=== PATIENT | female | born 1960 | race Caucasian/White ===

== ENCOUNTER → 2016-11-30 | Outpatient (CLI) | payer BC ==
[2016-11-30 08:38] LABS: Basophils # (A) 0.1 k/uL (0-0.2); Basophils % (A) 1 %; CH 31.1; CHCM 32.5; Eosinophils # (A) 0.1 k/uL (0-0.7); Eosinophils % (A) 2 %; HDW 2.29; HGB 14.8 gm/dL (11.4-16.0); Luc # (Auto) 0.14; Luc % (Auto) 2; Lymphocytes % (A) 32 %; MCH 32.3 pg (25.0-35.0); MCHC 33.6 g/dL (31.0-37.0); MCV 95.9 fL (80.0-100.0); Mean Platelet Volume 6.6; Monocytes # (A) 0.3 k/uL (0-1.0); Monocytes % (A) 4 %; Neutrophils # (A) 3.7 k/uL (1.3-7.7); Neutrophils % (A) 59 %; RBC 4.59 m/uL (3.80-5.40); WBC 6.3 k/uL (3.8-10.6); WBC (Perox) 6.25
[2016-11-30 08:58] LABS: ALT 30 U/L (9-52); AST 25 U/L (14-36); Alkaline Phosphatase 39 U/L (38-126); Anion Gap 9 mmol/L; Blood Urea Nitrogen 32 mg/dL (7-17); Calcium 9.9 mg/dL (8.4-10.2); Carbon Dioxide 29 mmol/L (22-30); Chloride 106 mmol/L (98-107); Cholesterol 165 mg/dL (<200); Glucose 108 mg/dL (74-99); HDL Cholesterol 98 mg/dL (40-60); Non-African American GFR(MDRD) >60 (>60 ml/min/1.73 sqM); Potassium 4.8 mmol/L (3.5-5.1); Sodium 144 mmol/L (137-145); Total Bilirubin 0.5 mg/dL (0.2-1.3); Total Protein 7.5 g/dL (6.3-8.2); Triglycerides 41 mg/dL (<150)
--- NOTE | 2016-11-30 12:51 | US ---
EXAMINATION TYPE: US thyroid st tissue head/neck DATE OF EXAM: 11/30/2016 8:07 AM COMPARISON: CTA chest October 03, 2015. CLINICAL HISTORY: E04.1 THYROID NODULE. GLAND SIZE: Right Lobe: 4.5 x 1.8 x 2.4 cm Overall Parenchyma: homogenous Left Lobe: 5.0 x 1.5 x 2.3 cm Overall Parenchyma: homogeneous Isthmus Thickness: 0.4 cm NODULES RIGHT: # of nodules measured on right: 2 1. 0.7 x 0.6 x 0.8cm hyperechoic solid nodule at the mid pole with well-defined margins. This nodul e is wider than tall and shows no intranodular vascularity. Prior size: no prior on PACS 2. 0.3 X 0.3 x 0.2 cm hypoechoic cystic nodule at the lower pole with well-defined margins. This no dule is wider than tall and shows no intranodular vascularity. LEFT: # of nodules measured on left: 2 1. 1.0 X 0.6 x 0.9 cm isoechoic solid nodule at the upper pole with well-defined margins. This nod ule is wider than tall and shows no intranodular vascularity. 2. 0.4 X 0.3 x 0.4 cm hypoechoic cystic nodule at the lower pole with well-defined margins. This no dule is taller than wide and shows no intranodular vascularity. 3.ISTHMUS: # of nodules measured in the isthmus: 0 Bilateral neck scanned, no evidence of lymphadenopathy. Thyroid gland is normal in size and homogeneous in appearance with scattered small nodules identified bilaterally. IMPRESSION: Thyroid gland is normal in size without worrisome greater than 1 cm solid or cystic nodule identified bilaterally.
[2016-12-01 22:20] LABS: Hemoglobin A1C 5.4 % (4.2-6.1)
== END | disposition home or self-care (01) ==
LOC: RADUSWWP 07:36
PROVIDERS: ATTEND Nurse Practitioner Adult Health
DX: E04.1 Nontoxic single thyroid nodule (principal); Z00.00 Encounter for general adult medical examination without abnormal findings; R73.9 Hyperglycemia, unspecified
CPT/HCPCS: 76536; 80053; 80061; 83036; 84439; 84443; 85025

== ENCOUNTER → 2018-02-15 | Outpatient (CLI) | payer BC ==
--- NOTE | 2018-02-16 10:46 | MM ---
Reason for exam: screening (asymptomatic). Last mammogram was performed 3 years and 9 months ago. History: Patient is postmenopausal. Physical Findings: A clinical breast exam by your physician is recommended on an annual basis and results should be correlated with mammographic findings. MG 3D Screening Mammo W/Cad Bilateral CC and MLO view(s) were taken. Prior study comparison: May 15, 2014, bilateral MG screening mammo w CAD. March 26, 2008, bilateral digital screening mammogram. The breast tissue is extremely dense which could obscure a lesion on mammography. There is no discrete abnormality. No significant changes when compared with prior studies. ASSESSMENT: Negative, BI-RAD 1 RECOMMENDATION: Routine screening mammogram of both breasts in 1 year.
== END | disposition home or self-care (01) ==
LOC: RADMAMWWP 11:56
PROVIDERS: ATTEND Obstetrics & Gynecology
DX: Z12.31 Encounter for screening mammogram for malignant neoplasm of breast (principal)
CPT/HCPCS: 77063; 77067

== ENCOUNTER 2019-03-12 16:46 | Emergency (ER) | payer BC ==
[2019-03-12 16:54] VITALS: RESP 20; TEMP 97.5
[2019-03-12] MEDS ORDERED: methylPREDNISolone SOD SUCCI 125 MG/2 ML VIAL IV STA (17:12)
[2019-03-12] MEDS ORDERED: FAMOTIDINE 20 MG/2 ML VIAL IV STA (17:12)
[2019-03-12] MEDS ORDERED: diphenhydrAMINE 50 MG/ML 1 ML VIAL IVP STA (17:12)
[2019-03-12] MEDS ORDERED: SODIUM CHLORIDE 0.9% 1,000 ML IV STA (17:12)
[2019-03-12] MEDS ORDERED: ALBUTEROL NEBULIZED 2.5 MG/3 ML INHALATION STA (17:13)
[2019-03-12 17:21] LABS: Basophils % (A) 0 %; Eosinophils # (A) 0.2 k/uL (0-0.7); Eosinophils % (A) 2 %; HCT 40.8 % (34.0-46.0); HGB 13.4 gm/dL (11.4-16.0); Lymphocytes # (A) 2.7 k/uL (1.0-4.8); Lymphocytes % (A) 31 %; MCH 30.6 pg (25.0-35.0); MCHC 32.9 g/dL (31.0-37.0); MCV 93.2 fL (80.0-100.0); Mean Platelet Volume 6.9; Monocytes # (A) 0.4 k/uL (0-1.0); Monocytes % (A) 5 %; Neutrophils # (A) 5.1 k/uL (1.3-7.7); Neutrophils % (A) 60 %; Platelet Count 256 k/uL (150-450); RBC 4.37 m/uL (3.80-5.40); RDW 13.6 % (11.5-15.5); WBC 8.5 k/uL (3.8-10.6)
[2019-03-12 17:29] LABS: African American GFR (CKD) >90 (>60 ml/min/1.73 sqM); Anion Gap 3 mmol/L; Blood Urea Nitrogen 22 mg/dL (7-17); Calcium 9.8 mg/dL (8.4-10.2); Carbon Dioxide 29 mmol/L (22-30); Chloride 103 mmol/L (98-107); Glucose 107 mg/dL (74-99); Non-African American GFR(CKD) >90 (>60 ml/min/1.73 sqM); Potassium 4.1 mmol/L (3.5-5.1); Sodium 135 mmol/L (137-145)
--- NOTE | 2019-03-12 18:00 | ED ---
Allergic Reaction HPI - General Chief complaint: Allergic Reaction Stated complaint: poss allergic rxn Time Seen by Provider: 03/12/19 17:01 Source: patient, RN notes reviewed, old records reviewed Mode of arrival: wheelchair Limitations: no limitations - History of Present Illness Initial Comments: 4-year-old female presents emergency department today for evaluation of concern for ALLERGIC reaction. She states that she feels tightness in her throat and chest. 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 She states she's had a firm mass with some erythema. Patient states that she had no significant reaction at that time but seems easily. Patient is a smoker complains of wheezing. - Related Data Home Medications Medication Instructions Recorded Confirmed Ascorbic Acid [Vitamin C] 1 tab PO BID 02/13/14 03/12/19 Calcium Carbonate/Vitamin D3 1 tab PO DAILY 02/13/14 03/12/19 [Caltrate 600 + D Tablet] Fish Oil/Dha/Epa [Fish Oil 1,200 1 tab PO DAILY 02/13/14 03/12/19 mg Fish Oil] Glucosamine Sulfate 500 mg PO DAILY 02/13/14 03/12/19 Multivitamin/Iron/Folic Acid 1 tab PO DAILY 02/13/14 03/12/19 [Centrum Complete Multivit Tab] Naproxen Sodium [Aleve] 220 mg PO BID 02/13/14 03/12/19 Vitamin E (Dl,Tocopheryl Acet) 400 unit PO BID 02/13/14 03/12/19 [Vitamin E] Cetirizine HCl 10 mg PO DAILY 10/03/15 03/12/19 Cholecalciferol [Vitamin D3] 2,000 unit PO DAILY 10/03/15 03/12/19 Cyanocobalamin (Vitamin B-12) 2,000 mcg PO DAILY 10/03/15 03/12/19 [Vitamin B-12] Vit A/Vit C/Vit E/Zinc/Copper 1 cap PO DAILY 10/03/15 03/12/19 [ICAPS SOFTGEL] Previous Rx's Medication Instructions Recorded methylPREDNISolone Dose Pack 4 mg PO DIRECTED #21 package 03/12/19 [Medrol Dose Pack] Allergies Allergy/AdvReac Type Severity Reaction Status Date / Time codeine Allergy Anaphylaxis Verified 03/12/19 17:36 levofloxacin [From Levaquin] Allergy Unknown Verified 03/12/19 17:36 red dye Allergy Swelling Verified 03/12/19 17:36 chocolate Allergy Swelling Uncoded 03/12/19 16:54 nuts Allergy Unknown Uncoded 03/12/19 16:54 STEROIDS AdvReac Unknown Uncoded 03/12/19 16:54 Review of Systems ROS Statement: Those systems with pertinent positive or pertinent negative responses have been documented in the HPI. ROS Other: All systems not noted in ROS Statement are negative. 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 Limitations: no limitations General appearance: alert, in no apparent distress Head exam: Present: atraumatic, normocephalic, normal inspection Eye exam: Present: normal appearance, PERRL, EOMI. Absent: scleral icterus, conjunctival injection, periorbital swelling ENT exam: Present: normal exam, mucous membranes moist Neck exam: Present: normal inspection. Absent: tenderness, meningismus, lymphadenopathy Respiratory exam: Present: wheezes, other (firm mobile 4cm mass in L breast at 10 oclock position. No surrounding erythema. ). Absent: normal lung sounds bilaterally, respiratory distress, rales, rhonchi, stridor Cardiovascular Exam: Present: regular rate, normal rhythm, normal heart sounds. Absent: systolic murmur, diastolic murmur, rubs, gallop, clicks GI/Abdominal exam: Present: soft, normal bowel sounds. Absent: distended, tenderness, guarding, rebound, rigid Neurological exam: Present: alert, oriented X3, CN II-XII intact Psychiatric exam: Present: normal affect, normal mood Skin exam: Present: warm, dry, intact, normal color. Absent: rash Course Vital Signs 03/12/19 03/12/19 03/12/19 16:49 16:58 17:00 Temperature 97.5 F L Pulse Rate 85 Respiratory 20 Rate Blood Pressure 156/95 152/88 O2 Sat by Pulse 92 L 93 L 96 Oximetry 03/12/19 03/12/19 03/12/19 17:27 17:30 17:47 Temperature Pulse Rate 80 77 84 Respiratory Rate Blood Pressure 144/96 O2 Sat by Pulse 98 Oximetry 03/12/19 03/12/19 03/12/19 18:00 18:30 19:00 Temperature Pulse Rate 77 81 82 Respiratory Rate Blood Pressure 144/96 137/77 137/77 O2 Sat by Pulse 97 96 92 L Oximetry 03/12/19 19:30 Temperature Pulse Rate 80 Respiratory Rate Blood Pressure 134/70 O2 Sat by Pulse Oximetry Medical Decision Making - Medical Decision Making 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 Patient had wheezing and given solumedrol, albuterol treatment with improvement. Discussed more concern for asthma exacerbtoin rahter than allergic reaction with no acute source for throat tightness or wheezing. She also has a mobile left breast mass, last mammogram was last year. Discussedshe needs to get another and follow up with OB and nkechi ast surgeon. All questions answered. Will DC with course of steroids. Patient instructed to use inhaler she has. - Lab Data Result diagrams: 03/12/19 17:08 03/12/19 17:08 Lab Results 03/12/19 03/12/19 Range/Units 17:08 17:08 WBC 8.5 (3.8-10.6) k/uL RBC 4.37 (3.80-5.40) m/uL Hgb 13.4 (11.4-16.0) gm/dL Hct 40.8 (34.0-46.0) % MCV 93.2 (80.0-100.0) fL MCH 30.6 (25.0-35.0) pg MCHC 32.9 (31.0-37.0) g/dL RDW 13.6 (11.5-15.5) % Plt Count 256 (150-450) k/uL Neutrophils % 60 % Lymphocytes % 31 % Monocytes % 5 % Eosinophils % 2 % Basophils % 0 % Neutrophils # 5.1 (1.3-7.7) k/uL Lymphocytes # 2.7 (1.0-4.8) k/uL Monocytes # 0.4 (0-1.0) k/uL Eosinophils # 0.2 (0-0.7) k/uL Basophils # 0.0 (0-0.2) k/uL Sodium 135 L (137-145) mmol/L Potassium 4.1 (3.5-5.1) mmol/L Chloride 103 (98-107) mmol/L Carbon Dioxide 29 (22-30) mmol/L Anion Gap 3 mmol/L BUN 22 H (7-17) mg/dL Creatinine 0.37 L (0.52-1.04) mg/dL Est GFR (CKD-EPI)AfAm >90 (>60 ml/min/1.73 sqM) Est GFR (CKD-EPI)NonAf >90 (>60 ml/min/1.73 sqM) Glucose 107 H (74-99) mg/dL Calcium 9.8 (8.4-10.2) mg/dL Disposition Clinical Impression: Left breast mass, Chronic cough Disposition: HOME SELF-CARE Condition: Good Instructions (If sedation given, give patient instructions): Chronic Cough (ED), Breast Mass (ED) Additional Instructions: Patient has a follow-up with [facility]PER[facility]IEF primary care doctor. Recommend also following with breast surgeon specialty. Patient should return to the emergency department if any alarming signs or symptoms occur. Prescriptions: methylPREDNISolone Dose Pack [Medrol Dose Pack] 4 mg PO DIRECTED #21 package Is patient prescribed a controlled substance at d/c from ED?: No Referrals: Manny Delacruz MD [Primary Care Provider] - 1-2 days Robyn Hogan MD [STAFF PHYSICIAN] - 1-2 days Time of Disposition: 19:28
--- NOTE | 2019-03-12 19:12 | XR ---
EXAMINATION TYPE: XR chest 2V DATE OF EXAM: 03/12/2019 COMPARISON: Chest x-ray and CT chest October 03, 2015 HISTORY: Shortness of breath and cough with chest pain. TECHNIQUE: Frontal and lateral views of the chest are obtained. FINDINGS: Overlying EKG leads are redemonstrated. There is no focal air space opacity, pleural effusi on, or pneumothorax seen. The cardiac silhouette size is within normal limits. The osseous structu res are intact. IMPRESSION: No acute cardiopulmonary process. No significant change from prior studies.
[2019-03-12 19:49] VITALS: BP 134/70; PULSE 80
== END 2019-03-12 20:05 | disposition home or self-care (01) ==
LOC: EC 16:46
DX: N63.21 Unspecified lump in the left breast, upper outer quadrant (principal); R05 Cough; R07.89 Other chest pain; R06.2 Wheezing; F17.200 Nicotine dependence, unspecified, uncomplicated; Z98.890 Other specified postprocedural states; Z79.1 Long term (current) use of non-steroidal anti-inflammatories (NSAID); Z79.899 Other long term (current) drug therapy; Z88.5 Allergy status to narcotic agent; Z88.1 Allergy status to other antibiotic agents; Z91.048 Other nonmedicinal substance allergy status; Z91.018 Allergy to other foods; Z88.8 Allergy status to other drugs, medicaments and biological substances
CPT/HCPCS: 99285; 96374; 96375 ×2; 96361; 36415; 94640; 80048; 85025; 71046; J1200; J2930

== ENCOUNTER → 2019-04-30 | Outpatient (CLI) | payer BC ==
--- NOTE | 2019-05-01 10:52 | MM ---
Reason for exam: screening (asymptomatic). Last mammogram was performed 1 year and 2 months ago. History: Patient is postmenopausal. Physical Findings: A clinical breast exam by your physician is recommended on an annual basis and results should be correlated with mammographic findings. MG 3D Screening Mammo W/Cad Bilateral CC and MLO view(s) were taken. Prior study comparison: February 15, 2018, bilateral MG 3d screening mammo w/cad. May 15, 2014, bilateral MG screening mammo w CAD. The breast tissue is heterogeneously dense. This may lower the sensitivity of mammography. There are benign appearing round calcifications bilaterally. There is no discrete abnormality. ASSESSMENT: Benign, BI-RAD 2 RECOMMENDATION: Routine screening mammogram of both breasts in 1 year.
== END | disposition home or self-care (01) ==
LOC: RADMAMWWP 06:57
PROVIDERS: ATTEND Obstetrics & Gynecology
DX: Z12.31 Encounter for screening mammogram for malignant neoplasm of breast (principal)
CPT/HCPCS: 77063; 77067

== ENCOUNTER 2020-04-22 16:12 | Emergency (ER) | payer BC ==
[2020-04-22] MEDS ORDERED: FAMOTIDINE 20 MG/2 ML VIAL IV STA (16:19)
[2020-04-22] MEDS ORDERED: diphenhydrAMINE 50 MG/ML 1 ML VIAL IVP STA (16:19)
[2020-04-22] MEDS ORDERED: methylPREDNISolone SOD SUCCI 125 MG/2 ML VIAL IV STA (16:19)
[2020-04-22 16:22] VITALS: TEMP 98.7
--- NOTE | 2020-04-22 16:22 | ED ---
General Adult HPI - General Chief complaint: Allergic Reaction Stated complaint: bee sting Time Seen by Provider: 04/22/20 16:14 Source: patient Limitations: no limitations - History of Present Illness Initial comments: patient is a pleasant 59-year-old female presenting to the emergency department following a bee sting. Incident occurred just around 15 minutes ago. Patient w as stung in her left tricep region. Patient has mild discomfort there. Patient does feel like her throat is a little bit tight. No dyspnea. No swelling of her tongue or lips. Patient does have history of previous ALLERGIC reaction with bee stings that included difficulty breathing and throat swelling. Patient states she no longer has her EpiPen. No leg pain or leg swelling. No fever. - Related Data Home Medications Medication Instructions Recorded Confirmed Ascorbic Acid [Vitamin C] 1 tab PO BID 02/13/14 03/12/19 Calcium Carbonate/Vitamin D3 1 tab PO DAILY 02/13/14 03/12/19 [Caltrate 600 + D Tablet] Fish Oil/Dha/Epa [Fish Oil 1,200 1 tab PO DAILY 02/13/14 03/12/19 mg Fish Oil] Glucosamine Sulfate 500 mg PO DAILY 02/13/14 03/12/19 Multivitamin/Iron/Folic Acid 1 tab PO DAILY 02/13/14 03/12/19 [Centrum Complete Multivit Tab] Naproxen Sodium [Aleve] 220 mg PO BID 02/13/14 03/12/19 Vitamin E (Dl,Tocopheryl Acet) 400 unit PO BID 02/13/14 03/12/19 [Vitamin E] Cetirizine HCl 10 mg PO DAILY 10/03/15 03/12/19 Cholecalciferol [Vitamin D3] 2,000 unit PO DAILY 10/03/15 03/12/19 Cyanocobalamin (Vitamin B-12) 2,000 mcg PO DAILY 10/03/15 03/12/19 [Vitamin B-12] Vit A/Vit C/Vit E/Zinc/Copper 1 cap PO DAILY 10/03/15 03/12/19 [ICAPS SOFTGEL] Previous Rx's Medication Instructions Recorded methylPREDNISolone Dose Pack 4 mg PO DIRECTED #21 package 03/12/19 [Medrol Dose Pack] predniSONE [Deltasone] 20 mg PO BID #10 tab 04/22/20 Allergies Allergy/AdvReac Type Severity Reaction Status Date / Time bee venom protein (honey bee) Allergy Unknown Verified 04/22/20 16:22 codeine Allergy Anaphylaxis Verified 04/22/20 16:22 levofloxacin [From Levaquin] Allergy Unknown Verified 04/22/20 16:22 red dye Allergy Swelling Verified 04/22/20 16:22 chocolate Allergy Swelling Uncoded 04/22/20 16:22 nuts Allergy Unknown Uncoded 04/22/20 16:22 STEROIDS AdvReac Unknown Uncoded 04/22/20 16:22 Review of Systems ROS Statement: Those systems with pertinent positive or pertinent negative responses have been documented in the HPI. ROS Other: All systems not noted in ROS Statement are negative. Constitutional: Denies: fever Eyes: Denies: eye pain ENT: Reports: as per HPI. 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 History of Any Multi-Drug Resistant Organisms: None Reported Past Surgical History: Cardiac Ablation, Tubal Ligation Additional Past Surgical History / Comment(s): colonoscopy Past Psychological History: No Psychological Hx Reported Past Alcohol Use History: Daily Past Drug Use History: None Reported General Exam Limitations: no limitations General appearance: alert, in no apparent distress Head exam: Present: normocephalic Eye exam: Present: normal appearance, PERRL ENT exam: Present: normal oropharynx, other (No angioedema of the lips or tongue or pharynx.) Neck exam: Present: normal inspection Respiratory exam: Present: normal lung sounds bilaterally. Absent: respiratory distress, wheezes Cardiovascular Exam: Present: regular rate, normal rhythm GI/Abdominal exam: Present: soft. Absent: tenderness Extremities exam: Present: normal inspection Neurological exam: Present: alert Psychiatric exam: Present: normal affect, normal mood Skin exam: Present: other (Puncture left upper tricep consistent with recent reported bee sting) Course Vital Signs 04/22/20 04/22/20 04/22/20 16:19 16:28 17:27 Temperature 98.7 F Pulse Rate 84 77 79 Respiratory 16 16 17 Rate Blood Pressure 184/110 144/94 152/95 O2 Sat by Pulse 94 L 95 94 L Oximetry - Reevaluation(s) Reevaluation #1: 04/22/20 16:53 Patient reevaluated and feels slightly improved. Medical Decision Making - Medical Decision Making Patient again reevaluated and feeling even better. Patient is requesting discharge. Disposition Clinical Impression: Allergic reaction, Hymenoptera reaction Disposition: HOME SELF-CARE Condition: Stable Instructions (If sedation given, give patient instructions): Insect Bite or Sting (ED), Allergies (ED) Additional Instructions: Continue [id number] Claritin or loratadine for the next 5 days. Prescription for prednisone has been sent your pharmacy, [facility]. Return for difficulty breathing, swelling of the throat or tongue or lips or face, worsening symptoms or any other concerns. Please follow-up with your regular doctor in the next couple days for recheck. Prescriptions: predniSONE [Deltasone] 20 mg PO BID #10 tab Is patient prescribed a controlled substance at d/c from ED?: No Referrals: Manny Delacruz MD [Primary Care Provider] - 1-2 days Time of Disposition: 17:31
[2020-04-22 17:29] VITALS: BP 152/95; PULSE 79; RESP 17
== END 2020-04-22 19:03 | disposition home or self-care (01) ==
LOC: EC 16:12
DX: T63.441A Toxic effect of venom of bees, accidental (unintentional), initial encounter (principal); Z79.1 Long term (current) use of non-steroidal anti-inflammatories (NSAID); Z79.899 Other long term (current) drug therapy; Z91.030 Bee allergy status; Z88.5 Allergy status to narcotic agent; Z91.018 Allergy to other foods; Z88.1 Allergy status to other antibiotic agents; Z91.02 Food additives allergy status; Z88.8 Allergy status to other drugs, medicaments and biological substances
CPT/HCPCS: 99283; 96374; 96375 ×2; J1200; J2930

== ENCOUNTER → 2020-09-24 | Outpatient (CLI) | payer BC ==
--- NOTE | 2020-09-24 10:50 | XR ---
EXAMINATION TYPE: XR cervical spine limited DATE OF EXAM: 09/24/2020 CLINICAL HISTORY: pain TECHNIQUE: 3 views of the cervical spine are submitted. COMPARISON: None. FINDINGS: There is satisfactory in alignment without evidence of acute fracture or dislocation. The pre-vertebral soft tissue appears within normal limits. Moderate to severe degenerative disc space n arrowing as well as endplate sclerosis and spondylosis at C4-5 and C5-6. 3 mm anterolisthesis of C3 o n C4. Degenerative change of the cervical apophyseal joints. The C1-C2 articulation is unremarkable o n the open mouth view. IMPRESSION: No acute fracture or dislocation is seen in the cervical spine.
== END | disposition home or self-care (01) ==
LOC: RADXRMAIN 10:13
PROVIDERS: ATTEND Family Medicine
DX: M54.2 Cervicalgia (principal)
CPT/HCPCS: 72040

== ENCOUNTER → 2020-10-23 | Outpatient (CLI) | payer BC ==
--- NOTE | 2020-10-23 16:31 | XR ---
EXAMINATION TYPE: XR chest 2V DATE OF EXAM: 10/23/2020 COMPARISON: Chest x-ray 03/12/2019, chest CT 10/13/2015 HISTORY: Chest pain TECHNIQUE: Frontal and lateral views of the chest are obtained. FINDINGS: There is no focal air space opacity, pleural effusion, or pneumothorax seen. The cardiac silhouette size is within normal limits. There is hyperinflation consistent with underlying COPD. Pro minence of pulmonary artery may be indicative of pulmonary artery hypertension. The osseous structur es are intact. IMPRESSION: No acute cardiopulmonary process. There is emphysema, pulmonary artery hypertension shou ld be considered.
== END ==
LOC: RADXRMAIN 11:25
PROVIDERS: ATTEND Family Medicine
DX: J43.9 Emphysema, unspecified (principal)
CPT/HCPCS: 71046

== ENCOUNTER → 2020-10-27 | Outpatient (CLI) | payer BC ==
[~2020-10-27] MED LIST: REGADENOSON 0.4 MG/5 ML SYRINGE IV PRN
--- NOTE | 2020-10-27 13:05 | NM ---
EXAMINATION TYPE: NM stress lexiscan cardiolite DATE OF EXAM: 10/27/2020 COMPARISON: 10/07/2011 HISTORY: Angina TECHNIQUE: After the intravenous administration of 9.3 mCi Tc 99m Sestamibi - Cardiolite resting SPE CT images acquired 45 minutes post injection. The patient received 0.4mg Lexiscan, 23.9 mCi Tc 99m Sestamibi - Stress images obtained [address] injection FINDINGS: Review of stress and rest SPECT images demonstrates no distinct perfusion abnormality. Gated analysi s shows normal wall motion with an estimated left ventricular ejection fraction of 71 %. IMPRESSION: No scintigraphic evidence for reversible ischemia.
--- NOTE | 2020-10-27 15:12 | EST ---
EXERCISE STRESS AGE: 60 SEX: Female HT: 3 ft. 2 in. WT: 120 lbs. PROTOCOL: Lexiscan Cardiolite STAGE: N/A DURATION OF EXERCISE: N/A HEART RATE REST: 91 BLOOD PRESSURE REST: 147/96 MAXIMUM HEART RATE ACHIEVED: 118 MAXIMUM BLOOD PRESSURE: 171/87 85% MPHR: 134 100% MPHR: 158 METS: N/A INDICATIONS: Chest pain CLINICAL INFORMATION: Baseline rhythm is a sinus mechanism, rate of 91, normal intervals. Normal electrocardiogram. Baseline blood pressure 147/96 mmHg. Patient received injection of Lexiscan. Electrocardiograph monitoring revealed no evidence of diagnostic ischemic ST deviation. Rare PVCs were noted. Cardiolite was injected per protocol. CONCLUSION: 1. Nondiagnostic electrocardiograph stress testing. 2. Nuclear images will be reported separately. MMODL / IJN: [id number] /
== END | disposition home or self-care (01) ==
LOC: RADNMMAIN 07:50
PROVIDERS: ATTEND Family Medicine
DX: R94.31 Abnormal electrocardiogram [ECG] [EKG] (principal)
CPT/HCPCS: 93017; 78452; A9500; J2785

== ENCOUNTER → 2020-10-31 | Outpatient (CLI) | payer BC ==
--- NOTE | 2020-10-31 11:27 | MR ---
EXAMINATION TYPE: MR cervical spine wo con DATE OF EXAM: 10/31/2020 COMPARISON: Plain film 09/24/2020 HISTORY: Cervical radiculopathy TECHNIQUE: Multiplanar, multisequence images of the cervical spine were acquired. C2-C3: No evidence for degenerative disc disease. No disc bulge/herniation or protrusion. No Canal stenosis. Foramina are patent bilaterally. C3-C4: Posterior extension endplate disc complex results in some mild central canal stenosis, uncover tebral joint hypertrophy and facet arthropathy contribute to cause foraminal encroachment. On the rig ht. C4-C5: Posterior extension endplate disc complex results in moderate central canal stenosis, is likel y contacting the anterior cervical cord. Foraminal encroachment is present bilaterally. C5-C6: Posterior extension endplate disc complex is present causing anterior mass effect on the theca l sac, there is mild central canal stenosis. Bilateral foraminal encroachment present due to uncovert ebral joint hypertrophy and facet arthropathy. C6-C7: Posterior broad-based disc bulge causes slight anterior mass effect on the thecal sac. Some fo raminal encroachment is present on the left greater than right. C7-T1: No evidence for degenerative disc disease. No disc bulge/herniation or protrusion. No Canal stenosis. Foramina are patent bilaterally. Cervical segments are intact. There is normal alignment. Cervical spinal cord is of normal signal w ithin the limitations of the exam, there is some artifact present at C4-5 and C5-6. Craniovertebral junction relationships are within normal limits. There is multilevel spondylosis. Loss of disc heigh t and signal is present at the intervertebral levels. Endplate discogenic marrow signal changes are p resent. There is minimal anterolisthesis grade 1 C3-4, retrolisthesis grade 1 C5-6. IMPRESSION: Degenerative disc disease, neural foraminal encroachment.
== END | disposition home or self-care (01) ==
LOC: RADMRIMAIN 08:59
PROVIDERS: ATTEND Family Medicine
DX: M50.10 Cervical disc disorder with radiculopathy, unspecified cervical region (principal)
CPT/HCPCS: 72141

== ENCOUNTER → 2020-11-24 | Outpatient (CLI) | payer BC | END | disposition home or self-care (01) | LOC: LABWHC1 16:49 | PROVIDERS: ATTEND Family Medicine | DX: U07.1 COVID-19 (principal) | CPT/HCPCS: U0003; C9803; U0005 ==

== ENCOUNTER → 2021-05-20 | Outpatient (CLI) | payer BC ==
--- NOTE | 2021-05-25 10:18 | MM ---
Reason for exam: screening (asymptomatic). Last mammogram was performed 2 years and 1 month ago. History: Patient is postmenopausal. Physical Findings: A clinical breast exam by your physician is recommended on an annual basis and results should be correlated with mammographic findings. MG 3D Screening Mammo W/Cad Bilateral CC and MLO view(s) were taken. Prior study comparison: April 30, 2019, bilateral MG 3d screening mammo w/cad. February 15, 2018, bilateral MG 3d screening mammo w/cad. May 15, 2014, bilateral MG screening mammo w CAD. The breast tissue is heterogeneously dense. This may lower the sensitivity of mammography. No significant changes when compared with prior studies. ASSESSMENT: Negative, BI-RAD 1 RECOMMENDATION: Routine screening mammogram of both breasts in 1 year.
== END | disposition home or self-care (01) ==
LOC: RADMAMWWP 14:34
PROVIDERS: ATTEND Family Medicine
DX: Z12.31 Encounter for screening mammogram for malignant neoplasm of breast (principal)
CPT/HCPCS: 77063; 77067

== ENCOUNTER 2021-05-27 10:22 | Emergency (ER) | payer BC ==
[2021-05-27 10:27] VITALS: RESP 18; TEMP 97.9
--- NOTE | 2021-05-27 11:05 | ED ---
General Adult HPI - General Chief complaint: Chest Pain Stated complaint: Chest pain Source: patient, RN notes reviewed Mode of arrival: ambulatory Limitations: no limitations - History of Present Illness Initial comments: 60-year-old female presents to the emergency room for chief complaint of chest pain. 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 Admits to nausea, denies vomiting. Patient is a smoker of 40 years. Patient denies hypercholesterolemia or hyperlipidemia. No history of hypertension Patient has no other complaints at this time including shortness of breath, chest pain, abdominal pain, nausea or vomiting, headache, or visual changes. - Related Data Home Medications Medication Instructions Recorded Confirmed Ascorbic Acid [Vitamin C] 500 mg PO DAILY 02/13/14 05/27/21 Calcium Carbonate/Vitamin D3 1 tab PO DAILY 02/13/14 05/27/21 [Caltrate 600 + D Tablet] Fish Oil/Dha/Epa [Fish Oil 1,200 2 tab PO DAILY 02/13/14 05/27/21 mg Fish Oil] Multivitamin/Iron/Folic Acid 1 tab PO DAILY 02/13/14 05/27/21 [Centrum Complete Multivit Tab] Naproxen Sodium [Aleve] 660 mg PO DAILY 02/13/14 05/27/21 Vitamin E (Dl,Tocopheryl Acet) 800 unit PO DAILY 02/13/14 05/27/21 [Vitamin E] Cholecalciferol [Vitamin D3] 6,000 unit PO DAILY 10/03/15 05/27/21 Glucosamine HCl/Chondroitin Hernandez 3 cap PO DAILY 05/27/21 05/27/21 [Glucosamine-Chondroitin Cap] Loratadine 10 mg PO DAILY 05/27/21 05/27/21 Vit C/E/Zn/Coppr/Lutein/Zeaxan 2 cap PO DAILY 05/27/21 05/27/21 [Preservision Areds 2 Softgel] Allergies Allergy/AdvReac Type Severity Reaction Status Date / Time bee venom protein (honey bee) Allergy Unknown Verified 05/27/21 11:28 codeine Allergy Anaphylaxis Verified 05/27/21 11:28 levofloxacin [From Levaquin] Allergy Unknown Verified 05/27/21 11:28 red dye Allergy Swelling Verified 05/27/21 11:28 chocolate Allergy Swelling Uncoded 04/22/20 16:22 nuts Allergy Unknown Uncoded 04/22/20 16:22 STEROIDS AdvReac Unknown Uncoded 04/22/20 16:22 Review of Systems ROS Statement: Those systems with pertinent positive or pertinent negative responses have been documented in the HPI. ROS Other: All systems not noted in ROS Statement are negative. Past Medical History Past Medical History: No Reported History Additional Past Medical History / Comment(s): racing heart History of Any Multi-Drug Resistant Organisms: None Reported Past Surgical History: Cardiac Ablation, Tubal Ligation Additional Past Surgical History / Comment(s): colonoscopy Past Psychological History: No Psychological Hx Reported Smoking Status: Current every day smoker Past Alcohol Use History: Daily Past Drug Use History: None Reported General Exam Limitations: no limitations General appearance: alert, in no apparent distress Head exam: Present: atraumatic Eye exam: Present: normal appearance, PERRL, EOMI. Absent: scleral icterus, conjunctival injection ENT exam: Present: normal exam, mucous membranes moist Neck exam: Present: normal inspection, full ROM. Absent: tenderness Respiratory exam: Present: normal lung sounds bilaterally. Absent: respiratory distress, wheezes Cardiovascular Exam: Present: regular rate, normal rhythm, normal heart sounds GI/Abdominal exam: Present: soft, normal bowel sounds. Absent: distended, tenderness Neurological exam: Present: alert Course Vital Signs 05/27/21 10:23 Temperature 97.9 F Pulse Rate 88 Respiratory 18 Rate Blood Pressure 148/92 O2 Sat by Pulse 95 Oximetry EKG Findings - EKG Comments: EKG Findings:: Normal sinus rhythm, ventricular rate 78, NV interval 166, QTc 460 Medical Decision Making - Medical Decision Making Vitals are stable. Patient is well-appearing. CBC CMP unremarkable. Troponin is negative. Chest x-ray shows no acute process. I did recommend admission the patient for cardiology consultation. However she refuses, states that she needs to watch her dog and that her doors open at her house. She has no one to help her and is refusing to stay in the hospital, capable of making medical decisions. She did agree however to a repeat 3 hour troponin which was neg ative. I discussed with Dr. Delacruz and he is aware, wants her to call office tomorrow so she can follow-up. She will return here for any worsening symptoms. - Lab Data Result diagrams: 05/27/21 10:58 05/27/21 10:58 Lab Results 05/27/21 05/27/21 05/27/21 Range/Units 10:58 10:58 10:58 WBC 7.6 (3.8-10.6) k/uL RBC 4.94 (3.80-5.40) m/uL Hgb 16.1 H (11.4-16.0) gm/dL Hct 48.5 H (34.0-46.0) % MCV 98.2 (80.0-100.0) fL MCH 32.5 (25.0-35.0) pg MCHC 33.1 (31.0-37.0) g/dL RDW 12.7 (11.5-15.5) % Plt Count 236 (150-450) k/uL MPV 7.1 Neutrophils % 59 % Lymphocytes % 33 % Monocytes % 5 % Eosinophils % 1 % Basophils % 0 % Neutrophils # 4.5 (1.3-7.7) k/uL Lymphocytes # 2.5 (1.0-4.8) k/uL Monocytes # 0.4 (0-1.0) k/uL Eosinophils # 0.1 (0-0.7) k/uL Basophils # 0.0 (0-0.2) k/uL PT 9.5 (9.0-12.0) sec INR 0.9 (<1.2) APTT 19.9 L (22.0-30.0) sec D-Dimer 0.20 (<0.60) mg/L FEU Sodium 139 (137-145) mmol/L Potassium 4.2 (3.5-5.1) mmol/L Chloride 102 (98-107) mmol/L Carbon Dioxide 29 (22-30) mmol/L Anion Gap 8 mmol/L BUN 22 H (7-17) mg/dL Creatinine 0.40 L (0.52-1.04) mg/dL Est GFR (CKD-EPI)AfAm >90 (>60 ml/min/1.73 sqM) Est GFR (CKD-EPI)NonAf >90 (>60 ml/min/1.73 sqM) Glucose 103 H (74-99) mg/dL Calcium 10.0 (8.4-10.2) mg/dL Magnesium 1.8 (1.6-2.3) mg/dL Total Bilirubin 0.4 (0.2-1.3) mg/dL AST 28 (14-36) U/L ALT 22 (4-34) U/L Alkaline Phosphatase 48 (38-126) U/L Troponin I (0.000-0.034) ng/mL Total Protein 7.1 (6.3-8.2) g/dL Albumin 4.2 (3.5-5.0) g/dL Lipase 226 (23-300) U/L Coronavirus (PCR) (Not Detectd) 05/27/21 05/27/21 05/27/21 Range/Units 10:58 11:48 13:10 WBC (3.8-10.6) k/uL RBC (3.80-5.40) m/uL Hgb (11.4-16.0) gm/dL Hct (34.0-46.0) % MCV (80.0-100.0) fL MCH (25.0-35.0) pg MCHC (31.0-37.0) g/dL RDW (11.5-15.5) % Plt Count (150-450) k/uL MPV Neutrophils % % Lymphocytes % % Monocytes % % Eosinophils % % Basophils % % Neutrophils # (1.3-7.7) k/uL Lymphocytes # (1.0-4.8) k/uL Monocytes # (0-1.0) k/uL Eosinophils # (0-0.7) k/uL Basophils # (0-0.2) k/uL PT (9.0-12.0) sec INR (<1.2) APTT (22.0-30.0) sec D-Dimer (<0.60) mg/L FEU Sodium (137-145) mmol/L Potassium (3.5-5.1) mmol/L Chloride (98-107) mmol/L Carbon Dioxide (22-30) mmol/L Anion Gap mmol/L BUN (7-17) mg/dL Creatinine (0.52-1.04) mg/dL Est GFR (CKD-EPI)AfAm (>60 ml/min/1.73 sqM) Est GFR (CKD-EPI)NonAf (>60 ml/min/1.73 sqM) Glucose (74-99) mg/dL Calcium (8.4-10.2) mg/dL Magnesium (1.6-2.3) mg/dL Total Bilirubin (0.2-1.3) mg/dL AST (14-36) U/L ALT (4-34) U/L Alkaline Phosphatase (38-126) U/L Troponin I <0.012 <0.012 (0.000-0.034) ng/mL Total Protein (6.3-8.2) g/dL Albumin (3.5-5.0) g/dL Lipase (23-300) U/L Coronavirus (PCR) Not Detected (Not Detectd) Disposition Clinical Impression: Chest pain Disposition: HOME SELF-CARE Condition: Good Instructions (If sedation given, give patient instructions): Chest Pain (ED) Additional Instructions: Please follow up with Dr. Delacruz by calling tomorrow to the office. Return to the emergency room for any worsening symptoms. Is patient prescribed a controlled substance at d/c from ED?: No Referrals: Manny Delacruz MD [Primary Care Provider] - 1-2 days Time of Disposition: 14:06
[2021-05-27 11:16] LABS: Basophils % (A) 0 %; Eosinophils # (A) 0.1 k/uL (0-0.7); Eosinophils % (A) 1 %; HCT 48.5 % (34.0-46.0); HGB 16.1 gm/dL (11.4-16.0); Lymphocytes # (A) 2.5 k/uL (1.0-4.8); Lymphocytes % (A) 33 %; MCH 32.5 pg (25.0-35.0); MCHC 33.1 g/dL (31.0-37.0); MCV 98.2 fL (80.0-100.0); Mean Platelet Volume 7.1; Monocytes # (A) 0.4 k/uL (0-1.0); Monocytes % (A) 5 %; Neutrophils # (A) 4.5 k/uL (1.3-7.7); Neutrophils % (A) 59 %; Platelet Count 236 k/uL (150-450); RBC 4.94 m/uL (3.80-5.40); RDW 12.7 % (11.5-15.5); WBC 7.6 k/uL (3.8-10.6)
[2021-05-27 11:31] LABS: ALT 22 U/L (4-34); AST 28 U/L (14-36); African American GFR (CKD) >90 (>60 ml/min/1.73 sqM); Albumin 4.2 g/dL (3.5-5.0); Alkaline Phosphatase 48 U/L (38-126); Anion Gap 8 mmol/L; Blood Urea Nitrogen 22 mg/dL (7-17); Carbon Dioxide 29 mmol/L (22-30); Chloride 102 mmol/L (98-107); Glucose 103 mg/dL (74-99); Lipase 226 U/L (23-300); Magnesium 1.8 mg/dL (1.6-2.3); Non-African American GFR(CKD) >90 (>60 ml/min/1.73 sqM); Potassium 4.2 mmol/L (3.5-5.1); Sodium 139 mmol/L (137-145); Total Bilirubin 0.4 mg/dL (0.2-1.3); Total Protein 7.1 g/dL (6.3-8.2)
[2021-05-27 11:37] LABS: INR 0.9 (<1.2); Prothrombin Time 9.5 sec (9.0-12.0)
--- NOTE | 2021-05-27 11:39 | XR ---
EXAMINATION TYPE: XR chest 2V DATE OF EXAM: 05/27/2021 COMPARISON: 10/23/2020 . TECHNIQUE: PA and lateral views submitted. HISTORY: Chest pain FINDINGS: The lungs are clear and there is no pneumothorax, pleural effusion, or focal pneumonia. Hyperinflati on suggestive of COPD. Biapical pleural thickening. Prominence of the pulmonary arteries. Hypertrophi c and degenerative change of the spine. IMPRESSION: 1. No acute process. Correlate for COPD and pulmonary arterial hypertension.
[2021-05-27 11:44] LABS: Partial Thromboplastin Time 19.9 sec (22.0-30.0)
[2021-05-27 14:19] VITALS: BP 161/92; PULSE 75
== END 2021-05-27 14:17 | disposition home or self-care (01) ==
LOC: EC 10:22
DX: R07.9 Chest pain, unspecified (principal); F17.200 Nicotine dependence, unspecified, uncomplicated; Z91.018 Allergy to other foods; Z88.5 Allergy status to narcotic agent; Z88.8 Allergy status to other drugs, medicaments and biological substances; Z88.1 Allergy status to other antibiotic agents; Z91.041 Radiographic dye allergy status; Z20.822 Contact with and (suspected) exposure to COVID-19
CPT/HCPCS: 36415; 71046; 80053; 83690; 83735; 84484; 85025; 85379; 85610; 85730; 87635; 93005; 99285

== ENCOUNTER → 2021-06-24 | Outpatient (CLI) | payer BC ==
[~2021-06-24] MED LIST changes: +REGADENOSON 0.4 MG/5 ML SYRINGE IV ONE; -REGADENOSON 0.4 MG/5 ML SYRINGE IV PRN
--- NOTE | 2021-06-24 12:26 | NM ---
EXAMINATION TYPE: NM stress lexiscan cardiolite DATE OF EXAM: 06/24/2021 COMPARISON: Prior exam 10/27/2020 HISTORY: Chest pain TECHNIQUE: After the intravenous administration of 9.4 mCi Tc 99m Sestamibi - Cardiolite resting SPE CT images acquired 45 minutes post injection. The patient received 0.4mg Lexiscan, 25 mCi Tc 99m Sestamibi - Stress images obtained 50 minutes post injection FINDINGS: Review of stress and rest SPECT images demonstrates no distinct perfusion abnormality. Gated analysi s shows normal wall motion with an estimated left ventricular ejection fraction of 63 %. IMPRESSION: No scintigraphic evidence for a pharmacologically induced left ventricular myocardial ischemia.
--- NOTE | 2021-06-24 16:59 | EST ---
EXERCISE STRESS AGE: 60 SEX: F HT: 5'6" WT: 122 lbs. PROTOCOL: Lexiscan STAGE: NA DURATION OF EXERCISE: 5 minutes HEART RATE REST: 73 BLOOD PRESSURE REST: 165/100 MAXIMUM HEART RATE ACHIEVED: 102 MAXIMUM BLOOD PRESSURE: 183/101 85% MPHR: 134 100% MPHR: 158 METS: NA INDICATIONS: Chest pain. STRESS DATA: Heart rate 73, pressure 165/100 mmHg. Baseline EKG showed sinus mechanism. Lexiscan in the amount of 0.4 mg was given over 15 seconds per protocol. Max heart rate was 102 and maximum pressure was 183/101 mmHg. Clinically the patient did not have any symptoms and the EKG did not show any significant ST or T-wave abnormalities concerning for ischemia. CONCLUSION: 1. Nondiagnostic electrocardiogram stress testing in response to Lexiscan. 2. Please follow up on the Cardiolite portion in a separate report from Radiology Department. MMODL / IJN: [id number] /
== END | disposition home or self-care (01) ==
LOC: RADNMMAIN 08:18
PROVIDERS: ATTEND Family Medicine
DX: R07.9 Chest pain, unspecified (principal)
CPT/HCPCS: 93017; 78452; A9500; J2785

== ENCOUNTER 2021-10-05 10:16 | Observation (INO) | payer BC ==
[2021-10-05] MEDS ORDERED: NITROGLYCERIN SL TABS 0.4 MG TAB SUBLINGUAL STA ×3 (14:19)
[2021-10-05] MEDS ORDERED: ASPIRIN 81 MG PO STA (14:19)
--- NOTE | 2021-10-05 14:23 | ED ---
General Adult HPI - General Chief complaint: Chest Pain Stated complaint: chest pain Time Seen by Provider: 10/05/21 14:06 Source: patient, RN notes reviewed Mode of arrival: ambulatory Limitations: no limitations - History of Present Illness Initial comments: Patient is a pleasant 61-year-old female presenting to the emergency department chest discomfort. Onset of symptoms was around 8:30 this morning. Discomfort has been somewhat waxing and waning. Patient did have some neck discomfort earlier. Discomfort is difficult to describe. Patient now is having some epigastric discomfort. No nausea vomiting. No sweating. Patient was a little bit short of breath earlier. - Related Data Home Medications Medication Instructions Recorded Confirmed Ascorbic Acid [Vitamin C] 500 mg PO DAILY 02/13/14 10/05/21 Calcium Carbonate/Vitamin D3 1 tab PO DAILY 02/13/14 10/05/21 [Caltrate 600 + D Tablet] Multivitamin/Iron/Folic Acid 1 tab PO DAILY 02/13/14 10/05/21 [Centrum Complete Multivit Tab] Naproxen Sodium [Aleve] 440 mg PO DAILY 02/13/14 10/05/21 Vitamin E (Dl,Tocopheryl Acet) 800 unit PO DAILY 02/13/14 10/05/21 [Vitamin E] Glucosamine HCl/Chondroitin Hernandez 3 cap PO DAILY 05/27/21 10/05/21 [Glucosamine-Chondroitin Cap] Loratadine 10 mg PO DAILY 05/27/21 10/05/21 Vit C/E/Zn/Coppr/Lutein/Zeaxan 2 cap PO DAILY 05/27/21 10/05/21 [Preservision Areds 2 Softgel] Cholecalciferol (Vitamin D3) 125 mcg PO DAILY 10/05/21 10/05/21 [Vitamin D3 (125 MCG = 5,000 IU)] Allergies Allergy/AdvReac Type Severity Reaction Status Date / Time bee venom protein (honey bee) Allergy Unknown Verified 10/05/21 16:06 codeine Allergy Anaphylaxis Verified 10/05/21 16:06 levofloxacin [From Levaquin] Allergy Unknown Verified 10/05/21 16:06 red dye Allergy Swelling Verified 10/05/21 16:06 of the throat chocolate Allergy Swelling Uncoded 10/05/21 16:06 of the throat nuts Allergy Unknown Uncoded 10/05/21 10:35 STEROIDS AdvReac Unknown Uncoded 10/05/21 10:35 Review of Systems ROS Statement: Those systems with pertinent positive or pertinent negative responses have been documented in the HPI. ROS Other: All systems not noted in ROS Statement are negative. Constitutional: Denies: fever Eyes: Denies: eye pain ENT: Denies: ear pain Respiratory: Denies: cough Cardiovascular: Reports: as per HPI, chest pain Endocrine: Denies: fatigue Gastrointestinal: Reports: as per HPI Genitourinary: Denies: dysuria Musculoskeletal: Reports: as per HPI Skin: Denies: rash Neurological: Denies: weakness Past Medical History Past Medical History: No Reported History Additional Past Medical History / Comment(s): racing heart History of Any Multi-Drug Resistant Organisms: None Reported Past Surgical History: Cardiac Ablation, Tubal Ligation Additional Past Surgical History / Comment(s): colonoscopy Past Psychological History: No Psychological Hx Reported Smoking Status: Current every day smoker Past Alcohol Use History: Daily Past Drug Use History: None Reported General Exam Limitations: no limitations General appearance: alert, in no apparent distress Eye exam: Present: normal appearance Neck exam: Present: normal inspection Respiratory exam: Present: normal lung sounds bilaterally. Absent: chest wall tenderness Cardiovascular Exam: Present: regular rate, normal rhythm, normal heart sounds Expanded Peripheral pulses: 2+: Radial (R), Radial (L), Posterior Tibialis (R), Posterior Tibialis (L) GI/Abdominal exam: Present: soft. Absent: tenderness Extremities exam: Present: normal inspection. Absent: pedal edema, calf tenderness Back exam: Present: normal inspection. Absent: tenderness Neurological exam: Present: alert Psychiatric exam: Present: normal affect, normal mood Skin exam: Present: normal color Course Vital Signs 10/05/21 10/05/21 10:31 14:35 Temperature 97.2 F L Pulse Rate 80 70 Respiratory 18 16 Rate Blood Pressure 166/89 172/100 O2 Sat by Pulse 92 L 93 L Oximetry EKG Findings - EKG Comments: EKG Findings:: Sinus rhythm with rate of 75. NM 163. QRS 105. QT 397. QTC 426. Right axis. Prominent T waves. Poor R-wave progression. Incomplete right bundle-branch block. No acute ST change. Medical Decision Making - Medical Decision Making Patient reevaluated and resting comfortably in bed. Patient updated on results and plan. Dr. Delacruz has been paged for admission of his patient. - Lab Data Result diagrams: 10/05/21 14:46 10/05/21 14:46 Lab Results 10/05/21 10/05/21 10/05/21 Range/Units 14:46 14:46 14:46 WBC 7.9 (3.8-10.6) k/uL RBC 4.79 (3.80-5.40) m/uL Hgb 15.6 (11.4-16.0) gm/dL Hct 47.3 H (34.0-46.0) % MCV 98.7 (80.0-100.0) fL MCH 32.5 (25.0-35.0) pg MCHC 33.0 (31.0-37.0) g/dL RDW 13.3 (11.5-15.5) % Plt Count 234 (150-450) k/uL MPV 6.7 Neutrophils % 58 % Lymphocytes % 34 % Monocytes % 5 % Eosinophils % 1 % Basophils % 0 % Neutrophils # 4.6 (1.3-7.7) k/uL Lymphocytes # 2.7 (1.0-4.8) k/uL Monocytes # 0.4 (0-1.0) k/uL Eosinophils # 0.1 (0-0.7) k/uL Basophils # 0.0 (0-0.2) k/uL PT 9.9 (9.0-12.0) sec INR 0.9 (<1.2) APTT 21.1 L (22.0-30.0) sec D-Dimer <0.17 (<0.60) mg/L FEU Sodium 138 (137-145) mmol/L Potassium 4.2 (3.5-5.1) mmol/L Chloride 104 (98-107) mmol/L Carbon Dioxide 29 (22-30) mmol/L Anion Gap 5 mmol/L BUN 25 H (7-17) mg/dL Creatinine 0.31 L (0.52-1.04) mg/dL Est GFR (CKD-EPI)AfAm >90 (>60 ml/min/1.73 sqM) Est GFR (CKD-EPI)NonAf >90 (>60 ml/min/1.73 sqM) Glucose 91 (74-99) mg/dL Calcium 9.5 (8.4-10.2) mg/dL Magnesium 1.8 (1.6-2.3) mg/dL Total Bilirubin 0.7 (0.2-1.3) mg/dL AST 24 (14-36) U/L ALT 23 (4-34) U/L Alkaline Phosphatase 43 (38-126) U/L Troponin I (0.000-0.034) ng/mL Total Protein 6.7 (6.3-8.2) g/dL Albumin 4.0 (3.5-5.0) g/dL Amylase 65 (30-110) U/L Lipase 217 (23-300) U/L 10/05/21 Range/Units 14:46 WBC (3.8-10.6) k/uL RBC (3.80-5.40) m/uL Hgb (11.4-16.0) gm/dL Hct (34.0-46.0) % MCV (80.0-100.0) fL MCH (25.0-35.0) pg MCHC (31.0-37.0) g/dL RDW (11.5-15.5) % Plt Count (150-450) k/uL MPV Neutrophils % % Lymphocytes % % Monocytes % % Eosinophils % % Basophils % % Neutrophils # (1.3-7.7) k/uL Lymphocytes # (1.0-4.8) k/uL Monocytes # (0-1.0) k/uL Eosinophils # (0-0.7) k/uL Basophils # (0-0.2) k/uL PT (9.0-12.0) sec INR (<1.2) APTT (22.0-30.0) sec D-Dimer (<0.60) mg/L FEU Sodium (137-145) mmol/L Potassium (3.5-5.1) mmol/L Chloride (98-107) mmol/L Carbon Dioxide (22-30) mmol/L Anion Gap mmol/L BUN (7-17) mg/dL Creatinine (0.52-1.04) mg/dL Est GFR (CKD-EPI)AfAm (>60 ml/min/1.73 sqM) Est GFR (CKD-EPI)NonAf (>60 ml/min/1.73 sqM) Glucose (74-99) mg/dL Calcium (8.4-10.2) mg/dL Magnesium (1.6-2.3) mg/dL Total Bilirubin (0.2-1.3) mg/dL AST (14-36) U/L ALT (4-34) U/L Alkaline Phosphatase (38-126) U/L Troponin I <0.012 (0.000-0.034) ng/mL Total Protein (6.3-8.2) g/dL Albumin (3.5-5.0) g/dL Amylase (30-110) U/L Lipase (23-300) U/L - Radiology Data Radiology results: report reviewed (Unable to view films. Abdominal x-ray reported as nonspecific abdomen. Chest x-ray reported as COPD, interstitial prominence, nodular density right upper lobe. Possible nodule.) Disposition Clinical Impression: Chest pain Disposition: ADMITTED IP TO THIS HOSP Is patient prescribed a controlled substance at d/c from ED?: No Referrals: Manny Delacruz MD [Primary Care Provider] - 1-2 days Decision Time: 16:15
[2021-10-05 15:09] LABS: Basophils % (A) 0 %; Eosinophils # (A) 0.1 k/uL (0-0.7); Eosinophils % (A) 1 %; HCT 47.3 % (34.0-46.0); HGB 15.6 gm/dL (11.4-16.0); Lymphocytes # (A) 2.7 k/uL (1.0-4.8); Lymphocytes % (A) 34 %; MCH 32.5 pg (25.0-35.0); MCV 98.7 fL (80.0-100.0); Mean Platelet Volume 6.7; Monocytes # (A) 0.4 k/uL (0-1.0); Monocytes % (A) 5 %; Neutrophils # (A) 4.6 k/uL (1.3-7.7); Neutrophils % (A) 58 %; Platelet Count 234 k/uL (150-450); RBC 4.79 m/uL (3.80-5.40); RDW 13.3 % (11.5-15.5); WBC 7.9 k/uL (3.8-10.6)
[2021-10-05 15:30] LABS: ALT 23 U/L (4-34); AST 24 U/L (14-36); African American GFR (CKD) >90 (>60 ml/min/1.73 sqM); Alkaline Phosphatase 43 U/L (38-126); Amylase 65 U/L (30-110); Anion Gap 5 mmol/L; Blood Urea Nitrogen 25 mg/dL (7-17); Calcium 9.5 mg/dL (8.4-10.2); Carbon Dioxide 29 mmol/L (22-30); Chloride 104 mmol/L (98-107); Glucose 91 mg/dL (74-99); Lipase 217 U/L (23-300); Magnesium 1.8 mg/dL (1.6-2.3); Non-African American GFR(CKD) >90 (>60 ml/min/1.73 sqM); Potassium 4.2 mmol/L (3.5-5.1); Sodium 138 mmol/L (137-145); Total Bilirubin 0.7 mg/dL (0.2-1.3); Total Protein 6.7 g/dL (6.3-8.2)
[2021-10-05 15:31] LABS: INR 0.9 (<1.2); Partial Thromboplastin Time 21.1 sec (22.0-30.0); Prothrombin Time 9.9 sec (9.0-12.0)
--- NOTE | 2021-10-05 15:51 | XR ---
EXAMINATION TYPE: XR abdomen 1V DATE OF EXAM: 10/05/2021 COMPARISON: NONE HISTORY: Pain TECHNIQUE: One view abdominal series FINDINGS: The osseous structures are intact. The bowel gas pattern is nonspecific. Lung bases are clear. Arth ropathy of the hips. Bone island overlying the left femur. Underlying COPD involving the lung bases s uspected. IMPRESSION: 1. Nonspecific abdomen.
--- NOTE | 2021-10-05 15:52 | XR ---
EXAMINATION TYPE: XR chest 2V DATE OF EXAM: 10/05/2021 COMPARISON: 05/27/2021 HISTORY: 61-year-old female with chest pain TECHNIQUE: PA and lateral views FINDINGS: Heart upper limits of normal in size. Aorta and pulmonary vasculature within normal limits. Hyperinfl ation. Possible subtle right upper lobe nodularity versus summation artifact. The latter is favored. Rounded opacity posterior base on the lateral view is unchanged. Findings most suggestive of a small Bochdalek hernia. IMPRESSION: 1. COPD. 2. Interstitial prominence may be chronic. Correlate to exclude superimposed bronchitis. 3. Nodular density right upper lobe could be summation artifact. Recommend short interval follow-up r adiograph in 4-6 weeks to reassess and exclude a suspicious pulmonary nodule.
[2021-10-05] MEDS ORDERED: NITROGLYCERIN SL TABS 0.4 MG TAB SUBLINGUAL PRN (16:16)
[2021-10-05] MEDS: NITROGLYCERIN OINT 1 INCH/GM PACKET TOPICAL SCH ×2 (20:09→23:54)
[2021-10-05] MEDS: FAMOTIDINE 20 MG TAB PO SCH (20:11)
[2021-10-06] MEDS: FAMOTIDINE 20 MG TAB PO SCH ×2 (01:06→08:44)
[2021-10-06] MEDS: NITROGLYCERIN OINT 1 INCH/GM PACKET TOPICAL SCH ×2 (05:25→06:09)
[2021-10-06 06:14] VITALS: PULSE 77; RESP 18
--- NOTE | 2021-10-06 08:18 | P.HPIM ---
History of Present Illness H&P Date: 10/06/21 Chief Complaint: Chest pressure This is a physical on a 61-year-old white female with history of tobacco abuse who stated yesterday morning that she had significant amounts of chest pressure some radiation to the jaw area and this is been occurring for the last 2-3 days but worsened yesterday morning. Underlying history of back DDD. No diaphoresis stated. Review of Systems Constitutional: Denies chills, Denies fever Eyes: denies blurred vision, denies pain Ears, nose, mouth and throat: Denies headache, Denies sore throat Cardiovascular: Reports chest pain, Denies leg edema, Denies syncope Respiratory: Denies cough, Denies sleep apnea Gastrointestinal: Reports as per HPI Genitourinary: Denies dysuria, Denies hematuria Musculoskeletal: Denies myalgias Integumentary: Denies pruritus, Denies rash Past Medical History Past Medical History: No Reported History Additional Past Medical History / Comment(s): racing heart History of Any Multi-Drug Resistant Organisms: None Reported Past Surgical History: Cardiac Ablation, Tubal Ligation Additional Past Surgical History / Comment(s): colonoscopy Past Psychological History: No Psychological Hx Reported Smoking Status: Current every day smoker Past Alcohol Use History: Daily Past Drug Use History: None Reported Medications and Allergies Home Medications Medication Instructions Recorded Confirmed Type Ascorbic Acid [Vitamin C] 500 mg PO DAILY 02/13/14 10/05/21 History Calcium Carbonate/Vitamin D3 1 tab PO DAILY 02/13/14 10/05/21 History [Caltrate 600 + D Tablet] Multivitamin/Iron/Folic Acid 1 tab PO DAILY 02/13/14 10/05/21 History [Centrum Complete Multivit Tab] Naproxen Sodium [Aleve] 440 mg PO DAILY 02/13/14 10/05/21 History Vitamin E (Dl,Tocopheryl Acet) 800 unit PO DAILY 02/13/14 10/05/21 History [Vitamin E] Glucosamine HCl/Chondroitin Hernandez 3 cap PO DAILY 05/27/21 10/05/21 History [Glucosamine-Chondroitin Cap] Loratadine 10 mg PO DAILY 05/27/21 10/05/21 History Vit C/E/Zn/Coppr/Lutein/Zeaxan 2 cap PO DAILY 05/27/21 10/05/21 History [Preservision Areds 2 Softgel] Cholecalciferol (Vitamin D3) 125 mcg PO DAILY 10/05/21 10/05/21 History [Vitamin D3 (125 MCG = 5,000 IU)] Allergies Allergy/AdvReac Type Severity Reaction Status Date / Time bee venom protein (honey bee) Allergy Unknown Verified 10/05/21 16:06 codeine Allergy Anaphylaxis Verified 10/05/21 16:06 levofloxacin [From Levaquin] Allergy Unknown Verified 10/05/21 16:06 red dye Allergy Swelling Verified 10/05/21 16:06 of the throat chocolate Allergy Swelling Uncoded 10/05/21 16:06 of the throat nuts Allergy Unknown Uncoded 10/05/21 10:35 STEROIDS AdvReac Unknown Uncoded 10/05/21 10:35 Physical Exam Vitals: Vital Signs Temp Pulse Resp BP Pulse Ox 10/06/21 06:12 77 18 137/65 94 L 10/06/21 04:18 71 16 132/77 96 10/05/21 23:54 72 18 149/96 96 10/05/21 22:00 88 26 H 137/79 97 10/05/21 21:00 98.3 F 86 24 144/90 97 10/05/21 20:00 94 20 149/96 97 10/05/21 18:32 97.7 F 72 12 149/96 95 10/05/21 14:35 70 16 172/100 93 L 10/05/21 10:31 97.2 F L 80 18 166/89 92 L - Constitutional General appearance: thin - EENT Eyes: no abnormal pupil - Neck Neck: no lymphadenopathy - Respiratory Respiratory: bilateral: CTA - Cardiovascular Rhythm: regular Heart sounds: normal: S1, S2 Abnormal Heart Sounds: no S3 Gallop - Gastrointestinal General gastrointestinal: soft, no tenderness - Musculoskeletal Musculoskeletal: gait normal - Psychiatric Psychiatric: A&O x's 3 Results CBC & Chem 7: 10/05/21 14:46 10/05/21 14:46 Labs: Abnormal Lab Results - Last 24 Hours (Table) 10/05/21 10/05/21 10/05/21 Range/Units 14:46 14:46 14:46 Hct 47.3 H (34.0-46.0) % APTT 21.1 L (22.0-30.0) sec BUN 25 H (7-17) mg/dL Creatinine 0.31 L (0.52-1.04) mg/dL Assessment and Plan (1) Tobacco abuse Current Visit: Yes Status: Acute Code(s): Z72.0 - TOBACCO USE SNOMED Code(s): 519785324 (2) Chest pain Current Visit: Yes Status: Acute Code(s): R07.9 - CHEST PAIN, UNSPECIFIED SNOMED Code(s): 38387710 Plan: Rule out myocardial infarction. Consul cardiology. Reconcile medications. She orders otherwise. The patient seems he will be stable at the time of the history and physical. See orders otherwise. Anticipate discharge if and when cleared by cardiology.
[2021-10-06 08:48] VITALS: BP 149/96; TEMP 97.6
[2021-10-06] MEDS ORDERED: ASPIRIN 325 MG TAB PO SCH (09:00)
[2021-10-06] MEDS ORDERED: ASCORBIC ACID 500 MG TAB PO SCH (09:00)
[2021-10-06] MEDS ORDERED: LORATADINE 10 MG TAB PO SCH (09:00)
[2021-10-06] MEDS ORDERED: CALCIUM CARB-VIT D 500 MG-5 MCG TAB PO SCH (09:00)
[2021-10-06] MEDS ORDERED: VITAMIN E (DL,TOCOPHERYL ACET) 400 UNIT (180 MG) CAP PO SCH (09:00)
[2021-10-06] MEDS ORDERED: MULTIVITAMINS, THERA 1 EACH TAB PO SCH (09:00)
--- NOTE | 2021-10-06 10:02 | P.CRDCN ---
History of Present Illness Consult date: 10/06/21 History of present illness: HISTORY OF PRESENT ILLNESS: This is a 61-year-old female with a past medical history significant for nicotine dependence and SVT with ablation in 2012. Patient used to follow with Dr. Moreira but has not been seen in the office since 2013. We have been asked to see the patient in consultation for chest pain. Patient examined at the bedside. Patient states she was having some chest discomfort Tuesday night and her arm felt very heavy. She states the symptoms went away but then returned Tuesday at work so she came to the hospital for further evaluation. The patient states she is under a great deal of stress right now and thinks "my nerves got the best of me". She currently denies chest pain or pressure. She did have a Lexiscan stress test and June 2021 which was negative for ischemia. EKG reveals sinus mechanism with PACs. No signs of acute ischemia Chest xray COPD. Interstitial prominence may be chronic. Correlate to exclude superimposed bronchitis. Nodular density right upper lobe could be summation artifact. Laboratory data: WBC 7.9. Hemoglobin 15.6. Platelet count 234. D-dimer 0.17. Sodium 138. Potassium 4.2. BUN 25. Creatinine 0.31. Magnesium 1.8. Troponin negative 3. Current home cardiac medications include none REVIEW OF SYSTEMS: At the time of my exam: CONSTITUTIONAL: Denies fever or chills. HEENT: Denies blurred vision, vision changes, or eye pain. Denies hemoptysis CARDIOVASCULAR: Denies chest pain. Denies orthopnea. Denies PND. Denies palpitations RESPIRATORY: Denies shortness of breath. GASTROINTESTINAL: Denies abdominal pain. Denies nausea or vomiting. HEMATOLOGIC: Denies bleeding disorders. GENITOURINARY: Denies any blood in urine. SKIN: Denies pruitis. Denies rash. PHYSICAL EXAM: VITAL SIGNS: Reviewed. GENERAL: Well-developed in no acute distress. HEENT: Head is normocephalic. Pupils are equal, round. Sclerae anicteric. Mucous membranes of the mouth are moist. Neck supple. No JVD or thyromegaly LUNGS: Respirations even and unlabored. Lungs essentially clear to auscultation bilaterally. HEART: Regular rate and rhythm. S1 and S2 heard. ABDOMEN: Soft. Nondistended. Nontender. EXTREMITIES: Normal range of motion. No clubbing or cyanosis. Peripheral pulses intact. No lower extremity edema NEUROLOGIC: Awake and alert. Oriented x 3. ASSESSMENT: Chest pain, atypical, with recent negative stress test in June 2021 History of SVT with previous ablation, 2012 Nicotine dependence PLAN: An acute coronary event has been ruled out Smoking cessation recommended For further cardiac workup at this time Patient may be discharged home from a cardiac standpoint and follow up on an outpatient basis. Nurse practitioner note has been reviewed by physician. Signing provider agrees with the documented findings, assessment, and plan of care. Past Medical History Past Medical History: Chest Pain / Angina, Thyroid Disorder Additional Past Medical History / Comment(s): Racing heart, bronchitis, sinus problems, thyroid nodules-benign, occasional lower back pain, anemia with History of Any Multi-Drug Resistant Organisms: None Reported Past Surgical History: Cardiac Ablation, Orthopedic Surgery, Tubal Ligation Additional Past Surgical History / Comment(s): Cardiac ablation/pt cannot recall reason/type of arrhythmia, L foot fracture/pinned, colonoscopies. Past Anesthesia/Blood Transfusion Reactions: No Reported Reaction Smoking Status: Current every day smoker - Past Family History Father Additional Family Medical History / Comment(s): Father is from an enlarged heart/iglesias's lung. Mother Family Medical History: No Reported History Medications and Allergies Home Medications Medication Instructions Recorded Confirmed Type Ascorbic Acid [Vitamin C] 500 mg PO DAILY 02/13/14 10/05/21 History Calcium Carbonate/Vitamin D3 1 tab PO DAILY 02/13/14 10/05/21 History [Caltrate 600 + D Tablet] Multivitamin/Iron/Folic Acid 1 tab PO DAILY 02/13/14 10/05/21 History [Centrum Complete Multivit Tab] Naproxen Sodium [Aleve] 440 mg PO DAILY 02/13/14 10/05/21 History Vitamin E (Dl,Tocopheryl Acet) 800 unit PO DAILY 02/13/14 10/05/21 History [Vitamin E] Glucosamine HCl/Chondroitin Hernandez 3 cap PO DAILY 05/27/21 10/05/21 History [Glucosamine-Chondroitin Cap] Loratadine 10 mg PO DAILY 05/27/21 10/05/21 History Vit C/E/Zn/Coppr/Lutein/Zeaxan 2 cap PO DAILY 05/27/21 10/05/21 History [Preservision Areds 2 Softgel] Cholecalciferol (Vitamin D3) 125 mcg PO DAILY 10/05/21 10/05/21 History [Vitamin D3 (125 MCG = 5,000 IU)] Allergies Allergy/AdvReac Type Severity Reaction Status Date / Time bee venom protein (honey bee) Allergy Unknown Verified 10/05/21 16:06 codeine Allergy Anaphylaxis Verified 10/05/21 16:06 levofloxacin [From Levaquin] Allergy Unknown Verified 10/05/21 16:06 red dye Allergy Swelling Verified 10/05/21 16:06 of the throat chocolate Allergy Swelling Uncoded 10/05/21 16:06 of the throat nuts Allergy Unknown Uncoded 10/05/21 10:35 STEROIDS AdvReac Unknown Uncoded 10/05/21 10:35 Physical Exam Vitals: Vital Signs Temp Pulse Pulse Resp BP BP Pulse Ox 10/06/21 07:00 97.6 F 77 18 149/96 96 10/06/21 06:12 77 18 137/65 94 L 10/06/21 04:18 71 16 132/77 96 10/05/21 23:54 72 18 149/96 96 10/05/21 22:00 88 26 H 137/79 97 10/05/21 21:00 98.3 F 86 24 144/90 97 10/05/21 20:00 94 20 149/96 97 10/05/21 18:32 97.7 F 72 12 149/96 95 10/05/21 14:35 70 16 172/100 93 L 10/05/21 10:31 97.2 F L 80 18 166/89 92 L Intake and Output 10/05/21 10/06/21 10/06/21 22:59 06:59 14:59 Other: # Voids 1 Weight 54.431 kg Results 10/05/21 14:46 10/05/21 14:46 Cardiac Enzymes 10/05/21 10/05/21 10/05/21 Range/Units 14:46 14:46 17:31 AST 24 (14-36) U/L Troponin I <0.012 <0.012 (0.000-0.034) ng/mL 10/05/21 Range/Units 21:14 AST (14-36) U/L Troponin I 0.012 (0.000-0.034) ng/mL Coagulation 10/05/21 Range/Units 14:46 PT 9.9 (9.0-12.0) sec APTT 21.1 L (22.0-30.0) sec CBC 10/05/21 Range/Units 14:46 WBC 7.9 (3.8-10.6) k/uL RBC 4.79 (3.80-5.40) m/uL Hgb 15.6 (11.4-16.0) gm/dL Hct 47.3 H (34.0-46.0) % Plt Count 234 (150-450) k/uL Comprehensive Metabolic Panel 10/05/21 Range/Units 14:46 Sodium 138 (137-145) mmol/L Potassium 4.2 (3.5-5.1) mmol/L Chloride 104 (98-107) mmol/L Carbon Dioxide 29 (22-30) mmol/L BUN 25 H (7-17) mg/dL Creatinine 0.31 L (0.52-1.04) mg/dL Glucose 91 (74-99) mg/dL Calcium 9.5 (8.4-10.2) mg/dL AST 24 (14-36) U/L ALT 23 (4-34) U/L Alkaline Phosphatase 43 (38-126) U/L Total Protein 6.7 (6.3-8.2) g/dL Albumin 4.0 (3.5-5.0) g/dL Current Medications Generic Name Dose Route Start Last Admin Trade Name Freq PRN Reason Stop Dose Admin Ascorbic Acid 500 mg 10/06/21 09:00 10/06/21 08:43 Ascorbic Acid 500 Mg Tab PO 500 mg DAILY EVELYN Administration Aspirin 325 mg 10/06/21 09:00 10/06/21 08:42 Aspirin 325 Mg Tab PO 325 mg DAILY [facility] Administration Calcium Carbonate 1 each 10/06/21 09:00 10/06/21 08:43 Calcium Carb-Vit D 500 Mg-5 Mcg Tab PO 1 each DAILY EVELYN Administration Famotidine 20 mg 10/05/21 21:00 10/06/21 08:44 Famotidine 20 Mg Tab PO Not Given BID EVELYN Loratadine 10 mg 10/06/21 09:00 10/06/21 08:44 Loratadine 10 Mg Tab PO 10 mg DAILY EVELYN Administration Multivitamins 1 each 10/06/21 09:00 10/06/21 08:43 Multivitamins, Thera 1 Each Tab PO 1 each DAILY EVELYN Administration Nitroglycerin 0.4 mg 10/05/21 16:16 Nitroglycerin Sl Tabs 0.4 Mg Tab SUBLINGUAL Q5M PRN Chest Pain Nitroglycerin 1 inch 10/05/21 18:00 10/06/21 06:09 Nitroglycerin Oint 1 Inch/Gm Packet TOPICAL Not Given Q6HR EVELYN Sodium Chloride 10 ml 10/05/21 21:00 10/06/21 08:44 Sodium Chloride 0.9% Flush 10 Ml Syringe IV 10 ml BID EVELYN Administration Vitamin E 800 unit 10/06/21 09:00 10/06/21 09:44 Vitamin E (Dl,Tocopheryl Acet) 400 Unit (180 Mg) Cap PO Not Given DAILY EVELYN Intake and Output 10/05/21 10/06/21 10/06/21 22:59 06:59 14:59 Other: # Voids 1 Weight 54.431 kg Patient Weight 10/07/21 06:59 Weight 54.431 kg 10/05/21 14:46 10/05/21 14:46
[2021-10-06 11:20] LABS: Chol/HDL Ratio 1.96 Ratio; VLDL Calculation 10.28 mg/dL (5.00-40.00)
--- NOTE | 2021-10-06 12:27 | P.DS ---
Providers Date of admission: 10/05/21 16:16 Attending physician: Manny Delacruz Primary care physician: Manny Delacruz - Discharge Diagnosis(es) (1) Tobacco abuse Current Visit: Yes Status: Acute (2) Chest pain Current Visit: Yes Status: Acute Hospital Course: This is discharge summary 61-year-old white female with known history of tobacco abuse who came in with significant chest pressure. Stress testing was done several months ago which is nominal. Acute coronary syndrome was diagnosed an acute event was ruled out. Cardiology has now cleared the patient and she is not having any significant new chest pressure. Enzymatic elevation was not noted and she is discharged in stable condition. Plan - Discharge Summary Discharge Rx Participant: No New Discharge Prescriptions: Continue Vitamin E (Dl,Tocopheryl Acet) [Vitamin E (400 Iu = 180 mg)] 800 unit PO DAILY Naproxen Sodium [Aleve] 440 mg PO DAILY Multivitamin/Iron/Folic Acid [Centrum Complete Multivit Tab] 1 tab PO DAILY Calcium Carbonate/Vitamin D3 [Caltrate 600 Plus D3 Tablet] 1 tab PO DAILY Ascorbic Acid [Vitamin C] 500 mg PO DAILY Glucosamine HCl/Chondroitin Hernandez [Glucosamine-Chondroitin Cap] 3 cap PO DAILY Vit C/E/Zn/Coppr/Lutein/Zeaxan [Preservision Areds 2 Softgel] 2 cap PO DAILY Loratadine 10 mg PO DAILY Cholecalciferol (Vitamin D3) [Vitamin D3 (125 MCG = 5,000 IU)] 125 mcg PO DAILY Discharge Medication List Ascorbic Acid [Vitamin C] 500 mg PO DAILY 02/13/14 [History] Calcium Carbonate/Vitamin D3 [Caltrate 600 Plus D3 Tablet] 1 tab PO DAILY 02/13/14 [History] Multivitamin/Iron/Folic Acid [Centrum Complete Multivit Tab] 1 tab PO DAILY 02/13/14 [History] Naproxen Sodium [Aleve] 440 mg PO DAILY 02/13/14 [History] Vitamin E (Dl,Tocopheryl Acet) [Vitamin E (400 Iu = 180 mg)] 800 unit PO DAILY 02/13/14 [History] Glucosamine HCl/Chondroitin Hernandez [Glucosamine-Chondroitin Cap] 3 cap PO DAILY 05/27/21 [History] Loratadine 10 mg PO DAILY 05/27/21 [History] Vit C/E/Zn/Coppr/Lutein/Zeaxan [Preservision Areds 2 Softgel] 2 cap PO DAILY 05/27/21 [History] Cholecalciferol (Vitamin D3) [Vitamin D3 (125 MCG = 5,000 IU)] 125 mcg PO DAILY 10/05/21 [History] Follow up Appointment(s)/Referral(s): Chloe Liu MD [STAFF PHYSICIAN] - 2 Weeks Manny Delacruz MD [Primary Care Provider] - 1-2 days Patient Instructions/Handouts: How to Stop Smoking (DC)
== END 2021-10-06 13:15 | disposition home or self-care (01) ==
LOC: EC 10:16 → 1SOBS 16:16 → 6NMEDSUR 10-06 01:19
PROVIDERS: ADMIT Family Medicine; ATTEND Family Medicine
DX: R07.89 Other chest pain (principal); F17.200 Nicotine dependence, unspecified, uncomplicated; Z20.822 Contact with and (suspected) exposure to COVID-19; E04.2 Nontoxic multinodular goiter; I47.1 Supraventricular tachycardia; I45.19 Other right bundle-branch block; M54.50 Low back pain, unspecified; R06.02 Shortness of breath; Z88.1 Allergy status to other antibiotic agents; Z88.6 Allergy status to analgesic agent; Z88.5 Allergy status to narcotic agent; Z91.018 Allergy to other foods; Z91.010 Allergy to peanuts; Z91.030 Bee allergy status; Z71.6 Tobacco abuse counseling; Z91.02 Food additives allergy status; Z98.51 Tubal ligation status; Z82.49 Family history of ischemic heart disease and other diseases of the circulatory system
CPT/HCPCS: 99285; 36415; 93005; 85379; 80061; 80053; 82150; 83690; 83735; 84484; 85025; 85610; 85730; 87635; 71046; 74018; G0378 ×2

== ENCOUNTER → 2022-02-15 | Outpatient (CLI) | payer BC ==
--- NOTE | 2022-02-15 09:01 | CT ---
"EXAMINATION TYPE: CT chest w con DATE OF EXAM: 02/15/2022 COMPARISON: CT dated 10/03/2015 HISTORY: COPD, enlarged lymph nodes CT DLP: 129.5 mGycm Automated exposure control for dose reduction was used. TECHNIQUE: CT scan of the chest is performed with IV Contrast, patient injected with 70 mL of Isovue 300. FINDINGS: LUNGS: COPD changes, mainly centrilobular emphysematous changes and seen mainly in the upper lung lob es. An irregular lesion with spiculated margin measuring 14 mm in the right upper lobe (image #[id number], se debby 4). On retrospect review of 2016 CT scan, it was hardly appreciated and measured about 4 mm. 5 m m subtle groundglass opacity seen in the left lung apex, stable. Elongated 7 mm nodule is seen at the posterior aspect of the right lung base, not well appreciated previously, attention on follow-up. Ch ronic atelectasis/scarring seen in the middle lobe with traction bronchiectasis. Smaller atelectasis/ scarring seen at the anterior aspect of the right upper lobe as well as in the lingula. Patent trache a and main bronchi. No pleural effusion. MEDIASTINUM: Cardiomegaly. Dilated pulmonary trunk measuring 3.3 cm suggestive of pulmonary hypertens ion. Scattered arterial atherosclerotic calcifications. No pericardial effusion. Scattered subcentime ter bilateral hilar, mediastinal and axillary lymph nodes. No pathologically enlarged lymph nodes in the chest. OTHER: Left upper pole renal cyst without suspicious feature. Suspected right extrarenal pelvis. No gross aggressive bone lesion. IMPRESSION: Suspicious spiculated lesion in the right upper lung lobe as detailed above, for further PET scan ass essment as lung cancer cannot be excluded. Scattered subcentimeter bilateral axillary, hilar and mediastinal lymph nodes. No pathologically enla rged lymph nodes in the chest. Other findings as described above. A [place] level critical message alert has been initiated for Waylon Wells DO via the [employer] 36 0 | Critical Results System on 02/15/2022 8:59 AM. This message alert has been sent to Waylon Wells DO via the preferences provided by the clinician for the receipt of Radiology Critical Findings. [facility] ID [id number]."
== END | disposition home or self-care (01) ==
LOC: RADCTMAIN 07:37
PROVIDERS: ATTEND Internal Medicine Critical Care Medicine
DX: R59.0 Localized enlarged lymph nodes (principal)
CPT/HCPCS: 71260; Q9967

== ENCOUNTER → 2022-03-05 | Outpatient (CLI) | payer BC ==
--- NOTE | 2022-03-05 15:24 | PE ---
EXAMINATION TYPE: PET CT fusion skull to thigh DATE OF EXAM: 03/05/2022 COMPARISON: Prior chest CT February 15, [address] HISTORY: Abnormal CT. TECHNIQUE: Following the intravenous administration of 12.0 mCi of F-18 FDG, whole body images are p erformed from the skull base to the midthigh. Images are reviewed on the computer in the coronal, ax ial, and sagittal planes. Reconstructed rotating images are created on independent workstation and r eviewed on the computer. A localization and attenuation correction CT is performed in conjunction w ith the PET scan. Blood glucose level was 100 SCAN: Initial Scan FINDINGS: SKULL BASE AND NECK: No areas of abnormal hypermetabolic uptake. CHEST, MEDIASTINUM, AND HILAR REGION: Background moderate underlying emphysematous change is redemons trated. Persistent 2 small adjacent nodules or bilobed nodule measuring in total 1.2 x 0.7 cm axial i mage 69 grossly stable from prior study but appears ametabolic. This is new from 2016 CT though radha ivey concerning. No areas of abnormal hypermetabolic uptake in the lower axis. ABDOMEN AND PELVIS: Normal excretion. No adrenal masses. No areas of abnormal hypermetabolic uptake. OSSEOUS STRUCTURES: No areas of abnormal hypermetabolic uptake. OTHER CT: There are prominent pulmonary arteries consistent with underlying pulmonary artery hyperten adolfo redemonstrated. Mild cardiomegaly again seen. Gallbladder has distended margins. Patient has little intra-abdominal fat. Calcification in the uteru s could reflect small calcified fibroid. IMPRESSION: No abnormal hypermetabolic uptake to correspond to the new small right upper lobe nodule to definitively suggest neoplasm but is still concerning in high risk patient. At minimum short-term CT and/or PET/CT in 3-6 months time is advised to reassess. Consider cardiothoracic surgical referral or evaluation.
== END | disposition home or self-care (01) ==
LOC: RADXRMAIN 07:33
PROVIDERS: ATTEND Internal Medicine
DX: R91.1 Solitary pulmonary nodule (principal)
CPT/HCPCS: 78815; A9552

== ENCOUNTER → 2022-06-19 | Outpatient (CLI) | payer BC ==
--- NOTE | 2022-06-20 10:52 | CT ---
EXAMINATION TYPE: CT abdomen pelvis wo con DATE OF EXAM: 06/19/2022 COMPARISON: PET/CT 03/05/2022 INDICATION: RLQ pain x1wk DLP: 324 mGycm, Automated exposure control for dose reduction was used. CONTRAST: 0 mL of Isovue 300. Study performed without Oral Contrast TECHNIQUE: Axial images were obtained from above the diaphragm to the pubic rami in the axial plane a t 5 mm thick sections. Reconstructed images are reviewed on the computer in the coronal plane. FINDINGS: Limited CT sections are obtained the lung bases. The lung bases are clear. CT ABDOMEN: There may be some diffuse periaortic and retrocaval adenopathy present. Intravenous Contr ast CT abdomen pelvis may help delineate the suspected adenopathy better. This may be a change from t he comparison localization CT of 03/05/2022. Differential diagnosis could include retroperitoneal fibr osis. Liver: Enlarged measuring 21.9 cm in craniocaudal dimension. Spleen: Normal Pancreas: Normal Adrenal glands: The adrenal glands are normal. Gallbladder: Normal Kidneys: No masses are evident. No hydronephrosis is present. Cyst is suspected at the superior med ial pole left kidney. Delayed images were obtained through the kidneys, which remain unremarkable. Aorta: Vascular calcification is within the aorta. Inferior vena cava: Normal. CT PELVIS: Loops of bowel within the abdomen and pelvis are normal. The study is performed without oral cont rast limiting bowel evaluation. Appendix: Normal as visualized. Urinary bladder: Normal. Genitourinary structures: Osseous structures: No suspicious lytic or sclerotic lesions. IMPRESSIONS: 1. There is increased density making evaluation of the aorta and inferior vena cava difficulty. Lymp hadenopathy should be considered. Retroperitoneal fibrosis could be within the differential. Intraven ous contrast CT may be useful for better delineation.
== END | disposition home or self-care (01) ==
LOC: RADCTMAIN 07:50
PROVIDERS: ATTEND Family Medicine
DX: N13.5 Crossing vessel and stricture of ureter without hydronephrosis (principal); R59.0 Localized enlarged lymph nodes
CPT/HCPCS: 74176

== ENCOUNTER → 2022-07-02 | Outpatient (CLI) | payer BC ==
--- NOTE | 2022-07-02 14:54 | CT ---
EXAMINATION TYPE: CT chest w con DATE OF EXAM: 07/02/2022 COMPARISON: 02/15/2022 HISTORY: Follow up for lung nodule. CT DLP: 301 mGycm, Automated exposure control for dose reduction was used. CONTRAST: Performed injected with 100ml mL of Isovue 300. TECHNIQUE: Axial images were obtained at 5 mm thick sections. Reconstructed images are reviewed on [employer] computer in the coronal plane. FINDINGS: Portion of the thyroid visualized is normal. There is a 0.4 cm nodule within the right middle lobe anterior portion right lung base. This was pres ent previously. Some nodularity is within the right upper lung field measuring 0.5 and 0.7 cm in size. Series 4 image 18. This appears to be present previously. There is a 0.6 cm low-density area within the periphery of the left upper lung field present previous ly and stable. No enlarged mediastinal or hilar adenopathy is evident. The ascending aorta diameter at the level o f the main pulmonary artery is 3.0 cm. The main pulmonary artery diameter at the bifurcation is 3.[address] sections are obtained through the upper abdomen. Abdomen is essentially unremarkable. IMPRESSIONS: 1. Scattered densities within the bilateral lung harrison discussed above. Findings appear stable from the comparison follow-up exam in 6 months is recommended. This should be confirmed as stable over the course of 2 years.
== END | disposition home or self-care (01) ==
LOC: RADCTMAIN 12:52
PROVIDERS: ATTEND Internal Medicine
DX: J98.4 Other disorders of lung (principal)
CPT/HCPCS: 71260; Q9967

== ENCOUNTER → 2022-07-21 | Outpatient (CLI) | payer BC ==
--- NOTE | 2022-07-21 12:31 | MM ---
Reason for Exam: Screening (asymptomatic). Last mammogram was performed 1 year(s) and 2 month(s) ago. Patient History: Menarche at age 9. First Full-Term at age 17. Postmenopausal. Risk Values: Suly 5 year model risk: 1.2%. NCI Lifetime model risk: 5.3%. Prior Study Comparison: 02/15/2018 Bilateral Screening Mammogram, [facility]. 04/30/2019 Bilateral Screening Mammogram, [facility]. 05/20/2021 Bilateral Screening Mammogram, [facility]. Tissue Density: The breast tissue is heterogeneously dense. This may lower the sensitivity of mammography. Findings: Analyzed By CAD. There is no suspicious group of microcalcifications or new suspicious mass in either breast. Overall Assessment: Benign, BI-RAD 2 Management: Screening Mammogram of both breasts in 1 year. A clinical breast exam by your physician is recommended on an annual basis and results should be correlated with mammographic findings. Electronically signed and approved by: Anil Fish M.D. Radiologis
--- NOTE | 2022-07-26 13:12 | BD ---
EXAMINATION TYPE: Axial Bone Density DATE OF EXAM: 07/21/2022 COMPARISON: 10.11.2008 CLINICAL HISTORY: 61 years year old Female. ICD-10 CODE: Z78.0 Post menopausal w/o HRT Height: 65 Weight: 140 FRAX RISK QUESTIONS: Glucocorticoids (More than 3mos): YES (Ex: prednisone, prednisolone, methylprednisolone, dexamethasone, and hydrocortisone). 3. Menopause before 45: AT 43 Current Tobacco Use: YES, STOPPED JAN 05 2022 RISK FACTORS HISTORY OF: Active: YES Postmenopausal woman: YES AT AGE 43 Lost more than 2 inches in height since high school: YES Hyperparathyroidism: NO Adrenal Insufficiency: NO MEDICATIONS: Prednisone or other steroids: YES, FOR COPD FOR ABOUT DECEMBER 2021 Additional Medications: ONLY OTC MEDS AND SUPPLEMENTS, VIT D, CALCIUM Additional History: INHALER FOR COPD, EXAM MEASUREMENTS: Bone mineral densitometry was performed using the [employer] System. Bone mineral density as measured about the Lumbar spine is: ----- L1-L4(G/cm2): 1.189 T Score Values are as follows: ----- L1: -1.8 ----- L2: -0.6 ----- L3: 0.8 ----- L4: 1.4 ----- L1-L4: 0.1 Bone mineral density has: Decreased -0.3% since study of: 10.11.2008 Bone mineral density about the R hip (g/cm2): 0.838 Bone mineral density about the L hip (g/cm2): 0.853 T Score values are as follows: -----R Neck: -1.2 -----L Neck: -1.2 -----R Total: -1.3 -----L Total: -1.2 Bone mineral density has: Decreased -14.00% since study of: 10.11.2008 FRAX%s: The graph provided illustrates a 6.1% chance for a major osteoporotic fx and a 1.7% chance fo r the hips probability for fx in 10 years time. IMPRESSION: Osteopenia (T Score between -2.5 and -1). There is slightly increased risk of fracture and the patient may be considered for treatment. Re-Screen 2-5 years. NOTE: T-SCORE=SD OF THE YOUNG ADULT MEAN.
== END | disposition home or self-care (01) ==
LOC: RADMAMWWP 07:38
PROVIDERS: ATTEND Obstetrics & Gynecology
DX: Z12.31 Encounter for screening mammogram for malignant neoplasm of breast (principal); M85.89 Other specified disorders of bone density and structure, multiple sites; Z78.0 Asymptomatic menopausal state; Z79.52 Long term (current) use of systemic steroids
CPT/HCPCS: 77063; 77067; 77080

== ENCOUNTER → 2023-02-03 | Outpatient (CLI) | payer BC ==
--- NOTE | 2023-02-03 11:21 | CT ---
EXAMINATION TYPE: CT chest w con CT DLP: 195.20 mGycm, Automated exposure control for dose reduction was used. DATE OF EXAM: 02/03/2023 10:55 AM COMPARISON: CT chest 07/02/2022, 02/15/2022, 10/03/2015, PET/CT 03/05/2022. CLINICAL INDICATION:Female, 62 years old with history of R91.1 SOLITARY PUL NODULE; PHH, Solitary pul monary nodule TECHNIQUE: Multiple axial images were obtained through the chest following the administration of 100 cc of Isovue 300. . Coronal and sagittal reformats reviewed. FINDINGS: LUNGS/ PLEURA: No pleural effusion, pneumothorax, or focal consolidation. Mild centrilobular emphysem atous changes. Stable right upper lobe lobulated nodule measuring 1.6 x 0.7 cm most recent exam. How ever this has increased in size when compared to prior examination in 2016. No new pulmonary nodules. Stable 5 mm groundglass density within the left lung apex (series 4, image 11). Chronic scarring wit hin the right middle lobe. AIRWAY: Patent and unremarkable.. HEART: Size within normal limits. No pericardial effusion. MEDIASTINUM: No gross evidence of adenopathy. VASCULATURE: No aortic aneurysm. Dilatation the main pulmonary artery again which can be seen in the setting of pulmonary arterial hypertension. MUSCULOSKELETAL: No acute osseous abnormalities. No aggressive osseous lesions. SOFT TISSUES/LYMPH NODES: Unremarkable. LOWER NECK: No significant findings. UPPER ABDOMEN: Bilateral extrarenal pelvises with left renal cyst measuring up to 1 cm. IMPRESSION: 1. Stable nodular density within the right upper lobe from most recent CT exam. This has grown in siz e from prior CT exam on 10/03/2015. This was not FDG avid on prior PET/CT. This nodule still remains s uspicious. Continued follow-up is recommended. 2. Additional stable 5 mm groundglass nodule within the left upper lobe. Attention on follow-up exams .
== END | disposition home or self-care (01) ==
LOC: RADCTMAIN 09:04
PROVIDERS: ATTEND Internal Medicine
DX: J98.4 Other disorders of lung (principal); R91.1 Solitary pulmonary nodule
CPT/HCPCS: 71260; Q9967

== ENCOUNTER → 2023-02-03 | Outpatient (CLI) | payer BC ==
--- NOTE | 2023-02-03 11:11 | CT ---
EXAMINATION TYPE: CT pelvis w con CT DLP: 637.50 mGycm, Automated exposure control for dose reduction was used. DATE OF EXAM: 02/03/2023 10:56 AM COMPARISON: CT abdomen pelvis 06/19/2022, PET CT 03/05/2022 CLINICAL INDICATION:Female, 62 years old with history of R59.0 LOCALIZED ENLARGED LYMPH NODES; Locali zed enlarged lymph nodes, pelvic mass TECHNIQUE: Standard CT of the pelvis following the administration of 100 cc of Isovue [address] material and oral contrast. Coronal and sagittal reformats were performed. FINDINGS: LIVER: Visualized portion of the liver is unremarkable. Likely Reidel lobe. GALLBLADDER AND BILE DUCTS: Visualized portions unremarkable. PANCREAS: Visualized portions unremarkable. SPLEEN: Portions unremarkable. ADRENAL GLANDS: Unremarkable. KIDNEYS AND URETERS: No evidence of hydronephrosis or renal calculus. The visualized portions of the kidneys enhance symmetrically. Bilateral extrarenal pelvises identified. BLADDER: Unremarkable REPRODUCTIVE: Unremarkable. BOWEL: No focal wall thickening or surrounding inflammatory changes. Enteric contrast reaches the asc ending colon. The appendix is within normal limits. No evidence of bowel obstruction. PERITONEUM: No evidence of pneumoperitoneum or free fluid. VASCULATURE: No visualized aortic aneurysm. Mild atelectatic calcification of the visualized abdomina l aorta and its branches. MUSCULOSKELETAL: No acute osseous abnormalities. Mild disc degeneration changes are present throughou t the thoracolumbar spine. Grade 1 anterolisthesis of L5 on S1 without evidence of pars defects. No a ggressive osseous lesion. LYMPH NODES: A few nonenlarged retroperitoneal lymph nodes identified in the periaortic/retrocaval re gion measuring up to 8 mm short axis. SOFT TISSUE/ABDOMINAL WALL: Unremarkable IMPRESSION: Few nonenlarged benign-appearing retroperitoneal lymph nodes identified.
== END | disposition home or self-care (01) ==
LOC: RADCTMAIN 09:08
PROVIDERS: ATTEND Family Medicine
DX: R19.09 Other intra-abdominal and pelvic swelling, mass and lump (principal); R59.0 Localized enlarged lymph nodes
CPT/HCPCS: 72193; Q9967

== ENCOUNTER 2023-05-21 03:23 | Emergency (ER) | payer BC ==
[2023-05-21 03:45] VITALS: RESP 18
[2023-05-21] MEDS ORDERED: KETOROLAC 15 MG/ML 1 ML VIAL IVP STA (05:00)
[2023-05-21 05:44] LABS: Basophils % (A) 0 %; Eosinophils # (A) 0.1 k/uL (0-0.7); Eosinophils % (A) 2 %; HCT 41.8 % (34.0-46.0); Lymphocytes # (A) 2.7 k/uL (1.0-4.8); Lymphocytes % (A) 34 %; MCH 31.1 pg (25.0-35.0); MCHC 33.4 g/dL (31.0-37.0); MCV 92.9 fL (80.0-100.0); Mean Platelet Volume 6.8; Monocytes # (A) 0.4 k/uL (0-1.0); Monocytes % (A) 5 %; Neutrophils # (A) 4.4 k/uL (1.3-7.7); Neutrophils % (A) 56 %; Platelet Count 217 k/uL (150-450); RDW 12.7 % (11.5-15.5); WBC 7.8 k/uL (3.8-10.6)
[2023-05-21 05:59] LABS: Appearance,Urine Cloudy (Clear); Bilirubin,Urine Negative (Negative); Blood,Urine Trace (Negative); Color,Urine Yellow; Glucose,Urine (UA) Negative (Negative); Ketones,Urine Negative (Negative); Leukocyte Esterase,Urine Moderate (Negative); Mucus,Urine Occasional /hpf; Nitrite,Urine Negative (Negative); Protein,Urine 1+ (Negative); RBC,Urine 1 /hpf (0-5); Squamous Epithelial Cell,Urine 1 /hpf (0-4); Urobilinogen,Urine <2.0 mg/dL (<2.0); WBC,Urine 8 /hpf (0-5)
[2023-05-21 06:03] LABS: ALT 21 U/L (4-34); AST 22 U/L (14-36); African American GFR (CKD) >90 (>60 ml/min/1.73 sqM); Albumin 4.6 g/dL (3.5-5.0); Alkaline Phosphatase 46 U/L (38-126); Amylase 46 U/L (30-110); Anion Gap 8 mmol/L; Blood Urea Nitrogen 17 mg/dL (7-17); Calcium 9.9 mg/dL (8.4-10.2); Carbon Dioxide 29 mmol/L (22-30); Chloride 100 mmol/L (98-107); Glucose 114 mg/dL (74-99); Lipase 99 U/L (23-300); Non-African American GFR(CKD) >90 (>60 ml/min/1.73 sqM); Potassium 4.4 mmol/L (3.5-5.1); Sodium 137 mmol/L (137-145); Total Bilirubin 0.8 mg/dL (0.2-1.3); Total Protein 8.3 g/dL (6.3-8.2)
[2023-05-21 06:23] VITALS: BP 134/82; PULSE 65; TEMP 98.4
--- NOTE | 2023-05-21 07:22 | CT ---
EXAMINATION TYPE: CT abdomen pelvis w con DATE OF EXAM: 05/21/2023 COMPARISON: 09/19/2021 HISTORY: Right lower quadrant pain TECHNIQUE: Helical acquisition of images was performed from the lung bases through the pelvis. CONTRAST: Nonionic IV contrast. FINDINGS: The visualized lung bases are clear. The gallbladder is normal and there is no distention, wall thickening, gallstones or pericholecystic fluid. There is no biliary ductal dilatation. There is no focal mass or organomegaly involving the liver, pancreas, spleen or adrenal glands. There is no hydronephrosis or solid renal mass. The caliber the abdominal aorta is normal is no retroperitoneal adenopathy or hemorrhage. The bowel loops are normal in caliber and there is no bowel obstruction. There is no free intraperito chemo air or fluid. There is no inflammatory change in the bowel wall or mesentery. There is no pelvic mass, free fluid, abscess or adenopathy. The osseous structures are intact. IMPRESSION: No significant abnormality seen.
--- NOTE | 2023-05-21 07:36 | ED ---
Abdominal Pain HPI - General Chief Complaint: Abdominal Pain Stated Complaint: Groin Pain Time Seen by Provider: 05/21/23 04:16 Source: patient Mode of arrival: ambulatory Limitations: no limitations - History of Present Illness Initial Comments: This patient is 62-year-old woman who presents to have evaluation of right lower abdominal pain. She states she is concerned about a hernia. She had been doing some work around the house, but did not notice 1 particular episode that brought the pain on. Patient notes that she has had a little bit of nausea for the past few days, no vomiting. No fever or chills. No change in relation or bowel movements. MD Complaint: abdominal pain Onset/Timin -: days(s) Location: RLQ Radiation: none Migration to: no migration Severity: moderate Quality: dull Consistency: constant Improves With: nothing Worsens With: movement Associated Symptoms: nausea - Related Data Home Medications Medication Instructions Recorded Confirmed Albuterol Inhaler [Ventolin Hfa 2 puff INHALATION RT-Q4H PRN 01/07/22 01/07/22 Inhaler] Previous Rx's Medication Instructions Recorded Azithromycin [Zithromax] 500 mg PO DAILY 3 Days #3 tab 01/08/22 Budesonide/Formoterol Fumarate 1 puff INHALATION BID #10.2 gm 01/08/22 [Symbicort 80-4.5 Mcg Inhaler] Pantoprazole [Protonix] 40 mg PO AC-BRKFST 14 Days #14 tab 01/08/22 predniSONE 0 mg PO DIRECTED 12 Days #30 tab 01/08/22 Allergies Allergy/AdvReac Type Severity Reaction Status Date / Time bee venom protein (honey bee) Allergy Unknown Verified 01/07/22 07:24 codeine Allergy Anaphylaxis Verified 01/07/22 07:24 levofloxacin [From Levaquin] Allergy Unknown Verified 01/07/22 07:24 red dye Allergy Swelling Verified 01/07/22 07:24 of the throat chocolate Allergy Swelling Uncoded 10/05/21 16:06 of the throat nuts Allergy Unknown Uncoded 10/05/21 10:35 STEROIDS AdvReac Unknown Uncoded 10/05/21 10:35 Review of Systems ROS Statement: Those systems with pertinent positive or pertinent negative responses have been documented in the HPI. ROS Other: All systems not noted in ROS Statement are negative. Constitutional: Denies: fever, chills Respiratory: Denies: cough, dyspnea Cardiovascular: Denies: chest pain, palpitations, edema Gastrointestinal: Reports: abdominal pain, nausea. Denies: vomiting, diarrhea, constipation, melena, hematochezia Genitourinary: Denies: dysuria, hematuria Musculoskeletal: Denies: back pain Skin: Denies: rash Neurological: Denies: headache, weakness Past Medical History Past Medical History: Chest Pain / Angina, Thyroid Disorder Additional Past Medical History / Comment(s): Racing heart, bronchitis, sinus problems, thyroid nodules-benign, occasional lower back pain, anemia with History of Any Multi-Drug Resistant Organisms: None Reported Past Surgical History: Cardiac Ablation, Orthopedic Surgery, Tubal Ligation Additional Past Surgical History / Comment(s): Cardiac ablation/pt cannot recall reason/type of arrhythmia, L foot fracture/pinned, colonoscopies. Past Anesthesia/Blood Transfusion Reactions: No Reported Reaction Past Psychological History: No Psychological Hx Reported Smoking Status: Current every day smoker - Past Family History Father Additional Family Medical History / Comment(s): Father is from an enlarged heart/iglesias's lung. Mother Family Medical History: No Reported History General Exam Limitations: no limitations General appearance: alert, in no apparent distress Head exam: Present: atraumatic, normocephalic Eye exam: Present: normal appearance. Absent: scleral icterus, conjunctival injection Neck exam: Present: normal inspection Respiratory exam: Present: normal lung sounds bilaterally. Absent: respiratory distress, wheezes, rales, rhonchi, stridor Cardiovascular Exam: Present: regular rate, normal rhythm, normal heart sounds. Absent: systolic murmur, diastolic murmur, rubs, gallop GI/Abdominal exam: Present: soft, tenderness (Mild right lower quadrant tenderness without rebound). Absent: distended, guarding, rebound, rigid, mass, pulsatile mass, hernia Extremities exam: Present: normal inspection, normal capillary refill. Absent: pedal edema, calf tenderness Back exam: Present: normal inspection. Absent: CVA tenderness (R), CVA tenderness (L) Neurological exam: Present: alert Skin exam: Present: warm, dry, intact, normal color. Absent: rash Course Vital Signs 05/21/23 05/21/23 03:37 06:16 Temperature 98.8 F 98.4 F Pulse Rate 78 65 Respiratory 18 18 Rate Blood Pressure 143/78 134/82 O2 Sat by Pulse 97 97 Oximetry Medical Decision Making - Medical Decision Making The patient had computed tomography scan of abdomen and pelvis which by my interpretation did not reveal evidence of acute appendicitis or hernia Was pt. sent in by a medical professional or institution ([facility], CAT TENDER, urgent care, hospital, or detention...) When possible be specific @ -[No] Did you speak to anyone other than the patient for history (EMS, parent, family, police, friend...)? What history was obtained from this source @ -[No] Did you review nursing and triage notes (agree or disagree)? Why? @ -[I reviewed and agree with nursing and triage notes] Were old charts reviewed (outside hosp., previous admission, EMS record, old EKG, old radiological studies, urgent care reports/EKG's, detention records)? Report findings @ -[No old charts were reviewed] Differential Diagnosis (chest pain, altered mental status, abdominal pain women, abdominal pain men, vaginal bleeding, weakness, fever, dyspnea, syncope, headache, dizziness, GI bleed, back pain, seizure, CVA, palpatations, mental health, musculoskeletal)? @ -[Differential Abdominal Pain Women: Appendicitis, Cholecystitis, diverticulosis, ischemic bowel, pancreatitis, hepatitis, UTI, gastroenteritis, AAA, incarcerated hernia, bowel obstruction, constipation, inflammatory bowel, hepatitis, peptic ulcer disease, splenic infarction, perforated viscus, vulvitis, ovarian torsion, PID, kidney stone, placenta abruption, this is not meant to be an all-inclusive list EKG interpreted by me (3pts min.). @ -[As above] X-rays interpreted by me (1pt min.). @ -[None done] CT interpreted by me (1pt min.). @ -[I interpreted as above U/S interpreted by me (1pt. min.). @ -[None done] What testing was considered but not performed or refused? (CT, X-rays, U/S, labs)? Why? @ -[None] What meds were considered but not given or refused? Why? @ -[None] Did you discuss the management of the patient with other professionals (professionals i.e. , [facility], CAT TENDER, lab, RT, psych nurse, dialysis social worker, surfboard maker, teacher, school services officer, case packer)? Give summary @ -[No] Was smoking cessation discussed for >3mins.? @ -[No] Was critical care preformed (if so, how long)? @ -[No] Were there social determinants of health that impacted care today? How? (Homelessness, low income, unemployed, alcoholism, drug addiction, transportation, low edu. Level, literacy, decrease access to med. care, [place] [facility], rehab)? @ -[No] Was there de-escalation of care discussed even if they declined (Discuss DNR or withdrawal of care, Hospice)? DNR status @ -[No] What co-morbidities impacted this encounter? (DM, HTN, Smoking, COPD, CAD, Cancer, CVA, ARF, Chemo, Hep., AIDS, mental health diagnosis, sleep apnea, morbid obesity)? @ -[None] Was patient admitted / discharged? Hospital course, mention meds given and route, prescriptions, significant lab abnormalities, going to OR and other pertinent info. @ -[Patient is 62-year-old woman with right lower quadrant pain, found to have some tenderness on the exam, with subsequent computed tomography scan negative for surgical problem. We discussed appropriate further care and follow-up as well as return parameters Undiagnosed new problem with uncertain prognosis? @ -[No] Drug Therapy requiring intensive monitoring for toxicity (Heparin, Nitro, Insulin, Cardizem)? @ -[No] Were any procedures done? @ -[No] Diagnosis/symptom? @ -[Abdominal pain Acute, or Chronic, or Acute on Chronic? @ -[Acute Uncomplicated (without systemic symptoms) or Complicated (systemic symptoms)? @ -[Uncomplicated Side effects of treatment? @ -[No] Exacerbation, Progression, or Severe Exacerbation? @ -[No] Poses a threat to life or bodily function? How? (Chest pain, [place], [place], pneumonia, PE, COPD, DKA, ARF, appy, cholecystitis, CVA, Diverticulitis, Homicidal, Suicidal, threat to staff... and all critical care pts) @ -[No] - Lab Data Result diagrams: 05/21/23 05:20 05/21/23 05:20 Lab Results 05/21/23 05/21/23 05/21/23 Range/Units 05:15 05:20 05:20 WBC 7.8 (3.8-10.6) k/uL RBC 4.50 (3.80-5.40) m/uL Hgb 14.0 (11.4-16.0) gm/dL Hct 41.8 (34.0-46.0) % MCV 92.9 (80.0-100.0) fL MCH 31.1 (25.0-35.0) pg MCHC 33.4 (31.0-37.0) g/dL RDW 12.7 (11.5-15.5) % Plt Count 217 (150-450) k/uL MPV 6.8 Neutrophils % 56 % Lymphocytes % 34 % Monocytes % 5 % Eosinophils % 2 % Basophils % 0 % Neutrophils # 4.4 (1.3-7.7) k/uL Lymphocytes # 2.7 (1.0-4.8) k/uL Monocytes # 0.4 (0-1.0) k/uL Eosinophils # 0.1 (0-0.7) k/uL Basophils # 0.0 (0-0.2) k/uL Sodium 137 (137-145) mmol/L Potassium 4.4 (3.5-5.1) mmol/L Chloride 100 (98-107) mmol/L Carbon Dioxide 29 (22-30) mmol/L Anion Gap 8 mmol/L BUN 17 (7-17) mg/dL Creatinine 0.49 L (0.52-1.04) mg/dL Est GFR (CKD-EPI)AfAm >90 (>60 ml/min/1.73 sqM) Est GFR (CKD-EPI)NonAf >90 (>60 ml/min/1.73 sqM) Glucose 114 H (74-99) mg/dL Calcium 9.9 (8.4-10.2) mg/dL Total Bilirubin 0.8 (0.2-1.3) mg/dL AST 22 (14-36) U/L ALT 21 (4-34) U/L Alkaline Phosphatase 46 (38-126) U/L Total Protein 8.3 H (6.3-8.2) g/dL Albumin 4.6 (3.5-5.0) g/dL Amylase 46 (30-110) U/L Lipase 99 (23-300) U/L Urine Color Yellow Urine Appearance Cloudy H (Clear) Urine pH 6.0 (5.0-8.0) Ur Specific Emma 1.020 (1.001-1.035) Urine Protein 1+ H (Negative) Urine Glucose (UA) Negative (Negative) Urine Ketones Negative (Negative) Urine Blood Trace H (Negative) Urine Nitrite Negative (Negative) Urine Bilirubin Negative (Negative) Urine Urobilinogen <2.0 (<2.0) mg/dL Ur Leukocyte Esterase Moderate H (Negative) Urine RBC 1 (0-5) /hpf Urine WBC 8 H (0-5) /hpf Ur Squamous Epith Cells 1 (0-4) /hpf Urine Mucus Occasional H (None) /hpf Disposition Clinical Impression: Abdominal pain Disposition: HOME SELF-CARE Condition: Good Instructions (If sedation given, give patient instructions): Abdominal Pain (ED) Is patient prescribed a controlled substance at d/c from ED?: No Referrals: Manny Delacruz MD [Primary Care Provider] - 1-2 days
== END 2023-05-21 08:10 | disposition home or self-care (01) ==
LOC: EC 03:23
DX: R10.31 Right lower quadrant pain (principal); F17.200 Nicotine dependence, unspecified, uncomplicated; Z91.030 Bee allergy status; Z91.041 Radiographic dye allergy status; Z88.5 Allergy status to narcotic agent; Z88.1 Allergy status to other antibiotic agents; Z91.018 Allergy to other foods; Z88.8 Allergy status to other drugs, medicaments and biological substances
CPT/HCPCS: 96374; 99284; 36415; 80053; 82150; 83690; 85025; 81001; 74177; J1885

== ENCOUNTER → 2023-11-23 | Outpatient (CLI) | payer BC ==
[2023-11-23 19:09] LABS: ALT 13 U/L (8-44); AST 17 U/L (13-35); Albumin 4.4 g/dL (3.8-4.9); Albumin/Globulin Ratio 1.05 Ratio (1.60-3.17); Alkaline Phosphatase 46 U/L (41-126); BUN/Creat Ratio 19.94 Ratio (12.00-20.00); Blood Urea Nitrogen 33.9 mg/dL (9.0-27.0); Calcium 10.5 mg/dL (8.7-10.3); Carbon Dioxide 24.6 mmol/L (21.6-31.8); Chloride 101 mmol/L (96-109); Globulin 4.2 g/dL (1.6-3.3); Glucose 138 mg/dL (70-110); Potassium 4.6 mmol/L (3.5-5.5); Sodium 140 mmol/L (135-145); Total Bilirubin 0.3 mg/dL (0.3-1.2); Total Protein 8.6 g/dL (6.2-8.2)
[2023-11-23 20:06] LABS: HCT 37.8 % (37.2-46.3); HGB 12.3 g/dL (12.0-15.0); MCH 30.4 pg (27.0-32.0); MCHC 32.5 g/dL (32.0-37.0); MCV 93.3 FL (80.0-97.0); Mean Platelet Volume 8.8 FL (9.5-12.2); NRBC Per 100 WBC 0 X 10*3/uL (0.00-0.01); Platelet Count 305 X 10*3/uL (140-440); RBC 4.05 X 10*6/uL (4.10-5.20); RDW 12.5 % (11.5-14.5); WBC 9.63 X 10*3/uL (4.50-10.00)
== END | disposition home or self-care (01) ==
LOC: LABWHC1 14:45
PROVIDERS: ATTEND Internal Medicine Interventional Cardiology
DX: I34.0 Nonrheumatic mitral (valve) insufficiency (principal); I47.10 Supraventricular tachycardia, unspecified
CPT/HCPCS: 36415; 80053; 85027

== ENCOUNTER → 2023-12-23 | Outpatient (CLI) | payer BC ==
--- NOTE | 2023-12-23 16:54 | US ---
EXAMINATION TYPE: US kidneys/renal and bladder DATE OF EXAM: 12/23/2023 COMPARISON: NONE CLINICAL INDICATION: Female, 63 years old with history of R94.4 ABNORMAL RESULTS OF KIDNEY FUNCTION S TUDIES; abn function test EXAM MEASUREMENTS: Right Kidney: 12.1 x 4.5 x 5.4 cm Left Kidney: 12.5 x 4.3 x 6.1 cm Right Kidney: mild hydro versus fullness within renal pelvis Left Kidney: No hydronephrosis or masses seen Bladder: wnl There is no evidence for hydronephrosis at this point in time. No nephrolithiasis is seen. No ofelia s are identified. The urinary bladder is anechoic. Bilateral ureteral jets are seen. There is mild diffuse increased echogenicity and thinning of the renal cortices suggesting medical re nal disease. IMPRESSION: 1. Findings suggest medical renal disease. 2. No solid renal mass, renal calcification or hydronephrosis.
== END | disposition home or self-care (01) ==
LOC: RADUSWWP 14:31
PROVIDERS: ATTEND Family Medicine
DX: R94.4 Abnormal results of kidney function studies (principal)
CPT/HCPCS: 76770

== ENCOUNTER → 2023-12-30 | Outpatient (CLI) | payer BC ==
[2023-12-30 09:11] LABS: INR 0.9 (<1.2); Prothrombin Time 9.7 sec (10.0-12.5)
[2023-12-30 09:21] LABS: Partial Thromboplastin Time 21.1 sec (22.0-30.0)
[2023-12-30 14:33] LABS: HCT 31.7 % (37.2-46.3); HGB 10.3 g/dL (12.0-15.0); MCH 30.1 pg (27.0-32.0); MCHC 32.5 g/dL (32.0-37.0); MCV 92.7 FL (80.0-97.0); NRBC Per 100 WBC 0 X 10*3/uL (0.00-0.01); Platelet Count 248 X 10*3/uL (140-440); RBC 3.42 X 10*6/uL (4.10-5.20); RDW 12.3 % (11.5-14.5); WBC 8.39 X 10*3/uL (4.50-10.00)
[2023-12-30 16:54] LABS: ALT 12 U/L (8-44); AST 16 U/L (13-35); Albumin 4.5 g/dL (3.8-4.9); Alkaline Phosphatase 36 U/L (41-126); BUN/Creat Ratio 13.03 Ratio (12.00-20.00); Blood Urea Nitrogen 50.8 mg/dL (9.0-27.0); Calcium 10.3 mg/dL (8.7-10.3); Carbon Dioxide 20.1 mmol/L (21.6-31.8); Chloride 102 mmol/L (96-109); Globulin 4.1 g/dL (1.6-3.3); Glucose 127 mg/dL (70-110); Potassium 4.7 mmol/L (3.5-5.5); Sodium 138 mmol/L (135-145); Total Bilirubin 0.3 mg/dL (0.3-1.2); Total Protein 8.6 g/dL (6.2-8.2)
== END | disposition home or self-care (01) ==
LOC: LABWHC1 07:52
PROVIDERS: ATTEND Orthopaedic Surgery
DX: Z01.818 Encounter for other preprocedural examination (principal); M16.11 Unilateral primary osteoarthritis, right hip; Z22.322 Carrier or suspected carrier of Methicillin resistant Staphylococcus aureus
CPT/HCPCS: 36415; 80053; 85027; 85610; 85730; 86850; 86900; 86901; 87070; 93005

== ENCOUNTER → 2024-04-27 | Outpatient (CLI) | payer BC ==
--- NOTE | 2024-04-27 08:50 | CT ---
EXAMINATION TYPE: CT chest wo con DATE OF EXAM: 04/27/2024 COMPARISON: 02/03/2023 HISTORY: lung nodule CT DLP: 163.10 mGycm. Automated Exposure Control for Dose Reduction was Utilized. TECHNIQUE: CT scan of the thorax is performed without IV contrast. FINDINGS: LUNGS: There is a spiculated nodule measuring 1.8 x 1.1 cm in the right upper lobe incrementally incr eased in size with spiculated margins. A malignancy in the differential diagnosis recommend PET scan. Underlying emphysematous changes. There is a subpleural 6 mm nodule in the right upper lobe which joce ears postinflammatory reference image 53. 5 mm groundglass nodule in the left upper lobe too small to characterize. No consolidative pneumonia. No interstitial edema.. MEDIASTINUM: Lack of IV contrast is noted to limit evaluation for mediastinal and especially hilar ad enopathy. Pulmonary artery appears to be prominent correlate for pulmonary arterial hypertension. Reinier cification near the aortic root and valve. Heart size borderline. Thoracic aorta measures a maximal d imension of 3.4 cm. OTHER: Small hiatal hernia. Arthropathy of the shoulders. Generalized demineralization. Curvature of the spine with multilevel hypertrophic and degenerative changes. IMPRESSION: 1. Incremental increase in size of the right upper lobe pulmonary nodule now measuring 1.8 x 1.1 vers us 1.6 x 0.7 cm. Findings suspicious for malignancy recommend PET scan. 2. COPD. Limited assessment for adenopathy due to lack of contrast. Follow-up recommendations for incidental pulmonary nodules are per [employer] or [employer].
== END | disposition home or self-care (01) ==
LOC: RADCTMAIN 08:05
PROVIDERS: ATTEND Internal Medicine
DX: R91.1 Solitary pulmonary nodule
CPT/HCPCS: 71250

== ENCOUNTER → 2024-05-10 | Outpatient (CLI) | payer BC ==
--- NOTE | 2024-05-13 01:44 | PE ---
EXAMINATION TYPE: PET CT fusion skull to thigh DATE OF EXAM: 05/10/2024 CLINICAL INDICATION:Female, 63 years old with history of R91.1 SOLITARY PULMONARY NODULE; TECHNIQUE: Following the intravenous administration of 13.21 mCi of F-18 FDG, whole body images are performed from the skull base to the midthigh. Images are reviewed on the computer in the coronal, axial, and sagittal planes. Reconstructed rotating images are created on independent workstation and reviewed on the computer. A non-contrast CT is performed in conjunction with the PET scan. Glucose level 145 mg/dL CT DLP: 208.67 mGycm, Automated exposure control for dose reduction was used. COMPARISON: CT 04/27/2024, 05/21/2023, 02/03/2023, 07/02/2022, 06/19/2022, 02/15/2022, PET/CT 03/05/2022, M RI: None FINDINGS: Mediastinal SUV mean is 2.3. Hepatic parenchyma SUV mean is 2.6. SKULL BASE AND NECK: No suspicious radiotracer activity. CHEST, MEDIASTINUM, AND HILAR REGION: Right upper lobe spiculated 1.7 x 1.5 cm pulmonary nodule with a maximum SUV of 8.1. Stable 5 mm groundglass nodule within the lateral left upper lobe without FDG activity. No other suspicious radiotracer activity. ABDOMEN AND PELVIS: No suspicious radiotracer activity. MUSCULOSKELETAL STRUCTURES: No suspicious radiotracer activity. Mild uptake surrounding the right shoulder and right hip which probably reflect an inflammatory etiol ogy. OTHER CT: : There are prominent pulmonary arteries consistent with underlying pulmonary artery hypert ension redemonstrated. Mild cardiomegaly again seen. Pelvic phleboliths. Mild atherosclerotic calcifi cation of the aorta and its branches. Emphysematous changes. IMPRESSION: FDG avid right upper lobe 1.7 cm spiculated pulmonary nodule most consistent with primary lung cancer . No other suspicious radiotracer uptake to suggest metastasis. [facility], , 05/13/2024 1:42 AM
== END | disposition home or self-care (01) ==
LOC: RADPETMAIN 14:33
PROVIDERS: ATTEND Internal Medicine
DX: R91.1 Solitary pulmonary nodule (principal)
CPT/HCPCS: 78815; A9552

== ENCOUNTER 2024-05-16 12:00 | Day surgery (SDC) | payer BC ==
[2024-05-11 15:28] VITALS: BMI 21.1
[~2024-05-16 12:00] MED LIST changes: -REGADENOSON 0.4 MG/5 ML SYRINGE IV ONE; +SODIUM CHLORIDE 0.9% 500 ML 500 ML IV SCH
[2024-05-16] MEDS: IV FLUID CONTINUATION 500 ML IV ONE (12:21)
[2024-05-16 12:46] VITALS: BP 173/94; PULSE 106; RESP 18; TEMP 97.1
[2024-05-16 14:43] LABS: Basophils % (A) 1 %; Eosinophils # (A) 0.1 k/uL (0-0.7); Eosinophils % (A) 2 %; HCT 23.5 % (34.0-46.0); HGB 7.5 gm/dL (11.4-16.0); Lymphocytes # (A) 1.7 k/uL (1.0-4.8); Lymphocytes % (A) 32 %; MCH 29.6 pg (25.0-35.0); MCV 92.4 fL (80.0-100.0); Mean Platelet Volume 6.8; Monocytes # (A) 0.3 k/uL (0-1.0); Monocytes % (A) 6 %; Neutrophils # (A) 3.1 k/uL (1.3-7.7); Neutrophils % (A) 56 %; Platelet Count 233 k/uL (150-450); RBC 2.54 m/uL (3.80-5.40); RDW 13.2 % (11.5-15.5); WBC 5.5 k/uL (3.8-10.6)
[2024-05-16 14:53] LABS: African American GFR (CKD) 9 (>60 ml/min/1.73 sqM); Anion Gap 10 mmol/L; Blood Urea Nitrogen 61 mg/dL (7-17); Calcium 10.4 mg/dL (8.4-10.2); Carbon Dioxide 20 mmol/L (22-30); Chloride 108 mmol/L (98-107); Glucose 93 mg/dL (74-99); Non-African American GFR(CKD) 7 (>60 ml/min/1.73 sqM); Potassium 5.3 mmol/L (3.5-5.1); Sodium 138 mmol/L (137-145)
[2024-05-16] MEDS: LIDOCAINE 1% INJ 10MG/ML (20 ML MDV) SQ ONE (14:56)
[2024-05-16] MEDS: fentaNYL (PF) 50 MCG/ML 2 ML AMP IVP ONE (14:57)
[2024-05-16] MEDS: MIDAZOLAM 2 MG/2 ML VIAL IVP ONE (14:57)
--- NOTE | 2024-05-16 15:22 | P.OP ---
Date of Procedure: 05/16/24 Description of Procedure: DATE OF PROCEDURE: 05/16/2024 PREOPERATIVE DIAGNOSIS: Need for dialysis PROCEDURE: 1. Ultrasound-guided right internal jugular vein access. 2. Placement of a 19 cm tunneled dialysis catheter with fluoroscopic assistance. 3. Moderate conscious sedation times 18 minutes PROCEDURE: The patient was brought to the Sales And Marketing Intern placed in supine position. The bilateral necks were prepped and draped in usual sterile fashion. A preprocedure timeout was performed, all parties were in agreement. Using ultrasound the right internal jugular was identified. The site overlying the vein was anesthetized with 1% lidocaine plain and an access needle was used to gain access to the internal jugular vein with return of dark venous, nonpulsatile blood. Seldinger technique was used and a micro-access sheath was placed. Attention was then turned towards the tunnel. The chest wall was anesthetized with 1% lidocaine plain. A small rigo and the skin was made and the previously flushed catheter was tunneled through the anticipated location. Using Seldinger technique and fluoroscopic assistance, the 35 Glidewire was placed and the tract was serially dilated. The final tear-away sheath was left in place. The inner cannula and wire were removed. The catheter was placed in the tear-away sheath was removed in standard fashion. The catheter showed good positioning was final resting place in the cavoatrial junction. The catheter aspirated and flushed freely. The incision at the neck was reapproximated with interrupted sutures of 4-0 Vicryl. The catheter was sutured in place with 3-0 nylon. Dressings were placed. The patient was allowed to awaken from anesthesia and transferred to recovery in stable condition having tolerated the procedure well. A post procedure chest x-ray is pending Plan - Discharge Summary Discharge Rx Participant: No New Discharge Prescriptions: No Action Albuterol Inhaler [Ventolin Hfa Inhaler] 2 puff INHALATION RT-Q4H PRN PRN Reason: Shortness Of Breath EPINEPHrine (Auto Inject) [Epipen] 0.3 mg IM ONCE PRN PRN Reason: Anaphylaxis Acetaminophen [Tylenol Extra Strength] 1,000 mg PO DAILY Budesonide/Formoterol Fumarate [Breyna 80-4.5 Mcg Inhaler] 2 puff INHALATION BID PRN PRN Reason: COPD Allergy Pill Otc 1 tab PO DAILY Discharge Medication List Albuterol Inhaler [Ventolin Hfa Inhaler] 2 puff INHALATION RT-Q4H PRN 01/07/22 [History] Budesonide/Formoterol Fumarate [Breyna 80-4.5 Mcg Inhaler] 2 puff INHALATION BID PRN 01/05/24 [History] EPINEPHrine (Auto Inject) [Epipen] 0.3 mg IM ONCE PRN 01/05/24 [History] Acetaminophen [Tylenol Extra Strength] 1,000 mg PO DAILY 05/11/24 [History] Allergy Pill Otc 1 tab PO DAILY 05/11/24 [History] Follow up Appointment(s)/Referral(s): Sadaf Escoto DO [STAFF PHYSICIAN] - 2 Weeks Activity/Diet/Wound Care/Special Instructions: Do not get catheter wet, may resume activities otherwise. May resume renal diet as previous. May resume home medications. Discharge Disposition: HOME SELF-CARE
--- NOTE | 2024-05-16 15:31 | IR ---
EXAMINATION TYPE: IR cvc insert >=5 years DATE OF EXAM: 05/16/2024 COMPARISON: NONE HISTORY: Fluoroscopy time. Fluoroscopy was provided to the referring clinician. [facility], , 05/16/2024 3:29 PM
--- NOTE | 2024-05-16 15:55 | XR ---
EXAMINATION TYPE: XR chest 1V portable DATE OF EXAM: 05/16/2024 3:45 PM CLINICAL INDICATION: Female, 63 years old with history of catheter placement; [facility] COMPARISON: Chest radiographs from 01/07/2022, PET/CT 05/10/2024 TECHNIQUE: XR chest 1V portable Frontal view of the chest. FINDINGS: Lungs/Pleura: Right upper lobe mass is again visualized from 05/10/2024 patent There is no evidence of pleural effusion, focal consolidation, or pneumothorax. Pulmonary vascularity: Unremarkable. Heart/mediastinum: Cardiomediastinal silhouette is unremarkable. Musculoskeletal: No acute osseous pathology. Other findings: None Lines/Tubes: Right internal jugular central venous catheter with distal tip in the superior vena cava. IMPRESSION: 1. No acute cardiopulmonary disease/process. 2. Right upper lobe mass. 3. Right Central venous catheter with out evidence of pneumothorax. [facility], , 05/16/2024 3:53 PM
== END 2024-05-16 16:37 | disposition home or self-care (01) ==
LOC: CATHCVL 12:00
PROVIDERS: ATTEND Surgery
DX: N18.6 End stage renal disease
CPT/HCPCS: 36558; 71045; 76937; 77001; 80048; 85025

== ENCOUNTER 2024-06-01 16:58 | Emergency (ER) | payer BC, MEDICARE ==
[2024-06-01 17:54] VITALS: RESP 16; TEMP 98
--- NOTE | 2024-06-01 17:57 | ED ---
Recheck HPI - General Chief Complaint: Recheck/Abnormal Lab/Rx Stated Complaint: Abn Labs Time Seen by Provider: 06/01/24 17:54 Source: patient, RN notes reviewed Mode of arrival: ambulatory Limitations: no limitations - History of Present Illness Initial Comments: 63-year-old female presenting to the ER for evaluation of abnormal laboratory studies. Patient has a past medical history of multiple myeloma and chronic kidney disease. She is currently on dialysis. She states she has received approximately 5 treatments. She attends Tuesday. Her last treatment was today. She is following up with Dr. Sales and Dr. Nielsen. Patient states she was told by nephrology that her hemoglobin has dropped to 6.3 from 7.8 in 1 week. Patient denies any history of blood transfusions. She denies any hematochezia, melena or hematic emesis. She reports mild lightheadedness but states this is chronic especially with positional changes. She denies any current chest pain, shortness of breath, dizziness, lightheadedness, cough, congestion, fevers, chills, nausea, vomiting, abdominal pain, constipation/diarrhea, urinary complaints or peripheral edema. - Related Data Home Medications Medication Instructions Recorded Confirmed Albuterol Inhaler [Ventolin Hfa 2 puff INHALATION RT-Q4H PRN 01/07/22 05/16/24 Inhaler] Budesonide/Formoterol Fumarate 2 puff INHALATION BID PRN 01/05/24 05/11/24 [Breyna 80-4.5 Mcg Inhaler] EPINEPHrine (Auto Inject) [Epipen] 0.3 mg IM ONCE PRN 01/05/24 05/16/24 Acetaminophen [Tylenol Extra 1,000 mg PO DAILY 05/11/24 05/11/24 Strength] Allergy Pill Otc 1 tab PO DAILY 05/11/24 05/11/24 Allergies Allergy/AdvReac Type Severity Reaction Status Date / Time bee venom protein (honey bee) Allergy Anaphylaxis Verified 05/16/24 12:31 codeine Allergy Anaphylaxis Verified 05/16/24 12:31 levofloxacin [From Levaquin] Allergy Unknown Verified 05/16/24 12:31 red dye Allergy Anaphylaxis Verified 05/16/24 12:31 strawberry Allergy Anaphylaxis Verified 05/16/24 12:31 chocolate Allergy Anaphylaxis Uncoded 05/16/24 12:31 nuts Allergy Anaphylaxis Uncoded 05/16/24 12:31 STEROIDS AdvReac Severe rage Uncoded 05/16/24 12:31 behavior-"almost killed my dog" Review of Systems ROS Statement: Those systems with pertinent positive or pertinent negative responses have been documented in the HPI. ROS Other: All systems not noted in ROS Statement are negative. Past Medical History Past Medical History: Chest Pain / Angina, COPD, Hypertension, Osteoarthritis (OA), Renal Disease, Thyroid Disorder Additional Past Medical History / Comment(s): Hx racing heart, "have a bad left valve", bronchitis, sinus problems, thyroid nodules-benign, occasional lower back pain, hx anemia with , "too much protein in bone marrow", stage 5 kidney disease, "Need right hip replacement but can't have it due to kidneys." "Have a bad right knee too." History of Any Multi-Drug Resistant Organisms: None Reported Past Surgical History: Cardiac Ablation, Orthopedic Surgery, Tubal Ligation Additional Past Surgical History / Comment(s): Cardiac ablation, L foot fracture/pinned, colonoscopies, right kidney biopsy. Past Anesthesia/Blood Transfusion Reactions: No Reported Reaction Additional Past Anesthesia/Blood Transfusion Reaction / Comment(s): Clausterphobic. Past Psychological History: No Psychological Hx Reported Smoking Status: Former smoker Past Alcohol Use History: None Reported Past Drug Use History: None Reported - Past Family History Father Additional Family Medical History / Comment(s): Father is from an enlarged heart/iglesias's lung. Mother Family Medical History: No Reported History General Exam Limitations: no limitations General appearance: alert, in no apparent distress Respiratory exam: Present: wheezes (Right lung) Cardiovascular Exam: Present: regular rate, normal rhythm, normal heart sounds. Absent: systolic murmur, diastolic murmur, rubs, gallop, clicks Extremities exam: Present: normal inspection, full ROM, normal capillary refill, other (no peripheral edema). Absent: tenderness, pedal edema, joint swelling, calf tenderness Neurological exam: Present: alert, oriented X3, CN II-XII intact Skin exam: Present: warm, dry, intact, normal color. Absent: rash Course Vital Signs 06/01/24 06/01/24 06/01/24 17:13 17:44 18:13 Temperature 98.6 F 98.0 F Pulse Rate 101 H 83 Respiratory 18 16 16 Rate Blood Pressure 124/63 124/83 O2 Sat by Pulse 97 94 L Oximetry 06/01/24 06/01/24 18:41 19:12 Temperature Pulse Rate 99 84 Respiratory 16 16 Rate Blood Pressure 145/85 142/74 O2 Sat by Pulse 95 95 Oximetry Medical Decision Making - Medical Decision Making Was pt. sent in by a medical professional or institution (, PA, ORCHESTRA CONDUCTOR, urgent care, hospital, or half-way...) When possible be specific @ -Patient sent by Dr. Sales for evaluation of low hemoglobin. Did you speak to anyone other than the patient for history (EMS, parent, family, police, friend...)? What history was obtained from this source @ -No Did you review nursing and triage notes (agree or disagree)? Why? @ -I reviewed and agree with nursing and triage notes Were old charts reviewed (outside hosp., previous admission, EMS record, old EKG, old radiological studies, urgent care reports/EKG's, half-way records)? Report findings @ -No old charts were reviewed Differential Diagnosis (chest pain, altered mental status, abdominal pain women, abdominal pain men, vaginal bleeding, weakness, fever, dyspnea, syncope, headache, dizziness, GI bleed, back pain, seizure, CVA, palpatations, mental health, musculoskeletal)? @ -Electrolyte abnormality, anemia, chronic kidney disease, cardiac arrhythmia This list is not meant to be all-inclusive EKG interpreted by me (3pts min.). @ -As above X-rays interpreted by me (1pt min.). @ -None done CT interpreted by me (1pt min.). @ -None done U/S interpreted by me (1pt. min.). @ -None done What testing was considered but not performed or refused? (CT, X-rays, U/S, labs)? Why? @ -None What meds were considered but not given or refused? Why? @ -None Did you discuss the management of the patient with other professionals (prof jeffrey i.e. , PA, ORCHESTRA CONDUCTOR, lab, RT, psych nurse, director of social work, boring machine operator double end, teacher, seismology technical officer, watch caser)? Give summary @ -No Was smoking cessation discussed for >3mins.? @ -No Was critical care preformed (if so, how long)? @ -No Were there social determinants of health that impacted care today? How? (Homelessness, low income, unemployed, alcoholism, drug addiction, transportation, low edu. Level, literacy, decrease access to med. care, usp, rehab)? @ -No Was there de-escalation of care discussed even if they declined (Discuss DNR or withdrawal of care, Hospice)? DNR status @ -No What co-morbidities impacted this encounter? (DM, HTN, Smoking, COPD, CAD, Cancer, CVA, ARF, Chemo, Hep., AIDS, mental health diagnosis, sleep apnea, morbid obesity)? @ -CKD on dialysis Was patient admitted / discharged? Hospital course, mention meds given and route, prescriptions, significant lab abnormalities, going to OR and other pertinent info. @ -Discharge. 63-year-old female presenting to the ER for evaluation of abnormal laboratory studies. Patient was sent by Dr. Sales as she has had a drop in hemoglobin in 1 week from 7.8-6.3. History and physical exam completed. Vitals within normal limits. Patient in no signs of acute distress and nontoxic-appearing. Patient denying any acute complaints. Laboratory studies will be repeated. Laboratory studies today showing a stable hemoglobin of 10.4, sodium 135, potassium 3.2, chronic kidney disease with a GFR 32, BUN 6, c reatinine 1.67. Upon reevaluation, patient resting comfortably exam room no signs of acute distress. Results discussed with patient, all questions answered. Patient is stable for discharge at this time. Advise close follow-up with Dr. Sales, Dr. Nielsen and PCP. I also advised her to continue attending dialysis as scheduled. Strict return parameters discussed. Patient discharged in stable condition. Patient verbally expressed understanding and agreed with care plan. Case discussed with ED attending by Dr. Quan. Undiagnosed new problem with uncertain prognosis? @ -No Drug Therapy requiring intensive monitoring for toxicity (Heparin, Nitro, Insulin, Cardizem)? @ -No Were any procedures done? @ -No Diagnosis/symptom? @ -Anemia chronic disease/recheck laboratory studies Acute, or Chronic, or Acute on Chronic? @ -Acute Uncomplicated (without systemic symptoms) or Complicated (systemic symptoms)? @ -Complicated Side effects of treatment? @ -No Exacerbation, Progression, or Severe Exacerbation? @ -No Poses a threat to life or bodily function? How? (Chest pain, [place], [place], pneumonia, PE, COPD, DKA, ARF, appy, cholecystitis, CVA, Diverticulitis, Homicidal, Suicidal, threat to staff... and all critical care pts) @ -Yes, renal failure can lead to electrolyte abnormalities causing lethal cardiac arrhythmias. - Lab Data Result diagrams: 06/01/24 18:18 06/01/24 18:18 Lab Results 06/01/24 06/01/24 06/01/24 Range/Units 18:18 18:18 18:18 WBC 4.2 (3.8-10.6) k/uL RBC 3.43 L (3.80-5.40) m/uL Hgb 10.4 L (11.4-16.0) gm/dL Hct 30.9 L (34.0-46.0) % MCV 90.0 (80.0-100.0) fL MCH 30.2 (25.0-35.0) pg MCHC 33.6 (31.0-37.0) g/dL RDW 13.3 (11.5-15.5) % Plt Count 196 (150-450) k/uL MPV 7.4 Neutrophils % 66 % Lymphocytes % 25 % Monocytes % 6 % Eosinophils % 2 % Basophils % 0 % Neutrophils # 2.8 (1.3-7.7) k/uL Lymphocytes # 1.0 (1.0-4.8) k/uL Monocytes # 0.2 (0-1.0) k/uL Eosinophils # 0.1 (0-0.7) k/uL Basophils # 0.0 (0-0.2) k/uL Sodium 135 L (137-145) mmol/L Potassium 3.2 L (3.5-5.1) mmol/L Chloride 98 (98-107) mmol/L Carbon Dioxide 29 (22-30) mmol/L Anion Gap 8 mmol/L BUN 6 L (7-17) mg/dL Creatinine 1.67 H (0.52-1.04) mg/dL Est GFR (CKD-EPI)AfAm 37 (>60 ml/min/1.73 sqM) Est GFR (CKD-EPI)NonAf 32 (>60 ml/min/1.73 sqM) Glucose 120 H (74-99) mg/dL Calcium 9.3 (8.4-10.2) mg/dL Total Bilirubin 0.5 (0.2-1.3) mg/dL AST 26 (14-36) U/L ALT 10 (4-34) U/L Alkaline Phosphatase 36 L (38-126) U/L Total Protein 8.1 (6.3-8.2) g/dL Albumin 4.4 (3.5-5.0) g/dL Blood Type AB Negative Blood Type Recheck AB Neg Bld Type Recheck Status No Antibody Screen NEGATIVE Spec Expiration Date 06/04/20242317 - EKG Data -: EKG Interpreted by Me EKG Comments: EKG taken at 18: 21 showing atrial fibrillation with occasional PVC. No acute ST segment or T wave abnormalities. Ventricular rate 96, QRS duration 92, QT/QTc 406/460. Disposition Clinical Impression: Anemia, chronic disease, Encounter for laboratory test Disposition: HOME SELF-CARE Condition: Stable Instructions (If sedation given, give patient instructions): Hemodialysis (DC) Additional Instructions: Please follow-up with dialysis schedule. I also recommend close follow-up with PCP, Dr. Sales and Dr. Nielsen. Return to the ER for any new or worsening concerns. Is patient prescribed a controlled substance at d/c from ED?: No Referrals: Manny Delacruz MD [Primary Care Provider] - 1-2 days Alisia Sales MD [STAFF PHYSICIAN] - 1-2 days Angel Luis Nielsen [STAFF PHYSICIAN] - 1-2 days Time of Disposition: 18:58
[2024-06-01 18:38] LABS: ALT 10 U/L (4-34); AST 26 U/L (14-36); African American GFR (CKD) 37 (>60 ml/min/1.73 sqM); Albumin 4.4 g/dL (3.5-5.0); Alkaline Phosphatase 36 U/L (38-126); Anion Gap 8 mmol/L; Blood Urea Nitrogen 6 mg/dL (7-17); Calcium 9.3 mg/dL (8.4-10.2); Carbon Dioxide 29 mmol/L (22-30); Chloride 98 mmol/L (98-107); Glucose 120 mg/dL (74-99); Non-African American GFR(CKD) 32 (>60 ml/min/1.73 sqM); Potassium 3.2 mmol/L (3.5-5.1); Sodium 135 mmol/L (137-145); Total Bilirubin 0.5 mg/dL (0.2-1.3); Total Protein 8.1 g/dL (6.3-8.2)
[2024-06-01 18:49] LABS: Basophils % (A) 0 %; Eosinophils # (A) 0.1 k/uL (0-0.7); Eosinophils % (A) 2 %; HCT 30.9 % (34.0-46.0); HGB 10.4 gm/dL (11.4-16.0); Lymphocytes % (A) 25 %; MCH 30.2 pg (25.0-35.0); MCHC 33.6 g/dL (31.0-37.0); Mean Platelet Volume 7.4; Monocytes # (A) 0.2 k/uL (0-1.0); Monocytes % (A) 6 %; Neutrophils # (A) 2.8 k/uL (1.3-7.7); Neutrophils % (A) 66 %; Platelet Count 196 k/uL (150-450); RBC 3.43 m/uL (3.80-5.40); RDW 13.3 % (11.5-15.5); WBC 4.2 k/uL (3.8-10.6)
[2024-06-01 19:13] VITALS: BP 142/74; PULSE 84
== END 2024-06-01 19:31 | disposition home or self-care (01) ==
LOC: EC 16:58
CPT/HCPCS: 36415; 80053; 85025; 86850; 86900; 86901; 93005; 99283

== ENCOUNTER 2024-07-13 12:43 | Emergency (ER) | payer BC ==
--- NOTE | 2024-07-13 13:03 | ED ---
General Adult HPI - General Chief complaint: Recheck/Abnormal Lab/Rx Stated complaint: Port issue Time Seen by Provider: 07/13/24 12:50 Source: patient, RN notes reviewed Mode of arrival: ambulatory Limitations: no limitations - History of Present Illness Initial comments: This is a 63-year-old female who presents to the emergency department for problems with her dialysis port. Patient went to get dialysis today and states that her port was not working. This was put in by Dr. Escoto 1-2 months ago. States that she is not sure what is wrong with it, but that they did not even attempt to use it and requested that she come here for imaging. States that she feels like something may have shifted inside. - Related Data Home Medications Medication Instructions Recorded Confirmed Albuterol Inhaler [Ventolin Hfa 2 puff INHALATION RT-Q4H PRN 01/07/22 05/16/24 Inhaler] Budesonide/Formoterol Fumarate 2 puff INHALATION BID PRN 01/05/24 05/11/24 [Breyna 80-4.5 Mcg Inhaler] EPINEPHrine (Auto Inject) [Epipen] 0.3 mg IM ONCE PRN 01/05/24 05/16/24 Acetaminophen [Tylenol Extra 1,000 mg PO DAILY 05/11/24 05/11/24 Strength] Allergy Pill Otc 1 tab PO DAILY 05/11/24 05/11/24 Allergies Allergy/AdvReac Type Severity Reaction Status Date / Time bee venom protein (honey bee) Allergy Anaphylaxis Verified 07/13/24 13:30 codeine Allergy Anaphylaxis Verified 07/13/24 13:30 levofloxacin [From Levaquin] Allergy Unknown Verified 07/13/24 13:30 red dye Allergy Anaphylaxis Verified 07/13/24 13:30 strawberry Allergy Anaphylaxis Verified 07/13/24 13:30 chocolate Allergy Anaphylaxis Uncoded 07/13/24 13:30 nuts Allergy Anaphylaxis Uncoded 07/13/24 13:30 STEROIDS AdvReac Severe rage Uncoded 07/13/24 13:30 behavior-"almost killed my dog" Review of Systems ROS Statement: Those systems with pertinent positive or pertinent negative responses have been documented in the HPI. ROS Other: All systems not noted in ROS Statement are negative. Past Medical History Past Medical History: Chest Pain / Angina, COPD, Hypertension, Osteoarthritis (OA), Renal Disease, Thyroid Disorder Additional Past Medical History / Comment(s): Hx racing heart, "have a bad left valve", bronchitis, sinus problems, thyroid nodules-benign, occasional lower back pain, hx anemia with , "too much protein in bone marrow", stage 5 kidney disease, "Need right hip replacement but can't have it due to kidneys." "Have a bad right knee too." History of Any Multi-Drug Resistant Organisms: None Reported Past Surgical History: Cardiac Ablation, Orthopedic Surgery, Tubal Ligation Additional Past Surgical History / Comment(s): Cardiac ablation, L foot fracture/pinned, colonoscopies, right kidney biopsy. Past Anesthesia/Blood Transfusion Reactions: No Reported Reaction Additional Past Anesthesia/Blood Transfusion Reaction / Comment(s): Clausterphobic. Past Psychological History: No Psychological Hx Reported Smoking Status: Former smoker Past Alcohol Use History: None Reported Past Drug Use History: None Reported - Past Family History Father Additional Family Medical History / Comment(s): Father is from an enlarged heart/iglesias's lung. Mother Family Medical History: No Reported History General Exam Limitations: no limitations General appearance: alert, in no apparent distress Head exam: Present: atraumatic, normocephalic, normal inspection Respiratory exam: Present: normal lung sounds bilaterally. Absent: respiratory distress, wheezes, rales, rhonchi, stridor Cardiovascular Exam: Present: regular rate, normal rhythm, normal heart sounds. Absent: systolic murmur, diastolic murmur, rubs, gallop, clicks Neurological exam: Present: alert, oriented X3, CN II-XII intact Psychiatric exam: Present: normal affect, normal mood Skin exam: Present: warm, dry, intact, normal color. Absent: rash Course Vital Signs 07/13/24 07/13/24 13:30 15:46 Temperature 97.4 F L Pulse Rate 82 80 Respiratory 18 20 Rate Blood Pressure 138/71 134/80 O2 Sat by Pulse 97 95 Oximetry Medical Decision Making - Medical Decision Making This is a 63-year-old female who presents to the emergency department for concerns of problems with her dialysis port. Was pt. sent in by a medical professional or institution? @ -No Did you speak to anyone other than the patient for history? @ -No Did you review nursing and triage notes? @ -Yes, and I agree, it is accurate with regards to the patient's symptoms. Were old charts reviewed? @ -No Differential Diagnosis? @ -Dislodged catheter, clogged catheter, mechanical failure, this is not meant to be an all-inclusive list. EKG interpreted by me (3pts min.)? @ -Not obtained X-rays interpreted by me (1pt min.)? @ -Chest x-ray obtained, my interpretation identifies no localized consolidations or infiltrates. CT interpreted by me (1pt min.)? @ -Not obtained U/S interpreted by me (1pt. min.)? @ -Not obtained What testing was considered but not performed? (CT, X-rays, U/S, labs)? Why? @ -None What meds were considered but not given? Why? @ -None Did you discuss the management of the patient with other professionals? @ -No Did you reconcile home meds? @ -No Was smoking cessation discussed for >3mins.? @ -No Was critical care preformed (if so, how long)? @ -No Were there social determinants of health that impacted care today? How? (Homelessness, low income, unemployed, alcoholism, drug addiction, transportation, low edu. Level, literacy, decrease access to med. care, usp, rehab)? @ -No Was there de-escalation of care discussed even if they declined? (Discuss DNR or withdrawal of care, Hospice)? @ -No What co-morbidities impacted this encounter? (DM, HTN, Smoking, COPD, CAD, Cancer, CVA, Hep., AIDS, mental health diagnosis, sleep apnea, morbid obesity)? @ -Renal failure on dialysis Was patient admitted / discharged? @ -Discharged. X-ray of the chest and soft tissue neck obtained revealing the dialysis catheter in satisfactory position. Dialysis nurse was contacted and they came to the emergency department. They accessed the port and tested it and advised that it was working fine and from their perspective there is nothing wrong with it. Patient discharged home in stable condition and advised to contact the dialysis group to see if her session can be rescheduled. Case discussed with ED attending Dr. Quan. Return precautions reviewed in depth, the patient is instructed to return to the emergency department with any new, worsening, or concerning symptoms. Patient verbalized understanding. Undiagnosed new problem with uncertain prognosis? @ -None Drug Therapy requiring intensive monitoring for toxicity (Heparin, Nitro, Insulin, Cardizem)? @ -None Were any procedures done? @ -None Diagnosis/symptom? @ -Problems with dialysis catheter Acute, or Chronic, or Acute on Chronic? @ -Acute Uncomplicated (without systemic symptoms) or Complicated (systemic symptoms)? @ -Uncomplicated Side effects of treatment? @ -None Exacerbation, Progression, or Severe Exacerbation] @ -Not applicable Poses a threat to life or bodily function? @ -No - Radiology Data Radiology results: report reviewed, image reviewed Disposition Clinical Impression: S/P dialysis catheter insertion, Complication, dialysis catheter clot or failure Disposition: HOME SELF-CARE Additional Instructions: Return to the emergency department with any new, worsening, or concerning symptoms. Contact the dialysis center tomorrow morning or this evening to see if they would like you to reschedule your dialysis. Follow up with your primary care provider in 1-2 days. Is patient prescribed a controlled substance at d/c from ED?: No Referrals: Manny Delacruz MD [Primary Care Provider] - 1-2 days Time of Disposition: 15:37
[2024-07-13 13:33] VITALS: TEMP 97.4
--- NOTE | 2024-07-13 14:51 | XR ---
EXAMINATION TYPE: XR chest 2V DATE OF EXAM: 07/13/2024 2:32 PM COMPARISON: Chest radiographs from CLINICAL INDICATION: Female, 63 years old with history of Eval dialysis catheter placement; TECHNIQUE: XR chest 2V Frontal and lateral views of the chest. FINDINGS: Lungs/Pleura: There is no evidence of pleural effusion, focal consolidation, or pneumothorax. Pulmonary vascularity: Unremarkable. Heart/mediastinum: Cardiomediastinal silhouette is unremarkable. Musculoskeletal: No acute osseous pathology. Other findings: None Right central venous catheter with tip in the superior vena cava. IMPRESSION: No acute cardiopulmonary disease/process. [facility], , 07/13/2024 2:48 PM
--- NOTE | 2024-07-13 14:54 | XR ---
EXAMINATION TYPE: XR soft tissue neck DATE OF EXAM: 07/13/2024 2:32 PM COMPARISON: None CLINICAL INDICATION: Female, 63 years old with history of Eval dialysis catheter placement; [facility] TECHNIQUE: The soft tissues of the neck were imaged in frontal and lateral views. FINDINGS: The prevertebral soft tissues are unremarkable. There is no evidence of mass effect or trac heal deviation. No acute osseous abnormality demonstrated. No evidence of subglottic narrowing. Moderate multilevel degeneration changes of the neck with disc space narrowing osteophyte formation a nd facet uncovertebral joint arthropathy. IMPRESSION: Dialysis catheter appears in satisfactory position. No significant abnormality identified within the soft tissues of the neck. [facility], , 07/13/2024 2:52 PM
[2024-07-13 15:47] VITALS: BP 134/80; PULSE 80; RESP 20
== END 2024-07-13 15:47 | disposition home or self-care (01) ==
LOC: EC 12:43
DX: N28.9 Disorder of kidney and ureter, unspecified (principal); Z87.891 Personal history of nicotine dependence; Z91.030 Bee allergy status; Z88.5 Allergy status to narcotic agent; Z91.048 Other nonmedicinal substance allergy status; Z91.018 Allergy to other foods; Z99.2 Dependence on renal dialysis
CPT/HCPCS: 70360; 71046; 99283

== ENCOUNTER 2024-07-22 20:21 | Emergency (ER) | payer BC ==
[2024-07-22] MEDS: HYDROmorphone 1 MG/ML 1 ML SYRINGE IM STA (20:43)
--- NOTE | 2024-07-22 21:00 | ED ---
Fall HPI - General Chief Complaint: Fall Stated Complaint: Hip pain Time Seen by Provider: 07/22/24 20:25 Source: patient, EMS, RN notes reviewed, old records reviewed Mode of arrival: EMS Limitations: no limitations - History of Present Illness Initial Comments: This is a 63-year-old female with fall fall during transport. 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 Fall Witnessed: yes, by family Place Fall Occurred: home Loss of Consciousness: none Prolonged Down Time?: no Symptoms Prior to Fall: none Location - Extremities: Left: Thigh Severity: moderate Severity scale (1-10): 5 Quality: sharp Context: tripped/slipped Associated Symptoms: denies - Related Data Home Medications Medication Instructions Recorded Confirmed Albuterol Inhaler [Ventolin Hfa 2 puff INHALATION RT-Q4H PRN 01/07/22 05/16/24 Inhaler] Budesonide/Formoterol Fumarate 2 puff INHALATION BID PRN 01/05/24 05/11/24 [Breyna 80-4.5 Mcg Inhaler] EPINEPHrine (Auto Inject) [Epipen] 0.3 mg IM ONCE PRN 01/05/24 05/16/24 Acetaminophen [Tylenol Extra 1,000 mg PO DAILY 05/11/24 05/11/24 Strength] Allergy Pill Otc 1 tab PO DAILY 05/11/24 05/11/24 Allergies Allergy/AdvReac Type Severity Reaction Status Date / Time bee venom protein (honey bee) Allergy Anaphylaxis Verified 07/13/24 13:30 codeine Allergy Anaphylaxis Verified 07/13/24 13:30 levofloxacin [From Levaquin] Allergy Unknown Verified 07/13/24 13:30 red dye Allergy Anaphylaxis Verified 07/13/24 13:30 strawberry Allergy Anaphylaxis Verified 07/13/24 13:30 chocolate Allergy Anaphylaxis Uncoded 07/13/24 13:30 nuts Allergy Anaphylaxis Uncoded 07/13/24 13:30 STEROIDS AdvReac Severe rage Uncoded 07/13/24 13:30 behavior-"almost killed my dog" Review of Systems ROS Statement: Those systems with pertinent positive or pertinent negative responses have been documented in the HPI. ROS Other: All systems not noted in ROS Statement are negative. Past Medical History Past Medical History: Chest Pain / Angina, COPD, Hypertension, Osteoarthritis (OA), Renal Disease, Thyroid Disorder Additional Past Medical History / Comment(s): Hx racing heart, "have a bad left valve", bronchitis, sinus problems, thyroid nodules-benign, occasional lower back pain, hx anemia with , "too much protein in bone marrow", stage 5 kidney disease, "Need right hip replacement but can't have it due to kidneys." "Have a bad right knee too." History of Any Multi-Drug Resistant Organisms: None Reported Past Surgical History: Cardiac Ablation, Orthopedic Surgery, Tubal Ligation Additional Past Surgical History / Comment(s): Cardiac ablation, L foot fracture/pinned, colonoscopies, right kidney biopsy. Past Anesthesia/Blood Transfusion Reactions: No Reported Reaction Additional Past Anesthesia/Blood Transfusion Reaction / Comment(s): Clausterphobic. Past Psychological History: No Psychological Hx Reported Smoking Status: Former smoker Past Alcohol Use History: None Reported Past Drug Use History: Marijuana - Past Family History Father Additional Family Medical History / Comment(s): Father is from an enlarged heart/iglesias's lung. Mother Family Medical History: No Reported History General Exam Limitations: no limitations General appearance: alert, in no apparent distress Head exam: Present: atraumatic, normocephalic, normal inspection Eye exam: Present: normal appearance, PERRL, EOMI. Absent: scleral icterus, conjunctival injection, periorbital swelling ENT exam: Present: normal exam, mucous membranes moist Neck exam: Present: normal inspection. Absent: tenderness, meningismus, lymphadenopathy Respiratory exam: Present: normal lung sounds bilaterally. Absent: respiratory distress, wheezes, rales, rhonchi, stridor Cardiovascular Exam: Present: regular rate, normal rhythm, normal heart sounds. Absent: systolic murmur, diastolic murmur, rubs, gallop, clicks GI/Abdominal exam: Present: soft, normal bowel sounds. Absent: distended, tenderness, guarding, rebound, rigid Extremities exam: Present: normal inspection, full ROM, normal capillary refill. Absent: tenderness, pedal edema, joint swelling, calf tenderness Back exam: Present: normal inspection Neurological exam: Present: alert, oriented X3, CN II-XII intact Psychiatric exam: Present: normal affect, normal mood Skin exam: Present: warm, dry, intact, normal color. Absent: rash Course Vital Signs 07/22/24 07/22/24 20:23 22:07 Temperature 97.8 F 98.6 F Pulse Rate 90 62 Respiratory 18 16 Rate Blood Pressure 176/93 173/97 O2 Sat by Pulse 95 96 Oximetry - Reevaluation(s) Reevaluation #1: Medical records reviewed Reevaluation #2: Patient symptoms improved Reevaluation #3: Patient informed of results and questions answered Reevaluation #4: Was pt. sent in by a medical professional or institution (, [facility], SALVAGE CUTTER, urgent care, hospital, or long term...) When possible be specific @ -no Did you speak to anyone other than the patient for history (EMS, parent, family, police, friend...)? What history was obtained from this source @ -no Did you review nursing and triage notes (agree or disagree)? Why? @ -agree Are old charts reviewed (outside hosp., previous admission, EMS record, old EKG, old radiological studies, urgent care reports/EKG's, long term records)? Report findings @ -yes Differential Diagnosis (chest pain, altered mental status, abdominal pain women, abdominal pain men, vaginal bleeding, weakness, fever, dyspnea, syncope, headache, dizziness, GI bleed, back pain, seizure, CVA, palpatations, mental health, musculoskeletal)? @ -prior EKG interpreted by me (3pts min.). @ -no X-rays interpreted by me (1pt min.). @ -yes negative for acute disease CT interpreted by me (1pt min.). @ -no U/S interpreted by me (1pt. min.). @ -no What testing was considered but not performed or refused? (CT, X-rays, U/S, labs)? Why? @ -none What meds were considered but not given or refused? Why? @ -none Did you discuss the management of the patient with other professionals (professionals i.e. [facility] Pringle, SALVAGE CUTTER, lab, RT, psych nurse, adoption social worker, asbestos siding installer, teacher, dental officer, bilingual case manager)? Give summary @ -no Was smoking cessation discussed for >3mins.? @ -no Was critical care preformed (if so, how long)? @ -no Were there social determinants of health that impacted care today? How? (Homelessness, low income, unemployed, alcoholism, drug addiction, transportation, low edu. Level, literacy, decrease access to med. care, correction, rehab)? @ -none Was there de-escalation of care discussed even if they declined (Discuss DNR or withdrawal of care, Hospice)? DNR status @ -no What co-morbidities impacted this encounter? (DM, HTN, Smoking, COPD, CAD, Can cer, CVA, ARF, Chemo, Hep., AIDS, mental health diagnosis, sleep apnea, morbid obesity)? @ -none Was patient admitted / discharged? Hospital course, mention meds given and route, prescriptions, significant lab abnormalities, going to OR and other pertinent info. @ - 63 female fall with hip pain. No acute traumatic injury noted on x-ray patient can be discharged home Discharge Undiagnosed new problem with uncertain prognosis? @ -no Drug Therapy requiring intensive monitoring for toxicity (Heparin, Nitro, Insulin, Cardizem)? @ -no Were any procedures done? @ -no Diagnosis/symptom? @ -Fall with hip contusion Acute, or Chronic, or Acute on Chronic? @ -Acute Uncomplicated (without systemic symptoms) or Complicated (systemic symptoms)? @ -Complicated Side effects of treatment? @ -no Exacerbation, Progression, or Severe Exacerbation? @ -exacerbation Poses a threat to life or bodily function? How? (Chest pain, USA, RI, pneumonia, PE, COPD, DKA, ARF, appy, cholecystitis, CVA, Diverticulitis, Homicidal, Suicidal, threat to staff... and all critical care pts) @ -yes with fall Reevaluation #5: Differential Weakness: Hypoglycemia, shock, sepsis, hyponatremia, anemia, infection, RI, ETOH, adverse medicine reaction, overdose, stroke, this is not meant to be an all-inclusive list. Medical Decision Making - Medical Decision Making 63 female fall with hip pain. No acute traumatic injury noted on x-ray patient can be discharged home - Radiology Data Radiology results: report reviewed (X-ray chest left hip negative for acute disease), image reviewed Disposition Clinical Impression: Fall, Right hip pain Disposition: HOME SELF-CARE Condition: Fair Instructions (If sedation given, give patient instructions): Hip Contusion (ED) Is patient prescribed a controlled substance at d/c from ED?: No Referrals: Manny Delacruz MD [Primary Care Provider] - 1-2 days Time of Disposition: 22:00
--- NOTE | 2024-07-22 21:09 | XR ---
EXAMINATION TYPE: XR chest 1V DATE OF EXAM: 07/22/2024 9:01 PM COMPARISON: Previous chest 07/13/2024. CLINICAL INDICATION: Female, 63 years old with history of pain; H TECHNIQUE: XR chest 1V Frontal view of the chest. FINDINGS: Right-sided central venous dialysis catheter visualized terminating near the distal SVC. Mild cardiomegaly. Stable spiculated nodule in the right upper lobe. No acute focal consolidation. No pleural effusion or pneumothorax. Lungs hyperinflated. No acute osse ous abnormality. IMPRESSION: No acute abnormality in the chest. [facility], , 07/22/2024 9:06 PM
--- NOTE | 2024-07-22 21:18 | XR ---
EXAMINATION TYPE: XR Hip RT and AP Pelvis DATE OF EXAM: 07/22/2024 9:01 PM COMPARISON: None available. CLINICAL INDICATION: Female, 63 years old with history of pain; [facility] TECHNIQUE: XR Hip RT and AP Pelvis; hip was examined in the frontal and lateral projections and a AP pelvis. FINDINGS: No acute fracture or dislocation. Moderate degenerative arthritis of the right hip with jaron dence of subchondral sclerosis and likely cystic changes. Well-corticated ossific fragment inferior t o the pubic symphysis ramus which could reflect sequelae of previous trauma. Irregular linear lucency through the left pubic ramus is indeterminate for acute fracture versus artifact. This finding is se en on single view only. IMPRESSION: 1. No acute fracture or dislocation of the right hip. 2. Irregular linear lucency through the left pubic ramus which is indeterminate for acute fracture o r artifact. [facility], , 07/22/2024 9:15 PM
[2024-07-22] MEDS: traMADol 50 MG TAB PO STA (21:59)
[2024-07-22] MEDS: traMADol 50 MG STARTER PACK 3 TAB BTL PO STA (22:01)
[2024-07-22 22:08] VITALS: BP 173/97; PULSE 62; RESP 16; TEMP 98.6
== END 2024-07-22 22:08 | disposition home or self-care (01) ==
LOC: EC 20:21
DX: S70.02XA Contusion of left hip, initial encounter (principal); Z87.891 Personal history of nicotine dependence; Z91.030 Bee allergy status; Z88.5 Allergy status to narcotic agent; Z88.1 Allergy status to other antibiotic agents; Z91.041 Radiographic dye allergy status; Z88.8 Allergy status to other drugs, medicaments and biological substances; Z91.018 Allergy to other foods; W05.0XXA Fall from non-moving wheelchair, initial encounter
CPT/HCPCS: 73502; 71045; 99284; 96372; J1171

== ENCOUNTER → 2024-08-09 | Outpatient (CLI) | payer BC ==
--- NOTE | 2024-08-09 12:49 | NM ---
EXAMINATION TYPE: NM bone scan whole body DATE OF EXAM: 08/09/2024 11:25 AM CLINICAL INDICATION:Female, 63 years old with history of N18.9 CHRONIC KIDNEY DISEASE; COMPARISON: 07/22/2024 TECHNIQUE: Intravenous administration 23.5 mCi Tc 99m MDP followed by multiple scintigraphic images o f the appendicular and axial skeleton. Images acquired 3 hours post injection. FINDINGS: Focal uptake within 2 areas in the left ribs thought to be within rib 9 and 10. No significant uptake within the hips to suggest fracture. No abnormal uptake is identified within the appendicular or axial skeleton to suggest metastatic dise ase. There is increased uptake within the bilateral shoulder, sternoclavicular, and sacroiliac joints con sistent with degenerative changes. No other photopenic areas or areas of increased activity are ident ified. Physiologic radiotracer activity is demonstrated in the kidneys and bladder. IMPRESSION: 1. Multiple left-sided rib areas of uptake, findings suggest rib injury correlate for history of rib injury. 2. No evidence for hip fracture. [facility], , 08/09/2024 12:47 PM
== END | disposition home or self-care (01) ==
LOC: RADNMMAIN 07:40
PROVIDERS: ATTEND Internal Medicine Nephrology
DX: N18.9 Chronic kidney disease, unspecified (principal)
CPT/HCPCS: 78306; A9503

== ENCOUNTER 2024-08-21 05:05 | Inpatient (IN) | payer BC ==
[2024-08-21 05:31] LABS: Anisocytosis Slight; Basophils % (A) 0 %; Eosinophils % (A) 0 %; HCT 24.8 % (34.0-46.0); HGB 7.8 gm/dL (11.4-16.0); Hypochromasia Moderate; Lymphocytes # (A) 0.2 k/uL (1.0-4.8); Lymphocytes % (A) 3 %; MCH 28.7 pg (25.0-35.0); MCHC 31.2 g/dL (31.0-37.0); MCV 91.8 fL (80.0-100.0); Mean Platelet Volume 7.7; Monocytes # (A) 0.4 k/uL (0-1.0); Monocytes % (A) 8 %; Neutrophils # (A) 4.8 k/uL (1.3-7.7); Neutrophils % (A) 87 %; Platelet Count 273 k/uL (150-450); RBC 2.71 m/uL (3.80-5.40); RDW 19.4 % (11.5-15.5); WBC 5.5 k/uL (3.8-10.6)
--- NOTE | 2024-08-21 05:31 | ED ---
General Adult HPI - General Chief complaint: Extremity Problem,Nontraumatic Stated complaint: R Leg Pain Time Seen by Provider: 08/21/24 05:14 Source: patient, EMS, RN notes reviewed, old records reviewed Mode of arrival: EMS Limitations: no limitations - History of Present Illness Initial comments: 63-year-old female history of end-stage renal disease, lung CA presenting with right lower extremity pain. Patient denies trauma. Denies fever. Denies swelling. She states she has had similar pain over the past several months but this did worsen this evening. - Related Data Home Medications Medication Instructions Recorded Confirmed Albuterol Inhaler [Ventolin Hfa 2 puff INHALATION RT-Q4H PRN 01/07/22 05/16/24 Inhaler] Budesonide/Formoterol Fumarate 2 puff INHALATION BID PRN 01/05/24 05/11/24 [Breyna 80-4.5 Mcg Inhaler] EPINEPHrine (Auto Inject) [Epipen] 0.3 mg IM ONCE PRN 01/05/24 05/16/24 Acetaminophen [Tylenol Extra 1,000 mg PO DAILY 05/11/24 05/11/24 Strength] Allergy Pill Otc 1 tab PO DAILY 05/11/24 05/11/24 Allergies Allergy/AdvReac Type Severity Reaction Status Date / Time bee venom protein (honey bee) Allergy Anaphylaxis Verified 08/21/24 05:16 codeine Allergy Anaphylaxis Verified 08/21/24 05:16 levofloxacin [From Levaquin] Allergy Unknown Verified 08/21/24 05:16 red dye Allergy Anaphylaxis Verified 08/21/24 05:16 strawberry Allergy Anaphylaxis Verified 08/21/24 05:16 chocolate Allergy Anaphylaxis Uncoded 08/21/24 05:16 nuts Allergy Anaphylaxis Uncoded 08/21/24 05:16 STEROIDS AdvReac Severe rage Uncoded 08/21/24 05:16 behavior-"almost killed my dog" Review of Systems ROS Statement: Those systems with pertinent positive or pertinent negative responses have been documented in the HPI. ROS Other: All systems not noted in ROS Statement are negative. Past Medical History Past Medical History: Chest Pain / Angina, COPD, Hypertension, Osteoarthritis (OA), Renal Disease, Thyroid Disorder Additional Past Medical History / Comment(s): Hx racing heart, "have a bad left valve", bronchitis, sinus problems, thyroid nodules-benign, occasional lower back pain, hx anemia with , "too much protein in bone marrow", stage 5 kidney disease, "Need right hip replacement but can't have it due to kidneys." "Have a bad right knee too." History of Any Multi-Drug Resistant Organisms: None Reported Past Surgical History: Cardiac Ablation, Orthopedic Surgery, Tubal Ligation Additional Past Surgical History / Comment(s): Cardiac ablation, L foot fracture/pinned, colonoscopies, right kidney biopsy. Past Anesthesia/Blood Transfusion Reactions: No Reported Reaction Additional Past Anesthesia/Blood Transfusion Reaction / Comment(s): Ana sterphobic. Past Psychological History: No Psychological Hx Reported Smoking Status: Former smoker Past Alcohol Use History: None Reported Past Drug Use History: Marijuana - Past Family History Father Additional Family Medical History / Comment(s): Father is from an enlarged heart/iglesias's lung. Mother Family Medical History: No Reported History General Exam Limitations: no limitations General appearance: alert, cachectic Head exam: Present: atraumatic, normocephalic Eye exam: Present: normal appearance, PERRL ENT exam: Present: mucous membranes dry Respiratory exam: Present: wheezes, decreased breath sounds Cardiovascular Exam: Present: regular rate, normal rhythm GI/Abdominal exam: Present: soft. Absent: distended Extremities exam: Present: normal inspection, tenderness (Anterior thigh), other (2+ pedal pulse, lymphadenopathy in the right groin) Neurological exam: Present: alert, oriented X3 Psychiatric exam: Present: anxious Skin exam: Present: warm, dry, intact, normal color Course Vital Signs 08/21/24 08/21/24 05:06 06:38 Temperature 98.1 F Pulse Rate 105 H 98 Respiratory 24 Rate Blood Pressure 121/60 O2 Sat by Pulse 96 Oximetry Medical Decision Making - Medical Decision Making Was pt. sent in by a medical professional or institution (, PA, DIE CUTTER, urgent care, hospital, or prison...) When possible be specific @ -No Did you speak to anyone other than the patient for history (EMS, parent, family, police, friend...)? What history was obtained from this source @ -No Did you review nursing and triage notes (agree or disagree)? Why? @ -I reviewed and agree with nursing and triage notes Were old charts reviewed (outside hosp., previous admission, EMS record, old EKG, old radiological studies, urgent care reports/EKG's, prison records)? Report findings @ -No old charts were reviewed Differential Diagnosis: Arterial occlusion, cancer related pain, cellulitis, compartment syndrome, lymphadenopathy EKG interpreted by me (3pts min.). @ -As above X-rays interpreted by me (1pt min.). @ -None done CT interpreted by me (1pt min.). @ -None done U/S interpreted by me (1pt. min.). @ -None done What testing was considered but not performed or refused? (CT, X-rays, U/S, labs)? Why? @ -None What meds were considered but not given or refused? Why? @ -None Did you discuss the management of the patient with other professionals (professionals i.e. , PA, DIE CUTTER, lab, RT, psych nurse, health care social worker, embedded software development engineer, teacher, trust officer, case packer and sealer)? Give summary @Jayme Was smoking cessation discussed for >3mins.? @ -No Was critical care preformed (if so, how long)? @ -No Were there social determinants of health that impacted care today? How? (Homelessness, low income, unemployed, alcoholism, drug addiction, tra nsportation, low edu. Level, literacy, decrease access to med. care, assisted, rehab)? @ -No Was there de-escalation of care discussed even if they declined (Discuss DNR or withdrawal of care, Hospice)? DNR status @ -No What co-morbidities impacted this encounter? (DM, HTN, Smoking, COPD, CAD, Cancer, CVA, ARF, Chemo, Hep., AIDS, mental health diagnosis, sleep apnea, morbid obesity)? @ -[COPD, lung CA, chronic pain Was patient admitted / discharged? Hospital course, mention meds given and route, prescriptions, significant lab abnormalities, going to OR and other pertinent info. @ -63-year-old female with right upper thigh pain. There is no external signs of infection. The thigh compartments are soft. There is adenopathy in the right groin. Distal pulses are intact. There is no fall or traumatic injury. Patient's pain is treated in the emergency department. She did receive laborato ry testing which is stable from baseline. Normal lactic acid. Patient's pain is severe and persistent. She will be admitted for pain control. Consults both to oncology and nephrology. Patient admitted to her primary care Dr. Delacruz who is aware. Undiagnosed new problem with uncertain prognosis? @ -[No Drug Therapy requiring intensive monitoring for toxicity (Heparin, Nitro, Insulin, Cardizem)? @ -No Were any procedures done? @ -No Diagnosis/symptom? @ -Intractable pain, lung CA Acute, or Chronic, or Acute on Chronic? @ -Acute on chronic Uncomplicated (without systemic symptoms) or Complicated (systemic symptoms)? @ -Default Side effects of treatment? @ -No Exacerbation, Progression, or Severe Exacerbation? @ -No Poses a threat to life or bodily function? How? (Chest pain, USA, OR, pneumonia, PE, COPD, DKA, ARF, appy, cholecystitis, CVA, Diverticulitis, Homicidal, Suicidal, threat to staff... and all critical care pts) @ -moderate Risk at this time - Lab Data Result diagrams: 08/21/24 05:19 08/21/24 05:19 Lab Results 08/21/24 08/21/24 08/21/24 Range/Units 05:19 05:19 05:19 WBC 5.5 (3.8-10.6) k/uL RBC 2.71 L (3.80-5.40) m/uL Hgb 7.8 L (11.4-16.0) gm/dL Hct 24.8 L (34.0-46.0) % MCV 91.8 (80.0-100.0) fL MCH 28.7 (25.0-35.0) pg MCHC 31.2 (31.0-37.0) g/dL RDW 19.4 H (11.5-15.5) % Plt Count 273 (150-450) k/uL MPV 7.7 Neutrophils % 87 % Lymphocytes % 3 % Monocytes % 8 % Eosinophils % 0 % Basophils % 0 % Neutrophils # 4.8 (1.3-7.7) k/uL Lymphocytes # 0.2 L (1.0-4.8) k/uL Monocytes # 0.4 (0-1.0) k/uL Eosinophils # 0.0 (0-0.7) k/uL Basophils # 0.0 (0-0.2) k/uL Hypochromasia Moderate Anisocytosis Slight Sodium 132 L (137-145) mmol/L Potassium 4.8 (3.5-5.1) mmol/L Chloride 95 L (98-107) mmol/L Carbon Dioxide 20 L (22-30) mmol/L Anion Gap 17 mmol/L BUN 87 H (7-17) mg/dL Creatinine 8.27 H* (0.52-1.04) mg/dL Est GFR (CKD-EPI)AfAm 5 (>60 ml/min/1.73 sqM) Est GFR (CKD-EPI)NonAf 5 (>60 ml/min/1.73 sqM) Glucose 113 H (74-99) mg/dL Plasma Lactic Acid Jerrod 1.6 (0.7-2.0) mmol/L Calcium 9.0 (8.4-10.2) mg/dL Total Bilirubin 0.2 (0.2-1.3) mg/dL AST 27 (14-36) U/L ALT 19 (4-34) U/L Alkaline Phosphatase 60 (38-126) U/L Total Protein 7.4 (6.3-8.2) g/dL Albumin 3.7 (3.5-5.0) g/dL Disposition Clinical Impression: Right hip pain, Intractable pain Disposition: ADMITTED IP TO THIS [facility] Condition: Stable Is patient prescribed a controlled substance at d/c from ED?: No Referrals: Manny Delacruz MD [Primary Care Provider] - 1-2 days Time of Disposition: 06:50
[2024-08-21 05:44] LABS: ALT 19 U/L (4-34); AST 27 U/L (14-36); African American GFR (CKD) 5 (>60 ml/min/1.73 sqM); Albumin 3.7 g/dL (3.5-5.0); Alkaline Phosphatase 60 U/L (38-126); Anion Gap 17 mmol/L; Blood Urea Nitrogen 87 mg/dL (7-17); Carbon Dioxide 20 mmol/L (22-30); Chloride 95 mmol/L (98-107); Glucose 113 mg/dL (74-99); Non-African American GFR(CKD) 5 (>60 ml/min/1.73 sqM); Potassium 4.8 mmol/L (3.5-5.1); Sodium 132 mmol/L (137-145); Total Bilirubin 0.2 mg/dL (0.2-1.3); Total Protein 7.4 g/dL (6.3-8.2)
[2024-08-21] MEDS: HYDROmorphone 1 MG/ML 1 ML SYRINGE IVP STA (05:48)
[2024-08-21] MEDS: IPRATROPIUM-ALBUTEROL 3 ML NEB INHALATION STA (06:40)
[2024-08-21] MEDS: ALBUTEROL NEBULIZED 2.5 MG/3 ML INHALATION STA (06:40)
[2024-08-21] MEDS ORDERED: NALOXONE 0.4 MG/ML 1 ML VIAL IV PRN (06:45)
[2024-08-21] MEDS: SODIUM CHLORIDE 0.9% 500 ML 500 ML IV ONE (06:54)
[2024-08-21] MEDS: SODIUM CHLORIDE 0.9% 1,000 ML IV SCH (06:54)
[2024-08-21] MEDS: HYDROmorphone 0.5 MG/0.5 ML SYRINGE IVP STA (06:55)
--- NOTE | 2024-08-21 07:34 | XR ---
EXAMINATION TYPE: XR femur RT DATE OF EXAM: 08/21/2024 7:08 AM COMPARISON: None. CLINICAL INDICATION: Female, 63 years old with history of pain, pain TECHNIQUE: 2 view(s) obtained. FINDINGS: Femoral head articulates with the acetabulum. There is loss of right hip joint space. No acute fractu res or dislocations evident. Knee joint space appears preserved. No joint effusion is evident. IMPRESSION: 1. Moderate degenerative changes right hip. [facility], , 08/21/2024 7:32 AM
--- NOTE | 2024-08-21 07:42 | XR ---
EXAMINATION TYPE: XR Hip RT and AP Pelvis DATE OF EXAM: 08/21/2024 7:07 AM COMPARISON: None. CLINICAL INDICATION: Female, 63 years old with history of pain, pain TECHNIQUE: 2 view(s) obtained right hip supplemented with AP pelvis. FINDINGS: Femoral heads articulate with the acetabulum. There is narrowing of the joint space of the right hip. Symphysis pubis and sacroiliac joints are normal. No displaced fractures are identified IMPRESSION: 1. Moderate degenerative changes right hip joint space [facility], , 08/21/2024 7:40 AM
[2024-08-21] MEDS ORDERED: SYMBICORT 80-4.5 MCG INHALER INHALATION PRN (08:18)
--- NOTE | 2024-08-21 08:56 | P.HPIM ---
History of Present Illness H&P Date: 08/21/24 This is a 63-year-old female who presented to the emergency department with complaints of right lower extremity pain. Patient has a history of end-stage renal disease, as well as lung cancer and a recent diagnosis of multiple myeloma. Patient denies any trauma to leg. She reports she has had similar pain in the past in her right lower extremity but workup has been normal. XR's showing arthritis on admission. Patient maintained on hemodialysis as an outpatient, is due for dialysis today. Further medical history as noted below. Review of Systems Constitutional: Denies chills, Denies fever Cardiovascular: Denies chest pain, Denies dyspnea on exertion Respiratory: Denies cough, Denies dyspnea Gastrointestinal: Denies nausea, Denies vomiting Musculoskeletal: Denies arm numbness/tingling, Denies leg numbness/tingling Musculoskeletal: right: hip pain, knee pain Neurological: Denies headaches, Denies weakness Past Medical History Past Medical History: Chest Pain / Angina, COPD, Hypertension, Osteoarthritis (OA), Renal Disease, Thyroid Disorder Additional Past Medical History / Comment(s): Hx racing heart, "have a bad left valve", bronchitis, sinus problems, thyroid nodules-benign, occasional lower back pain, hx anemia with , "too much protein in bone marrow", stage 5 kidney disease, "Need right hip replacement but can't have it due to kidneys." "Have a bad right knee too." History of Any Multi-Drug Resistant Organisms: None Reported Past Surgical History: Cardiac Ablation, Orthopedic Surgery, Tubal Ligation Additional Past Surgical History / Comment(s): Cardiac ablation, L foot fracture/pinned, colonoscopies, right kidney biopsy. Past Anesthesia/Blood Transfusion Reactions: No Reported Reaction Additional Past Anesthesia/Blood Transfusion Reaction / Comment(s): Clausterphobic. Past Psychological History: No Psychological Hx Reported Smoking Status: Former smoker Past Alcohol Use History: None Reported Past Drug Use History: Marijuana - Past Family History Father Additional Family Medical History / Comment(s): Father is from an enlarged heart/iglesias's lung. Mother Family Medical History: No Reported History Medications and Allergies Home Medications Medication Instructions Recorded Confirmed Type Albuterol Inhaler [Ventolin Hfa 2 puff INHALATION RT-Q4H PRN 01/07/22 05/16/24 History Inhaler] Budesonide/Formoterol Fumarate 2 puff INHALATION BID PRN 01/05/24 05/11/24 History [Breyna 80-4.5 Mcg Inhaler] EPINEPHrine (Auto Inject) [Epipen] 0.3 mg IM ONCE PRN 01/05/24 05/16/24 History Acetaminophen [Tylenol Extra 1,000 mg PO DAILY 05/11/24 05/11/24 History Strength] Allergy Pill Otc 1 tab PO DAILY 05/11/24 05/11/24 History Allergies Allergy/AdvReac Type Severity Reaction Status Date / Time bee venom protein (honey bee) Allergy Anaphylaxis Verified 08/21/24 05:16 codeine Allergy Anaphylaxis Verified 08/21/24 05:16 levofloxacin [From Levaquin] Allergy Unknown Verified 08/21/24 05:16 red dye Allergy Anaphylaxis Verified 08/21/24 05:16 strawberry Allergy Anaphylaxis Verified 08/21/24 05:16 chocolate Allergy Anaphylaxis Uncoded 08/21/24 05:16 nuts Allergy Anaphylaxis Uncoded 08/21/24 05:16 STEROIDS AdvReac Severe rage Uncoded 08/21/24 05:16 behavior-"almost killed my dog" Physical Exam Vitals: Vital Signs Temp Pulse Resp BP Pulse Ox 08/21/24 06:56 100 08/21/24 06:38 98 08/21/24 06:00 102 H 22 90/79 95 08/21/24 05:06 98.1 F 105 H 24 121/60 96 Intake and Output 08/20/24 08/21/24 08/21/24 22:59 06:59 14:59 Other: Weight 53.977 kg - Constitutional General appearance: cooperative, no acute distress - EENT Eyes: PERRLA - Neck Neck: no lymphadenopathy, normal ROM, no rigidity - Respiratory Respiratory: bilateral: diminished - Cardiovascular Rhythm: regular Heart sounds: normal: S1, S2 - Gastrointestinal General gastrointestinal: soft, no tenderness - Musculoskeletal Pain with ROM of right lower extremity - Psychiatric Psychiatric: A&O x's 3 Results CBC & Chem 7: 08/21/24 05:19 08/21/24 05:19 Labs: Abnormal Lab Results - Last 24 Hours (Table) 08/21/24 08/21/24 Range/Units 05:19 05:19 RBC 2.71 L (3.80-5.40) m/uL Hgb 7.8 L (11.4-16.0) gm/dL Hct 24.8 L (34.0-46.0) % RDW 19.4 H (11.5-15.5) % Lymphocytes # 0.2 L (1.0-4.8) k/uL Sodium 132 L (137-145) mmol/L Chloride 95 L (98-107) mmol/L Carbon Dioxide 20 L (22-30) mmol/L BUN 87 H (7-17) mg/dL Creatinine 8.27 H* (0.52-1.04) mg/dL Glucose 113 H (74-99) mg/dL Assessment and Plan (1) Lung cancer Current Visit: Yes Status: Acute Code(s): C34.90 - MALIGNANT NEOPLASM OF UNSP PART OF UNSP BRONCHUS OR LUNG SNOMED Code(s): 494915108 (2) Multiple myeloma Current Visit: Yes Status: Acute Code(s): C90.00 - MULTIPLE MYELOMA NOT HAVING ACHIEVED REMISSION SNOMED Code(s): 712525360 (3) Intractable pain Current Visit: Yes Status: Acute Code(s): R52 - PAIN, UNSPECIFIED SNOMED Code(s): 94855375 (4) COPD (chronic obstructive pulmonary disease) Current Visit: Yes Status: Acute Code(s): J44.9 - CHRONIC OBSTRUCTIVE PULMONARY DISEASE, UNSPECIFIED SNOMED Code(s): 02078831 (5) End stage renal disease Current Visit: Yes Status: Acute Code(s): N18.6 - END STAGE RENAL DISEASE SNOMED Code(s): 67255942 Plan: Consults to oncology and nephrology. Continue pain management. Patient seen and evaluated by nurse practitioner, physician in agreement with plan.
[2024-08-21] MEDS: HYDROmorphone 1 MG/ML 1 ML SYRINGE IVP PRN (12:25)
--- NOTE | 2024-08-21 13:06 | P.NPCON ---
History of Present Illness - Reason for Consult end stage renal disease - History of Present Illness patient is a 63-year-old female with end-stage renal disease currently maintained on hemodialysis on Tuesday schedule. Patient is being treated for underlying multiple myeloma which was etiology for end-stage renal disease as well. Patient is admitted to the hospital with complaints of p ain in the right leg. She denied any fever chills nausea vomiting or trauma. No history of leg swelling. Patient is scheduled for hemodialysis today. No complaints of shortness of breath. Past Medical History Past Medical History: Chest Pain / Angina, COPD, Hypertension, Osteoarthritis (OA), Renal Disease, Thyroid Disorder Additional Past Medical History / Comment(s): Hx racing heart, "have a bad left valve", bronchitis, sinus problems, thyroid nodules-benign, occasional lower back pain, hx anemia with , "too much protein in bone marrow", stage 5 kidney disease, "Need right hip replacement but can't have it due to kidneys." "Have a bad right knee too." History of Any Multi-Drug Resistant Organisms: None Reported Past Surgical History: Cardiac Ablation, Orthopedic Surgery, Tubal Ligation Additional Past Surgical History / Comment(s): Cardiac ablation, L foot fracture/pinned, colonoscopies, right kidney biopsy. Past Anesthesia/Blood Transfusion Reactions: No Reported Reaction Additional Past Anesthesia/Blood Transfusion Reaction / Comment(s): Clausterphobic. Past Psychological History: No Psychological Hx Reported Smoking Status: Former smoker Past Alcohol Use History: None Reported Past Drug Use History: Marijuana - Past Family History Father Additional Family Medical History / Comment(s): Father is from an enlar ged heart/iglesias's lung. Mother Family Medical History: No Reported History Medications and Allergies Home Medications Medication Instructions Recorded Confirmed Type Budesonide/Formoterol Fumarate 2 puff INHALATION RT-BID PRN 01/05/24 08/21/24 History [Breyna 80-4.5 Mcg Inhaler] Acetaminophen [Tylenol Extra 500 mg PO BID 05/11/24 08/21/24 History Strength] Acyclovir [Zovirax] 400 mg PO BID 08/21/24 08/21/24 History Ascorbic Acid [Vitamin C] 1,000 mg PO DAILY 08/21/24 08/21/24 History Aspirin EC [Ecotrin Low Dose] 81 mg PO DAILY 08/21/24 08/21/24 History Calcium Carbonate/Vitamin D3 1 tab PO DAILY 08/21/24 08/21/24 History [Calcium 600 mg-Vit D3 10 mcg (400 Unit)] Cholecalciferol [Vitamin D3 (125 125 mcg PO DAILY 08/21/24 08/21/24 History Mcg = 5000 Iu)] Cyanocobalamin [Vitamin B-12] 500 mcg PO DAILY 08/21/24 08/21/24 History Ferrous Sulfate [Feosol] 325 mg PO DAILY 08/21/24 08/21/24 History Folic Acid 0.8 mg PO DAILY 08/21/24 08/21/24 History Glucosam/Christiano-Msm1/C/Giovanny/Bosw 1 tab PO DAILY 08/21/24 08/21/24 History [Glucosamine-Chondroitin Tablet] Loratadine 10 mg PO DAILY 08/21/24 08/21/24 History Multivitamins, Thera [Multivitamin 1 tab PO DAILY 08/21/24 08/21/24 History (formulary)] [place]-3/Dha/Epa/Fish Oil [Fish Oil 1 cap PO DAILY 08/21/24 08/21/24 History 1,000 mg Softgel] Omeprazole 20 mg PO DAILY 08/21/24 08/21/24 History Vit C/E/Zn/Coppr/Lutein/Zeaxan 1 tab PO DAILY 08/21/24 08/21/24 History [Preservision Areds 2 Softgel] Vitamin E (Dl,Tocopheryl Acet) 400 unit PO DAILY 08/21/24 08/21/24 History [Vitamin E (400 Iu = 180 mg)] dexAMETHasone [Decadron] 8 mg PO DAILY 08/21/24 08/21/24 History Allergies Allergy/AdvReac Type Severity Reaction Status Date / Time bee venom protein (honey bee) Allergy Anaphylaxis Verified 08/21/24 10:40 codeine Allergy Anaphylaxis Verified 08/21/24 10:40 levofloxacin [From Levaquin] Allergy Unknown Verified 08/21/24 10:40 red dye Allergy Anaphylaxis Verified 08/21/24 10:40 strawberry Allergy Anaphylaxis Verified 08/21/24 10:40 chocolate Allergy Anaphylaxis Uncoded 08/21/24 05:16 nuts Allergy Anaphylaxis Uncoded 08/21/24 05:16 STEROIDS AdvReac Severe rage Uncoded 08/21/24 05:16 behavior-"almost killed my dog" Physical Exam Vitals: Vital Signs Temp Pulse Resp BP Pulse Ox 08/21/24 10:06 97.9 F 92 18 95/66 95 08/21/24 06:56 100 08/21/24 06:38 98 08/21/24 06:00 102 H 22 90/79 95 08/21/24 05:06 98.1 F 105 H 24 121/60 96 Intake and Output 08/20/24 08/21/24 08/21/24 22:59 06:59 14:59 Other: Weight 53.977 kg patient is awake, comfortable, no acute distress. Examination of the heart S1 and S2 Examination of the lungs bilateral breath sounds are heard Abdomen is soft nontender No edema noted in the lower extremities Results - Lab Results Most recent lab results Calcium 9.0 mg/dL (8.4-10.2) 08/21/24 05:19 08/21/24 05:19 08/21/24 05:19 Assessment and Plan Assessment: 1. End-stage renal disease on hemodialysis via right IJ permacath. 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 2. Right leg pain, ultrasound has been ordered, workup as per primary service. 3. Anemia, multifactorial associated with underlying multiple myeloma,, chemotherapy and renal failure 4. Pulmonary nodule Plan: hemodialysis today Add Aranesp decrease IV fluids. Thank you for the consultation. We will continue to follow the patient with you during her hospitalization.
--- NOTE | 2024-08-21 13:26 | XR ---
EXAMINATION TYPE: XR chest 1V DATE OF EXAM: 08/21/2024 COMPARISON: 07/22/[address] 04/27/2024 CLINICAL INDICATION: Female, 63 years old with shortness of breath, history of CHF; TECHNIQUE: Single frontal view of the chest is obtained. FINDINGS: Right-sided double-lumen hemodialysis catheter tips at the mid SVC level. Heart remains moderately en larged. Diffuse interstitial density is present. Hyperinflation. Focal right upper lobe opacity. No c onsolidation or pleural effusion. IMPRESSION: 1. Moderate cardiomegaly, COPD, and mild pulmonary vascular congestion. 2. Known findings suspicious for right upper lobe lung cancer. [facility], , 08/21/2024 1:24 PM
--- NOTE | 2024-08-21 14:24 | US ---
EXAMINATION TYPE: US groin RT DATE OF EXAM: 08/21/2024 COMPARISON: NONE CLINICAL INDICATION: Female, 63 years old with history of right groin pain, edema vs LAD/mass; rt meera in palp mass TECHNIQUE: Exterminator notes: Several images taken at area of palp FINDINGS: Exterminator notes: There is at least a moderate joint effusion with degenerative spurring noted. Len tionally, there is a heterogeneous 7.9x4.1x3.4cm isoechoic area which seems to surround the right hip . IMPRESSION: 1. Moderate right hip OA with at least a moderate joint effusion. 2. A 7.9 x 4.1 x 2.4 cm isoechoic abnormality seems to surround the right hip. Unclear if this repres ents a large ganglion cyst containing internal thickened material versus some type of soft tissue mas s. Consider further MRI evaluation. [facility], , 08/21/2024 2:21 PM
[2024-08-21 18:42] LABS: Glucose,Whole Blood 112 mg/dL (70-110)
--- NOTE | 2024-08-21 19:57 | P.CONS ---
History of Present Illness - Reason for Consult Consult date: 08/21/24 multiple myeloma Requesting physician: Waylon Tran - Chief Complaint right leg pain - History of Present Illness Patient is a 63 year old female with a significant history of ESRD, and multiple myeloma who follows with Dr. Nielsen. The patient does have significant DJD and was having progressive issues related to the right hip. During evaluation prior to a planned THR, she was found to have elevated creatinine at 3.9 with castrated EGFR of 12. The patient was seen by nephrology, and workup initiated. She was admitted to the hospital in 04/14, with worsening of her creatinine into the 5-6 range with development of essentially end-stage disease. Her workup inpatient revealed IgG lambda monoclonal gammopathy quantified at 1.6 x 0 0.5 g/dL. Urine immunofixation was positive for the same. The patient then had a kidney biopsy on 04/26/24, showing lambda light chain cast nephropathy. There was also lambda light chain proximal tibia neuropathy. A subset showed staining for Congo red, but there was no amyloidosis noted in the glomeruli/vessel/interstitium. The patient therefore appeared to have overt myeloma with light chain deposition disease causing progressive liver damage. She was therefore referred here for further evaluation and recommendations. The patient has known COPD, and had a CT chest done by pulmonology on 04/27/24 revealing a right upper lobe pulmonary nodule that had increased in size to 1.8 x 1.1 cm, versus 1.6 x 0.7 cm compared to prior scan in 02/11. Therefore PET scan was ordered by them. The patient had a bone marrow aspiration biopsy on 05/17/24, that conformed multiple myeloma, with 60% of marrow cellularity involved. Cytogenetics were normal. The patient was then initiated on RVD on 06/12/24 with daratumumab started with cycle 2. She most recently completed cycle 3 on 08/13, with velcade being held since 08/03 due to cytopenias. She also started hemodialysis in early 06/14. The patient was seen by radiation oncology, for the lung nodule, as well as PET scan had shown activity in this area. She was recommended SBRT, which she completed on 07/11/24. Labs for cycle 1 had shown a response with M protein stable at 2 g/dL, but lambda light chain declining to 15.8 g/L, versus 18.4 Patient presented to emergency room with complaints of worsening right lower extremity pain over the last 24 hours. Patient reports pain is in her right groin radiating down her leg, but her typical pain is typically more lateral t owards the hip. Denies low back pain, RLE numbness tingling, and leg swelling. Denies any known injury. Right femur, hip and pelvis x-rays showing moderate degenerative changes. Of note pt did have NM bone scan on 08/09/24 which showed no hip fx and no abnormal uptake to suggest osseous mets. Labs reviewed, CBC showing WBC 5.5, ANC 4.8, hemoglobin 7.8, platelets 273,000. Creatinine 8.27, GFR 5. Patient does reports she missed her last hemodialysis due to not feeling well. Bilirubin, LFTs WNL. Patient is afebrile. Review of Systems 10 point ROS is negative except as stated in the HPI Past Medical History Past Medical History: Chest Pain / Angina, COPD, Hypertension, Osteoarthritis (OA), Renal Disease, Thyroid Disorder Additional Past Medical History / Comment(s): Hx racing heart, "have a bad left valve", bronchitis, sinus problems, thyroid nodules-benign, occasional lower back pain, hx anemia with , "too much protein in bone marrow", stage 5 kidney disease, "Need right hip replacement but can't have it due to kidneys." "Have a bad right knee too." History of Any Multi-Drug Resistant Organisms: None Reported Past Surgical History: Cardiac Ablation, Orthopedic Surgery, Tubal Ligation Additional Past Surgical History / Comment(s): Cardiac ablation, L foot fracture/pinned, colonoscopies, right kidney biopsy. Past Anesthesia/Blood Transfusion Reactions: No Reported Reaction Additional Past Anesthesia/Blood Transfusion Reaction / Comm: Clausterphobic. Past Psychological History: No Psychological Hx Reported Smoking Status: Former smoker Past Alcohol Use History: None Reported Past Drug Use History: Marijuana - Past Family History Father Additional Family Medical History / Comment(s): Father is from an enlarged heart/iglesias's lung. Mother Family Medical History: No Reported History Medications and Allergies Home Medications Medication Instructions Recorded Confirmed Type Budesonide/Formoterol Fumarate 2 puff INHALATION RT-BID PRN 01/05/24 08/21/24 History [Breyna 80-4.5 Mcg Inhaler] Acetaminophen [Tylenol Extra 500 mg PO BID 05/11/24 08/21/24 History Strength] Acyclovir [Zovirax] 400 mg PO BID 08/21/24 08/21/24 History Ascorbic Acid [Vitamin C] 1,000 mg PO DAILY 08/21/24 08/21/24 History Aspirin EC [Ecotrin Low Dose] 81 mg PO DAILY 08/21/24 08/21/24 History Calcium Carbonate/Vitamin D3 1 tab PO DAILY 08/21/24 08/21/24 History [Calcium 600 mg-Vit D3 10 mcg (400 Unit)] Cholecalciferol [Vitamin D3 (125 125 mcg PO DAILY 08/21/24 08/21/24 History Mcg = 5000 Iu)] Cyanocobalamin [Vitamin B-12] 500 mcg PO DAILY 08/21/24 08/21/24 History Ferrous Sulfate [Feosol] 325 mg PO DAILY 08/21/24 08/21/24 History Folic Acid 0.8 mg PO DAILY 08/21/24 08/21/24 History Glucosam/Christiano-Msm1/C/Giovanny/Bosw 1 tab PO DAILY 08/21/24 08/21/24 History [Glucosamine-Chondroitin Tablet] Loratadine 10 mg PO DAILY 08/21/24 08/21/24 History Multivitamins, Thera [Multivitamin 1 tab PO DAILY 08/21/24 08/21/24 History (formulary)] [place]-3/Dha/Epa/Fish Oil [Fish Oil 1 cap PO DAILY 08/21/24 08/21/24 History 1,000 mg Softgel] Omeprazole 20 mg PO DAILY 08/21/24 08/21/24 History Vit C/E/Zn/Coppr/Lutein/Zeaxan 1 tab PO DAILY 08/21/24 08/21/24 History [Preservision Areds 2 Softgel] Vitamin E (Dl,Tocopheryl Acet) 400 unit PO DAILY 08/21/24 08/21/24 History [Vitamin E (400 Iu = 180 mg)] dexAMETHasone [Decadron] 8 mg PO DAILY 08/21/24 08/21/24 History Allergies Allergy/AdvReac Type Severity Reaction Status Date / Time bee venom protein (honey bee) Allergy Anaphylaxis Verified 08/21/24 10:40 chocolate Allergy Anaphylaxis Verified 08/21/24 19:54 codeine Allergy Anaphylaxis Verified 08/21/24 10:40 levofloxacin [From Levaquin] Allergy Unknown Verified 08/21/24 10:40 red dye Allergy Anaphylaxis Verified 08/21/24 10:40 strawberry Allergy Anaphylaxis Verified 08/21/24 10:40 tree nut [Nut] Allergy Anaphylaxis Verified 08/21/24 19:54 STEROIDS AdvReac Severe rage Uncoded 08/21/24 05:16 behavior-"almost killed my dog" Physical Exam Vitals: Vital Signs Temp Pulse Resp BP Pulse Ox 08/21/24 10:06 97.9 F 92 18 95/66 95 08/21/24 06:56 100 08/21/24 06:38 98 08/21/24 06:00 102 H 22 90/79 95 08/21/24 05:06 98.1 F 105 H 24 121/60 96 Intake and Output 08/20/24 08/21/24 08/21/24 22:59 06:59 14:59 Other: Weight 53.977 kg - Constitutional General appearance: mild distress - EENT Eyes: anicteric sclerae, EOMI ENT: hearing grossly normal - Respiratory breathing is even and unlabored - Cardiovascular skin warm and dry - Gastrointestinal General gastrointestinal: soft, no tenderness - Integumentary Integumentary: no cyanotic - Musculoskeletal approx 7cm tender right groin mass. No RLE edema noted - Psychiatric Psychiatric: A&O x's 3 Results CBC & Chem 7: 08/21/24 05:19 08/21/24 05:19 Labs: Abnormal Lab Results - Last 24 Hours (Table) 08/21/24 08/21/24 Range/Units 05:19 05:19 RBC 2.71 L (3.80-5.40) m/uL Hgb 7.8 L (11.4-16.0) gm/dL Hct 24.8 L (34.0-46.0) % RDW 19.4 H (11.5-15.5) % Lymphocytes # 0.2 L (1.0-4.8) k/uL Sodium 132 L (137-145) mmol/L Chloride 95 L (98-107) mmol/L Carbon Dioxide 20 L (22-30) mmol/L BUN 87 H (7-17) mg/dL Creatinine 8.27 H* (0.52-1.04) mg/dL Glucose 113 H (74-99) mg/dL Comments: right femur, hip/ pelvis x-rays, bone scan reviewed Assessment and Plan (1) End stage renal disease Current Visit: Yes Status: Acute Priority: High Code(s): N18.6 - END STAGE RENAL DISEASE SNOMED Code(s): 57330234 (2) Intractable pain Current Visit: Yes Status: Acute Priority: High Code(s): R52 - PAIN, UNSPECIFIED SNOMED Code(s): 71005494 (3) Multiple myeloma Current Visit: Yes Status: Acute Priority: High Code(s): C90.00 - MULTIPLE MYELOMA NOT HAVING ACHIEVED REMISSION SNOMED Code(s): 623284164 Plan: Intractable RLE pain: Presented to emergency room with complaints of worsening right lower extremity pain over the last 24 hours. Patient does have history of chronic right hip pain. She reports pain is in her right groin radiating down her leg, but typically pain is more lateral towards the hip. Denies low back pain, RLE numbness tingling, and leg swelling. Denies any known injury. -Right femur/hip and pelvis x-rays showing moderate degenerative changes. Of note pt did have NM bone scan on 08/09/24 which showed no hip fracture and no abnormal uptake to suggest osseous mets. -IV pain meds ordered -Palpable approx 7 cm mass noted in right groin. Will obtain right groin US to further evaluate Multiple myeloma: -Oncology history as dictated in the HPI -RVD was initiated on 06/12/24 with daratumumab started with cycle 2. She most recently completed cycle 3 on 08/13, with velcade being held since 08/03 due to cytopenias -Labs reviewed, CBC showing WBC 5.5, ANC 4.8, hemoglobin 7.8, platelets 273,000. -Anemia secondary to MM, chemo effects and ESRD. Continue to monitor CBC. Transfuse for hgb < 7, with irradiated blood products -Treatment will be on hold while inpt
[2024-08-21] MEDS: ACYCLOVIR 200 MG CAP PO SCH (21:11)
[2024-08-22] MEDS: IPRATROPIUM-ALBUTEROL 3 ML NEB INHALATION PRN (00:25)
[2024-08-22 00:27] LABS: Glucose,Whole Blood 91 mg/dL (70-110)
[2024-08-22] MEDS: FUROSEMIDE 10 MG/ML 10 ML VIAL IV STA (00:43)
--- NOTE | 2024-08-22 03:05 | XR ---
EXAM: XR Chest, 1 View CLINICAL HISTORY: ITS.REASON XR Reason: respiratory congestion TECHNIQUE: Frontal view of the chest. COMPARISON: 08/21/24 at 1311 hrs. FINDINGS: Lungs: Emphysema. No consolidation. Stable spiculated right upper lung opacity. Pleural space: Unremarkable. No pleural effusion or pneumothorax. Heart: Stable cardiomegaly. Stable vascular congestion. Bones/joints: No acute fracture. No dislocation. Tubes, lines and devices: Stable right-sided supraclavicular hemodialysis catheter. IMPRESSION: Stable exam.
[2024-08-22] MEDS: MIDODRINE 5 MG TAB PO PRN (03:08)
[2024-08-22] MEDS: HYDROmorphone 0.5 MG/0.5 ML SYRINGE IVP PRN (04:41)
[2024-08-22] MEDS: PANTOPRAZOLE 40 MG TABLET PO SCH (08:30)
[2024-08-22] MEDS: CYANOCOBALAMIN 500 MCG TAB PO SCH (08:30)
[2024-08-22] MEDS: VITAMIN E (DL,TOCOPHERYL ACET) 400 UNIT (180 MG) CAP PO SCH (08:30)
[2024-08-22] MEDS: FERROUS SULFATE 325 MG TAB PO SCH (08:30)
[2024-08-22] MEDS: CALCIUM CARB-VIT D 500 MG-5 MCG TAB PO SCH (08:30)
[2024-08-22] MEDS: ASPIRIN 81 MG PO SCH (08:30)
[2024-08-22] MEDS: CHOLECALCIFEROL 125 MCG (5000 IU) TABLET PO SCH (08:30)
[2024-08-22] MEDS: MULTIVITAMINS, THERA 1 EACH TAB PO SCH (08:31)
[2024-08-22] MEDS: VIT A,C & E-LUTEIN-MINERALS 1 EACH TAB PO SCH (08:31)
[2024-08-22] MEDS: FOLIC ACID 1 MG TAB PO SCH (08:31)
[2024-08-22] MEDS: LORATADINE 10 MG TAB PO SCH (08:31)
[2024-08-22] MEDS: ASCORBIC ACID 500 MG TAB PO SCH (08:31)
[2024-08-22] MEDS: dexAMETHasone 4 MG TAB PO SCH (08:31)
--- NOTE | 2024-08-22 08:36 | P.PN ---
Subjective Progress Note Date: 08/22/24 Principal diagnosis: Right inguinal pain. Patient is a 63-year-old ESRD patient complaining of right inguinal pain with nominal x-ray except for arthritis. The patient is being treated for multiple myeloma. Appreciate multiple consultants input. She has had multiple x-rays of the hip. She was scheduled to have appropriate knee and hip repair but was unable to do so was because of the sudden onset of renal failure which ended up being ESRD now dialysis dependent. Objective - Vital Signs Vital signs: Vital Signs Temp 98.5 F 08/22/24 07:30 Pulse 97 08/22/24 07:30 Resp 16 08/22/24 07:30 BP 134/80 08/22/24 07:30 Pulse Ox 97 08/22/24 07:30 FiO2 Intake & Output 08/21/24 08/22/24 08/22/24 18:59 06:59 18:59 Intake Total 100 900 Output Total 4775 Balance 100 -3875 Weight 55 kg 51 kg Intake: Intake, IV Titration 100 Amount Sodium Chloride 0.9% 1, 100 000 ml @ 50 mls/hr IV . Q20H [facility] Rx#:[id number] Oral 0 Hemodialysis 900 Output: Urine 675 Hemodialysis 2500 Hemodialysis Net Amount 1600 - Constitutional General appearance: Present: average body habitus, cooperative. Absent: disheveled - Neck Neck: Absent: lymphadenopathy - Respiratory Respiratory: bilateral: diminished - Cardiovascular Rhythm: regular Heart sounds: normal: S1, S2 Abnormal Heart Sounds: Absent: S3 Gallop - Gastrointestinal General gastrointestinal: Present: soft - Labs CBC & Chem 7: 08/21/24 05:19 08/21/24 05:19 Labs: Abnormal Lab Results - Last 24 Hours (Table) 08/21/24 Range/Units 18:40 POC Glucose (mg/dL) 112 H (70-110) mg/dL Assessment and Plan (1) COPD (chronic obstructive pulmonary disease) Current Visit: Yes Status: Acute Code(s): J44.9 - CHRONIC OBSTRUCTIVE PULMONARY DISEASE, UNSPECIFIED SNOMED Code(s): 75238202 (2) End stage renal disease Current Visit: Yes Status: Acute Priority: High Code(s): N18.6 - END STAGE RENAL DISEASE SNOMED Code(s): 88748631 (3) Intractable pain Current Visit: Yes Status: Acute Priority: High Code(s): R52 - PAIN, UNSPECIFIED SNOMED Code(s): 94375835 (4) Multiple myeloma Current Visit: Yes Status: Acute Priority: High Code(s): C90.00 - MULTIPLE MYELOMA NOT HAVING ACHIEVED REMISSION SNOMED Code(s): 045549570 (5) Right hip pain Current Visit: Yes Status: Acute Code(s): M25.551 - PAIN IN RIGHT HIP SNOMED Code(s): 79325003 Plan: Appreciate multiple consultants input. Dialysis treatment per nephrology. Holding off of chemotherapy for multiple myeloma at this time. Dilaudid seems to be holding the patient properly. Hopefully we can increase ambulation in the next 24 hours with appropriate pain control. If no better, consider orthopedic referral? Time with Patient: Greater than 30
[2024-08-22 08:41] LABS: Anisocytosis Slight; HGB 8.3 gm/dL (11.4-16.0); Hypochromasia Marked; MCH 29.1 pg (25.0-35.0); MCHC 30.9 g/dL (31.0-37.0); Macrocytosis Slight; Mean Platelet Volume 7.2; Platelet Count 326 k/uL (150-450); RBC 2.87 m/uL (3.80-5.40); RDW 19.3 % (11.5-15.5); WBC 7.5 k/uL (3.8-10.6)
[2024-08-22 08:54] LABS: ALT 19 U/L (4-34); AST 30 U/L (14-36); African American GFR (CKD) 12 (>60 ml/min/1.73 sqM); Albumin 3.5 g/dL (3.5-5.0); Albumin/Globulin Ratio 0.9; Alkaline Phosphatase 54 U/L (38-126); Anion Gap 17 mmol/L; Blood Urea Nitrogen 38 mg/dL (7-17); Calcium 8.9 mg/dL (8.4-10.2); Carbon Dioxide 25 mmol/L (22-30); Chloride 95 mmol/L (98-107); Globulin 3.7 g/dL; Glucose 85 mg/dL (74-99); Non-African American GFR(CKD) 11 (>60 ml/min/1.73 sqM); Potassium 5.1 mmol/L (3.5-5.1); Sodium 137 mmol/L (137-145); Total Bilirubin 0.3 mg/dL (0.2-1.3); Total Protein 7.2 g/dL (6.3-8.2)
[2024-08-22] MEDS ORDERED: NON FORMULARY DRUG (Glucosam/Chon-Msm1/C/Mang/Bosw [Glucosamine-Chondroitin Tablet] 1 EACH PO SCH (09:00)
[2024-08-22] MEDS ORDERED: NON FORMULARY DRUG (Omega-3/Dha/Epa/Fish Oil [Fish Oil 1,000 Mg Softgel] 1 EACH Capsule) PO SCH (09:00)
[2024-08-22] MEDS ORDERED: DOCUSATE 100 MG CAP PO SCH (09:00)
[2024-08-22] MEDS: ACETAMINOPHEN TAB 325 MG TAB PO PRN (09:33)
[2024-08-22 09:56] LABS: Hepatitis B Surface Antigen Nonreactive (Nonreactive)
[2024-08-22 11:57] LABS: Hepatitis B Surface AB- Quant 3.5 mIU/mL
--- NOTE | 2024-08-22 13:03 | P.PN ---
Subjective Patient is seen for follow-up for end-stage renal disease. Patient was dialyzed yesterday with UF of about 500 mL and subsequently developed worsening shortness of breath. Patient was therefore dialyzed again last night with UF of 1.0 L. Respiratory status has improved. Currently off of IV fluids. Status post pelvic CT for further evaluation of soft tissue mass noted in the right hip area Objective - Vital Signs Vital signs: Vital Signs Temp 98.1 F 08/22/24 12:01 Pulse 59 L 08/22/24 12:01 Resp 16 08/22/24 12:01 BP 101/66 08/22/24 12:01 Pulse Ox 94 L 08/22/24 12:01 FiO2 Intake & Output 08/21/24 08/22/24 08/22/24 18:59 06:59 18:59 Intake Total 100 900 118 Output Total 4775 50 Balance 100 -3875 68 Weight 55 kg 51 kg Intake: Intake, IV Titration 100 Amount Sodium Chloride 0.9% 1, 100 000 ml @ 50 mls/hr IV . Q20H [facility] Rx#:[id number] Oral 0 118 Hemodialysis 900 Output: Urine 675 50 Uretheral (Escoto) 50 Hemodialysis 2500 Hemodialysis Net Amount 1600 - Exam patient is awake, comfortable, no acute distress. Examination of the heart S1 and S2 Examination of the lungs bilateral breath sounds are heard Abdomen is soft nontender No edema noted in the lower extremities - Labs CBC & Chem 7: 08/22/24 08:11 08/22/24 08:11 Labs: Abnormal Lab Results - Last 24 Hours (Table) 08/21/24 08/22/24 08/22/24 Range/Units 18:40 08:11 08:11 RBC 2.87 L (3.80-5.40) m/uL Hgb 8.3 L (11.4-16.0) gm/dL Hct 27.0 L (34.0-46.0) % MCHC 30.9 L (31.0-37.0) g/dL RDW 19.3 H (11.5-15.5) % Chloride 95 L (98-107) mmol/L BUN 38 H (7-17) mg/dL Creatinine 4.15 H (0.52-1.04) mg/dL POC Glucose (mg/dL) 112 H (70-110) mg/dL Assessment and Plan Assessment: 1. End-stage renal disease on hemodialysis via right IJ permacath. 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 2. Right leg pain with soft tissue mass identified near the hip area. Status post pelvic CT this morning 3. Anemia, multifactorial associated with underlying multiple myeloma, chemotherapy and renal failure 4. Pulmonary nodule Plan: Repeat hemodialysis in a.m. Continue off of IV fluids Follow-up on the pelvic CT scan
--- NOTE | 2024-08-22 13:36 | CT ---
EXAMINATION TYPE: CT pelvis wo con DATE OF EXAM: 08/22/2024 12:17 PM COMPARISON: None. CLINICAL INDICATION: Female, 63 years old with history of right groin mass, as noted on groin US, RT inguinal mass, as noted on groin US Hx myeloma TECHNIQUE: Axial images were obtained from above the iliac crests to the pubic rami in the axial plan e at 5 mm thick sections. Reconstructed images are reviewed on the computer in the coronal plane. CONTRAST: 0 mL of Isovue 300. Study performed without Oral Contrast DLP: 262.70 mGycm, Automated exposure control for dose reduction was used. FINDINGS: CT PELVIS: Vascular calcifications within the aorta. Small amount of free fluid is within the dependent pelvis. Loops of bowel within the pelvis are normal. Appendix: Normal as visualized. Urinary bladder: Decompressed with a Escoto catheter. Air-filled urinary bladder is evident Genitourinary structures: Uterus appears unremarkable. Adnexal regions are normal. Osseous structures: No suspicious lytic or sclerotic lesions. Attention was pain to the right inguinal region. There is a smooth bordered homogenous isodense struc ture in the anterior right inguinal region. This measures 39 Hounsfield units. Adenopathy is favored. There is a hypodense area measuring 0.9 cm within the anterior thigh musculature left inguinal region , example image series 8 image 39. Hematoma could be considered. IMPRESSION: 1. Right inguinal mass lateral to the vascular structures appears homogenous may be related to a lar ge lymph node. 2. Note is made of a hypodensity within the anterior left inguinal thigh musculature. Considerably he matoma. Abscess could be within the differential. [facility], Workstation: [facility], 08/22/2024 1:33 PM
[2024-08-22 20:23] LABS: Glucose,Whole Blood 157 mg/dL (70-110)
[2024-08-22 20:34] LABS: Anisocytosis Slight; Basophils % (A) 0 %; Eosinophils % (A) 0 %; HCT 27.6 % (34.0-46.0); HGB 8.3 gm/dL (11.4-16.0); Hypochromasia Marked; Lymphocytes # (A) 0.2 k/uL (1.0-4.8); Lymphocytes % (A) 2 %; MCH 27.9 pg (25.0-35.0); Monocytes # (A) 0.2 k/uL (0-1.0); Monocytes % (A) 3 %; Neutrophils # (A) 8.1 k/uL (1.3-7.7); Neutrophils % (A) 94 %; Platelet Count 366 k/uL (150-450); RBC 2.97 m/uL (3.80-5.40); RDW 19.3 % (11.5-15.5); WBC 8.6 k/uL (3.8-10.6)
[2024-08-22 20:54] LABS: ALT 20 U/L (4-34); AST 30 U/L (14-36); African American GFR (CKD) 10 (>60 ml/min/1.73 sqM); Albumin 3.3 g/dL (3.5-5.0); Albumin/Globulin Ratio 0.9; Alkaline Phosphatase 56 U/L (38-126); Anion Gap 15 mmol/L; Blood Urea Nitrogen 48 mg/dL (7-17); Calcium 8.8 mg/dL (8.4-10.2); Carbon Dioxide 22 mmol/L (22-30); Chloride 91 mmol/L (98-107); Globulin 3.6 g/dL; Glucose 157 mg/dL (74-99); Magnesium 1.8 mg/dL (1.6-2.3); Non-African American GFR(CKD) 9 (>60 ml/min/1.73 sqM); Potassium 5.6 mmol/L (3.5-5.1); Sodium 128 mmol/L (137-145); Total Bilirubin 0.2 mg/dL (0.2-1.3); Total Protein 6.9 g/dL (6.3-8.2)
[2024-08-22] MEDS: DILTIAZEM DRIP BOLUS FROM BAG 1 MG SOLN IV STA (21:51)
[2024-08-22] MEDS: DILTIAZEM 125 MG in SODIUM CHLORIDE 0.9% 100 ML IV SCH (21:57)
[2024-08-22] MEDS: guaiFENesin 600 MG TABLET.ER PO PRN (22:20)
[2024-08-22 22:50] LABS: T4, Free (Free Thyroxine) 1.48 ng/dL (0.78-2.19)
[2024-08-23 06:47] LABS: Anisocytosis Slight; HCT 26.8 % (34.0-46.0); HGB 8.2 gm/dL (11.4-16.0); Hypochromasia Moderate; MCH 28.6 pg (25.0-35.0); MCHC 30.4 g/dL (31.0-37.0); MCV 93.9 fL (80.0-100.0); Macrocytosis Slight; Mean Platelet Volume 7.7; Platelet Count 357 k/uL (150-450); RBC 2.86 m/uL (3.80-5.40); RDW 19.3 % (11.5-15.5); WBC 7.8 k/uL (3.8-10.6)
[2024-08-23 07:13] LABS: ALT 18 U/L (4-34); AST 23 U/L (14-36); African American GFR (CKD) 8 (>60 ml/min/1.73 sqM); Albumin 2.9 g/dL (3.5-5.0); Alkaline Phosphatase 46 U/L (38-126); Anion Gap 14 mmol/L; Blood Urea Nitrogen 57 mg/dL (7-17); Calcium 8.8 mg/dL (8.4-10.2); Carbon Dioxide 24 mmol/L (22-30); Chloride 91 mmol/L (98-107); Glucose 99 mg/dL (74-99); Non-African American GFR(CKD) 7 (>60 ml/min/1.73 sqM); Potassium 5.7 mmol/L (3.5-5.1); Sodium 129 mmol/L (137-145); Total Bilirubin 0.3 mg/dL (0.2-1.3); Total Protein 6.3 g/dL (6.3-8.2)
--- NOTE | 2024-08-23 08:30 | P.PN ---
Subjective Progress Note Date: 08/23/24 This is a 63-year-old female who presented to the emergency department with complaints of right lower extremity pain. Patient has a history of end-stage renal disease, as well as lung cancer and a recent diagnosis of multiple myeloma. Patient denies any trauma to leg. She reports she has had similar danial n in the past in her right lower extremity but workup has been normal. XR's showing arthritis on admission. Patient maintained on hemodialysis as an outpatient, is due for dialysis today. 08/23/2024 Patient seen and evaluated laying in bed this morning. Last night she developed SVT and was transferred to the cardiac floor. Cardiology has been consulted and the patient was started on a Cardizem drip. Patient denies any shortness of breath or chest pain at time of SVT last night. Patient had a CT of the pelvis yesterday which shows possible enlarged lymph node in the right inguinal area. Objective - Vital Signs Vital signs: Vital Signs Temp 98.3 F 08/23/24 04:00 Pulse 126 H 08/23/24 04:00 Resp 22 08/23/24 04:00 BP 94/67 08/23/24 04:00 Pulse Ox 96 08/23/24 04:00 FiO2 Intake & Output 08/22/24 08/23/24 08/23/24 18:59 06:59 18:59 Intake Total 894 Output Total 150 Balance 744 Weight 53.5 kg Intake: Oral 894 Output: Urine 150 Uretheral (Escoto) 150 Other: Voiding Method Indwelling Catheter Indwelling Catheter - Constitutional General appearance: Present: cooperative, no acute distress - EENT Eyes: Present: PERRLA - Neck Neck: Present: normal ROM. Absent: lymphadenopathy, rigidity - Respiratory Respiratory: bilateral: diminished - Cardiovascular Rhythm: regular Heart sounds: normal: S1, S2 - Gastrointestinal General gastrointestinal: Present: soft. Absent: tenderness - Integumentary Integumentary: Present: normal, normal turgor - Psychiatric Psychiatric: Present: A&O x's 3 - Labs CBC & Chem 7: 08/23/24 06:12 08/23/24 06:12 Labs: Abnormal Lab Results - Last 24 Hours (Table) 08/22/24 08/22/24 08/22/24 Range/Units 08:11 08:11 20:05 RBC 2.87 L (3.80-5.40) m/uL Hgb 8.3 L (11.4-16.0) gm/dL Hct 27.0 L (34.0-46.0) % MCHC 30.9 L (31.0-37.0) g/dL RDW 19.3 H (11.5-15.5) % Neutrophils # (1.3-7.7) k/uL Lymphocytes # (1.0-4.8) k/uL D-Dimer (<0.60) mg/L FEU Sodium (137-145) mmol/L Potassium (3.5-5.1) mmol/L Chloride 95 L (98-107) mmol/L BUN 38 H (7-17) mg/dL Creatinine 4.15 H (0.52-1.04) mg/dL Glucose (74-99) mg/dL POC Glucose (mg/dL) 157 H (70-110) mg/dL Albumin (3.5-5.0) g/dL TSH (0.465-4.680) mIU/L 08/22/24 08/22/24 08/22/24 Range/Units 20:24 20:24 20:24 RBC 2.97 L (3.80-5.40) m/uL Hgb 8.3 L (11.4-16.0) gm/dL Hct 27.6 L (34.0-46.0) % MCHC 30.0 L (31.0-37.0) g/dL RDW 19.3 H (11.5-15.5) % Neutrophils # 8.1 H (1.3-7.7) k/uL Lymphocytes # 0.2 L (1.0-4.8) k/uL D-Dimer 1.83 H (<0.60) mg/L FEU Sodium 128 L (137-145) mmol/L Potassium 5.6 H (3.5-5.1) mmol/L Chloride 91 L (98-107) mmol/L BUN 48 H (7-17) mg/dL Creatinine 4.77 H (0.52-1.04) mg/dL Glucose 157 H (74-99) mg/dL POC Glucose (mg/dL) (70-110) mg/dL Albumin 3.3 L (3.5-5.0) g/dL TSH 0.428 L (0.465-4.680) mIU/L 08/23/24 08/23/24 Range/Units 06:12 06:12 RBC 2.86 L (3.80-5.40) m/uL Hgb 8.2 L (11.4-16.0) gm/dL Hct 26.8 L (34.0-46.0) % MCHC 30.4 L (31.0-37.0) g/dL RDW 19.3 H (11.5-15.5) % Neutrophils # (1.3-7.7) k/uL Lymphocytes # (1.0-4.8) k/uL D-Dimer (<0.60) mg/L FEU Sodium 129 L (137-145) mmol/L Potassium 5.7 H (3.5-5.1) mmol/L Chloride 91 L (98-107) mmol/L BUN 57 H (7-17) mg/dL Creatinine 5.92 H (0.52-1.04) mg/dL Glucose (74-99) mg/dL POC Glucose (mg/dL) (70-110) mg/dL Albumin 2.9 L (3.5-5.0) g/dL TSH (0.465-4.680) mIU/L Assessment and Plan (1) Lung cancer Current Visit: Yes Status: Acute Code(s): C34.90 - MALIGNANT NEOPLASM OF UNSP PART OF UNSP BRONCHUS OR LUNG SNOMED Code(s): 492375738 (2) Multiple myeloma Current Visit: Yes Status: Acute Priority: High Code(s): C90.00 - MULTIPLE MYELOMA NOT HAVING ACHIEVED REMISSION SNOMED Code(s): 944391853 (3) Intractable pain Current Visit: Yes Status: Acute Priority: High Code(s): R52 - PAIN, UNSPECIFIED SNOMED Code(s): 12118917 (4) COPD (chronic obstructive pulmonary disease) Current Visit: Yes Status: Acute Code(s): J44.9 - CHRONIC OBSTRUCTIVE PULMONARY DISEASE, UNSPECIFIED SNOMED Code(s): 98758342 (5) End stage renal disease Current Visit: Yes Status: Acute Priority: High Code(s): N18.6 - END STAGE RENAL DISEASE SNOMED Code(s): 10519519 (6) Paroxysmal SVT (supraventricular tachycardia) Current Visit: Yes Status: Acute Code(s): I47.10 - SUPRAVENTRICULAR TACHYCARDIA, UNSPECIFIED SNOMED Code(s): 51863954 Plan: Appreciate multiple consultants. Check CBC and CMP in the morning. Patient seen and evaluated by nurse practitioner, physician in agreement with plan.
--- NOTE | 2024-08-23 10:58 | P.CRDCN ---
History of Present Illness Consult date: 08/23/24 Reason for Consult (text): High heart rate History of present illness: This is a 63-year-old female patient of Dr. Liu with past medical history of end-stage renal disease on hemodialysis, multiple myeloma, lung nodule. Patient presented to the hospital due to right groin pain and mass. We have been asked to evaluate the patient for high heart rate. Patient denies having any chest pain no shortness of breath no palpitations no cough no fever. Patient does however appear to be short of breath. During the night, cardiology was cont acted and patient was started on Cardizem drip for atrial flutter. Patient is poor historian unable to give accurate information. Last chemotherapy was sometime in July. Blood pressure 94/67, heart rate 126, pulse ox 96% on 5 L nasal cannula. Patient is currently on a Cardizem drip at 5 mg/h status post 5 mg IV bolus. -EKG: #1 atrial flutter 147 bpm, #2 atrial flutter 87 bpm -Chest x-ray: Stable exam -CT pelvis: Right inguinal mass lateral to the vascular structures appears homogenous may be related to a large lymph node. Hypodensity within the anterior left inguinal thigh musculature consider hematoma. -Laboratory studies: WBC 7.8, hemoglobin 8.2, platelet count 357. Sodium 129, potassium 5.7, BUN 57, creatinine 5.92. TSH 0.428 with normal free T4 of 1.48. Magnesium 1.8. -Home cardiac medications: Aspirin 81 mg daily. -Echocardiogram performed in the office on 04/04/2024 revealed normal EF, mild MR, mild to moderate TR, estimated RVSP 47 mmHg. Lexiscan Cardiolite stress test performed in the office on 05/01/2024 revealed normal EF and normal study. Review Of Systems: At the time of my exam: Unable to obtain accurate information due to patient's mental status. Physical examination: Gen: This is a 63-year-old female with mild accessory muscle usage VS: reviewed HEENT: Head is atraumatic, normocephalic. Pupils equal, round. Sclerae is anicteric. NECK: Supple. No JVD. LUNGS: Diminished breath sounds. Mild intercostal retractions. HEART: Regular rate and rhythm. No murmur. ABDOMEN: Soft No tenderness. EXTREMITIES: + Right inguinal mass, no pedal edema. No calf tenderness. NEUROLOGICAL: Patient is awake, oriented to person. Assessment: Right groin mass, possible large lymph node Metabolic encephalopathy New onset typical atrial flutter End-stage renal disease on hemodialysis Multiple myeloma Lung nodule Plan: Resume patient's home cardiac medications Start patient on metoprolol 25 mg twice daily Attempt to wean patient off Cardizem drip Obtain 2-D echocardiogram and Doppler study to assess cardiac structure and function Further recommendations to follow based upon clinical course Thank you kindly for this consultation. Nurse practitioner note has been reviewed, I agree with documented findings and plan of care. Patient was seen and examined. Past Medical History Past Medical History: Chest Pain / Angina, COPD, Hypertension, Osteoarthritis (OA), Renal Disease, Thyroid Disorder Additional Past Medical History / Comment(s): Hx racing heart, "have a bad left valve", bronchitis, sinus problems, thyroid nodules-benign, occasional lower back pain, hx anemia with , "too much protein in bone marrow", stage 5 kidney disease, "Need right hip replacement but can't have it due to kidneys." "Have a bad right knee too." History of Any Multi-Drug Resistant Organisms: None Reported Past Surgical History: Cardiac Ablation, Orthopedic Surgery, Tubal Ligation Additional Past Surgical History / Comment(s): Cardiac ablation, L foot fracture/pinned, colonoscopies, right kidney biopsy. Past Anesthesia/Blood Transfusion Reactions: No Reported Reaction Additional Past Anesthesia/Blood Transfusion Reaction / Comment(s): Clausterphobic. Past Psychological History: No Psychological Hx Reported Smoking Status: Former smoker Past Alcohol Use History: None Reported Past Drug Use History: Marijuana - Past Family History Father Additional Family Medical History / Comment(s): Father is from an enlarged heart/iglesias's lung. Mother Family Medical History: No Reported History Medications and Allergies Home Medications Medication Instructions Recorded Confirmed Type Budesonide/Formoterol Fumarate 2 puff INHALATION RT-BID PRN 01/05/24 08/21/24 History [Breyna 80-4.5 Mcg Inhaler] Acetaminophen [Tylenol Extra 500 mg PO BID 05/11/24 08/21/24 History Strength] Acyclovir [Zovirax] 400 mg PO BID 08/21/24 08/21/24 History Ascorbic Acid [Vitamin C] 1,000 mg PO DAILY 08/21/24 08/21/24 History Aspirin EC [Ecotrin Low Dose] 81 mg PO DAILY 08/21/24 08/21/24 History Calcium Carbonate/Vitamin D3 1 tab PO DAILY 08/21/24 08/21/24 History [Calcium 600 mg-Vit D3 10 mcg (400 Unit)] Cholecalciferol [Vitamin D3 (125 125 mcg PO DAILY 08/21/24 08/21/24 History Mcg = 5000 Iu)] Cyanocobalamin [Vitamin B-12] 500 mcg PO DAILY 08/21/24 08/21/24 History Ferrous Sulfate [Feosol] 325 mg PO DAILY 08/21/24 08/21/24 History Folic Acid 0.8 mg PO DAILY 08/21/24 08/21/24 History Glucosam/Christiano-Msm1/C/Giovanny/Bosw 1 tab PO DAILY 08/21/24 08/21/24 History [Glucosamine-Chondroitin Tablet] Loratadine 10 mg PO DAILY 08/21/24 08/21/24 History Multivitamins, Thera [Multivitamin 1 tab PO DAILY 08/21/24 08/21/24 History (formulary)] [place]-3/Dha/Epa/Fish Oil [Fish Oil 1 cap PO DAILY 08/21/24 08/21/24 History 1,000 mg Softgel] Omeprazole 20 mg PO DAILY 08/21/24 08/21/24 History Vit C/E/Zn/Coppr/Lutein/Zeaxan 1 tab PO DAILY 08/21/24 08/21/24 History [Preservision Areds 2 Softgel] Vitamin E (Dl,Tocopheryl Acet) 400 unit PO DAILY 08/21/24 08/21/24 History [Vitamin E (400 Iu = 180 mg)] dexAMETHasone [Decadron] 8 mg PO DAILY 08/21/24 08/21/24 History Allergies Allergy/AdvReac Type Severity Reaction Status Date / Time bee venom protein (honey bee) Allergy Anaphylaxis Verified 08/21/24 10:40 chocolate Allergy Anaphylaxis Verified 08/21/24 19:54 codeine Allergy Anaphylaxis Verified 08/21/24 10:40 levofloxacin [From Levaquin] Allergy Unknown Verified 08/21/24 10:40 red dye Allergy Anaphylaxis Verified 08/21/24 10:40 strawberry Allergy Anaphylaxis Verified 08/21/24 10:40 tree nut [Nut] Allergy Anaphylaxis Verified 08/21/24 19:54 STEROIDS AdvReac Severe rage Uncoded 08/21/24 05:16 behavior-"almost killed my dog" Physical Exam Vitals: Vital Signs Temp Pulse Resp BP BP Pulse Ox 08/23/24 04:00 98.3 F 126 H 22 94/67 96 08/22/24 23:48 98.5 F 95 16 94/54 95 08/22/24 22:04 115/62 08/22/24 21:50 98.5 F 148 H 24 107/80 96 08/22/24 20:00 147 H 08/22/24 19:30 98.4 F 145 H 22 112/76 96 08/22/24 12:01 98.1 F 59 L 16 101/66 94 L Intake and Output 08/22/24 08/23/24 08/23/24 22:59 06:59 14:59 Intake Total 118 Output Total 100 Balance 18 Intake: Oral 118 Output: Urine 100 Uretheral (Escoto) 100 Other: Voiding Method Indwelling Catheter Weight 53.5 kg Results 08/23/24 06:12 08/23/24 06:12 Cardiac Enzymes 08/22/24 08/22/24 08/23/24 Range/Units 08:11 20:24 06:12 AST 30 30 23 (14-36) U/L CBC 08/22/24 08/22/24 08/23/24 Range/Units 08:11 20:24 06:12 WBC 7.5 8.6 7.8 (3.8-10.6) k/uL RBC 2.87 L 2.97 L 2.86 L (3.80-5.40) m/uL Hgb 8.3 L 8.3 L 8.2 L (11.4-16.0) gm/dL Hct 27.0 L 27.6 L 26.8 L (34.0-46.0) % Plt Count 326 366 357 (150-450) k/uL Comprehensive Metabolic Panel 08/22/24 08/22/24 08/23/24 Range/Units 08:11 20:24 06:12 Sodium 137 128 L 129 L (137-145) mmol/L Potassium 5.1 5.6 H 5.7 H (3.5-5.1) mmol/L Chloride 95 L 91 L 91 L (98-107) mmol/L Carbon Dioxide 25 22 24 (22-30) mmol/L BUN 38 H 48 H 57 H (7-17) mg/dL Creatinine 4.15 H 4.77 H 5.92 H (0.52-1.04) mg/dL Glucose 85 157 H 99 (74-99) mg/dL Calcium 8.9 8.8 8.8 (8.4-10.2) mg/dL AST 30 30 23 (14-36) U/L ALT 19 20 18 (4-34) U/L Alkaline Phosphatase 54 56 46 (38-126) U/L Total Protein 7.2 6.9 6.3 (6.3-8.2) g/dL Albumin 3.5 3.3 L 2.9 L (3.5-5.0) g/dL Current Medications Generic Name Dose Route Start Last Admin Trade Name Freq PRN Reason Stop Dose Admin Acetaminophen 650 mg 08/21/24 06:45 08/22/24 09:33 Acetaminophen Tab 325 Mg Tab PO 650 mg Q6HR PRN Administration Mild Pain or Fever > 100.5 Acyclovir 400 mg 08/21/24 21:00 08/22/24 22:31 Acyclovir 200 Mg Cap PO 400 mg BID EVELYN Administration Albuterol/Ipratropium 3 ml 08/21/24 06:47 08/22/24 00:25 Ipratropium-Albuterol 3 Ml Neb INHALATION 3 ml RT-QID PRN Administration Shortness Of Breath Or Wheezing Ascorbic Acid 1,000 mg 08/22/24 09:00 08/22/24 08:31 Ascorbic Acid 500 Mg Tab PO 1,000 mg DAILY EVELYN Administration Aspirin 81 mg 08/22/24 09:00 08/22/24 08:30 Aspirin 81 Mg PO 81 mg DAILY EVELYN Administration Budesonide/Formoterol Fumarate 2 puff 08/21/24 08:18 Symbicort 80-4.5 Mcg Inhaler INHALATION BID PRN COPD Calcium Carbonate 1 each 08/22/24 09:00 08/22/24 08:30 Calcium Carb-Vit D 500 Mg-5 Mcg Tab PO 1 each DAILY EVELYN Administration Cholecalciferol 125 mcg 08/22/24 09:00 08/22/24 08:30 Cholecalciferol 125 Mcg (5000 Iu) Tablet PO 125 mcg DAILY EVELYN Administration Cyanocobalamin 500 mcg 08/22/24 09:00 08/22/24 08:30 Cyanocobalamin 500 Mcg Tab PO 500 mcg DAILY EVELYN Administration Dexamethasone 8 mg 08/22/24 09:00 08/22/24 08:31 Dexamethasone 4 Mg Tab PO 8 mg DAILY EVELYN Administration Ferrous Sulfate 325 mg 08/22/24 09:00 08/22/24 08:30 Ferrous Sulfate 325 Mg Tab PO 325 mg DAILY EVELYN Administration Folic Acid 1 mg 08/22/24 09:00 08/22/24 08:31 Folic Acid 1 Mg Tab PO 1 mg DAILY EVELYN Administration Guaifenesin 1,200 mg 08/22/24 22:06 08/22/24 22:20 Guaifenesin 600 Mg Tablet.Er PO 1,200 mg Q12HR PRN Administration Cough Hydromorphone HCl 0.5 mg 08/21/24 06:45 08/23/24 02:12 Hydromorphone 0.5 Mg/0.5 Ml Syringe IVP 0.5 mg Q3HR PRN Administration Moderate Pain (Scale 4 to 6) Hydromorphone HCl 1 mg 08/21/24 06:45 08/23/24 03:59 Hydromorphone 1 Mg/Ml 1 Ml Syringe IVP 1 mg Q3HR PRN Administration Severe Pain (Scale 7 to 10) Diltiazem HCl 125 mg/ Sodium 125 mls @ 5 mls/hr 08/22/24 21:45 08/22/24 21:57 Chloride IV 5 mg/hr .Q24H EVELYN 5 mls/hr Administration 5 MG/HR Loratadine 10 mg 08/22/24 09:00 08/22/24 08:31 Loratadine 10 Mg Tab PO 10 mg DAILY EVELYN Administration Multivitamins 1 each 08/22/24 09:00 08/22/24 08:31 Multivitamins, Thera 1 Each Tab PO 1 each DAILY EVELYN Administration Multivitamins/Minerals 1 each 08/22/24 09:00 08/22/24 08:31 Vit A,C & H-Etcujm-Oadqfalh 1 Each Tab PO 1 each DAILY EVELYN Administration Naloxone HCl 0.2 mg 08/21/24 06:45 Naloxone 0.4 Mg/Ml 1 Ml Vial IV Q2M PRN Opioid Reversal Pantoprazole Sodium 40 mg 08/22/24 09:00 08/22/24 08:30 Pantoprazole 40 Mg Tablet PO 40 mg DAILY EVELYN Administration Vitamin E 400 unit 08/22/24 09:00 08/22/24 08:30 Vitamin E (Dl,Tocopheryl Acet) 400 Unit (180 Mg) Cap PO 400 unit DAILY EVELYN Administration Intake and Output 08/22/24 08/23/24 08/23/24 22:59 06:59 14:59 Intake Total 118 Output Total 100 Balance 18 Intake: Oral 118 Output: Urine 100 Uretheral (Escoto) 100 Other: Voiding Method Indwelling Catheter Weight 53.5 kg 08/23/24 06:12 08/23/24 06:12
--- NOTE | 2024-08-23 11:56 | P.PN ---
Subjective Patient is seen for follow-up for end-stage renal disease. Patient is seen on hemodialysis today. Nursing staff reporting some episodes of confusion. Pelvic CT shows right inguinal mass most likely lymph node. Objective - Vital Signs Vital signs: Vital Signs Temp 99.1 F 08/23/24 08:35 Pulse 68 08/23/24 08:35 Resp 16 08/23/24 08:35 BP 128/59 08/23/24 08:35 Pulse Ox 97 08/23/24 09:00 FiO2 Intake & Output 08/22/24 08/23/24 08/23/24 18:59 06:59 18:59 Intake Total 894 Output Total 150 Balance 744 Weight 53.5 kg Intake: Oral 894 Output: Urine 150 Uretheral (Esc[place]) 150 Other: Voiding Method Indwelling Catheter Indwelling Catheter Indwelling Catheter - Exam patient is awake, no acute distress. Examination of the heart S1 and S2 Examination of the lungs bilateral breath sounds are heard Abdomen is soft nontender No edema noted in the lower extremities - Labs CBC & Chem 7: 08/23/24 06:12 08/23/24 06:12 Labs: Abnormal Lab Results - Last 24 Hours (Table) 08/22/24 08/22/24 08/22/24 Range/Units 20:05 20:24 20:24 RBC 2.97 L (3.80-5.40) m/uL Hgb 8.3 L (11.4-16.0) gm/dL Hct 27.6 L (34.0-46.0) % MCHC 30.0 L (31.0-37.0) g/dL RDW 19.3 H (11.5-15.5) % Neutrophils # 8.1 H (1.3-7.7) k/uL Lymphocytes # 0.2 L (1.0-4.8) k/uL D-Dimer (<0.60) mg/L FEU Sodium 128 L (137-145) mmol/L Potassium 5.6 H (3.5-5.1) mmol/L Chloride 91 L (98-107) mmol/L BUN 48 H (7-17) mg/dL Creatinine 4.77 H (0.52-1.04) mg/dL Glucose 157 H (74-99) mg/dL POC Glucose (mg/dL) 157 H (70-110) mg/dL Albumin 3.3 L (3.5-5.0) g/dL TSH 0.428 L (0.465-4.680) mIU/L 08/22/24 08/23/24 08/23/24 Range/Units 20:24 06:12 06:12 RBC 2.86 L (3.80-5.40) m/uL Hgb 8.2 L (11.4-16.0) gm/dL Hct 26.8 L (34.0-46.0) % MCHC 30.4 L (31.0-37.0) g/dL RDW 19.3 H (11.5-15.5) % Neutrophils # (1.3-7.7) k/uL Lymphocytes # (1.0-4.8) k/uL D-Dimer 1.83 H (<0.60) mg/L FEU Sodium 129 L (137-145) mmol/L Potassium 5.7 H (3.5-5.1) mmol/L Chloride 91 L (98-107) mmol/L BUN 57 H (7-17) mg/dL Creatinine 5.92 H (0.52-1.04) mg/dL Glucose (74-99) mg/dL POC Glucose (mg/dL) (70-110) mg/dL Albumin 2.9 L (3.5-5.0) g/dL TSH (0.465-4.680) mIU/L Assessment and Plan Assessment: 1. End-stage renal disease on hemodialysis via right IJ permacath. 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 2. Right leg pain with soft tissue mass identified near the hip area. Status post pelvic CT which suggests an enlarged lymph node 3. Anemia, multifactorial associated with underlying multiple myeloma, chemotherapy and renal failure 4. Pulmonary nodule 5. Volume overload Plan: Hemodialysis today Obtain blood cultures during dialysis due to low-grade temp Oncology considering biopsy of the pulmonary nodule
[2024-08-23 11:57] LABS: Anisocytosis Slight; Basophils % (A) 0 %; Eosinophils % (A) 0 %; HCT 28.3 % (34.0-46.0); HGB 8.7 gm/dL (11.4-16.0); Hypochromasia Marked; Lymphocytes # (A) 0.3 k/uL (1.0-4.8); Lymphocytes % (A) 4 %; MCH 28.9 pg (25.0-35.0); MCHC 30.9 g/dL (31.0-37.0); MCV 93.6 fL (80.0-100.0); Macrocytosis Slight; Mean Platelet Volume 7.1; Monocytes # (A) 0.2 k/uL (0-1.0); Monocytes % (A) 2 %; Neutrophils % (A) 93 %; Platelet Count 404 k/uL (150-450); RBC 3.02 m/uL (3.80-5.40); RDW 19.3 % (11.5-15.5); WBC 8.5 k/uL (3.8-10.6)
[2024-08-23 12:02] LABS: Glucose,Whole Blood 89 mg/dL (70-110)
[2024-08-23 12:09] LABS: ABG Base Excess 2.2 mmol/L; ABG HCO3 29 mmol/L (21-25); ABG Oxygen Saturation 99.9 % (94-97); ABG PCO2 54 mmHg (35-45); ABG PH 7.33 (7.35-7.45); ABG PO2 190 mmHg (83-108); ABG TCO2 30 mmol/L (19-24); Allen Test Performed? Yes
--- NOTE | 2024-08-23 12:52 | XR ---
EXAMINATION TYPE: XR chest 1V portable DATE OF EXAM: 08/23/2024 12:19 PM COMPARISON: 08/22/2024 CLINICAL INDICATION: Female, 63 years old with history of SOB, , FINDINGS: Right-sided double-lumen hemodialysis catheter with tips at the mid SVC level. Heart is mil d to moderately enlarged. Diffuse interstitial opacity is similar. Trace left pleural effusion appear s to have developed. Hyperinflation. Known spiculated nodule right upper lobe. IMPRESSION: 1. Correlate for COPD and ongoing pulmonary vascular congestion. A trace left pleural effusion appear s to have developed. 2. Known spiculated right upper lobe nodule. [facility], , 08/23/2024 12:49 PM
[2024-08-23 13:24] LABS: INR 0.9 (<1.2); Prothrombin Time 10.4 sec (10.0-12.5)
[2024-08-23 13:39] LABS: Appearance,Urine Clear (Clear); Bacteria,Urine Rare /hpf; Bilirubin,Urine Negative (Negative); Blood,Urine Moderate (Negative); Color,Urine Colorless; Glucose,Urine (UA) Negative (Negative); Ketones,Urine Negative (Negative); Leukocyte Esterase,Urine Small (Negative); Nitrite,Urine Negative (Negative); Protein,Urine 2+ (Negative); RBC,Urine 1 /hpf (0-5); Specific Gravity,Urine 1.013 (1.001-1.035); Squamous Epithelial Cell,Urine <1 /hpf (0-4); Urobilinogen,Urine <2.0 mg/dL (<2.0); WBC,Urine 7 /hpf (0-5)
[2024-08-23 13:43] LABS: Glucose,Whole Blood 82 mg/dL (70-110)
[2024-08-23 14:01] LABS: Influenza A Not Detected (Not Detectd); Influenza B Not Detected (Not Detectd); RSV Not Detected (Not Detectd)
[2024-08-23] MEDS: METOPROLOL TARTRATE 25 MG TAB PO SCH (14:28)
[2024-08-23] MEDS: NOREPINEPHRINE 8 MG in SODIUM CHLORIDE 0.9% 250 ML IV SCH (15:15)
[2024-08-23] MEDS: MORPHINE SULFATE 4 MG/ML SYRINGE IVP STA (15:15)
[2024-08-23] MEDS: LORazepam 2 MG/ML INJ IV STA (15:16)
[2024-08-23] MEDS: LACTATED RINGERS 1,000 ML BAG IV STA (15:38)
[2024-08-23] MEDS: LACTATED RINGERS 1,000 ML IV SCH (15:40)
[2024-08-23] MEDS ORDERED: ALBUTEROL HFA INHALER INHALATION SCH (16:00)
[2024-08-23 16:02] LABS: ABG Base Excess 1.2 mmol/L; ABG HCO3 28 mmol/L (21-25); ABG Oxygen Saturation >100.0 % (94-97); ABG PCO2 60 mmHg (35-45); ABG PH 7.28 (7.35-7.45); ABG TCO2 30 mmol/L (19-24)
[2024-08-23 16:04] LABS: ABG PO2 >420 mmHg (83-108)
--- NOTE | 2024-08-23 16:07 | XR ---
EXAMINATION TYPE: XR chest 1V portable DATE OF EXAM: 08/23/2024 3:55 PM COMPARISON: Chest radiographs from 08/23/2024 CLINICAL INDICATION: Female, 63 years old with history of confirm line and et tube; TECHNIQUE: XR chest 1V portable Frontal view of the chest. FINDINGS: Lungs/Pleura: There is no evidence of pleural effusion, focal consolidation, or pneumothorax. Pulmonary vascularity: Unremarkable. Heart/mediastinum: Cardiomediastinal silhouette is unremarkable. Musculoskeletal: No acute osseous pathology. Other findings: Lines/Tubes: Endotracheal tube with distal tip 4.1 cm above the danilo. Right internal jugular central venous catheter with distal tip at the cavoatrial junction. Left central venous catheter with distal tip at the cavoatrial junction. IMPRESSION: Endotracheal nasogastric tubes in satisfactory position. Subtle scattered opacities which may represent an atypical pneumonia. Correlate for covid 19. [facility], , 08/23/2024 4:05 PM
[2024-08-23] MEDS: HYDROmorphone 0.5 MG/0.5 ML SYRINGE IVP PRN (16:20)
--- NOTE | 2024-08-23 16:55 | P.CNPUL ---
History of Present Illness Consult date: 08/23/24 Requesting physician: Manny Delacruz Reason for consult: dyspnea, hypoxemia Chief complaint: Right lower extremity pain History of present illness: This is a 63-year-old female patient with a known history of multiple myeloma receiving chemotherapy recently, suspected lung cancer with a PET positive right upper lobe 1.7 cm spiculated nodule, chronic obstructive pulmonary disease, chronic tobacco dependence, hypertension, hypothyroidism, end-stage renal disease receiving hemodialysis. She was admitted here on 08/21/2024 with complaints of right lower extremity pain. Been undergoing evaluation. Today on August 23, 2024 she had rapid response called on her twice for increasing shortness of breath and hypoxemia. She was subsequently transferred to the intensive care unit. She was placed on BiPAP 12/6 and 100% FiO2. She continued to do poorly and was subsequently intubated and placed on the mechanical ventilator. Currently on assist-control mode at a rate of 20, tidal volume 350, FiO2 100% and a PEEP of 5. She did undergo a left subclavian triple-lumen catheter placement and a right radial arterial line placement. Chest x-ray revealed satisfactory positions of the lines. Subtle scattered opacities may represent atypical pneumonia. Finding out today she is positive for COVID-19. Arterial blood gases post intubation revealed a PaO2 greater than 420, pCO2 of 60 and a pH of 7.28. FiO2 will be decreased accordingly. White count 8.5. Hemoglobin 8.7. Platelets 404. Sodium 129. Potassium 5.7. Bicarb 24. BUN 57. Creatinine 5.92. Glucose 82. She is sedated on propofol at 15 mcg/kg/min. Review of Systems ROS unobtainable: due to endotracheal tube Past Medical History Past Medical History: Chest Pain / Angina, COPD, Hypertension, Osteoarthritis (OA), Renal Disease, Thyroid Disorder Additional Past Medical History / Comment(s): Hx racing heart, "have a bad left valve", bronchitis, sinus problems, thyroid nodules-benign, occasional lower back pain, hx anemia with , "too much protein in bone marrow", stage 5 kidney disease, "Need right hip replacement but can't have it due to kidneys." "Have a bad right knee too." History of Any Multi-Drug Resistant Organisms: None Reported Past Surgical History: Cardiac Ablation, Orthopedic Surgery, Tubal Ligation Additional Past Surgical History / Comment(s): Cardiac ablation, L foot fracture/pinned, colonoscopies, right kidney biopsy. Past Anesthesia/Blood Transfusion Reactions: No Reported Reaction Additional Past Anesthesia/Blood Transfusion Reaction / Comment(s): Aileen acosta. Past Psychological History: No Psychological Hx Reported Smoking Status: Former smoker Past Alcohol Use History: None Reported Past Drug Use History: Marijuana - Past Family History Father Additional Family Medical History / Comment(s): Father is from an enlarged heart/iglesias's lung. Mother Family Medical History: No Reported History Medications and Allergies Home Medications Medication Instructions Recorded Confirmed Type Budesonide/Formoterol Fumarate 2 puff INHALATION RT-BID PRN 01/05/24 08/21/24 History [Breyna 80-4.5 Mcg Inhaler] Acetaminophen [Tylenol Extra 500 mg PO BID 05/11/24 08/21/24 History Strength] Acyclovir [Zovirax] 400 mg PO BID 08/21/24 08/21/24 History Ascorbic Acid [Vitamin C] 1,000 mg PO DAILY 08/21/24 08/21/24 History Aspirin EC [Ecotrin Low Dose] 81 mg PO DAILY 08/21/24 08/21/24 History Calcium Carbonate/Vitamin D3 1 tab PO DAILY 08/21/24 08/21/24 History [Calcium 600 mg-Vit D3 10 mcg (400 Unit)] Cholecalciferol [Vitamin D3 (125 125 mcg PO DAILY 08/21/24 08/21/24 History Mcg = 5000 Iu)] Cyanocobalamin [Vitamin B-12] 500 mcg PO DAILY 08/21/24 08/21/24 History Ferrous Sulfate [Feosol] 325 mg PO DAILY 08/21/24 08/21/24 History Folic Acid 0.8 mg PO DAILY 08/21/24 08/21/24 History Glucosam/Christiano-Msm1/C/Giovanny/Bosw 1 tab PO DAILY 08/21/24 08/21/24 History [Glucosamine-Chondroitin Tablet] Loratadine 10 mg PO DAILY 08/21/24 08/21/24 History Multivitamins, Thera [Multivitamin 1 tab PO DAILY 08/21/24 08/21/24 History (formulary)] [place]-3/Dha/Epa/Fish Oil [Fish Oil 1 cap PO DAILY 08/21/24 08/21/24 History 1,000 mg Softgel] Omeprazole 20 mg PO DAILY 08/21/24 08/21/24 History Vit C/E/Zn/Coppr/Lutein/Zeaxan 1 tab PO DAILY 08/21/24 08/21/24 History [Preservision Areds 2 Softgel] Vitamin E (Dl,Tocopheryl Acet) 400 unit PO DAILY 08/21/24 08/21/24 History [Vitamin E (400 Iu = 180 mg)] dexAMETHasone [Decadron] 8 mg PO DAILY 08/21/24 08/21/24 History Allergies Allergy/AdvReac Type Severity Reaction Status Date / Time bee venom protein (honey bee) Allergy Anaphylaxis Verified 08/21/24 10:40 chocolate Allergy Anaphylaxis Verified 08/21/24 19:54 codeine Allergy Anaphylaxis Verified 08/21/24 10:40 levofloxacin [From Levaquin] Allergy Unknown Verified 08/21/24 10:40 red dye Allergy Anaphylaxis Verified 08/21/24 10:40 strawberry Allergy Anaphylaxis Verified 08/21/24 10:40 tree nut [Nut] Allergy Anaphylaxis Verified 08/21/24 19:54 STEROIDS AdvReac Severe rage Uncoded 08/21/24 05:16 behavior-"almost killed my dog" Physical Exam Vitals: Vital Signs Temp Pulse Pulse Resp BP BP Pulse Ox 08/23/24 16:30 90 20 96 08/23/24 16:15 94 20 100 08/23/24 16:11 08/23/24 16:00 97 20 115/64 100 08/23/24 15:45 84 20 104/66 100 08/23/24 15:30 77 20 92/59 100 08/23/24 15:24 08/23/24 15:15 121 H 19 107/66 08/23/24 15:08 08/23/24 15:00 98 15 109/52 08/23/24 14:45 98 13 109/52 08/23/24 14:30 90 11 L 95/65 08/23/24 14:15 96 21 100/62 08/23/24 14:10 94 21 83/54 95 08/23/24 14:00 106 H 21 110/85 08/23/24 13:50 112 H 23 110/85 96 08/23/24 13:41 98 15 08/23/24 13:29 98.7 F 51 L 20 108/53 08/23/24 12:30 08/23/24 12:15 95 08/23/24 12:08 98.3 F 98 22 120/68 90 L 08/23/24 09:00 97 08/23/24 08:35 99.1 F 68 16 128/59 92 L 08/23/24 04:00 98.3 F 126 H 22 94/67 96 08/22/24 23:48 98.5 F 95 16 94/54 95 08/22/24 22:04 115/62 08/22/24 21:50 98.5 F 148 H 24 107/80 96 08/22/24 20:00 147 H 08/22/24 19:30 98.4 F 145 H 22 112/76 96 FiO2 08/23/24 16:30 08/23/24 16:15 08/23/24 16:11 50 08/23/24 16:00 08/23/24 15:45 08/23/24 15:30 100 08/23/24 15:24 100 08/23/24 15:15 08/23/24 15:08 100 08/23/24 15:00 08/23/24 14:45 08/23/24 14:30 08/23/24 14:15 08/23/24 14:10 100 08/23/24 14:00 08/23/24 13:50 100 08/23/24 13:41 08/23/24 13:29 08/23/24 12:30 100 08/23/24 12:15 90 08/23/24 12:08 08/23/24 09:00 08/23/24 08:35 08/23/24 04:00 08/22/24 23:48 08/22/24 22:04 08/22/24 21:50 08/22/24 20:00 08/22/24 19:30 Intake and Output 08/23/24 08/23/24 08/23/24 06:59 14:59 22:59 Intake Total 710 Output Total 3900 Balance -3190 Intake: IV 10 .9NS KVO 10 Hemodialysis 700 Output: Urine 200 Hemodialysis 2200 Hemodialysis Net Amount 1500 Other: Voiding Method Indwelling Catheter Indwelling Catheter Weight 53.5 kg ABP, PAP, CO, CI - Last 8 Hours Arterial Blood Pressure 83/48 Arterial Blood Pressure 116/65 Arterial Blood Pressure 124/70 Arterial Blood Pressure 120/62 GENERAL EXAM: Intubated, sedated, frail 63-year-old female, on the mechanical ventilator, in no apparent distress. HEAD: Normocephalic. EYES: Normal reaction of pupils, equal size. NOSE: Clear with pink turbinates. THROAT: Oral endotracheal and gastric tube secured in place. No erythema or exudates. NECK: No masses, no JVD. CHEST: No chest wall deformity. LUNGS: Equal air entry with no crackles, wheeze, rhonchi or dullness. CVS: S1 and S2 normal with no audible murmur, regular rhythm. ABDOMEN: No hepatosplenomegaly, normal bowel sounds, no guarding or rigidity. SPINE: No scoliosis or deformity SKIN: No rashes CENTRAL NERVOUS SYSTEM: No focal deficits, tone is normal in all 4 extremities. EXTREMITIES: There is no peripheral edema. No clubbing, no cyanosis. Peripheral pulses are intact. Results - Laboratory Findings CBC and BMP: 08/23/24 11:00 08/23/24 06:12 ABG ABG pH 7.28 (7.35-7.45) L 08/23/24 16:00 ABG pCO2 60 mmHg (35-45) H 08/23/24 16:00 ABG pO2 >420 mmHg (83-108) H 08/23/24 16:00 ABG O2 Saturation >100.0 % (94-97) H 08/23/24 16:00 PT/INR, D-dimer PT 10.4 sec (10.0-12.5) 08/23/24 12:47 INR 0.9 (<1.2) 08/23/24 12:47 D-Dimer 1.83 mg/L FEU (<0.60) H 08/22/24 20:24 Abnormal lab findings: Abnormal Labs 08/21/24 08/21/24 08/21/24 05:19 05:19 18:40 RBC 2.71 L Hgb 7.8 L Hct 24.8 L MCHC RDW 19.4 H Neutrophils # Lymphocytes # 0.2 L D-Dimer ABG pH ABG pCO2 ABG pO2 ABG HCO3 ABG Total CO2 ABG O2 Saturation Hemoglobin Sodium 132 L Potassium Chloride 95 L Carbon Dioxide 20 L BUN 87 H Creatinine 8.27 H* Glucose 113 H POC Glucose (mg/dL) 112 H Albumin TSH Urine Protein Urine Blood Ur Leukocyte Esterase Urine WBC Urine Bacteria SARS-CoV-2 (PCR) 08/22/24 08/22/24 08/22/24 08:11 08:11 20:05 RBC 2.87 L Hgb 8.3 L Hct 27.0 L MCHC 30.9 L RDW 19.3 H Neutrophils # Lymphocytes # D-Dimer ABG pH ABG pCO2 ABG pO2 ABG HCO3 ABG Total CO2 ABG O2 Saturation Hemoglobin Sodium Potassium Chloride 95 L Carbon Dioxide BUN 38 H Creatinine 4.15 H Glucose POC Glucose (mg/dL) 157 H Albumin TSH Urine Protein Urine Blood Ur Leukocyte Esterase Urine WBC Urine Bacteria SARS-CoV-2 (PCR) 08/22/24 08/22/24 08/22/24 20:24 20:24 20:24 RBC 2.97 L Hgb 8.3 L Hct 27.6 L MCHC 30.0 L RDW 19.3 H Neutrophils # 8.1 H Lymphocytes # 0.2 L D-Dimer 1.83 H ABG pH ABG pCO2 ABG pO2 ABG HCO3 ABG Total CO2 ABG O2 Saturation Hemoglobin Sodium 128 L Potassium 5.6 H Chloride 91 L Carbon Dioxide BUN 48 H Creatinine 4.77 H Glucose 157 H POC Glucose (mg/dL) Albumin 3.3 L TSH 0.428 L Urine Protein Urine Blood Ur Leukocyte Esterase Urine WBC Urine Bacteria SARS-CoV-2 (PCR) 08/23/24 08/23/24 08/23/24 06:12 06:12 11:00 RBC 2.86 L 3.02 L Hgb 8.2 L 8.7 L Hct 26.8 L 28.3 L MCHC 30.4 L 30.9 L RDW 19.3 H 19.3 H Neutrophils # 8.0 H Lymphocytes # 0.3 L D-Dimer ABG pH ABG pCO2 ABG pO2 ABG HCO3 ABG Total CO2 ABG O2 Saturation Hemoglobin Sodium 129 L Potassium 5.7 H Chloride 91 L Carbon Dioxide BUN 57 H Creatinine 5.92 H Glucose POC Glucose (mg/dL) Albumin 2.9 L TSH Urine Protein Urine Blood Ur Leukocyte Esterase Urine WBC Urine Bacteria SARS-CoV-2 (PCR) 08/23/24 08/23/24 08/23/24 12:06 13:16 13:30 RBC Hgb Hct MCHC RDW Neutrophils # Lymphocytes # D-Dimer ABG pH 7.33 L ABG pCO2 54 H ABG pO2 190 H ABG HCO3 29 H ABG Total CO2 30 H ABG O2 Saturation 99.9 H Hemoglobin 8.9 L Sodium Potassium Chloride Carbon Dioxide BUN Creatinine Glucose POC Glucose (mg/dL) Albumin TSH Urine Protein 2+ H Urine Blood Moderate H Ur Leukocyte Esterase Small H Urine WBC 7 H Urine Bacteria Rare H SARS-CoV-2 (PCR) Detected A 08/23/24 16:00 RBC Hgb Hct MCHC RDW Neutrophils # Lymphocytes # D-Dimer ABG pH 7.28 L ABG pCO2 60 H ABG pO2 >420 H ABG HCO3 28 H ABG Total CO2 30 H ABG O2 Saturation >100.0 H Hemoglobin 7.6 L Sodium Potassium Chloride Carbon Dioxide BUN Creatinine Glucose POC Glucose (mg/dL) Albumin TSH Urine Protein Urine Blood Ur Leukocyte Esterase Urine WBC Urine Bacteria SARS-CoV-2 (PCR) - Diagnostic Findings Chest x-ray: image reviewed Assessment and Plan Assessment: Acute hypoxemic respiratory failure suspect secondary to an acute exacerbation of chronic obstructive pulmonary disease and fluid volume overload, CoVID infection COVID-19 infection and possible COVID-pneumonia History of multiple myeloma receiving treatment as recently as earlier this month Right upper lobe 1.7 cm spiculated lesion, PET positive History of chronic tobacco dependence Hypertension End-stage renal disease receiving hemodialysis Hypothyroidism Leg pain initially causing this admission on 08/21/2024 Plan: The patient was seen and evaluated Chest x-ray, labs and medications reviewed Intubated and placed on mechanical ventilator Left subclavian triple-lumen catheter placed Right radial arterial line placed ABGs were reviewed Titrate the FiO2 as tolerated Initiated on propofol currently at 15 mcg/kg/min Initiate trickle tube feedings until seen by dietitian Initiated on Symbicort and albuterol HFA. Continued on Decadron Initiate on Lovenox for DVT prophylaxis Protonix for GI prophylaxis Follow-up chest x-ray, ABGs, labs in the a.m. We will continue to follow and make further recommendations based on her clinical status I have personally seen and examined the patient, performed the documentation and the assessment and plan as written. Number of minutes spent on the visit: 20 Dictation was produced using [employer] dictation software. Please excuse any grammatical, word or spelling errors. This patient was seen in coordination with the pulmonary/critical care physician, Dr. Wells. He did spend greater than 50% of the time evaluating, examining and developing the plan of care. He agrees to the above HPI, physical exam, assessment and plan of care as dictated by the nurse practitioner. Time with Patient: Greater than 30
[2024-08-23] MEDS: ALBUTEROL HFA INHALER INHALATION SCH (17:25)
--- NOTE | 2024-08-23 17:56 | P.PN ---
Subjective Progress Note Date: 08/23/24 At todays visit, pt appears to be more confused than previous visit. A&O 2. Breathing also appears to be more labored. Pt afebrile. WBC 7.8, Hgb 8.2, plt 357 Undergoing HD this morning Objective - Vital Signs Vital signs: Vital Signs Temp 99.1 F 08/23/24 08:35 Pulse 68 08/23/24 08:35 Resp 16 08/23/24 08:35 BP 128/59 08/23/24 08:35 Pulse Ox 97 08/23/24 09:00 FiO2 Intake & Output 08/22/24 08/23/24 08/23/24 18:59 06:59 18:59 Intake Total 894 Output Total 150 Balance 744 Weight 53.5 kg Intake: Oral 894 Output: Urine 150 Uretheral ([place]) 150 Other: Voiding Method Indwelling Catheter Indwelling Catheter Indwelling Catheter - Constitutional General appearance: Present: average body habitus, no acute distress - EENT ENT: Present: hearing grossly normal - Respiratory Details: breathing labored - Cardiovascular Details: skin warm and dry - Integumentary Integumentary: Absent: cyanotic - Musculoskeletal Musculoskeletal: Present: generalized weakness - Labs CBC & Chem 7: 08/23/24 11:00 08/23/24 06:12 Labs: Abnormal Lab Results - Last 24 Hours (Table) 08/22/24 08/22/24 08/22/24 Range/Units 20:05 20:24 20:24 RBC 2.97 L (3.80-5.40) m/uL Hgb 8.3 L (11.4-16.0) gm/dL Hct 27.6 L (34.0-46.0) % MCHC 30.0 L (31.0-37.0) g/dL RDW 19.3 H (11.5-15.5) % Neutrophils # 8.1 H (1.3-7.7) k/uL Lymphocytes # 0.2 L (1.0-4.8) k/uL D-Dimer (<0.60) mg/L FEU Sodium 128 L (137-145) mmol/L Potassium 5.6 H (3.5-5.1) mmol/L Chloride 91 L (98-107) mmol/L BUN 48 H (7-17) mg/dL Creatinine 4.77 H (0.52-1.04) mg/dL Glucose 157 H (74-99) mg/dL POC Glucose (mg/dL) 157 H (70-110) mg/dL Albumin 3.3 L (3.5-5.0) g/dL TSH 0.428 L (0.465-4.680) mIU/L 08/22/24 08/23/24 08/23/24 Range/Units 20:24 06:12 06:12 RBC 2.86 L (3.80-5.40) m/uL Hgb 8.2 L (11.4-16.0) gm/dL Hct 26.8 L (34.0-46.0) % MCHC 30.4 L (31.0-37.0) g/dL RDW 19.3 H (11.5-15.5) % Neutrophils # (1.3-7.7) k/uL Lymphocytes # (1.0-4.8) k/uL D-Dimer 1.83 H (<0.60) mg/L FEU Sodium 129 L (137-145) mmol/L Potassium 5.7 H (3.5-5.1) mmol/L Chloride 91 L (98-107) mmol/L BUN 57 H (7-17) mg/dL Creatinine 5.92 H (0.52-1.04) mg/dL Glucose (74-99) mg/dL POC Glucose (mg/dL) (70-110) mg/dL Albumin 2.9 L (3.5-5.0) g/dL TSH (0.465-4.680) mIU/L - Imaging and Cardiology Chest x-ray: report reviewed CT scan - pelvis: report reviewed Assessment and Plan (1) End stage renal disease Current Visit: Yes Status: Acute Priority: High Code(s): N18.6 - END STAGE RENAL DISEASE SNOMED Code(s): 55055491 (2) Intractable pain Current Visit: Yes Status: Acute Priority: High Code(s): R52 - PAIN, UNSPECIFIED SNOMED Code(s): 88477927 (3) Multiple myeloma Current Visit: Yes Status: Acute Priority: High Code(s): C90.00 - MULTIPLE MYELOMA NOT HAVING ACHIEVED REMISSION SNOMED Code(s): 198709170 Plan: Intractable RLE pain: Presented to emergency room with complaints of worsening right lower extremity pain over the last 24 hours. Patient does have history of chronic right hip pain. She reports pain is in her right groin radiating down her leg, but typically pain is more lateral towards the hip. Denies low back pain, RLE numbness tingling, and leg swelling. Denies any known injury. -Right femur/hip and pelvis x-rays showing moderate degenerative changes. Of note pt did have NM bone scan on 08/09/24 which showed no hip fracture and no abnormal uptake to suggest osseous mets. -IV pain meds ordered -Palpable approx 7 cm mass noted in right groin. Right groin US obtained showing moderate right hip osteoarthritis with moderate joint effusion. A 7.9 x 4.1 x 2.4 cm isoechoic abnormality seems to surround the right hip, could represent large ganglion cyst containing internal thickened material versus a soft tissue mass. CT pelvis was subsequently obtained which revealed right inguinal mass lateral to the vascular structures appears homogeneous, adenopathy is favored. Also noted a hypodensity measuring 0.9 cm within the anterior left inguinal thigh musculature, likely a hematoma -IR consult placed for core biopsy of inguinal mass Confusion, SOB: Pt has became more confused overnight, with labored breathing noted -Will obtain UA, blood cultures and viral panel -Repeat CXR ordered Multiple myeloma: -Oncology history as dictated in the HPI -RVD was initiated on 06/12/24 with daratumumab started with cycle 2. She most recently completed cycle 3 on 08/13, with velcade being held since 08/03 due to cytopenias -Counts stable -Anemia secondary to MM, chemo effects and ESRD. Continue to monitor CBC. Transfuse for hgb < 7, with irradiated blood products -Treatment will be on hold until pt acutely recovers
[2024-08-23] MEDS: SYMBICORT 80-4.5 MCG INHALER INHALATION SCH (20:28)
--- NOTE | 2024-08-23 20:38 | PCN ---
PROCEDURE NOTE PROCEDURE: Endotracheal intubation. PREOPERATIVE DIAGNOSIS: Respiratory failure. POSTOPERATIVE DIAGNOSIS: Respiratory failure. OPERATORS: Dr. Wells and Dr. Barry. The patient's procedure took place in room #257 ICU. The patient received propofol, Ativan, and morphine, for rapid sequence intubation. We used a standard laryngoscope with #3 Kirill blade. We used a #8 endotracheal tube. The endotracheal tube was seen to go through the glottic opening, there was good color change on the qualitative capnography device. There were good bilateral breath sounds. The balloon on the endotracheal tube was inflated. The patient was connected to the mechanical ventilator. There was no immediate complication. The patient tolerated the procedure well. A chest x-ray will be ordered. MMODL / IJN: [id number] /
--- NOTE | 2024-08-23 20:38 | PCN ---
PROCEDURE NOTE PROCEDURE PERFORMED: Right radial arterial line. PREOPERATIVE DIAGNOSES: Frequent blood draws and blood gas monitoring. POSTOPERATIVE DIAGNOSES: Frequent blood draws and blood gas monitoring. OPERATORS: Dr. Wells and Dr. Barry. There was informed consent and universal timeout. The patient's procedure took place in room 257. ARTERIAL LINE PLACEMENT: Indications: Hemodynamic monitoring. A time-out was completed verifying correct patient, procedure, site, positioning, and implant(s) or special equipment if applicable. Vijay's test was performed to ensure adequate perfusion. The patient's right wrist or right groin was prepped and draped in sterile fashion. 1% Lidocaine was used to anesthetize the area. An 18G Arrow arterial line was introduced into the right radial artery. The catheter was threaded over the guide wire and the needle was removed with appropriate pulsatile blood return. Blood loss was minimal. The catheter was then sutured in place to the skin and a sterile dressing applied. Perfusion to the extremity distal to the point of catheter insertion was checked and found to be adequate. There was good blood return and waveform. The patient tolerated the procedure well. The catheter was sutured in place. Sterile dressing was applied by the nurse. There was no immediate complication. MMODL / IJN: [id number] /
--- NOTE | 2024-08-23 20:45 | PCN ---
PROCEDURE NOTE PROCEDURE PERFORMED: Left subclavian triple-lumen catheter. PREOPERATIVE DIAGNOSES: Administration of fluids and pressors. POSTOPERATIVE DIAGNOSES: Administration of fluids and pressors. OPERATORS: Dr. Wells and Dr. Barry. The patient's procedure took place in room #257. There was informed consent and universal timeout. TRIPLE LUMEN CATHETER PLACEMENT: Indication: Hemodynamic monitoring/Intravenous access. A time-out was completed verifying correct patient, procedure, site, positioning, and implant(s) or special equipment if applicable. The patient was placed in a dependent position appropriate for triple lumen catheter placement based on the vein to be cannulated. The patient's left shoulder or left neck or left groin was prepped and draped in sterile fashion. 1% Lidocaine was used to anesthetize the surrounding skin area. A triple lumen 9F Cordis catheter was introduced into the left subclavian vein using Seldinger technique. The catheter was threaded smoothly over the guide wire and appropriate blood return was obtained. Each lumen of the catheter was evacuated of air and flushed with sterile saline. The catheter was then sutured in place to the skin and a sterile dressing applied. Perfusion to the extremity distal to the point of catheter insertion was checked and found to be adequate. There was good blood return from all 3 ports. The catheter was sutured in place. Sterile dressing was applied by the nurse. There was no immediate complication. A chest x-ray was ordered. The tip of the catheter was seen at the junction of superior vena cava and right atrium. Sterile dressing was applied by the nurse. Again, no immediate complication. The patient tolerated the procedure well. MMODL / IJN: [id number] /
[2024-08-23] MEDS: CHLORHEXIDINE GLUCONATE 15 ML CUP MUCOUS MEM SCH (21:28)
[2024-08-24 02:44] LABS: Anisocytosis Slight; HCT 22.5 % (34.0-46.0); Hypochromasia Marked; MCH 29.6 pg (25.0-35.0); MCHC 31.1 g/dL (31.0-37.0); MCV 95.1 fL (80.0-100.0); Macrocytosis Slight; Mean Platelet Volume 7.2; Platelet Count 352 k/uL (150-450); RBC 2.36 m/uL (3.80-5.40); RDW 19.2 % (11.5-15.5); WBC 6.6 k/uL (3.8-10.6)
[2024-08-24 02:53] LABS: ALT 14 U/L (4-34); AST 18 U/L (14-36); African American GFR (CKD) 16 (>60 ml/min/1.73 sqM); Albumin 2.6 g/dL (3.5-5.0); Alkaline Phosphatase 43 U/L (38-126); Anion Gap 11 mmol/L; Blood Urea Nitrogen 32 mg/dL (7-17); Calcium 8.6 mg/dL (8.4-10.2); Carbon Dioxide 25 mmol/L (22-30); Chloride 96 mmol/L (98-107); Glucose 108 mg/dL (74-99); Magnesium 1.9 mg/dL (1.6-2.3); Non-African American GFR(CKD) 14 (>60 ml/min/1.73 sqM); Potassium 4.8 mmol/L (3.5-5.1); Sodium 132 mmol/L (137-145); Total Bilirubin 0.3 mg/dL (0.2-1.3); Total Protein 5.9 g/dL (6.3-8.2)
[2024-08-24 06:02] LABS: ABG Base Excess 0.8 mmol/L; ABG HCO3 27 mmol/L (21-25); ABG Oxygen Saturation 98.1 % (94-97); ABG PCO2 48 mmHg (35-45); ABG PH 7.35 (7.35-7.45); ABG PO2 99 mmHg (83-108); ABG TCO2 28 mmol/L (19-24); Allen Test Performed? Yes
--- NOTE | 2024-08-24 07:42 | P.PN ---
Subjective Progress Note Date: 08/24/24 PROGRESS NOTE The patient is a 63-year-old female who was admitted with symptoms of progressive dyspnea, significant right groin discomfort, has a history of multiple myeloma, end-stage renal disease, lung nodules and evidence of malignancy. On presentation she was in atrial flutter with rapid ventricular response. Yesterday she became more dyspneic requiring mechanical ventilation and was transferred to the ICU. She is intubated and sedated at this time. She was in sinus mechanism for a period of time but she is in atrial fibrillation at this point. There is no evidence of ventricular ectopic activity. In the past her echocardiogram showed a preserved systolic function with mild mitral and m ild to moderate tricuspid regurgitation and moderate pulmonary hypertension. Medications: IV Cardizem, Lovenox subcu, Mucinex, metoprolol tartrate 25 mg twice a day, norepinephrine PHYSICAL EXAMINATION: Blood pressure 119/69 heart rate 96, intubated and sedated LUNGS: Clear anteriorly HEART: Irregular rate and rhythm, S1, S2. No S3. Systolic ejection murmur ABDOMEN: Soft, nontender, no organomegaly EXTREMETIES: No edema, right inguinal mass LAB: Hemoglobin 7, pH 7.35, pO2 99. BUN 32, creatinine 3.32. She is COVID-positive IMPRESSION: 1. Acute respiratory failure with a combination of COVID infection, history of COPD and lung mass 2. Multiple myeloma 3. Atrial fibrillation and atrial flutter 4. Anemia most likely related to the multiple myeloma 5. End-stage renal disease on hemodialysis 6. Prior history of hypertension 7. Right groin mass could be related to her malignancy PLAN: 1. Continue IV Cardizem and beta-fidel 2. Will hold on IV anticoagulation at this point and follow her hemoglobin closely 3. Obtain an echocardiogram with Doppler 4. Prognosis is poor. Objective - Vital Signs Vital signs: Vital Signs Temp 97.9 F 08/24/24 05:15 Pulse 106 H 08/24/24 07:30 Resp 25 H 08/24/24 07:30 BP 119/69 08/24/24 07:30 Pulse Ox 97 08/24/24 07:30 FiO2 50 08/24/24 04:00 Intake & Output 08/23/24 08/24/24 08/24/24 18:59 06:59 18:59 Intake Total 2031.447 398.110 Output Total 3930 Balance -1898.553 398.110 Weight 58.1 kg Intake: IV 1043 .9NS KVO 40 .9NS Pressure Bag 3 LR Bolus 1000 Intake, IV Titration 288.447 398.110 Amount Diltiazem 125 mg In 125 Sodium Chloride 0.9% 100 ml @ 5 MG/HR 5 mls/hr IV .Q24H [facility] Rx#:[id number] Lactated Ringers 1,000 ml 200 @ 100 mls/hr IV .Q10H [facility] Rx#:[id number] Norepinephrine 8 mg In 64.720 142.294 Sodium Chloride 0.9% 250 ml @ 0.03 MCG/KG/MIN 3. 106 mls/hr IV .Q24H [facility] Rx#:[id number] propofoL 1,000 mg In 23.727 130.816 Empty Bag 1 bag @ 15 MCG/ KG/MIN 4.815 mls/hr IV . [id number] [facility] Rx#:[id number] Hemodialysis 700 Output: Urine 230 Hemodialysis 2200 Hemodialysis Net Amount 1500 Other: Voiding Method Indwelling Catheter Indwelling Catheter ABP, PAP, CO, CI - Last Documented Arterial Blood Pressure 99/57 - Labs CBC & Chem 7: 08/24/24 02:05 08/24/24 02:05 Labs: Abnormal Lab Results - Last 24 Hours (Table) 08/23/24 08/23/24 08/23/24 Range/Units 11:00 12:06 13:16 RBC 3.02 L (3.80-5.40) m/uL Hgb 8.7 L (11.4-16.0) gm/dL Hct 28.3 L (34.0-46.0) % MCHC 30.9 L (31.0-37.0) g/dL RDW 19.3 H (11.5-15.5) % Neutrophils # 8.0 H (1.3-7.7) k/uL Lymphocytes # 0.3 L (1.0-4.8) k/uL ABG pH 7.33 L (7.35-7.45) ABG pCO2 54 H (35-45) mmHg ABG pO2 190 H (83-108) mmHg ABG HCO3 29 H (21-25) mmol/L ABG Total CO2 30 H (19-24) mmol/L ABG O2 Saturation 99.9 H (94-97) % Hemoglobin 8.9 L (11.4-16.0) gm/dL Sodium (137-145) mmol/L Chloride (98-107) mmol/L BUN (7-17) mg/dL Creatinine (0.52-1.04) mg/dL Glucose (74-99) mg/dL Total Protein (6.3-8.2) g/dL Albumin (3.5-5.0) g/dL Urine Protein (Negative) Urine Blood (Negative) Ur Leukocyte Esterase (Negative) Urine WBC (0-5) /hpf Urine Bacteria (None) /hpf SARS-CoV-2 (PCR) Detected A (Not Detectd) 08/23/24 08/23/24 08/24/24 Range/Units 13:30 16:00 02:05 RBC 2.36 L (3.80-5.40) m/uL Hgb 7.0 L D (11.4-16.0) gm/dL Hct 22.5 L (34.0-46.0) % MCHC (31.0-37.0) g/dL RDW 19.2 H (11.5-15.5) % Neutrophils # (1.3-7.7) k/uL Lymphocytes # (1.0-4.8) k/uL ABG pH 7.28 L (7.35-7.45) ABG pCO2 60 H (35-45) mmHg ABG pO2 >420 H (83-108) mmHg ABG HCO3 28 H (21-25) mmol/L ABG Total CO2 30 H (19-24) mmol/L ABG O2 Saturation >100.0 H (94-97) % Hemoglobin 7.6 L (11.4-16.0) gm/dL Sodium (137-145) mmol/L Chloride (98-107) mmol/L BUN (7-17) mg/dL Creatinine (0.52-1.04) mg/dL Glucose (74-99) mg/dL Total Protein (6.3-8.2) g/dL Albumin (3.5-5.0) g/dL Urine Protein 2+ H (Negative) Urine Blood Moderate H (Negative) Ur Leukocyte Esterase Small H (Negative) Urine WBC 7 H (0-5) /hpf Urine Bacteria Rare H (None) /hpf SARS-CoV-2 (PCR) (Not Detectd) 08/24/24 08/24/24 Range/Units 02:05 05:58 RBC (3.80-5.40) m/uL Hgb (11.4-16.0) gm/dL Hct (34.0-46.0) % MCHC (31.0-37.0) g/dL RDW (11.5-15.5) % Neutrophils # (1.3-7.7) k/uL Lymphocytes # (1.0-4.8) k/uL ABG pH (7.35-7.45) ABG pCO2 48 H (35-45) mmHg ABG pO2 (83-108) mmHg ABG HCO3 27 H (21-25) mmol/L ABG Total CO2 28 H (19-24) mmol/L ABG O2 Saturation 98.1 H (94-97) % Hemoglobin 6.7 L* (11.4-16.0) gm/dL Sodium 132 L (137-145) mmol/L Chloride 96 L (98-107) mmol/L BUN 32 H (7-17) mg/dL Creatinine 3.32 H (0.52-1.04) mg/dL Glucose 108 H (74-99) mg/dL Total Protein 5.9 L (6.3-8.2) g/dL Albumin 2.6 L (3.5-5.0) g/dL Urine Protein (Negative) Urine Blood (Negative) Ur Leukocyte Esterase (Negative) Urine WBC (0-5) /hpf Urine Bacteria (None) /hpf SARS-CoV-2 (PCR) (Not Detectd)
--- NOTE | 2024-08-24 08:35 | P.PN ---
Subjective Principal diagnosis: Acute respiratory failure This is a 63-year-old white female who yesterday had developed SVT and had acute respiratory failure. The patient was transferred to the ICU and found to have COVID. Underlying history of multiple myeloma lung mass and groin pain possibly related to her malignancy. Echocardiogram is being done when I am in the room. She is sedated. Objective - Vital Signs Vital signs: Vital Signs Temp 97.9 F 08/24/24 05:15 Pulse 106 H 08/24/24 07:30 Resp 25 H 08/24/24 07:30 BP 119/69 08/24/24 07:30 Pulse Ox 97 08/24/24 07:30 FiO2 50 08/24/24 04:00 Intake & Output 08/23/24 08/24/24 08/24/24 18:59 06:59 18:59 Intake Total 2031.447 408.860 8.351 Output Total 3930 Balance -1898.553 408.860 8.351 Weight 58.1 kg Intake: IV 1043 .9NS KVO 40 .9NS Pressure Bag 3 LR Bolus 1000 Intake, IV Titration 288.447 408.860 8.351 Amount Diltiazem 125 mg In 125 Sodium Chloride 0.9% 100 ml @ 5 MG/HR 5 mls/hr IV .Q24H [facility] Rx#:[id number] Lactated Ringers 1,000 ml 200 @ 100 mls/hr IV .Q10H [facility] Rx#:[id number] Norepinephrine 8 mg In 64.720 153.044 8.351 Sodium Chloride 0.9% 250 ml @ 0.03 MCG/KG/MIN 3. 106 mls/hr IV .Q24H [facility] Rx#:[id number] propofoL 1,000 mg In 23.727 130.816 Empty Bag 1 bag @ 15 MCG/ KG/MIN 4.815 mls/hr IV . [id number] [facility] Rx#:[id number] Hemodialysis 700 Output: Urine 230 Hemodialysis 2200 Hemodialysis Net Amount 1500 Other: Voiding Method Indwelling Catheter Indwelling Catheter ABP, PAP, CO, CI - Last Documented Arterial Blood Pressure 99/57 - Constitutional General appearance: Present: thin - Neck Neck: Absent: lymphadenopathy - Respiratory Respiratory: bilateral: diminished - Cardiovascular Rhythm: irregularly irregular Heart sounds: normal: S1, S2 Abnormal Heart Sounds: Absent: S3 Gallop - Gastrointestinal General gastrointestinal: Present: soft. Absent: tenderness - Psychiatric Psychiatric: Present: A&O x's 3 - Labs CBC & Chem 7: 08/24/24 02:05 08/24/24 02:05 Labs: Abnormal Lab Results - Last 24 Hours (Table) 08/23/24 08/23/24 08/23/24 Range/Units 11:00 12:06 13:16 RBC 3.02 L (3.80-5.40) m/uL Hgb 8.7 L (11.4-16.0) gm/dL Hct 28.3 L (34.0-46.0) % MCHC 30.9 L (31.0-37.0) g/dL RDW 19.3 H (11.5-15.5) % Neutrophils # 8.0 H (1.3-7.7) k/uL Lymphocytes # 0.3 L (1.0-4.8) k/uL ABG pH 7.33 L (7.35-7.45) ABG pCO2 54 H (35-45) mmHg ABG pO2 190 H (83-108) mmHg ABG HCO3 29 H (21-25) mmol/L ABG Total CO2 30 H (19-24) mmol/L ABG O2 Saturation 99.9 H (94-97) % Hemoglobin 8.9 L (11.4-16.0) gm/dL Sodium (137-145) mmol/L Chloride (98-107) mmol/L BUN (7-17) mg/dL Creatinine (0.52-1.04) mg/dL Glucose (74-99) mg/dL Total Protein (6.3-8.2) g/dL Albumin (3.5-5.0) g/dL Urine Protein (Negative) Urine Blood (Negative) Ur Leukocyte Esterase (Negative) Urine WBC (0-5) /hpf Urine Bacteria (None) /hpf SARS-CoV-2 (PCR) Detected A (Not Detectd) 08/23/24 08/23/24 08/24/24 Range/Units 13:30 16:00 02:05 RBC 2.36 L (3.80-5.40) m/uL Hgb 7.0 L D (11.4-16.0) gm/dL Hct 22.5 L (34.0-46.0) % MCHC (31.0-37.0) g/dL RDW 19.2 H (11.5-15.5) % Neutrophils # (1.3-7.7) k/uL Lymphocytes # (1.0-4.8) k/uL ABG pH 7.28 L (7.35-7.45) ABG pCO2 60 H (35-45) mmHg ABG pO2 >420 H (83-108) mmHg ABG HCO3 28 H (21-25) mmol/L ABG Total CO2 30 H (19-24) mmol/L ABG O2 Saturation >100.0 H (94-97) % Hemoglobin 7.6 L (11.4-16.0) gm/dL Sodium (137-145) mmol/L Chloride (98-107) mmol/L BUN (7-17) mg/dL Creatinine (0.52-1.04) mg/dL Glucose (74-99) mg/dL Total Protein (6.3-8.2) g/dL Albumin (3.5-5.0) g/dL Urine Protein 2+ H (Negative) Urine Blood Moderate H (Negative) Ur Leukocyte Esterase Small H (Negative) Urine WBC 7 H (0-5) /hpf Urine Bacteria Rare H (None) /hpf SARS-CoV-2 (PCR) (Not Detectd) 08/24/24 08/24/24 Range/Units 02:05 05:58 RBC (3.80-5.40) m/uL Hgb (11.4-16.0) gm/dL Hct (34.0-46.0) % MCHC (31.0-37.0) g/dL RDW (11.5-15.5) % Neutrophils # (1.3-7.7) k/uL Lymphocytes # (1.0-4.8) k/uL ABG pH (7.35-7.45) ABG pCO2 48 H (35-45) mmHg ABG pO2 (83-108) mmHg ABG HCO3 27 H (21-25) mmol/L ABG Total CO2 28 H (19-24) mmol/L ABG O2 Saturation 98.1 H (94-97) % Hemoglobin 6.7 L* (11.4-16.0) gm/dL Sodium 132 L (137-145) mmol/L Chloride 96 L (98-107) mmol/L BUN 32 H (7-17) mg/dL Creatinine 3.32 H (0.52-1.04) mg/dL Glucose 108 H (74-99) mg/dL Total Protein 5.9 L (6.3-8.2) g/dL Albumin 2.6 L (3.5-5.0) g/dL Urine Protein (Negative) Urine Blood (Negative) Ur Leukocyte Esterase (Negative) Urine WBC (0-5) /hpf Urine Bacteria (None) /hpf SARS-CoV-2 (PCR) (Not Detectd) Assessment and Plan (1) COPD (chronic obstructive pulmonary disease) Current Visit: Yes Status: Acute Code(s): J44.9 - CHRONIC OBSTRUCTIVE PULMONARY DISEASE, UNSPECIFIED SNOMED Code(s): 23514721 (2) End stage renal disease Current Visit: Yes Status: Acute Priority: High Code(s): N18.6 - END STAGE RENAL DISEASE SNOMED Code(s): 41541125 (3) Intractable pain Current Visit: Yes Status: Acute Priority: High Code(s): R52 - PAIN, UNSPECIFIED SNOMED Code(s): 28971521 (4) Multiple myeloma Current Visit: Yes Status: Acute Priority: High Code(s): C90.00 - MULTIPLE MYELOMA NOT HAVING ACHIEVED REMISSION SNOMED Code(s): 786889551 (5) Right hip pain Current Visit: Yes Status: Acute Code(s): M25.551 - PAIN IN RIGHT HIP SNOMED Code(s): 18206409 Plan: Appreciate multiple consultants input. Dialysis treatment per nephrology. Holding off of chemotherapy for multiple myeloma at this time. Transferred to the ICU due to acute respiratory failure. COVID. Continue ventilatory and cardiac support. Check CBC and CMP in the a.m. Time with Patient: Greater than 30
--- NOTE | 2024-08-24 08:46 | XR ---
EXAMINATION TYPE: XR chest 1V portable DATE OF EXAM: 08/24/2024 4:08 AM COMPARISON: 08/23/2024 CLINICAL INDICATION: Female, 63 years old with history of Tube placement, , FINDINGS: Right-sided double-lumen hemodialysis catheters with tips at the mid SVC level. Left subclavian CVC t ip near the cavoatrial junction. ET and NG tubes are satisfactory. Heart remains mildly enlarged. Hyp erinflation with patchy bilateral interstitial opacities similar to slightly increased. No spiculated right upper lobe nodule. IMPRESSION: COPD with similar mild cardiomegaly. Superimposed patchy bilateral interstitial changes appears sligh tly worsened. Known spiculated right upper lobe nodule. [facility], , 08/24/2024 8:43 AM
[2024-08-24] MEDS: ENOXAPARIN 40 MG/0.4 ML SYRINGE SQ SCH (08:59)
[2024-08-24] MEDS: PANTOPRAZOLE 40 MG/10 ML VIAL IVP SCH (09:07)
[2024-08-24] MEDS: MAGNESIUM SULFATE-D5W PMX 1 GM in DEXTROSE/WATER 1 100ML.BAG IVPB SCH (11:19)
[2024-08-24 12:14] LABS: Glucose,Whole Blood 140 mg/dL (70-110)
[2024-08-24] MEDS: VANCOMYCIN 1,250 MG in SODIUM CHLORIDE 0.9% 250 ML IVPB ONE (12:29)
--- NOTE | 2024-08-24 13:25 | CA ---
Transthoracic Echo Report Name: Jennifer Singh Age: 63 Gender: F : 1960 Exam Date: 08/24/2024 08:12 Exam Location: [place] [facility] Ht (in): 68 Wt (lb): 117 Ordering Physician: Brigitte Patton Attending/Referring Phys: [id number], Abdi [employer] Training Manager Carol Claros RDCS Procedure CPT: Indications: LVF Cardiac Hx: Technical Quality: Fair Contrast 1: Total Dose (mL): Contrast 2: Total Dose (mL): MEASUREMENTS (Male / Female) Normal Values 2D ECHO LV Diastolic Diameter PLAX 3.8 cm 4.2 - 5.9 / 3.9 - 5.3 cm LV Systolic Diameter PLAX 2.9 cm IVS Diastolic Thickness 0.8 cm 0.6 - 1.0 / 0.6 - 0.9 cm LVPW Diastolic Thickness 1.0 cm 0.6 - 1.0 / 0.6 - 0.9 cm LV Relative Wall Thickness 0.5 LVOT Diameter 1.9 cm LA Volume 26.4 cm??? 18 - 58 / 22 - 52 cm??? LA Volume Index 16.7 cm???/m??? 16 - 28 cm???/m??? Ascending Aorta Diameter 3.1 cm DOPPLER AV Peak Velocity 132.4 cm/s AV Peak Gradient 7.0 mmHg AV Mean Velocity 105.4 cm/s AV Mean Gradient 4.7 mmHg AV Velocity Time Integral 20.1 cm LVOT Peak Velocity 101.2 cm/s LVOT Peak Gradient 4.1 mmHg LVOT Velocity Time Integral 15.6 cm LVOT Stroke Volume 45.1 cm??? LVOT Stroke Volume Index 27.7 ml/m??? LVOT Cardiac Index 2566.8 cm???/min???m??? AV Area Cont Eq vti 2.2 cm??? AV Area Cont Eq pk 2.2 cm??? TR Peak Velocity 299.9 cm/s TR Peak Gradient 36.0 mmHg Right Atrial Pressure 20.0 mmHg Pulmonary Artery Systolic Pressu 56.0 mmHg Right Ventricular Systolic Press 56.0 mmHg PV Peak Velocity 86.7 cm/s PV Peak Gradient 3.0 mmHg FINDINGS Left Ventricle Left ventricular ejection fraction is estimated at 40-45 %. Mildly increased posterior wall thickness. Left ventricular cavity size normal. Mildly reduced global left ventricular systolic function. Right Ventricle Right ventricular dilatation with normal function. Severe pulmonary hypertension. Right Atrium Right atrium not well visualized. Left Atrium Left atrium not well visualized. Mitral Valve Mitral valve thickened. No evidence for mitral valve prolapse. No mitral stenosis. Trace mitral regurgitation. Aortic Valve Trileaflet aortic valve. No aortic valve stenosis or regurgitation. Tricuspid Valve Structurally normal tricuspid valve. No tricuspid stenosis. [id number] tricuspid regurgitation. Pulmonic Valve Structurally normal pulmonic valve. No pulmonic stenosis. Trace pulmonic regurgitation. Pericardium No pericardial effusion. Aorta Normal size aortic root and proximal ascending aorta. CONCLUSIONS Mildly impaired LV function with EF between 40 to 45% Severe pulmonary hypertension Dilated RV Mild to moderate tricuspid regurgitation No pericardial effusion Previewed by: Dr. Gaurav Marvin MD (Electronically Signed) Final Date: 24 August 2024 13:24
--- NOTE | 2024-08-24 13:39 | P.PN ---
Subjective Progress Note Date: 08/24/24 This is a 63-year-old female patient with a known history of multiple myeloma receiving chemotherapy recently, suspected lung cancer with a PET positive right upper lobe 1.7 cm spiculated nodule, chronic obstructive pulmonary disease, chronic tobacco dependence, hypertension, hypothyroidism, end-stage renal disease receiving hemodialysis. She was admitted here on 08/21/2024 with complaints of right lower extremity pain. Been undergoing evaluation. Today on August 23, 2024 she had rapid response called on her twice for increasing shortness of breath and hypoxemia. She was subsequently transferred to the intensive care unit. She was placed on BiPAP 07/27 and 100% FiO2. She continued to do poorly and was subsequently intubated and placed on the mechanical ventilator. Currently on assist-control mode at a rate of 20, tidal volume 350, FiO2 100% and a PEEP of 5. She did undergo a left subclavian triple-lumen catheter placement and a right radial arterial line placement. Chest x-ray revealed satisfactory positions of the lines. Subtle scattered opacities may represent atypical pneumonia. Finding out today she is positive for COVID-19. Arterial blood gases post intubation revealed a PaO2 greater than 420, pCO2 of 60 and a pH of 7.28. FiO2 will be decreased accordingly. White count 8.5. Hemoglobin 8.7. Platelets 404. Sodium 129. Potassium 5.7. Bicarb 24. BUN 57. Creatinine 5.92. Glucose 82. She is sedated on propofol at 15 mcg/kg/min. The patient is seen today August 24, 2024 in follow-up in the intensive care unit. She remains intubated on the mechanical ventilator and assist-control mode at a rate of 20, tidal volume 350, FiO2 50% and a PEEP of 5. Morning blood gases revealed a PaO2 of 99. pCO2 48. pH 7.35. She is still requiring norepinephrine at 7 mcg/min. Cardizem drip at 5 mg an hour. Propofol at 40 mcg/kg/min. Lactated Ringer's at 100 mL/h. She is being nourished with vital HP at 10 mL/h with a goal of 46 mL/h. She remains on Symbicort, albuterol, Decadron. She is on Lovenox for DVT prophylaxis. Protonix for GI prophylaxis. Blood cultures now showing gram-positive cocci in clusters. Sputum culture pending. Vancomycin will be given x 1 until further cultures result. White count 6.6. Hemoglobin 7.0. Platelets 352. Sodium 132. Potassium 4.8. Bicarb 25. BUN 32. Creatinine 3.32. Glucose 108. Objective - Vital Signs Vital signs: Vital Signs Temp 98.5 F 08/24/24 12:00 Pulse 77 08/24/24 13:00 Resp 23 08/24/24 12:00 BP 100/55 08/24/24 13:00 Pulse Ox 95 08/24/24 13:00 FiO2 50 08/24/24 12:15 Intake & Output 08/23/24 08/24/24 08/24/24 18:59 06:59 18:59 Intake Total 2031.447 408.860 764.023 Output Total 3930 45 Balance -1898.553 408.860 719.023 Weight 58.1 kg Intake: IV 1043 416 .9NS KVO 40 .9NS Pressure Bag 3 36 LR Bolus 1000 Lactated Ringers 1,000 ml 380 @ 50 mls/hr IV .Q20H [facility] Rx#:[id number] Intake, IV Titration 288.447 408.860 148.023 Amount Diltiazem 125 mg In 125 Sodium Chloride 0.9% 100 ml @ 5 MG/HR 5 mls/hr IV .Q24H [facility] Rx#:[id number] Lactated Ringers 1,000 ml 200 @ 50 mls/hr IV .Q20H [facility] Rx#:[id number] Norepinephrine 8 mg In 64.720 153.044 62.423 Sodium Chloride 0.9% 250 ml @ 0.03 MCG/KG/MIN 3. 106 mls/hr IV .Q24H [facility] Rx#:[id number] propofoL 1,000 mg In 23.727 130.816 85.6 Empty Bag 1 bag @ 15 MCG/ KG/MIN 4.815 mls/hr IV . [id number] [facility] Rx#:[id number] Tube Feeding 80 Hemodialysis 700 Other 120 Output: Urine 230 45 Hemodialysis 2200 Hemodialysis Net Amount 1500 Other: Voiding Method Indwelling Catheter Indwelling Catheter ABP, PAP, CO, CI - Last Documented Arterial Blood Pressure 102/53 - Exam GENERAL EXAM: Intubated, sedated, frail 63-year-old female, on the ventilator, in no apparent distress. HEAD: Normocephalic. EYES: Normal reaction of pupils, equal size. NOSE: Clear with pink turbinates. THROAT: Oral endotracheal and gastric tube secured in place. No erythema or exudates. NECK: No masses, no JVD. CHEST: No chest wall deformity. LUNGS: Equal air entry with no crackles, wheeze, rhonchi or dullness. CVS: S1 and S2 normal with no audible murmur, regular rhythm. ABDOMEN: No hepatosplenomegaly, normal bowel sounds, no guarding or rigidity. SPINE: No scoliosis or deformity SKIN: No rashes CENTRAL NERVOUS SYSTEM: No focal deficits, tone is normal in all 4 extremities. EXTREMITIES: There is no peripheral edema. No clubbing, no cyanosis. Peripheral pulses are intact. - Labs CBC & Chem 7: 08/24/24 02:05 08/24/24 02:05 Labs: Abnormal Lab Results - Last 24 Hours (Table) 08/23/24 08/23/24 08/23/24 Range/Units 13:16 13:30 16:00 RBC (3.80-5.40) m/uL Hgb (11.4-16.0) gm/dL Hct (34.0-46.0) % RDW (11.5-15.5) % ABG pH 7.28 L (7.35-7.45) ABG pCO2 60 H (35-45) mmHg ABG pO2 >420 H (83-108) mmHg ABG HCO3 28 H (21-25) mmol/L ABG Total CO2 30 H (19-24) mmol/L ABG O2 Saturation >100.0 H (94-97) % Hemoglobin 7.6 L (11.4-16.0) gm/dL Sodium (137-145) mmol/L Chloride (98-107) mmol/L BUN (7-17) mg/dL Creatinine (0.52-1.04) mg/dL Glucose (74-99) mg/dL POC Glucose (mg/dL) (70-110) mg/dL Total Protein (6.3-8.2) g/dL Albumin (3.5-5.0) g/dL Urine Protein 2+ H (Negative) Urine Blood Moderate H (Negative) Ur Leukocyte Esterase Small H (Negative) Urine WBC 7 H (0-5) /hpf Urine Bacteria Rare H (None) /hpf SARS-CoV-2 (PCR) Detected A (Not Detectd) 08/24/24 08/24/24 08/24/24 Range/Units 02:05 02:05 05:58 RBC 2.36 L (3.80-5.40) m/uL Hgb 7.0 L D (11.4-16.0) gm/dL Hct 22.5 L (34.0-46.0) % RDW 19.2 H (11.5-15.5) % ABG pH (7.35-7.45) ABG pCO2 48 H (35-45) mmHg ABG pO2 (83-108) mmHg ABG HCO3 27 H (21-25) mmol/L ABG Total CO2 28 H (19-24) mmol/L ABG O2 Saturation 98.1 H (94-97) % Hemoglobin 6.7 L* (11.4-16.0) gm/dL Sodium 132 L (137-145) mmol/L Chloride 96 L (98-107) mmol/L BUN 32 H (7-17) mg/dL Creatinine 3.32 H (0.52-1.04) mg/dL Glucose 108 H (74-99) mg/dL POC Glucose (mg/dL) (70-110) mg/dL Total Protein 5.9 L (6.3-8.2) g/dL Albumin 2.6 L (3.5-5.0) g/dL Urine Protein (Negative) Urine Blood (Negative) Ur Leukocyte Esterase (Negative) Urine WBC (0-5) /hpf Urine Bacteria (None) /hpf SARS-CoV-2 (PCR) (Not Detectd) 08/24/24 Range/Units 12:12 RBC (3.80-5.40) m/uL Hgb (11.4-16.0) gm/dL Hct (34.0-46.0) % RDW (11.5-15.5) % ABG pH (7.35-7.45) ABG pCO2 (35-45) mmHg ABG pO2 (83-108) mmHg ABG HCO3 (21-25) mmol/L ABG Total CO2 (19-24) mmol/L ABG O2 Saturation (94-97) % Hemoglobin (11.4-16.0) gm/dL Sodium (137-145) mmol/L Chloride (98-107) mmol/L BUN (7-17) mg/dL Creatinine (0.52-1.04) mg/dL Glucose (74-99) mg/dL POC Glucose (mg/dL) 140 H (70-110) mg/dL Total Protein (6.3-8.2) g/dL Albumin (3.5-5.0) g/dL Urine Protein (Negative) Urine Blood (Negative) Ur Leukocyte Esterase (Negative) Urine WBC (0-5) /hpf Urine Bacteria (None) /hpf SARS-CoV-2 (PCR) (Not Detectd) Microbiology - Last 24 Hours (Table) 08/23/24 16:08 Gram Stain - Preliminary Sputum Sputum Culture - Preliminary 08/23/24 11:00 Blood Culture Gram Stain - Preliminary Blood Blood Culture - Preliminary Molecular ID Assessment and Plan Assessment: Acute hypoxemic respiratory failure suspect secondary to an acute exacerbation of chronic obstructive pulmonary disease and fluid volume overload, CoVID infection COVID-19 infection and possible COVID-pneumonia History of multiple myeloma receiving treatment as recently as earlier this month Right upper lobe 1.7 cm spiculated lesion, PET positive History of chronic tobacco dependence Hypertension End-stage renal disease receiving hemodialysis Hypothyroidism Leg pain initially causing this admission on 08/21/2024 Plan: The patient was seen and evaluated Chest x-ray, labs and medications reviewed ABGs were reviewed Initial blood cultures reviewed Vancomycin will be given x 1 Titrate the FiO2 as tolerated Continue propofol for sedation Continue Cardizem drip Continue norepinephrine Lactated Ringer's at 100 mL/h Continue vital HP for nourishment Remains on Decadron, bronchodilators Lovenox for DVT prophylaxis Protonix for GI prophylaxis Follow-up chest x-ray, ABGs, labs in the a.m. We will continue to follow I have personally seen and examined the patient, performed the documentation and the assessment and plan as written. Number of minutes spent on the visit: 15 Dictation was produced using [employer] dictation software. Please excuse any grammatical, word or spelling errors. This patient was seen in coordination with the pulmonary/critical care physician, Dr. Wells. He did spend greater than 50% of the time evaluating, examining and developing the plan of care. He agrees to the above HPI, physical exam, assessment and plan of care as dictated by the nurse practitioner. Time with Patient: Greater than 30
--- NOTE | 2024-08-24 15:39 | P.PN ---
Subjective Patient is seen for follow-up for end-stage renal disease. Respiratory status worsened yesterday and a team was called. Patient was transferred to ICU. Patient tested positive for COVID. She has been intubated and is currently maintained on the vent with FiO2 at 50%. Also maintained on IV fluids at 100 cc an hour. Maintained on Levophed, dose has been decreased. Status post hemodialysis yesterday with UF of 1.5 L. Objective - Vital Signs Vital signs: Vital Signs Temp 98.5 F 08/24/24 12:00 Pulse 68 08/24/24 14:15 Resp 26 H 08/24/24 14:15 BP 100/55 08/24/24 13:00 Pulse Ox 97 08/24/24 14:15 FiO2 50 08/24/24 12:15 Intake & Output 08/23/24 08/24/24 08/24/24 18:59 06:59 18:59 Intake Total 2031.447 408.860 853.273 Output Total 3930 45 Balance -1898.553 408.860 808.273 Weight 58.1 kg 58.1 kg Intake: IV 1043 432 .9NS KVO 40 .9NS Pressure Bag 3 42 0.9 KVO 10 LR Bolus 1000 Lactated Ringers 1,000 ml 380 @ 50 mls/hr IV .Q20H [facility] Rx#:[id number] Intake, IV Titration 288.447 408.860 201.273 Amount Diltiazem 125 mg In 125 53.25 Sodium Chloride 0.9% 100 ml @ 5 MG/HR 5 mls/hr IV .Q24H [facility] Rx#:[id number] Lactated Ringers 1,000 ml 200 @ 50 mls/hr IV .Q20H [facility] Rx#:[id number] Norepinephrine 8 mg In 64.720 153.044 62.423 Sodium Chloride 0.9% 250 ml @ 0.03 MCG/KG/MIN 3. 106 mls/hr IV .Q24H [facility] Rx#:[id number] propofoL 1,000 mg In 23.727 130.816 85.6 Empty Bag 1 bag @ 15 MCG/ KG/MIN 4.815 mls/hr IV . [id number] [facility] Rx#:[id number] Tube Feeding 100 Hemodialysis 700 Other 120 Output: Urine 230 45 Hemodialysis 2200 Hemodialysis Net Amount 1500 Other: Voiding Method Indwelling Catheter Indwelling Catheter ABP, PAP, CO, CI - Last Documented Arterial Blood Pressure 102/54 - Exam Patient is sedated and intubated Examination of the heart S1 and S2 Examination of the lungs bilateral breath sounds are heard Abdomen is soft nontender No edema noted in the lower extremities - Labs CBC & Chem 7: 08/24/24 02:05 08/24/24 02:05 Labs: Abnormal Lab Results - Last 24 Hours (Table) 08/23/24 08/24/24 08/24/24 Range/Units 16:00 02:05 02:05 RBC 2.36 L (3.80-5.40) m/uL Hgb 7.0 L D (11.4-16.0) gm/dL Hct 22.5 L (34.0-46.0) % RDW 19.2 H (11.5-15.5) % ABG pH 7.28 L (7.35-7.45) ABG pCO2 60 H (35-45) mmHg ABG pO2 >420 H (83-108) mmHg ABG HCO3 28 H (21-25) mmol/L ABG Total CO2 30 H (19-24) mmol/L ABG O2 Saturation >100.0 H (94-97) % Hemoglobin 7.6 L (11.4-16.0) gm/dL Sodium 132 L (137-145) mmol/L Chloride 96 L (98-107) mmol/L BUN 32 H (7-17) mg/dL Creatinine 3.32 H (0.52-1.04) mg/dL Glucose 108 H (74-99) mg/dL POC Glucose (mg/dL) (70-110) mg/dL Total Protein 5.9 L (6.3-8.2) g/dL Albumin 2.6 L (3.5-5.0) g/dL 08/24/24 08/24/24 Range/Units 05:58 12:12 RBC (3.80-5.40) m/uL Hgb (11.4-16.0) gm/dL Hct (34.0-46.0) % RDW (11.5-15.5) % ABG pH (7.35-7.45) ABG pCO2 48 H (35-45) mmHg ABG pO2 (83-108) mmHg ABG HCO3 27 H (21-25) mmol/L ABG Total CO2 28 H (19-24) mmol/L ABG O2 Saturation 98.1 H (94-97) % Hemoglobin 6.7 L* (11.4-16.0) gm/dL Sodium (137-145) mmol/L Chloride (98-107) mmol/L BUN (7-17) mg/dL Creatinine (0.52-1.04) mg/dL Glucose (74-99) mg/dL POC Glucose (mg/dL) 140 H (70-110) mg/dL Total Protein (6.3-8.2) g/dL Albumin (3.5-5.0) g/dL Microbiology - Last 24 Hours (Table) 08/23/24 16:08 Gram Stain - Preliminary Sputum Sputum Culture - Preliminary 08/23/24 11:00 Blood Culture Gram Stain - Preliminary Blood Blood Culture - Preliminary Molecular ID Assessment and Plan Assessment: 1. End-stage renal disease on hemodialysis via right IJ permacath. 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 2. Right leg pain with soft tissue mass identified near the hip area. Status post pelvic CT which suggests an enlarged lymph node 3. Anemia, multifactorial associated with underlying multiple myeloma, chemotherapy and renal failure 4. Pulmonary nodule 5. Volume overload 6. Acute hypoxic respiratory failure secondary to COVID pneumonia 7. A-fib with RVR Plan: Hemodialysis in a.m. UF based on volume status and blood pressure. Can try to decrease IV fluids if patient is hemodynamically stable.
[2024-08-24 15:41] LABS: ALT 14 U/L (4-34); AST 20 U/L (14-36); African American GFR (CKD) 12 (>60 ml/min/1.73 sqM); Albumin 2.6 g/dL (3.5-5.0); Alkaline Phosphatase 45 U/L (38-126); Anion Gap 13 mmol/L; Blood Urea Nitrogen 43 mg/dL (7-17); Calcium 8.7 mg/dL (8.4-10.2); Carbon Dioxide 23 mmol/L (22-30); Chloride 96 mmol/L (98-107); Glucose 144 mg/dL (74-99); Non-African American GFR(CKD) 10 (>60 ml/min/1.73 sqM); Potassium 4.6 mmol/L (3.5-5.1); Sodium 132 mmol/L (137-145); Total Bilirubin 0.2 mg/dL (0.2-1.3); Total Protein 5.9 g/dL (6.3-8.2)
[2024-08-24 17:49] LABS: Glucose,Whole Blood 163 mg/dL (70-110)
[2024-08-25 05:08] LABS: Anisocytosis Slight; HCT 24.5 % (34.0-46.0); HGB 7.5 gm/dL (11.4-16.0); Hypochromasia Marked; MCH 29.2 pg (25.0-35.0); MCHC 30.8 g/dL (31.0-37.0); MCV 94.9 fL (80.0-100.0); Macrocytosis Slight; Mean Platelet Volume 7.8; Platelet Count 423 k/uL (150-450); RBC 2.58 m/uL (3.80-5.40); RDW 19.1 % (11.5-15.5); WBC 12.9 k/uL (3.8-10.6)
[2024-08-25 05:34] LABS: ALT 16 U/L (4-34); AST 21 U/L (14-36); Albumin 2.8 g/dL (3.5-5.0); Alkaline Phosphatase 52 U/L (38-126); Anion Gap 18 mmol/L; Blood Urea Nitrogen 58 mg/dL (7-17); Carbon Dioxide 21 mmol/L (22-30); Chloride 94 mmol/L (98-107); Glucose 134 mg/dL (74-99); Magnesium 2.7 mg/dL (1.6-2.3); Sodium 133 mmol/L (137-145); Total Bilirubin 0.2 mg/dL (0.2-1.3); Total Protein 6.4 g/dL (6.3-8.2)
[2024-08-25 05:40] LABS: African American GFR (CKD) 11 (>60 ml/min/1.73 sqM); Non-African American GFR(CKD) 10 (>60 ml/min/1.73 sqM)
[2024-08-25 05:55] LABS: ABG Base Excess -1.6 mmol/L; ABG HCO3 25 mmol/L (21-25); ABG Oxygen Saturation 96.4 % (94-97); ABG PCO2 53 mmHg (35-45); ABG PH 7.28 (7.35-7.45); ABG PO2 91 mmHg (83-108); ABG TCO2 27 mmol/L (19-24); Allen Test Performed? Yes
--- NOTE | 2024-08-25 07:02 | XR ---
EXAMINATION TYPE: XR chest 1V portable DATE OF EXAM: 08/25/2024 CLINICAL HISTORY: Difficulty breathing progress study. TECHNIQUE: Single AP portable semiupright view of the chest is obtained. COMPARISON: Chest x-ray from one day earlier older studies. FINDINGS: Stable endotracheal and orogastric tubes. Stable large bore right internal jugular dialysi s catheter. Stable left-sided subclavian central venous catheter. Stable mild cardiomegaly and chronic emphysematous change with patchy bilateral opacities. Stable spi culated just over 1.0 cm cm nodule in the right upper lobe. Osseous structures are intact. IMPRESSION: Chronic emphysematous change and mild cardiomegaly with patchy bilateral multifocal edema and/or acute infiltrates. No significant change from one day earlier. [facility], , 08/25/2024 7:00 AM
[2024-08-25 07:56] LABS: Glucose,Whole Blood 137 mg/dL (70-110)
--- NOTE | 2024-08-25 09:01 | P.PN ---
Subjective Patient is seen in follow-up for end-stage renal disease. She is maintained on hemodialysis on Tuesday schedule. Currently seen while undergoing hemodialysis. Receiving tube feeds. Intubated. On Levophed. Vital signs are stable. On Levophed. General: Resting in bed. HEENT: Intubated. LUNGS: Scattered rhonchi. HEART: Rate and Rhythm are regular.. ABDOMEN: No distention. EXTREMITITES: Trace edema. Objective - Vital Signs Vital signs: Vital Signs Temp 97.7 F 08/25/24 04:00 Pulse 120 H 08/25/24 07:00 Resp 29 H 08/25/24 07:00 BP 108/58 08/25/24 07:00 Pulse Ox 96 08/25/24 07:00 FiO2 50 08/25/24 07:45 Intake & Output 08/24/24 08/25/24 08/25/24 18:59 06:59 18:59 Intake Total 1173.034 875.380 154.612 Output Total 60 95 0 Balance 1113.034 780.380 154.612 Weight 58.1 kg 55.3 kg Intake: IV 496 446 50 .9NS Pressure Bag 66 6 0.9 KVO 50 440 50 Lactated Ringers 1,000 ml 380 @ 50 mls/hr IV .Q20H [facility] Rx#:[id number] Intake, IV Titration 347.034 179.380 104.612 Amount Diltiazem 125 mg In 53.25 Sodium Chloride 0.9% 100 ml @ 5 MG/HR 5 mls/hr IV .Q24H [facility] Rx#:[id number] Norepinephrine 8 mg In 115.736 92.068 20.082 Sodium Chloride 0.9% 250 ml @ 0.03 MCG/KG/MIN 3. 106 mls/hr IV .Q24H [facility] Rx#:[id number] propofoL 1,000 mg In 178.048 87.312 84.53 Empty Bag 1 bag @ 15 MCG/ KG/MIN 4.815 mls/hr IV . [id number] [facility] Rx#:[id number] Tube Feeding 180 250 Other 150 Output: Urine 60 95 0 Other: Voiding Method Indwelling Catheter Indwelling Catheter ABP, PAP, CO, CI - Last Documented Arterial Blood Pressure 95/51 - Labs CBC & Chem 7: 08/25/24 04:53 01/04/25 04:53 Labs: Abnormal Lab Results - Last 24 Hours (Table) 08/24/24 08/24/24 08/24/24 Range/Units 02:05 02:05 12:12 WBC (3.8-10.6) k/uL RBC (3.80-5.40) m/uL Hgb (11.4-16.0) gm/dL Hct (34.0-46.0) % MCHC (31.0-37.0) g/dL RDW (11.5-15.5) % ABG pH (7.35-7.45) ABG pCO2 (35-45) mmHg ABG Total CO2 (19-24) mmol/L Hemoglobin (11.4-16.0) gm/dL Sodium (137-145) mmol/L Chloride (98-107) mmol/L Carbon Dioxide (22-30) mmol/L BUN (7-17) mg/dL Creatinine (0.52-1.04) mg/dL Glucose (74-99) mg/dL POC Glucose (mg/dL) 140 H (70-110) mg/dL Magnesium (1.6-2.3) mg/dL Total Protein (6.3-8.2) g/dL Albumin (3.5-5.0) g/dL Procalcitonin 39.70 H (0.02-0.50) ng/mL Cortisol 34.7 H (3.1-22.4) UG/DL 08/24/24 08/24/24 08/25/24 Range/Units 15:07 17:48 04:53 WBC 12.9 H (3.8-10.6) k/uL RBC 2.58 L (3.80-5.40) m/uL Hgb 7.5 L (11.4-16.0) gm/dL Hct 24.5 L (34.0-46.0) % MCHC 30.8 L (31.0-37.0) g/dL RDW 19.1 H (11.5-15.5) % ABG pH (7.35-7.45) ABG pCO2 (35-45) mmHg ABG Total CO2 (19-24) mmol/L Hemoglobin (11.4-16.0) gm/dL Sodium 132 L (137-145) mmol/L Chloride 96 L (98-107) mmol/L Carbon Dioxide (22-30) mmol/L BUN 43 H (7-17) mg/dL Creatinine 4.22 H (0.52-1.04) mg/dL Glucose 144 H (74-99) mg/dL POC Glucose (mg/dL) 163 H (70-110) mg/dL Magnesium (1.6-2.3) mg/dL Total Protein 5.9 L (6.3-8.2) g/dL Albumin 2.6 L (3.5-5.0) g/dL Procalcitonin (0.02-0.50) ng/mL Cortisol (3.1-22.4) UG/DL 08/25/24 08/25/24 08/25/24 Range/Units 04:53 05:52 07:55 WBC (3.8-10.6) k/uL RBC (3.80-5.40) m/uL Hgb (11.4-16.0) gm/dL Hct (34.0-46.0) % MCHC (31.0-37.0) g/dL RDW (11.5-15.5) % ABG pH 7.28 L (7.35-7.45) ABG pCO2 53 H (35-45) mmHg ABG Total CO2 27 H (19-24) mmol/L Hemoglobin 7.5 L (11.4-16.0) gm/dL Sodium 133 L (137-145) mmol/L Chloride 94 L (98-107) mmol/L Carbon Dioxide 21 L (22-30) mmol/L BUN 58 H (7-17) mg/dL Creatinine 4.48 H (0.52-1.04) mg/dL Glucose 134 H (74-99) mg/dL POC Glucose (mg/dL) 137 H (70-110) mg/dL Magnesium 2.7 H (1.6-2.3) mg/dL Total Protein (6.3-8.2) g/dL Albumin 2.8 L (3.5-5.0) g/dL Procalcitonin (0.02-0.50) ng/mL Cortisol (3.1-22.4) UG/DL Microbiology - Last 24 Hours (Table) 08/23/24 11:00 Blood Culture Gram Stain - Final Blood Blood Culture - Final Staphylococcus epidermidis Coagulase Negative Staph Molecular ID 08/23/24 16:08 Gram Stain - Preliminary Sputum Sputum Culture - Preliminary Assessment and Plan Plan: Assessment: 1. End-stage renal disease maintained on hemodialysis on Tuesday schedule via permacath. 2. Acute COVID-19 infection. 3. Acute hypoxic respiratory failure. 4. A-fib with RVR status post Cardizem drip. 5. Staph epi bacteremia. Possibly contamination. 6. Right leg pain. Questionable groin mass versus enlarged lymph node. 7. Multiple myeloma. Also noted to have pulmonary nodule. Oncology following. 8. Anemia of chronic kidney disease and also likely component of underlying m ultiple myeloma. Plan: Currently seen while undergoing hemodialysis. Maintain tube feeds. Wean FiO2 and Levophed. Repeat blood cultures. Will also check blood cultures from the catheter today.
--- NOTE | 2024-08-25 09:10 | P.PN ---
Subjective Progress Note Date: 08/25/24 PROGRESS NOTE The patient is a 63-year-old female who was admitted with symptoms of progressive dyspnea, significant right groin discomfort, has a history of multiple myeloma, end-stage renal disease, lung nodules and evidence of malignancy. On presentation she was in atrial flutter with rapid ventricular response. Yesterday she became more dyspneic requiring mechanical ventilation and was transferred to the ICU. She is intubated and sedated at this time. She was in sinus mechanism for a period of time but she is in atrial fibrillation at this point. There is no evidence of ventricular ectopic activity. In the past her echocardiogram showed a preserved systolic function with mild mitral and m ild to moderate tricuspid regurgitation and moderate pulmonary hypertension. August 25: The patient remains intubated and sedated, receiving dialysis today. She is off of IV Cardizem because of pauses. She continues to be in atrial fibrillation with overall controlled ventricular response. She continues to be on norepinephrine. The plan is to continue intubation today and attempt weaning tomorrow. Echocardiogram showed an ejection fraction of 40 to 45% with mild to moderate tricuspid regurgitation Medications: Lovenox subcu, Mucinex, metoprolol tartrate 25 mg twice a day, norepinephrine PHYSICAL EXAMINATION: Blood pressure 103/60 heart rate 105, intubated and sedated LUNGS: Clear anteriorly HEART: Irregular rate and rhythm, S1, S2. No S3. Systolic ejection murmur ABDOMEN: Soft, nontender, no organomegaly EXTREMETIES: No edema, right inguinal mass LAB: Hemoglobin 7.5, pH 7.28, pO2 91. BUN 58, creatinine 4.48 IMPRESSION: 1. Acute respiratory failure with a combination of COVID infection, history of COPD and lung mass 2. Multiple myeloma 3. Atrial fibrillation and atrial flutter, off IV Cardizem because pauses. Not anticoagulated because of severe anemia 4. Anemia most likely related to the multiple myeloma 5. End-stage renal disease on hemodialysis 6. Prior history of hypertension 7. Right groin mass could be related to her malignancy PLAN: 1. Continue supportive care 2. Wean norepinephrine as tolerated 3. Depending on her progress further recommendations will be made, prognosis is guarded. Objective - Vital Signs Vital signs: Vital Signs Temp 97.7 F 08/25/24 04:00 Pulse 120 H 08/25/24 07:00 Resp 29 H 08/25/24 07:00 BP 108/58 08/25/24 07:00 Pulse Ox 96 08/25/24 07:00 FiO2 50 08/25/24 07:45 Intake & Output 08/24/24 08/25/24 08/25/24 18:59 06:59 18:59 Intake Total 1173.034 875.380 154.612 Output Total 60 95 0 Balance 1113.034 780.380 154.612 Weight 58.1 kg 55.3 kg Intake: IV 496 446 50 .9NS Pressure Bag 66 6 0.9 KVO 50 440 50 Lactated Ringers 1,000 ml 380 @ 50 mls/hr IV .Q20H [facility] Rx#:[id number] Intake, IV Titration 347.034 179.380 104.612 Amount Diltiazem 125 mg In 53.25 Sodium Chloride 0.9% 100 ml @ 5 MG/HR 5 mls/hr IV .Q24H [facility] Rx#:[id number] Norepinephrine 8 mg In 115.736 92.068 20.082 Sodium Chloride 0.9% 250 ml @ 0.03 MCG/KG/MIN 3. 106 mls/hr IV .Q24H [facility] Rx#:[id number] propofoL 1,000 mg In 178.048 87.312 84.53 Empty Bag 1 bag @ 15 MCG/ KG/MIN 4.815 mls/hr IV . [id number] [facility] Rx#:[id number] Tube Feeding 180 250 Other 150 Output: Urine 60 95 0 Other: Voiding Method Indwelling Catheter Indwelling Catheter ABP, PAP, CO, CI - Last Documented Arterial Blood Pressure 95/51 - Labs CBC & Chem 7: 08/25/24 04:53 08/25/24 04:53 Labs: Abnormal Lab Results - Last 24 Hours (Table) 08/24/24 08/24/24 08/24/24 Range/Units 02:05 02:05 12:12 WBC (3.8-10.6) k/uL RBC (3.80-5.40) m/uL Hgb (11.4-16.0) gm/dL Hct (34.0-46.0) % MCHC (31.0-37.0) g/dL RDW (11.5-15.5) % ABG pH (7.35-7.45) ABG pCO2 (35-45) mmHg ABG Total CO2 (19-24) mmol/L Hemoglobin (11.4-16.0) gm/dL Sodium (137-145) mmol/L Chloride (98-107) mmol/L Carbon Dioxide (22-30) mmol/L BUN (7-17) mg/dL Creatinine (0.52-1.04) mg/dL Glucose (74-99) mg/dL POC Glucose (mg/dL) 140 H (70-110) mg/dL Magnesium (1.6-2.3) mg/dL Total Protein (6.3-8.2) g/dL Albumin (3.5-5.0) g/dL Procalcitonin 39.70 H (0.02-0.50) ng/mL Cortisol 34.7 H (3.1-22.4) UG/DL 08/24/24 08/24/24 08/25/24 Range/Units 15:07 17:48 04:53 WBC 12.9 H (3.8-10.6) k/uL RBC 2.58 L (3.80-5.40) m/uL Hgb 7.5 L (11.4-16.0) gm/dL Hct 24.5 L (34.0-46.0) % MCHC 30.8 L (31.0-37.0) g/dL RDW 19.1 H (11.5-15.5) % ABG pH (7.35-7.45) ABG pCO2 (35-45) mmHg ABG Total CO2 (19-24) mmol/L Hemoglobin (11.4-16.0) gm/dL Sodium 132 L (137-145) mmol/L Chloride 96 L (98-107) mmol/L Carbon Dioxide (22-30) mmol/L BUN 43 H (7-17) mg/dL Creatinine 4.22 H (0.52-1.04) mg/dL Glucose 144 H (74-99) mg/dL POC Glucose (mg/dL) 163 H (70-110) mg/dL Magnesium (1.6-2.3) mg/dL Total Protein 5.9 L (6.3-8.2) g/dL Albumin 2.6 L (3.5-5.0) g/dL Procalcitonin (0.02-0.50) ng/mL Cortisol (3.1-22.4) UG/DL 08/25/24 08/25/24 08/25/24 Range/Units 04:53 05:52 07:55 WBC (3.8-10.6) k/uL RBC (3.80-5.40) m/uL Hgb (11.4-16.0) gm/dL Hct (34.0-46.0) % MCHC (31.0-37.0) g/dL RDW (11.5-15.5) % ABG pH 7.28 L (7.35-7.45) ABG pCO2 53 H (35-45) mmHg ABG Total CO2 27 H (19-24) mmol/L Hemoglobin 7.5 L (11.4-16.0) gm/dL Sodium 133 L (137-145) mmol/L Chloride 94 L (98-107) mmol/L Carbon Dioxide 21 L (22-30) mmol/L BUN 58 H (7-17) mg/dL Creatinine 4.48 H (0.52-1.04) mg/dL Glucose 134 H (74-99) mg/dL POC Glucose (mg/dL) 137 H (70-110) mg/dL Magnesium 2.7 H (1.6-2.3) mg/dL Total Protein (6.3-8.2) g/dL Albumin 2.8 L (3.5-5.0) g/dL Procalcitonin (0.02-0.50) ng/mL Cortisol (3.1-22.4) UG/DL Microbiology - Last 24 Hours (Table) 08/23/24 11:00 Blood Culture Gram Stain - Final Blood Blood Culture - Final Staphylococcus epidermidis Coagulase Negative Staph Molecular ID 08/23/24 16:08 Gram Stain - Preliminary Sputum Sputum Culture - Preliminary
[2024-08-25 11:40] LABS: Glucose,Whole Blood 119 mg/dL (70-110)
--- NOTE | 2024-08-25 11:48 | P.PN ---
Subjective Progress Note Date: 08/25/24 This is a 63-year-old female patient with a known history of multiple myeloma receiving chemotherapy recently, suspected lung cancer with a PET positive right upper lobe 1.7 cm spiculated nodule, chronic obstructive pulmonary disease, chronic tobacco dependence, hypertension, hypothyroidism, end-stage renal disease receiving hemodialysis. She was admitted here on 08/21/2024 with complaints of right lower extremity pain. Been undergoing evaluation. Today on August 23, 2024 she had rapid response called on her twice for increasing shortness of breath and hypoxemia. She was subsequently transferred to the intensive care unit. She was placed on BiPAP 07/27 and 100% FiO2. She continued to do poorly and was subsequently intubated and placed on the mechanical ventilator. Currently on assist-control mode at a rate of 20, tidal volume 350, FiO2 100% and a PEEP of 5. She did undergo a left subclavian triple-lumen catheter placement and a right radial arterial line placement. Chest x-ray revealed satisfactory positions of the lines. Subtle scattered opacities may represent atypical pneumonia. Finding out today she is positive for COVID-19. Arterial blood gases post intubation revealed a PaO2 greater than 420, pCO2 of 60 and a pH of 7.28. FiO2 will be decreased accordingly. White count 8.5. Hemoglobin 8.7. Platelets 404. Sodium 129. Potassium 5.7. Bicarb 24. BUN 57. Creatinine 5.92. Glucose 82. She is sedated on propofol at 15 mcg/kg/min. The patient is seen today August 24, 2024 in follow-up in the intensive care unit. She remains intubated on the mechanical ventilator and assist-control mode at a rate of 20, tidal volume 350, FiO2 50% and a PEEP of 5. Morning blood gases revealed a PaO2 of 99. pCO2 48. pH 7.35. She is still requiring norepinephrine at 7 mcg/min. Cardizem drip at 5 mg an hour. Propofol at 40 mcg/kg/min. Lactated Ringer's at 100 mL/h. She is being nourished with vital HP at 10 mL/h with a goal of 46 mL/h. She remains on Symbicort, albuterol, Decadron. She is on Lovenox for DVT prophylaxis. Protonix for GI prophylaxis. Blood cultures now showing gram-positive cocci in clusters. Sputum culture pending. Vancomycin will be given x 1 until further cultures result. White count 6.6. Hemoglobin 7.0. Platelets 352. Sodium 132. Potassium 4.8. Bicarb 25. BUN 32. Creatinine 3.32. Glucose 108. The patient is seen today August 25, 2024 in follow-up in the intensive care unit. She remains intubated on the mechanical ventilator currently in settings of assist-control mode at a rate of 20, tidal volume 350, FiO2 50% and a PEEP of 5. Morning blood gases revealed a PaO2 of 91. pCO2 of 53 and a pH of 7.28. Chest x-ray reveals chronic and for somatic changes with mild cardiomegaly and patchy bilateral multifocal edema. No significant change. She remains on norepinephrine at 4 mcg/min. Cardizem drip is off. She was having sinus pauses yesterday. She has issues with intermittent atrial flutter. She is sedated on propofol at 40 mcg/kg/min. Lactated Ringer's at KVO. She is being nourished with vital HP at 10 mL/h. He received vancomycin x 1 for Staphylococcus epidermidis blood culture. Sputum culture revealed no growth. White count 12.9. Hemoglobin 7.5. Platelets 423. Sodium 133. Potassium 5.0. Bicarb 21. BUN 58. Creatinine 4.48. Glucose 134. She remains on Symbicort, albuterol, Decadron. Lovenox for DVT prophylaxis. Protonix for GI prophylaxis. Objective - Vital Signs Vital signs: Vital Signs Temp 98.1 F 08/25/24 08:00 Pulse 99 08/25/24 11:15 Resp 34 H 08/25/24 11:15 BP 109/72 08/25/24 08:15 Pulse Ox 98 08/25/24 11:15 FiO2 50 08/25/24 08:00 Intake & Output 08/24/24 08/25/24 08/25/24 18:59 06:59 18:59 Intake Total 1173.034 875.380 199.536 Output Total 60 95 40 Balance 1113.034 780.380 159.536 Weight 58.1 kg 55.3 kg Intake: IV 496 446 72 .9NS Pressure Bag 66 6 12 0.9 KVO 50 440 60 Lactated Ringers 1,000 ml 380 @ 50 mls/hr IV .Q20H [facility] Rx#:[id number] Intake, IV Titration 347.034 179.380 117.536 Amount Diltiazem 125 mg In 53.25 Sodium Chloride 0.9% 100 ml @ 5 MG/HR 5 mls/hr IV .Q24H [facility] Rx#:[id number] Norepinephrine 8 mg In 115.736 92.068 33.006 Sodium Chloride 0.9% 250 ml @ 0.03 MCG/KG/MIN 3. 106 mls/hr IV .Q24H [facility] Rx#:[id number] propofoL 1,000 mg In 178.048 87.312 84.53 Empty Bag 1 bag @ 15 MCG/ KG/MIN 4.815 mls/hr IV . [id number] [facility] Rx#:[id number] Tube Feeding 180 250 10 Other 150 0 Output: Urine 60 95 40 Other: Voiding Method Indwelling Catheter Indwelling Catheter Indwelling Catheter ABP, PAP, CO, CI - Last Documented Arterial Blood Pressure 128/67 - Exam GENERAL EXAM: Intubated, sedated, 63-year-old female, in the ICU on the ventilator, in no apparent distress. HEAD: Normocephalic. EYES: Normal reaction of pupils, equal size. NOSE: Clear with pink turbinates. THROAT: Oral endotracheal and gastric tube secured in place. No erythema or exudates. NECK: No masses, no JVD. CHEST: No chest wall deformity. LUNGS: Equal air entry with no crackles, wheeze, rhonchi or dullness. CVS: S1 and S2 normal with no audible murmur, regular rhythm. ABDOMEN: No hepatosplenomegaly, normal bowel sounds, no guarding or rigidity. SPINE: No scoliosis or deformity SKIN: No rashes CENTRAL NERVOUS SYSTEM: No focal deficits, tone is normal in all 4 extremities. EXTREMITIES: There is no peripheral edema. No clubbing, no cyanosis. Peripheral pulses are intact. - Labs CBC & Chem 7: 08/25/24 04:53 08/25/24 04:53 Labs: Abnormal Lab Results - Last 24 Hours (Table) 08/24/24 08/24/24 08/24/24 Range/Units 02:05 02:05 12:12 WBC (3.8-10.6) k/uL RBC (3.80-5.40) m/uL Hgb (11.4-16.0) gm/dL Hct (34.0-46.0) % MCHC (31.0-37.0) g/dL RDW (11.5-15.5) % ABG pH (7.35-7.45) ABG pCO2 (35-45) mmHg ABG Total CO2 (19-24) mmol/L Hemoglobin (11.4-16.0) gm/dL Sodium (137-145) mmol/L Chloride (98-107) mmol/L Carbon Dioxide (22-30) mmol/L BUN (7-17) mg/dL Creatinine (0.52-1.04) mg/dL Glucose (74-99) mg/dL POC Glucose (mg/dL) 140 H (70-110) mg/dL Magnesium (1.6-2.3) mg/dL Total Protein (6.3-8.2) g/dL Albumin (3.5-5.0) g/dL Procalcitonin 39.70 H (0.02-0.50) ng/mL Cortisol 34.7 H (3.1-22.4) UG/DL 08/24/24 08/24/24 08/25/24 Range/Units 15:07 17:48 04:53 WBC 12.9 H (3.8-10.6) k/uL RBC 2.58 L (3.80-5.40) m/uL Hgb 7.5 L (11.4-16.0) gm/dL Hct 24.5 L (34.0-46.0) % MCHC 30.8 L (31.0-37.0) g/dL RDW 19.1 H (11.5-15.5) % ABG pH (7.35-7.45) ABG pCO2 (35-45) mmHg ABG Total CO2 (19-24) mmol/L Hemoglobin (11.4-16.0) gm/dL Sodium 132 L (137-145) mmol/L Chloride 96 L (98-107) mmol/L Carbon Dioxide (22-30) mmol/L BUN 43 H (7-17) mg/dL Creatinine 4.22 H (0.52-1.04) mg/dL Glucose 144 H (74-99) mg/dL POC Glucose (mg/dL) 163 H (70-110) mg/dL Magnesium (1.6-2.3) mg/dL Total Protein 5.9 L (6.3-8.2) g/dL Albumin 2.6 L (3.5-5.0) g/dL Procalcitonin (0.02-0.50) ng/mL Cortisol (3.1-22.4) UG/DL 08/25/24 08/25/24 08/25/24 Range/Units 04:53 05:52 07:55 WBC (3.8-10.6) k/uL RBC (3.80-5.40) m/uL Hgb (11.4-16.0) gm/dL Hct (34.0-46.0) % MCHC (31.0-37.0) g/dL RDW (11.5-15.5) % ABG pH 7.28 L (7.35-7.45) ABG pCO2 53 H (35-45) mmHg ABG Total CO2 27 H (19-24) mmol/L Hemoglobin 7.5 L (11.4-16.0) gm/dL Sodium 133 L (137-145) mmol/L Chloride 94 L (98-107) mmol/L Carbon Dioxide 21 L (22-30) mmol/L BUN 58 H (7-17) mg/dL Creatinine 4.48 H (0.52-1.04) mg/dL Glucose 134 H (74-99) mg/dL POC Glucose (mg/dL) 137 H (70-110) mg/dL Magnesium 2.7 H (1.6-2.3) mg/dL Total Protein (6.3-8.2) g/dL Albumin 2.8 L (3.5-5.0) g/dL Procalcitonin (0.02-0.50) ng/mL Cortisol (3.1-22.4) UG/DL Microbiology - Last 24 Hours (Table) 08/23/24 16:08 Gram Stain - Final Sputum Sputum Culture - Final 08/23/24 11:00 Blood Culture Gram Stain - Final Blood Blood Culture - Final Staphylococcus epidermidis Coagulase Negative Staph Molecular ID Assessment and Plan Assessment: Acute hypoxemic respiratory failure suspect secondary to an acute exacerbation of chronic obstructive pulmonary disease and acute exacerbation of chronic systolic congestive heart failure, CoVID infection COVID-19 infection and possible COVID-pneumonia History of multiple myeloma receiving treatment as recently as earlier this month Right upper lobe 1.7 cm spiculated lesion, PET positive History of chronic tobacco dependence Hypertension End-stage renal disease receiving hemodialysis Hypothyroidism Leg pain initially causing this admission on 08/21/2024 Plan: The patient was seen and evaluated Chest x-ray, ABGs, labs and medications reviewed Plan is for hemodialysis today Continue propofol for sedation Titrate down the norepinephrine Continue vital HP for nourishment Remains on Decadron, bronchodilators Lovenox for DVT prophylaxis Protonix for GI prophylaxis Follow-up chest x-ray, labs in the a.m. We will continue to follow I have personally seen and examined the patient, performed the documentation and the assessment and plan as written. Number of minutes spent on the visit: 15 Dictation was produced using [employer] dictation software. Please excuse any grammatical, word or spelling errors. This patient was seen in coordination with the pulmonary/critical care physicia n, Dr. Wells. He did spend greater than 50% of the time evaluating, examining and developing the plan of care. He agrees to the above HPI, physical exam, assessment and plan of care as dictated by the nurse practitioner. Time with Patient: Greater than 30
[2024-08-25] MEDS: ENOXAPARIN 30 MG/0.3 ML SYRINGE SQ SCH (13:16)
--- NOTE | 2024-08-25 14:54 | P.PN ---
Subjective Progress Note Date: 08/25/24 This is a 63-year-old white female who yesterday had developed SVT and had acute respiratory failure. The patient was transferred to the ICU and found to have COVID. Underlying history of multiple myeloma lung mass and groin pain possibly related to her malignancy. Echocardiogram is being done when I am in the room. She is sedated. 08/25. Patient seen and examined. Dr. Aguirre taking over care from Dr. Delacruz. Patient currently off Cardizem drip because of pauses. Continues to be intubated. Currently on tube feeding patient being weaned off the Levophed. REVIEW OF SYSTEMS: Review of system cannot be obtained as patient is currently intubated PHYSICAL EXAMINATION: GENERAL: The patient is intubated HEENT: Pupils are round and equally reacting to light. EOMI. No scleral icterus. No conjunctival pallor. Normocephalic, atraumatic. No pharyngeal erythema. No thyromegaly. CARDIOVASCULAR: S1 and S2 present. No murmurs, rubs, or gallops. PULMONARY: Chest is clear to auscultation, no wheezing or crackles. ABDOMEN: Soft, nontender, nondistended, normoactive bowel sounds. No palpable organomegaly. MUSCULOSKELETAL: No joint swelling or deformity. EXTREMITIES: No cyanosis, clubbing, or pedal edema. NEUROLOGICAL: Gross neurological examination did not reveal any focal deficits. SKIN: No rashes. Assessment and plan COVID-19 infection End-stage renal disease maintained on hemodialysis on Tuesday schedule via permacath. Acute COVID-19 infection. Acute hypoxic respiratory failure. A-fib with RVR Staph epi bacteremia. Right leg pain Multiple myeloma. Hypertension Hypothyroidism Anemia of chronic kidney disease and also likely component of underlying multiple myeloma. Monitor vital signs Monitor CBC Monitor CMP Continue telemetry monitoring Continue vent management per ICU Aggressive bronchopulmonary hygiene Wean off Levophed Continue Decadron Continue breathing treatments Pulmonology following Cardiology following Labs and medication were reviewed.. Continue same treatment. Continue with symptomatic treatment. Resume home medication. Monitor labs and vitals. DVT and GI prophylaxis. Further recommendations as per clinical course of the patient Dictation was produced using [employer] dictation software. please excuse any grammatical, word or spelling errors. Objective - Vital Signs Vital signs: Vital Signs Temp 97.7 F 08/25/24 04:00 Pulse 120 H 08/25/24 07:00 Resp 29 H 08/25/24 07:00 BP 108/58 08/25/24 07:00 Pulse Ox 96 08/25/24 07:00 FiO2 50 08/25/24 07:45 Intake & Output 08/24/24 08/25/24 08/25/24 18:59 06:59 18:59 Intake Total 1173.034 875.380 186.612 Output Total 60 95 40 Balance 1113.034 780.380 146.612 Weight 58.1 kg 55.3 kg Intake: IV 496 446 72 .9NS Pressure Bag 66 6 12 0.9 KVO 50 440 60 Lactated Ringers 1,000 ml 380 @ 50 mls/hr IV .Q20H [facility] Rx#:[id number] Intake, IV Titration 347.034 179.380 104.612 Amount Diltiazem 125 mg In 53.25 Sodium Chloride 0.9% 100 ml @ 5 MG/HR 5 mls/hr IV .Q24H [facility] Rx#:[id number] Norepinephrine 8 mg In 115.736 92.068 20.082 Sodium Chloride 0.9% 250 ml @ 0.03 MCG/KG/MIN 3. 106 mls/hr IV .Q24H [facility] Rx#:[id number] propofoL 1,000 mg In 178.048 87.312 84.53 Empty Bag 1 bag @ 15 MCG/ KG/MIN 4.815 mls/hr IV . [id number] [facility] Rx#:[id number] Tube Feeding 180 250 10 Other 150 0 Output: Urine 60 95 40 Other: Voiding Method Indwelling Catheter Indwelling Catheter ABP, PAP, CO, CI - Last Documented Arterial Blood Pressure 95/51 - Labs CBC & Chem 7: 08/25/24 04:53 08/25/24 04:53 Labs: Abnormal Lab Results - Last 24 Hours (Table) 08/24/24 08/24/24 08/24/24 Range/Units 02:05 02:05 12:12 WBC (3.8-10.6) k/uL RBC (3.80-5.40) m/uL Hgb (11.4-16.0) gm/dL Hct (34.0-46.0) % MCHC (31.0-37.0) g/dL RDW (11.5-15.5) % ABG pH (7.35-7.45) ABG pCO2 (35-45) mmHg ABG Total CO2 (19-24) mmol/L Hemoglobin (11.4-16.0) gm/dL Sodium (137-145) mmol/L Chloride (98-107) mmol/L Carbon Dioxide (22-30) mmol/L BUN (7-17) mg/dL Creatinine (0.52-1.04) mg/dL Glucose (74-99) mg/dL POC Glucose (mg/dL) 140 H (70-110) mg/dL Magnesium (1.6-2.3) mg/dL Total Protein (6.3-8.2) g/dL Albumin (3.5-5.0) g/dL Procalcitonin 39.70 H (0.02-0.50) ng/mL Cortisol 34.7 H (3.1-22.4) UG/DL 08/24/24 08/24/24 08/25/24 Range/Units 15:07 17:48 04:53 WBC 12.9 H (3.8-10.6) k/uL RBC 2.58 L (3.80-5.40) m/uL Hgb 7.5 L (11.4-16.0) gm/dL Hct 24.5 L (34.0-46.0) % MCHC 30.8 L (31.0-37.0) g/dL RDW 19.1 H (11.5-15.5) % ABG pH (7.35-7.45) ABG pCO2 (35-45) mmHg ABG Total CO2 (19-24) mmol/L Hemoglobin (11.4-16.0) gm/dL Sodium 132 L (137-145) mmol/L Chloride 96 L (98-107) mmol/L Carbon Dioxide (22-30) mmol/L BUN 43 H (7-17) mg/dL Creatinine 4.22 H (0.52-1.04) mg/dL Glucose 144 H (74-99) mg/dL POC Glucose (mg/dL) 163 H (70-110) mg/dL Magnesium (1.6-2.3) mg/dL Total Protein 5.9 L (6.3-8.2) g/dL Albumin 2.6 L (3.5-5.0) g/dL Procalcitonin (0.02-0.50) ng/mL Cortisol (3.1-22.4) UG/DL 08/25/24 08/25/24 08/25/24 Range/Units 04:53 05:52 07:55 WBC (3.8-10.6) k/uL RBC (3.80-5.40) m/uL Hgb (11.4-16.0) gm/dL Hct (34.0-46.0) % MCHC (31.0-37.0) g/dL RDW (11.5-15.5) % ABG pH 7.28 L (7.35-7.45) ABG pCO2 53 H (35-45) mmHg ABG Total CO2 27 H (19-24) mmol/L Hemoglobin 7.5 L (11.4-16.0) gm/dL Sodium 133 L (137-145) mmol/L Chloride 94 L (98-107) mmol/L Carbon Dioxide 21 L (22-30) mmol/L BUN 58 H (7-17) mg/dL Creatinine 4.48 H (0.52-1.04) mg/dL Glucose 134 H (74-99) mg/dL POC Glucose (mg/dL) 137 H (70-110) mg/dL Magnesium 2.7 H (1.6-2.3) mg/dL Total Protein (6.3-8.2) g/dL Albumin 2.8 L (3.5-5.0) g/dL Procalcitonin (0.02-0.50) ng/mL Cortisol (3.1-22.4) UG/DL Microbiology - Last 24 Hours (Table) 08/23/24 11:00 Blood Culture Gram Stain - Final Blood Blood Culture - Final Staphylococcus epidermidis Coagulase Negative Staph Molecular ID 08/23/24 16:08 Gram Stain - Preliminary Sputum Sputum Culture - Preliminary
[2024-08-25 17:37] LABS: Glucose,Whole Blood 137 mg/dL (70-110)
[2024-08-25 23:26] LABS: Immunoglobulin M <35.0 mg/dL (40.0-280.0)
[2024-08-25 23:42] LABS: Glucose,Whole Blood 158 mg/dL (70-110)
[2024-08-25] MEDS ORDERED: DEXTROSE 50% SYRINGE 50 ML IVP PRN ×2 (23:45)
[2024-08-25] MEDS: INSULIN ASPART (NovoLOG) 100 UNIT/ML VIAL SQ SCH (23:51)
[2024-08-26 05:34] LABS: Glucose,Whole Blood 139 mg/dL (70-110)
[2024-08-26 05:40] LABS: Anisocytosis Slight; Basophils % (A) 0 %; Eosinophils % (A) 0 %; HCT 24.6 % (34.0-46.0); HGB 7.5 gm/dL (11.4-16.0); Hypochromasia Marked; Lymphocytes # (A) 0.3 k/uL (1.0-4.8); Lymphocytes % (A) 2 %; MCH 29.4 pg (25.0-35.0); MCHC 30.5 g/dL (31.0-37.0); MCV 96.1 fL (80.0-100.0); Macrocytosis Slight; Mean Platelet Volume 7.5; Monocytes # (A) 0.2 k/uL (0-1.0); Monocytes % (A) 2 %; Neutrophils # (A) 12.7 k/uL (1.3-7.7); Neutrophils % (A) 95 %; Platelet Count 364 k/uL (150-450); RBC 2.56 m/uL (3.80-5.40); RDW 18.9 % (11.5-15.5); WBC 13.3 k/uL (3.8-10.6)
[2024-08-26 05:47] LABS: ABG Base Excess -0.4 mmol/L; ABG HCO3 27 mmol/L (21-25); ABG Oxygen Saturation 96.5 % (94-97); ABG PCO2 57 mmHg (35-45); ABG PH 7.28 (7.35-7.45); ABG PO2 90 mmHg (83-108); ABG TCO2 28 mmol/L (19-24); Allen Test Performed? Yes
[2024-08-26 05:49] LABS: ALT 14 U/L (4-34); AST 16 U/L (14-36); African American GFR (CKD) 19 (>60 ml/min/1.73 sqM); Albumin 2.7 g/dL (3.5-5.0); Alkaline Phosphatase 49 U/L (38-126); Anion Gap 11 mmol/L; Blood Urea Nitrogen 41 mg/dL (7-17); Calcium 8.9 mg/dL (8.4-10.2); Carbon Dioxide 24 mmol/L (22-30); Chloride 98 mmol/L (98-107); Glucose 137 mg/dL (74-99); Magnesium 2.3 mg/dL (1.6-2.3); Non-African American GFR(CKD) 16 (>60 ml/min/1.73 sqM); Potassium 5.1 mmol/L (3.5-5.1); Sodium 133 mmol/L (137-145); Total Bilirubin 0.2 mg/dL (0.2-1.3); Total Protein 6.3 g/dL (6.3-8.2)
--- NOTE | 2024-08-26 07:00 | XR ---
EXAMINATION TYPE: XR chest 1V portable DATE OF EXAM: 08/26/2024 CLINICAL HISTORY: Difficulty breathing progress study. TECHNIQUE: 2 AP frontal semiupright views of the chest are obtained. COMPARISON: Chest x-ray from one day earlier and older studies. FINDINGS: Stable endotracheal and orogastric tubes. Stable large bore right internal jugular dialysi s catheter. Stable left-sided subclavian central venous catheter. Stable mild cardiomegaly and chronic emphysematous change with patchy bilateral opacities and small t o tiny left pleural effusion. Spiculated approximate 1.0 cm cm nodule in the right upper lobe is rede monstrated. Osseous structures are intact. IMPRESSION: Chronic emphysematous change and mild cardiomegaly with small to tiny left pleural effusi on and patchy bilateral multifocal edema and/or acute infiltrates. No significant change from one day earlier. [facility] Chantel Pleitez, , 08/26/2024 6:58 AM
--- NOTE | 2024-08-26 09:28 | P.PN ---
Subjective Progress Note Date: 08/26/24 PROGRESS NOTE The patient is a 63-year-old female who was admitted with symptoms of progressive dyspnea, significant right groin discomfort, has a history of multiple myeloma, end-stage renal disease, lung nodules and evidence of malignancy. On presentation she was in atrial flutter with rapid ventricular response. Yesterday she became more dyspneic requiring mechanical ventilation and was transferred to the ICU. She is intubated and sedated at this time. She was in sinus mechanism for a period of time but she is in atrial fibrillation at this point. There is no evidence of ventricular ectopic activity. In the past her echocardiogram showed a preserved systolic function with mild mitral and m ild to moderate tricuspid regurgitation and moderate pulmonary hypertension. August 25: The patient remains intubated and sedated, receiving dialysis today. She is off of IV Cardizem because of pauses. She continues to be in atrial fibrillation with overall controlled ventricular response. She continues to be on norepinephrine. The plan is to continue intubation today and attempt weaning tomorrow. Echocardiogram showed an ejection fraction of 40 to 45% with mild to moderate tricuspid regurgitation August 26: She remains intubated and sedated, in sinus mechanism with frequent PACs. She continues to be on norepinephrine, there is no evidence of ventricular tachycardia. She has been receiving hemodialysis. Continues to be on metoprolol tartrate, tolerating the treatment, off IV Cardizem Medications: Lovenox subcu, Mucinex, metoprolol tartrate 25 mg twice a day, norepinephrine PHYSICAL EXAMINATION: Blood pressure 105/50 heart rate 110, intubated and sedated LUNGS: Clear anteriorly HEART: Regular rate and rhythm, with extrasystole S1, S2. No S3. Systolic ejection murmur ABDOMEN: Soft, positive bowel sounds, no organomegaly EXTREMETIES: No edema, right inguinal mass LAB: Hemoglobin 7.5, pH 7.28, pO2 91. BUN 58, creatinine 4.48 IMPRESSION: 1. Acute respiratory failure with a combination of COVID infection, history of COPD and lung mass 2. Multiple myeloma 3. Atrial fibrillation and atrial flutter, off IV Cardizem because pauses. Not anticoagulated because of severe anemia, back in sinus mechanism with multiple PACs. 4. Anemia most likely related to the multiple myeloma 5. End-stage renal disease on hemodialysis 6. Prior history of hypertension 7. Right groin mass could be related to her malignancy PLAN: 1. Continue supportive care 2. Wean norepinephrine as tolerated 3. Depending on her progress further recommendations will be made, prognosis is guarded. Objective - Vital Signs Vital signs: Vital Signs Temp 98.9 F 08/26/24 04:00 Pulse 120 H 08/26/24 07:15 Resp 26 H 08/26/24 07:15 BP 116/72 08/26/24 07:15 Pulse Ox 96 08/26/24 07:15 FiO2 50 08/26/24 08:03 Intake & Output 08/25/24 08/26/24 08/26/24 18:59 06:59 18:59 Intake Total 1009.944 848.475 74.366 Output Total 1570 40 Balance -560.056 808.475 74.366 Weight 56.5 kg Intake: IV 171 323 .9NS Pressure Bag 66 78 0.9 KVO 105 5 Lactated Ringers 1,000 ml 240 @ 20 mls/hr IV .Q24H [facility] Rx#:[id number] Intake, IV Titration 178.944 305.475 74.366 Amount Norepinephrine 8 mg In 94.414 105.475 Sodium Chloride 0.9% 250 ml @ 0.03 MCG/KG/MIN 3. 106 mls/hr IV .Q24H [facility] Rx#:[id number] propofoL 1,000 mg In 84.53 200.000 74.366 Empty Bag 1 bag @ 15 MCG/ KG/MIN 4.815 mls/hr IV . [id number] [facility] Rx#:[id number] Tube Feeding 100 130 Hemodialysis 500 Other 60 90 Output: Urine 70 40 Hemodialysis 1000 Hemodialysis Net Amount 500 Other: Voiding Method Indwelling Catheter Indwelling Catheter # Bowel Movements 0 ABP, PAP, CO, CI - Last Documented Arterial Blood Pressure 105/51 - Labs CBC & Chem 7: 08/26/24 05:21 08/26/24 05:21 Labs: Abnormal Lab Results - Last 24 Hours (Table) 08/25/24 08/25/24 08/25/24 Range/Units 11:33 11:35 17:35 WBC (3.8-10.6) k/uL RBC (3.80-5.40) m/uL Hgb (11.4-16.0) gm/dL Hct (34.0-46.0) % MCHC (31.0-37.0) g/dL RDW (11.5-15.5) % Neutrophils # (1.3-7.7) k/uL Lymphocytes # (1.0-4.8) k/uL ABG pH (7.35-7.45) ABG pCO2 (35-45) mmHg ABG HCO3 (21-25) mmol/L ABG Total CO2 (19-24) mmol/L Hemoglobin (11.4-16.0) gm/dL Sodium (137-145) mmol/L BUN (7-17) mg/dL Creatinine (0.52-1.04) mg/dL Glucose (74-99) mg/dL POC Glucose (mg/dL) 119 H 137 H (70-110) mg/dL Albumin (3.5-5.0) g/dL IgG 2036.0 H (700.0-1600.0) mg/dL IgA <65.0 L (60.0-350.0) mg/dL IgM <35.0 L (40.0-280.0) mg/dL 08/25/24 08/26/24 08/26/24 Range/Units 23:40 05:21 05:21 WBC 13.3 H (3.8-10.6) k/uL RBC 2.56 L (3.80-5.40) m/uL Hgb 7.5 L (11.4-16.0) gm/dL Hct 24.6 L (34.0-46.0) % MCHC 30.5 L (31.0-37.0) g/dL RDW 18.9 H (11.5-15.5) % Neutrophils # 12.7 H (1.3-7.7) k/uL Lymphocytes # 0.3 L (1.0-4.8) k/uL ABG pH (7.35-7.45) ABG pCO2 (35-45) mmHg ABG HCO3 (21-25) mmol/L ABG Total CO2 (19-24) mmol/L Hemoglobin (11.4-16.0) gm/dL Sodium 133 L (137-145) mmol/L BUN 41 H (7-17) mg/dL Creatinine 2.91 H (0.52-1.04) mg/dL Glucose 137 H (74-99) mg/dL POC Glucose (mg/dL) 158 H (70-110) mg/dL Albumin 2.7 L (3.5-5.0) g/dL IgG (700.0-1600.0) mg/dL IgA (60.0-350.0) mg/dL IgM (40.0-280.0) mg/dL 08/26/24 08/26/24 Range/Units 05:32 05:44 WBC (3.8-10.6) k/uL RBC (3.80-5.40) m/uL Hgb (11.4-16.0) gm/dL Hct (34.0-46.0) % MCHC (31.0-37.0) g/dL RDW (11.5-15.5) % Neutrophils # (1.3-7.7) k/uL Lymphocytes # (1.0-4.8) k/uL ABG pH 7.28 L (7.35-7.45) ABG pCO2 57 H (35-45) mmHg ABG HCO3 27 H (21-25) mmol/L ABG Total CO2 28 H (19-24) mmol/L Hemoglobin 7.2 L (11.4-16.0) gm/dL Sodium (137-145) mmol/L BUN (7-17) mg/dL Creatinine (0.52-1.04) mg/dL Glucose (74-99) mg/dL POC Glucose (mg/dL) 139 H (70-110) mg/dL Albumin (3.5-5.0) g/dL IgG (700.0-1600.0) mg/dL IgA (60.0-350.0) mg/dL IgM (40.0-280.0) mg/dL Microbiology - Last 24 Hours (Table) 08/23/24 16:08 Gram Stain - Final Sputum Sputum Culture - Final
--- NOTE | 2024-08-26 09:53 | P.PN ---
Subjective Patient is seen in follow-up for end-stage renal disease. She is maintained on hemodialysis on Tuesday schedule. No problems with dialysis yesterday. Receiving tube feeds. Intubated. On Levophed. Vital signs are stable. On Levophed. General: Resting in bed. HEENT: Intubated. LUNGS: Scattered rhonchi. HEART: Rate and Rhythm are regular.. ABDOMEN: No distention. EXTREMITITES: Trace edema. Objective - Vital Signs Vital signs: Vital Signs Temp 98.9 F 08/26/24 04:00 Pulse 120 H 08/26/24 07:15 Resp 26 H 08/26/24 07:15 BP 116/72 08/26/24 07:15 Pulse Ox 96 08/26/24 07:15 FiO2 50 08/26/24 08:03 Intake & Output 08/25/24 08/26/24 08/26/24 18:59 06:59 18:59 Intake Total 1009.944 848.475 74.366 Output Total 1570 40 Balance -560.056 808.475 74.366 Weight 56.5 kg Intake: IV 171 323 .9NS Pressure Bag 66 78 0.9 KVO 105 5 Lactated Ringers 1,000 ml 240 @ 20 mls/hr IV .Q24H [facility] Rx#:[id number] Intake, IV Titration 178.944 305.475 74.366 Amount Norepinephrine 8 mg In 94.414 105.475 Sodium Chloride 0.9% 250 ml @ 0.03 MCG/KG/MIN 3. 106 mls/hr IV .Q24H [facility] Rx#:[id number] propofoL 1,000 mg In 84.53 200.000 74.366 Empty Bag 1 bag @ 15 MCG/ KG/MIN 4.815 mls/hr IV . [id number] [facility] Rx#:[id number] Tube Feeding 100 130 Hemodialysis 500 Other 60 90 Output: Urine 70 40 Hemodialysis 1000 Hemodialysis Net Amount 500 Other: Voiding Method Indwelling Catheter Indwelling Catheter # Bowel Movements 0 ABP, PAP, CO, CI - Last Documented Arterial Blood Pressure 105/51 - Labs CBC & Chem 7: 08/26/24 05:21 08/26/24 05:21 Labs: Abnormal Lab Results - Last 24 Hours (Table) 08/25/24 08/25/24 08/25/24 Range/Units 11:33 11:35 17:35 WBC (3.8-10.6) k/uL RBC (3.80-5.40) m/uL Hgb (11.4-16.0) gm/dL Hct (34.0-46.0) % MCHC (31.0-37.0) g/dL RDW (11.5-15.5) % Neutrophils # (1.3-7.7) k/uL Lymphocytes # (1.0-4.8) k/uL ABG pH (7.35-7.45) ABG pCO2 (35-45) mmHg ABG HCO3 (21-25) mmol/L ABG Total CO2 (19-24) mmol/L Hemoglobin (11.4-16.0) gm/dL Sodium (137-145) mmol/L BUN (7-17) mg/dL Creatinine (0.52-1.04) mg/dL Glucose (74-99) mg/dL POC Glucose (mg/dL) 119 H 137 H (70-110) mg/dL Albumin (3.5-5.0) g/dL IgG 2036.0 H (700.0-1600.0) mg/dL IgA <65.0 L (60.0-350.0) mg/dL IgM <35.0 L (40.0-280.0) mg/dL 08/25/24 08/26/24 08/26/24 Range/Units 23:40 05:21 05:21 WBC 13.3 H (3.8-10.6) k/uL RBC 2.56 L (3.80-5.40) m/uL Hgb 7.5 L (11.4-16.0) gm/dL Hct 24.6 L (34.0-46.0) % MCHC 30.5 L (31.0-37.0) g/dL RDW 18.9 H (11.5-15.5) % Neutrophils # 12.7 H (1.3-7.7) k/uL Lymphocytes # 0.3 L (1.0-4.8) k/uL ABG pH (7.35-7.45) ABG pCO2 (35-45) mmHg ABG HCO3 (21-25) mmol/L ABG Total CO2 (19-24) mmol/L Hemoglobin (11.4-16.0) gm/dL Sodium 133 L (137-145) mmol/L BUN 41 H (7-17) mg/dL Creatinine 2.91 H (0.52-1.04) mg/dL Glucose 137 H (74-99) mg/dL POC Glucose (mg/dL) 158 H (70-110) mg/dL Albumin 2.7 L (3.5-5.0) g/dL IgG (700.0-1600.0) mg/dL IgA (60.0-350.0) mg/dL IgM (40.0-280.0) mg/dL 08/26/24 08/26/24 Range/Units 05:32 05:44 WBC (3.8-10.6) k/uL RBC (3.80-5.40) m/uL Hgb (11.4-16.0) gm/dL Hct (34.0-46.0) % MCHC (31.0-37.0) g/dL RDW (11.5-15.5) % Neutrophils # (1.3-7.7) k/uL Lymphocytes # (1.0-4.8) k/uL ABG pH 7.28 L (7.35-7.45) ABG pCO2 57 H (35-45) mmHg ABG HCO3 27 H (21-25) mmol/L ABG Total CO2 28 H (19-24) mmol/L Hemoglobin 7.2 L (11.4-16.0) gm/dL Sodium (137-145) mmol/L BUN (7-17) mg/dL Creatinine (0.52-1.04) mg/dL Glucose (74-99) mg/dL POC Glucose (mg/dL) 139 H (70-110) mg/dL Albumin (3.5-5.0) g/dL IgG (700.0-1600.0) mg/dL IgA (60.0-350.0) mg/dL IgM (40.0-280.0) mg/dL Microbiology - Last 24 Hours (Table) 08/23/24 16:08 Gram Stain - Final Sputum Sputum Culture - Final Assessment and Plan Plan: Assessment: 1. End-stage renal disease maintained on hemodialysis on Tuesday schedule via permacath. 2. Acute COVID-19 infection. 3. Acute hypoxic respiratory failure. 4. A-fib with RVR status post Cardizem drip. 5. Staph epi bacteremia. Possibly contamination. 6. Right leg pain. Questionable groin mass versus enlarged lymph node. 7. Multiple myeloma. Also noted to have pulmonary nodule. Oncology following. 8. Anemia of chronic kidney disease and also likely component of underlying multiple myeloma. Plan: Hemodialysis Tuesday. Maintain tube feeds. Wean FiO2 and Levophed. Follow-up blood cultures as well as culture drawn from permacath.
--- NOTE | 2024-08-26 11:57 | P.PN ---
Subjective Progress Note Date: 08/26/24 This is a 63-year-old female patient with a known history of multiple myeloma receiving chemotherapy recently, suspected lung cancer with a PET positive right upper lobe 1.7 cm spiculated nodule, chronic obstructive pulmonary disease, chronic tobacco dependence, hypertension, hypothyroidism, end-stage renal disease receiving hemodialysis. She was admitted here on 08/21/2024 with complaints of right lower extremity pain. Been undergoing evaluation. Today on August 23, 2024 she had rapid response called on her twice for increasing shortness of breath and hypoxemia. She was subsequently transferred to the intensive care unit. She was placed on BiPAP 07/27 and 100% FiO2. She continued to do poorly and was subsequently intubated and placed on the mechanical ventilator. Currently on assist-control mode at a rate of 20, tidal volume 350, FiO2 100% and a PEEP of 5. She did undergo a left subclavian triple-lumen catheter placement and a right radial arterial line placement. Chest x-ray revealed satisfactory positions of the lines. Subtle scattered opacities may represent atypical pneumonia. Finding out today she is positive for COVID-19. Arterial blood gases post intubation revealed a PaO2 greater than 420, pCO2 of 60 and a pH of 7.28. FiO2 will be decreased accordingly. White count 8.5. Hemoglobin 8.7. Platelets 404. Sodium 129. Potassium 5.7. Bicarb 24. BUN 57. Creatinine 5.92. Glucose 82. She is sedated on propofol at 15 mcg/kg/min. The patient is seen today August 24, 2024 in follow-up in the intensive care unit. She remains intubated on the mechanical ventilator and assist-control mode at a rate of 20, tidal volume 350, FiO2 50% and a PEEP of 5. Morning blood gases revealed a PaO2 of 99. pCO2 48. pH 7.35. She is still requiring norepinephrine at 7 mcg/min. Cardizem drip at 5 mg an hour. Propofol at 40 mcg/kg/min. Lactated Ringer's at 100 mL/h. She is being nourished with vital HP at 10 mL/h with a goal of 46 mL/h. She remains on Symbicort, albuterol, Decadron. She is on Lovenox for DVT prophylaxis. Protonix for GI prophylaxis. Blood cultures now showing gram-positive cocci in clusters. Sputum culture pending. Vancomycin will be given x 1 until further cultures result. White count 6.6. Hemoglobin 7.0. Platelets 352. Sodium 132. Potassium 4.8. Bicarb 25. BUN 32. Creatinine 3.32. Glucose 108. The patient is seen today August 25, 2024 in follow-up in the intensive care unit. She remains intubated on the mechanical ventilator currently in settings of assist-control mode at a rate of 20, tidal volume 350, FiO2 50% and a PEEP of 5. Morning blood gases revealed a PaO2 of 91. pCO2 of 53 and a pH of 7.28. Chest x-ray reveals chronic and for somatic changes with mild cardiomegaly and patchy bilateral multifocal edema. No significant change. She remains on norepinephrine at 4 mcg/min. Cardizem drip is off. She was having sinus pauses yesterday. She has issues with intermittent atrial flutter. She is sedated on propofol at 40 mcg/kg/min. Lactated Ringer's at KVO. She is being nourished with vital HP at 10 mL/h. He received vancomycin x 1 for Staphylococcus epidermidis blood culture. Sputum culture revealed no growth. White count 12.9. Hemoglobin 7.5. Platelets 423. Sodium 133. Potassium 5.0. Bicarb 21. BUN 58. Creatinine 4.48. Glucose 134. She remains on Symbicort, albuterol, Decadron. Lovenox for DVT prophylaxis. Protonix for GI prophylaxis. The patient is seen today August 26, 2024 in follow-up in the intensive care unit. She remains intubated on mechanical ventilator and assist-control mode with a rate of 20, tidal valve 350, FiO2 50% and a PEEP of 5. Morning blood gases revealed a PaO2 of 90. pCO2 57 and a pH of 7.28. She did receive hemodialysis with 500 mL of fluid removed yesterday. She remains on norepinephrine at 1.7 mcg/min. Propofol at 50 mcg/kg/min. Lactated Ringer's at KVO. Vital HP at 10 mL an hour with a goal of 46 mL/h. She is continued with high residuals. May need Reglan if no improvement. She remains on albuterol, Symbicort, Decadron. Lovenox for DVT prophylaxis. Show chronic and for somatic changes and mild cardiomegaly with small to tiny left pleural effusion and patchy bilateral multifocal edema and/or acute infiltrates. No significant change. Blood culture was positive for Staphylococcus epidermidis. Sputum culture revealed no growth. White count 13.3. Hemoglobin 7.5. Platelets 364. Sodium 133. Potassium 5.1. Bicarb 24. BUN 41. Creatinine 2.91. Glucose 137. Currently in a +250 mL balance. Objective - Vital Signs Vital signs: Vital Signs Temp 97.3 F L 08/26/24 08:00 Pulse 90 08/26/24 11:00 Resp 29 H 08/26/24 11:00 BP 107/63 08/26/24 08:00 Pulse Ox 95 08/26/24 11:00 FiO2 50 08/26/24 11:12 Intake & Output 08/25/24 08/26/24 08/26/24 18:59 06:59 18:59 Intake Total 1009.944 848.475 233.289 Output Total 1570 40 30 Balance -560.056 808.475 203.289 Weight 56.5 kg Intake: IV 171 323 78 .9NS Pressure Bag 66 78 18 0.9 KVO 105 5 Lactated Ringers 1,000 ml 240 60 @ 20 mls/hr IV .Q24H [facility] Rx#:[id number] Intake, IV Titration 178.944 305.475 85.289 Amount Norepinephrine 8 mg In 94.414 105.475 10.923 Sodium Chloride 0.9% 250 ml @ 0.03 MCG/KG/MIN 3. 106 mls/hr IV .Q24H [facility] Rx#:[id number] propofoL 1,000 mg In 84.53 200.000 74.366 Empty Bag 1 bag @ 15 MCG/ KG/MIN 4.815 mls/hr IV . [id number] [facility] Rx#:[id number] Tube Feeding 100 130 40 Hemodialysis 500 Other 60 90 30 Output: Urine 70 40 30 Hemodialysis 1000 Hemodialysis Net Amount 500 Other: Voiding Method Indwelling Catheter Indwelling Catheter Indwelling Catheter # Bowel Movements 0 ABP, PAP, CO, CI - Last Documented Arterial Blood Pressure 109/52 - Exam GENERAL EXAM: Intubated, sedated, 63-year-old female, on the ventilator, in no apparent distress. HEAD: Normocephalic. EYES: Normal reaction of pupils, equal size. NOSE: Clear with pink turbinates. THROAT: Oral endotracheal and gastric tube secured in place. No erythema or exudates. NECK: No masses, no JVD. CHEST: No chest wall deformity. LUNGS: Equal air entry with no crackles, wheeze, rhonchi or dullness. CVS: S1 and S2 normal with no audible murmur, regular rhythm. ABDOMEN: No hepatosplenomegaly, normal bowel sounds, no guarding or rigidity. SPINE: No scoliosis or deformity SKIN: No rashes CENTRAL NERVOUS SYSTEM: No focal deficits, tone is normal in all 4 extremities. EXTREMITIES: There is no peripheral edema. No clubbing, no cyanosis. Peripheral pulses are intact. - Labs CBC & Chem 7: 08/26/24 05:21 08/26/24 05:21 Labs: Abnormal Lab Results - Last 24 Hours (Table) 08/25/24 08/25/24 08/25/24 Range/Units 11:35 17:35 23:40 WBC (3.8-10.6) k/uL RBC (3.80-5.40) m/uL Hgb (11.4-16.0) gm/dL Hct (34.0-46.0) % MCHC (31.0-37.0) g/dL RDW (11.5-15.5) % Neutrophils # (1.3-7.7) k/uL Lymphocytes # (1.0-4.8) k/uL ABG pH (7.35-7.45) ABG pCO2 (35-45) mmHg ABG HCO3 (21-25) mmol/L ABG Total CO2 (19-24) mmol/L Hemoglobin (11.4-16.0) gm/dL Sodium (137-145) mmol/L BUN (7-17) mg/dL Creatinine (0.52-1.04) mg/dL Glucose (74-99) mg/dL POC Glucose (mg/dL) 137 H 158 H (70-110) mg/dL Albumin (3.5-5.0) g/dL IgG 2036.0 H (700.0-1600.0) mg/dL IgA <65.0 L (60.0-350.0) mg/dL IgM <35.0 L (40.0-280.0) mg/dL 08/26/24 08/26/24 08/26/24 Range/Units 05:21 05:21 05:32 WBC 13.3 H (3.8-10.6) k/uL RBC 2.56 L (3.80-5.40) m/uL Hgb 7.5 L (11.4-16.0) gm/dL Hct 24.6 L (34.0-46.0) % MCHC 30.5 L (31.0-37.0) g/dL RDW 18.9 H (11.5-15.5) % Neutrophils # 12.7 H (1.3-7.7) k/uL Lymphocytes # 0.3 L (1.0-4.8) k/uL ABG pH (7.35-7.45) ABG pCO2 (35-45) mmHg ABG HCO3 (21-25) mmol/L ABG Total CO2 (19-24) mmol/L Hemoglobin (11.4-16.0) gm/dL Sodium 133 L (137-145) mmol/L BUN 41 H (7-17) mg/dL Creatinine 2.91 H (0.52-1.04) mg/dL Glucose 137 H (74-99) mg/dL POC Glucose (mg/dL) 139 H (70-110) mg/dL Albumin 2.7 L (3.5-5.0) g/dL IgG (700.0-1600.0) mg/dL IgA (60.0-350.0) mg/dL IgM (40.0-280.0) mg/dL 08/26/24 Range/Units 05:44 WBC (3.8-10.6) k/uL RBC (3.80-5.40) m/uL Hgb (11.4-16.0) gm/dL Hct (34.0-46.0) % MCHC (31.0-37.0) g/dL RDW (11.5-15.5) % Neutrophils # (1.3-7.7) k/uL Lymphocytes # (1.0-4.8) k/uL ABG pH 7.28 L (7.35-7.45) ABG pCO2 57 H (35-45) mmHg ABG HCO3 27 H (21-25) mmol/L ABG Total CO2 28 H (19-24) mmol/L Hemoglobin 7.2 L (11.4-16.0) gm/dL Sodium (137-145) mmol/L BUN (7-17) mg/dL Creatinine (0.52-1.04) mg/dL Glucose (74-99) mg/dL POC Glucose (mg/dL) (70-110) mg/dL Albumin (3.5-5.0) g/dL IgG (700.0-1600.0) mg/dL IgA (60.0-350.0) mg/dL IgM (40.0-280.0) mg/dL Microbiology - Last 24 Hours (Table) 08/23/24 16:08 Gram Stain - Final Sputum Sputum Culture - Final Assessment and Plan Assessment: Acute hypoxemic respiratory failure suspect secondary to an acute exacerbation of chronic obstructive pulmonary disease and acute exacerbation of chronic systolic congestive heart failure, CoVID infection COVID-19 infection and possible COVID-pneumonia History of multiple myeloma receiving treatment as recently as July 2024 Right upper lobe 1.7 cm spiculated lesion, PET positive History of chronic tobacco dependence Hypertension End-stage renal disease receiving hemodialysis Hypothyroidism Leg pain initially causing this admission on 08/21/2024 Plan: The patient was seen and evaluated Chest x-ray, ABGs, labs and medications reviewed Continue propofol for sedation Titrate down the norepinephrine as tolerated Continue vital HP for nourishment Add Reglan if high residuals Remains on Decadron, bronchodilators Lovenox for DVT prophylaxis Protonix for GI prophylaxis Follow-up chest x-ray, labs in the a.m. We will continue to follow I have personally seen and examined the patient, performed the documentation and the assessment and plan as written. Number of minutes spent on the visit: 15 Dictation was produced using [employer] dictation software. Please excuse any grammatical, word or spelling errors. This patient was seen in coordination with the pulmonary/critical care physician, Dr. Wells. He did spend greater than 50% of the time evaluating, examining and developing the plan of care. He agrees to the above HPI, physical exam, assessment and plan of care as dictated by the nurse practitioner.
[2024-08-26 12:06] LABS: Glucose,Whole Blood 148 mg/dL (70-110)
--- NOTE | 2024-08-26 12:07 | P.PN ---
Subjective Progress Note Date: 08/26/24 This is a 63-year-old white female who yesterday had developed SVT and had acute respiratory failure. The patient was transferred to the ICU and found to have COVID. Underlying history of multiple myeloma lung mass and groin pain possibly related to her malignancy. Echocardiogram is being done when I am in the room. She is sedated. 08/25. Patient seen and examined. Dr. Aguirre taking over care from Dr. Delacruz. Patient currently off Cardizem drip because of pauses. Continues to be intubated. Currently on tube feeding patient being weaned off the Levophed. 08/26. Patient seen and examined. Blood work done today showed WBC 13.3, hemoglobin 7.5, platelet count 364, sodium 133, potassium 5.1, BUN 41, creatinine 2.91 continues to be on mechanical ventilation. Continues to be on Levophed. REVIEW OF SYSTEMS: Review of system cannot be obtained as patient is currently intubated PHYSICAL EXAMINATION: GENERAL: The patient is intubated HEENT: Pupils are round and equally reacting to light. EOMI. No scleral icterus. No conjunctival pallor. Normocephalic, atraumatic. No pharyngeal erythema. No thyromegaly. CARDIOVASCULAR: S1 and S2 present. No murmurs, rubs, or gallops. PULMONARY: Chest is clear to auscultation, no wheezing or crackles. ABDOMEN: Soft, nontender, nondistended, normoactive bowel sounds. No palpable organomegaly. MUSCULOSKELETAL: No joint swelling or deformity. EXTREMITIES: No cyanosis, clubbing, or pedal edema. NEUROLOGICAL: Gross neurological examination did not reveal any focal deficits. SKIN: No rashes. Assessment and plan COVID-19 infection End-stage renal disease maintained on hemodialysis on Tuesday schedule via permacath. Acute COVID-19 infection. Acute hypoxic respiratory failure. A-fib with RVR Staph epi bacteremia. Right leg pain Multiple myeloma. Hypertension Hypothyroidism Anemia of chronic kidney disease and also likely component of underlying multiple myeloma. Monitor vital signs Monitor CBC Monitor CMP Continue telemetry monitoring Continue vent management per ICU Aggressive bronchopulmonary hygiene Wean off Levophed Continue Decadron Continue breathing treatments Continue dialysis per nephrology Pulmonology following Cardiology following Labs and medication were reviewed.. Continue same treatment. Continue with symptomatic treatment. Resume home medication. Monitor labs and vitals. DVT and GI prophylaxis. Further recommendations as per clinical course of the patient Dictation was produced using [employer] dictation software. please excuse any grammatical, word or spelling errors. Objective - Vital Signs Vital signs: Vital Signs Temp 98.9 F 08/26/24 04:00 Pulse 120 H 08/26/24 07:15 Resp 26 H 08/26/24 07:15 BP 116/72 08/26/24 07:15 Pulse Ox 96 08/26/24 07:15 FiO2 50 08/26/24 08:03 Intake & Output 08/25/24 08/26/24 08/26/24 18:59 06:59 18:59 Intake Total 1009.944 848.475 74.366 Output Total 1570 40 Balance -560.056 808.475 74.366 Weight 56.5 kg Intake: IV 171 323 .9NS Pressure Bag 66 78 0.9 KVO 105 5 Lactated Ringers 1,000 ml 240 @ 20 mls/hr IV .Q24H [facility] Rx#:[id number] Intake, IV Titration 178.944 305.475 74.366 Amount Norepinephrine 8 mg In 94.414 105.475 Sodium Chloride 0.9% 250 ml @ 0.03 MCG/KG/MIN 3. 106 mls/hr IV .Q24H [facility] Rx#:[id number] propofoL 1,000 mg In 84.53 200.000 74.366 Empty Bag 1 bag @ 15 MCG/ KG/MIN 4.815 mls/hr IV . [id number] [facility] Rx#:[id number] Tube Feeding 100 130 Hemodialysis 500 Other 60 90 Output: Urine 70 40 Hemodialysis 1000 Hemodialysis Net Amount 500 Other: Voiding Method Indwelling Catheter Indwelling Catheter # Bowel Movements 0 ABP, PAP, CO, CI - Last Documented Arterial Blood Pressure 105/51 - Labs CBC & Chem 7: 08/26/24 05:21 08/26/24 05:21 Labs: Abnormal Lab Results - Last 24 Hours (Table) 08/25/24 08/25/24 08/25/24 Range/Units 11:33 11:35 17:35 WBC (3.8-10.6) k/uL RBC (3.80-5.40) m/uL Hgb (11.4-16.0) gm/dL Hct (34.0-46.0) % MCHC (31.0-37.0) g/dL RDW (11.5-15.5) % Neutrophils # (1.3-7.7) k/uL Lymphocytes # (1.0-4.8) k/uL ABG pH (7.35-7.45) ABG pCO2 (35-45) mmHg ABG HCO3 (21-25) mmol/L ABG Total CO2 (19-24) mmol/L Hemoglobin (11.4-16.0) gm/dL Sodium (137-145) mmol/L BUN (7-17) mg/dL Creatinine (0.52-1.04) mg/dL Glucose (74-99) mg/dL POC Glucose (mg/dL) 119 H 137 H (70-110) mg/dL Albumin (3.5-5.0) g/dL IgG 2036.0 H (700.0-1600.0) mg/dL IgA <65.0 L (60.0-350.0) mg/dL IgM <35.0 L (40.0-280.0) mg/dL 08/25/24 08/26/24 08/26/24 Range/Units 23:40 05:21 05:21 WBC 13.3 H (3.8-10.6) k/uL RBC 2.56 L (3.80-5.40) m/uL Hgb 7.5 L (11.4-16.0) gm/dL Hct 24.6 L (34.0-46.0) % MCHC 30.5 L (31.0-37.0) g/dL RDW 18.9 H (11.5-15.5) % Neutrophils # 12.7 H (1.3-7.7) k/uL Lymphocytes # 0.3 L (1.0-4.8) k/uL ABG pH (7.35-7.45) ABG pCO2 (35-45) mmHg ABG HCO3 (21-25) mmol/L ABG Total CO2 (19-24) mmol/L Hemoglobin (11.4-16.0) gm/dL Sodium 133 L (137-145) mmol/L BUN 41 H (7-17) mg/dL Creatinine 2.91 H (0.52-1.04) mg/dL Glucose 137 H (74-99) mg/dL POC Glucose (mg/dL) 158 H (70-110) mg/dL Albumin 2.7 L (3.5-5.0) g/dL IgG (700.0-1600.0) mg/dL IgA (60.0-350.0) mg/dL IgM (40.0-280.0) mg/dL 08/26/24 08/26/24 Range/Units 05:32 05:44 WBC (3.8-10.6) k/uL RBC (3.80-5.40) m/uL Hgb (11.4-16.0) gm/dL Hct (34.0-46.0) % MCHC (31.0-37.0) g/dL RDW (11.5-15.5) % Neutrophils # (1.3-7.7) k/uL Lymphocytes # (1.0-4.8) k/uL ABG pH 7.28 L (7.35-7.45) ABG pCO2 57 H (35-45) mmHg ABG HCO3 27 H (21-25) mmol/L ABG Total CO2 28 H (19-24) mmol/L Hemoglobin 7.2 L (11.4-16.0) gm/dL Sodium (137-145) mmol/L BUN (7-17) mg/dL Creatinine (0.52-1.04) mg/dL Glucose (74-99) mg/dL POC Glucose (mg/dL) 139 H (70-110) mg/dL Albumin (3.5-5.0) g/dL IgG (700.0-1600.0) mg/dL IgA (60.0-350.0) mg/dL IgM (40.0-280.0) mg/dL Microbiology - Last 24 Hours (Table) 08/23/24 16:08 Gram Stain - Final Sputum Sputum Culture - Final
[2024-08-26 17:28] LABS: Glucose,Whole Blood 150 mg/dL (70-110)
[2024-08-26 23:26] LABS: Glucose,Whole Blood 153 mg/dL (70-110)
[2024-08-27 00:28] LABS: Glucose,Whole Blood 148 mg/dL (70-110)
[2024-08-27 05:34] LABS: Glucose,Whole Blood 123 mg/dL (70-110)
[2024-08-27 05:44] LABS: Glucose,Whole Blood 125 mg/dL (70-110)
[2024-08-27 05:50] LABS: ABG Base Excess -2.1 mmol/L; ABG HCO3 25 mmol/L (21-25); ABG Oxygen Saturation 91.4 % (94-97); ABG PCO2 56 mmHg (35-45); ABG PH 7.26 (7.35-7.45); ABG PO2 70 mmHg (83-108); ABG TCO2 27 mmol/L (19-24); Allen Test Performed? Yes
[2024-08-27 06:20] LABS: Anisocytosis Slight; Basophils % (A) 0 %; Eosinophils % (A) 0 %; HCT 23.9 % (34.0-46.0); HGB 7.2 gm/dL (11.4-16.0); Hypochromasia Marked; Lymphocytes # (A) 0.2 k/uL (1.0-4.8); Lymphocytes % (A) 2 %; MCH 28.8 pg (25.0-35.0); MCHC 30.1 g/dL (31.0-37.0); MCV 95.6 fL (80.0-100.0); Macrocytosis Slight; Mean Platelet Volume 7.3; Monocytes # (A) 0.2 k/uL (0-1.0); Monocytes % (A) 2 %; Neutrophils # (A) 10.1 k/uL (1.3-7.7); Neutrophils % (A) 95 %; Platelet Count 333 k/uL (150-450); RDW 18.9 % (11.5-15.5); WBC 10.6 k/uL (3.8-10.6)
[2024-08-27 06:48] LABS: Anion Gap 16 mmol/L; Blood Urea Nitrogen 70 mg/dL (7-17); Carbon Dioxide 22 mmol/L (22-30); Chloride 97 mmol/L (98-107); Glucose 112 mg/dL (74-99); Potassium 5.3 mmol/L (3.5-5.1); Sodium 135 mmol/L (137-145)
[2024-08-27 06:54] LABS: African American GFR (CKD) 12 (>60 ml/min/1.73 sqM); Non-African American GFR(CKD) 10 (>60 ml/min/1.73 sqM)
--- NOTE | 2024-08-27 07:10 | XR ---
EXAMINATION TYPE: XR chest 1V portable DATE OF EXAM: 08/27/2024 5:23 AM COMPARISON: 08/26/2024 CLINICAL INDICATION: Female, 63 years old with history of mechanical ventilation, , FINDINGS: ET and NG tubes are satisfactory. Right-sided double-lumen hemodialysis catheter with tips at the mid SVC level. Left subclavian CVC tip at the lower SVC. Heart mildly enlarged. Bilateral interstitial a nd patchy opacities persist, similar to only worsened. No spiculated nodule right upper lobe. IMPRESSION: COPD with mild cardiomegaly and uncoiling multifocal patchy and interstitial infiltrates. Similar to slightly worsened. Known suspicious nodule right upper lobe. [facility], Workstation: [id number], 08/27/2024 7:08 AM
--- NOTE | 2024-08-27 08:19 | P.PN ---
Subjective Progress Note Date: 08/27/24 This is a 63-year-old female who presented to the emergency department with complaints of right lower extremity pain. Patient has a history of end-stage renal disease, as well as lung cancer and a recent diagnosis of multiple myeloma. Patient denies any trauma to leg. She reports she has had similar danial n in the past in her right lower extremity but workup has been normal. XR's showing arthritis on admission. Patient maintained on hemodialysis as an outpatient, is due for dialysis today. 08/23/2024 Patient seen and evaluated laying in bed this morning. Last night she developed SVT and was transferred to the cardiac floor. Cardiology has been consulted and the patient was started on a Cardizem drip. Patient denies any shortness of breath or chest pain at time of SVT last night. Patient had a CT of the pelvis yesterday which shows possible enlarged lymph node in the right inguinal area. 08/27/2024 Patient remains in the ICU on mechanical ventilation. She was positive for COVID last week. Patient still having tachycardia and tachypnea. Objective - Vital Signs Vital signs: Vital Signs Temp 98.7 F 08/27/24 02:00 Pulse 94 08/27/24 07:00 Resp 29 H 08/27/24 07:00 BP 106/56 08/27/24 07:00 Pulse Ox 90 L 08/27/24 06:45 FiO2 50 08/27/24 07:54 Intake & Output 08/26/24 08/27/24 08/27/24 18:59 06:59 18:59 Intake Total 826.042 785.174 56 Output Total 70 55 10 Balance 756.042 730.174 46 Weight 56.6 kg Intake: IV 286 312 26 .9NS Pressure Bag 66 72 6 Lactated Ringers 1,000 ml 220 240 20 @ 20 mls/hr IV .Q24H [facility] Rx#:[id number] Intake, IV Titration 230.042 113.174 Amount Norepinephrine 8 mg In 33.474 4.141 Sodium Chloride 0.9% 250 ml @ 0.03 MCG/KG/MIN 3. 106 mls/hr IV .Q24H [facility] Rx#:[id number] propofoL 1,000 mg In 196.568 109.033 Empty Bag 1 bag @ 15 MCG/ KG/MIN 4.815 mls/hr IV . [id number] [facility] Rx#:[id number] Tube Feeding 220 360 30 Other 90 Output: Urine 70 55 10 Other: Voiding Method Indwelling Catheter Indwelling Catheter ABP, PAP, CO, CI - Last Documented Arterial Blood Pressure 103/40 - Exam intubated - EENT Eyes: Present: PERRLA - Neck Neck: Present: normal ROM. Absent: lymphadenopathy, rigidity - Respiratory Respiratory: bilateral: CTA - Cardiovascular Rhythm: regular Heart sounds: normal: S1, S2 - Gastrointestinal General gastrointestinal: Present: soft. Absent: tenderness - Integumentary Integumentary: Present: normal, normal turgor - Musculoskeletal Musculoskeletal: Present: generalized weakness - Labs CBC & Chem 7: 08/27/24 05:33 08/27/24 05:33 Labs: Abnormal Lab Results - Last 24 Hours (Table) 08/26/24 08/26/24 08/26/24 Range/Units 12:05 17:27 23:24 RBC (3.80-5.40) m/uL Hgb (11.4-16.0) gm/dL Hct (34.0-46.0) % MCHC (31.0-37.0) g/dL RDW (11.5-15.5) % Neutrophils # (1.3-7.7) k/uL Lymphocytes # (1.0-4.8) k/uL ABG pH (7.35-7.45) ABG pCO2 (35-45) mmHg ABG pO2 (83-108) mmHg ABG Total CO2 (19-24) mmol/L ABG O2 Saturation (94-97) % Hemoglobin (11.4-16.0) gm/dL Sodium (137-145) mmol/L Potassium (3.5-5.1) mmol/L Chloride (98-107) mmol/L BUN (7-17) mg/dL Creatinine (0.52-1.04) mg/dL Glucose (74-99) mg/dL POC Glucose (mg/dL) 148 H 150 H 153 H (70-110) mg/dL 08/27/24 08/27/24 08/27/24 Range/Units 00:27 05:33 05:33 RBC 2.50 L (3.80-5.40) m/uL Hgb 7.2 L (11.4-16.0) gm/dL Hct 23.9 L (34.0-46.0) % MCHC 30.1 L (31.0-37.0) g/dL RDW 18.9 H (11.5-15.5) % Neutrophils # 10.1 H (1.3-7.7) k/uL Lymphocytes # 0.2 L (1.0-4.8) k/uL ABG pH (7.35-7.45) ABG pCO2 (35-45) mmHg ABG pO2 (83-108) mmHg ABG Total CO2 (19-24) mmol/L ABG O2 Saturation (94-97) % Hemoglobin (11.4-16.0) gm/dL Sodium 135 L (137-145) mmol/L Potassium 5.3 H (3.5-5.1) mmol/L Chloride 97 L (98-107) mmol/L BUN 70 H (7-17) mg/dL Creatinine 4.34 H (0.52-1.04) mg/dL Glucose 112 H (74-99) mg/dL POC Glucose (mg/dL) 148 H (70-110) mg/dL 08/27/24 08/27/24 08/27/24 Range/Units 05:33 05:42 05:48 RBC (3.80-5.40) m/uL Hgb (11.4-16.0) gm/dL Hct (34.0-46.0) % MCHC (31.0-37.0) g/dL RDW (11.5-15.5) % Neutrophils # (1.3-7.7) k/uL Lymphocytes # (1.0-4.8) k/uL ABG pH 7.26 L (7.35-7.45) ABG pCO2 56 H (35-45) mmHg ABG pO2 70 L (83-108) mmHg ABG Total CO2 27 H (19-24) mmol/L ABG O2 Saturation 91.4 L (94-97) % Hemoglobin 7.1 L (11.4-16.0) gm/dL Sodium (137-145) mmol/L Potassium (3.5-5.1) mmol/L Chloride (98-107) mmol/L BUN (7-17) mg/dL Creatinine (0.52-1.04) mg/dL Glucose (74-99) mg/dL POC Glucose (mg/dL) 123 H 125 H (70-110) mg/dL Microbiology - Last 24 Hours (Table) 08/25/24 12:50 Blood Culture - Preliminary Blood Assessment and Plan (1) Lung cancer Current Visit: Yes Status: Acute Code(s): C34.90 - MALIGNANT NEOPLASM OF UNSP PART OF UNSP BRONCHUS OR LUNG SNOMED Code(s): 893825740 (2) Multiple myeloma Current Visit: Yes Status: Acute Priority: High Code(s): C90.00 - MULTIPLE MYELOMA NOT HAVING ACHIEVED REMISSION SNOMED Code(s): 548520101 (3) Intractable pain Current Visit: Yes Status: Acute Priority: High Code(s): R52 - PAIN, UNSPECIFIED SNOMED Code(s): 20801938 (4) COPD (chronic obstructive pulmonary disease) Current Visit: Yes Status: Acute Code(s): J44.9 - CHRONIC OBSTRUCTIVE PULMONARY DISEASE, UNSPECIFIED SNOMED Code(s): 42086242 (5) End stage renal disease Current Visit: Yes Status: Acute Priority: High Code(s): N18.6 - END STAGE RENAL DISEASE SNOMED Code(s): 08256530 (6) Paroxysmal SVT (supraventricular tachycardia) Current Visit: Yes Status: Acute Code(s): I47.10 - SUPRAVENTRICULAR TACHYCARDIA, UNSPECIFIED SNOMED Code(s): 42965844 (7) COVID Current Visit: Yes Status: Acute Code(s): U07.1 - COVID-19 SNOMED Code(s): 826001116 Plan: Appreciate multiple consultants. Check CBC and CMP in the morning. Patient seen and evaluated by nurse practitioner, physician in agreement with plan.
--- NOTE | 2024-08-27 09:03 | P.PN ---
Subjective Progress Note Date: 08/27/24 This is a 63-year-old female patient with a known history of multiple myeloma receiving chemotherapy recently, suspected lung cancer with a PET positive right upper lobe 1.7 cm spiculated nodule, chronic obstructive pulmonary disease, chronic tobacco dependence, hypertension, hypothyroidism, end-stage renal disease receiving hemodialysis. She was admitted here on 08/21/2024 with complaints of right lower extremity pain. Been undergoing evaluation. Today on August 23, 2024 she had rapid response called on her twice for increasing shortness of breath and hypoxemia. She was subsequently transferred to the intensive care unit. She was placed on BiPAP 07/27 and 100% FiO2. She continued to do poorly and was subsequently intubated and placed on the mechanical ventilator. Currently on assist-control mode at a rate of 20, tidal volume 350, FiO2 100% and a PEEP of 5. She did undergo a left subclavian triple-lumen catheter placement and a right radial arterial line placement. Chest x-ray revealed satisfactory positions of the lines. Subtle scattered opacities may represent atypical pneumonia. Finding out today she is positive for COVID-19. Arterial blood gases post intubation revealed a PaO2 greater than 420, pCO2 of 60 and a pH of 7.28. FiO2 will be decreased accordingly. White count 8.5. Hemoglobin 8.7. Platelets 404. Sodium 129. Potassium 5.7. Bicarb 24. BUN 57. Creatinine 5.92. Glucose 82. She is sedated on propofol at 15 mcg/kg/min. The patient is seen today August 24, 2024 in follow-up in the intensive care unit. She remains intubated on the mechanical ventilator and assist-control mode at a rate of 20, tidal volume 350, FiO2 50% and a PEEP of 5. Morning blood gases revealed a PaO2 of 99. pCO2 48. pH 7.35. She is still requiring norepinephrine at 7 mcg/min. Cardizem drip at 5 mg an hour. Propofol at 40 mcg/kg/min. Lactated Ringer's at 100 mL/h. She is being nourished with vital HP at 10 mL/h with a goal of 46 mL/h. She remains on Symbicort, albuterol, Decadron. She is on Lovenox for DVT prophylaxis. Protonix for GI prophylaxis. Blood cultures now showing gram-positive cocci in clusters. Sputum culture pending. Vancomycin will be given x 1 until further cultures result. White count 6.6. Hemoglobin 7.0. Platelets 352. Sodium 132. Potassium 4.8. Bicarb 25. BUN 32. Creatinine 3.32. Glucose 108. The patient is seen today August 25, 2024 in follow-up in the intensive care unit. She remains intubated on the mechanical ventilator currently in settings of assist-control mode at a rate of 20, tidal volume 350, FiO2 50% and a PEEP of 5. Morning blood gases revealed a PaO2 of 91. pCO2 of 53 and a pH of 7.28. Chest x-ray reveals chronic and for somatic changes with mild cardiomegaly and patchy bilateral multifocal edema. No significant change. She remains on norepinephrine at 4 mcg/min. Cardizem drip is off. She was having sinus pauses yesterday. She has issues with intermittent atrial flutter. She is sedated on propofol at 40 mcg/kg/min. Lactated Ringer's at KVO. She is being nourished with vital HP at 10 mL/h. He received vancomycin x 1 for Staphylococcus epidermidis blood culture. Sputum culture revealed no growth. White count 12.9. Hemoglobin 7.5. Platelets 423. Sodium 133. Potassium 5.0. Bicarb 21. BUN 58. Creatinine 4.48. Glucose 134. She remains on Symbicort, albuterol, Decadron. Lovenox for DVT prophylaxis. Protonix for GI prophylaxis. The patient is seen today August 26, 2024 in follow-up in the intensive care unit. She remains intubated on mechanical ventilator and assist-control mode with a rate of 20, tidal valve 350, FiO2 50% and a PEEP of 5. Morning blood gases revealed a PaO2 of 90. pCO2 57 and a pH of 7.28. She did receive hemodialysis with 500 mL of fluid removed yesterday. She remains on norepinephrine at 1.7 mcg/min. Propofol at 50 mcg/kg/min. Lactated Ringer's at KVO. Vital HP at 10 mL an hour with a goal of 46 mL/h. She is continued with high residuals. May need Reglan if no improvement. She remains on albuterol, Symbicort, Decadron. Lovenox for DVT prophylaxis. Show chronic and for somatic changes and mild cardiomegaly with small to tiny left pleural effusion and patchy bilateral multifocal edema and/or acute infiltrates. No significant change. Blood culture was positive for Staphylococcus epidermidis. Sputum culture revealed no growth. White count 13.3. Hemoglobin 7.5. Platelets 364. Sodium 133. Potassium 5.1. Bicarb 24. BUN 41. Creatinine 2.91. Glucose 137. Currently in a +250 mL balance. On 08/27/2024, this patient is being seen for a follow-up. The patient remains intubated on the mechanical ventilator due to a combination of COPD and CHF exacerbation and COVID-19 infection. Noted the patient also has history of multiple myeloma receiving treatment on an outpatient basis. The patient has end-stage renal disease on hemodialysis and the patient also has history of hypertension hypothyroidism and during the course of the illness, the patient was also found to have a spiculated 1.7 cm right upper lobe lesion that was PET avid. This morning, the patient remains intubated on the mechanical ventilator. The patient is on assist-control mode at rate of 20, tidal volume of 350, FiO2 50% with a PEEP of 5. The patient remains sedated with propofol at 50 mc. The blood gases from today showed a pH of 7.26 with a pCO2 of 56 and pO2 of 70 and the chest x-ray shows stable perihilar and lower lobe pulmonary infiltrates. ET tube is around 5 cm above the danilo. The patient also has a dialysis permacath port in the right subclavian. Blood culture was positive for coagulase-negative staph and Staph epidermidis on 08/23/2024. Sputum culture was negative. The patient is currently on Decadron 8 mg p.o. daily Symbicort. No antibiotic coverage for now. is also on Lovenox for DVT prophylaxis at a dose of 30 mg subcu on a daily basis. Hemodynamically, the patient is requiring a low-dose norepinephrine for blood pressure support. Echocardiogram done on 08/23/2024 shows mild impairment of LV function with an EF of around 40 to 45% evidence of severe pulmonary hypertension and RV dilatation and estimated pulmonary artery pressures of around 56. Blood work from today shows a white cell count of 10.6, hemoglobin 7.2 and platelet count of 333. The sodium level is sodium is 135 at 135 with a potassium of 5.3, BUN 70 creatinine of 4.34. She is still on NE low dose at 0.04mc/kg/min. Her fluid balance is 1.4 L over the past 24 hours. Her last hemodialysis session was on 08/25/2024 with a total of 1 L of fluid was removed. She is on Vital HP at 30 cc. hr. Residuals are oin 250 cc range Objective - Vital Signs Vital signs: Vital Signs Temp 98.7 F 08/27/24 02:00 Pulse 89 08/27/24 05:00 Resp 24 08/27/24 05:00 BP 110/64 08/27/24 05:00 Pulse Ox 92 L 08/27/24 05:00 FiO2 50 08/27/24 04:00 Intake & Output 08/26/24 08/26/24 08/27/24 06:59 18:59 06:59 Intake Total 848.475 826.042 729.174 Output Total 40 70 50 Balance 808.475 756.042 679.174 Weight 56.5 kg 56.6 kg Intake: IV 323 286 286 .9NS Pressure Bag 78 66 66 0.9 KVO 5 Lactated Ringers 1,000 ml 240 220 220 @ 20 mls/hr IV .Q24H [facility] Rx#:[id number] Intake, IV Titration 305.475 230.042 113.174 Amount Norepinephrine 8 mg In 105.475 33.474 4.141 Sodium Chloride 0.9% 250 ml @ 0.03 MCG/KG/MIN 3. 106 mls/hr IV .Q24H [facility] Rx#:[id number] propofoL 1,000 mg In 200.000 196.568 109.033 Empty Bag 1 bag @ 15 MCG/ KG/MIN 4.815 mls/hr IV . [id number] [facility] Rx#:[id number] Tube Feeding 130 220 330 Other 90 90 Output: Urine 40 70 50 Other: Voiding Method Indwelling Catheter Indwelling Catheter Indwelling Catheter # Bowel Movements 0 ABP, PAP, CO, CI - Last Documented Arterial Blood Pressure 131/51 - Exam GENERAL EXAM: Intubated, sedated, 63-year-old female, on the ventilator, in no apparent distress. HEAD: Normocephalic. EYES: Normal reaction of pupils, equal size. NOSE: Clear with pink turbinates. THROAT: Oral endotracheal and gastric tube secured in place. No erythema or exudates. NECK: No masses, no JVD. CHEST: No chest wall deformity. LUNGS: Equal air entry with no crackles, wheeze, rhonchi or dullness. CVS: S1 and S2 normal with no audible murmur, regular rhythm. ABDOMEN: No hepatosplenomegaly, normal bowel sounds, no guarding or rigidity. SPINE: No scoliosis or deformity SKIN: No rashes CENTRAL NERVOUS SYSTEM: No focal deficits, tone is normal in all 4 extremities. EXTREMITIES: There is no peripheral edema. No clubbing, no cyanosis. Peripheral pulses are intact. - Labs CBC & Chem 7: 08/27/24 05:33 08/27/24 05:33 Labs: Abnormal Lab Results - Last 24 Hours (Table) 08/26/24 08/26/24 08/26/24 Range/Units 12:05 17:27 23:24 ABG pH (7.35-7.45) ABG pCO2 (35-45) mmHg ABG pO2 (83-108) mmHg ABG Total CO2 (19-24) mmol/L ABG O2 Saturation (94-97) % Hemoglobin (11.4-16.0) gm/dL POC Glucose (mg/dL) 148 H 150 H 153 H (70-110) mg/dL 08/27/24 08/27/24 08/27/24 Range/Units 00:27 05:33 05:42 ABG pH (7.35-7.45) ABG pCO2 (35-45) mmHg ABG pO2 (83-108) mmHg ABG Total CO2 (19-24) mmol/L ABG O2 Saturation (94-97) % Hemoglobin (11.4-16.0) gm/dL POC Glucose (mg/dL) 148 H 123 H 125 H (70-110) mg/dL 08/27/24 Range/Units 05:48 ABG pH 7.26 L (7.35-7.45) ABG pCO2 56 H (35-45) mmHg ABG pO2 70 L (83-108) mmHg ABG Total CO2 27 H (19-24) mmol/L ABG O2 Saturation 91.4 L (94-97) % Hemoglobin 7.1 L (11.4-16.0) gm/dL POC Glucose (mg/dL) (70-110) mg/dL Microbiology - Last 24 Hours (Table) 08/25/24 12:50 Blood Culture - Preliminary Blood Assessment and Plan Plan: Acute hypoxemic respiratory failure suspect secondary to an acute exacerbation of chronic obstructive pulmonary disease and acute exacerbation of chronic systolic congestive heart failure, CoVID infection. Chest x-ray shows perihilar and lower lobe pulmonary infiltrates and small subpulmonic pleural effusions. The patient remains in hypercapnic respiratory failure based on today's blood gases. Remains intubated on the mechanical ventilator. Sputum culture has been negative at time of admission. She was intubated on 08/27/24 COVID-19 infection and possible COVID-pneumonia, currently on Decadron History of multiple myeloma receiving treatment as recently as July 2024, and the patient has been maintained on Revlimid that was started on 06/12/2024 with daratumumab, completed total of 3 cycles and the Velcade being held since 08/03/2024 due to cytopenias. CHF with mild impairment of LV function with an ejection fraction of 40 to 45% and RV dilatation with moderate to severe pulm hypertension with a PA pressure estimated to be at the 56 based on echocardiogram that was done on 08/24/2024. Right upper lobe 1.7 cm spiculated lesion, PET positive History of chronic tobacco dependence Hypertension End-stage renal disease receiving hemodialysis, maintained on hemodialysis on Tuesday and Saturdays via permacath. Hypothyroidism Leg pain initially causing this admission on 08/21/2024, the patient has history of chronic right hip pain and pain in the groin radiating to the right lower extremity and lateral hip. Right femur/hip and pelvic x-ray showed moderate degenerative changes. Bone scan on 08/09/2024 showed no hip fracture and no abnormal uptake to suggest any other abnormalities Such as osseous metastases. Anemia of chronic disease in addition to multiple myeloma Plan: The patient continues to have a component of respiratory acidosis. Based on that, increase the tidal volume to 450, increase the flow to 70 and obtain a follow-up blood gas at around noontime. No plans for extubation yet. Continue propofol for sedation, cut down the sedation to maintain adequate synchrony with the mechanical ventilator. Titrate down the norepinephrine as tolerated, currently at 0.05 mcg/kg/min. Continue vital HP for nourishment Reglan if high residuals Remains on Decadron bronchodilators Lovenox for DVT prophylaxis Protonix for GI prophylaxis Hemodialysis tomorrow Critical care evaluation , done in >30 min Time with Patient: Greater than 30
[2024-08-27] MEDS: IMMUNE GLOBULIN (GAMMAGARD) 30 GM in EMPTY BAG 1 BAG IV NR (11:47)
[2024-08-27 12:02] LABS: Glucose,Whole Blood 134 mg/dL (70-110)
--- NOTE | 2024-08-27 12:06 | P.PN ---
Subjective Patient is seen for follow-up for end-stage renal disease. Patient remains on the vent. FiO2 at 50%. O2 sats are slightly lower at about 91%. Tidal volume was increased. We will arrange for hemodialysis today Patient remains on low-dose Levophed. Systolic blood pressure in the 90s. Objective - Vital Signs Vital signs: Vital Signs Temp 98.7 F 08/27/24 02:00 Pulse 101 H 08/27/24 12:00 Resp 26 H 08/27/24 12:00 BP 114/61 08/27/24 11:15 Pulse Ox 91 L 08/27/24 12:00 FiO2 50 08/27/24 11:43 Intake & Output 08/26/24 08/27/24 08/27/24 18:59 06:59 18:59 Intake Total 826.042 785.174 465.663 Output Total 70 55 20 Balance 756.042 730.174 445.663 Weight 56.6 kg Intake: IV 286 312 130 .9NS Pressure Bag 66 72 30 Lactated Ringers 1,000 ml 220 240 100 @ 20 mls/hr IV .Q24H [facility] Rx#:[id number] Intake, IV Titration 230.042 113.174 185.663 Amount Norepinephrine 8 mg In 33.474 4.141 85.663 Sodium Chloride 0.9% 250 ml @ 0.03 MCG/KG/MIN 3. 106 mls/hr IV .Q24H [facility] Rx#:[id number] propofoL 1,000 mg In 196.568 109.033 100 Empty Bag 1 bag @ 15 MCG/ KG/MIN 4.815 mls/hr IV . [id number] [facility] Rx#:[id number] Tube Feeding 220 360 150 Other 90 Output: Urine 70 55 20 Other: Voiding Method Indwelling Catheter Indwelling Catheter ABP, PAP, CO, CI - Last Documented Arterial Blood Pressure 91/45 - Exam Patient is sedated and intubated Examination of the heart S1 and S2 Examination of the lungs bilateral breath sounds are heard Abdomen is soft nontender No edema noted in the lower extremities - Labs CBC & Chem 7: 08/27/24 05:33 08/27/24 05:33 Labs: Abnormal Lab Results - Last 24 Hours (Table) 08/26/24 08/26/24 08/26/24 Range/Units 12:05 17:27 23:24 RBC (3.80-5.40) m/uL Hgb (11.4-16.0) gm/dL Hct (34.0-46.0) % MCHC (31.0-37.0) g/dL RDW (11.5-15.5) % Neutrophils # (1.3-7.7) k/uL Lymphocytes # (1.0-4.8) k/uL ABG pH (7.35-7.45) ABG pCO2 (35-45) mmHg ABG pO2 (83-108) mmHg ABG Total CO2 (19-24) mmol/L ABG O2 Saturation (94-97) % Hemoglobin (11.4-16.0) gm/dL Sodium (137-145) mmol/L Potassium (3.5-5.1) mmol/L Chloride (98-107) mmol/L BUN (7-17) mg/dL Creatinine (0.52-1.04) mg/dL Glucose (74-99) mg/dL POC Glucose (mg/dL) 148 H 150 H 153 H (70-110) mg/dL 08/27/24 08/27/24 08/27/24 Range/Units 00:27 05:33 05:33 RBC 2.50 L (3.80-5.40) m/uL Hgb 7.2 L (11.4-16.0) gm/dL Hct 23.9 L (34.0-46.0) % MCHC 30.1 L (31.0-37.0) g/dL RDW 18.9 H (11.5-15.5) % Neutrophils # 10.1 H (1.3-7.7) k/uL Lymphocytes # 0.2 L (1.0-4.8) k/uL ABG pH (7.35-7.45) ABG pCO2 (35-45) mmHg ABG pO2 (83-108) mmHg ABG Total CO2 (19-24) mmol/L ABG O2 Saturation (94-97) % Hemoglobin (11.4-16.0) gm/dL Sodium 135 L (137-145) mmol/L Potassium 5.3 H (3.5-5.1) mmol/L Chloride 97 L (98-107) mmol/L BUN 70 H (7-17) mg/dL Creatinine 4.34 H (0.52-1.04) mg/dL Glucose 112 H (74-99) mg/dL POC Glucose (mg/dL) 148 H (70-110) mg/dL 08/27/24 08/27/24 08/27/24 Range/Units 05:33 05:42 05:48 RBC (3.80-5.40) m/uL Hgb (11.4-16.0) gm/dL Hct (34.0-46.0) % MCHC (31.0-37.0) g/dL RDW (11.5-15.5) % Neutrophils # (1.3-7.7) k/uL Lymphocytes # (1.0-4.8) k/uL ABG pH 7.26 L (7.35-7.45) ABG pCO2 56 H (35-45) mmHg ABG pO2 70 L (83-108) mmHg ABG Total CO2 27 H (19-24) mmol/L ABG O2 Saturation 91.4 L (94-97) % Hemoglobin 7.1 L (11.4-16.0) gm/dL Sodium (137-145) mmol/L Potassium (3.5-5.1) mmol/L Chloride (98-107) mmol/L BUN (7-17) mg/dL Creatinine (0.52-1.04) mg/dL Glucose (74-99) mg/dL POC Glucose (mg/dL) 123 H 125 H (70-110) mg/dL 08/27/24 Range/Units 12:01 RBC (3.80-5.40) m/uL Hgb (11.4-16.0) gm/dL Hct (34.0-46.0) % MCHC (31.0-37.0) g/dL RDW (11.5-15.5) % Neutrophils # (1.3-7.7) k/uL Lymphocytes # (1.0-4.8) k/uL ABG pH (7.35-7.45) ABG pCO2 (35-45) mmHg ABG pO2 (83-108) mmHg ABG Total CO2 (19-24) mmol/L ABG O2 Saturation (94-97) % Hemoglobin (11.4-16.0) gm/dL Sodium (137-145) mmol/L Potassium (3.5-5.1) mmol/L Chloride (98-107) mmol/L BUN (7-17) mg/dL Creatinine (0.52-1.04) mg/dL Glucose (74-99) mg/dL POC Glucose (mg/dL) 134 H (70-110) mg/dL Microbiology - Last 24 Hours (Table) 08/25/24 12:50 Blood Culture - Preliminary Blood Assessment and Plan Assessment: 1. End-stage renal disease on hemodialysis via right IJ permacath. 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 2. Right leg pain with soft tissue mass identified near the hip area. Status post pelvic CT which suggests an enlarged lymph node 3. Anemia, multifactorial associated with underlying multiple myeloma, chemotherapy and renal failure 4. Pulmonary nodule 5. Volume overload 6. Acute hypoxic respiratory failure secondary to COVID pneumonia 7. A-fib with RVR Plan: Hemodialysis today as O2 sats are slightly lower.
[2024-08-27] MEDS: LACTATED RINGERS 500 ML IV SCH (12:46)
[2024-08-27 13:36] LABS: ABG Base Excess -3.3 mmol/L; ABG HCO3 23 mmol/L (21-25); ABG Oxygen Saturation 91.6 % (94-97); ABG PCO2 51 mmHg (35-45); ABG PH 7.27 (7.35-7.45); ABG PO2 71 mmHg (83-108); ABG TCO2 25 mmol/L (19-24)
[2024-08-27 13:56] LABS: Anisocytosis Slight; Basophils % (A) 0 %; Eosinophils % (A) 0 %; Hypochromasia Marked; Lymphocytes # (A) 0.1 k/uL (1.0-4.8); Lymphocytes % (A) 1 %; MCH 29.4 pg (25.0-35.0); MCHC 30.7 g/dL (31.0-37.0); MCV 95.8 fL (80.0-100.0); Macrocytosis Slight; Mean Platelet Volume 7.7; Monocytes # (A) 0.3 k/uL (0-1.0); Monocytes % (A) 3 %; Neutrophils % (A) 95 %; Platelet Count 282 k/uL (150-450); WBC 8.4 k/uL (3.8-10.6)
[2024-08-27 14:20] LABS: HGB 6.7 gm/dL (11.4-16.0)
--- NOTE | 2024-08-27 15:11 | P.PN ---
Subjective PROGRESS NOTE The patient is a 63-year-old female who was admitted with symptoms of progressive dyspnea, significant right groin discomfort, has a history of multiple myeloma, end-stage renal disease, lung nodules and evidence of malignancy. On presentation she was in atrial flutter with rapid ventricular response. Yesterday she became more dyspneic requiring mechanical ventilation and was transferred to the ICU. She is intubated and sedated at this time. She was in sinus mechanism for a period of time but she is in atrial fibrillation at this point. There is no evidence of ventricular ectopic activity. In the past her echocardiogram showed a preserved systolic function with mild mitral and mild to moderate tricuspid regurgitation and moderate pulmonary hypertension. August 25: The patient remains intubated and sedated, receiving dialysis today. She is off of IV Cardizem because of pauses. She continues to be in atrial fibrillation with overall controlled ventricular response. She continues to be on norepinephrine. The plan is to continue intubation today and attempt weaning tomorrow. Echocardiogram showed an ejection fraction of 40 to 45% with mild to moderate tricuspid regurgitation August 26: She remains intubated and sedated, in sinus mechanism with frequent PACs. She continues to be on norepinephrine, there is no evidence of ventricular tachycardia. She has been receiving hemodialysis. Continues to be on m etoprolol tartrate, tolerating the treatment, off IV Cardizem 08/27 Patient remains intubated and sedated. Currently on 50% FiO2. Low-dose norepinephrine. He remains in sinus rhythm with PACs. Remains sedated on propofol. Hemoglobin down to 6.7 however no active source of bleeding per nursing. She has not been on any anticoagulation. Medications: Lovenox subcu, Mucinex, metoprolol tartrate 25 mg twice a day, norepinephrine PHYSICAL EXAMINATION: Blood pressure 105/50 heart rate 110, intubated and sedated LUNGS: Clear anteriorly HEART: Regular rate and rhythm, with extrasystole S1, S2. No S3. Systolic ejection murmur ABDOMEN: Soft, positive bowel sounds, no organomegaly EXTREMETIES: No edema, right inguinal mass LAB: Hemoglobin 7.5, pH 7.28, pO2 91. BUN 58, creatinine 4.48 IMPRESSION: 1. Acute respiratory failure with a combination of COVID infection, history of COPD and lung mass 2. Multiple myeloma 3. Paroxysmal atrial fibrillation and atrial flutter, off IV Cardizem because pauses. Not anticoagulated because of severe anemia, back in sinus mechanism with multiple PACs. 4. Anemia most likely related to the multiple myeloma 5. End-stage renal disease on hemodialysis 6. Prior history of hypertension 7. Right groin mass could be related to her malignancy PLAN: Patient with mild decrease in hemoglobin likely multifactorial however continue to hold any anticoagulation at this time. In August of metoprolol. Dialysis as needed. Wean ventilator as needed. Prognosis guarded. Objective - Vital Signs Vital signs: Vital Signs Temp 98.4 F 08/27/24 12:30 Pulse 84 08/27/24 14:40 Resp 25 H 08/27/24 14:40 BP 108/60 08/27/24 14:40 Pulse Ox 92 L 08/27/24 14:40 FiO2 50 08/27/24 14:40 Intake & Output 08/26/24 08/27/24 08/27/24 18:59 06:59 18:59 Intake Total 826.042 785.174 663.663 Output Total 70 55 20 Balance 756.042 730.174 643.663 Weight 56.6 kg 56.6 kg Intake: IV 286 312 208 .9NS Pressure Bag 66 72 48 Lactated Ringers 1,000 ml 220 240 160 @ 20 mls/hr IV .Q24H [facility] Rx#:[id number] Intake, IV Titration 230.042 113.174 185.663 Amount Norepinephrine 8 mg In 33.474 4.141 85.663 Sodium Chloride 0.9% 250 ml @ 0.03 MCG/KG/MIN 3. 106 mls/hr IV .Q24H [facility] Rx#:[id number] propofoL 1,000 mg In 196.568 109.033 100 Empty Bag 1 bag @ 15 MCG/ KG/MIN 4.815 mls/hr IV . [id number] [facility] Rx#:[id number] Tube Feeding 220 360 240 Other 90 30 Output: Urine 70 55 20 Other: Voiding Method Indwelling Catheter Indwelling Catheter ABP, PAP, CO, CI - Last Documented Arterial Blood Pressure 96/52 - Labs CBC & Chem 7: 08/27/24 13:45 08/27/24 05:33 Labs: Abnormal Lab Results - Last 24 Hours (Table) 08/26/24 08/26/24 08/27/24 Range/Units 17:27 23:24 00:27 RBC (3.80-5.40) m/uL Hgb (11.4-16.0) gm/dL Hct (34.0-46.0) % MCHC (31.0-37.0) g/dL RDW (11.5-15.5) % Neutrophils # (1.3-7.7) k/uL Lymphocytes # (1.0-4.8) k/uL ABG pH (7.35-7.45) ABG pCO2 (35-45) mmHg ABG pO2 (83-108) mmHg ABG Total CO2 (19-24) mmol/L ABG O2 Saturation (94-97) % Hemoglobin (11.4-16.0) gm/dL Sodium (137-145) mmol/L Potassium (3.5-5.1) mmol/L Chloride (98-107) mmol/L BUN (7-17) mg/dL Creatinine (0.52-1.04) mg/dL Glucose (74-99) mg/dL POC Glucose (mg/dL) 150 H 153 H 148 H (70-110) mg/dL 08/27/24 08/27/24 08/27/24 Range/Units 05:33 05:33 05:33 RBC 2.50 L (3.80-5.40) m/uL Hgb 7.2 L (11.4-16.0) gm/dL Hct 23.9 L (34.0-46.0) % MCHC 30.1 L (31.0-37.0) g/dL RDW 18.9 H (11.5-15.5) % Neutrophils # 10.1 H (1.3-7.7) k/uL Lymphocytes # 0.2 L (1.0-4.8) k/uL ABG pH (7.35-7.45) ABG pCO2 (35-45) mmHg ABG pO2 (83-108) mmHg ABG Total CO2 (19-24) mmol/L ABG O2 Saturation (94-97) % Hemoglobin (11.4-16.0) gm/dL Sodium 135 L (137-145) mmol/L Potassium 5.3 H (3.5-5.1) mmol/L Chloride 97 L (98-107) mmol/L BUN 70 H (7-17) mg/dL Creatinine 4.34 H (0.52-1.04) mg/dL Glucose 112 H (74-99) mg/dL POC Glucose (mg/dL) 123 H (70-110) mg/dL 08/27/24 08/27/24 08/27/24 Range/Units 05:42 05:48 12:01 RBC (3.80-5.40) m/uL Hgb (11.4-16.0) gm/dL Hct (34.0-46.0) % MCHC (31.0-37.0) g/dL RDW (11.5-15.5) % Neutrophils # (1.3-7.7) k/uL Lymphocytes # (1.0-4.8) k/uL ABG pH 7.26 L (7.35-7.45) ABG pCO2 56 H (35-45) mmHg ABG pO2 70 L (83-108) mmHg ABG Total CO2 27 H (19-24) mmol/L ABG O2 Saturation 91.4 L (94-97) % Hemoglobin 7.1 L (11.4-16.0) gm/dL Sodium (137-145) mmol/L Potassium (3.5-5.1) mmol/L Chloride (98-107) mmol/L BUN (7-17) mg/dL Creatinine (0.52-1.04) mg/dL Glucose (74-99) mg/dL POC Glucose (mg/dL) 125 H 134 H (70-110) mg/dL 08/27/24 08/27/24 Range/Units 13:30 13:45 RBC 2.30 L (3.80-5.40) m/uL Hgb 6.7 L* (11.4-16.0) gm/dL Hct 22.0 L (34.0-46.0) % MCHC 30.7 L (31.0-37.0) g/dL RDW 19.0 H (11.5-15.5) % Neutrophils # 8.0 H (1.3-7.7) k/uL Lymphocytes # 0.1 L (1.0-4.8) k/uL ABG pH 7.27 L (7.35-7.45) ABG pCO2 51 H (35-45) mmHg ABG pO2 71 L (83-108) mmHg ABG Total CO2 25 H (19-24) mmol/L ABG O2 Saturation 91.6 L (94-97) % Hemoglobin 6.6 L* (11.4-16.0) gm/dL Sodium (137-145) mmol/L Potassium (3.5-5.1) mmol/L Chloride (98-107) mmol/L BUN (7-17) mg/dL Creatinine (0.52-1.04) mg/dL Glucose (74-99) mg/dL POC Glucose (mg/dL) (70-110) mg/dL Microbiology - Last 24 Hours (Table) 08/25/24 12:50 Blood Culture - Preliminary Blood
[2024-08-27 17:34] LABS: Glucose,Whole Blood 160 mg/dL (70-110)
[2024-08-27 17:40] LABS: Glucose,Whole Blood 156 mg/dL (70-110)
--- NOTE | 2024-08-27 19:51 | P.PN ---
Subjective Progress Note Date: 08/27/24 Seen in ICU at todays visit, remains ventilated. Positive for COVID infection. WBC 10.6, hgb 7.2, plt 333 Objective - Vital Signs Vital signs: Vital Signs Temp 98.7 F 08/27/24 02:00 Pulse 98 08/27/24 11:15 Resp 33 H 08/27/24 11:15 BP 114/61 08/27/24 11:15 Pulse Ox 91 L 08/27/24 11:15 FiO2 50 08/27/24 08:00 Intake & Output 08/26/24 08/27/24 08/27/24 18:59 06:59 18:59 Intake Total 826.042 785.174 156 Output Total 70 55 10 Balance 756.042 730.174 146 Weight 56.6 kg Intake: IV 286 312 26 .9NS Pressure Bag 66 72 6 Lactated Ringers 1,000 ml 220 240 20 @ 20 mls/hr IV .Q24H [facility] Rx#:[id number] Intake, IV Titration 230.042 113.174 100 Amount Norepinephrine 8 mg In 33.474 4.141 Sodium Chloride 0.9% 250 ml @ 0.03 MCG/KG/MIN 3. 106 mls/hr IV .Q24H [facility] Rx#:[id number] propofoL 1,000 mg In 196.568 109.033 100 Empty Bag 1 bag @ 15 MCG/ KG/MIN 4.815 mls/hr IV . [id number] [facility] Rx#:[id number] Tube Feeding 220 360 30 Other 90 Output: Urine 70 55 10 Other: Voiding Method Indwelling Catheter Indwelling Catheter ABP, PAP, CO, CI - Last Documented Arterial Blood Pressure 118/49 - Constitutional General appearance: Present: no acute distress - Respiratory Details: ventilated breath sounds - Cardiovascular Details: skin warm and dry - Integumentary Integumentary: Present: pale. Absent: cyanotic - Labs CBC & Chem 7: 08/27/24 13:45 08/27/24 05:33 Labs: Abnormal Lab Results - Last 24 Hours (Table) 08/26/24 08/26/24 08/26/24 Range/Units 12:05 17:27 23:24 RBC (3.80-5.40) m/uL Hgb (11.4-16.0) gm/dL Hct (34.0-46.0) % MCHC (31.0-37.0) g/dL RDW (11.5-15.5) % Neutrophils # (1.3-7.7) k/uL Lymphocytes # (1.0-4.8) k/uL ABG pH (7.35-7.45) ABG pCO2 (35-45) mmHg ABG pO2 (83-108) mmHg ABG Total CO2 (19-24) mmol/L ABG O2 Saturation (94-97) % Hemoglobin (11.4-16.0) gm/dL Sodium (137-145) mmol/L Potassium (3.5-5.1) mmol/L Chloride (98-107) mmol/L BUN (7-17) mg/dL Creatinine (0.52-1.04) mg/dL Glucose (74-99) mg/dL POC Glucose (mg/dL) 148 H 150 H 153 H (70-110) mg/dL 08/27/24 08/27/24 08/27/24 Range/Units 00:27 05:33 05:33 RBC 2.50 L (3.80-5.40) m/uL Hgb 7.2 L (11.4-16.0) gm/dL Hct 23.9 L (34.0-46.0) % MCHC 30.1 L (31.0-37.0) g/dL RDW 18.9 H (11.5-15.5) % Neutrophils # 10.1 H (1.3-7.7) k/uL Lymphocytes # 0.2 L (1.0-4.8) k/uL ABG pH (7.35-7.45) ABG pCO2 (35-45) mmHg ABG pO2 (83-108) mmHg ABG Total CO2 (19-24) mmol/L ABG O2 Saturation (94-97) % Hemoglobin (11.4-16.0) gm/dL Sodium 135 L (137-145) mmol/L Potassium 5.3 H (3.5-5.1) mmol/L Chloride 97 L (98-107) mmol/L BUN 70 H (7-17) mg/dL Creatinine 4.34 H (0.52-1.04) mg/dL Glucose 112 H (74-99) mg/dL POC Glucose (mg/dL) 148 H (70-110) mg/dL 08/27/24 08/27/24 08/27/24 Range/Units 05:33 05:42 05:48 RBC (3.80-5.40) m/uL Hgb (11.4-16.0) gm/dL Hct (34.0-46.0) % MCHC (31.0-37.0) g/dL RDW (11.5-15.5) % Neutrophils # (1.3-7.7) k/uL Lymphocytes # (1.0-4.8) k/uL ABG pH 7.26 L (7.35-7.45) ABG pCO2 56 H (35-45) mmHg ABG pO2 70 L (83-108) mmHg ABG Total CO2 27 H (19-24) mmol/L ABG O2 Saturation 91.4 L (94-97) % Hemoglobin 7.1 L (11.4-16.0) gm/dL Sodium (137-145) mmol/L Potassium (3.5-5.1) mmol/L Chloride (98-107) mmol/L BUN (7-17) mg/dL Creatinine (0.52-1.04) mg/dL Glucose (74-99) mg/dL POC Glucose (mg/dL) 123 H 125 H (70-110) mg/dL Microbiology - Last 24 Hours (Table) 08/25/24 12:50 Blood Culture - Preliminary Blood Assessment and Plan (1) End stage renal disease Current Visit: Yes Status: Acute Priority: High Code(s): N18.6 - END STAGE RENAL DISEASE SNOMED Code(s): 95274988 (2) Intractable pain Current Visit: Yes Status: Acute Priority: High Code(s): R52 - PAIN, UNSPECIFIED SNOMED Code(s): 51147505 (3) Multiple myeloma Current Visit: Yes Status: Acute Priority: High Code(s): C90.00 - MULTIPLE MYELOMA NOT HAVING ACHIEVED REMISSION SNOMED Code(s): 316815171 Plan: Intractable RLE pain: Presented to emergency room with complaints of worsening right lower extremity pain over the last 24 hours. Patient does have history of chronic right hip pain. She reports pain is in her right groin radiating down her leg, but typically pain is more lateral towards the hip. Denies low back pain, RLE num bness tingling, and leg swelling. Denies any known injury. -Right femur/hip and pelvis x-rays showing moderate degenerative changes. Of note pt did have NM bone scan on 08/09/24 which showed no hip fracture and no abnormal uptake to suggest osseous mets. -Palpable approx 7 cm mass noted in right groin. Right groin US obtained showing moderate right hip osteoarthritis with moderate joint effusion. A 7.9 x 4.1 x 2.4 cm isoechoic abnormality seems to surround the right hip, could represent large ganglion cyst containing internal thickened material versus a soft tissue mass. CT pelvis was subsequently obtained which revealed right inguinal mass lateral to the vascular structures appears homogeneous, adenopathy is favored. Also noted a hypodensity measuring 0.9 cm within the anterior left inguinal thigh musculature, likely a hematoma -IR consult placed for core biopsy of inguinal mass. Spoke with interventional radiology, after further review, believe right inguinal mass is consistent with joint effusion. Recommending MRI to further evaluate. Once pt more stable will obtain further imaging COVID, hypoxia: Pt had became more confused with labored breathing noted -Viral panel positive for COVID, she has since been intubated -IVIG will be given for additional immune support due to hypogammaglobulinemia and active COVID infection Multiple myeloma: -Oncology history as dictated in the HPI -RVD was initiated on 06/12/24 with daratumumab started with cycle 2. She most recently completed cycle 3 on 08/13, with velcade being held since 08/03 due to cytopenias -Hgb stable in the 7-8 range, white counts adequate. Continue to monitor CBC -Anemia secondary to MM, chemo effects and ESRD. Continue to monitor CBC. Transfuse for hgb < 7, with irradiated blood products -Treatment will be on hold until pt acutely recovers
[2024-08-27] MEDS: DILTIAZEM DRIP BOLUS FROM BAG 1 MG SOLN IV STA (20:02)
[2024-08-27] MEDS: DILTIAZEM 125 MG in SODIUM CHLORIDE 0.9% 100 ML IV SCH (20:02)
[2024-08-27 23:14] LABS: Glucose,Whole Blood 123 mg/dL (70-110)
[2024-08-28 01:52] LABS: Anisocytosis Slight; HCT 20.5 % (34.0-46.0); Hypochromasia Marked; MCH 29.7 pg (25.0-35.0); MCHC 32.1 g/dL (31.0-37.0); MCV 92.6 fL (80.0-100.0); Mean Platelet Volume 7.1; Platelet Count 281 k/uL (150-450); RBC 2.22 m/uL (3.80-5.40); RDW 19.3 % (11.5-15.5); WBC 9.5 k/uL (3.8-10.6)
[2024-08-28] MEDS: VASOPRESSIN 60 UNIT in SODIUM CHLORIDE 0.9% 150 ML IV SCH (02:03)
[2024-08-28 02:51] LABS: HGB 6.6 gm/dL (11.4-16.0)
[2024-08-28 04:32] LABS: ABG Base Excess 3.5 mmol/L; ABG HCO3 29 mmol/L (21-25); ABG Oxygen Saturation 92.1 % (94-97); ABG PCO2 50 mmHg (35-45); ABG PH 7.38 (7.35-7.45); ABG PO2 66 mmHg (83-108); ABG TCO2 31 mmol/L (19-24)
[2024-08-28 05:09] LABS: Anisocytosis Slight; Basophils % (A) 0 %; Eosinophils % (A) 0 %; HCT 21.7 % (34.0-46.0); Hypochromasia Marked; Lymphocytes # (A) 0.1 k/uL (1.0-4.8); Lymphocytes % (A) 2 %; MCH 28.9 pg (25.0-35.0); MCV 93.4 fL (80.0-100.0); Mean Platelet Volume 7.7; Monocytes # (A) 0.2 k/uL (0-1.0); Monocytes % (A) 2 %; Neutrophils # (A) 7.5 k/uL (1.3-7.7); Neutrophils % (A) 95 %; Platelet Count 258 k/uL (150-450); RBC 2.32 m/uL (3.80-5.40); RDW 19.1 % (11.5-15.5); WBC 7.9 k/uL (3.8-10.6)
[2024-08-28 05:29] LABS: Allen Test Performed? NO
[2024-08-28 05:30] LABS: Glucose,Whole Blood 193 mg/dL (70-110)
[2024-08-28 05:32] LABS: ALT 21 U/L (4-34); AST 25 U/L (14-36); African American GFR (CKD) 19 (>60 ml/min/1.73 sqM); Albumin 2.5 g/dL (3.5-5.0); Alkaline Phosphatase 69 U/L (38-126); Anion Gap 11 mmol/L; Blood Urea Nitrogen 48 mg/dL (7-17); Calcium 8.1 mg/dL (8.4-10.2); Carbon Dioxide 27 mmol/L (22-30); Chloride 94 mmol/L (98-107); Glucose 157 mg/dL (74-99); Non-African American GFR(CKD) 17 (>60 ml/min/1.73 sqM); Potassium 4.8 mmol/L (3.5-5.1); Sodium 132 mmol/L (137-145); Total Bilirubin 0.5 mg/dL (0.2-1.3); Total Protein 6.4 g/dL (6.3-8.2)
[2024-08-28 05:47] LABS: HGB 6.7 gm/dL (11.4-16.0)
--- NOTE | 2024-08-28 07:28 | XR ---
EXAMINATION TYPE: XR chest 1V portable DATE OF EXAM: 08/28/2024 5:05 AM COMPARISON: 08/27/2024 CLINICAL INDICATION: Female, 64 years old with history of mechanical ventilation, , FINDINGS: ET and NG tubes are satisfactory. Right-sided double-lumen hemodialysis catheter tips at the mid SVC level. Left CVC tip at the lower SVC level. Heart remains enlarged. Hyperinflation. Ongoing diffuse i nterstitial and patchy bilateral opacities. Opacity appears more confluent at the left lower lung. IMPRESSION: Similar cardiomegaly and COPD. Diffuse interstitial and bilateral patchy opacities persist though wit h slight worsening now at the left lower lung. [facility], Workstation: [id number], 08/28/2024 7:25 AM
[2024-08-28] MEDS: DEXTROSE 5% IN WATER 100 ML with AMIODARONE 150 MG IV ONE (08:51)
--- NOTE | 2024-08-28 08:51 | P.PN ---
Subjective Progress Note Date: 08/28/24 This is a 63-year-old female who presented to the emergency department with complaints of right lower extremity pain. Patient has a history of end-stage renal disease, as well as lung cancer and a recent diagnosis of multiple myeloma. Patient denies any trauma to leg. She reports she has had similar dnaial n in the past in her right lower extremity but workup has been normal. XR's showing arthritis on admission. Patient maintained on hemodialysis as an outpatient, is due for dialysis today. 08/23/2024 Patient seen and evaluated laying in bed this morning. Last night she developed SVT and was transferred to the cardiac floor. Cardiology has been consulted and the patient was started on a Cardizem drip. Patient denies any shortness of breath or chest pain at time of SVT last night. Patient had a CT of the pelvis yesterday which shows possible enlarged lymph node in the right inguinal area. 08/27/2024 Patient remains in the ICU on mechanical ventilation. She was positive for COVID last week. Patient still having tachycardia and tachypnea. 08/28/2024 Patient remains in the ICU on mechanical ventilation. Pulmonary has ordered a CT of the head and chest for today. Patient continues to have tachycardia and tachypnea. Hemoglobin was 6.7 yesterday and patient received 1 unit of PRBCs. Objective - Vital Signs Vital signs: Vital Signs Temp 98.2 F 08/28/24 08:00 Pulse 129 H 08/28/24 08:00 Resp 24 08/28/24 08:00 BP 104/61 08/28/24 08:00 Pulse Ox 91 L 08/28/24 08:00 FiO2 50 08/28/24 08:10 Intake & Output 08/27/24 08/28/24 08/28/24 18:59 06:59 18:59 Intake Total 605.875 8898.088 136 Output Total 55 2530 15 Balance 940.339 -978.912 121 Weight 56.6 kg 59 kg Intake: IV 312 279 46 .9NS Pressure Bag 72 39 6 Lactated Ringers 1,000 ml 240 240 40 @ 20 mls/hr IV .Q24H [facility] Rx#:[id number] Intake, IV Titration 293.339 322.088 Amount Norepinephrine 8 mg In 114.855 172.608 Sodium Chloride 0.9% 250 ml @ 0.03 MCG/KG/MIN 3. 106 mls/hr IV .Q24H [facility] Rx#:[id number] propofoL 1,000 mg In 178.484 149.480 Empty Bag 1 bag @ 15 MCG/ KG/MIN 4.815 mls/hr IV . [id number] [facility] Rx#:[id number] Tube Feeding 360 360 60 Hemodialysis 500 Other 30 90 30 Output: Urine 55 30 15 Hemodialysis 1500 Hemodialysis Net Amount 1000 Other: Voiding Method Indwelling Catheter Indwelling Catheter ABP, PAP, CO, CI - Last Documented Arterial Blood Pressure 92/54 - Exam intubated - Constitutional General appearance: Present: no acute distress - EENT Eyes: Present: PERRLA - Neck Neck: Absent: lymphadenopathy, rigidity - Respiratory Respiratory: bilateral: diminished - Cardiovascular Rhythm: regular Heart sounds: normal: S1, S2 - Gastrointestinal General gastrointestinal: Present: soft - Integumentary Integumentary: Present: normal, normal turgor - Musculoskeletal Musculoskeletal: Present: generalized weakness - Labs CBC & Chem 7: 08/28/24 04:45 08/28/24 04:45 Labs: Abnormal Lab Results - Last 24 Hours (Table) 08/27/24 08/27/24 08/27/24 Range/Units 12:01 13:30 13:45 RBC 2.30 L (3.80-5.40) m/uL Hgb 6.7 L* (11.4-16.0) gm/dL Hct 22.0 L (34.0-46.0) % MCHC 30.7 L (31.0-37.0) g/dL RDW 19.0 H (11.5-15.5) % Neutrophils # 8.0 H (1.3-7.7) k/uL Lymphocytes # 0.1 L (1.0-4.8) k/uL ABG pH 7.27 L (7.35-7.45) ABG pCO2 51 H (35-45) mmHg ABG pO2 71 L (83-108) mmHg ABG HCO3 (21-25) mmol/L ABG Total CO2 25 H (19-24) mmol/L ABG O2 Saturation 91.6 L (94-97) % Hemoglobin 6.6 L* (11.4-16.0) gm/dL Sodium (137-145) mmol/L Chloride (98-107) mmol/L BUN (7-17) mg/dL Creatinine (0.52-1.04) mg/dL Glucose (74-99) mg/dL POC Glucose (mg/dL) 134 H (70-110) mg/dL Calcium (8.4-10.2) mg/dL Albumin (3.5-5.0) g/dL Crossmatch Blood Bank Comment 08/27/24 08/27/24 08/27/24 Range/Units 14:45 17:33 17:36 RBC (3.80-5.40) m/uL Hgb (11.4-16.0) gm/dL Hct (34.0-46.0) % MCHC (31.0-37.0) g/dL RDW (11.5-15.5) % Neutrophils # (1.3-7.7) k/uL Lymphocytes # (1.0-4.8) k/uL ABG pH (7.35-7.45) ABG pCO2 (35-45) mmHg ABG pO2 (83-108) mmHg ABG HCO3 (21-25) mmol/L ABG Total CO2 (19-24) mmol/L ABG O2 Saturation (94-97) % Hemoglobin (11.4-16.0) gm/dL Sodium (137-145) mmol/L Chloride (98-107) mmol/L BUN (7-17) mg/dL Creatinine (0.52-1.04) mg/dL Glucose (74-99) mg/dL POC Glucose (mg/dL) 160 H (70-110) mg/dL Calcium (8.4-10.2) mg/dL Albumin (3.5-5.0) g/dL Crossmatch See Detail Blood Bank Comment Sent to [facility] Sent to [facility] 08/27/24 08/27/24 08/28/24 Range/Units 17:38 23:14 01:30 RBC 2.22 L (3.80-5.40) m/uL Hgb 6.6 L* (11.4-16.0) gm/dL Hct 20.5 L (34.0-46.0) % MCHC (31.0-37.0) g/dL RDW 19.3 H (11.5-15.5) % Neutrophils # (1.3-7.7) k/uL Lymphocytes # (1.0-4.8) k/uL ABG pH (7.35-7.45) ABG pCO2 (35-45) mmHg ABG pO2 (83-108) mmHg ABG HCO3 (21-25) mmol/L ABG Total CO2 (19-24) mmol/L ABG O2 Saturation (94-97) % Hemoglobin (11.4-16.0) gm/dL Sodium (137-145) mmol/L Chloride (98-107) mmol/L BUN (7-17) mg/dL Creatinine (0.52-1.04) mg/dL Glucose (74-99) mg/dL POC Glucose (mg/dL) 156 H 123 H (70-110) mg/dL Calcium (8.4-10.2) mg/dL Albumin (3.5-5.0) g/dL Crossmatch Blood Bank Comment 08/28/24 08/28/24 08/28/24 Range/Units 04:30 04:45 04:45 RBC 2.32 L (3.80-5.40) m/uL Hgb 6.7 L* (11.4-16.0) gm/dL Hct 21.7 L (34.0-46.0) % MCHC (31.0-37.0) g/dL RDW 19.1 H (11.5-15.5) % Neutrophils # (1.3-7.7) k/uL Lymphocytes # 0.1 L (1.0-4.8) k/uL ABG pH (7.35-7.45) ABG pCO2 50 H (35-45) mmHg ABG pO2 66 L (83-108) mmHg ABG HCO3 29 H (21-25) mmol/L ABG Total CO2 31 H (19-24) mmol/L ABG O2 Saturation 92.1 L (94-97) % Hemoglobin 6.6 L* (11.4-16.0) gm/dL Sodium 132 L (137-145) mmol/L Chloride 94 L (98-107) mmol/L BUN 48 H (7-17) mg/dL Creatinine 2.85 H (0.52-1.04) mg/dL Glucose 157 H (74-99) mg/dL POC Glucose (mg/dL) (70-110) mg/dL Calcium 8.1 L (8.4-10.2) mg/dL Albumin 2.5 L (3.5-5.0) g/dL Crossmatch Blood Bank Comment 08/28/24 Range/Units 05:28 RBC (3.80-5.40) m/uL Hgb (11.4-16.0) gm/dL Hct (34.0-46.0) % MCHC (31.0-37.0) g/dL RDW (11.5-15.5) % Neutrophils # (1.3-7.7) k/uL Lymphocytes # (1.0-4.8) k/uL ABG pH (7.35-7.45) ABG pCO2 (35-45) mmHg ABG pO2 (83-108) mmHg ABG HCO3 (21-25) mmol/L ABG Total CO2 (19-24) mmol/L ABG O2 Saturation (94-97) % Hemoglobin (11.4-16.0) gm/dL Sodium (137-145) mmol/L Chloride (98-107) mmol/L BUN (7-17) mg/dL Creatinine (0.52-1.04) mg/dL Glucose (74-99) mg/dL POC Glucose (mg/dL) 193 H (70-110) mg/dL Calcium (8.4-10.2) mg/dL Albumin (3.5-5.0) g/dL Crossmatch Blood Bank Comment Microbiology - Last 24 Hours (Table) 08/26/24 10:57 Blood Culture - Preliminary Blood 08/25/24 12:50 Blood Culture - Preliminary Blood Assessment and Plan (1) Lung cancer Current Visit: Yes Status: Acute Code(s): C34.90 - MALIGNANT NEOPLASM OF UNSP PART OF UNSP BRONCHUS OR LUNG SNOMED Code(s): 396482344 (2) Multiple myeloma Current Visit: Yes Status: Acute Priority: High Code(s): C90.00 - MULTIPLE MYELOMA NOT HAVING ACHIEVED REMISSION SNOMED Code(s): 775287697 (3) Intractable pain Current Visit: Yes Status: Acute Priority: High Code(s): R52 - PAIN, UNSPECIFIED SNOMED Code(s): 40118784 (4) COPD (chronic obstructive pulmonary disease) Current Visit: Yes Status: Acute Code(s): J44.9 - CHRONIC OBSTRUCTIVE PUL MONARY DISEASE, UNSPECIFIED SNOMED Code(s): 68061953 (5) End stage renal disease Current Visit: Yes Status: Acute Priority: High Code(s): N18.6 - END STAGE RENAL DISEASE SNOMED Code(s): 24137892 (6) Paroxysmal SVT (supraventricular tachycardia) Current Visit: Yes Status: Acute Code(s): I47.10 - SUPRAVENTRICULAR TACHYCARDIA, UNSPECIFIED SNOMED Code(s): 43044820 (7) COVID Current Visit: Yes Status: Acute Code(s): U07.1 - COVID-19 SNOMED Code(s): 934016154 Plan: Appreciate multiple consultants. Check CBC and CMP in the morning. Patient seen and evaluated by nurse practitioner, physician in agreement with plan.
[2024-08-28] MEDS: AMIODARONE 360 MG in DEXTROSE 5% IN WATER 200 ML IV ONE (09:16)
--- NOTE | 2024-08-28 10:01 | P.PN ---
Subjective Progress Note Date: 08/28/24 This is a 63-year-old female patient with a known history of multiple myeloma receiving chemotherapy recently, suspected lung cancer with a PET positive right upper lobe 1.7 cm spiculated nodule, chronic obstructive pulmonary disease, chronic tobacco dependence, hypertension, hypothyroidism, end-stage renal disease receiving hemodialysis. She was admitted here on 08/21/2024 with complaints of right lower extremity pain. Been undergoing evaluation. Today on August 23, 2024 she had rapid response called on her twice for increasing shortness of breath and hypoxemia. She was subsequently transferred to the intensive care unit. She was placed on BiPAP 07/27 and 100% FiO2. She continued to do poorly and was subsequently intubated and placed on the mechanical ventilator. Currently on assist-control mode at a rate of 20, tidal volume 350, FiO2 100% and a PEEP of 5. She did undergo a left subclavian triple-lumen catheter placement and a right radial arterial line placement. Chest x-ray revealed satisfactory positions of the lines. Subtle scattered opacities may represent atypical pneumonia. Finding out today she is positive for COVID-19. Arterial blood gases post intubation revealed a PaO2 greater than 420, pCO2 of 60 and a pH of 7.28. FiO2 will be decreased accordingly. White count 8.5. Hemoglobin 8.7. Platelets 404. Sodium 129. Potassium 5.7. Bicarb 24. BUN 57. Creatinine 5.92. Glucose 82. She is sedated on propofol at 15 mcg/kg/min. The patient is seen today August 24, 2024 in follow-up in the intensive care unit. She remains intubated on the mechanical ventilator and assist-control mode at a rate of 20, tidal volume 350, FiO2 50% and a PEEP of 5. Morning blood gases revealed a PaO2 of 99. pCO2 48. pH 7.35. She is still requiring norepinephrine at 7 mcg/min. Cardizem drip at 5 mg an hour. Propofol at 40 mcg/kg/min. Lactated Ringer's at 100 mL/h. She is being nourished with vital HP at 10 mL/h with a goal of 46 mL/h. She remains on Symbicort, albuterol, Decadron. She is on Lovenox for DVT prophylaxis. Protonix for GI prophylaxis. Blood cultures now showing gram-positive cocci in clusters. Sputum culture pending. Vancomycin will be given x 1 until further cultures result. White count 6.6. Hemoglobin 7.0. Platelets 352. Sodium 132. Potassium 4.8. Bicarb 25. BUN 32. Creatinine 3.32. Glucose 108. The patient is seen today August 25, 2024 in follow-up in the intensive care unit. She remains intubated on the mechanical ventilator currently in settings of assist-control mode at a rate of 20, tidal volume 350, FiO2 50% and a PEEP of 5. Morning blood gases revealed a PaO2 of 91. pCO2 of 53 and a pH of 7.28. Chest x-ray reveals chronic and for somatic changes with mild cardiomegaly and patchy bilateral multifocal edema. No significant change. She remains on norepinephrine at 4 mcg/min. Cardizem drip is off. She was having sinus pauses yesterday. She has issues with intermittent atrial flutter. She is sedated on propofol at 40 mcg/kg/min. Lactated Ringer's at KVO. She is being nourished with vital HP at 10 mL/h. He received vancomycin x 1 for Staphylococcus epidermidis blood culture. Sputum culture revealed no growth. White count 12.9. Hemoglobin 7.5. Platelets 423. Sodium 133. Potassium 5.0. Bicarb 21. BUN 58. Creatinine 4.48. Glucose 134. She remains on Symbicort, albuterol, Decadron. Lovenox for DVT prophylaxis. Protonix for GI prophylaxis. The patient is seen today August 26, 2024 in follow-up in the intensive care unit. She remains intubated on mechanical ventilator and assist-control mode with a rate of 20, tidal valve 350, FiO2 50% and a PEEP of 5. Morning blood gases revealed a PaO2 of 90. pCO2 57 and a pH of 7.28. She did receive hemodialysis with 500 mL of fluid removed yesterday. She remains on norepinephrine at 1.7 mcg/min. Propofol at 50 mcg/kg/min. Lactated Ringer's at KVO. Vital HP at 10 mL an hour with a goal of 46 mL/h. She is continued with high residuals. May need Reglan if no improvement. She remains on albuterol, Symbicort, Decadron. Lovenox for DVT prophylaxis. Show chronic and for somatic changes and mild cardiomegaly with small to tiny left pleural effusion and patchy bilateral multifocal edema and/or acute infiltrates. No significant change. Blood culture was positive for Staphylococcus epidermidis. Sputum culture revealed no growth. White count 13.3. Hemoglobin 7.5. Platelets 364. Sodium 133. Potassium 5.1. Bicarb 24. BUN 41. Creatinine 2.91. Glucose 137. Currently in a +250 mL balance. On 08/27/2024, this patient is being seen for a follow-up. The patient remains intubated on the mechanical ventilator due to a combination of COPD and CHF exacerbation and COVID-19 infection. Noted the patient also has history of multiple myeloma receiving treatment on an outpatient basis. The patient has end-stage renal disease on hemodialysis and the patient also has history of hypertension hypothyroidism and during the course of the illness, the patient was also found to have a spiculated 1.7 cm right upper lobe lesion that was PET avid. This morning, the patient remains intubated on the mechanical ventilator. The patient is on assist-control mode at rate of 20, tidal volume of 350, FiO2 50% with a PEEP of 5. The patient remains sedated with propofol at 50 mc. The blood gases from today showed a pH of 7.26 with a pCO2 of 56 and pO2 of 70 and the chest x-ray shows stable perihilar and lower lobe pulmonary infiltrates. ET tube is around 5 cm above the danilo. The patient also has a dialysis permacath port in the right subclavian. Blood culture was positive for coagulase-negative staph and Staph epidermidis on 08/23/2024. Sputum culture was negative. The patient is currently on Decadron 8 mg p.o. daily Symbicort. No antibiotic coverage for now. is also on Lovenox for DVT prophylaxis at a dose of 30 mg subcu on a daily basis. Hemodynamically, the patient is requiring a low-dose norepinephrine for blood pressure support. Echocardiogram done on 08/23/2024 shows mild impairment of LV function with an EF of around 40 to 45% evidence of severe pulmonary hypertension and RV dilatation and estimated pulmonary artery pressures of around 56. Blood work from today shows a white cell count of 10.6, hemoglobin 7.2 and platelet count of 333. The sodium level is sodium is 135 at 135 with a potassium of 5.3, BUN 70 creatinine of 4.34. She is still on NE low dose at 0.04mc/kg/min. Her fluid balance is 1.4 L over the past 24 hours. Her last hemodialysis session was on 08/25/2024 with a total of 1 L of fluid was removed. She is on Vital HP at 30 cc. hr. Residuals are oin 250 cc range On 08/28/2023, the patient is being seen for a follow-up. Remains intubated on mechanical ventilator. Patient remains on propofol running at 45 mcg/kg/min. On today's evaluation, the patient is on assist-control mode with rate of 20, tidal volume of 450, FiO2 of 50% and the PEEP was brought up to 8 as the morning blood gases showed a pH of 7.38 with a pCO2 of 50 and pO2 of 66 and this was an FiO2 of 50%. The chest x-ray findings are essentially unchanged. The patient continues to have perihilar and lower lobe pulmonary infiltrates, patchy, slightly worse on the left and there is also some background cardiomegaly. The patient underwent hemodialysis yesterday. The patient is end-stage renal disease and she is currently on hemodialysis. She remains on norepinephrine which is running at 0.1 mcg/kg/min and the patient remains on vasopressin physiologic dose at 0.03 units. The patient has been having difficulties with atrial fibrillation since yesterday. Cardiology has been involved in the case and the patient was started on Cardizem drip and Cardizem drip is running at 5 mg an hour. Nevertheless, the patient continues to be in A-fib and she remains tachycardic. On a separate note, her hemoglobin is at 6.7. Still awaiting an appropriate manage for the packed RBC transfusion. The rest of the blood work shows a white cell count of 7.9, platelet count of 258, BUN is 48 with a creatinine of 2.8, sodium is at 132, chloride is 94 and a serum bicarb is at 27 at this point. Remains on Decadron 8 mg p.o. daily. Afebrile. Receiving enteral feeding for nutritional support. Objective - Vital Signs Vital signs: Vital Signs Temp 98.2 F 08/28/24 08:00 Pulse 129 H 08/28/24 08:00 Resp 24 08/28/24 08:00 BP 104/61 08/28/24 08:00 Pulse Ox 91 L 08/28/24 08:00 FiO2 50 08/28/24 04:00 Intake & Output 08/27/24 08/28/24 08/28/24 18:59 06:59 18:59 Intake Total 369.100 8620.088 136 Output Total 55 2530 15 Balance 940.339 -978.912 121 Weight 56.6 kg 59 kg Intake: IV 312 279 46 .9NS Pressure Bag 72 39 6 Lactated Ringers 1,000 ml 240 240 40 @ 20 mls/hr IV .Q24H [facility] Rx#:[id number] Intake, IV Titration 293.339 322.088 Amount Norepinephrine 8 mg In 114.855 172.608 Sodium Chloride 0.9% 250 ml @ 0.03 MCG/KG/MIN 3. 106 mls/hr IV .Q24H [facility] Rx#:[id number] propofoL 1,000 mg In 178.484 149.480 Empty Bag 1 bag @ 15 MCG/ KG/MIN 4.815 mls/hr IV . [id number] [facility] Rx#:[id number] Tube Feeding 360 360 60 Hemodialysis 500 Other 30 90 30 Output: Urine 55 30 15 Hemodialysis 1500 Hemodialysis Net Amount 1000 Other: Voiding Method Indwelling Catheter Indwelling Catheter ABP, PAP, CO, CI - Last Documented Arterial Blood Pressure 92/54 - Exam GENERAL EXAM: Intubated, sedated, 63-year-old female, on the ventilator, in no apparent distress. HEAD: Normocephalic. EYES: Normal reaction of pupils, equal size. NOSE: Clear with pink turbinates. THROAT: Oral endotracheal and gastric tube secured in place. No erythema or exudates. NECK: No masses, no JVD. CHEST: No chest wall deformity. LUNGS: Equal air entry with no crackles, wheeze, rhonchi or dullness. CVS: S1 and S2 normal with no audible murmur, regular rhythm. ABDOMEN: No hepatosplenomegaly, normal bowel sounds, no guarding or rigidity. SPINE: No scoliosis or deformity SKIN: No rashes CENTRAL NERVOUS SYSTEM: No focal deficits, tone is normal in all 4 extremities. EXTREMITIES: There is no peripheral edema. No clubbing, no cyanosis. Peripheral pulses are intact. - Labs CBC & Chem 7: 08/28/24 04:45 08/28/24 04:45 Labs: Abnormal Lab Results - Last 24 Hours (Table) 08/27/24 08/27/2425 Range/Units 12:01 13:30 13:45 RBC 2.30 L (3.80-5.40) m/uL Hgb 6.7 L* (11.4-16.0) gm/dL Hct 22.0 L (34.0-46.0) % MCHC 30.7 L (31.0-37.0) g/dL RDW 19.0 H (11.5-15.5) % Neutrophils # 8.0 H (1.3-7.7) k/uL Lymphocytes # 0.1 L (1.0-4.8) k/uL ABG pH 7.27 L (7.35-7.45) ABG pCO2 51 H (35-45) mmHg ABG pO2 71 L (83-108) mmHg ABG HCO3 (21-25) mmol/L ABG Total CO2 25 H (19-24) mmol/L ABG O2 Saturation 91.6 L (94-97) % Hemoglobin 6.6 L* (11.4-16.0) gm/dL Sodium (137-145) mmol/L Chloride (98-107) mmol/L BUN (7-17) mg/dL Creatinine (0.52-1.04) mg/dL Glucose (74-99) mg/dL POC Glucose (mg/dL) 134 H (70-110) mg/dL Calcium (8.4-10.2) mg/dL Albumin (3.5-5.0) g/dL Crossmatch Blood Bank [facility] 08/27/24 08/27/24 08/27/24 Range/Units 14:45 17:33 17:36 RBC (3.80-5.40) m/uL Hgb (11.4-16.0) gm/dL Hct (34.0-46.0) % MCHC (31.0-37.0) g/dL RDW (11.5-15.5) % Neutrophils # (1.3-7.7) k/uL Lymphocytes # (1.0-4.8) k/uL ABG pH (7.35-7.45) ABG pCO2 (35-45) mmHg ABG pO2 (83-108) mmHg ABG HCO3 (21-25) mmol/L ABG Total CO2 (19-24) mmol/L ABG O2 Saturation (94-97) % Hemoglobin (11.4-16.0) gm/dL Sodium (137-145) mmol/L Chloride (98-107) mmol/L BUN (7-17) mg/dL Creatinine (0.52-1.04) mg/dL Glucose (74-99) mg/dL POC Glucose (mg/dL) 160 H (70-110) mg/dL Calcium (8.4-10.2) mg/dL Albumin (3.5-5.0) g/dL Crossmatch See Detail Blood Bank Comment Sent to [facility] Sent to [facility] 08/27/24 08/27/24 08/28/24 Range/Units 17:38 23:14 01:30 RBC 2.22 L (3.80-5.40) m/uL Hgb 6.6 L* (11.4-16.0) gm/dL Hct 20.5 L (34.0-46.0) % MCHC (31.0-37.0) g/dL RDW 19.3 H (11.5-15.5) % Neutrophils # (1.3-7.7) k/uL Lymphocytes # (1.0-4.8) k/uL ABG pH (7.35-7.45) ABG pCO2 (35-45) mmHg ABG pO2 (83-108) mmHg ABG HCO3 (21-25) mmol/L ABG Total CO2 (19-24) mmol/L ABG O2 Saturation (94-97) % Hemoglobin (11.4-16.0) gm/dL Sodium (137-145) mmol/L Chloride (98-107) mmol/L BUN (7-17) mg/dL Creatinine (0.52-1.04) mg/dL Glucose (74-99) mg/dL POC Glucose (mg/dL) 156 H 123 H (70-110) mg/dL Calcium (8.4-10.2) mg/dL Albumin (3.5-5.0) g/dL Crossmatch Blood Bank Comment 08/28/24 08/28/24 08/28/24 Range/Units 04:30 04:45 04:45 RBC 2.32 L (3.80-5.40) m/uL Hgb 6.7 L* (11.4-16.0) gm/dL Hct 21.7 L (34.0-46.0) % MCHC (31.0-37.0) g/dL RDW 19.1 H (11.5-15.5) % Neutrophils # (1.3-7.7) k/uL Lymphocytes # 0.1 L (1.0-4.8) k/uL ABG pH (7.35-7.45) ABG pCO2 50 H (35-45) mmHg ABG pO2 66 L (83-108) mmHg ABG HCO3 29 H (21-25) mmol/L ABG Total CO2 31 H (19-24) mmol/L ABG O2 Saturation 92.1 L (94-97) % Hemoglobin 6.6 L* (11.4-16.0) gm/dL Sodium 132 L (137-145) mmol/L Chloride 94 L (98-107) mmol/L BUN 48 H (7-17) mg/dL Creatinine 2.85 H (0.52-1.04) mg/dL Glucose 157 H (74-99) mg/dL POC Glucose (mg/dL) (70-110) mg/dL Calcium 8.1 L (8.4-10.2) mg/dL Albumin 2.5 L (3.5-5.0) g/dL Crossmatch Blood Bank Comment 08/28/24 Range/Units 05:28 RBC (3.80-5.40) m/uL Hgb (11.4-16.0) gm/dL Hct (34.0-46.0) % MCHC (31.0-37.0) g/dL RDW (11.5-15.5) % Neutrophils # (1.3-7.7) k/uL Lymphocytes # (1.0-4.8) k/uL ABG pH (7.35-7.45) ABG pCO2 (35-45) mmHg ABG pO2 (83-108) mmHg ABG HCO3 (21-25) mmol/L ABG Total CO2 (19-24) mmol/L ABG O2 Saturation (94-97) % Hemoglobin (11.4-16.0) gm/dL Sodium (137-145) mmol/L Chloride (98-107) mmol/L BUN (7-17) mg/dL Creatinine (0.52-1.04) mg/dL Glucose (74-99) mg/dL POC Glucose (mg/dL) 193 H (70-110) mg/dL Calcium (8.4-10.2) mg/dL Albumin (3.5-5.0) g/dL Crossmatch Blood Bank Comment Microbiology - Last 24 Hours (Table) 08/26/24 10:57 Blood Culture - Preliminary Blood 08/25/24 12:50 Blood Culture - Preliminary Blood Assessment and Plan Plan: Acute hypoxemic respiratory failure suspect secondary to an acute exacerbation of chronic obstructive pulmonary disease and acute exacerbation of chronic systolic congestive heart failure, CoVID infection. Chest x-ray shows perihilar and lower lobe pulmonary infiltrates and small subpulmonic pleural effusions. The patient remains hypoxic. Chest x-ray findings are essentially unchanged with patchy bilateral pulmonary filtrates perihilar and lower lobe predominance. Some improvement in acid-base status post hemodialysis. Rule out COVID-19 related pneumonia. Rule out bacterial pneumonia as the patient is immunosuppressed due to her underlying multiple myeloma. COVID-19 infection and possible COVID-pneumonia, currently on Decadron History of multiple myeloma receiving treatment as recently as July 2024, and the patient has been maintained on Revlimid that was started on 06/12/2024 with daratumumab, completed total of 3 cycles and the Velcade being held since 08/03/2024 due to cytopenias. CHF with mild impairment of LV function with an ejection fraction of 40 to 45% and RV dilatation with moderate to severe pulm hypertension with a PA pressure estimated to be at the 56 based on echocardiogram that was done on 08/24/2024. Right upper lobe 1.7 cm spiculated lesion, PET positive History of chronic tobacco dependence Hypertension End-stage renal disease receiving hemodialysis, maintained on hemodialysis on Tuesday and Saturdays via permacath. Last hemodialysis was performed yesterday Hypothyroidism Leg pain initially causing this admission on 08/21/2024, the patient has history of chronic right hip pain and pain in the groin radiating to the right lower extremity and lateral hip. Right femur/hip and pelvic x-ray showed moderate degenerative changes. Bone scan on 08/09/2024 showed no hip fracture and no abnormal uptake to suggest any other abnormalities Such as osseous metastases. Anemia of chronic disease in addition to multiple myeloma, hemoglobin is at 6.7, awaiting a packed RBC transfusion Plan: Continue vent support and the PEEP has been brought up to 8 Obtain a CAT scan of the chest, no contrast, also obtain a CAT scan of the brain, noncontrast Start the patient broad-spectrum antibiotics and the patient will be started on a combination of Zosyn and vancomycin Continue Decadron Start the patient on amiodarone drip per protocol for atrial fibrillation. Anticoagulation is on hold as the patient has a low hemoglobin level at this point Transfused with a unit of packed RBC Keep the patient sedated on propofol Discontinued the Cardizem drip Patient is currently off pressors Continue vital HP for nourishment Hemodialysis per nephrology Not ready for weaning or extubation yet Will continue to follow. Condition remains critical. Critical care evaluation , done in >30 min Time with Patient: Greater than 30
[2024-08-28] MEDS ORDERED: VANCOMYCIN IV PER PHARMACY 1 EACH MISC MISCELLANE PRN (10:47)
[2024-08-28] MEDS: PIPERACILLIN-TAZOBACTAM 3.375 GM in SODIUM CHLORIDE 0.9% 100 ML IVPB SCH ×2 (10:59→19:41)
[2024-08-28 11:43] LABS: Protein, Total 6.4 g/dL (6.2-8.2)
[2024-08-28 11:49] LABS: Glucose,Whole Blood 206 mg/dL (70-110)
[2024-08-28] MEDS: VANCOMYCIN 1,000 MG in SODIUM CHLORIDE 0.9% 250 ML IVPB ONE (12:28)
[2024-08-28] MEDS: SODIUM CHLORIDE 0.9% 500 ML 500 ML IV SCH (12:42)
--- NOTE | 2024-08-28 13:36 | CT ---
EXAMINATION TYPE: CT brain wo con DATE OF EXAM: 08/28/2024 COMPARISON: 09/29/2010 CLINICAL INDICATION: Female, 64 years old with history of AMS; [facility], CT DLP: mGycm Automated exposure control for dose reduction was used. Findings: The ventricles, basal cisterns and sulci over the convexities are within normal limits and there is n o mass effect or shift of midline structures. No abnormal density is seen throughout the brain parenchyma and there is no acute intra or extra-axia l hemorrhage. The posterior fossa including the brainstem, fourth ventricle and cerebellar pontine angles appear no rmal. Intraorbital contents appear normal and symmetric. There are mild chronic inflammatory changes in the left maxillary and ethmoid sinuses. There is mild fluid in the mastoid air cells bilaterally. The calvarium is intact. IMPRESSION: 1. No acute bleed or mass effect. 2. No significant interval change compared to the prior study. 3. Mild sinusitis and mastoiditis. [facility], , 08/28/2024 1:34 PM
--- NOTE | 2024-08-28 13:44 | CT ---
EXAMINATION TYPE: CT chest wo con DATE OF EXAM: 08/28/2024 COMPARISON: 04/27/2024 CLINICAL INDICATION: Female, 64 years old with history of COVID pneumonia; [facility], TECHNIQUE: CT scan of the thorax is performed without IV contrast. CT DLP: mGycm CT CTDI: mGy Automated exposure control for dose reduction was used. FINDINGS: There has been interval development of moderate to marked scattered interstitial densities and scatte red partially consolidative opacities with peribronchial cuffing. The findings are highly suspicious for acute bilateral pneumonia. There is a stable 16 to 17 mm spiculated mass in the right lung apex which is suspicious for neoplasm . There are persistent mild to moderate emphysematous changes. The main pulmonary artery is dilated to 3.5 cm. The ascending thoracic aorta is normal in diameter. Lack of IV contrast limits evaluation for mediastinal or hilar adenopathy. Limited scanning through the upper abdomen reveals no gross abnormality. No focal osseous lesions are seen. IMPRESSION: 1. Development of diffuse bilateral acute cardiopulmonary disease possibly acute pneumonia. 2. Stable 16 mm spiculated nodule/mass in the right upper lobe neoplasm is not excluded. 3. NG tube within the stomach. ET tube approximately 3 to 4 cm above the danilo. There is a right zoraida tral venous catheter tip in the SVC/RA junction. There is a PICC line tip in the SVC/RA junction. 4. Dilated main pulmonary artery, approximately 3.5 cm in size. 5. Mild emphysematous changes. [facility], , 08/28/2024 1:42 PM
--- NOTE | 2024-08-28 14:10 | P.PN ---
Subjective PROGRESS NOTE The patient is a 63-year-old female who was admitted with symptoms of progressive dyspnea, significant right groin discomfort, has a history of multiple myeloma, end-stage renal disease, lung nodules and evidence of malignancy. On presentation she was in atrial flutter with rapid ventricular response. Yesterday she became more dyspneic requiring mechanical ventilation and was transferred to the ICU. She is intubated and sedated at this time. She was in sinus mechanism for a period of time but she is in atrial fibrillation at this point. There is no evidence of ventricular ectopic activity. In the past her echocardiogram showed a preserved systolic function with mild mitral and mild to moderate tricuspid regurgitation and moderate pulmonary hypertension. August 25: The patient remains intubated and sedated, receiving dialysis today. She is off of IV Cardizem because of pauses. She continues to be in atrial fibrillation with overall controlled ventricular response. She continues to be on norepinephrine. The plan is to continue intubation today and attempt weaning tomorrow. Echocardiogram showed an ejection fraction of 40 to 45% with mild to moderate tricuspid regurgitation August 26: She remains intubated and sedated, in sinus mechanism with frequent PACs. She continues to be on norepinephrine, there is no evidence of ventricular tachycardia. She has been receiving hemodialysis. Continues to be on m etoprolol tartrate, tolerating the treatment, off IV Cardizem 08/27 Patient remains intubated and sedated. Currently on 50% FiO2. Low-dose norepinephrine. He remains in sinus rhythm with PACs. Remains sedated on propofol. Hemoglobin down to 6.7 however no active source of bleeding per nursing. She has not been on any anticoagulation. 08/28 Patient with continued anemia 6.6. No significant source of bleeding. She did require increasing vasopressors and vasopressin is added and norepinephrine slightly increased. She did have more tachycardia and therefore Cardizem drip was switched to amiodarone drip. Remains on FiO2 50% on the ventilator. Underwent HD yesterday. Medications: Lovenox subcu, Mucinex, metoprolol tartrate 25 mg twice a day, norepinephrine PHYSICAL EXAMINATION: Blood pressure 105/50 heart rate 110, intubated and sedated LUNGS: Clear anteriorly HEART: Regular rate and rhythm, with extrasystole S1, S2. No S3. Systolic ejection murmur ABDOMEN: Soft, positive bowel sounds, no organomegaly EXTREMETIES: No edema, right inguinal mass IMPRESSION: 1. Acute respiratory failure with a combination of COVID infection, history of COPD and lung mass 2. Multiple myeloma 3. Paroxysmal atrial fibrillation and atrial flutter, off IV Cardizem because pauses. Not anticoagulated because of severe anemia, back in sinus mechanism with multiple PACs. 4. Anemia most likely related to the multiple myeloma 5. End-stage renal disease on hemodialysis 6. Prior history of hypertension 7. Right groin mass could be related to her malignancy PLAN: Continue with current regimen. She appears better controlled with amiodarone. May consider digoxin if continues to be tachycardic with worsening hypotension however would prefer to avoid with her end-stage renal disease. Continue current supportive care. No anticoagulation with patient to receive 1 unit of packed red blood cells today. Prognosis guarded. Objective - Vital Signs Vital signs: Vital Signs Temp 101.3 F H 08/28/24 11:45 Pulse 76 08/28/24 13:30 Resp 26 H 08/28/24 13:30 BP 104/63 08/28/24 13:30 Pulse Ox 97 08/28/24 13:30 FiO2 50 08/28/24 11:40 Intake & Output 08/27/24 08/28/24 08/28/24 18:59 06:59 18:59 Intake Total 050.827 7026.088 978.422 Output Total 55 2530 40 Balance 940.339 -978.912 938.422 Weight 56.6 kg 59 kg Intake: IV 312 279 124 .9NS Pressure Bag 72 39 24 Lactated Ringers 1,000 ml 240 240 100 @ 20 mls/hr IV .Q24H [facility] Rx#:[id number] Intake, IV Titration 293.339 322.088 449.422 Amount Norepinephrine 8 mg In 114.855 172.608 50.293 Sodium Chloride 0.9% 250 ml @ 0.03 MCG/KG/MIN 3. 106 mls/hr IV .Q24H [facility] Rx#:[id number] Piperacillin-Tazobactam 3 100 .375 gm In Sodium Chloride 0.9% 100 ml @ 25 mls/hr IVPB Q8H [facility] Rx#: [id number] Sodium Chloride 0.9% 500 40 ml 500 ml @ 20 mls/hr IV .Q24H [facility] Rx#:[id number] Vancomycin 1,000 mg In 125 Sodium Chloride 0.9% 250 ml @ 125 mls/hr IVPB ONCE ONE Rx#:[id number] Vasopressin 60 unit In 45.185 Sodium Chloride 0.9% 150 ml @ 0.03 UNITS/MIN 4.59 mls/hr IV .Q24H [facility] Rx#: [id number] propofoL 1,000 mg In 178.484 149.480 88.944 Empty Bag 1 bag @ 15 MCG/ KG/MIN 4.815 mls/hr IV . [id number] [facility] Rx#:[id number] Tube Feeding 360 360 315 Hemodialysis 500 Other 30 90 90 Output: Urine 55 30 40 Hemodialysis 1500 Hemodialysis Net Amount 1000 Other: Voiding Method Indwelling Catheter Indwelling Catheter # Bowel Movements 1 ABP, PAP, CO, CI - Last Documented Arterial Blood Pressure 94/48 - Labs CBC & Chem 7: 08/28/24 04:45 08/28/24 04:45 Labs: Abnormal Lab Results - Last 24 Hours (Table) 08/27/24 08/27/24 08/27/24 Range/Units 13:45 14:45 17:33 RBC 2.30 L (3.80-5.40) m/uL Hgb 6.7 L* (11.4-16.0) gm/dL Hct 22.0 L (34.0-46.0) % MCHC 30.7 L (31.0-37.0) g/dL RDW 19.0 H (11.5-15.5) % Neutrophils # 8.0 H (1.3-7.7) k/uL Lymphocytes # 0.1 L (1.0-4.8) k/uL ABG pCO2 (35-45) mmHg ABG pO2 (83-108) mmHg ABG HCO3 (21-25) mmol/L ABG Total CO2 (19-24) mmol/L ABG O2 Saturation (94-97) % Hemoglobin (11.4-16.0) gm/dL Sodium (137-145) mmol/L Chloride (98-107) mmol/L BUN (7-17) mg/dL Creatinine (0.52-1.04) mg/dL Glucose (74-99) mg/dL POC Glucose (mg/dL) 160 H (70-110) mg/dL Calcium (8.4-10.2) mg/dL Albumin (3.5-5.0) g/dL Crossmatch See Detail Blood Bank Comment Sent to Reference[facility] A 08/27/24 08/27/24 08/27/24 Range/Units 17:36 17:38 23:14 RBC (3.80-5.40) m/uL Hgb (11.4-16.0) gm/dL Hct (34.0-46.0) % MCHC (31.0-37.0) g/dL RDW (11.5-15.5) % Neutrophils # (1.3-7.7) k/uL Lymphocytes # (1.0-4.8) k/uL ABG pCO2 (35-45) mmHg ABG pO2 (83-108) mmHg ABG HCO3 (21-25) mmol/L ABG Total CO2 (19-24) mmol/L ABG O2 Saturation (94-97) % Hemoglobin (11.4-16.0) gm/dL Sodium (137-145) mmol/L Chloride (98-107) mmol/L BUN (7-17) mg/dL Creatinine (0.52-1.04) mg/dL Glucose (74-99) mg/dL POC Glucose (mg/dL) 156 H 123 H (70-110) mg/dL Calcium (8.4-10.2) mg/dL Albumin (3.5-5.0) g/dL Crossmatch Blood Bank Comment Sent to [facility] A 08/28/24 08/28/24 08/28/24 Range/Units 01:30 04:30 04:45 RBC 2.22 L 2.32 L (3.80-5.40) m/uL Hgb 6.6 L* 6.7 L* (11.4-16.0) gm/dL Hct 20.5 L 21.7 L (34.0-46.0) % MCHC (31.0-37.0) g/dL RDW 19.3 H 19.1 H (11.5-15.5) % Neutrophils # (1.3-7.7) k/uL Lymphocytes # 0.1 L (1.0-4.8) k/uL ABG pCO2 50 H (35-45) mmHg ABG pO2 66 L (83-108) mmHg ABG HCO3 29 H (21-25) mmol/L ABG Total CO2 31 H (19-24) mmol/L ABG O2 Saturation 92.1 L (94-97) % Hemoglobin 6.6 L* (11.4-16.0) gm/dL Sodium (137-145) mmol/L Chloride (98-107) mmol/L BUN (7-17) mg/dL Creatinine (0.52-1.04) mg/dL Glucose (74-99) mg/dL POC Glucose (mg/dL) (70-110) mg/dL Calcium (8.4-10.2) mg/dL Albumin (3.5-5.0) g/dL Crossmatch Blood Bank Comment 08/28/24 08/28/24 08/28/24 Range/Units 04:45 05:28 11:48 RBC (3.80-5.40) m/uL Hgb (11.4-16.0) gm/dL Hct (34.0-46.0) % MCHC (31.0-37.0) g/dL RDW (11.5-15.5) % Neutrophils # (1.3-7.7) k/uL Lymphocytes # (1.0-4.8) k/uL ABG pCO2 (35-45) mmHg ABG pO2 (83-108) mmHg ABG HCO3 (21-25) mmol/L ABG Total CO2 (19-24) mmol/L ABG O2 Saturation (94-97) % Hemoglobin (11.4-16.0) gm/dL Sodium 132 L (137-145) mmol/L Chloride 94 L (98-107) mmol/L BUN 48 H (7-17) mg/dL Creatinine 2.85 H (0.52-1.04) mg/dL Glucose 157 H (74-99) mg/dL POC Glucose (mg/dL) 193 H 206 H (70-110) mg/dL Calcium 8.1 L (8.4-10.2) mg/dL Albumin 2.5 L (3.5-5.0) g/dL Crossmatch Blood Bank Comment Microbiology - Last 24 Hours (Table) 08/26/24 10:57 Blood Culture - Preliminary Blood 08/25/24 12:50 Blood Culture - Preliminary Blood
[2024-08-28 15:48] LABS: Free Kappa Lt Chain Qnt, Serum 0.37 mg/dL (0.33-1.94); Free Lambda Lt Chain Qnt, Seru 475.89 mg/dL (0.57-2.63)
[2024-08-28] MEDS: AMIODARONE 450 MG in DEXTROSE 5% IN WATER 250 ML IV SCH (16:04)
[2024-08-28 18:25] LABS: Glucose,Whole Blood 154 mg/dL (70-110)
--- NOTE | 2024-08-28 18:29 | P.PN ---
Subjective Patient is seen for follow-up for end-stage renal disease. Patient remains on the vent. FiO2 at 50%. Patient was dialyzed yesterday. UF of 1 L. She developed A-fib and is currently maintained on amiodarone drip. CT of the chest showed bilateral lung infiltrates possibly worsening pneumonia. Objective - Vital Signs Vital signs: Vital Signs Temp 100.3 F H 08/28/24 15:30 Pulse 81 08/28/24 16:00 Resp 25 H 08/28/24 16:00 BP 98/58 08/28/24 16:00 Pulse Ox 96 08/28/24 16:00 FiO2 50 08/28/24 16:00 Intake & Output 08/27/24 08/28/24 08/28/24 18:59 06:59 18:59 Intake Total 438.102 5023.088 1391.058 Output Total 55 2530 80 Balance 940.339 -394.398 5917.058 Weight 56.6 kg 59 kg Intake: IV 312 279 130 .9NS Pressure Bag 72 39 30 Lactated Ringers 1,000 ml 240 240 100 @ 20 mls/hr IV .Q24H [facility] Rx#:[id number] Intake, IV Titration 293.339 322.088 766.058 Amount Norepinephrine 8 mg In 114.855 172.608 112.611 Sodium Chloride 0.9% 250 ml @ 0.03 MCG/KG/MIN 3. 106 mls/hr IV .Q24H [facility] Rx#:[id number] Piperacillin-Tazobactam 3 100 .375 gm In Sodium Chloride 0.9% 100 ml @ 25 mls/hr IVPB Q8H [facility] Rx#: [id number] Sodium Chloride 0.9% 500 80 ml 500 ml @ 20 mls/hr IV .Q24H [facility] Rx#:[id number] Vancomycin 1,000 mg In 250 Sodium Chloride 0.9% 250 ml @ 125 mls/hr IVPB ONCE ONE Rx#:[id number] Vasopressin 60 unit In 45.185 Sodium Chloride 0.9% 150 ml @ 0.03 UNITS/MIN 4.59 mls/hr IV .Q24H [facility] Rx#: [id number] propofoL 1,000 mg In 178.484 149.480 178.262 Empty Bag 1 bag @ 15 MCG/ KG/MIN 4.815 mls/hr IV . [id number] [facility] Rx#:[id number] Tube Feeding 360 360 405 Hemodialysis 500 Other 30 90 90 Output: Urine 55 30 80 Hemodialysis 1500 Hemodialysis Net Amount 1000 Other: Voiding Method Indwelling Catheter Indwelling Catheter Indwelling Catheter # Bowel Movements 1 ABP, PAP, CO, CI - Last Documented Arterial Blood Pressure 108/52 - Exam Patient is sedated and intubated Examination of the heart S1 and S2 Examination of the lungs bilateral breath sounds are heard Abdomen is soft nontender No edema noted in the lower extremities - Labs CBC & Chem 7: 08/28/24 04:45 08/28/24 04:45 Labs: Abnormal Lab Results - Last 24 Hours (Table) 08/27/24 08/27/24 08/27/24 Range/Units 05:48 17:36 23:14 RBC (3.80-5.40) m/uL Hgb (11.4-16.0) gm/dL Hct (34.0-46.0) % RDW (11.5-15.5) % Lymphocytes # (1.0-4.8) k/uL ABG pCO2 (35-45) mmHg ABG pO2 (83-108) mmHg ABG HCO3 (21-25) mmol/L ABG Total CO2 (19-24) mmol/L ABG O2 Saturation (94-97) % Hemoglobin (11.4-16.0) gm/dL Sodium (137-145) mmol/L Chloride (98-107) mmol/L BUN (7-17) mg/dL Creatinine (0.52-1.04) mg/dL Glucose (74-99) mg/dL POC Glucose (mg/dL) 123 H (70-110) mg/dL Calcium (8.4-10.2) mg/dL Albumin (3.5-5.0) g/dL Free Lambda LC, Quant 475.89 H (0.57-2.63) mg/dL Blood Bank Comment Sent to [facility] A 08/28/24 08/28/24 08/28/24 Range/Units 01:30 04:30 04:45 RBC 2.22 L 2.32 L (3.80-5.40) m/uL Hgb 6.6 L* 6.7 L* (11.4-16.0) gm/dL Hct 20.5 L 21.7 L (34.0-46.0) % RDW 19.3 H 19.1 H (11.5-15.5) % Lymphocytes # 0.1 L (1.0-4.8) k/uL ABG pCO2 50 H (35-45) mmHg ABG pO2 66 L (83-108) mmHg ABG HCO3 29 H (21-25) mmol/L ABG Total CO2 31 H (19-24) mmol/L ABG O2 Saturation 92.1 L (94-97) % Hemoglobin 6.6 L* (11.4-16.0) gm/dL Sodium (137-145) mmol/L Chloride (98-107) mmol/L BUN (7-17) mg/dL Creatinine (0.52-1.04) mg/dL Glucose (74-99) mg/dL POC Glucose (mg/dL) (70-110) mg/dL Calcium (8.4-10.2) mg/dL Albumin (3.5-5.0) g/dL Free Lambda LC, Quant (0.57-2.63) mg/dL Blood Bank Comment 08/28/24 08/28/24 08/28/24 Range/Units 04:45 05:28 11:48 RBC (3.80-5.40) m/uL Hgb (11.4-16.0) gm/dL Hct (34.0-46.0) % RDW (11.5-15.5) % Lymphocytes # (1.0-4.8) k/uL ABG pCO2 (35-45) mmHg ABG pO2 (83-108) mmHg ABG HCO3 (21-25) mmol/L ABG Total CO2 (19-24) mmol/L ABG O2 Saturation (94-97) % Hemoglobin (11.4-16.0) gm/dL Sodium 132 L (137-145) mmol/L Chloride 94 L (98-107) mmol/L BUN 48 H (7-17) mg/dL Creatinine 2.85 H (0.52-1.04) mg/dL Glucose 157 H (74-99) mg/dL POC Glucose (mg/dL) 193 H 206 H (70-110) mg/dL Calcium 8.1 L (8.4-10.2) mg/dL Albumin 2.5 L (3.5-5.0) g/dL Free Lambda LC, Quant (0.57-2.63) mg/dL Blood Bank Comment Microbiology - Last 24 Hours (Table) 08/26/24 10:57 Blood Culture - Preliminary Blood 08/25/24 12:50 Blood Culture - Preliminary Blood Assessment and Plan Assessment: 1. End-stage renal disease on hemodialysis via right IJ permacath. 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 2. Right leg pain with soft tissue mass identified near the hip area. Status post pelvic CT which suggests an enlarged lymph node 3. Anemia, multifactorial associated with underlying multiple myeloma, c hemotherapy and renal failure 4. Pulmonary nodule/mass 5. Volume overload 6. Acute hypoxic respiratory failure secondary to COVID pneumonia 7. A-fib with RVR Plan: Will assess for hemodialysis in a.m. No plans for hemodialysis today.
[2024-08-28 23:11] LABS: Glucose,Whole Blood 160 mg/dL (70-110)
[2024-08-29 04:52] LABS: ABG Base Excess -2.5 mmol/L; ABG HCO3 24 mmol/L (21-25); ABG PCO2 53 mmHg (35-45); ABG PH 7.27 (7.35-7.45); ABG PO2 97 mmHg (83-108); ABG TCO2 26 mmol/L (19-24)
[2024-08-29 05:00] LABS: Glucose,Whole Blood 158 mg/dL (70-110)
[2024-08-29 05:34] LABS: Anisocytosis Slight; Basophils % (A) 0 %; Eosinophils % (A) 0 %; HCT 23.2 % (34.0-46.0); HGB 7.3 gm/dL (11.4-16.0); Hypochromasia Marked; Lymphocytes # (A) 0.2 k/uL (1.0-4.8); Lymphocytes % (A) 4 %; MCH 28.8 pg (25.0-35.0); MCHC 31.6 g/dL (31.0-37.0); MCV 91.3 fL (80.0-100.0); Mean Platelet Volume 7.7; Monocytes # (A) 0.2 k/uL (0-1.0); Monocytes % (A) 5 %; Neutrophils # (A) 4.2 k/uL (1.3-7.7); Neutrophils % (A) 90 %; Platelet Count 188 k/uL (150-450); RBC 2.54 m/uL (3.80-5.40); RDW 19.7 % (11.5-15.5); WBC 4.7 k/uL (3.8-10.6)
[2024-08-29 05:35] LABS: ALT 65 U/L (4-34); AST 109 U/L (14-36); Albumin 2.4 g/dL (3.5-5.0); Alkaline Phosphatase 73 U/L (38-126); Anion Gap 14 mmol/L; Blood Urea Nitrogen 81 mg/dL (7-17); Calcium 8.3 mg/dL (8.4-10.2); Carbon Dioxide 23 mmol/L (22-30); Chloride 94 mmol/L (98-107); Glucose 143 mg/dL (74-99); Potassium 5.1 mmol/L (3.5-5.1); Sodium 131 mmol/L (137-145); Total Bilirubin 0.4 mg/dL (0.2-1.3); Total Protein 6.1 g/dL (6.3-8.2)
[2024-08-29 05:41] LABS: African American GFR (CKD) 16 (>60 ml/min/1.73 sqM); Non-African American GFR(CKD) 13 (>60 ml/min/1.73 sqM)
[2024-08-29 05:45] LABS: Allen Test Performed? NO
--- NOTE | 2024-08-29 07:35 | XR ---
EXAMINATION TYPE: XR chest 1V portable DATE OF EXAM: 08/29/2024 6:08 AM COMPARISON: 08/28/2024 CLINICAL INDICATION: Female, 64 years old with history of mechanical ventilation, , FINDINGS: ET and NG tubes are satisfactory. Right-sided double-lumen hemodialysis catheter tips of the mid SVC. Left CVC tip lower SVC. Heart remains enlarged with diffuse interstitial multifocal patchy opacities which have not significantly changed. Hyperinflation. Possible trace left pleural effusion now. No s uspicious right upper lobe nodule. IMPRESSION: COPD with cardiomegaly and diffuse interstitial and multifocal patchy opacities persist, relatively u nchanged. Possible development of a trace left pleural effusion now. [facility], , 08/29/2024 7:33 AM
--- NOTE | 2024-08-29 08:52 | P.PN ---
Subjective Principal diagnosis: Acute respiratory distress. History of pneumonia The patient was essentially admitted for right inguinal pain. Underlying history of multiple myeloma. The patient developed atrial fibrillation and had acute respiratory distress resulting in transfer to the ICU with ventilatory support. She also has an underlying history of ESRD on dialysis. Appreciate multiple consultants input. Recent checks x-ray shows continued bilateral patchy infiltrates. Objective - Vital Signs Vital signs: Vital Signs Temp 99.5 F 08/29/24 04:00 Pulse 66 08/29/24 07:00 Resp 26 H 08/29/24 07:00 BP 95/54 08/29/24 07:00 Pulse Ox 93 L 08/29/24 06:00 FiO2 40 08/29/24 08:26 Intake & Output 08/28/24 08/29/24 08/29/24 18:59 06:59 18:59 Intake Total 7185.197 6459.414 334.347 Output Total 105 40 0 Balance 8949.236 3251.414 334.347 Weight 58.5 kg Intake: IV 136 256 23 .9NS Pressure Bag 36 36 3 Lactated Ringers 1,000 ml 100 @ 20 mls/hr IV .Q24H [facility] Rx#:[id number] Sodium Chloride 0.9% 500 220 20 ml 500 ml @ 20 mls/hr IV .Q24H [facility] Rx#:[id number] Intake, IV Titration 806.058 284.414 271.347 Amount Amiodarone 450 mg In 250 Dextrose 5% in Water 250 ml @ 0.5 MG/MIN 16.667 mls/hr IV .Q15H [facility] Rx#: [id number] Norepinephrine 8 mg In 112.611 116.674 Sodium Chloride 0.9% 250 ml @ 0.03 MCG/KG/MIN 3. 106 mls/hr IV .Q24H [facility] Rx#:[id number] Piperacillin-Tazobactam 3 100 .375 gm In Sodium Chloride 0.9% 100 ml @ 25 mls/hr IVPB Q8H [facility] Rx#: [id number] Sodium Chloride 0.9% 500 120 20 ml 500 ml @ 20 mls/hr IV .Q24H [facility] Rx#:[id number] Vancomycin 1,000 mg In 250 Sodium Chloride 0.9% 250 ml @ 125 mls/hr IVPB ONCE ONE Rx#:[id number] Vasopressin 60 unit In 45.185 Sodium Chloride 0.9% 150 ml @ 0.03 UNITS/MIN 4.59 mls/hr IV .Q24H [facility] Rx#: [id number] propofoL 1,000 mg In 178.262 147.740 21.347 Empty Bag 1 bag @ 15 MCG/ KG/MIN 4.815 mls/hr IV . [id number] [facility] Rx#:[id number] Tube Feeding 495 485 40 Blood Product 310 Rc As-1 Unit 310 [id number] Other 90 90 Output: Urine 105 40 0 Other: Voiding Method Indwelling Catheter Indwelling Catheter # Bowel Movements 1 1 ABP, PAP, CO, CI - Last Documented Arterial Blood Pressure 118/50 - Respiratory Respiratory: bilateral: diminished - Cardiovascular Details: Tachycardic Rhythm: regular Heart sounds: normal: S1, S2 Abnormal Heart Sounds: Absent: S3 Gallop - Gastrointestinal General gastrointestinal: Present: soft - Psychiatric Psychiatric: Absent: A&O x's 3 - Labs CBC & Chem 7: 08/29/24 04:55 08/29/24 04:55 Labs: Abnormal Lab Results - Last 24 Hours (Table) 08/27/24 08/27/24 08/27/24 Range/Units 05:48 14:45 17:36 RBC (3.80-5.40) m/uL Hgb (11.4-16.0) gm/dL Hct (34.0-46.0) % RDW (11.5-15.5) % Lymphocytes # (1.0-4.8) k/uL ABG pH (7.35-7.45) ABG pCO2 (35-45) mmHg ABG Total CO2 (19-24) mmol/L Hemoglobin (11.4-16.0) gm/dL Sodium (137-145) mmol/L Chloride (98-107) mmol/L BUN (7-17) mg/dL Creatinine (0.52-1.04) mg/dL Glucose (74-99) mg/dL POC Glucose (mg/dL) (70-110) mg/dL Calcium (8.4-10.2) mg/dL AST (14-36) U/L ALT (4-34) U/L Total Protein (6.3-8.2) g/dL Albumin (3.5-5.0) g/dL Free Lambda LC, Quant 475.89 H (0.57-2.63) mg/dL Crossmatch See Detail See Detail Blood Bank Comment Sent to Reference[facility] A Reference Lab Result See BBK REF Reports A 08/28/24 08/28/24 08/28/24 Range/Units 11:48 18:24 23:09 RBC (3.80-5.40) m/uL Hgb (11.4-16.0) gm/dL Hct (34.0-46.0) % RDW (11.5-15.5) % Lymphocytes # (1.0-4.8) k/uL ABG pH (7.35-7.45) ABG pCO2 (35-45) mmHg ABG Total CO2 (19-24) mmol/L Hemoglobin (11.4-16.0) gm/dL Sodium (137-145) mmol/L Chloride (98-107) mmol/L BUN (7-17) mg/dL Creatinine (0.52-1.04) mg/dL Glucose (74-99) mg/dL POC Glucose (mg/dL) 206 H 154 H 160 H (70-110) mg/dL Calcium (8.4-10.2) mg/dL AST (14-36) U/L ALT (4-34) U/L Total Protein (6.3-8.2) g/dL Albumin (3.5-5.0) g/dL Free Lambda LC, Quant (0.57-2.63) mg/dL Crossmatch Blood Bank Comment Reference Lab Result 08/29/24 08/29/24 08/29/24 Range/Units 04:50 04:55 04:55 RBC 2.54 L (3.80-5.40) m/uL Hgb 7.3 L (11.4-16.0) gm/dL Hct 23.2 L (34.0-46.0) % RDW 19.7 H (11.5-15.5) % Lymphocytes # 0.2 L (1.0-4.8) k/uL ABG pH 7.27 L (7.35-7.45) ABG pCO2 53 H (35-45) mmHg ABG Total CO2 26 H (19-24) mmol/L Hemoglobin 7.4 L (11.4-16.0) gm/dL Sodium 131 L (137-145) mmol/L Chloride 94 L (98-107) mmol/L BUN 81 H (7-17) mg/dL Creatinine 3.39 H (0.52-1.04) mg/dL Glucose 143 H (74-99) mg/dL POC Glucose (mg/dL) (70-110) mg/dL Calcium 8.3 L (8.4-10.2) mg/dL AST 109 H (14-36) U/L ALT 65 H (4-34) U/L Total Protein 6.1 L (6.3-8.2) g/dL Albumin 2.4 L (3.5-5.0) g/dL Free Lambda LC, Quant (0.57-2.63) mg/dL Crossmatch Blood Bank Comment Reference Lab Result 08/29/24 Range/Units 04:59 RBC (3.80-5.40) m/uL Hgb (11.4-16.0) gm/dL Hct (34.0-46.0) % RDW (11.5-15.5) % Lymphocytes # (1.0-4.8) k/uL ABG pH (7.35-7.45) ABG pCO2 (35-45) mmHg ABG Total CO2 (19-24) mmol/L Hemoglobin (11.4-16.0) gm/dL Sodium (137-145) mmol/L Chloride (98-107) mmol/L BUN (7-17) mg/dL Creatinine (0.52-1.04) mg/dL Glucose (74-99) mg/dL POC Glucose (mg/dL) 158 H (70-110) mg/dL Calcium (8.4-10.2) mg/dL AST (14-36) U/L ALT (4-34) U/L Total Protein (6.3-8.2) g/dL Albumin (3.5-5.0) g/dL Free Lambda LC, Quant (0.57-2.63) mg/dL Crossmatch Blood Bank Comment Reference Lab Result Microbiology - Last 24 Hours (Table) 08/26/24 10:57 Blood Culture - Preliminary Blood 08/25/24 12:50 Blood Culture - Preliminary Blood Assessment and Plan (1) COPD (chronic obstructive pulmonary disease) Current Visit: Yes Status: Acute Code(s): J44.9 - CHRONIC OBSTRUCTIVE PULMONARY DISEASE, UNSPECIFIED SNOMED Code(s): 24923833 (2) End stage renal disease Current Visit: Yes Status: Acute Priority: High Code(s): N18.6 - END STAGE RENAL DISEASE SNOMED Code(s): 42870716 (3) Intractable pain Current Visit: Yes Status: Acute Priority: High Code(s): R52 - PAIN, UNSPECIFIED SNOMED Code(s): 69200225 (4) Multiple myeloma Current Visit: Yes Status: Acute Priority: High Code(s): C90.00 - MULTIPLE MYELOMA NOT HAVING ACHIEVED REMISSION SNOMED Code(s): 523484102 (5) Right hip pain Current Visit: Yes Status: Acute Code(s): M25.551 - PAIN IN RIGHT HIP SNOMED Code(s): 18323695 Plan: Appreciate multiple consultants input. Dialysis treatment per nephrology. Holding off of chemotherapy for multiple myeloma at this time. Transferred to the ICU due to acute respiratory failure. COVID. Continue ventilatory and cardiac support. Time with Patient: Greater than 30
[2024-08-29] MEDS: AMIODARONE 200 MG TAB PO SCH (08:55)
--- NOTE | 2024-08-29 10:03 | P.PN ---
Subjective Progress Note Date: 08/29/24 This is a 63-year-old female patient with a known history of multiple myeloma receiving chemotherapy recently, suspected lung cancer with a PET positive right upper lobe 1.7 cm spiculated nodule, chronic obstructive pulmonary disease, chronic tobacco dependence, hypertension, hypothyroidism, end-stage renal disease receiving hemodialysis. She was admitted here on 08/21/2024 with complaints of right lower extremity pain. Been undergoing evaluation. Today on August 23, 2024 she had rapid response called on her twice for increasing shortness of breath and hypoxemia. She was subsequently transferred to the intensive care unit. She was placed on BiPAP 07/27 and 100% FiO2. She continued to do poorly and was subsequently intubated and placed on the mechanical ventilator. Currently on assist-control mode at a rate of 20, tidal volume 350, FiO2 100% and a PEEP of 5. She did undergo a left subclavian triple-lumen catheter placement and a right radial arterial line placement. Chest x-ray revealed satisfactory positions of the lines. Subtle scattered opacities may represent atypical pneumonia. Finding out today she is positive for COVID-19. Arterial blood gases post intubation revealed a PaO2 greater than 420, pCO2 of 60 and a pH of 7.28. FiO2 will be decreased accordingly. White count 8.5. Hemoglobin 8.7. Platelets 404. Sodium 129. Potassium 5.7. Bicarb 24. BUN 57. Creatinine 5.92. Glucose 82. She is sedated on propofol at 15 mcg/kg/min. The patient is seen today August 24, 2024 in follow-up in the intensive care unit. She remains intubated on the mechanical ventilator and assist-control mode at a rate of 20, tidal volume 350, FiO2 50% and a PEEP of 5. Morning blood gases revealed a PaO2 of 99. pCO2 48. pH 7.35. She is still requiring norepinephrine at 7 mcg/min. Cardizem drip at 5 mg an hour. Propofol at 40 mcg/kg/min. Lactated Ringer's at 100 mL/h. She is being nourished with vital HP at 10 mL/h with a goal of 46 mL/h. She remains on Symbicort, albuterol, Decadron. She is on Lovenox for DVT prophylaxis. Protonix for GI prophylaxis. Blood cultures now showing gram-positive cocci in clusters. Sputum culture pending. Vancomycin will be given x 1 until further cultures result. White count 6.6. Hemoglobin 7.0. Platelets 352. Sodium 132. Potassium 4.8. Bicarb 25. BUN 32. Creatinine 3.32. Glucose 108. The patient is seen today August 25, 2024 in follow-up in the intensive care unit. She remains intubated on the mechanical ventilator currently in settings of assist-control mode at a rate of 20, tidal volume 350, FiO2 50% and a PEEP of 5. Morning blood gases revealed a PaO2 of 91. pCO2 of 53 and a pH of 7.28. Chest x-ray reveals chronic and for somatic changes with mild cardiomegaly and patchy bilateral multifocal edema. No significant change. She remains on norepinephrine at 4 mcg/min. Cardizem drip is off. She was having sinus pauses yesterday. She has issues with intermittent atrial flutter. She is sedated on propofol at 40 mcg/kg/min. Lactated Ringer's at KVO. She is being nourished with vital HP at 10 mL/h. He received vancomycin x 1 for Staphylococcus epidermidis blood culture. Sputum culture revealed no growth. White count 12.9. Hemoglobin 7.5. Platelets 423. Sodium 133. Potassium 5.0. Bicarb 21. BUN 58. Creatinine 4.48. Glucose 134. She remains on Symbicort, albuterol, Decadron. Lovenox for DVT prophylaxis. Protonix for GI prophylaxis. The patient is seen today August 26, 2024 in follow-up in the intensive care unit. She remains intubated on mechanical ventilator and assist-control mode with a rate of 20, tidal valve 350, FiO2 50% and a PEEP of 5. Morning blood gases revealed a PaO2 of 90. pCO2 57 and a pH of 7.28. She did receive hemodialysis with 500 mL of fluid removed yesterday. She remains on norepinephrine at 1.7 mcg/min. Propofol at 50 mcg/kg/min. Lactated Ringer's at KVO. Vital HP at 10 mL an hour with a goal of 46 mL/h. She is continued with high residuals. May need Reglan if no improvement. She remains on albuterol, Symbicort, Decadron. Lovenox for DVT prophylaxis. Show chronic and for somatic changes and mild cardiomegaly with small to tiny left pleural effusion and patchy bilateral multifocal edema and/or acute infiltrates. No significant change. Blood culture was positive for Staphylococcus epidermidis. Sputum culture revealed no growth. White count 13.3. Hemoglobin 7.5. Platelets 364. Sodium 133. Potassium 5.1. Bicarb 24. BUN 41. Creatinine 2.91. Glucose 137. Currently in a +250 mL balance. On 08/27/2024, this patient is being seen for a follow-up. The patient remains intubated on the mechanical ventilator due to a combination of COPD and CHF exacerbation and COVID-19 infection. Noted the patient also has history of multiple myeloma receiving treatment on an outpatient basis. The patient has end-stage renal disease on hemodialysis and the patient also has history of hypertension hypothyroidism and during the course of the illness, the patient was also found to have a spiculated 1.7 cm right upper lobe lesion that was PET avid. This morning, the patient remains intubated on the mechanical ventilator. The patient is on assist-control mode at rate of 20, tidal volume of 350, FiO2 50% with a PEEP of 5. The patient remains sedated with propofol at 50 mc. The blood gases from today showed a pH of 7.26 with a pCO2 of 56 and pO2 of 70 and the chest x-ray shows stable perihilar and lower lobe pulmonary infiltrates. ET tube is around 5 cm above the danilo. The patient also has a dialysis permacath port in the right subclavian. Blood culture was positive for coagulase-negative staph and Staph epidermidis on 08/23/2024. Sputum culture was negative. The patient is currently on Decadron 8 mg p.o. daily Symbicort. No antibiotic coverage for now. is also on Lovenox for DVT prophylaxis at a dose of 30 mg subcu on a daily basis. Hemodynamically, the patient is requiring a low-dose norepinephrine for blood pressure support. Echocardiogram done on 08/23/2024 shows mild impairment of LV function with an EF of around 40 to 45% evidence of severe pulmonary hypertension and RV dilatation and estimated pulmonary artery pressures of around 56. Blood work from today shows a white cell count of 10.6, hemoglobin 7.2 and platelet count of 333. The sodium level is sodium is 135 at 135 with a potassium of 5.3, BUN 70 creatinine of 4.34. She is still on NE low dose at 0.04mc/kg/min. Her fluid balance is 1.4 L over the past 24 hours. Her last hemodialysis session was on 08/25/2024 with a total of 1 L of fluid was removed. She is on Vital HP at 30 cc. hr. Residuals are oin 250 cc range On 08/28/2023, the patient is being seen for a follow-up. Remains intubated on mechanical ventilator. Patient remains on propofol running at 45 mcg/kg/min. On today's evaluation, the patient is on assist-control mode with rate of 20, tidal volume of 450, FiO2 of 50% and the PEEP was brought up to 8 as the morning blood gases showed a pH of 7.38 with a pCO2 of 50 and pO2 of 66 and this was an FiO2 of 50%. The chest x-ray findings are essentially unchanged. The patient continues to have perihilar and lower lobe pulmonary infiltrates, patchy, slightly worse on the left and there is also some background cardiomegaly. The patient underwent hemodialysis yesterday. The patient is end-stage renal disease and she is currently on hemodialysis. She remains on norepinephrine which is running at 0.1 mcg/kg/min and the patient remains on vasopressin physiologic dose at 0.03 units. The patient has been having difficulties with atrial fibrillation since yesterday. Cardiology has been involved in the case and the patient was started on Cardizem drip and Cardizem drip is running at 5 mg an hour. Nevertheless, the patient continues to be in A-fib and she remains tachycardic. On a separate note, her hemoglobin is at 6.7. Still awaiting an appropriate manage for the packed RBC transfusion. The rest of the blood work shows a white cell count of 7.9, platelet count of 258, BUN is 48 with a creatinine of 2.8, sodium is at 132, chloride is 94 and a serum bicarb is at 27 at this point. Remains on Decadron 8 mg p.o. daily. Afebrile. Receiving enteral feeding for nutritional support. On 08/29/2024, the patient is being seen for a follow-up. The patient remains intubated on the mechanical ventilator. This morning, the patient is on propofol running at 30 mcg/kg/min. The patient is on mechanical ventilator assist-control mode rate of 20, tidal volume of 450, FiO2 50% with a PEEP of 8. Blood gas from today showed a pH of 7.27 with a pCO2 of 53 and pO2 of 97. CAT scan of the brain was negative. CAT scan of the chest was also completed yesterday and it showed interstitial infiltrates bilaterally consistent with COVID-19 pneumonia. At the same time, the patient had areas of consolidation lung bases left more than right highly suspicious for a bacterial infection. Based on that, the patient was started on a combination of Zosyn and vancomycin. The patient received a unit of packed RBC and the hemoglobin today is at 7.3. The patient remains on low-dose norepinephrine running at 0.08 mcg/kg/min. IV fluids are currently at KVO. Receiving vital high-protein at rate of 40 cc an hour. The patient encountered atrial fibrillation and she is currently back in normal sinus rhythm. She remains on amiodarone at 0.5 mg/min. Last hemodialysis session was on 08/27/2024. The white cell count is at 4.7, hemoglobin 7.3 and a platelet count of 188. Sodium is at 131 with a potassium level of 5.1, BUN is 81 with a creatinine of 3.3. No other significant events overnight. The patient is currently afebrile. Overnight, the patient was having low-grade fever Objective - Vital Signs Vital signs: Vital Signs Temp 99.5 F 08/29/24 04:00 Pulse 66 08/29/24 07:00 Resp 26 H 08/29/24 07:00 BP 95/54 08/29/24 07:00 Pulse Ox 93 L 08/29/24 06:00 FiO2 50 08/29/24 04:00 Intake & Output 08/28/24 08/29/24 08/29/24 18:59 06:59 18:59 Intake Total 9174.537 1999.414 63 Output Total 105 40 0 Balance 7028.593 9557.414 63 Weight 58.5 kg Intake: IV 136 256 23 .9NS Pressure Bag 36 36 3 Lactated Ringers 1,000 ml 100 @ 20 mls/hr IV .Q24H [facility] Rx#:[id number] Sodium Chloride 0.9% 500 220 20 ml 500 ml @ 20 mls/hr IV .Q24H [facility] Rx#:[id number] Intake, IV Titration 806.058 284.414 Amount Norepinephrine 8 mg In 112.611 116.674 Sodium Chloride 0.9% 250 ml @ 0.03 MCG/KG/MIN 3. 106 mls/hr IV .Q24H [facility] Rx#:[id number] Piperacillin-Tazobactam 3 100 .375 gm In Sodium Chloride 0.9% 100 ml @ 25 mls/hr IVPB Q8H [facility] Rx#: [id number] Sodium Chloride 0.9% 500 120 20 ml 500 ml @ 20 mls/hr IV .Q24H [facility] Rx#:[id number] Vancomycin 1,000 mg In 250 Sodium Chloride 0.9% 250 ml @ 125 mls/hr IVPB ONCE ONE Rx#:[id number] Vasopressin 60 unit In 45.185 Sodium Chloride 0.9% 150 ml @ 0.03 UNITS/MIN 4.59 mls/hr IV .Q24H [facility] Rx#: [id number] propofoL 1,000 mg In 178.262 147.740 Empty Bag 1 bag @ 15 MCG/ KG/MIN 4.815 mls/hr IV . [id number] [facility] Rx#:[id number] Tube Feeding 495 485 40 Blood Product 310 Rc As-1 Unit 310 [id number] Other 90 90 Output: Urine 105 40 0 Other: Voiding Method Indwelling Catheter Indwelling Catheter # Bowel Movements 1 1 ABP, PAP, CO, CI - Last Documented Arterial Blood Pressure 118/50 - Exam GENERAL EXAM: Intubated, sedated, 63-year-old female, on the ventilator, in no apparent distress. HEAD: Normocephalic. EYES: Normal reaction of pupils, equal size. NOSE: Clear with pink turbinates. THROAT: Oral endotracheal and gastric tube secured in place. No erythema or exudates. NECK: No masses, no JVD. CHEST: No chest wall deformity. LUNGS: Equal air entry with no crackles, wheeze, rhonchi or dullness. CVS: S1 and S2 normal with no audible murmur, regular rhythm. ABDOMEN: No hepatosplenomegaly, normal bowel sounds, no guarding or rigidity. SPINE: No scoliosis or deformity SKIN: No rashes CENTRAL NERVOUS SYSTEM: No focal deficits, tone is normal in all 4 extremities. EXTREMITIES: There is no peripheral edema. No clubbing, no cyanosis. Peripheral pulses are intact. - Labs CBC & Chem 7: 08/29/24 04:55 08/29/24 04:55 Labs: Abnormal Lab Results - Last 24 Hours (Table) 08/27/24 08/27/24 08/27/24 Range/Units 05:48 14:45 17:36 RBC (3.80-5.40) m/uL Hgb (11.4-16.0) gm/dL Hct (34.0-46.0) % RDW (11.5-15.5) % Lymphocytes # (1.0-4.8) k/uL ABG pH (7.35-7.45) ABG pCO2 (35-45) mmHg ABG Total CO2 (19-24) mmol/L Hemoglobin (11.4-16.0) gm/dL Sodium (137-145) mmol/L Chloride (98-107) mmol/L BUN (7-17) mg/dL Creatinine (0.52-1.04) mg/dL Glucose (74-99) mg/dL POC Glucose (mg/dL) (70-110) mg/dL Calcium (8.4-10.2) mg/dL AST (14-36) U/L ALT (4-34) U/L Total Protein (6.3-8.2) g/dL Albumin (3.5-5.0) g/dL Free Lambda LC, Quant 475.89 H (0.57-2.63) mg/dL Crossmatch See Detail See Detail Blood Bank Comment Sent to Reference[facility] A Reference Lab Result See BBK REF Reports A 08/28/24 08/28/24 08/28/24 Range/Units 11:48 18:24 23:09 RBC (3.80-5.40) m/uL Hgb (11.4-16.0) gm/dL Hct (34.0-46.0) % RDW (11.5-15.5) % Lymphocytes # (1.0-4.8) k/uL ABG pH (7.35-7.45) ABG pCO2 (35-45) mmHg ABG Total CO2 (19-24) mmol/L Hemoglobin (11.4-16.0) gm/dL Sodium (137-145) mmol/L Chloride (98-107) mmol/L BUN (7-17) mg/dL Creatinine (0.52-1.04) mg/dL Glucose (74-99) mg/dL POC Glucose (mg/dL) 206 H 154 H 160 H (70-110) mg/dL Calcium (8.4-10.2) mg/dL AST (14-36) U/L ALT (4-34) U/L Total Protein (6.3-8.2) g/dL Albumin (3.5-5.0) g/dL Free Lambda LC, Quant (0.57-2.63) mg/dL Crossmatch Blood Bank Comment Reference Lab Result 08/29/24 08/29/24 08/29/24 Range/Units 04:50 04:55 04:55 RBC 2.54 L (3.80-5.40) m/uL Hgb 7.3 L (11.4-16.0) gm/dL Hct 23.2 L (34.0-46.0) % RDW 19.7 H (11.5-15.5) % Lymphocytes # 0.2 L (1.0-4.8) k/uL ABG pH 7.27 L (7.35-7.45) ABG pCO2 53 H (35-45) mmHg ABG Total CO2 26 H (19-24) mmol/L Hemoglobin 7.4 L (11.4-16.0) gm/dL Sodium 131 L (137-145) mmol/L Chloride 94 L (98-107) mmol/L BUN 81 H (7-17) mg/dL Creatinine 3.39 H (0.52-1.04) mg/dL Glucose 143 H (74-99) mg/dL POC Glucose (mg/dL) (70-110) mg/dL Calcium 8.3 L (8.4-10.2) mg/dL AST 109 H (14-36) U/L ALT 65 H (4-34) U/L Total Protein 6.1 L (6.3-8.2) g/dL Albumin 2.4 L (3.5-5.0) g/dL Free Lambda LC, Quant (0.57-2.63) mg/dL Crossmatch Blood Bank Comment Reference Lab Result 08/29/24 Range/Units 04:59 RBC (3.80-5.40) m/uL Hgb (11.4-16.0) gm/dL Hct (34.0-46.0) % RDW (11.5-15.5) % Lymphocytes # (1.0-4.8) k/uL ABG pH (7.35-7.45) ABG pCO2 (35-45) mmHg ABG Total CO2 (19-24) mmol/L Hemoglobin (11.4-16.0) gm/dL Sodium (137-145) mmol/L Chloride (98-107) mmol/L BUN (7-17) mg/dL Creatinine (0.52-1.04) mg/dL Glucose (74-99) mg/dL POC Glucose (mg/dL) 158 H (70-110) mg/dL Calcium (8.4-10.2) mg/dL AST (14-36) U/L ALT (4-34) U/L Total Protein (6.3-8.2) g/dL Albumin (3.5-5.0) g/dL Free Lambda LC, Quant (0.57-2.63) mg/dL Crossmatch Blood Bank Comment Reference Lab Result Microbiology - Last 24 Hours (Table) 08/26/24 10:57 Blood Culture - Preliminary Blood 08/25/24 12:50 Blood Culture - Preliminary Blood Assessment and Plan Plan: Acute hypoxemic respiratory failure suspect secondary to an acute exacerbation of chronic obstructive pulmonary disease and acute exacerbation of chronic systolic congestive heart failure, CoVID infection. CAT scan of the chest was completed on 08/28/2024 and the findings are consistent with COVID-19 related pneumonia and the patient had patchy areas of consolidation in the lung bases left more than right suggestive of a bacterial infection based on that the patient was started on a combination of Zosyn and vancomycin. The patient remains on steroids. Low-grade fever Hypotension, currently on low-dose norepinephrine for hemodynamic support COVID-19 infection and possible COVID-pneumonia, currently on Decadron History of multiple myeloma receiving treatment as recently as July 2024, and the patient has been maintained on Revlimid that was started on 06/12/2024 with daratumumab, completed total of 3 cycles and the Velcade being held since 08/03/2024 due to cytopenias. CHF with mild impairment of LV function with an ejection fraction of 40 to 45% and RV dilatation with moderate to severe pulm hypertension with a PA pressure estimated to be at the 56 based on echocardiogram that was done on 08/24/2024. Right upper lobe 1.7 cm spiculated lesion, PET positive History of chronic tobacco dependence Hypertension End-stage renal disease receiving hemodialysis, maintained on hemodialysis on Tuesday and Saturdays via permacath. Last hemodialysis was performed on 08/27/2024 Hypothyroidism Leg pain initially causing this admission on 08/21/2024, the patient has history of chronic right hip pain and pain in the groin radiating to the right lower extremity and lateral hip. Right femur/hip and pelvic x-ray showed moderate degenerative changes. Bone scan on 08/09/2024 showed no hip fracture and no abnormal uptake to suggest any other abnormalities Such as osseous metastases. Anemia of chronic disease in addition to multiple myeloma, hemoglobin is at 7.3 and the patient received a unit of packed RBC. Plan: Continue vent support Dropped the PEEP down to 6, gradually down FiO2 CAT scan of the chest, no contrast, was noted and the patient is currently on broad-spectrum antibiotics in combination with Decadron. Continue combination of Zosyn and vancomycin Continue Decadron Back to normal sinus rhythm and the patient will be switched to oral amiodarone 4 mg p.o. twice a day Transfused with a unit of packed RBC on 08/28/2024 Keep the patient sedated on propofol Titrate norepinephrine to maintain a mean arterial pressure above 60 Continue vital HP for nourishment Hemodialysis per nephrology, will need hemodialysis today Not ready for weaning or extubation yet Will continue to follow. Condition remains critical. Critical care evaluation , done in >30 min Time with Patient: Greater than 30
--- NOTE | 2024-08-29 12:17 | P.PN ---
Subjective Patient is seen for follow-up for end-stage renal disease. Patient remains on the vent. FiO2 at 50%. Sedation has been decreased. Off of amiodarone drip. Objective - Vital Signs Vital signs: Vital Signs Temp 99.5 F 08/29/24 08:00 Pulse 80 08/29/24 10:00 Resp 25 H 08/29/24 10:00 BP 104/57 08/29/24 10:00 Pulse Ox 95 08/29/24 10:00 FiO2 50 08/29/24 10:57 Intake & Output 08/28/24 08/29/24 08/29/24 18:59 06:59 18:59 Intake Total 4742.727 6241.414 606.771 Output Total 105 40 40 Balance 5834.705 9407.414 566.771 Weight 58.5 kg Intake: IV 136 256 201 .9NS Pressure Bag 36 36 21 Lactated Ringers 1,000 ml 100 @ 20 mls/hr IV .Q24H [facility] Rx#:[id number] Piperacillin-Tazobactam 3 100 .375 gm In Sodium Chloride 0.9% 100 ml @ 25 mls/hr IVPB Q12HR [facility] Rx #:[id number] Sodium Chloride 0.9% 500 220 80 ml 500 ml @ 20 mls/hr IV .Q24H [facility] Rx#:[id number] Intake, IV Titration 806.058 284.414 295.771 Amount Amiodarone 450 mg In 250 Dextrose 5% in Water 250 ml @ 0.5 MG/MIN 16.667 mls/hr IV .Q15H [facility] Rx#: [id number] Norepinephrine 8 mg In 112.611 116.674 19.583 Sodium Chloride 0.9% 250 ml @ 0.03 MCG/KG/MIN 3. 106 mls/hr IV .Q24H [facility] Rx#:[id number] Piperacillin-Tazobactam 3 100 .375 gm In Sodium Chloride 0.9% 100 ml @ 25 mls/hr IVPB Q8H [facility] Rx#: [id number] Sodium Chloride 0.9% 500 120 20 ml 500 ml @ 20 mls/hr IV .Q24H [facility] Rx#:[id number] Vancomycin 1,000 mg In 250 Sodium Chloride 0.9% 250 ml @ 125 mls/hr IVPB ONCE ONE Rx#:[id number] Vasopressin 60 unit In 45.185 Sodium Chloride 0.9% 150 ml @ 0.03 UNITS/MIN 4.59 mls/hr IV .Q24H [facility] Rx#: [id number] propofoL 1,000 mg In 178.262 147.740 26.188 Empty Bag 1 bag @ 15 MCG/ KG/MIN 4.815 mls/hr IV . [id number] [facility] Rx#:[id number] Tube Feeding 495 485 80 Blood Product 310 Rc As-1 Unit 310 [id number] Other 90 90 30 Output: Urine 105 40 40 Other: Voiding Method Indwelling Catheter Indwelling Catheter # Bowel Movements 1 1 ABP, PAP, CO, CI - Last Documented Arterial Blood Pressure 139/60 - Exam Patient is sedated and intubated Examination of the heart S1 and S2 Examination of the lungs bilateral breath sounds are heard Abdomen is soft nontender No edema noted in the lower extremities - Labs CBC & Chem 7: 08/29/24 04:55 08/29/24 04:55 Labs: Abnormal Lab Results - Last 24 Hours (Table) 08/27/24 08/27/24 08/27/24 Range/Units 05:48 14:45 17:36 RBC (3.80-5.40) m/uL Hgb (11.4-16.0) gm/dL Hct (34.0-46.0) % RDW (11.5-15.5) % Lymphocytes # (1.0-4.8) k/uL ABG pH (7.35-7.45) ABG pCO2 (35-45) mmHg ABG Total CO2 (19-24) mmol/L Hemoglobin (11.4-16.0) gm/dL Sodium (137-145) mmol/L Chloride (98-107) mmol/L BUN (7-17) mg/dL Creatinine (0.52-1.04) mg/dL Glucose (74-99) mg/dL POC Glucose (mg/dL) (70-110) mg/dL Calcium (8.4-10.2) mg/dL AST (14-36) U/L ALT (4-34) U/L Total Protein (6.3-8.2) g/dL Albumin (3.5-5.0) g/dL Free Lambda LC, Quant 475.89 H (0.57-2.63) mg/dL Crossmatch See Detail See Detail Blood Bank Comment Sent to Reference[facility] A Reference Lab Result See BBK REF Reports A 08/28/24 08/28/24 08/29/24 Range/Units 18:24 23:09 04:50 RBC (3.80-5.40) m/uL Hgb (11.4-16.0) gm/dL Hct (34.0-46.0) % RDW (11.5-15.5) % Lymphocytes # (1.0-4.8) k/uL ABG pH 7.27 L (7.35-7.45) ABG pCO2 53 H (35-45) mmHg ABG Total CO2 26 H (19-24) mmol/L Hemoglobin 7.4 L (11.4-16.0) gm/dL Sodium (137-145) mmol/L Chloride (98-107) mmol/L BUN (7-17) mg/dL Creatinine (0.52-1.04) mg/dL Glucose (74-99) mg/dL POC Glucose (mg/dL) 154 H 160 H (70-110) mg/dL Calcium (8.4-10.2) mg/dL AST (14-36) U/L ALT (4-34) U/L Total Protein (6.3-8.2) g/dL Albumin (3.5-5.0) g/dL Free Lambda LC, Quant (0.57-2.63) mg/dL Crossmatch Blood Bank Comment Reference Lab Result 08/29/24 08/29/24 08/29/24 Range/Units 04:55 04:55 04:59 RBC 2.54 L (3.80-5.40) m/uL Hgb 7.3 L (11.4-16.0) gm/dL Hct 23.2 L (34.0-46.0) % RDW 19.7 H (11.5-15.5) % Lymphocytes # 0.2 L (1.0-4.8) k/uL ABG pH (7.35-7.45) ABG pCO2 (35-45) mmHg ABG Total CO2 (19-24) mmol/L Hemoglobin (11.4-16.0) gm/dL Sodium 131 L (137-145) mmol/L Chloride 94 L (98-107) mmol/L BUN 81 H (7-17) mg/dL Creatinine 3.39 H (0.52-1.04) mg/dL Glucose 143 H (74-99) mg/dL POC Glucose (mg/dL) 158 H (70-110) mg/dL Calcium 8.3 L (8.4-10.2) mg/dL AST 109 H (14-36) U/L ALT 65 H (4-34) U/L Total Protein 6.1 L (6.3-8.2) g/dL Albumin 2.4 L (3.5-5.0) g/dL Free Lambda LC, Quant (0.57-2.63) mg/dL Crossmatch Blood Bank Comment Reference Lab Result Microbiology - Last 24 Hours (Table) 08/26/24 10:57 Blood Culture - Preliminary Blood 08/25/24 12:50 Blood Culture - Preliminary Blood Assessment and Plan Assessment: 1. End-stage renal disease on hemodialysis via right IJ permacath. 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 2. Right leg pain with soft tissue mass identified near the hip area. Status post pelvic CT which suggests an enlarged lymph node 3. Anemia, multifactorial associated with underlying multiple myeloma, chemotherapy and renal failure 4. Pulmonary nodule/mass 5. Volume overload 6. Acute hypoxic respiratory failure secondary to COVID pneumonia 7. A-fib with RVR Plan: Hemodialysis in a.m.
[2024-08-29] MEDS: VANCOMYCIN 1,000 MG in SODIUM CHLORIDE 0.9% 250 ML IVPB ONE (12:31)
[2024-08-29 12:37] LABS: Glucose,Whole Blood 126 mg/dL (70-110)
--- NOTE | 2024-08-29 13:17 | P.PN ---
Subjective Progress Note Date: 08/28/24 Seen in ICU at todays visit, remains ventilated. Positive for COVID infection. CT chest obtained showing possible acute pneumonia. IV abx started. CT brain showing no acute bleed or mass effect. WBC 7.9, hgb 6.7, plt 258. 1 unit PRBCs ordered Objective - Vital Signs Vital signs: Vital Signs Temp 99.5 F 08/29/24 08:00 Pulse 80 08/29/24 10:00 Resp 25 H 08/29/24 10:00 BP 104/57 08/29/24 10:00 Pulse Ox 95 08/29/24 10:00 FiO2 50 08/29/24 10:57 Intake & Output 08/28/24 08/29/24 08/29/24 18:59 06:59 18:59 Intake Total 2568.314 2381.414 606.771 Output Total 105 40 40 Balance 3277.483 6105.414 566.771 Weight 58.5 kg Intake: IV 136 256 201 .9NS Pressure Bag 36 36 21 Lactated Ringers 1,000 ml 100 @ 20 mls/hr IV .Q24H [facility] Rx#:[id number] Piperacillin-Tazobactam 3 100 .375 gm In Sodium Chloride 0.9% 100 ml @ 25 mls/hr IVPB Q12HR [facility] Rx #:[id number] Sodium Chloride 0.9% 500 220 80 ml 500 ml @ 20 mls/hr IV .Q24H [facility] Rx#:[id number] Intake, IV Titration 806.058 284.414 295.771 Amount Amiodarone 450 mg In 250 Dextrose 5% in Water 250 ml @ 0.5 MG/MIN 16.667 mls/hr IV .Q15H [facility] Rx#: [id number] Norepinephrine 8 mg In 112.611 116.674 19.583 Sodium Chloride 0.9% 250 ml @ 0.03 MCG/KG/MIN 3. 106 mls/hr IV .Q24H [facility] Rx#:[id number] Piperacillin-Tazobactam 3 100 .375 gm In Sodium Chloride 0.9% 100 ml @ 25 mls/hr IVPB Q8H [facility] Rx#: [id number] Sodium Chloride 0.9% 500 120 20 ml 500 ml @ 20 mls/hr IV .Q24H [facility] Rx#:[id number] Vancomycin 1,000 mg In 250 Sodium Chloride 0.9% 250 ml @ 125 mls/hr IVPB ONCE ONE Rx#:[id number] Vasopressin 60 unit In 45.185 Sodium Chloride 0.9% 150 ml @ 0.03 UNITS/MIN 4.59 mls/hr IV .Q24H [facility] Rx#: [id number] propofoL 1,000 mg In 178.262 147.740 26.188 Empty Bag 1 bag @ 15 MCG/ KG/MIN 4.815 mls/hr IV . [id number] [facility] Rx#:[id number] Tube Feeding 495 485 80 Blood Product 310 Rc As-1 Unit 310 [id number] Other 90 90 30 Output: Urine 105 40 40 Other: Voiding Method Indwelling Catheter Indwelling Catheter # Bowel Movements 1 1 ABP, PAP, CO, CI - Last Documented Arterial Blood Pressure 139/60 - Constitutional General appearance: Present: no acute distress - Respiratory Details: ventilated breath sounds - Cardiovascular Details: skin warm and dry - Neurologic Neurologic Comment(s): sedated - Labs CBC & Chem 7: 08/29/24 04:55 08/29/24 04:55 Labs: Abnormal Lab Results - Last 24 Hours (Table) 08/27/24 08/27/24 08/27/24 Range/Units 05:48 14:45 17:36 RBC (3.80-5.40) m/uL Hgb (11.4-16.0) gm/dL Hct (34.0-46.0) % RDW (11.5-15.5) % Lymphocytes # (1.0-4.8) k/uL ABG pH (7.35-7.45) ABG pCO2 (35-45) mmHg ABG Total CO2 (19-24) mmol/L Hemoglobin (11.4-16.0) gm/dL Sodium (137-145) mmol/L Chloride (98-107) mmol/L BUN (7-17) mg/dL Creatinine (0.52-1.04) mg/dL Glucose (74-99) mg/dL POC Glucose (mg/dL) (70-110) mg/dL Calcium (8.4-10.2) mg/dL AST (14-36) U/L ALT (4-34) U/L Total Protein (6.3-8.2) g/dL Albumin (3.5-5.0) g/dL Free Lambda LC, Quant 475.89 H (0.57-2.63) mg/dL Crossmatch See Detail See Detail Blood Bank Comment Sent to ReferenceLab A Reference Lab Result See BBK REF Reports A 08/28/24 08/28/24 08/28/24 Range/Units 11:48 18:24 23:09 RBC (3.80-5.40) m/uL Hgb (11.4-16.0) gm/dL Hct (34.0-46.0) % RDW (11.5-15.5) % Lymphocytes # (1.0-4.8) k/uL ABG pH (7.35-7.45) ABG pCO2 (35-45) mmHg ABG Total CO2 (19-24) mmol/L Hemoglobin (11.4-16.0) gm/dL Sodium (137-145) mmol/L Chloride (98-107) mmol/L BUN (7-17) mg/dL Creatinine (0.52-1.04) mg/dL Glucose (74-99) mg/dL POC Glucose (mg/dL) 206 H 154 H 160 H (70-110) mg/dL Calcium (8.4-10.2) mg/dL AST (14-36) U/L ALT (4-34) U/L Total Protein (6.3-8.2) g/dL Albumin (3.5-5.0) g/dL Free Lambda LC, Quant (0.57-2.63) mg/dL Crossmatch Blood Bank Comment Reference Lab Result 08/29/24 08/29/24 08/29/24 Range/Units 04:50 04:55 04:55 RBC 2.54 L (3.80-5.40) m/uL Hgb 7.3 L (11.4-16.0) gm/dL Hct 23.2 L (34.0-46.0) % RDW 19.7 H (11.5-15.5) % Lymphocytes # 0.2 L (1.0-4.8) k/uL ABG pH 7.27 L (7.35-7.45) ABG pCO2 53 H (35-45) mmHg ABG Total CO2 26 H (19-24) mmol/L Hemoglobin 7.4 L (11.4-16.0) gm/dL Sodium 131 L (137-145) mmol/L Chloride 94 L (98-107) mmol/L BUN 81 H (7-17) mg/dL Creatinine 3.39 H (0.52-1.04) mg/dL Glucose 143 H (74-99) mg/dL POC Glucose (mg/dL) (70-110) mg/dL Calcium 8.3 L (8.4-10.2) mg/dL AST 109 H (14-36) U/L ALT 65 H (4-34) U/L Total Protein 6.1 L (6.3-8.2) g/dL Albumin 2.4 L (3.5-5.0) g/dL Free Lambda LC, Quant (0.57-2.63) mg/dL Crossmatch Blood Bank Comment Reference Lab Result 08/29/24 Range/Units 04:59 RBC (3.80-5.40) m/uL Hgb (11.4-16.0) gm/dL Hct (34.0-46.0) % RDW (11.5-15.5) % Lymphocytes # (1.0-4.8) k/uL ABG pH (7.35-7.45) ABG pCO2 (35-45) mmHg ABG Total CO2 (19-24) mmol/L Hemoglobin (11.4-16.0) gm/dL Sodium (137-145) mmol/L Chloride (98-107) mmol/L BUN (7-17) mg/dL Creatinine (0.52-1.04) mg/dL Glucose (74-99) mg/dL POC Glucose (mg/dL) 158 H (70-110) mg/dL Calcium (8.4-10.2) mg/dL AST (14-36) U/L ALT (4-34) U/L Total Protein (6.3-8.2) g/dL Albumin (3.5-5.0) g/dL Free Lambda LC, Quant (0.57-2.63) mg/dL Crossmatch Blood Bank Comment Reference Lab Result Microbiology - Last 24 Hours (Table) 08/26/24 10:57 Blood Culture - Preliminary Blood 08/25/24 12:50 Blood Culture - Preliminary Blood - Imaging and Cardiology CT scan - chest: report reviewed CT Scan - head: report reviewed Assessment and Plan (1) End stage renal disease Current Visit: Yes Status: Acute Priority: High Code(s): N18.6 - END STAGE RENAL DISEASE SNOMED Code(s): 27623892 (2) Intractable pain Current Visit: Yes Status: Acute Priority: High Code(s): R52 - PAIN, UNSPECIFIED SNOMED Code(s): 33161671 (3) Multiple myeloma Current Visit: Yes Status: Acute Priority: High Code(s): C90.00 - MULTIPLE MYELOMA NOT HAVING ACHIEVED REMISSION SNOMED Code(s): 974797331 Plan: Intractable RLE pain: Presented to emergency room with complaints of worsening right lower extremity pain over the last 24 hours. Patient does have history of chronic right hip pain. She reports pain is in her right groin radiating down her leg, but typically pain is more lateral towards the hip. Denies low back pain, RLE numbness tingling, and leg swelling. Denies any known injury. -Right femur/hip and pelvis x-rays showing moderate degenerative changes. Of note pt did have NM bone scan on 08/09/24 which showed no hip fracture and no abnormal uptake to suggest osseous mets. -Palpable approx 7 cm mass noted in right groin. Right groin US obtained showing moderate right hip osteoarthritis with moderate joint effusion. A 7.9 x 4.1 x 2.4 cm isoechoic abnormality seems to surround the right hip, could represent large ganglion cyst containing internal thickened material versus a soft tissue mass. CT pelvis was subsequently obtained which revealed right inguinal mass lateral to the vascular structures appears homogeneous, adenopathy is favored. Also noted a hypodensity measuring 0.9 cm within the anterior left inguinal thigh musculature, likely a hematoma -IR consult placed for core biopsy of inguinal mass. Spoke with interventional radiology, after further review, believe right inguinal mass is consistent with joint effusion. Recommending MRI to further evaluate. Once pt more stable will obtain further imaging COVID, hypoxia: Pt had became more confused with labored breathing noted -Viral panel positive for COVID, she has since been intubated due to hypoxia. CT chest concerning for possible developing pneumonia -IV abx started -IVIG was given due to hypogammaglobulinemia and acute infection Multiple myeloma: -Oncology history as dictated in the HPI -RVD was initiated on 06/12/24 with daratumumab started with cycle 2. She most recently completed cycle 3 on 08/13, with velcade being held since 08/03 due to cytopenias -Hgb has been stable in the 7-8 range. Hgb today 6.7, 1 unit PRBCs ordered. WBC/ANC adequate. -Anemia secondary to MM, chemo effects and ESRD. Continue to monitor CBC. Transfuse for hgb < 7, with irradiated blood products -Treatment will be on hold until pt acutely recovers
--- NOTE | 2024-08-29 15:34 | P.PN ---
Subjective PROGRESS NOTE The patient is a 63-year-old female who was admitted with symptoms of progressive dyspnea, significant right groin discomfort, has a history of multiple myeloma, end-stage renal disease, lung nodules and evidence of malignancy. On presentation she was in atrial flutter with rapid ventricular response. Yesterday she became more dyspneic requiring mechanical ventilation and was transferred to the ICU. She is intubated and sedated at this time. She was in sinus mechanism for a period of time but she is in atrial fibrillation at this point. There is no evidence of ventricular ectopic activity. In the past her echocardiogram showed a preserved systolic function with mild mitral and mild to moderate tricuspid regurgitation and moderate pulmonary hypertension. August 25: The patient remains intubated and sedated, receiving dialysis today. She is off of IV Cardizem because of pauses. She continues to be in atrial fibrillation with overall controlled ventricular response. She continues to be on norepinephrine. The plan is to continue intubation today and attempt weaning tomorrow. Echocardiogram showed an ejection fraction of 40 to 45% with mild to moderate tricuspid regurgitation August 26: She remains intubated and sedated, in sinus mechanism with frequent PACs. She continues to be on norepinephrine, there is no evidence of ventricular tachycardia. She has been receiving hemodialysis. Continues to be on m etoprolol tartrate, tolerating the treatment, off IV Cardizem 08/27 Patient remains intubated and sedated. Currently on 50% FiO2. Low-dose norepinephrine. He remains in sinus rhythm with PACs. Remains sedated on propofol. Hemoglobin down to 6.7 however no active source of bleeding per nursing. She has not been on any anticoagulation. 08/28 Patient with continued anemia 6.6. No significant source of bleeding. She did require increasing vasopressors and vasopressin is added and norepinephrine slightly increased. She did have more tachycardia and therefore Cardizem drip was switched to amiodarone drip. Remains on FiO2 50% on the ventilator. Underwent HD yesterday. 08/29 Patient converted to normal sinus rhythm. Has been weaned off of vasopressors. Plan for hemodialysis tomorrow. On oral amiodarone. Gen: ill appearing LUNGS: Clear anteriorly HEART: Regular rate and rhythm, with extrasystole S1, S2. No S3. Systolic ejection murmur ABDOMEN: Soft, positive bowel sounds, no organomegaly EXTREMETIES: No edema, right inguinal mass IMPRESSION: 1. Acute respiratory failure with a combination of COVID infection, history of COPD and lung mass 2. Multiple myeloma 3. Paroxysmal atrial fibrillation and atrial flutter, off IV Cardizem because pauses. Not anticoagulated because of severe anemia, back in sinus mechanism with multiple PACs. 4. Anemia most likely related to the multiple myeloma 5. End-stage renal disease on hemodialysis 6. Prior history of hypertension 7. Right groin mass could be related to her malignancy PLAN: Heart rates improved and back in normal rhythm on amiodarone. Continue with oral amiodarone. Hold anticoagulation given continued anemia. Objective - Vital Signs Vital signs: Vital Signs Temp 99 F 08/29/24 12:00 Pulse 81 08/29/24 15:00 Resp 23 08/29/24 15:00 BP 109/59 08/29/24 15:00 Pulse Ox 94 L 08/29/24 15:00 FiO2 50 08/29/24 15:18 Intake & Output 08/28/24 08/29/24 08/29/24 18:59 06:59 18:59 Intake Total 7171.062 0591.414 1184.118 Output Total 105 40 97 Balance 1573.107 8289.414 1087.118 Weight 58.5 kg Intake: IV 136 256 581 .9NS Pressure Bag 36 36 51 Lactated Ringers 1,000 ml 100 @ 20 mls/hr IV .Q24H [facility] Rx#:[id number] Piperacillin-Tazobactam 3 100 .375 gm In Sodium Chloride 0.9% 100 ml @ 25 mls/hr IVPB Q12HR [facility] Rx #:[id number] Sodium Chloride 0.9% 500 220 180 ml 500 ml @ 20 mls/hr IV .Q24H [facility] Rx#:[id number] Vancomycin 1,000 mg In 250 Sodium Chloride 0.9% 250 ml @ 125 mls/hr IVPB ONCE ONE Rx#:[id number] Intake, IV Titration 806.058 284.414 303.118 Amount Amiodarone 450 mg In 250 Dextrose 5% in Water 250 ml @ 0.5 MG/MIN 16.667 mls/hr IV .Q15H [facility] Rx#: [id number] Norepinephrine 8 mg In 112.611 116.674 19.841 Sodium Chloride 0.9% 250 ml @ 0.03 MCG/KG/MIN 3. 106 mls/hr IV .Q24H [facility] Rx#:[id number] Piperacillin-Tazobactam 3 100 .375 gm In Sodium Chloride 0.9% 100 ml @ 25 mls/hr IVPB Q8H [facility] Rx#: [id number] Sodium Chloride 0.9% 500 120 20 ml 500 ml @ 20 mls/hr IV .Q24H [facility] Rx#:[id number] Vancomycin 1,000 mg In 250 Sodium Chloride 0.9% 250 ml @ 125 mls/hr IVPB ONCE ONE Rx#:[id number] Vasopressin 60 unit In 45.185 Sodium Chloride 0.9% 150 ml @ 0.03 UNITS/MIN 4.59 mls/hr IV .Q24H [facility] Rx#: [id number] propofoL 1,000 mg In 178.262 147.740 33.277 Empty Bag 1 bag @ 15 MCG/ KG/MIN 4.815 mls/hr IV . [id number] [facility] Rx#:[id number] Tube Feeding 495 485 240 Blood Product 310 Rc As-1 Unit 310 [id number] Other 90 90 60 Output: Urine 105 40 97 Other: Voiding Method Indwelling Catheter Indwelling Catheter # Bowel Movements 1 1 1 ABP, PAP, CO, CI - Last Documented Arterial Blood Pressure 114/46 - Labs CBC & Chem 7: 08/29/24 04:55 08/29/24 04:55 Labs: Abnormal Lab Results - Last 24 Hours (Table) 08/27/24 08/27/24 08/27/24 Range/Units 05:48 14:45 17:36 RBC (3.80-5.40) m/uL Hgb (11.4-16.0) gm/dL Hct (34.0-46.0) % RDW (11.5-15.5) % Lymphocytes # (1.0-4.8) k/uL ABG pH (7.35-7.45) ABG pCO2 (35-45) mmHg ABG Total CO2 (19-24) mmol/L Hemoglobin (11.4-16.0) gm/dL Sodium (137-145) mmol/L Chloride (98-107) mmol/L BUN (7-17) mg/dL Creatinine (0.52-1.04) mg/dL Glucose (74-99) mg/dL POC Glucose (mg/dL) (70-110) mg/dL Calcium (8.4-10.2) mg/dL AST (14-36) U/L ALT (4-34) U/L Total Protein (6.3-8.2) g/dL Albumin (3.5-5.0) g/dL Free Lambda LC, Quant 475.89 H (0.57-2.63) mg/dL Crossmatch See Detail See Detail Blood Bank Comment Sent to Reference[facility] A Reference Lab Result See BBK REF Reports A 08/28/24 08/28/24 08/29/24 Range/Units 18:24 23:09 04:50 RBC (3.80-5.40) m/uL Hgb (11.4-16.0) gm/dL Hct (34.0-46.0) % RDW (11.5-15.5) % Lymphocytes # (1.0-4.8) k/uL ABG pH 7.27 L (7.35-7.45) ABG pCO2 53 H (35-45) mmHg ABG Total CO2 26 H (19-24) mmol/L Hemoglobin 7.4 L (11.4-16.0) gm/dL Sodium (137-145) mmol/L Chloride (98-107) mmol/L BUN (7-17) mg/dL Creatinine (0.52-1.04) mg/dL Glucose (74-99) mg/dL POC Glucose (mg/dL) 154 H 160 H (70-110) mg/dL Calcium (8.4-10.2) mg/dL AST (14-36) U/L ALT (4-34) U/L Total Protein (6.3-8.2) g/dL Albumin (3.5-5.0) g/dL Free Lambda LC, Quant (0.57-2.63) mg/dL Crossmatch Blood Bank Comment Reference Lab Result 08/29/24 08/29/24 08/29/24 Range/Units 04:55 04:55 04:59 RBC 2.54 L (3.80-5.40) m/uL Hgb 7.3 L (11.4-16.0) gm/dL Hct 23.2 L (34.0-46.0) % RDW 19.7 H (11.5-15.5) % Lymphocytes # 0.2 L (1.0-4.8) k/uL ABG pH (7.35-7.45) ABG pCO2 (35-45) mmHg ABG Total CO2 (19-24) mmol/L Hemoglobin (11.4-16.0) gm/dL Sodium 131 L (137-145) mmol/L Chloride 94 L (98-107) mmol/L BUN 81 H (7-17) mg/dL Creatinine 3.39 H (0.52-1.04) mg/dL Glucose 143 H (74-99) mg/dL POC Glucose (mg/dL) 158 H (70-110) mg/dL Calcium 8.3 L (8.4-10.2) mg/dL AST 109 H (14-36) U/L ALT 65 H (4-34) U/L Total Protein 6.1 L (6.3-8.2) g/dL Albumin 2.4 L (3.5-5.0) g/dL Free Lambda LC, Quant (0.57-2.63) mg/dL Crossmatch Blood Bank Comment Reference Lab Result 08/29/24 Range/Units 12:36 RBC (3.80-5.40) m/uL Hgb (11.4-16.0) gm/dL Hct (34.0-46.0) % RDW (11.5-15.5) % Lymphocytes # (1.0-4.8) k/uL ABG pH (7.35-7.45) ABG pCO2 (35-45) mmHg ABG Total CO2 (19-24) mmol/L Hemoglobin (11.4-16.0) gm/dL Sodium (137-145) mmol/L Chloride (98-107) mmol/L BUN (7-17) mg/dL Creatinine (0.52-1.04) mg/dL Glucose (74-99) mg/dL POC Glucose (mg/dL) 126 H (70-110) mg/dL Calcium (8.4-10.2) mg/dL AST (14-36) U/L ALT (4-34) U/L Total Protein (6.3-8.2) g/dL Albumin (3.5-5.0) g/dL Free Lambda LC, Quant (0.57-2.63) mg/dL Crossmatch Blood Bank Comment Reference Lab Result Microbiology - Last 24 Hours (Table) 08/26/24 10:57 Blood Culture - Preliminary Blood 08/25/24 12:50 Blood Culture - Preliminary Blood
[2024-08-29 17:29] LABS: Glucose,Whole Blood 156 mg/dL (70-110)
[2024-08-30 00:31] LABS: Glucose,Whole Blood 147 mg/dL (70-110)
[2024-08-30 05:12] LABS: ABG HCO3 23 mmol/L (21-25); ABG Oxygen Saturation 93.4 % (94-97); ABG PCO2 51 mmHg (35-45); ABG PH 7.26 (7.35-7.45); ABG PO2 78 mmHg (83-108); ABG TCO2 25 mmol/L (19-24)
[2024-08-30 05:13] LABS: Allen Test Performed? no
[2024-08-30 05:26] LABS: Glucose,Whole Blood 165 mg/dL (70-110)
[2024-08-30 05:47] LABS: Anisocytosis Slight; Basophils % (A) 0 %; Eosinophils % (A) 0 %; HCT 25.3 % (34.0-46.0); HGB 8.2 gm/dL (11.4-16.0); Hypochromasia Moderate; Lymphocytes # (A) 0.2 k/uL (1.0-4.8); Lymphocytes % (A) 6 %; MCH 28.8 pg (25.0-35.0); MCHC 32.3 g/dL (31.0-37.0); MCV 89.2 fL (80.0-100.0); Mean Platelet Volume 8.9; Monocytes # (A) 0.2 k/uL (0-1.0); Monocytes % (A) 5 %; Neutrophils # (A) 3.3 k/uL (1.3-7.7); Neutrophils % (A) 88 %; Platelet Count 143 k/uL (150-450); RBC 2.84 m/uL (3.80-5.40); RDW 19.9 % (11.5-15.5); WBC 3.7 k/uL (3.8-10.6)
[2024-08-30 06:10] LABS: Anion Gap 18 mmol/L; Calcium 8.7 mg/dL (8.4-10.2); Carbon Dioxide 19 mmol/L (22-30); Chloride 93 mmol/L (98-107); Glucose 158 mg/dL (74-99); Potassium 5.9 mmol/L (3.5-5.1); Sodium 130 mmol/L (137-145)
[2024-08-30 06:15] LABS: Vancomycin,Random 25.1 ug/mL
--- NOTE | 2024-08-30 06:18 | P.PN ---
Subjective PROGRESS NOTE The patient is a 63-year-old female who was admitted with symptoms of progressive dyspnea, significant right groin discomfort, has a history of multiple myeloma, end-stage renal disease, lung nodules and evidence of malignancy. On presentation she was in atrial flutter with rapid ventricular response. Yesterday she became more dyspneic requiring mechanical ventilation and was transferred to the ICU. She is intubated and sedated at this time. She was in sinus mechanism for a period of time but she is in atrial fibrillation at this point. There is no evidence of ventricular ectopic activity. In the past her echocardiogram showed a preserved systolic function with mild mitral and mild to moderate tricuspid regurgitation and moderate pulmonary hypertension. August 25: The patient remains intubated and sedated, receiving dialysis today. She is off of IV Cardizem because of pauses. She continues to be in atrial fibrillation with overall controlled ventricular response. She continues to be on norepinephrine. The plan is to continue intubation today and attempt weaning tomorrow. Echocardiogram showed an ejection fraction of 40 to 45% with mild to moderate tricuspid regurgitation August 26: She remains intubated and sedated, in sinus mechanism with frequent PACs. She continues to be on norepinephrine, there is no evidence of ventricular tachycardia. She has been receiving hemodialysis. Continues to be on m etoprolol tartrate, tolerating the treatment, off IV Cardizem 08/27 Patient remains intubated and sedated. Currently on 50% FiO2. Low-dose norepinephrine. He remains in sinus rhythm with PACs. Remains sedated on propofol. Hemoglobin down to 6.7 however no active source of bleeding per nursing. She has not been on any anticoagulation. 08/28 Patient with continued anemia 6.6. No significant source of bleeding. She did require increasing vasopressors and vasopressin is added and norepinephrine slightly increased. She did have more tachycardia and therefore Cardizem drip was switched to amiodarone drip. Remains on FiO2 50% on the ventilator. Underwent HD yesterday. 08/29 Patient converted to normal sinus rhythm. Has been weaned off of vasopressors. Plan for hemodialysis tomorrow. On oral amiodarone. 08/30 Patient seen and examined. Remains on ventilator with FiO2 50% and PEEP of 6. Off of any days of pressors. Remains in normal sinus rhythm. Gen: ill appearing LUNGS: Clear anteriorly HEART: Regular rate and rhythm, with extrasystole S1, S2. No S3. Systolic ejection murmur ABDOMEN: Soft, positive bowel sounds, no organomegaly EXTREMETIES: No edema, right inguinal mass IMPRESSION: 1. Acute respiratory failure with a combination of COVID infection, history of COPD and lung mass 2. Multiple myeloma 3. Paroxysmal atrial fibrillation and atrial flutter, off IV Cardizem because pauses. Not anticoagulated because of severe anemia, back in sinus mechanism with multiple PACs. 4. Anemia most likely related to the multiple myeloma 5. End-stage renal disease on hemodialysis 6. Prior history of hypertension 7. Right groin mass could be related to her malignancy PLAN: Continue with oral amiodarone. Remains in sinus rhythm. No anticoagulation given continued anemia. Hemodialysis per nephrology likely this AM Objective - Vital Signs Vital signs: Vital Signs Temp 98 F 08/29/24 20:00 Pulse 78 08/30/24 06:00 Resp 23 08/30/24 06:00 BP 116/64 08/30/24 06:00 Pulse Ox 94 L 08/30/24 06:00 FiO2 50 08/30/24 04:13 Intake & Output 08/29/24 08/29/24 08/30/24 06:59 18:59 06:59 Intake Total 4535.803 3595.223 785.626 Output Total 40 127 75 Balance 4153.815 5458.223 710.626 Weight 58.5 kg 59.3 kg Intake: IV 256 685 286 .9NS Pressure Bag 36 75 66 Piperacillin-Tazobactam 3 100 .375 gm In Sodium Chloride 0.9% 100 ml @ 25 mls/hr IVPB Q12HR [facility] Rx #:[id number] Sodium Chloride 0.9% 500 220 260 220 ml 500 ml @ 20 mls/hr IV .Q24H [facility] Rx#:[id number] Vancomycin 1,000 mg In 250 Sodium Chloride 0.9% 250 ml @ 125 mls/hr IVPB ONCE ONE Rx#:[id number] Intake, IV Titration 284.414 311.223 59.626 Amount Amiodarone 450 mg In 250 Dextrose 5% in Water 250 ml @ 0.5 MG/MIN 16.667 mls/hr IV .Q15H [facility] Rx#: [id number] Norepinephrine 8 mg In 116.674 19.841 Sodium Chloride 0.9% 250 ml @ 0.03 MCG/KG/MIN 3. 106 mls/hr IV .Q24H [facility] Rx#:[id number] Sodium Chloride 0.9% 500 20 ml 500 ml @ 20 mls/hr IV .Q24H [facility] Rx#:[id number] propofoL 1,000 mg In 147.740 41.382 59.626 Empty Bag 1 bag @ 15 MCG/ KG/MIN 4.815 mls/hr IV . [id number] [facility] Rx#:[id number] Tube Feeding 485 400 440 Blood Product 310 Rc As-1 Unit 310 [id number] Other 90 90 Output: Urine 40 127 75 Other: Voiding Method Indwelling Catheter Indwelling Catheter Indwelling Catheter # Bowel Movements 1 1 1 ABP, PAP, CO, CI - Last Documented Arterial Blood Pressure 133/58 - Labs CBC & Chem 7: 08/30/24 05:25 08/29/24 04:55 Labs: Abnormal Lab Results - Last 24 Hours (Table) 08/29/24 08/29/24 08/30/24 Range/Units 12:36 17:28 00:30 WBC (3.8-10.6) k/uL RBC (3.80-5.40) m/uL Hgb (11.4-16.0) gm/dL Hct (34.0-46.0) % RDW (11.5-15.5) % Plt Count (150-450) k/uL Lymphocytes # (1.0-4.8) k/uL ABG pH (7.35-7.45) ABG pCO2 (35-45) mmHg ABG pO2 (83-108) mmHg ABG Total CO2 (19-24) mmol/L ABG O2 Saturation (94-97) % Hemoglobin (11.4-16.0) gm/dL POC Glucose (mg/dL) 126 H 156 H 147 H (70-110) mg/dL 08/30/24 08/30/24 08/30/24 Range/Units 05:08 05:24 05:25 WBC 3.7 L (3.8-10.6) k/uL RBC 2.84 L (3.80-5.40) m/uL Hgb 8.2 L (11.4-16.0) gm/dL Hct 25.3 L (34.0-46.0) % RDW 19.9 H (11.5-15.5) % Plt Count 143 L (150-450) k/uL Lymphocytes # 0.2 L (1.0-4.8) k/uL ABG pH 7.26 L (7.35-7.45) ABG pCO2 51 H (35-45) mmHg ABG pO2 78 L (83-108) mmHg ABG Total CO2 25 H (19-24) mmol/L ABG O2 Saturation 93.4 L (94-97) % Hemoglobin 7.9 L (11.4-16.0) gm/dL POC Glucose (mg/dL) 165 H (70-110) mg/dL Microbiology - Last 24 Hours (Table) 08/26/24 10:57 Blood Culture - Preliminary Blood 08/28/24 11:40 Nasal Screen MRSA/MSSA - Final Nasal Swab
[2024-08-30 06:30] LABS: African American GFR (CKD) 13 (>60 ml/min/1.73 sqM); Blood Urea Nitrogen 119 mg/dL (7-17); Non-African American GFR(CKD) 12 (>60 ml/min/1.73 sqM)
[2024-08-30] MEDS: INSULIN REGULAR 100 UNIT/ML VIAL (IV) IV ONE (07:39)
[2024-08-30] MEDS: DEXTROSE 50% SYRINGE 50 ML IVP STA (07:40)
--- NOTE | 2024-08-30 07:49 | XR ---
EXAMINATION TYPE: XR chest 1V portable DATE OF EXAM: 08/30/2024 5:19 AM COMPARISON: 08/29/2024 CLINICAL INDICATION: Female, 64 years old with history of mechanical ventilation, , FINDINGS: ET and NG tubes are satisfactory. Left CVC tip at the caval atrial junction. Right-sided double-lumen hemodialysis catheter tips at the mid SVC. The heart remains mildly enlarged. Hyperinflation with ongoing diffuse interstitial and multifocal pa tchy opacities. No sizable pleural effusion. IMPRESSION: Mild cardiomegaly, COPD, and ongoing diffuse interstitial and multifocal patchy opacities. Possible s light improvement left mid lung. [facility], Workstation: [facility], 08/30/2024 7:46 AM
--- NOTE | 2024-08-30 08:49 | P.PN ---
Subjective Progress Note Date: 08/30/24 This is a 63-year-old female who presented to the emergency department with complaints of right lower extremity pain. Patient has a history of end-stage renal disease, as well as lung cancer and a recent diagnosis of multiple myeloma. Patient denies any trauma to leg. She reports she has had similar danial n in the past in her right lower extremity but workup has been normal. XR's showing arthritis on admission. Patient maintained on hemodialysis as an outpatient, is due for dialysis today. 08/23/2024 Patient seen and evaluated laying in bed this morning. Last night she developed SVT and was transferred to the cardiac floor. Cardiology has been consulted and the patient was started on a Cardizem drip. Patient denies any shortness of breath or chest pain at time of SVT last night. Patient had a CT of the pelvis yesterday which shows possible enlarged lymph node in the right inguinal area. 08/27/2024 Patient remains in the ICU on mechanical ventilation. She was positive for COVID last week. Patient still having tachycardia and tachypnea. 08/28/2024 Patient remains in the ICU on mechanical ventilation. Pulmonary has ordered a CT of the head and chest for today. Patient continues to have tachycardia and tachypnea. Hemoglobin was 6.7 yesterday and patient received 1 unit of PRBCs. 08/30/2024 Patient remains in the ICU and on mechanical ventilation. Her heart rate has improved. She will be getting dialysis today. Objective - Vital Signs Vital signs: Vital Signs Temp 97.3 F L 08/30/24 08:00 Pulse 79 08/30/24 08:00 Resp 26 H 08/30/24 08:00 BP 117/61 08/30/24 08:00 Pulse Ox 94 L 08/30/24 08:00 FiO2 50 08/30/24 08:28 Intake & Output 08/29/24 08/30/24 08/30/24 18:59 06:59 18:59 Intake Total 1486.223 851.626 96 Output Total 127 80 25 Balance 1359.223 771.626 71 Weight 59.3 kg Intake: IV 685 312 26 .9NS Pressure Bag 75 72 6 Piperacillin-Tazobactam 3 100 .375 gm In Sodium Chloride 0.9% 100 ml @ 25 mls/hr IVPB Q12HR [facility] Rx #:[id number] Sodium Chloride 0.9% 500 260 240 20 ml 500 ml @ 20 mls/hr IV .Q24H [facility] Rx#:[id number] Vancomycin 1,000 mg In 250 Sodium Chloride 0.9% 250 ml @ 125 mls/hr IVPB ONCE ONE Rx#:[id number] Intake, IV Titration 311.223 59.626 Amount Amiodarone 450 mg In 250 Dextrose 5% in Water 250 ml @ 0.5 MG/MIN 16.667 mls/hr IV .Q15H [facility] Rx#: [id number] Norepinephrine 8 mg In 19.841 Sodium Chloride 0.9% 250 ml @ 0.03 MCG/KG/MIN 3. 106 mls/hr IV .Q24H [facility] Rx#:[id number] propofoL 1,000 mg In 41.382 59.626 Empty Bag 1 bag @ 15 MCG/ KG/MIN 4.815 mls/hr IV . [id number] [facility] Rx#:[id number] Tube Feeding 400 480 40 Other 90 30 Output: Urine 127 80 25 Other: Voiding Method Indwelling Catheter Indwelling Catheter # Bowel Movements 1 1 ABP, PAP, CO, CI - Last Documented Arterial Blood Pressure 102/45 - Exam intubated - Constitutional General appearance: Present: no acute distress - EENT Eyes: Present: PERRLA - Neck Neck: Absent: lymphadenopathy, rigidity - Respiratory Respiratory: bilateral: rhonchi - Cardiovascular Rhythm: regular Heart sounds: normal: S1, S2 - Gastrointestinal General gastrointestinal: Present: soft - Integumentary Integumentary: Present: normal, normal turgor - Musculoskeletal Musculoskeletal: Present: generalized weakness - Labs CBC & Chem 7: 08/30/24 05:25 08/30/24 05:25 Labs: Abnormal Lab Results - Last 24 Hours (Table) 08/29/24 08/29/24 08/30/24 Range/Units 12:36 17:28 00:30 WBC (3.8-10.6) k/uL RBC (3.80-5.40) m/uL Hgb (11.4-16.0) gm/dL Hct (34.0-46.0) % RDW (11.5-15.5) % Plt Count (150-450) k/uL Lymphocytes # (1.0-4.8) k/uL ABG pH (7.35-7.45) ABG pCO2 (35-45) mmHg ABG pO2 (83-108) mmHg ABG Total CO2 (19-24) mmol/L ABG O2 Saturation (94-97) % Hemoglobin (11.4-16.0) gm/dL Sodium (137-145) mmol/L Potassium (3.5-5.1) mmol/L Chloride (98-107) mmol/L Carbon Dioxide (22-30) mmol/L BUN (7-17) mg/dL Creatinine (0.52-1.04) mg/dL Glucose (74-99) mg/dL POC Glucose (mg/dL) 126 H 156 H 147 H (70-110) mg/dL 08/30/24 08/30/24 08/30/24 Range/Units 05:08 05:24 05:25 WBC (3.8-10.6) k/uL RBC (3.80-5.40) m/uL Hgb (11.4-16.0) gm/dL Hct (34.0-46.0) % RDW (11.5-15.5) % Plt Count (150-450) k/uL Lymphocytes # (1.0-4.8) k/uL ABG pH 7.26 L (7.35-7.45) ABG pCO2 51 H (35-45) mmHg ABG pO2 78 L (83-108) mmHg ABG Total CO2 25 H (19-24) mmol/L ABG O2 Saturation 93.4 L (94-97) % Hemoglobin 7.9 L (11.4-16.0) gm/dL Sodium 130 L (137-145) mmol/L Potassium 5.9 H (3.5-5.1) mmol/L Chloride 93 L (98-107) mmol/L Carbon Dioxide 19 L (22-30) mmol/L BUN 119 H* (7-17) mg/dL Creatinine 3.83 H (0.52-1.04) mg/dL Glucose 158 H (74-99) mg/dL POC Glucose (mg/dL) 165 H (70-110) mg/dL 08/30/24 Range/Units 05:25 WBC 3.7 L (3.8-10.6) k/uL RBC 2.84 L (3.80-5.40) m/uL Hgb 8.2 L (11.4-16.0) gm/dL Hct 25.3 L (34.0-46.0) % RDW 19.9 H (11.5-15.5) % Plt Count 143 L (150-450) k/uL Lymphocytes # 0.2 L (1.0-4.8) k/uL ABG pH (7.35-7.45) ABG pCO2 (35-45) mmHg ABG pO2 (83-108) mmHg ABG Total CO2 (19-24) mmol/L ABG O2 Saturation (94-97) % Hemoglobin (11.4-16.0) gm/dL Sodium (137-145) mmol/L Potassium (3.5-5.1) mmol/L Chloride (98-107) mmol/L Carbon Dioxide (22-30) mmol/L BUN (7-17) mg/dL Creatinine (0.52-1.04) mg/dL Glucose (74-99) mg/dL POC Glucose (mg/dL) (70-110) mg/dL Microbiology - Last 24 Hours (Table) 08/26/24 10:57 Blood Culture - Preliminary Blood 08/28/24 11:40 Nasal Screen MRSA/MSSA - Final Nasal Swab Assessment and Plan (1) Lung cancer Current Visit: Yes Status: Acute Code(s): C34.90 - MALIGNANT NEOPLASM OF UNSP PART OF UNSP BRONCHUS OR LUNG SNOMED Code(s): 483310590 (2) Multiple myeloma Current Visit: Yes Status: Acute Priority: High Code(s): C90.00 - MULTIPLE MYELOMA NOT HAVING ACHIEVED REMISSION SNOMED Code(s): 090025105 (3) Intractable pain Current Visit: Yes Status: Acute Priority: High Code(s): R52 - PAIN, UNSPECIFIED SNOMED Code(s): 86282558 (4) COPD (chronic obstructive pulmonary disease) Current Visit: Yes Status: Acute Code(s): J44.9 - CHRONIC OBSTRUCTIVE PULMONARY DISEASE, UNSPECIFIED SNOMED Code(s): 16101564 (5) End stage renal disease Current Visit: Yes Status: Acute Priority: High Code(s): N18.6 - END STAGE RENAL DISEASE SNOMED Code(s): 26665829 (6) COVID Current Visit: Yes Status: Acute Code(s): U07.1 - COVID-19 SNOMED Code(s): 611378029 Plan: Appreciate multiple consultants. Check CBC and CMP in the morning. Patient seen and evaluated by nurse practitioner, physician in agreement with plan.
[2024-08-30] MEDS: METOCLOPRAMIDE 5 MG/ML 2 ML VIAL IVP PRN (10:21)
[2024-08-30 11:27] LABS: Glucose,Whole Blood 135 mg/dL (70-110)
--- NOTE | 2024-08-30 12:17 | P.PN ---
Subjective Patient is seen for follow-up for end-stage renal disease. Patient remains on the vent. FiO2 at 50%. Patient is seen on dialysis. Blood pressure dropped during treatment. No significant UF planned for today. Heart rate has also increased. I will give her back about 500 cc of fluid Objective - Vital Signs Vital signs: Vital Signs Temp 97.3 F L 08/30/24 08:00 Pulse 121 H 08/30/24 11:00 Resp 20 08/30/24 11:00 BP 93/61 08/30/24 11:00 Pulse Ox 94 L 08/30/24 11:00 FiO2 50 08/30/24 11:00 Intake & Output 08/29/24 08/30/24 08/30/24 18:59 06:59 18:59 Intake Total 1486.223 851.626 314.802 Output Total 127 80 25 Balance 1359.223 771.626 289.802 Weight 59.3 kg 59.3 kg Intake: IV 685 312 104 .9NS Pressure Bag 75 72 24 Piperacillin-Tazobactam 3 100 .375 gm In Sodium Chloride 0.9% 100 ml @ 25 mls/hr IVPB Q12HR [facility] Rx #:[id number] Sodium Chloride 0.9% 500 260 240 80 ml 500 ml @ 20 mls/hr IV .Q24H [facility] Rx#:[id number] Vancomycin 1,000 mg In 250 Sodium Chloride 0.9% 250 ml @ 125 mls/hr IVPB ONCE ONE Rx#:[id number] Intake, IV Titration 311.223 59.626 20.802 Amount Amiodarone 450 mg In 250 Dextrose 5% in Water 250 ml @ 0.5 MG/MIN 16.667 mls/hr IV .Q15H [facility] Rx#: [id number] Norepinephrine 8 mg In 19.841 1.328 Sodium Chloride 0.9% 250 ml @ 0.03 MCG/KG/MIN 3. 106 mls/hr IV .Q24H [facility] Rx#:[id number] propofoL 1,000 mg In 41.382 59.626 19.474 Empty Bag 1 bag @ 15 MCG/ KG/MIN 4.815 mls/hr IV . [id number] [facility] Rx#:[id number] Tube Feeding 400 480 160 Other 90 30 Output: Urine 127 80 25 Other: Voiding Method Indwelling Catheter Indwelling Catheter # Bowel Movements 1 1 1 ABP, PAP, CO, CI - Last Documented Arterial Blood Pressure 105/57 - Exam Patient is sedated and intubated Examination of the heart S1 and S2 Examination of the lungs bilateral breath sounds are heard Abdomen is soft nontender No edema noted in the lower extremities - Labs CBC & Chem 7: 08/30/24 05:25 08/30/24 05:25 Labs: Abnormal Lab Results - Last 24 Hours (Table) 08/29/24 08/29/24 08/30/24 Range/Units 12:36 17:28 00:30 WBC (3.8-10.6) k/uL RBC (3.80-5.40) m/uL Hgb (11.4-16.0) gm/dL Hct (34.0-46.0) % RDW (11.5-15.5) % Plt Count (150-450) k/uL Lymphocytes # (1.0-4.8) k/uL ABG pH (7.35-7.45) ABG pCO2 (35-45) mmHg ABG pO2 (83-108) mmHg ABG Total CO2 (19-24) mmol/L ABG O2 Saturation (94-97) % Hemoglobin (11.4-16.0) gm/dL Sodium (137-145) mmol/L Potassium (3.5-5.1) mmol/L Chloride (98-107) mmol/L Carbon Dioxide (22-30) mmol/L BUN (7-17) mg/dL Creatinine (0.52-1.04) mg/dL Glucose (74-99) mg/dL POC Glucose (mg/dL) 126 H 156 H 147 H (70-110) mg/dL 08/30/24 08/30/24 08/30/24 Range/Units 05:08 05:24 05:25 WBC (3.8-10.6) k/uL RBC (3.80-5.40) m/uL Hgb (11.4-16.0) gm/dL Hct (34.0-46.0) % RDW (11.5-15.5) % Plt Count (150-450) k/uL Lymphocytes # (1.0-4.8) k/uL ABG pH 7.26 L (7.35-7.45) ABG pCO2 51 H (35-45) mmHg ABG pO2 78 L (83-108) mmHg ABG Total CO2 25 H (19-24) mmol/L ABG O2 Saturation 93.4 L (94-97) % Hemoglobin 7.9 L (11.4-16.0) gm/dL Sodium 130 L (137-145) mmol/L Potassium 5.9 H (3.5-5.1) mmol/L Chloride 93 L (98-107) mmol/L Carbon Dioxide 19 L (22-30) mmol/L BUN 119 H* (7-17) mg/dL Creatinine 3.83 H (0.52-1.04) mg/dL Glucose 158 H (74-99) mg/dL POC Glucose (mg/dL) 165 H (70-110) mg/dL 08/30/24 08/30/24 Range/Units 05:25 11:24 WBC 3.7 L (3.8-10.6) k/uL RBC 2.84 L (3.80-5.40) m/uL Hgb 8.2 L (11.4-16.0) gm/dL Hct 25.3 L (34.0-46.0) % RDW 19.9 H (11.5-15.5) % Plt Count 143 L (150-450) k/uL Lymphocytes # 0.2 L (1.0-4.8) k/uL ABG pH (7.35-7.45) ABG pCO2 (35-45) mmHg ABG pO2 (83-108) mmHg ABG Total CO2 (19-24) mmol/L ABG O2 Saturation (94-97) % Hemoglobin (11.4-16.0) gm/dL Sodium (137-145) mmol/L Potassium (3.5-5.1) mmol/L Chloride (98-107) mmol/L Carbon Dioxide (22-30) mmol/L BUN (7-17) mg/dL Creatinine (0.52-1.04) mg/dL Glucose (74-99) mg/dL POC Glucose (mg/dL) 135 H (70-110) mg/dL Microbiology - Last 24 Hours (Table) 08/26/24 10:57 Blood Culture - Preliminary Blood 08/28/24 11:40 Nasal Screen MRSA/MSSA - Final Nasal Swab Assessment and Plan Assessment: 1. End-stage renal disease on hemodialysis via right IJ permacath. 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 2. Right leg pain with soft tissue mass identified near the hip area. Status post pelvic CT which suggests an enlarged lymph node 3. Anemia, multifactorial associated with underlying multiple myeloma, chemotherapy and renal failure 4. Pulmonary nodule/mass 5. Volume overload 6. Acute hypoxic respiratory failure secondary to COVID pneumonia 7. A-fib with RVR 8. Hyperkalemia expect improvement with dialysis. Plan: Hemodialysis today with no significant UF. 500 cc of fluid given so far during treatment.
[2024-08-30] MEDS ORDERED: ZINC OXIDE PASTE (Z-GUARD) 1 APPLIC TOPICAL PRN (12:52)
[2024-08-30] MEDS: PIPERACILLIN-TAZOBACTAM 3.375 GM in SODIUM CHLORIDE 0.9% 100 ML IVPB SCH (13:25)
[2024-08-30 13:33] LABS: ABG Base Excess 2.3 mmol/L; ABG HCO3 28 mmol/L (21-25); ABG Oxygen Saturation 99.2 % (94-97); ABG PCO2 51 mmHg (35-45); ABG PH 7.35 (7.35-7.45); ABG PO2 140 mmHg (83-108); ABG TCO2 30 mmol/L (19-24)
[2024-08-30 13:35] LABS: Allen Test Performed? no
--- NOTE | 2024-08-30 13:54 | P.PN ---
Subjective Progress Note Date: 08/30/24 Seen in ICU at todays visit, remains ventilated, receiving HD. WBC 3.7, ANC 3.3, hgb 8.2, plt 143. Continues zosyn, pt afebrile Objective - Vital Signs Vital signs: Vital Signs Temp 97.3 F L 08/30/24 08:00 Pulse 121 H 08/30/24 11:00 Resp 20 08/30/24 11:00 BP 93/61 08/30/24 11:00 Pulse Ox 94 L 08/30/24 11:00 FiO2 50 08/30/24 11:00 Intake & Output 08/29/24 08/30/24 08/30/24 18:59 06:59 18:59 Intake Total 1486.223 851.626 314.802 Output Total 127 80 25 Balance 1359.223 771.626 289.802 Weight 59.3 kg 59.3 kg Intake: IV 685 312 104 .9NS Pressure Bag 75 72 24 Piperacillin-Tazobactam 3 100 .375 gm In Sodium Chloride 0.9% 100 ml @ 25 mls/hr IVPB Q12HR [facility] Rx #:[id number] Sodium Chloride 0.9% 500 260 240 80 ml 500 ml @ 20 mls/hr IV .Q24H [facility] Rx#:[id number] Vancomycin 1,000 mg In 250 Sodium Chloride 0.9% 250 ml @ 125 mls/hr IVPB ONCE ONE Rx#:[id number] Intake, IV Titration 311.223 59.626 20.802 Amount Amiodarone 450 mg In 250 Dextrose 5% in Water 250 ml @ 0.5 MG/MIN 16.667 mls/hr IV .Q15H [facility] Rx#: [id number] Norepinephrine 8 mg In 19.841 1.328 Sodium Chloride 0.9% 250 ml @ 0.03 MCG/KG/MIN 3. 106 mls/hr IV .Q24H [facility] Rx#:[id number] propofoL 1,000 mg In 41.382 59.626 19.474 Empty Bag 1 bag @ 15 MCG/ KG/MIN 4.815 mls/hr IV . [id number] [facility] Rx#:[id number] Tube Feeding 400 480 160 Other 90 30 Output: Urine 127 80 25 Other: Voiding Method Indwelling Catheter Indwelling Catheter # Bowel Movements 1 1 1 ABP, PAP, CO, CI - Last Documented Arterial Blood Pressure 105/57 - Constitutional General appearance: Present: no acute distress - Respiratory Details: ventilated breath sounds - Cardiovascular Details: skin warm and dry - Integumentary Integumentary: Absent: cyanotic, jaundiced - Labs CBC & Chem 7: 08/30/24 05:25 08/30/24 05:25 Labs: Abnormal Lab Results - Last 24 Hours (Table) 08/29/24 08/29/24 08/30/24 Range/Units 12:36 17:28 00:30 WBC (3.8-10.6) k/uL RBC (3.80-5.40) m/uL Hgb (11.4-16.0) gm/dL Hct (34.0-46.0) % RDW (11.5-15.5) % Plt Count (150-450) k/uL Lymphocytes # (1.0-4.8) k/uL ABG pH (7.35-7.45) ABG pCO2 (35-45) mmHg ABG pO2 (83-108) mmHg ABG Total CO2 (19-24) mmol/L ABG O2 Saturation (94-97) % Hemoglobin (11.4-16.0) gm/dL Sodium (137-145) mmol/L Potassium (3.5-5.1) mmol/L Chloride (98-107) mmol/L Carbon Dioxide (22-30) mmol/L BUN (7-17) mg/dL Creatinine (0.52-1.04) mg/dL Glucose (74-99) mg/dL POC Glucose (mg/dL) 126 H 156 H 147 H (70-110) mg/dL 08/30/24 08/30/24 08/30/24 Range/Units 05:08 05:24 05:25 WBC (3.8-10.6) k/uL RBC (3.80-5.40) m/uL Hgb (11.4-16.0) gm/dL Hct (34.0-46.0) % RDW (11.5-15.5) % Plt Count (150-450) k/uL Lymphocytes # (1.0-4.8) k/uL ABG pH 7.26 L (7.35-7.45) ABG pCO2 51 H (35-45) mmHg ABG pO2 78 L (83-108) mmHg ABG Total CO2 25 H (19-24) mmol/L ABG O2 Saturation 93.4 L (94-97) % Hemoglobin 7.9 L (11.4-16.0) gm/dL Sodium 130 L (137-145) mmol/L Potassium 5.9 H (3.5-5.1) mmol/L Chloride 93 L (98-107) mmol/L Carbon Dioxide 19 L (22-30) mmol/L BUN 119 H* (7-17) mg/dL Creatinine 3.83 H (0.52-1.04) mg/dL Glucose 158 H (74-99) mg/dL POC Glucose (mg/dL) 165 H (70-110) mg/dL 08/30/24 08/30/24 Range/Units 05:25 11:24 WBC 3.7 L (3.8-10.6) k/uL RBC 2.84 L (3.80-5.40) m/uL Hgb 8.2 L (11.4-16.0) gm/dL Hct 25.3 L (34.0-46.0) % RDW 19.9 H (11.5-15.5) % Plt Count 143 L (150-450) k/uL Lymphocytes # 0.2 L (1.0-4.8) k/uL ABG pH (7.35-7.45) ABG pCO2 (35-45) mmHg ABG pO2 (83-108) mmHg ABG Total CO2 (19-24) mmol/L ABG O2 Saturation (94-97) % Hemoglobin (11.4-16.0) gm/dL Sodium (137-145) mmol/L Potassium (3.5-5.1) mmol/L Chloride (98-107) mmol/L Carbon Dioxide (22-30) mmol/L BUN (7-17) mg/dL Creatinine (0.52-1.04) mg/dL Glucose (74-99) mg/dL POC Glucose (mg/dL) 135 H (70-110) mg/dL Microbiology - Last 24 Hours (Table) 08/26/24 10:57 Blood Culture - Preliminary Blood 08/28/24 11:40 Nasal Screen MRSA/MSSA - Final Nasal Swab Assessment and Plan (1) End stage renal disease Current Visit: Yes Status: Acute Priority: High Code(s): N18.6 - END STAGE RENAL DISEASE SNOMED Code(s): 34494709 (2) Intractable pain Current Visit: Yes Status: Acute Priority: High Code(s): R52 - PAIN, UNSPECIFIED SNOMED Code(s): 20359849 (3) Multiple myeloma Current Visit: Yes Status: Acute Priority: High Code(s): C90.00 - MULTIPLE MYELOMA NOT HAVING ACHIEVED REMISSION SNOMED Code(s): 441431979 Plan: Intractable RLE pain: Presented to emergency room with complaints of worsening right lower extremity pain over the last 24 hours. Patient does have history of chronic right hip pain. She reports pain is in her right groin radiating down her leg, but typically pain is more lateral towards the hip. Denies low back pain, RLE numbness tingling, and leg swelling. Denies any known injury. -Right femur/hip and pelvis x-rays showing moderate degenerative changes. Of note pt did have NM bone scan on 08/09/24 which showed no hip fracture and no abnormal uptake to suggest osseous mets. -Palpable approx 7 cm mass noted in right groin. Right groin US obtained showing moderate right hip osteoarthritis with moderate joint effusion. A 7.9 x 4.1 x 2.4 cm isoechoic abnormality seems to surround the right hip, could represent large ganglion cyst containing internal thickened material versus a soft tissue mass. CT pelvis was subsequently obtained which revealed right inguinal mass lateral to the vascular structures appears homogeneous, adenopathy is favored. Also noted a hypodensity measuring 0.9 cm within the anterior left inguinal thigh musculature, likely a hematoma -IR consult placed for core biopsy of inguinal mass. Spoke with interventional radiology, after further review, believe right inguinal mass is consistent with joint effusion. Recommending MRI to further evaluate. Once pt more stable will obtain further imaging COVID, hypoxia: Pt had became more confused with labored breathing noted -Viral panel positive for COVID, she has since been intubated due to hypoxia. 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 She most recently completed cycle 3 on 08/13, with velcade being held since 08/03 due to cytopenias -Hgb has been stable in the 7-8 range. S/p 1 unit PRBCs. WBC/ANC adequate. -Anemia secondary to MM, chemo effects and ESRD. Continue to monitor CBC. Transfuse for hgb < 7, with irradiated blood products -Treatment will be on hold until pt acutely recovers
--- NOTE | 2024-08-30 14:27 | P.PN ---
Subjective Progress Note Date: 08/30/24 This is a 63-year-old female patient with a known history of multiple myeloma receiving chemotherapy recently, suspected lung cancer with a PET positive right upper lobe 1.7 cm spiculated nodule, chronic obstructive pulmonary disease, chronic tobacco dependence, hypertension, hypothyroidism, end-stage renal disease receiving hemodialysis. She was admitted here on 08/21/2024 with complaints of right lower extremity pain. Been undergoing evaluation. Today on August 23, 2024 she had rapid response called on her twice for increasing shortness of breath and hypoxemia. She was subsequently transferred to the intensive care unit. She was placed on BiPAP 07/27 and 100% FiO2. She continued to do poorly and was subsequently intubated and placed on the mechanical ventilator. Currently on assist-control mode at a rate of 20, tidal volume 350, FiO2 100% and a PEEP of 5. She did undergo a left subclavian triple-lumen catheter placement and a right radial arterial line placement. Chest x-ray revealed satisfactory positions of the lines. Subtle scattered opacities may represent atypical pneumonia. Finding out today she is positive for COVID-19. Arterial blood gases post intubation revealed a PaO2 greater than 420, pCO2 of 60 and a pH of 7.28. FiO2 will be decreased accordingly. White count 8.5. Hemoglobin 8.7. Platelets 404. Sodium 129. Potassium 5.7. Bicarb 24. BUN 57. Creatinine 5.92. Glucose 82. She is sedated on propofol at 15 mcg/kg/min. The patient is seen today August 24, 2024 in follow-up in the intensive care unit. She remains intubated on the mechanical ventilator and assist-control mode at a rate of 20, tidal volume 350, FiO2 50% and a PEEP of 5. Morning blood gases revealed a PaO2 of 99. pCO2 48. pH 7.35. She is still requiring norepinephrine at 7 mcg/min. Cardizem drip at 5 mg an hour. Propofol at 40 mcg/kg/min. Lactated Ringer's at 100 mL/h. She is being nourished with vital HP at 10 mL/h with a goal of 46 mL/h. She remains on Symbicort, albuterol, Decadron. She is on Lovenox for DVT prophylaxis. Protonix for GI prophylaxis. Blood cultures now showing gram-positive cocci in clusters. Sputum culture pending. Vancomycin will be given x 1 until further cultures result. White count 6.6. Hemoglobin 7.0. Platelets 352. Sodium 132. Potassium 4.8. Bicarb 25. BUN 32. Creatinine 3.32. Glucose 108. The patient is seen today August 25, 2024 in follow-up in the intensive care unit. She remains intubated on the mechanical ventilator currently in settings of assist-control mode at a rate of 20, tidal volume 350, FiO2 50% and a PEEP of 5. Morning blood gases revealed a PaO2 of 91. pCO2 of 53 and a pH of 7.28. Chest x-ray reveals chronic and for somatic changes with mild cardiomegaly and patchy bilateral multifocal edema. No significant change. She remains on norepinephrine at 4 mcg/min. Cardizem drip is off. She was having sinus pauses yesterday. She has issues with intermittent atrial flutter. She is sedated on propofol at 40 mcg/kg/min. Lactated Ringer's at KVO. She is being nourished with vital HP at 10 mL/h. He received vancomycin x 1 for Staphylococcus epidermidis blood culture. Sputum culture revealed no growth. White count 12.9. Hemoglobin 7.5. Platelets 423. Sodium 133. Potassium 5.0. Bicarb 21. BUN 58. Creatinine 4.48. Glucose 134. She remains on Symbicort, albuterol, Decadron. Lovenox for DVT prophylaxis. Protonix for GI prophylaxis. The patient is seen today August 26, 2024 in follow-up in the intensive care unit. She remains intubated on mechanical ventilator and assist-control mode with a rate of 20, tidal valve 350, FiO2 50% and a PEEP of 5. Morning blood gases revealed a PaO2 of 90. pCO2 57 and a pH of 7.28. She did receive hemodialysis with 500 mL of fluid removed yesterday. She remains on norepinephrine at 1.7 mcg/min. Propofol at 50 mcg/kg/min. Lactated Ringer's at KVO. Vital HP at 10 mL an hour with a goal of 46 mL/h. She is continued with high residuals. May need Reglan if no improvement. She remains on albuterol, Symbicort, Decadron. Lovenox for DVT prophylaxis. Show chronic and for somatic changes and mild cardiomegaly with small to tiny left pleural effusion and patchy bilateral multifocal edema and/or acute infiltrates. No significant change. Blood culture was positive for Staphylococcus epidermidis. Sputum culture revealed no growth. White count 13.3. Hemoglobin 7.5. Platelets 364. Sodium 133. Potassium 5.1. Bicarb 24. BUN 41. Creatinine 2.91. Glucose 137. Currently in a +250 mL balance. On 08/27/2024, this patient is being seen for a follow-up. The patient remains intubated on the mechanical ventilator due to a combination of COPD and CHF exacerbation and COVID-19 infection. Noted the patient also has history of multiple myeloma receiving treatment on an outpatient basis. The patient has end-stage renal disease on hemodialysis and the patient also has history of hypertension hypothyroidism and during the course of the illness, the patient was also found to have a spiculated 1.7 cm right upper lobe lesion that was PET avid. This morning, the patient remains intubated on the mechanical ventilator. The patient is on assist-control mode at rate of 20, tidal volume of 350, FiO2 50% with a PEEP of 5. The patient remains sedated with propofol at 50 mc. The blood gases from today showed a pH of 7.26 with a pCO2 of 56 and pO2 of 70 and the chest x-ray shows stable perihilar and lower lobe pulmonary infiltrates. ET tube is around 5 cm above the danilo. The patient also has a dialysis permacath port in the right subclavian. Blood culture was positive for coagulase-negative staph and Staph epidermidis on 08/23/2024. Sputum culture was negative. The patient is currently on Decadron 8 mg p.o. daily Symbicort. No antibiotic coverage for now. is also on Lovenox for DVT prophylaxis at a dose of 30 mg subcu on a daily basis. Hemodynamically, the patient is requiring a low-dose norepinephrine for blood pressure support. Echocardiogram done on 08/23/2024 shows mild impairment of LV function with an EF of around 40 to 45% evidence of severe pulmonary hypertension and RV dilatation and estimated pulmonary artery pressures of around 56. Blood work from today shows a white cell count of 10.6, hemoglobin 7.2 and platelet count of 333. The sodium level is sodium is 135 at 135 with a potassium of 5.3, BUN 70 creatinine of 4.34. She is still on NE low dose at 0.04mc/kg/min. Her fluid balance is 1.4 L over the past 24 hours. Her last hemodialysis session was on 08/25/2024 with a total of 1 L of fluid was removed. She is on Vital HP at 30 cc. hr. Residuals are oin 250 cc range On 08/28/2023, the patient is being seen for a follow-up. Remains intubated on mechanical ventilator. Patient remains on propofol running at 45 mcg/kg/min. On today's evaluation, the patient is on assist-control mode with rate of 20, tidal volume of 450, FiO2 of 50% and the PEEP was brought up to 8 as the morning blood gases showed a pH of 7.38 with a pCO2 of 50 and pO2 of 66 and this was an FiO2 of 50%. The chest x-ray findings are essentially unchanged. The patient continues to have perihilar and lower lobe pulmonary infiltrates, patchy, slightly worse on the left and there is also some background cardiomegaly. The patient underwent hemodialysis yesterday. The patient is end-stage renal disease and she is currently on hemodialysis. She remains on norepinephrine which is running at 0.1 mcg/kg/min and the patient remains on vasopressin physiologic dose at 0.03 units. The patient has been having difficulties with atrial fibrillation since yesterday. Cardiology has been involved in the case and the patient was started on Cardizem drip and Cardizem drip is running at 5 mg an hour. Nevertheless, the patient continues to be in A-fib and she remains tachycardic. On a separate note, her hemoglobin is at 6.7. Still awaiting an appropriate manage for the packed RBC transfusion. The rest of the blood work shows a white cell count of 7.9, platelet count of 258, BUN is 48 with a creatinine of 2.8, sodium is at 132, chloride is 94 and a serum bicarb is at 27 at this point. Remains on Decadron 8 mg p.o. daily. Afebrile. Receiving enteral feeding for nutritional support. On 08/29/2024, the patient is being seen for a follow-up. The patient remains intubated on the mechanical ventilator. This morning, the patient is on propofol running at 30 mcg/kg/min. The patient is on mechanical ventilator assist-control mode rate of 20, tidal volume of 450, FiO2 50% with a PEEP of 8. Blood gas from today showed a pH of 7.27 with a pCO2 of 53 and pO2 of 97. CAT scan of the brain was negative. CAT scan of the chest was also completed yesterday and it showed interstitial infiltrates bilaterally consistent with COVID-19 pneumonia. At the same time, the patient had areas of consolidation lung bases left more than right highly suspicious for a bacterial infection. Based on that, the patient was started on a combination of Zosyn and vancomycin. The patient received a unit of packed RBC and the hemoglobin today is at 7.3. The patient remains on low-dose norepinephrine running at 0.08 mcg/kg/min. IV fluids are currently at KVO. Receiving vital high-protein at rate of 40 cc an hour. The patient encountered atrial fibrillation and she is currently back in normal sinus rhythm. She remains on amiodarone at 0.5 mg/min. Last hemodialysis session was on 08/27/2024. The white cell count is at 4.7, hemoglobin 7.3 and a platelet count of 188. Sodium is at 131 with a potassium level of 5.1, BUN is 81 with a creatinine of 3.3. No other significant events overnight. The patient is currently afebrile. Overnight, the patient was having low-grade fever On 08/30/2024, the patient is being seen for a follow-up. The patient remains intubated on the mechanical ventilator. This morning, the patient is on propofol running at 15 mcg/kg/min. She is on assist-control mode of mechanical ventilation and the patient is on assist-control rate of 20, tidal volume of 450, FiO2 50% with a PEEP of 6. Blood gas showed pH of 7.26 with a pCO2 of 57 and pO2 of 78. Chest x-ray shows stable, probably slightly improved perihilar and lower lobe pulmonary filtration as the patient is currently on a combination of Zosyn and vancomycin. The patient is also to undergo hemodialysis today. Hemodynamically, the patient is in normal sinus rhythm. The patient is on no pressors. The patient is dealing vital high-protein at rate of 40 cc an hour. Blood work from today shows a white cell count of 3.7 with a hemoglobin 8.2 and a platelet count of 143. The sodium is at 130, potassium is at 5.9 with a chloride of 93 and a bicarb of 19. BUN is 119 with a potassium level of 3.8. The patient remains on Decadron. Rest of the medications are essentially unchanged. The patient was given a sedation holiday yesterday and the patient was able to arouse and follows some simple commands. Not ready for extubation yet. Hemoglobin has been stable. No signs of any bleeding. Objective - Vital Signs Vital signs: Vital Signs Temp 97.3 F L 08/30/24 08:00 Pulse 79 08/30/24 08:00 Resp 26 H 08/30/24 08:00 BP 117/61 08/30/24 08:00 Pulse Ox 94 L 08/30/24 08:00 FiO2 50 08/30/24 08:28 Intake & Output 08/29/24 08/30/24 08/30/24 18:59 06:59 18:59 Intake Total 1486.223 851.626 96 Output Total 127 80 25 Balance 1359.223 771.626 71 Weight 59.3 kg Intake: IV 685 312 26 .9NS Pressure Bag 75 72 6 Piperacillin-Tazobactam 3 100 .375 gm In Sodium Chloride 0.9% 100 ml @ 25 mls/hr IVPB Q12HR [facility] Rx #:[id number] Sodium Chloride 0.9% 500 260 240 20 ml 500 ml @ 20 mls/hr IV .Q24H [facility] Rx#:[id number] Vancomycin 1,000 mg In 250 Sodium Chloride 0.9% 250 ml @ 125 mls/hr IVPB ONCE ONE Rx#:[id number] Intake, IV Titration 311.223 59.626 Amount Amiodarone 450 mg In 250 Dextrose 5% in Water 250 ml @ 0.5 MG/MIN 16.667 mls/hr IV .Q15H [facility] Rx#: [id number] Norepinephrine 8 mg In 19.841 Sodium Chloride 0.9% 250 ml @ 0.03 MCG/KG/MIN 3. 106 mls/hr IV .Q24H [facility] Rx#:[id number] propofoL 1,000 mg In 41.382 59.626 Empty Bag 1 bag @ 15 MCG/ KG/MIN 4.815 mls/hr IV . [id number] [facility] Rx#:[id number] Tube Feeding 400 480 40 Other 90 30 Output: Urine 127 80 25 Other: Voiding Method Indwelling Catheter Indwelling Catheter # Bowel Movements 1 1 ABP, PAP, CO, CI - Last Documented Arterial Blood Pressure 102/45 - Exam GENERAL EXAM: Intubated, sedated, 63-year-old female, on the ventilator, in no apparent distress. HEAD: Normocephalic. EYES: Normal reaction of pupils, equal size. NOSE: Clear with pink turbinates. THROAT: Oral endotracheal and gastric tube secured in place. No erythema or exudates. NECK: No masses, no JVD. CHEST: No chest wall deformity. LUNGS: Equal air entry with no crackles, wheeze, rhonchi or dullness. CVS: S1 and S2 normal with no audible murmur, regular rhythm. ABDOMEN: No hepatosplenomegaly, normal bowel sounds, no guarding or rigidity. SPINE: No scoliosis or deformity SKIN: No rashes CENTRAL NERVOUS SYSTEM: No focal deficits, tone is normal in all 4 extremities. EXTREMITIES: There is no peripheral edema. No clubbing, no cyanosis. Peripheral pulses are intact. - Labs CBC & Chem 7: 08/30/24 05:25 08/30/24 05:25 Labs: Abnormal Lab Results - Last 24 Hours (Table) 08/29/24 08/29/24 08/30/24 Range/Units 12:36 17:28 00:30 WBC (3.8-10.6) k/uL RBC (3.80-5.40) m/uL Hgb (11.4-16.0) gm/dL Hct (34.0-46.0) % RDW (11.5-15.5) % Plt Count (150-450) k/uL Lymphocytes # (1.0-4.8) k/uL ABG pH (7.35-7.45) ABG pCO2 (35-45) mmHg ABG pO2 (83-108) mmHg ABG Total CO2 (19-24) mmol/L ABG O2 Saturation (94-97) % Hemoglobin (11.4-16.0) gm/dL Sodium (137-145) mmol/L Potassium (3.5-5.1) mmol/L Chloride (98-107) mmol/L Carbon Dioxide (22-30) mmol/L BUN (7-17) mg/dL Creatinine (0.52-1.04) mg/dL Glucose (74-99) mg/dL POC Glucose (mg/dL) 126 H 156 H 147 H (70-110) mg/dL 08/30/24 08/30/24 08/30/24 Range/Units 05:08 05:24 05:25 WBC (3.8-10.6) k/uL RBC (3.80-5.40) m/uL Hgb (11.4-16.0) gm/dL Hct (34.0-46.0) % RDW (11.5-15.5) % Plt Count (150-450) k/uL Lymphocytes # (1.0-4.8) k/uL ABG pH 7.26 L (7.35-7.45) ABG pCO2 51 H (35-45) mmHg ABG pO2 78 L (83-108) mmHg ABG Total CO2 25 H (19-24) mmol/L ABG O2 Saturation 93.4 L (94-97) % Hemoglobin 7.9 L (11.4-16.0) gm/dL Sodium 130 L (137-145) mmol/L Potassium 5.9 H (3.5-5.1) mmol/L Chloride 93 L (98-107) mmol/L Carbon Dioxide 19 L (22-30) mmol/L BUN 119 H* (7-17) mg/dL Creatinine 3.83 H (0.52-1.04) mg/dL Glucose 158 H (74-99) mg/dL POC Glucose (mg/dL) 165 H (70-110) mg/dL 08/30/24 Range/Units 05:25 WBC 3.7 L (3.8-10.6) k/uL RBC 2.84 L (3.80-5.40) m/uL Hgb 8.2 L (11.4-16.0) gm/dL Hct 25.3 L (34.0-46.0) % RDW 19.9 H (11.5-15.5) % Plt Count 143 L (150-450) k/uL Lymphocytes # 0.2 L (1.0-4.8) k/uL ABG pH (7.35-7.45) ABG pCO2 (35-45) mmHg ABG pO2 (83-108) mmHg ABG Total CO2 (19-24) mmol/L ABG O2 Saturation (94-97) % Hemoglobin (11.4-16.0) gm/dL Sodium (137-145) mmol/L Potassium (3.5-5.1) mmol/L Chloride (98-107) mmol/L Carbon Dioxide (22-30) mmol/L BUN (7-17) mg/dL Creatinine (0.52-1.04) mg/dL Glucose (74-99) mg/dL POC Glucose (mg/dL) (70-110) mg/dL Microbiology - Last 24 Hours (Table) 08/26/24 10:57 Blood Culture - Preliminary Blood 08/28/24 11:40 Nasal Screen MRSA/MSSA - Final Nasal Swab Assessment and Plan Plan: Acute hypoxemic respiratory failure suspect secondary to an acute exacerbation of chronic obstructive pulmonary disease and acute exacerbation of chronic systolic congestive heart failure, CoVID infection. CAT scan of the chest was completed on 08/28/2024 and the findings are consistent with COVID-19 related pneumonia and the patient had patchy areas of consolidation in the lung bases left more than right suggestive of a bacterial infection based on that the patient was started on a combination of Zosyn and vancomycin. The patient remains on steroids. The blood gas from this morning shows a component of metabolic and respiratory acidosis. Appropriate ventilator adjustments to be done and the patient is going to undergo hemodialysis. Not ready for weaning or extubation yet. Low-grade fever Hypotension, currently off pressors COVID-19 infection and possible COVID-pneumonia, currently on Decadron History of multiple myeloma receiving treatment as recently as July 2024, and the patient has been maintained on Revlimid that was started on 06/12/2024 with daratumumab, completed total of 3 cycles and the Velcade being held since 08/03/2024 due to cytopenias. CHF with mild impairment of LV function with an ejection fraction of 40 to 45% and RV dilatation with moderate to severe pulm hypertension with a PA pressure estimated to be at the 56 based on echocardiogram that was done on 08/24/2024. Right upper lobe 1.7 cm spiculated lesion, PET positive History of chronic tobacco dependence Hypertension End-stage renal disease receiving hemodialysis, maintained on hemodialysis on Tuesday and Saturdays via permacath. Last hemodialysis was performed on 08/27/2024 Hypothyroidism Leg pain initially causing this admission on 08/21/2024, the patient has history of chronic right hip pain and pain in the groin radiating to the right lower extremity and lateral hip. Right femur/hip and pelvic x-ray showed moderate degenerative changes. Bone scan on 08/09/2024 showed no hip fracture and no abnormal uptake to suggest any other abnormalities Such as osseous metastases. Anemia of chronic disease in addition to multiple myeloma, hemoglobin is at 7.3 and the patient received a unit of packed RBC. Plan: Continue vent support, increase the tidal volume to 500 Hemodialysis today Obtain a follow-up blood gas post hemodialysis CAT scan of the chest, no contrast, was noted and the patient is currently on broad-spectrum antibiotics in combination with Decadron. Continue combination of Zosyn and vancomycin Continue Decadron Continue amiodarone 400 mg p.o. twice a day Continue metoprolol 25 mg twice daily Transfused with a unit of packed RBC on 08/28/2024 Keep the patient sedated on propofol, sedation holiday was given a 08/29/2024 with appropriate arousal Continue vital HP for nourishment Hemodialysis per nephrology, will need hemodialysis today Not ready for weaning or extubation yet Will continue to follow. Condition remains critical. Critical care evaluation , done in >30 min Time with Patient: Greater than 30
[2024-08-30 17:51] LABS: Glucose,Whole Blood 201 mg/dL (70-110)
[2024-08-31 00:23] LABS: Glucose,Whole Blood 135 mg/dL (70-110)
[2024-08-31 05:40] LABS: ABG Base Excess 0.8 mmol/L; ABG HCO3 26 mmol/L (21-25); ABG Oxygen Saturation 94.5 % (94-97); ABG PCO2 45 mmHg (35-45); ABG PH 7.37 (7.35-7.45); ABG PO2 74 mmHg (83-108); ABG TCO2 28 mmol/L (19-24)
[2024-08-31 05:41] LABS: Allen Test Performed? no
[2024-08-31 06:39] LABS: Glucose,Whole Blood 147 mg/dL (70-110)
[2024-08-31 06:40] LABS: Anisocytosis Slight; Basophils % (A) 0 %; Eosinophils % (A) 1 %; HCT 23.8 % (34.0-46.0); HGB 7.7 gm/dL (11.4-16.0); Hypochromasia Moderate; Lymphocytes # (A) 0.1 k/uL (1.0-4.8); Lymphocytes % (A) 7 %; MCH 28.8 pg (25.0-35.0); MCHC 32.2 g/dL (31.0-37.0); MCV 89.4 fL (80.0-100.0); Mean Platelet Volume 9.1; Monocytes # (A) 0.1 k/uL (0-1.0); Monocytes % (A) 6 %; Neutrophils # (A) 1.5 k/uL (1.3-7.7); Neutrophils % (A) 86 %; Platelet Count 106 k/uL (150-450); RBC 2.66 m/uL (3.80-5.40); RDW 19.9 % (11.5-15.5); WBC 1.7 k/uL (3.8-10.6)
[2024-08-31 06:56] LABS: ALT 63 U/L (4-34); AST 34 U/L (14-36); Albumin 2.3 g/dL (3.5-5.0); Alkaline Phosphatase 104 U/L (38-126); Anion Gap 12 mmol/L; Blood Urea Nitrogen 90 mg/dL (7-17); Calcium 8.1 mg/dL (8.4-10.2); Carbon Dioxide 25 mmol/L (22-30); Chloride 96 mmol/L (98-107); Glucose 139 mg/dL (74-99); Potassium 4.7 mmol/L (3.5-5.1); Sodium 133 mmol/L (137-145); Total Bilirubin 0.6 mg/dL (0.2-1.3); Total Protein 5.7 g/dL (6.3-8.2)
[2024-08-31 07:01] LABS: African American GFR (CKD) 21 (>60 ml/min/1.73 sqM); Non-African American GFR(CKD) 18 (>60 ml/min/1.73 sqM)
[2024-08-31 07:18] LABS: Vancomycin,Random 18.6 ug/mL
--- NOTE | 2024-08-31 08:01 | P.PN ---
Subjective PROGRESS NOTE The patient is a 63-year-old female who was admitted with symptoms of progressive dyspnea, significant right groin discomfort, has a history of multiple myeloma, end-stage renal disease, lung nodules and evidence of malignancy. On presentation she was in atrial flutter with rapid ventricular response. Yesterday she became more dyspneic requiring mechanical ventilation and was transferred to the ICU. She is intubated and sedated at this time. She was in sinus mechanism for a period of time but she is in atrial fibrillation at this point. There is no evidence of ventricular ectopic activity. In the past her echocardiogram showed a preserved systolic function with mild mitral and mild to moderate tricuspid regurgitation and moderate pulmonary hypertension. August 25: The patient remains intubated and sedated, receiving dialysis today. She is off of IV Cardizem because of pauses. She continues to be in atrial fibrillation with overall controlled ventricular response. She continues to be on norepinephrine. The plan is to continue intubation today and attempt weaning tomorrow. Echocardiogram showed an ejection fraction of 40 to 45% with mild to moderate tricuspid regurgitation August 26: She remains intubated and sedated, in sinus mechanism with frequent PACs. She continues to be on norepinephrine, there is no evidence of ventricular tachycardia. She has been receiving hemodialysis. Continues to be on m etoprolol tartrate, tolerating the treatment, off IV Cardizem 08/27 Patient remains intubated and sedated. Currently on 50% FiO2. Low-dose norepinephrine. He remains in sinus rhythm with PACs. Remains sedated on propofol. Hemoglobin down to 6.7 however no active source of bleeding per nursing. She has not been on any anticoagulation. 08/28 Patient with continued anemia 6.6. No significant source of bleeding. She did require increasing vasopressors and vasopressin is added and norepinephrine slightly increased. She did have more tachycardia and therefore Cardizem drip was switched to amiodarone drip. Remains on FiO2 50% on the ventilator. Underwent HD yesterday. 08/29 Patient converted to normal sinus rhythm. Has been weaned off of vasopressors. Plan for hemodialysis tomorrow. On oral amiodarone. 08/30 Patient seen and examined. Remains on ventilator with FiO2 50% and PEEP of 6. Off of any days of pressors. Remains in normal sinus rhythm. 08/31 Patient has been in and out of A. fib and was in A. fib yesterday however converted back to sinus rhythm at approximately 3 AM. Heart rates in the low 100s. Underwent hemodialysis with 350 mL take it off yesterday. Remains on ventilator sedated. Gen: ill appearing LUNGS: Clear anteriorly HEART: Regular rate and rhythm, with extrasystole S1, S2. No S3. Systolic ejection murmur ABDOMEN: Soft, positive bowel sounds, no organomegaly EXTREMETIES: No edema, right inguinal mass IMPRESSION: 1. Acute respiratory failure with a combination of COVID infection, history of COPD and lung mass 2. Multiple myeloma 3. Paroxysmal atrial fibrillation and atrial flutter, off IV Cardizem because pauses. Not anticoagulated because of severe anemia, back in sinus mechanism with multiple PACs. 4. Anemia most likely related to the multiple myeloma 5. End-stage renal disease on hemodialysis 6. Prior history of hypertension 7. Right groin mass could be related to her malignancy PLAN: Continue with oral amiodarone. She is in and out of A. fib however predominantly controlled. No anticoagulation given continued anemia. Hemodialysis per nephrology Objective - Vital Signs Vital signs: Vital Signs Temp 98.5 F 08/31/24 04:00 Pulse 107 H 08/31/24 07:00 Resp 22 08/31/24 07:00 BP 126/65 08/31/24 07:00 Pulse Ox 92 L 08/31/24 07:00 FiO2 50 08/31/24 04:00 Intake & Output 08/30/24 08/31/24 08/31/24 18:59 06:59 18:59 Intake Total 1841.863 630.531 46 Output Total 1045 28 0 Balance 796.863 602.531 46 Weight 59.3 kg 60.7 kg Intake: IV 186 66 6 .9NS Pressure Bag 66 66 6 Sodium Chloride 0.9% 500 120 ml 500 ml @ 20 mls/hr IV .Q24H [facility] Rx#:[id number] Intake, IV Titration 195.863 114.531 Amount Norepinephrine 8 mg In 16.495 37.892 Sodium Chloride 0.9% 250 ml @ 0.03 MCG/KG/MIN 3. 106 mls/hr IV .Q24H [facility] Rx#:[id number] Sodium Chloride 0.9% 500 100 ml 500 ml @ 20 mls/hr IV .Q24H [facility] Rx#:[id number] propofoL 1,000 mg In 79.368 76.639 Empty Bag 1 bag @ 15 MCG/ KG/MIN 4.815 mls/hr IV . [id number] [facility] Rx#:[id number] Tube Feeding 400 360 40 Hemodialysis 1000 Other 60 90 Output: Urine 45 28 0 Hemodialysis 650 Hemodialysis Net Amount 350 Other: Voiding Method Indwelling Catheter Indwelling Catheter # Bowel Movements 1 1 1 ABP, PAP, CO, CI - Last Documented Arterial Blood Pressure 127/69 - Labs CBC & Chem 7: 08/31/24 06:26 08/31/24 06:26 Labs: Abnormal Lab Results - Last 24 Hours (Table) 08/30/24 08/30/24 08/30/24 Range/Units 11:24 13:31 17:50 WBC (3.8-10.6) k/uL RBC (3.80-5.40) m/uL Hgb (11.4-16.0) gm/dL Hct (34.0-46.0) % RDW (11.5-15.5) % Plt Count (150-450) k/uL Lymphocytes # (1.0-4.8) k/uL ABG pCO2 51 H (35-45) mmHg ABG pO2 140 H (83-108) mmHg ABG HCO3 28 H (21-25) mmol/L ABG Total CO2 30 H (19-24) mmol/L ABG O2 Saturation 99.2 H (94-97) % Hemoglobin 7.9 L (11.4-16.0) gm/dL Sodium (137-145) mmol/L Chloride (98-107) mmol/L BUN (7-17) mg/dL Creatinine (0.52-1.04) mg/dL Glucose (74-99) mg/dL POC Glucose (mg/dL) 135 H 201 H (70-110) mg/dL Calcium (8.4-10.2) mg/dL ALT (4-34) U/L Total Protein (6.3-8.2) g/dL Albumin (3.5-5.0) g/dL 08/31/24 08/31/24 08/31/24 Range/Units 00:22 05:37 06:26 WBC 1.7 L (3.8-10.6) k/uL RBC 2.66 L (3.80-5.40) m/uL Hgb 7.7 L (11.4-16.0) gm/dL Hct 23.8 L (34.0-46.0) % RDW 19.9 H (11.5-15.5) % Plt Count 106 L (150-450) k/uL Lymphocytes # 0.1 L (1.0-4.8) k/uL ABG pCO2 (35-45) mmHg ABG pO2 74 L (83-108) mmHg ABG HCO3 26 H (21-25) mmol/L ABG Total CO2 28 H (19-24) mmol/L ABG O2 Saturation (94-97) % Hemoglobin 7.5 L (11.4-16.0) gm/dL Sodium (137-145) mmol/L Chloride (98-107) mmol/L BUN (7-17) mg/dL Creatinine (0.52-1.04) mg/dL Glucose (74-99) mg/dL POC Glucose (mg/dL) 135 H (70-110) mg/dL Calcium (8.4-10.2) mg/dL ALT (4-34) U/L Total Protein (6.3-8.2) g/dL Albumin (3.5-5.0) g/dL 08/31/24 08/31/24 Range/Units 06:26 06:37 WBC (3.8-10.6) k/uL RBC (3.80-5.40) m/uL Hgb (11.4-16.0) gm/dL Hct (34.0-46.0) % RDW (11.5-15.5) % Plt Count (150-450) k/uL Lymphocytes # (1.0-4.8) k/uL ABG pCO2 (35-45) mmHg ABG pO2 (83-108) mmHg ABG HCO3 (21-25) mmol/L ABG Total CO2 (19-24) mmol/L ABG O2 Saturation (94-97) % Hemoglobin (11.4-16.0) gm/dL Sodium 133 L (137-145) mmol/L Chloride 96 L (98-107) mmol/L BUN 90 H (7-17) mg/dL Creatinine 2.65 H (0.52-1.04) mg/dL Glucose 139 H (74-99) mg/dL POC Glucose (mg/dL) 147 H (70-110) mg/dL Calcium 8.1 L (8.4-10.2) mg/dL ALT 63 H (4-34) U/L Total Protein 5.7 L (6.3-8.2) g/dL Albumin 2.3 L (3.5-5.0) g/dL Microbiology - Last 24 Hours (Table) 08/25/24 12:50 Blood Culture - Final Blood
--- NOTE | 2024-08-31 08:02 | XR ---
EXAMINATION TYPE: XR chest 1V portable DATE OF EXAM: 08/31/2024 5:39 AM COMPARISON: 08/30/2024 CLINICAL INDICATION: Female, 64 years old with history of mechanical ventilation, , FINDINGS: ET and NG tube are satisfactory. Heart remains mildly enlarged. Left CVC tip lower SVC. Right-sided d ouble-lumen hemodialysis catheter remains mid SVC. Diffuse interstitial and bilateral patchy opacitie s persist without significant change. Known spiculated nodule right upper lobe. Hyperinflation. IMPRESSION: Overall stable exam with COPD and superimposed diffuse interstitial and multifocal patchy opacities. Known spiculated right upper lobe nodule. [facility] Chantel Pleitez, Workstation: [id number], 08/31/2024 7:59 AM
--- NOTE | 2024-08-31 08:33 | P.PN ---
Subjective Principal diagnosis: Respiratory failure with COVID lung mass and multiple myeloma The patient is seen for follow-up 64-year-old white female with end-stage renal disease multiple myeloma and acute respiratory failure still intubated. Multiple consultants including cardiology pulmonology and nephrology. Element of COVID-pneumonia as well. Objective - Vital Signs Vital signs: Vital Signs Temp 98.5 F 08/31/24 04:00 Pulse 107 H 08/31/24 07:00 Resp 22 08/31/24 07:00 BP 126/65 08/31/24 07:00 Pulse Ox 92 L 08/31/24 07:00 FiO2 50 08/31/24 08:03 Intake & Output 08/30/24 08/31/24 08/31/24 18:59 06:59 18:59 Intake Total 1841.863 630.531 142 Output Total 1045 28 10 Balance 796.863 602.531 132 Weight 59.3 kg 60.7 kg Intake: IV 186 66 32 .9NS Pressure Bag 66 66 12 Sodium Chloride 0.9% 500 120 20 ml 500 ml @ 20 mls/hr IV .Q24H [facility] Rx#:[id number] Intake, IV Titration 195.863 114.531 Amount Norepinephrine 8 mg In 16.495 37.892 Sodium Chloride 0.9% 250 ml @ 0.03 MCG/KG/MIN 3. 106 mls/hr IV .Q24H [facility] Rx#:[id number] Sodium Chloride 0.9% 500 100 ml 500 ml @ 20 mls/hr IV .Q24H [facility] Rx#:[id number] propofoL 1,000 mg In 79.368 76.639 Empty Bag 1 bag @ 15 MCG/ KG/MIN 4.815 mls/hr IV . [id number] [facility] Rx#:[id number] Tube Feeding 400 360 80 Hemodialysis 1000 Other 60 90 30 Output: Urine 45 28 10 Hemodialysis 650 Hemodialysis Net Amount 350 Other: Voiding Method Indwelling Catheter Indwelling Catheter # Bowel Movements 1 1 1 ABP, PAP, CO, CI - Last Documented Arterial Blood Pressure 127/69 - Constitutional General appearance: Present: thin - EENT Eyes: Absent: abnormal pupil - Neck Neck: Absent: lymphadenopathy - Respiratory Respiratory: bilateral: diminished - Cardiovascular Rhythm: irregularly irregular Heart sounds: normal: S1, S2 Abnormal Heart Sounds: Absent: S3 Gallop - Gastrointestinal General gastrointestinal: Present: soft. Absent: tenderness - Integumentary Integumentary: Absent: cellulitis - Labs CBC & Chem 7: 08/31/24 06:26 08/31/24 06:26 Labs: Abnormal Lab Results - Last 24 Hours (Table) 08/30/24 08/30/24 08/30/24 Range/Units 11:24 13:31 17:50 WBC (3.8-10.6) k/uL RBC (3.80-5.40) m/uL Hgb (11.4-16.0) gm/dL Hct (34.0-46.0) % RDW (11.5-15.5) % Plt Count (150-450) k/uL Lymphocytes # (1.0-4.8) k/uL ABG pCO2 51 H (35-45) mmHg ABG pO2 140 H (83-108) mmHg ABG HCO3 28 H (21-25) mmol/L ABG Total CO2 30 H (19-24) mmol/L ABG O2 Saturation 99.2 H (94-97) % Hemoglobin 7.9 L (11.4-16.0) gm/dL Sodium (137-145) mmol/L Chloride (98-107) mmol/L BUN (7-17) mg/dL Creatinine (0.52-1.04) mg/dL Glucose (74-99) mg/dL POC Glucose (mg/dL) 135 H 201 H (70-110) mg/dL Calcium (8.4-10.2) mg/dL ALT (4-34) U/L Total Protein (6.3-8.2) g/dL Albumin (3.5-5.0) g/dL 08/31/24 08/31/24 08/31/24 Range/Units 00:22 05:37 06:26 WBC 1.7 L (3.8-10.6) k/uL RBC 2.66 L (3.80-5.40) m/uL Hgb 7.7 L (11.4-16.0) gm/dL Hct 23.8 L (34.0-46.0) % RDW 19.9 H (11.5-15.5) % Plt Count 106 L (150-450) k/uL Lymphocytes # 0.1 L (1.0-4.8) k/uL ABG pCO2 (35-45) mmHg ABG pO2 74 L (83-108) mmHg ABG HCO3 26 H (21-25) mmol/L ABG Total CO2 28 H (19-24) mmol/L ABG O2 Saturation (94-97) % Hemoglobin 7.5 L (11.4-16.0) gm/dL Sodium (137-145) mmol/L Chloride (98-107) mmol/L BUN (7-17) mg/dL Creatinine (0.52-1.04) mg/dL Glucose (74-99) mg/dL POC Glucose (mg/dL) 135 H (70-110) mg/dL Calcium (8.4-10.2) mg/dL ALT (4-34) U/L Total Protein (6.3-8.2) g/dL Albumin (3.5-5.0) g/dL 08/31/24 08/31/24 Range/Units 06:26 06:37 WBC (3.8-10.6) k/uL RBC (3.80-5.40) m/uL Hgb (11.4-16.0) gm/dL Hct (34.0-46.0) % RDW (11.5-15.5) % Plt Count (150-450) k/uL Lymphocytes # (1.0-4.8) k/uL ABG pCO2 (35-45) mmHg ABG pO2 (83-108) mmHg ABG HCO3 (21-25) mmol/L ABG Total CO2 (19-24) mmol/L ABG O2 Saturation (94-97) % Hemoglobin (11.4-16.0) gm/dL Sodium 133 L (137-145) mmol/L Chloride 96 L (98-107) mmol/L BUN 90 H (7-17) mg/dL Creatinine 2.65 H (0.52-1.04) mg/dL Glucose 139 H (74-99) mg/dL POC Glucose (mg/dL) 147 H (70-110) mg/dL Calcium 8.1 L (8.4-10.2) mg/dL ALT 63 H (4-34) U/L Total Protein 5.7 L (6.3-8.2) g/dL Albumin 2.3 L (3.5-5.0) g/dL Microbiology - Last 24 Hours (Table) 08/25/24 12:50 Blood Culture - Final Blood Assessment and Plan (1) COPD (chronic obstructive pulmonary disease) Current Visit: Yes Status: Acute Code(s): J44.9 - CHRONIC OBSTRUCTIVE PULMON SUE DISEASE, UNSPECIFIED SNOMED Code(s): 51943806 (2) End stage renal disease Current Visit: Yes Status: Acute Priority: High Code(s): N18.6 - END STAGE RENAL DISEASE SNOMED Code(s): 53410818 (3) Intractable pain Current Visit: Yes Status: Acute Priority: High Code(s): R52 - PAIN, UNSPECIFIED SNOMED Code(s): 53259680 (4) Multiple myeloma Current Visit: Yes Status: Acute Priority: High Code(s): C90.00 - MULTIPLE MYELOMA NOT HAVING ACHIEVED REMISSION SNOMED Code(s): 137316113 (5) Right hip pain Current Visit: Yes Status: Acute Code(s): M25.551 - PAIN IN RIGHT HIP SNOMED Code(s): 02561006 Plan: Appreciate multiple consultants input. Dialysis treatment per nephrology. Holding off of chemotherapy for multiple myeloma at this time. Transferred to the ICU due to acute respiratory failure. COVID. Continue ventilatory and cardiac support. Check labs x-ray and ABG per critical care.
--- NOTE | 2024-08-31 10:21 | P.PN ---
Subjective Patient is seen for follow-up for end-stage renal disease. Patient remains on the vent. FiO2 at 50%. Status post dialysis yesterday with net UF of 350 mL Patient remains on low-dose Levophed. Objective - Vital Signs Vital signs: Vital Signs Temp 98.5 F 08/31/24 04:00 Pulse 94 08/31/24 10:00 Resp 27 H 08/31/24 10:00 BP 110/58 08/31/24 09:15 Pulse Ox 92 L 08/31/24 10:00 FiO2 50 08/31/24 10:00 Intake & Output 08/30/24 08/31/24 08/31/24 18:59 06:59 18:59 Intake Total 1841.863 630.531 324.959 Output Total 1045 28 20 Balance 796.863 602.531 304.959 Weight 59.3 kg 60.7 kg 60.7 kg Intake: IV 186 66 84 .9NS Pressure Bag 66 66 24 Sodium Chloride 0.9% 500 120 60 ml 500 ml @ 20 mls/hr IV .Q24H [facility] Rx#:[id number] Intake, IV Titration 195.863 114.531 50.959 Amount Norepinephrine 8 mg In 16.495 37.892 Sodium Chloride 0.9% 250 ml @ 0.03 MCG/KG/MIN 3. 106 mls/hr IV .Q24H [facility] Rx#:[id number] Sodium Chloride 0.9% 500 100 ml 500 ml @ 20 mls/hr IV .Q24H [facility] Rx#:[id number] propofoL 1,000 mg In 79.368 76.639 50.959 Empty Bag 1 bag @ 15 MCG/ KG/MIN 4.815 mls/hr IV . [id number] [facility] Rx#:[id number] Tube Feeding 400 360 160 Hemodialysis 1000 Other 60 90 30 Output: Urine 45 28 20 Hemodialysis 650 Hemodialysis Net Amount 350 Other: Voiding Method Indwelling Catheter Indwelling Catheter # Bowel Movements 1 1 1 ABP, PAP, CO, CI - Last Documented Arterial Blood Pressure 101/49 - Exam Patient is sedated and intubated Examination of the heart S1 and S2 Examination of the lungs bilateral breath sounds are heard Abdomen is soft nontender No edema noted in the lower extremities - Labs CBC & Chem 7: 08/31/24 06:26 08/31/24 06:26 Labs: Abnormal Lab Results - Last 24 Hours (Table) 08/30/24 08/30/24 08/30/24 Range/Units 11:24 13:31 17:50 WBC (3.8-10.6) k/uL RBC (3.80-5.40) m/uL Hgb (11.4-16.0) gm/dL Hct (34.0-46.0) % RDW (11.5-15.5) % Plt Count (150-450) k/uL Lymphocytes # (1.0-4.8) k/uL ABG pCO2 51 H (35-45) mmHg ABG pO2 140 H (83-108) mmHg ABG HCO3 28 H (21-25) mmol/L ABG Total CO2 30 H (19-24) mmol/L ABG O2 Saturation 99.2 H (94-97) % Hemoglobin 7.9 L (11.4-16.0) gm/dL Sodium (137-145) mmol/L Chloride (98-107) mmol/L BUN (7-17) mg/dL Creatinine (0.52-1.04) mg/dL Glucose (74-99) mg/dL POC Glucose (mg/dL) 135 H 201 H (70-110) mg/dL Calcium (8.4-10.2) mg/dL ALT (4-34) U/L Total Protein (6.3-8.2) g/dL Albumin (3.5-5.0) g/dL 08/31/24 08/31/24 08/31/24 Range/Units 00:22 05:37 06:26 WBC 1.7 L (3.8-10.6) k/uL RBC 2.66 L (3.80-5.40) m/uL Hgb 7.7 L (11.4-16.0) gm/dL Hct 23.8 L (34.0-46.0) % RDW 19.9 H (11.5-15.5) % Plt Count 106 L (150-450) k/uL Lymphocytes # 0.1 L (1.0-4.8) k/uL ABG pCO2 (35-45) mmHg ABG pO2 74 L (83-108) mmHg ABG HCO3 26 H (21-25) mmol/L ABG Total CO2 28 H (19-24) mmol/L ABG O2 Saturation (94-97) % Hemoglobin 7.5 L (11.4-16.0) gm/dL Sodium (137-145) mmol/L Chloride (98-107) mmol/L BUN (7-17) mg/dL Creatinine (0.52-1.04) mg/dL Glucose (74-99) mg/dL POC Glucose (mg/dL) 135 H (70-110) mg/dL Calcium (8.4-10.2) mg/dL ALT (4-34) U/L Total Protein (6.3-8.2) g/dL Albumin (3.5-5.0) g/dL 08/31/24 08/31/24 Range/Units 06:26 06:37 WBC (3.8-10.6) k/uL RBC (3.80-5.40) m/uL Hgb (11.4-16.0) gm/dL Hct (34.0-46.0) % RDW (11.5-15.5) % Plt Count (150-450) k/uL Lymphocytes # (1.0-4.8) k/uL ABG pCO2 (35-45) mmHg ABG pO2 (83-108) mmHg ABG HCO3 (21-25) mmol/L ABG Total CO2 (19-24) mmol/L ABG O2 Saturation (94-97) % Hemoglobin (11.4-16.0) gm/dL Sodium 133 L (137-145) mmol/L Chloride 96 L (98-107) mmol/L BUN 90 H (7-17) mg/dL Creatinine 2.65 H (0.52-1.04) mg/dL Glucose 139 H (74-99) mg/dL POC Glucose (mg/dL) 147 H (70-110) mg/dL Calcium 8.1 L (8.4-10.2) mg/dL ALT 63 H (4-34) U/L Total Protein 5.7 L (6.3-8.2) g/dL Albumin 2.3 L (3.5-5.0) g/dL Microbiology - Last 24 Hours (Table) 08/25/24 12:50 Blood Culture - Final Blood Assessment and Plan Assessment: 1. End-stage renal disease on hemodialysis via right IJ permacath. 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 2. Right leg pain with soft tissue mass identified near the hip area. Status post pelvic CT which suggests an enlarged lymph node 3. Anemia, multifactorial associated with underlying multiple myeloma, chemotherapy and renal failure 4. Pulmonary nodule/mass 5. Volume overload 6. Acute hypoxic respiratory failure secondary to COVID pneumonia 7. A-fib with RVR 8. Hyperkalemia improved with dialysis. Plan: Hemodialysis in a.m. Minimal UF
[2024-08-31] MEDS: METOCLOPRAMIDE 5 MG/ML 2 ML VIAL IVP SCH (11:03)
[2024-08-31] MEDS: VANCOMYCIN 1,000 MG in SODIUM CHLORIDE 0.9% 250 ML IVPB ONE (11:04)
[2024-08-31 11:11] LABS: Glucose,Whole Blood 150 mg/dL (70-110)
--- NOTE | 2024-08-31 14:03 | P.PN ---
Subjective Progress Note Date: 08/31/24 This is a 63-year-old female patient with a known history of multiple myeloma receiving chemotherapy recently, suspected lung cancer with a PET positive right upper lobe 1.7 cm spiculated nodule, chronic obstructive pulmonary disease, chronic tobacco dependence, hypertension, hypothyroidism, end-stage renal disease receiving hemodialysis. She was admitted here on 08/21/2024 with complaints of right lower extremity pain. Been undergoing evaluation. Today on August 23, 2024 she had rapid response called on her twice for increasing shortness of breath and hypoxemia. She was subsequently transferred to the intensive care unit. She was placed on BiPAP 07/27 and 100% FiO2. She continued to do poorly and was subsequently intubated and placed on the mechanical ventilator. Currently on assist-control mode at a rate of 20, tidal volume 350, FiO2 100% and a PEEP of 5. She did undergo a left subclavian triple-lumen catheter placement and a right radial arterial line placement. Chest x-ray revealed satisfactory positions of the lines. Subtle scattered opacities may represent atypical pneumonia. Finding out today she is positive for COVID-19. Arterial blood gases post intubation revealed a PaO2 greater than 420, pCO2 of 60 and a pH of 7.28. FiO2 will be decreased accordingly. White count 8.5. Hemoglobin 8.7. Platelets 404. Sodium 129. Potassium 5.7. Bicarb 24. BUN 57. Creatinine 5.92. Glucose 82. She is sedated on propofol at 15 mcg/kg/min. The patient is seen today August 24, 2024 in follow-up in the intensive care unit. She remains intubated on the mechanical ventilator and assist-control mode at a rate of 20, tidal volume 350, FiO2 50% and a PEEP of 5. Morning blood gases revealed a PaO2 of 99. pCO2 48. pH 7.35. She is still requiring norepinephrine at 7 mcg/min. Cardizem drip at 5 mg an hour. Propofol at 40 mcg/kg/min. Lactated Ringer's at 100 mL/h. She is being nourished with vital HP at 10 mL/h with a goal of 46 mL/h. She remains on Symbicort, albuterol, Decadron. She is on Lovenox for DVT prophylaxis. Protonix for GI prophylaxis. Blood cultures now showing gram-positive cocci in clusters. Sputum culture pending. Vancomycin will be given x 1 until further cultures result. White count 6.6. Hemoglobin 7.0. Platelets 352. Sodium 132. Potassium 4.8. Bicarb 25. BUN 32. Creatinine 3.32. Glucose 108. The patient is seen today August 25, 2024 in follow-up in the intensive care unit. She remains intubated on the mechanical ventilator currently in settings of assist-control mode at a rate of 20, tidal volume 350, FiO2 50% and a PEEP of 5. Morning blood gases revealed a PaO2 of 91. pCO2 of 53 and a pH of 7.28. Chest x-ray reveals chronic and for somatic changes with mild cardiomegaly and patchy bilateral multifocal edema. No significant change. She remains on norepinephrine at 4 mcg/min. Cardizem drip is off. She was having sinus pauses yesterday. She has issues with intermittent atrial flutter. She is sedated on propofol at 40 mcg/kg/min. Lactated Ringer's at KVO. She is being nourished with vital HP at 10 mL/h. He received vancomycin x 1 for Staphylococcus epidermidis blood culture. Sputum culture revealed no growth. White count 12.9. Hemoglobin 7.5. Platelets 423. Sodium 133. Potassium 5.0. Bicarb 21. BUN 58. Creatinine 4.48. Glucose 134. She remains on Symbicort, albuterol, Decadron. Lovenox for DVT prophylaxis. Protonix for GI prophylaxis. The patient is seen today August 26, 2024 in follow-up in the intensive care unit. She remains intubated on mechanical ventilator and assist-control mode with a rate of 20, tidal valve 350, FiO2 50% and a PEEP of 5. Morning blood gases revealed a PaO2 of 90. pCO2 57 and a pH of 7.28. She did receive hemodialysis with 500 mL of fluid removed yesterday. She remains on norepinephrine at 1.7 mcg/min. Propofol at 50 mcg/kg/min. Lactated Ringer's at KVO. Vital HP at 10 mL an hour with a goal of 46 mL/h. She is continued with high residuals. May need Reglan if no improvement. She remains on albuterol, Symbicort, Decadron. Lovenox for DVT prophylaxis. Show chronic and for somatic changes and mild cardiomegaly with small to tiny left pleural effusion and patchy bilateral multifocal edema and/or acute infiltrates. No significant change. Blood culture was positive for Staphylococcus epidermidis. Sputum culture revealed no growth. White count 13.3. Hemoglobin 7.5. Platelets 364. Sodium 133. Potassium 5.1. Bicarb 24. BUN 41. Creatinine 2.91. Glucose 137. Currently in a +250 mL balance. On 08/27/2024, this patient is being seen for a follow-up. The patient remains intubated on the mechanical ventilator due to a combination of COPD and CHF exacerbation and COVID-19 infection. Noted the patient also has history of multiple myeloma receiving treatment on an outpatient basis. The patient has end-stage renal disease on hemodialysis and the patient also has history of hypertension hypothyroidism and during the course of the illness, the patient was also found to have a spiculated 1.7 cm right upper lobe lesion that was PET avid. This morning, the patient remains intubated on the mechanical ventilator. The patient is on assist-control mode at rate of 20, tidal volume of 350, FiO2 50% with a PEEP of 5. The patient remains sedated with propofol at 50 mc. The blood gases from today showed a pH of 7.26 with a pCO2 of 56 and pO2 of 70 and the chest x-ray shows stable perihilar and lower lobe pulmonary infiltrates. ET tube is around 5 cm above the danilo. The patient also has a dialysis permacath port in the right subclavian. Blood culture was positive for coagulase-negative staph and Staph epidermidis on 08/23/2024. Sputum culture was negative. The patient is currently on Decadron 8 mg p.o. daily Symbicort. No antibiotic coverage for now. is also on Lovenox for DVT prophylaxis at a dose of 30 mg subcu on a daily basis. Hemodynamically, the patient is requiring a low-dose norepinephrine for blood pressure support. Echocardiogram done on 08/23/2024 shows mild impairment of LV function with an EF of around 40 to 45% evidence of severe pulmonary hypertension and RV dilatation and estimated pulmonary artery pressures of around 56. Blood work from today shows a white cell count of 10.6, hemoglobin 7.2 and platelet count of 333. The sodium level is sodium is 135 at 135 with a potassium of 5.3, BUN 70 creatinine of 4.34. She is still on NE low dose at 0.04mc/kg/min. Her fluid balance is 1.4 L over the past 24 hours. Her last hemodialysis session was on 08/25/2024 with a total of 1 L of fluid was removed. She is on Vital HP at 30 cc. hr. Residuals are oin 250 cc range On 08/28/2023, the patient is being seen for a follow-up. Remains intubated on mechanical ventilator. Patient remains on propofol running at 45 mcg/kg/min. On today's evaluation, the patient is on assist-control mode with rate of 20, tidal volume of 450, FiO2 of 50% and the PEEP was brought up to 8 as the morning blood gases showed a pH of 7.38 with a pCO2 of 50 and pO2 of 66 and this was an FiO2 of 50%. The chest x-ray findings are essentially unchanged. The patient continues to have perihilar and lower lobe pulmonary infiltrates, patchy, slightly worse on the left and there is also some background cardiomegaly. The patient underwent hemodialysis yesterday. The patient is end-stage renal disease and she is currently on hemodialysis. She remains on norepinephrine which is running at 0.1 mcg/kg/min and the patient remains on vasopressin physiologic dose at 0.03 units. The patient has been having difficulties with atrial fibrillation since yesterday. Cardiology has been involved in the case and the patient was started on Cardizem drip and Cardizem drip is running at 5 mg an hour. Nevertheless, the patient continues to be in A-fib and she remains tachycardic. On a separate note, her hemoglobin is at 6.7. Still awaiting an appropriate manage for the packed RBC transfusion. The rest of the blood work shows a white cell count of 7.9, platelet count of 258, BUN is 48 with a creatinine of 2.8, sodium is at 132, chloride is 94 and a serum bicarb is at 27 at this point. Remains on Decadron 8 mg p.o. daily. Afebrile. Receiving enteral feeding for nutritional support. On 08/29/2024, the patient is being seen for a follow-up. The patient remains intubated on the mechanical ventilator. This morning, the patient is on propofol running at 30 mcg/kg/min. The patient is on mechanical ventilator assist-control mode rate of 20, tidal volume of 450, FiO2 50% with a PEEP of 8. Blood gas from today showed a pH of 7.27 with a pCO2 of 53 and pO2 of 97. CAT scan of the brain was negative. CAT scan of the chest was also completed yesterday and it showed interstitial infiltrates bilaterally consistent with COVID-19 pneumonia. At the same time, the patient had areas of consolidation lung bases left more than right highly suspicious for a bacterial infection. Based on that, the patient was started on a combination of Zosyn and vancomycin. The patient received a unit of packed RBC and the hemoglobin today is at 7.3. The patient remains on low-dose norepinephrine running at 0.08 mcg/kg/min. IV fluids are currently at KVO. Receiving vital high-protein at rate of 40 cc an hour. The patient encountered atrial fibrillation and she is currently back in normal sinus rhythm. She remains on amiodarone at 0.5 mg/min. Last hemodialysis session was on 08/27/2024. The white cell count is at 4.7, hemoglobin 7.3 and a platelet count of 188. Sodium is at 131 with a potassium level of 5.1, BUN is 81 with a creatinine of 3.3. No other significant events overnight. The patient is currently afebrile. Overnight, the patient was having low-grade fever On 08/30/2024, the patient is being seen for a follow-up. The patient remains intubated on the mechanical ventilator. This morning, the patient is on propofol running at 15 mcg/kg/min. She is on assist-control mode of mechanical ventilation and the patient is on assist-control rate of 20, tidal volume of 450, FiO2 50% with a PEEP of 6. Blood gas showed pH of 7.26 with a pCO2 of 57 and pO2 of 78. Chest x-ray shows stable, probably slightly improved perihilar and lower lobe pulmonary filtration as the patient is currently on a combination of Zosyn and vancomycin. The patient is also to undergo hemodialysis today. Hemodynamically, the patient is in normal sinus rhythm. The patient is on no pressors. The patient is dealing vital high-protein at rate of 40 cc an hour. Blood work from today shows a white cell count of 3.7 with a hemoglobin 8.2 and a platelet count of 143. The sodium is at 130, potassium is at 5.9 with a chloride of 93 and a bicarb of 19. BUN is 119 with a potassium level of 3.8. The patient remains on Decadron. Rest of the medications are essentially unchanged. The patient was given a sedation holiday yesterday and the patient was able to arouse and follows some simple commands. Not ready for extubation yet. Hemoglobin has been stable. No signs of any bleeding. 08/31/2024, the patient is being seen for a follow-up. The patient remains on propofol running at 25 mcg/kg/min. Breathing seems to be labile and the patient continues to have a high minute ventilation of around 16 to 17 L/min. She remains on assist-control mode of mechanical ventilation at rate of 20, tidal volume of 500, FiO2 50% with a PEEP of 6. Blood gas showed a pH of 7.37 with a pCO2 of 45 and pO2 of 74. The chest x-ray findings are stable and the patient stable bilateral pulmonary filtrates. The patient underwent hemodialysis yesterday and a total of 650 cc of fluid was removed. Postdialysis, the patient was placed on norepinephrine which is currently running at 0.06 mcg/kg/min. The patient is in a normal sinus rhythm and she converted as of 3 AM this morning. She is on vital high-protein at rate of 40 cc an hour. Afebrile for now. White cell count is down to 1.7 with a hemoglobin 7.7 and a platelet count of 106. Sodium is at 133, potassium is at 4.7, bicarb is 25 with a BUN of 19 and creatinine of 2.6. Vancomycin trough level was 18. Objective - Vital Signs Vital signs: Vital Signs Temp 98.5 F 08/31/24 04:00 Pulse 96 08/31/24 09:15 Resp 29 H 08/31/24 09:15 BP 110/58 08/31/24 09:15 Pulse Ox 93 L 08/31/24 09:15 FiO2 50 08/31/24 08:03 Intake & Output 08/30/24 08/31/24 08/31/24 18:59 06:59 18:59 Intake Total 1841.863 630.531 142 Output Total 1045 28 10 Balance 796.863 602.531 132 Weight 59.3 kg 60.7 kg 60.7 kg Intake: IV 186 66 32 .9NS Pressure Bag 66 66 12 Sodium Chloride 0.9% 500 120 20 ml 500 ml @ 20 mls/hr IV .Q24H [facility] Rx#:[id number] Intake, IV Titration 195.863 114.531 Amount Norepinephrine 8 mg In 16.495 37.892 Sodium Chloride 0.9% 250 ml @ 0.03 MCG/KG/MIN 3. 106 mls/hr IV .Q24H EVEYLN Rx#:[id number] Sodium Chloride 0.9% 500 100 ml 500 ml @ 20 mls/hr IV .Q24H [facility]ELY[facility] Rx#:[id number] propofoL 1,000 mg In 79.368 76.639 Empty Bag 1 bag @ 15 MCG/ KG/MIN 4.815 mls/hr IV . [id number] [facility] Rx#:[id number] Tube Feeding 400 360 80 Hemodialysis 1000 Other 60 90 30 Output: Urine 45 28 10 Hemodialysis 650 Hemodialysis Net Amount 350 Other: Voiding Method Indwelling Catheter Indwelling Catheter # Bowel Movements 1 1 1 ABP, PAP, CO, CI - Last Documented Arterial Blood Pressure 94/51 - Exam GENERAL EXAM: Intubated, sedated, 63-year-old female, on the ventilator, in no apparent distress. HEAD: Normocephalic. EYES: Normal reaction of pupils, equal size. NOSE: Clear with pink turbinates. THROAT: Oral endotracheal and gastric tube secured in place. No erythema or exudates. NECK: No masses, no JVD. CHEST: No chest wall deformity. LUNGS: Equal air entry with no crackles, wheeze, rhonchi or dullness. CVS: S1 and S2 normal with no audible murmur, regular rhythm. ABDOMEN: No hepatosplenomegaly, normal bowel sounds, no guarding or rigidity. SPINE: No scoliosis or deformity SKIN: No rashes CENTRAL NERVOUS SYSTEM: No focal deficits, tone is normal in all 4 extremities. EXTREMITIES: There is no peripheral edema. No clubbing, no cyanosis. Peripheral pulses are intact. - Labs CBC & Chem 7: 08/31/24 06:26 08/31/24 06:26 Labs: Abnormal Lab Results - Last 24 Hours (Table) 08/30/24 08/30/24 08/30/24 Range/Units 11:24 13:31 17:50 WBC (3.8-10.6) k/uL RBC (3.80-5.40) m/uL Hgb (11.4-16.0) gm/dL Hct (34.0-46.0) % RDW (11.5-15.5) % Plt Count (150-450) k/uL Lymphocytes # (1.0-4.8) k/uL ABG pCO2 51 H (35-45) mmHg ABG pO2 140 H (83-108) mmHg ABG HCO3 28 H (21-25) mmol/L ABG Total CO2 30 H (19-24) mmol/L ABG O2 Saturation 99.2 H (94-97) % Hemoglobin 7.9 L (11.4-16.0) gm/dL Sodium (137-145) mmol/L Chloride (98-107) mmol/L BUN (7-17) mg/dL Creatinine (0.52-1.04) mg/dL Glucose (74-99) mg/dL POC Glucose (mg/dL) 135 H 201 H (70-110) mg/dL Calcium (8.4-10.2) mg/dL ALT (4-34) U/L Total Protein (6.3-8.2) g/dL Albumin (3.5-5.0) g/dL 08/31/24 08/31/24 08/31/24 Range/Units 00:22 05:37 06:26 WBC 1.7 L (3.8-10.6) k/uL RBC 2.66 L (3.80-5.40) m/uL Hgb 7.7 L (11.4-16.0) gm/dL Hct 23.8 L (34.0-46.0) % RDW 19.9 H (11.5-15.5) % Plt Count 106 L (150-450) k/uL Lymphocytes # 0.1 L (1.0-4.8) k/uL ABG pCO2 (35-45) mmHg ABG pO2 74 L (83-108) mmHg ABG HCO3 26 H (21-25) mmol/L ABG Total CO2 28 H (19-24) mmol/L ABG O2 Saturation (94-97) % Hemoglobin 7.5 L (11.4-16.0) gm/dL Sodium (137-145) mmol/L Chloride (98-107) mmol/L BUN (7-17) mg/dL Creatinine (0.52-1.04) mg/dL Glucose (74-99) mg/dL POC Glucose (mg/dL) 135 H (70-110) mg/dL Calcium (8.4-10.2) mg/dL ALT (4-34) U/L Total Protein (6.3-8.2) g/dL Albumin (3.5-5.0) g/dL 08/31/24 08/31/24 Range/Units 06:26 06:37 WBC (3.8-10.6) k/uL RBC (3.80-5.40) m/uL Hgb (11.4-16.0) gm/dL Hct (34.0-46.0) % RDW (11.5-15.5) % Plt Count (150-450) k/uL Lymphocytes # (1.0-4.8) k/uL ABG pCO2 (35-45) mmHg ABG pO2 (83-108) mmHg ABG HCO3 (21-25) mmol/L ABG Total CO2 (19-24) mmol/L ABG O2 Saturation (94-97) % Hemoglobin (11.4-16.0) gm/dL Sodium 133 L (137-145) mmol/L Chloride 96 L (98-107) mmol/L BUN 90 H (7-17) mg/dL Creatinine 2.65 H (0.52-1.04) mg/dL Glucose 139 H (74-99) mg/dL POC Glucose (mg/dL) 147 H (70-110) mg/dL Calcium 8.1 L (8.4-10.2) mg/dL ALT 63 H (4-34) U/L Total Protein 5.7 L (6.3-8.2) g/dL Albumin 2.3 L (3.5-5.0) g/dL Microbiology - Last 24 Hours (Table) 08/25/24 12:50 Blood Culture - Final Blood Assessment and Plan Plan: Acute hypoxemic respiratory failure suspect secondary to an acute exacerbation of chronic obstructive pulmonary disease and acute exacerbation of chronic systolic congestive heart failure, CoVID infection. CAT scan of the chest was completed on 08/28/2024 and the findings are consistent with COVID-19 related pneumonia and the patient had patchy areas of consolidation in the lung bases left more than right suggestive of a bacterial infection based on that the patient was started on a combination of Zosyn and vancomycin. The patient remains on steroids. The chest x-ray remains unchanged and the patient has stable bilateral pulmonary filtrates. Antibiotics are still being given in combination with steroids. The patient continues to have a high minute ventilation. Improvement in acid-base status and the patient is stable oxygenation. Breathing seems to be labored even while being on assist-control mode of mechanical ventilation, volume-cycled. Low-grade fever, currently afebrile Hypotension, currently low-dose pressors COVID-19 infection and possible COVID-pneumonia, currently on Decadron History of multiple myeloma receiving treatment as recently as July 2024, and the patient has been maintained on Revlimid that was started on 06/12/2024 with daratumumab, completed total of 3 cycles and the Velcade being held since 08/03/2024 due to cytopenias. CHF with mild impairment of LV function with an ejection fraction of 40 to 45% and RV dilatation with moderate to severe pulm hypertension with a PA pressure estimated to be at the 56 based on echocardiogram that was done on 08/24/2024. Right upper lobe 1.7 cm spiculated lesion, PET positive History of chronic tobacco dependence Hypertension End-stage renal disease receiving hemodialysis, maintained on hemodialysis on Tuesday and Saturdays via permacath. Last hemodialysis was performed on 08/30/2024 with a total of 650 cc of ultrafiltration Hypothyroidism Leg pain initially causing this admission on 08/21/2024, the patient has history of chronic right hip pain and pain in the groin radiating to the right lower extremity and lateral hip. Right femur/hip and pelvic x-ray showed moderate degenerative changes. Bone scan on 08/09/2024 showed no hip fracture and no abnormal uptake to suggest any other abnormalities Such as osseous metastases. Anemia of chronic disease in addition to multiple myeloma, hemoglobin is at 7.3 and the patient received a unit of packed RBC. Plan: Continue vent support, switch this patient to pressure control mode of mechanical ventilation with a pressure control of 20 and rate of 20 and a nig httime of 0.9. PEEP will be kept at 6 with an FiO2 of 50%. Hemodialysis performed on 08/30/2024 CAT scan of the chest, no contrast, was noted and the patient is currently on broad-spectrum antibiotics in combination with Decadron. Continue combination of Zosyn and vancomycin Chest x-ray findings showed stable bilateral pulmonary infiltrates. Continue Decadron Continue amiodarone 400 mg p.o. twice a day Continue metoprolol 25 mg twice daily Current rhythm is sinus Transfused with a unit of packed RBC on 08/28/2024 Keep the patient sedated on propofol, sedation holiday was given a 08/30/2024 with appropriate arousal Continue vital HP for nourishment Hemodialysis per nephrology Not ready for weaning or extubation yet Will continue to follow. Condition remains critical. Critical care evaluation , done in >30 min Time with Patient: Greater than 30
[2024-08-31 14:51] LABS: Albumin 1.98 g/dL (3.80-4.90); Gamma Globulin 1.46 g/dL (0.70-1.50)
[2024-08-31 17:24] LABS: Glucose,Whole Blood 214 mg/dL (70-110)
[2024-08-31 23:39] LABS: Glucose,Whole Blood 155 mg/dL (70-110)
[2024-09-01 05:15] LABS: Anisocytosis Moderate; HGB 7.5 gm/dL (11.4-16.0); Hypochromasia Moderate; MCHC 32.4 g/dL (31.0-37.0); MCV 89.4 fL (80.0-100.0); Mean Platelet Volume 9.6; RBC 2.58 m/uL (3.80-5.40); RDW 20.2 % (11.5-15.5); WBC 2.2 k/uL (3.8-10.6)
[2024-09-01 05:40] LABS: ABG Base Excess -2.3 mmol/L; ABG HCO3 23 mmol/L (21-25); ABG PCO2 39 mmHg (35-45); ABG PH 7.38 (7.35-7.45); ABG PO2 101 mmHg (83-108); ABG TCO2 24 mmol/L (19-24)
[2024-09-01 05:44] LABS: Allen Test Performed? no
[2024-09-01 05:44] LABS: ALT 53 U/L (4-34); AST 18 U/L (14-36); Albumin 2.4 g/dL (3.5-5.0); Alkaline Phosphatase 93 U/L (38-126); Anion Gap 20 mmol/L; Calcium 8.5 mg/dL (8.4-10.2); Carbon Dioxide 18 mmol/L (22-30); Chloride 96 mmol/L (98-107); Glucose 148 mg/dL (74-99); Potassium 5.1 mmol/L (3.5-5.1); Sodium 134 mmol/L (137-145); Total Bilirubin 0.5 mg/dL (0.2-1.3); Total Protein 5.8 g/dL (6.3-8.2)
[2024-09-01 05:50] LABS: African American GFR (CKD) 16 (>60 ml/min/1.73 sqM); Non-African American GFR(CKD) 14 (>60 ml/min/1.73 sqM)
[2024-09-01 06:00] LABS: Blood Urea Nitrogen 117 mg/dL (7-17)
[2024-09-01 06:10] LABS: Glucose,Whole Blood 160 mg/dL (70-110)
[2024-09-01 06:16] LABS: Platelet Count 92 k/uL (150-450)
--- NOTE | 2024-09-01 09:00 | XR ---
EXAMINATION TYPE: XR chest 1V portable DATE OF EXAM: 09/01/2024 5:38 AM COMPARISON: 08/31/2024 CLINICAL INDICATION: Female, 64 years old with history of infiltrates, TECHNIQUE: XR chest 1V portable view(s) obtained. FINDINGS: The heart size is normal. The pulmonary vasculature is prominent. Diffuse increased lung markings are present. This may be patching slightly greater in the left perihi lar lower lobe. Nasogastric tube transverses the thorax. Double-lumen catheter on the right has its tip in the superi or vena cava region. Left central venous catheter has its tip in the distal superior vena cava region . There is is the calculated area within the right upper lobe. Underlying mass is not excluded. Follow- up to clearing is recommended IMPRESSION: 1. Patchy bilateral lung infiltrates, stable. 2. Irregular density right upper lobe. Continued follow-up recommended. 3. Findings appear stable from comparison [facility], , 09/01/2024 8:57 AM
--- NOTE | 2024-09-01 10:52 | P.PN ---
Subjective Patient is seen for follow-up for end-stage renal disease. Patient remains on the vent. FiO2 at 50%. Seen on dialysis. Levophed has been increased slightly. No significant UF today. Objective - Vital Signs Vital signs: Vital Signs Temp 100.2 F H 09/01/24 08:00 Pulse 108 H 09/01/24 10:00 Resp 21 09/01/24 10:00 BP 94/61 09/01/24 10:00 Pulse Ox 97 09/01/24 10:00 FiO2 50 09/01/24 08:49 Intake & Output 08/31/24 09/01/24 09/01/24 18:59 06:59 18:59 Intake Total 1478.223 981.948 404.367 Output Total 35 15 0 Balance 1443.223 966.948 404.367 Weight 60.7 kg 61.1 kg Intake: IV 662 286 104 .9NS Pressure Bag 72 48 18 Piperacillin-Tazobactam 3 100 .375 gm In Sodium Chloride 0.9% 100 ml @ 25 mls/hr IVPB Q12H [facility] Rx# :[id number] Sodium Chloride 0.9% 500 240 220 80 ml 500 ml @ 20 mls/hr IV .Q24H [facility] Rx#:[id number] Vancomycin 1,000 mg In 250 18 6 Sodium Chloride 0.9% 250 ml @ 125 mls/hr IVPB ONCE ONE Rx#:[id number] Intake, IV Titration 206.223 165.948 110.367 Amount Norepinephrine 8 mg In 127.150 103.781 52.694 Sodium Chloride 0.9% 250 ml @ 0.03 MCG/KG/MIN 3. 106 mls/hr IV .Q24H [facility] Rx#:[id number] propofoL 1,000 mg In 79.073 62.167 57.673 Empty Bag 1 bag @ 15 MCG/ KG/MIN 4.815 mls/hr IV . [id number] [facility] Rx#:[id number] Tube Feeding 520 440 160 Other 90 90 30 Output: Urine 35 15 0 Other: Voiding Method Indwelling Catheter Indwelling Catheter Indwelling Catheter # Bowel Movements 1 1 ABP, PAP, CO, CI - Last Documented Arterial Blood Pressure 101/55 - Exam Patient is sedated and intubated Examination of the heart S1 and S2 Examination of the lungs bilateral breath sounds are heard Abdomen is soft nontender No edema noted in the lower extremities - Labs CBC & Chem 7: 09/01/24 04:28 09/01/24 04:28 Labs: Abnormal Lab Results - Last 24 Hours (Table) 08/27/24 08/31/24 08/31/24 Range/Units 05:48 11:10 17:22 WBC (3.8-10.6) k/uL RBC (3.80-5.40) m/uL Hgb (11.4-16.0) gm/dL Hct (34.0-46.0) % RDW (11.5-15.5) % Plt Count (150-450) k/uL ABG O2 Saturation (94-97) % Hemoglobin (11.4-16.0) gm/dL Sodium (137-145) mmol/L Chloride (98-107) mmol/L Carbon Dioxide (22-30) mmol/L BUN (7-17) mg/dL Creatinine (0.52-1.04) mg/dL Glucose (74-99) mg/dL POC Glucose (mg/dL) 150 H 214 H (70-110) mg/dL ALT (4-34) U/L Total Protein (6.3-8.2) g/dL Albumin (3.5-5.0) g/dL Albumin (PEP) 1.98 L (3.80-4.90) g/dL Shdfw-2-Zqbjrcnsp 0.81 H (0.10-0.40) g/dL Aheof-6-Iamqraiby 1.38 H (0.60-1.00) g/dL 08/31/24 09/01/24 09/01/24 Range/Units 23:39 04:28 04:28 WBC 2.2 L (3.8-10.6) k/uL RBC 2.58 L (3.80-5.40) m/uL Hgb 7.5 L (11.4-16.0) gm/dL Hct 23.0 L (34.0-46.0) % RDW 20.2 H (11.5-15.5) % Plt Count 92 L (150-450) k/uL ABG O2 Saturation (94-97) % Hemoglobin (11.4-16.0) gm/dL Sodium 134 L (137-145) mmol/L Chloride 96 L (98-107) mmol/L Carbon Dioxide 18 L (22-30) mmol/L BUN 117 H* (7-17) mg/dL Creatinine 3.37 H (0.52-1.04) mg/dL Glucose 148 H (74-99) mg/dL POC Glucose (mg/dL) 155 H (70-110) mg/dL ALT 53 H (4-34) U/L Total Protein 5.8 L (6.3-8.2) g/dL Albumin 2.4 L (3.5-5.0) g/dL Albumin (PEP) (3.80-4.90) g/dL Twyob-9-Zzqbvxywh (0.10-0.40) g/dL Bybgx-0-Scbupfbho (0.60-1.00) g/dL 09/01/24 09/01/24 Range/Units 05:35 06:08 WBC (3.8-10.6) k/uL RBC (3.80-5.40) m/uL Hgb (11.4-16.0) gm/dL Hct (34.0-46.0) % RDW (11.5-15.5) % Plt Count (150-450) k/uL ABG O2 Saturation 98.0 H (94-97) % Hemoglobin 7.3 L (11.4-16.0) gm/dL Sodium (137-145) mmol/L Chloride (98-107) mmol/L Carbon Dioxide (22-30) mmol/L BUN (7-17) mg/dL Creatinine (0.52-1.04) mg/dL Glucose (74-99) mg/dL POC Glucose (mg/dL) 160 H (70-110) mg/dL ALT (4-34) U/L Total Protein (6.3-8.2) g/dL Albumin (3.5-5.0) g/dL Albumin (PEP) (3.80-4.90) g/dL Evjcc-5-Kffppmtnw (0.10-0.40) g/dL Vgpdg-5-Jdajnigxw (0.60-1.00) g/dL Microbiology - Last 24 Hours (Table) 08/26/24 10:57 Blood Culture - Final Blood Assessment and Plan Assessment: 1. End-stage renal disease on hemodialysis via right IJ permacath. 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 2. Right leg pain with soft tissue mass identified on pelvic CT which suggests an enlarged lymph node 3. Anemia, multifactorial associated with underlying multiple myeloma, chemotherapy and renal failure 4. Pulmonary nodule/mass 5. Volume overload 6. Acute hypoxic respiratory failure secondary to COVID pneumonia 7. A-fib with RVR 8. Hyperkalemia improved with dialysis. Plan: Hemodialysis today. Minimal UF
--- NOTE | 2024-09-01 11:25 | P.PN ---
Subjective Progress Note Date: 09/01/24 This is a 63-year-old female patient with a known history of multiple myeloma receiving chemotherapy recently, suspected lung cancer with a PET positive right upper lobe 1.7 cm spiculated nodule, chronic obstructive pulmonary disease, chronic tobacco dependence, hypertension, hypothyroidism, end-stage renal disease receiving hemodialysis. She was admitted here on 08/21/2024 with complaints of right lower extremity pain. Been undergoing evaluation. Today on August 23, 2024 she had rapid response called on her twice for increasing shortness of breath and hypoxemia. She was subsequently transferred to the intensive care unit. She was placed on BiPAP 07/27 and 100% FiO2. She continued to do poorly and was subsequently intubated and placed on the mechanical ventilator. Currently on assist-control mode at a rate of 20, tidal volume 350, FiO2 100% and a PEEP of 5. She did undergo a left subclavian triple-lumen catheter placement and a right radial arterial line placement. Chest x-ray revealed satisfactory positions of the lines. Subtle scattered opacities may represent atypical pneumonia. Finding out today she is positive for COVID-19. Arterial blood gases post intubation revealed a PaO2 greater than 420, pCO2 of 60 and a pH of 7.28. FiO2 will be decreased accordingly. White count 8.5. Hemoglobin 8.7. Platelets 404. Sodium 129. Potassium 5.7. Bicarb 24. BUN 57. Creatinine 5.92. Glucose 82. She is sedated on propofol at 15 mcg/kg/min. The patient is seen today August 24, 2024 in follow-up in the intensive care unit. She remains intubated on the mechanical ventilator and assist-control mode at a rate of 20, tidal volume 350, FiO2 50% and a PEEP of 5. Morning blood gases revealed a PaO2 of 99. pCO2 48. pH 7.35. She is still requiring norepinephrine at 7 mcg/min. Cardizem drip at 5 mg an hour. Propofol at 40 mcg/kg/min. Lactated Ringer's at 100 mL/h. She is being nourished with vital HP at 10 mL/h with a goal of 46 mL/h. She remains on Symbicort, albuterol, Decadron. She is on Lovenox for DVT prophylaxis. Protonix for GI prophylaxis. Blood cultures now showing gram-positive cocci in clusters. Sputum culture pending. Vancomycin will be given x 1 until further cultures result. White count 6.6. Hemoglobin 7.0. Platelets 352. Sodium 132. Potassium 4.8. Bicarb 25. BUN 32. Creatinine 3.32. Glucose 108. The patient is seen today August 25, 2024 in follow-up in the intensive care unit. She remains intubated on the mechanical ventilator currently in settings of assist-control mode at a rate of 20, tidal volume 350, FiO2 50% and a PEEP of 5. Morning blood gases revealed a PaO2 of 91. pCO2 of 53 and a pH of 7.28. Chest x-ray reveals chronic and for somatic changes with mild cardiomegaly and patchy bilateral multifocal edema. No significant change. She remains on norepinephrine at 4 mcg/min. Cardizem drip is off. She was having sinus pauses yesterday. She has issues with intermittent atrial flutter. She is sedated on propofol at 40 mcg/kg/min. Lactated Ringer's at KVO. She is being nourished with vital HP at 10 mL/h. He received vancomycin x 1 for Staphylococcus epidermidis blood culture. Sputum culture revealed no growth. White count 12.9. Hemoglobin 7.5. Platelets 423. Sodium 133. Potassium 5.0. Bicarb 21. BUN 58. Creatinine 4.48. Glucose 134. She remains on Symbicort, albuterol, Decadron. Lovenox for DVT prophylaxis. Protonix for GI prophylaxis. The patient is seen today August 26, 2024 in follow-up in the intensive care unit. She remains intubated on mechanical ventilator and assist-control mode with a rate of 20, tidal valve 350, FiO2 50% and a PEEP of 5. Morning blood gases revealed a PaO2 of 90. pCO2 57 and a pH of 7.28. She did receive hemodialysis with 500 mL of fluid removed yesterday. She remains on norepinephrine at 1.7 mcg/min. Propofol at 50 mcg/kg/min. Lactated Ringer's at KVO. Vital HP at 10 mL an hour with a goal of 46 mL/h. She is continued with high residuals. May need Reglan if no improvement. She remains on albuterol, Symbicort, Decadron. Lovenox for DVT prophylaxis. Show chronic and for somatic changes and mild cardiomegaly with small to tiny left pleural effusion and patchy bilateral multifocal edema and/or acute infiltrates. No significant change. Blood culture was positive for Staphylococcus epidermidis. Sputum culture revealed no growth. White count 13.3. Hemoglobin 7.5. Platelets 364. Sodium 133. Potassium 5.1. Bicarb 24. BUN 41. Creatinine 2.91. Glucose 137. Currently in a +250 mL balance. On 08/27/2024, this patient is being seen for a follow-up. The patient remains intubated on the mechanical ventilator due to a combination of COPD and CHF exacerbation and COVID-19 infection. Noted the patient also has history of multiple myeloma receiving treatment on an outpatient basis. The patient has end-stage renal disease on hemodialysis and the patient also has history of hypertension hypothyroidism and during the course of the illness, the patient was also found to have a spiculated 1.7 cm right upper lobe lesion that was PET avid. This morning, the patient remains intubated on the mechanical ventilator. The patient is on assist-control mode at rate of 20, tidal volume of 350, FiO2 50% with a PEEP of 5. The patient remains sedated with propofol at 50 mc. The blood gases from today showed a pH of 7.26 with a pCO2 of 56 and pO2 of 70 and the chest x-ray shows stable perihilar and lower lobe pulmonary infiltrates. ET tube is around 5 cm above the danilo. The patient also has a dialysis permacath port in the right subclavian. Blood culture was positive for coagulase-negative staph and Staph epidermidis on 08/23/2024. Sputum culture was negative. The patient is currently on Decadron 8 mg p.o. daily Symbicort. No antibiotic coverage for now. is also on Lovenox for DVT prophylaxis at a dose of 30 mg subcu on a daily basis. Hemodynamically, the patient is requiring a low-dose norepinephrine for blood pressure support. Echocardiogram done on 08/23/2024 shows mild impairment of LV function with an EF of around 40 to 45% evidence of severe pulmonary hypertension and RV dilatation and estimated pulmonary artery pressures of around 56. Blood work from today shows a white cell count of 10.6, hemoglobin 7.2 and platelet count of 333. The sodium level is sodium is 135 at 135 with a potassium of 5.3, BUN 70 creatinine of 4.34. She is still on NE low dose at 0.04mc/kg/min. Her fluid balance is 1.4 L over the past 24 hours. Her last hemodialysis session was on 08/25/2024 with a total of 1 L of fluid was removed. She is on Vital HP at 30 cc. hr. Residuals are oin 250 cc range On 08/28/2023, the patient is being seen for a follow-up. Remains intubated on mechanical ventilator. Patient remains on propofol running at 45 mcg/kg/min. On today's evaluation, the patient is on assist-control mode with rate of 20, tidal volume of 450, FiO2 of 50% and the PEEP was brought up to 8 as the morning blood gases showed a pH of 7.38 with a pCO2 of 50 and pO2 of 66 and this was an FiO2 of 50%. The chest x-ray findings are essentially unchanged. The patient continues to have perihilar and lower lobe pulmonary infiltrates, patchy, slightly worse on the left and there is also some background cardiomegaly. The patient underwent hemodialysis yesterday. The patient is end-stage renal disease and she is currently on hemodialysis. She remains on norepinephrine which is running at 0.1 mcg/kg/min and the patient remains on vasopressin physiologic dose at 0.03 units. The patient has been having difficulties with atrial fibrillation since yesterday. Cardiology has been involved in the case and the patient was started on Cardizem drip and Cardizem drip is running at 5 mg an hour. Nevertheless, the patient continues to be in A-fib and she remains tachycardic. On a separate note, her hemoglobin is at 6.7. Still awaiting an appropriate manage for the packed RBC transfusion. The rest of the blood work shows a white cell count of 7.9, platelet count of 258, BUN is 48 with a creatinine of 2.8, sodium is at 132, chloride is 94 and a serum bicarb is at 27 at this point. Remains on Decadron 8 mg p.o. daily. Afebrile. Receiving enteral feeding for nutritional support. On 08/29/2024, the patient is being seen for a follow-up. The patient remains intubated on the mechanical ventilator. This morning, the patient is on propofol running at 30 mcg/kg/min. The patient is on mechanical ventilator assist-control mode rate of 20, tidal volume of 450, FiO2 50% with a PEEP of 8. Blood gas from today showed a pH of 7.27 with a pCO2 of 53 and pO2 of 97. CAT scan of the brain was negative. CAT scan of the chest was also completed yesterday and it showed interstitial infiltrates bilaterally consistent with COVID-19 pneumonia. At the same time, the patient had areas of consolidation lung bases left more than right highly suspicious for a bacterial infection. Based on that, the patient was started on a combination of Zosyn and vancomycin. The patient received a unit of packed RBC and the hemoglobin today is at 7.3. The patient remains on low-dose norepinephrine running at 0.08 mcg/kg/min. IV fluids are currently at KVO. Receiving vital high-protein at rate of 40 cc an hour. The patient encountered atrial fibrillation and she is currently back in normal sinus rhythm. She remains on amiodarone at 0.5 mg/min. Last hemodialysis session was on 08/27/2024. The white cell count is at 4.7, hemoglobin 7.3 and a platelet count of 188. Sodium is at 131 with a potassium level of 5.1, BUN is 81 with a creatinine of 3.3. No other significant events overnight. The patient is currently afebrile. Overnight, the patient was having low-grade fever On 08/30/2024, the patient is being seen for a follow-up. The patient remains intubated on the mechanical ventilator. This morning, the patient is on propofol running at 15 mcg/kg/min. She is on assist-control mode of mechanical ventilation and the patient is on assist-control rate of 20, tidal volume of 450, FiO2 50% with a PEEP of 6. Blood gas showed pH of 7.26 with a pCO2 of 57 and pO2 of 78. Chest x-ray shows stable, probably slightly improved perihilar and lower lobe pulmonary filtration as the patient is currently on a combination of Zosyn and vancomycin. The patient is also to undergo hemodialysis today. Hemodynamically, the patient is in normal sinus rhythm. The patient is on no pressors. The patient is dealing vital high-protein at rate of 40 cc an hour. Blood work from today shows a white cell count of 3.7 with a hemoglobin 8.2 and a platelet count of 143. The sodium is at 130, potassium is at 5.9 with a chloride of 93 and a bicarb of 19. BUN is 119 with a potassium level of 3.8. The patient remains on Decadron. Rest of the medications are essentially unchanged. The patient was given a sedation holiday yesterday and the patient was able to arouse and follows some simple commands. Not ready for extubation yet. Hemoglobin has been stable. No signs of any bleeding. 08/31/2024, the patient is being seen for a follow-up. The patient remains on propofol running at 25 mcg/kg/min. Breathing seems to be labile and the patient continues to have a high minute ventilation of around 16 to 17 L/min. She remains on assist-control mode of mechanical ventilation at rate of 20, tidal volume of 500, FiO2 50% with a PEEP of 6. Blood gas showed a pH of 7.37 with a pCO2 of 45 and pO2 of 74. The chest x-ray findings are stable and the patient stable bilateral pulmonary filtrates. The patient underwent hemodialysis yesterday and a total of 650 cc of fluid was removed. Postdialysis, the patient was placed on norepinephrine which is currently running at 0.06 mcg/kg/min. The patient is in a normal sinus rhythm and she converted as of 3 AM this morning. She is on vital high-protein at rate of 40 cc an hour. Afebrile for now. White cell count is down to 1.7 with a hemoglobin 7.7 and a platelet count of 106. Sodium is at 133, potassium is at 4.7, bicarb is 25 with a BUN of 19 and creatinine of 2.6. Vancomycin trough level was 18. On 09/01/2024, the patient is being seen for a follow-up. Calm and comfortable, remains on propofol at 20 mcg/kg/min. This morning, her breathing is less labored and her minute ventilation is down to 12. She is on a pressure control mode of mechanical ventilation at rate of 20, pressure control of 20, I, 0.8, FiO2 of 50% with a PEEP of 6. Chest x-ray findings are unchanged. The patient is to undergo another session of hemodialysis today. Blood gas from today shows a pH of 7.39 with a pCO2 of 39 and pO2 of 101. Cardiac rhythm is sinus and the patient remains on a combination of oral amiodarone and metoprolol. The patient remains on vital high-protein at rate of 40 cc an hour. No pressors for now. The white cell count of 2.2 renal cell 0.5 and a platelet count of 92. Sodium is 134, BUN is 117 and a creatinine of 3.37. Potassium level is at 5.1. Serum bicarb is at 18. Remains on Zosyn and vancomycin. Sputum cultures have been negative. Blood cultures been negative. Remains on Lovenox 30 mg subcu for DVT prophylaxis. Remains on Decadron 8 mg p.o. on a daily basis. Objective - Vital Signs Vital signs: Vital Signs Temp 99.0 F 09/01/24 11:00 Pulse 103 H 09/01/24 11:00 Resp 25 H 09/01/24 11:00 BP 89/55 09/01/24 11:00 Pulse Ox 97 09/01/24 11:00 FiO2 50 09/01/24 08:49 Intake & Output 08/31/24 09/01/24 09/01/24 18:59 06:59 18:59 Intake Total 1478.223 981.948 479.511 Output Total 35 15 20 Balance 1443.223 966.948 459.511 Weight 60.7 kg 61.1 kg Intake: IV 662 286 130 .9NS Pressure Bag 72 48 24 Piperacillin-Tazobactam 3 100 .375 gm In Sodium Chloride 0.9% 100 ml @ 25 mls/hr IVPB Q12H [facility] Rx# :[id number] Sodium Chloride 0.9% 500 240 220 100 ml 500 ml @ 20 mls/hr IV .Q24H [facility] Rx#:[id number] Vancomycin 1,000 mg In 250 18 6 Sodium Chloride 0.9% 250 ml @ 125 mls/hr IVPB ONCE ONE Rx#:[id number] Intake, IV Titration 206.223 165.948 119.511 Amount Norepinephrine 8 mg In 127.150 103.781 61.838 Sodium Chloride 0.9% 250 ml @ 0.03 MCG/KG/MIN 3. 106 mls/hr IV .Q24H [facility] Rx#:[id number] propofoL 1,000 mg In 79.073 62.167 57.673 Empty Bag 1 bag @ 15 MCG/ KG/MIN 4.815 mls/hr IV . [id number] [facility] Rx#:[id number] Tube Feeding 520 440 200 Other 90 90 30 Output: Urine 35 15 20 Other: Voiding Method Indwelling Catheter Indwelling Catheter Indwelling Catheter # Bowel Movements 1 1 ABP, PAP, CO, CI - Last Documented Arterial Blood Pressure 88/53 - Labs CBC & Chem 7: 09/01/24 04:28 09/01/24 04:28 Labs: Abnormal Lab Results - Last 24 Hours (Table) 08/27/24 08/31/24 08/31/24 Range/Units 05:48 17:22 23:39 WBC (3.8-10.6) k/uL RBC (3.80-5.40) m/uL Hgb (11.4-16.0) gm/dL Hct (34.0-46.0) % RDW (11.5-15.5) % Plt Count (150-450) k/uL ABG O2 Saturation (94-97) % Hemoglobin (11.4-16.0) gm/dL Sodium (137-145) mmol/L Chloride (98-107) mmol/L Carbon Dioxide (22-30) mmol/L BUN (7-17) mg/dL Creatinine (0.52-1.04) mg/dL Glucose (74-99) mg/dL POC Glucose (mg/dL) 214 H 155 H (70-110) mg/dL ALT (4-34) U/L Total Protein (6.3-8.2) g/dL Albumin (3.5-5.0) g/dL Albumin (PEP) 1.98 L (3.80-4.90) g/dL Nyxed-9-Btdgsnfwr 0.81 H (0.10-0.40) g/dL Pkymj-0-Hfvlxjuee 1.38 H (0.60-1.00) g/dL 09/01/24 09/01/24 09/01/24 Range/Units 04:28 04:28 05:35 WBC 2.2 L (3.8-10.6) k/uL RBC 2.58 L (3.80-5.40) m/uL Hgb 7.5 L (11.4-16.0) gm/dL Hct 23.0 L (34.0-46.0) % RDW 20.2 H (11.5-15.5) % Plt Count 92 L (150-450) k/uL ABG O2 Saturation 98.0 H (94-97) % Hemoglobin 7.3 L (11.4-16.0) gm/dL Sodium 134 L (137-145) mmol/L Chloride 96 L (98-107) mmol/L Carbon Dioxide 18 L (22-30) mmol/L BUN 117 H* (7-17) mg/dL Creatinine 3.37 H (0.52-1.04) mg/dL Glucose 148 H (74-99) mg/dL POC Glucose (mg/dL) (70-110) mg/dL ALT 53 H (4-34) U/L Total Protein 5.8 L (6.3-8.2) g/dL Albumin 2.4 L (3.5-5.0) g/dL Albumin (PEP) (3.80-4.90) g/dL Bytni-7-Sudmirtsz (0.10-0.40) g/dL Ymvsk-9-Ygcvlmhps (0.60-1.00) g/dL 09/01/24 Range/Units 06:08 WBC (3.8-10.6) k/uL RBC (3.80-5.40) m/uL Hgb (11.4-16.0) gm/dL Hct (34.0-46.0) % RDW (11.5-15.5) % Plt Count (150-450) k/uL ABG O2 Saturation (94-97) % Hemoglobin (11.4-16.0) gm/dL Sodium (137-145) mmol/L Chloride (98-107) mmol/L Carbon Dioxide (22-30) mmol/L BUN (7-17) mg/dL Creatinine (0.52-1.04) mg/dL Glucose (74-99) mg/dL POC Glucose (mg/dL) 160 H (70-110) mg/dL ALT (4-34) U/L Total Protein (6.3-8.2) g/dL Albumin (3.5-5.0) g/dL Albumin (PEP) (3.80-4.90) g/dL Vnsgp-3-Qiconkbfa (0.10-0.40) g/dL Lqpqw-4-Ctgsyrrwe (0.60-1.00) g/dL Microbiology - Last 24 Hours (Table) 08/26/24 10:57 Blood Culture - Final Blood Assessment and Plan Plan: Acute hypoxemic respiratory failure suspect secondary to an acute exacerbation of chronic obstructive pulmonary disease and acute exacerbation of chronic systolic congestive heart failure, CoVID infection. CAT scan of the chest was completed on 08/28/2024 and the findings are consistent with COVID-19 related pneumonia and the patient had patchy areas of consolidation in the lung bases left more than right suggestive of a bacterial infection based on that the patient was started on a combination of Zosyn and vancomycin. The patient remains on steroids. The chest x-ray remains unchanged and the patient has stable bilateral pulmonary filtrates. Antibiotics are still being given in combination with steroids. Patient is currently on a pressure control mode of mechanical ventilation. There is improvement in oxygenation and acid-base status. Minute ventilation is lower compared to yesterday. Low-grade fever, currently afebrile Hypotension, recovered currently low-dose pressors COVID-19 infection and possible COVID-pneumonia, currently on Decadron History of multiple myeloma receiving treatment as recently as July 2024, and the patient has been maintained on Revlimid that was started on 06/12/2024 with daratumumab, completed total of 3 cycles and the Velcade being held since 08/03/2024 due to cytopenias. CHF with mild impairment of LV function with an ejection fraction of 40 to 45% and RV dilatation with moderate to severe pulm hypertension with a PA pressure estimated to be at the 56 based on echocardiogram that was done on 08/24/2024. Right upper lobe 1.7 cm spiculated lesion, PET positive History of chronic tobacco dependence Hypertension End-stage renal disease receiving hemodialysis, maintained on hemodialysis on Tuesday and Saturdays via permacath. Last hemodialysis was performed on 08/30/2024 with a total of 650 cc of ultrafiltration Hypothyroidism Leg pain initially causing this admission on 08/21/2024, the patient has history of chronic right hip pain and pain in the groin radiating to the right lower extremity and lateral hip. Right femur/hip and pelvic x-ray showed moderate degenerative changes. Bone scan on 08/09/2024 showed no hip fracture and no abnormal uptake to suggest any other abnormalities Such as osseous metastases. Anemia of chronic disease in addition to multiple myeloma, hemoglobin is at 7.3 and the patient received a unit of packed RBC. Plan: mechanical ventilation with a pressure control of 20 and rate of 20 and a nighttime of 0.9. PEEP will be kept at 6 with an FiO2 of 50%. I am going to go ahead and dropped respiratory rate down to 14 and dropped the PEEP down to 5 Hemodialysis performed on 08/30/2024, another session of hemodialysis to be done today CAT scan of the chest, no contrast, was noted and the patient is currently on broad-spectrum antibiotics in combination with Decadron. Continue combination of Zosyn and vancomycin Chest x-ray findings showed stable bilateral pulmonary infiltrates. Continue Decadron Continue amiodarone 400 mg p.o. twice a day Continue metoprolol 25 mg twice daily Current rhythm is sinus Transfused with a unit of packed RBC on 08/28/2024 Keep the patient sedated on propofol, sedation holiday was given a 08/30/2024 with appropriate arousal Continue vital HP for nourishment Hemodialysis per nephrology Not ready for weaning or extubation yet Will continue to follow. Condition remains critical. Critical care evaluation , done in >30 min Time with Patient: Greater than 30
[2024-09-01 12:01] LABS: Glucose,Whole Blood 107 mg/dL (70-110)
[2024-09-01 14:17] LABS: Appearance,Urine Clear (Clear); Bilirubin,Urine Negative (Negative); Blood,Urine Moderate (Negative); Color,Urine Colorless; Glucose,Urine (UA) Negative (Negative); Ketones,Urine Negative (Negative); Leukocyte Esterase,Urine Negative (Negative); Nitrite,Urine Negative (Negative); Protein,Urine 1+ (Negative); RBC,Urine 24 /hpf (0-5); Specific Gravity,Urine 1.009 (1.001-1.035); Squamous Epithelial Cell,Urine 1 /hpf (0-4); Urobilinogen,Urine <2.0 mg/dL (<2.0); WBC,Urine 4 /hpf (0-5)
--- NOTE | 2024-09-01 15:51 | P.PN ---
Subjective PROGRESS NOTE The patient is a 63-year-old female who was admitted with symptoms of progressive dyspnea, significant right groin discomfort, has a history of multiple myeloma, end-stage renal disease, lung nodules and evidence of malignancy. On presentation she was in atrial flutter with rapid ventricular response. Yesterday she became more dyspneic requiring mechanical ventilation and was transferred to the ICU. She is intubated and sedated at this time. She was in sinus mechanism for a period of time but she is in atrial fibrillation at this point. There is no evidence of ventricular ectopic activity. In the past her echocardiogram showed a preserved systolic function with mild mitral and mild to moderate tricuspid regurgitation and moderate pulmonary hypertension. August 25: The patient remains intubated and sedated, receiving dialysis today. She is off of IV Cardizem because of pauses. She continues to be in atrial fibrillation with overall controlled ventricular response. She continues to be on norepinephrine. The plan is to continue intubation today and attempt weaning tomorrow. Echocardiogram showed an ejection fraction of 40 to 45% with mild to moderate tricuspid regurgitation August 26: She remains intubated and sedated, in sinus mechanism with frequent PACs. She continues to be on norepinephrine, there is no evidence of ventricular tachycardia. She has been receiving hemodialysis. Continues to be on m etoprolol tartrate, tolerating the treatment, off IV Cardizem 08/27 Patient remains intubated and sedated. Currently on 50% FiO2. Low-dose norepinephrine. He remains in sinus rhythm with PACs. Remains sedated on propofol. Hemoglobin down to 6.7 however no active source of bleeding per nursing. She has not been on any anticoagulation. 08/28 Patient with continued anemia 6.6. No significant source of bleeding. She did require increasing vasopressors and vasopressin is added and norepinephrine slightly increased. She did have more tachycardia and therefore Cardizem drip was switched to amiodarone drip. Remains on FiO2 50% on the ventilator. Underwent HD yesterday. 08/29 Patient converted to normal sinus rhythm. Has been weaned off of vasopressors. Plan for hemodialysis tomorrow. On oral amiodarone. 08/30 Patient seen and examined. Remains on ventilator with FiO2 50% and PEEP of 6. Off of any days of pressors. Remains in normal sinus rhythm. 08/31 Patient has been in and out of A. fib and was in A. fib yesterday however converted back to sinus rhythm at approximately 3 AM. Heart rates in the low 100s. Underwent hemodialysis with 350 mL take it off yesterday. Remains on ventilator sedated. 09/01 Seen and examined. In Afib with CVR. On vent FiO2 50% and PEEP of 5. Gen: ill appearing LUNGS: Clear anteriorly HEART: Regular rate and rhythm, with extrasystole S1, S2. No S3. Systolic ejection murmur ABDOMEN: Soft, positive bowel sounds, no organomegaly EXTREMETIES: No edema, right inguinal mass IMPRESSION: 1. Acute respiratory failure with a combination of COVID infection, history of COPD and lung mass 2. Multiple myeloma 3. Paroxysmal atrial fibrillation and atrial flutter, off IV Cardizem because pauses. Not anticoagulated because of severe anemia, back in sinus mechanism with multiple PACs. 4. Anemia most likely related to the multiple myeloma 5. End-stage renal disease on hemodialysis 6. Prior history of hypertension 7. Right groin mass could be related to her malignancy PLAN: Continue with oral amiodarone and Metoprolol 25 She is in and out of A. fib however predominantly controlled. No anticoagulation given continued anemia. Hemodialysis per nephrology Objective - Vital Signs Vital signs: Vital Signs Temp 100.6 F H 09/01/24 14:00 Pulse 101 H 09/01/24 15:00 Resp 23 09/01/24 15:00 BP 101/61 09/01/24 15:00 Pulse Ox 97 09/01/24 14:45 FiO2 50 09/01/24 15:25 Intake & Output 08/31/24 09/01/24 09/01/24 18:59 06:59 18:59 Intake Total 1478.223 981.948 844.512 Output Total 35 15 65 Balance 1443.223 966.948 779.512 Weight 60.7 kg 61.1 kg Intake: IV 662 286 334 .9NS Pressure Bag 72 48 48 Piperacillin-Tazobactam 3 100 100 .375 gm In Sodium Chloride 0.9% 100 ml @ 25 mls/hr IVPB Q12H [facility] Rx# :[id number] Sodium Chloride 0.9% 500 240 220 180 ml 500 ml @ 20 mls/hr IV .Q24H [facility] Rx#:[id number] Vancomycin 1,000 mg In 250 18 6 Sodium Chloride 0.9% 250 ml @ 125 mls/hr IVPB ONCE ONE Rx#:[id number] Intake, IV Titration 206.223 165.948 170.512 Amount Norepinephrine 8 mg In 127.150 103.781 112.839 Sodium Chloride 0.9% 250 ml @ 0.03 MCG/KG/MIN 3. 106 mls/hr IV .Q24H [facility] Rx#:[id number] propofoL 1,000 mg In 79.073 62.167 57.673 Empty Bag 1 bag @ 15 MCG/ KG/MIN 4.815 mls/hr IV . [id number] [facility] Rx#:[id number] Tube Feeding 520 440 280 Other 90 90 60 Output: Urine 35 15 65 Other: Voiding Method Indwelling Catheter Indwelling Catheter Indwelling Catheter # Bowel Movements 1 1 1 ABP, PAP, CO, CI - Last Documented Arterial Blood Pressure 116/54 - Labs CBC & Chem 7: 09/01/24 04:28 09/01/24 04:28 Labs: Abnormal Lab Results - Last 24 Hours (Table) 08/31/24 08/31/24 09/01/24 Range/Units 17:22 23:39 04:28 WBC 2.2 L (3.8-10.6) k/uL RBC 2.58 L (3.80-5.40) m/uL Hgb 7.5 L (11.4-16.0) gm/dL Hct 23.0 L (34.0-46.0) % RDW 20.2 H (11.5-15.5) % Plt Count 92 L (150-450) k/uL ABG O2 Saturation (94-97) % Hemoglobin (11.4-16.0) gm/dL Sodium (137-145) mmol/L Chloride (98-107) mmol/L Carbon Dioxide (22-30) mmol/L BUN (7-17) mg/dL Creatinine (0.52-1.04) mg/dL Glucose (74-99) mg/dL POC Glucose (mg/dL) 214 H 155 H (70-110) mg/dL ALT (4-34) U/L Total Protein (6.3-8.2) g/dL Albumin (3.5-5.0) g/dL Urine Protein (Negative) Urine Blood (Negative) Urine RBC (0-5) /hpf 09/01/24 09/01/24 09/01/24 Range/Units 04:28 05:35 06:08 WBC (3.8-10.6) k/uL RBC (3.80-5.40) m/uL Hgb (11.4-16.0) gm/dL Hct (34.0-46.0) % RDW (11.5-15.5) % Plt Count (150-450) k/uL ABG O2 Saturation 98.0 H (94-97) % Hemoglobin 7.3 L (11.4-16.0) gm/dL Sodium 134 L (137-145) mmol/L Chloride 96 L (98-107) mmol/L Carbon Dioxide 18 L (22-30) mmol/L BUN 117 H* (7-17) mg/dL Creatinine 3.37 H (0.52-1.04) mg/dL Glucose 148 H (74-99) mg/dL POC Glucose (mg/dL) 160 H (70-110) mg/dL ALT 53 H (4-34) U/L Total Protein 5.8 L (6.3-8.2) g/dL Albumin 2.4 L (3.5-5.0) g/dL Urine Protein (Negative) Urine Blood (Negative) Urine RBC (0-5) /hpf 09/01/24 Range/Units 13:55 WBC (3.8-10.6) k/uL RBC (3.80-5.40) m/uL Hgb (11.4-16.0) gm/dL Hct (34.0-46.0) % RDW (11.5-15.5) % Plt Count (150-450) k/uL ABG O2 Saturation (94-97) % Hemoglobin (11.4-16.0) gm/dL Sodium (137-145) mmol/L Chloride (98-107) mmol/L Carbon Dioxide (22-30) mmol/L BUN (7-17) mg/dL Creatinine (0.52-1.04) mg/dL Glucose (74-99) mg/dL POC Glucose (mg/dL) (70-110) mg/dL ALT (4-34) U/L Total Protein (6.3-8.2) g/dL Albumin (3.5-5.0) g/dL Urine Protein 1+ H (Negative) Urine Blood Moderate H (Negative) Urine RBC 24 H (0-5) /hpf Microbiology - Last 24 Hours (Table) 08/26/24 10:57 Blood Culture - Final Blood
[2024-09-01 17:28] LABS: Glucose,Whole Blood 184 mg/dL (70-110)
--- NOTE | 2024-09-01 20:07 | P.PN ---
Subjective Progress Note Date: 09/01/24 Patient is evaluated today in the intensive care unit currently intubated and sedated on the mechanical ventilator with an FiO2 of 50%, PEEP of 6. Patient continues to have intermittent fevers with a Tmax of 102.1 in the last 24 hours. Patient has been continued on a course of antibiotic coverage with IV vancomycin and IV Zosyn patient is also on oral acyclovir. Does have a history of multiple myeloma. Found to be COVID-positive and was continued on oral dexamethasone. Due to the continued temps infectious disease was consulted for further recommendations and evaluation. Patient does have hemodialysis access through a right sided perm a cath. Blood cultures were requested. Chest x-ray today reveals patchy bilateral lung infiltrates stable with an irregular density in the right upper lobe. Labs reveal a white blood cell count of 2.2, hemoglobin 7.5, platelet count of 92, sodium of 134 potassium 5.1, BUN of 117 creatinine of 3.37, AST 18 ALT 53, alk phos 93. Unable to complete review of systems as patient is intubated and sedated in the ICU. PHYSICAL EXAMINATION: GENERAL: The patient is sedated and on the ventilator not in any acute distress. Well developed, well nourished. HEENT: Pupils are round and equally reacting to light. EOMI. No scleral icterus. No conjunctival pallor. Normocephalic, atraumatic. No pharyngeal erythema. No thyromegaly. CARDIOVASCULAR: S1 and S2 present. No murmurs, rubs, or gallops. PULMONARY: Chest is clear to auscultation, no wheezing or crackles. ABDOMEN: Soft, nontender, nondistended, normoactive bowel sounds. No palpable organomegaly. MUSCULOSKELETAL: No joint swelling or deformity. EXTREMITIES: No cyanosis, clubbing, or pedal edema. Nonpalpable dorsalis pedis pulses. Fingers and toes are dusky. NEUROLOGICAL: Patient is sedated. SKIN: No rashes. Assessment and plan Acute hypoxic respiratory failure requiring mechanical intubation multifactorial from COVID, COPD COVID-19 pneumonia Acute COPD exacerbation Acute on chronic systolic dysfunction Hypotensive shock requiring vasopressor support Paroxysmal atrial fibrillation currently not anticoagulated due to the anemia End-stage renal disease maintained on hemodialysis Multiple myeloma and pancytopenia Chronic right hip pain Hypothyroidism Former smoker GI prophylaxis DVT prophylaxis: Lovenox Full Code Plan Mechanical ventilator per tunnel miner Continue cardiac telemetry Patient is on amiodarone and metoprolol for rate control Continue antibiotics Continue oral dexamethasone Infectious disease consultation requested Patient scheduled to undergo hemodialysis today Multiple consultations following including oven heater helper, tunnel miner, cardiology Repeat labs in the AM The impression and plan of care has been dictated by Nickie Lowry, Nurse Practitioner as directed. Dr. Sylvester MD I have performed a history and physical examination and medical decision making of this patient, discussed the same with the dictator, and agree with the dictators assessment and plan as written, documented as a scribe. Based on total visit time, I have performed more than 50% of this visit. Objective - Vital Signs Vital signs: Vital Signs Temp 99.0 F 09/01/24 11:00 Pulse 103 H 09/01/24 11:00 Resp 25 H 09/01/24 11:00 BP 89/55 09/01/24 11:00 Pulse Ox 97 09/01/24 11:00 FiO2 50 09/01/24 12:12 Intake & Output 08/31/24 09/01/24 09/01/24 18:59 06:59 18:59 Intake Total 1478.223 981.948 479.511 Output Total 35 15 20 Balance 1443.223 966.948 459.511 Weight 60.7 kg 61.1 kg Intake: IV 662 286 130 .9NS Pressure Bag 72 48 24 Piperacillin-Tazobactam 3 100 .375 gm In Sodium Chloride 0.9% 100 ml @ 25 mls/hr IVPB Q12H [facility] Rx# :[id number] Sodium Chloride 0.9% 500 240 220 100 ml 500 ml @ 20 mls/hr IV .Q24H [facility] Rx#:[id number] Vancomycin 1,000 mg In 250 18 6 Sodium Chloride 0.9% 250 ml @ 125 mls/hr IVPB ONCE ONE Rx#:[id number] Intake, IV Titration 206.223 165.948 119.511 Amount Norepinephrine 8 mg In 127.150 103.781 61.838 Sodium Chloride 0.9% 250 ml @ 0.03 MCG/KG/MIN 3. 106 mls/hr IV .Q24H [facility] Rx#:[id number] propofoL 1,000 mg In 79.073 62.167 57.673 Empty Bag 1 bag @ 15 MCG/ KG/MIN 4.815 mls/hr IV . [id number] [facility] Rx#:[id number] Tube Feeding 520 440 200 Other 90 90 30 Output: Urine 35 15 20 Other: Voiding Method Indwelling Catheter Indwelling Catheter Indwelling Catheter # Bowel Movements 1 1 ABP, PAP, CO, CI - Last Documented Arterial Blood Pressure 88/53 - Labs CBC & Chem 7: 09/01/24 04:28 09/01/24 04:28 Labs: Abnormal Lab Results - Last 24 Hours (Table) 08/27/24 08/31/24 08/31/24 Range/Units 05:48 17:22 23:39 WBC (3.8-10.6) k/uL RBC (3.80-5.40) m/uL Hgb (11.4-16.0) gm/dL Hct (34.0-46.0) % RDW (11.5-15.5) % Plt Count (150-450) k/uL ABG O2 Saturation (94-97) % Hemoglobin (11.4-16.0) gm/dL Sodium (137-145) mmol/L Chloride (98-107) mmol/L Carbon Dioxide (22-30) mmol/L BUN (7-17) mg/dL Creatinine (0.52-1.04) mg/dL Glucose (74-99) mg/dL POC Glucose (mg/dL) 214 H 155 H (70-110) mg/dL ALT (4-34) U/L Total Protein (6.3-8.2) g/dL Albumin (3.5-5.0) g/dL Albumin (PEP) 1.98 L (3.80-4.90) g/dL Jfnco-2-Sukfnyvff 0.81 H (0.10-0.40) g/dL Pybgu-4-Nryzcqesl 1.38 H (0.60-1.00) g/dL 09/01/24 09/01/24 09/01/24 Range/Units 04:28 04:28 05:35 WBC 2.2 L (3.8-10.6) k/uL RBC 2.58 L (3.80-5.40) m/uL Hgb 7.5 L (11.4-16.0) gm/dL Hct 23.0 L (34.0-46.0) % RDW 20.2 H (11.5-15.5) % Plt Count 92 L (150-450) k/uL ABG O2 Saturation 98.0 H (94-97) % Hemoglobin 7.3 L (11.4-16.0) gm/dL Sodium 134 L (137-145) mmol/L Chloride 96 L (98-107) mmol/L Carbon Dioxide 18 L (22-30) mmol/L BUN 117 H* (7-17) mg/dL Creatinine 3.37 H (0.52-1.04) mg/dL Glucose 148 H (74-99) mg/dL POC Glucose (mg/dL) (70-110) mg/dL ALT 53 H (4-34) U/L Total Protein 5.8 L (6.3-8.2) g/dL Albumin 2.4 L (3.5-5.0) g/dL Albumin (PEP) (3.80-4.90) g/dL Fzfpc-7-Idntgjnxz (0.10-0.40) g/dL Zbuns-6-Ygwmxjwzo (0.60-1.00) g/dL 09/01/24 Range/Units 06:08 WBC (3.8-10.6) k/uL RBC (3.80-5.40) m/uL Hgb (11.4-16.0) gm/dL Hct (34.0-46.0) % RDW (11.5-15.5) % Plt Count (150-450) k/uL ABG O2 Saturation (94-97) % Hemoglobin (11.4-16.0) gm/dL Sodium (137-145) mmol/L Chloride (98-107) mmol/L Carbon Dioxide (22-30) mmol/L BUN (7-17) mg/dL Creatinine (0.52-1.04) mg/dL Glucose (74-99) mg/dL POC Glucose (mg/dL) 160 H (70-110) mg/dL ALT (4-34) U/L Total Protein (6.3-8.2) g/dL Albumin (3.5-5.0) g/dL Albumin (PEP) (3.80-4.90) g/dL Iqurh-8-Jwtziztau (0.10-0.40) g/dL Meffx-2-Qhtjizgtd (0.60-1.00) g/dL Microbiology - Last 24 Hours (Table) 08/26/24 10:57 Blood Culture - Final Blood Assessment and Plan Time with Patient: Less than 30
[2024-09-01 23:15] LABS: Glucose,Whole Blood 172 mg/dL (70-110)
[2024-09-02 05:32] LABS: Glucose,Whole Blood 141 mg/dL (70-110)
[2024-09-02 05:53] LABS: ABG Base Excess -4.9 mmol/L; ABG HCO3 20 mmol/L (21-25); ABG PCO2 34 mmHg (35-45); ABG PH 7.37 (7.35-7.45); ABG PO2 103 mmHg (83-108); ABG TCO2 21 mmol/L (19-24); Allen Test Performed? no
[2024-09-02] MEDS: DILTIAZEM 125 MG in SODIUM CHLORIDE 0.9% 100 ML IV SCH (06:21)
[2024-09-02] MEDS: DILTIAZEM DRIP BOLUS FROM BAG 1 MG SOLN IV ONE (06:21)
[2024-09-02 06:56] LABS: Anisocytosis Moderate; Basophils % (A) 0 %; Eosinophils # (A) 0.1 k/uL (0-0.7); Eosinophils % (A) 4 %; HCT 23.7 % (34.0-46.0); HGB 7.5 gm/dL (11.4-16.0); Hypochromasia Moderate; Lymphocytes # (A) 0.3 k/uL (1.0-4.8); Lymphocytes % (A) 16 %; MCH 28.3 pg (25.0-35.0); MCHC 31.6 g/dL (31.0-37.0); MCV 89.5 fL (80.0-100.0); Mean Platelet Volume 10.7; Monocytes # (A) 0.1 k/uL (0-1.0); Monocytes % (A) 3 %; Neutrophils # (A) 1.3 k/uL (1.3-7.7); Neutrophils % (A) 75 %; RBC 2.64 m/uL (3.80-5.40); RDW 20.3 % (11.5-15.5); WBC 1.8 k/uL (3.8-10.6)
[2024-09-02 06:59] LABS: Platelet Count 77 k/uL (150-450)
[2024-09-02 07:08] LABS: Anion Gap 15 mmol/L; Blood Urea Nitrogen 84 mg/dL (7-17); Calcium 8.3 mg/dL (8.4-10.2); Carbon Dioxide 21 mmol/L (22-30); Chloride 96 mmol/L (98-107); Glucose 156 mg/dL (74-99); Potassium 4.4 mmol/L (3.5-5.1); Sodium 132 mmol/L (137-145)
[2024-09-02 07:13] LABS: Vancomycin,Random 17.3 ug/mL
[2024-09-02 07:14] LABS: African American GFR (CKD) 25 (>60 ml/min/1.73 sqM); Non-African American GFR(CKD) 22 (>60 ml/min/1.73 sqM)
--- NOTE | 2024-09-02 08:15 | P.CONS ---
History of Present Illness - Reason for Consult Consult date: 09/01/24 Fever Requesting physician: Nickie Lowry - Chief Complaint Fever x 5 days - History of Present Illness Patient is a 64-year-old female with a past medical history significant for COPD hypertension osteoarthritis end-stage renal disease on dialysis to the right subclavian permacatheter since May 2024 also with a history of multiple myeloma who is currently in the hospital for more than 10 days before this initial evaluation with initial presentation to the hospital on 08/21/2024 concerning for right lower extremity pain and trauma, patient presented to the hospital was afebrile she was not running any fever and initial evaluation including a femur hip pelvis x-ray were negative for any fracture did have a pelvic CT we did shows right inguinal mass lateral to the vascular structure appears homogeneous may be related to the large lymph node and he was hypodensity within the anterior left inguinal thigh musculature concerning hematoma abscess could be within the differential patient was initially treated on the floor however on August 23 patient did have acute respiratory failure requiring intubation at that time the patient was diagnosed with COVID-19 and the patient has been transferred to the ICU being managed by pulmonary services patient was afebrile initially started running a fever as of 08 28 at 2024 with a temperature of 102.1 F and the patient has been running a fever since then patient did not have any cultures done after she started running a fever and has been treated with the vancomycin initially Zosyn has been added on 08/30/2024 on 08/23/2024 she did have a positive blood culture with staph epi with repeat blood culture on 08/26/2024 has been negative, sputum culture has been negative infectious disease was consulted today regarding her fever patient remains to be intubated on the vent FiO2 is currently down to 50% no significant purulent secretion through the ET patient is hemodynamic stable not requiring any pressor support did not have any diarrhea or any issues with the peripheral IV most information has been obtained from review the chart talking nursing staff the patient is currently bit on the vent and cannot provide any history Review of Systems Positive points has been mentioned in HPI complete review could not be obtained because patient intubated on the vent Past Medical History Past Medical History: Cancer, Chest Pain / Angina, COPD, Hypertension, Osteoarthritis (OA), Renal Disease, Thyroid Disorder Additional Past Medical History / Comment(s): Hx racing heart, "have a bad left valve", bronchitis, sinus problems, thyroid nodules-benign, occasional lower back pain, hx anemia with , "too much protein in bone marrow", stage 5 kidney disease, "Need right hip replacement but can't have it due to kidneys." "Have a bad right knee too."; Multiple Myeloma, HD since May 2024; Covid 08/23/24 History of Any Multi-Drug Resistant Organisms: None Reported Past Surgical History: Cardiac Ablation, Hysterectomy, Orthopedic Surgery, Tubal Ligation Additional Past Surgical History / Comment(s): Cardiac ablation, L foot f racture/pinned, colonoscopies, right kidney biopsy. Past Anesthesia/Blood Transfusion Reactions: No Reported Reaction Additional Past Anesthesia/Blood Transfusion Reaction / Comm: Clausterphobic. Past Psychological History: No Psychological Hx Reported Additional Psychological History / Comment(s): Clausterphobic. Smoking Status: Former smoker Past Alcohol Use History: None Reported Additional Past Alcohol Use History / Comment(s): Started smoking in 1971, smoked 1/2 ppd, quit 01/05/22. Used to drink two 32 ounce beers per day, quit 01/01/24. Past Drug Use History: Marijuana Additional Drug Use History / Comment(s): Marijuana gummies, weed salves. Aware no use 24 hrs prior to procedure. - Past Family History Father Additional Family Medical History / Comment(s): Father is from an enlarged heart/iglesias's lung. Mother Family Medical History: No Reported History Medications and Allergies Home Medications Medication Instructions Recorded Confirmed Type Budesonide/Formoterol Fumarate 2 puff INHALATION RT-BID PRN 01/05/24 08/21/24 History [Breyna 80-4.5 Mcg Inhaler] Acetaminophen [Tylenol Extra 500 mg PO BID 05/11/24 08/21/24 History Strength] Acyclovir [Zovirax] 400 mg PO BID 08/21/24 08/21/24 History Ascorbic Acid [Vitamin C] 1,000 mg PO DAILY 08/21/24 08/21/24 History Aspirin EC [Ecotrin Low Dose] 81 mg PO DAILY 08/21/24 08/21/24 History Calcium Carbonate/Vitamin D3 1 tab PO DAILY 08/21/24 08/21/24 History [Calcium 600 mg-Vit D3 10 mcg (400 Unit)] Cholecalciferol [Vitamin D3 (125 125 mcg PO DAILY 08/21/24 08/21/24 History Mcg = 5000 Iu)] Cyanocobalamin [Vitamin B-12] 500 mcg PO DAILY 08/21/24 08/21/24 History Ferrous Sulfate [Feosol] 325 mg PO DAILY 08/21/24 08/21/24 History Folic Acid 0.8 mg PO DAILY 08/21/24 08/21/24 History Glucosam/Christiano-Msm1/C/Giovanny/Bosw 1 tab PO DAILY 08/21/24 08/21/24 History [Glucosamine-Chondroitin Tablet] Loratadine 10 mg PO DAILY 08/21/24 08/21/24 History Multivitamins, Thera [Multivitamin 1 tab PO DAILY 08/21/24 08/21/24 History (formulary)] [place]-3/Dha/Epa/Fish Oil [Fish Oil 1 cap PO DAILY 08/21/24 08/21/24 History 1,000 mg Softgel] Omeprazole 20 mg PO DAILY 08/21/24 08/21/24 History Vit C/E/Zn/Coppr/Lutein/Zeaxan 1 tab PO DAILY 08/21/24 08/21/24 History [Preservision Areds 2 Softgel] Vitamin E (Dl,Tocopheryl Acet) 400 unit PO DAILY 08/21/24 08/21/24 History [Vitamin E (400 Iu = 180 mg)] dexAMETHasone [Decadron] 8 mg PO DAILY 08/21/24 08/21/24 History Allergies Allergy/AdvReac Type Severity Reaction Status Date / Time bee venom protein (honey bee) Allergy Anaphylaxis Verified 08/21/24 10:40 chocolate Allergy Anaphylaxis Verified 08/21/24 19:54 codeine Allergy Anaphylaxis Verified 08/21/24 10:40 levofloxacin [From Levaquin] Allergy Unknown Verified 08/21/24 10:40 red dye Allergy Anaphylaxis Verified 08/21/24 10:40 strawberry Allergy Anaphylaxis Verified 08/21/24 10:40 tree nut [Nut] Allergy Anaphylaxis Verified 08/21/24 19:54 STEROIDS AdvReac Severe rage Uncoded 08/21/24 05:16 behavior-"almost killed my dog" Physical Exam Vitals: Vital Signs Temp Pulse Resp BP Pulse Ox FiO2 09/01/24 12:12 50 09/01/24 11:34 50 09/01/24 11:00 99.0 F 103 H 25 H 89/55 97 09/01/24 10:45 108 H 23 84/57 09/01/24 10:30 108 H 22 89/59 09/01/24 10:15 112 H 23 87/50 96 09/01/24 10:00 108 H 21 94/61 97 09/01/24 09:45 112 H 22 93/60 09/01/24 09:30 116 H 18 98/58 97 09/01/24 09:15 105 H 23 106/61 09/01/24 09:00 112 H 20 112/60 09/01/24 08:49 50 09/01/24 08:45 86 20 115/56 97 09/01/24 08:30 91 20 127/59 09/01/24 08:15 83 18 106/60 09/01/24 08:00 100.2 F H 78 22 111/58 94 L 40 09/01/24 07:45 80 21 106/60 09/01/24 07:30 82 22 112/60 09/01/24 07:15 79 22 114/63 93 L 09/01/24 07:00 84 22 09/01/24 06:45 82 20 09/01/24 06:30 78 22 09/01/24 06:15 74 23 94 L 09/01/24 06:00 75 20 09/01/24 05:45 66 22 09/01/24 05:30 68 20 95 09/01/24 05:15 65 20 95 09/01/24 05:00 68 20 95 09/01/24 04:45 71 23 95 09/01/24 04:30 67 22 95 09/01/24 04:15 69 21 94 L 09/01/24 04:00 99.3 F 66 16 95 50 09/01/24 03:51 50 09/01/24 03:45 65 20 94 L 09/01/24 03:34 50 09/01/24 03:30 72 20 94 L 09/01/24 03:15 75 21 93 L 09/01/24 03:00 87 28 H 93 L 09/01/24 02:45 78 22 93 L 09/01/24 02:30 84 22 93 L 09/01/24 02:15 76 23 93 L 09/01/24 02:00 80 20 93 L 09/01/24 01:45 73 22 93 L 09/01/24 01:30 71 23 93 L 09/01/24 01:15 69 21 93 L 09/01/24 01:00 64 21 93 L 09/01/24 00:45 65 21 95 09/01/24 00:30 63 22 94 L 09/01/24 00:15 64 18 94 L 09/01/24 00:13 50 09/01/24 00:00 99.5 F 65 21 94 L 50 08/31/24 23:45 64 23 94 L 08/31/24 23:30 75 22 94 L 08/31/24 23:15 62 21 95 08/31/24 23:10 50 08/31/24 23:09 50 08/31/24 23:05 66 22 96 08/31/24 23:00 61 21 96 08/31/24 22:45 61 22 95 08/31/24 22:30 61 22 95 08/31/24 22:15 62 22 95 08/31/24 22:00 66 20 95 08/31/24 21:45 63 21 95 08/31/24 21:30 62 21 96 08/31/24 21:15 64 21 96 08/31/24 21:00 61 23 96 08/31/24 20:45 61 21 96 08/31/24 20:43 50 08/31/24 20:30 65 23 97 08/31/24 20:15 69 22 96 08/31/24 20:00 97.8 F 68 21 97 50 08/31/24 19:45 70 18 97 08/31/24 19:42 50 08/31/24 19:37 50 08/31/24 19:30 59 L 20 98 08/31/24 19:15 62 22 08/31/24 19:00 60 21 105/60 96 50 08/31/24 18:45 61 23 101/60 96 08/31/24 18:30 62 20 105/55 96 08/31/24 18:15 63 22 106/61 96 08/31/24 18:00 66 22 100/62 95 08/31/24 17:45 63 22 107/60 95 50 08/31/24 17:30 61 20 113/57 08/31/24 17:15 63 100/65 95 08/31/24 17:00 63 21 115/62 95 50 08/31/24 16:45 64 104/61 95 08/31/24 16:30 66 112/81 96 08/31/24 16:15 71 98/56 96 08/31/24 16:00 97.8 F 64 22 109/61 94 L 50 08/31/24 15:45 63 106/61 95 08/31/24 15:42 50 08/31/24 15:30 66 95 50 08/31/24 15:15 66 124/68 08/31/24 15:00 68 20 95 50 08/31/24 14:45 65 99/52 95 08/31/24 14:30 67 95 08/31/24 14:15 65 101/57 95 08/31/24 14:00 70 23 100/52 95 08/31/24 13:45 71 90/55 94 L 08/31/24 13:30 73 105/57 94 L 08/31/24 13:15 75 95/56 93 L Intake and Output 08/31/24 09/01/24 09/01/24 22:59 06:59 14:59 Intake Total 687.306 701.496 503.803 Output Total 25 0 20 Balance 662.306 701.496 483.803 Intake: IV 208 208 130 .9NS Pressure Bag 48 30 24 Sodium Chloride 0.9% 500 160 160 100 ml 500 ml @ 20 mls/hr IV .Q24H [facility] Rx#:[id number] Vancomycin 1,000 mg In 18 6 Sodium Chloride 0.9% 250 ml @ 125 mls/hr IVPB ONCE ONE Rx#:[id number] Intake, IV Titration 99.306 113.496 143.803 Amount Norepinephrine 8 mg In 99.306 51.329 86.130 Sodium Chloride 0.9% 250 ml @ 0.03 MCG/KG/MIN 3. 106 mls/hr IV .Q24H [facility] Rx#:[id number] propofoL 1,000 mg In 62.167 57.673 Empty Bag 1 bag @ 15 MCG/ KG/MIN 4.815 mls/hr IV . [id number] [facility] Rx#:[id number] Tube Feeding 320 320 200 Other 60 60 30 Output: Urine 25 0 20 Other: Voiding Method Indwelling Catheter Indwelling Catheter Indwelling Catheter # Bowel Movements 1 Weight 61.1 kg ABP, PAP, CO, CI - Last 8 Hours Arterial Blood Pressure 88/53 Arterial Blood Pressure 81/50 Arterial Blood Pressure 91/51 Arterial Blood Pressure 105/55 Arterial Blood Pressure 101/55 Arterial Blood Pressure 107/56 Arterial Blood Pressure 101/52 Arterial Blood Pressure 111/57 Arterial Blood Pressure 113/58 Arterial Blood Pressure 132/60 Arterial Blood Pressure 96/51 Arterial Blood Pressure 136/54 Arterial Blood Pressure 106/51 Arterial Blood Pressure 119/51 Arterial Blood Pressure 115/50 Arterial Blood Pressure 108/48 Arterial Blood Pressure 105/51 Arterial Blood Pressure 104/49 Arterial Blood Pressure 104/55 Arterial Blood Pressure 120/51 Arterial Blood Pressure 96/50 Arterial Blood Pressure 88/54 Arterial Blood Pressure 93/51 Arterial Blood Pressure 94/51 GENERAL DESCRIPTION: Elderly female intubated on the vent HEENT: Shows Pallor , no scleral icterus. Oral mucous membrane is dry. NECK: Trachea central, no thyromegaly. LUNGS: Unlabored breathing. Decreased breath sounds at the base HEART: S1, S2, regular rate and rhythm. No loud murmur ABDOMEN: Soft, no tenderness , guarding or rigidity, no organomegaly EXTREMITIES: No edema of feet. SKIN: No rash, no masses palpable. NEUROLOGICAL: The patient is sedated on the [facility] Results CBC & Chem 7: 09/02/24 06:30 09/02/24 06:30 Labs: Abnormal Lab Results - Last 24 Hours (Table) 08/27/24 08/31/24 08/31/24 Range/Units 05:48 17:22 23:39 WBC (3.8-10.6) k/uL RBC (3.80-5.40) m/uL Hgb (11.4-16.0) gm/dL Hct (34.0-46.0) % RDW (11.5-15.5) % Plt Count (150-450) k/uL ABG O2 Saturation (94-97) % Hemoglobin (11.4-16.0) gm/dL Sodium (137-145) mmol/L Chloride (98-107) mmol/L Carbon Dioxide (22-30) mmol/L BUN (7-17) mg/dL Creatinine (0.52-1.04) mg/dL Glucose (74-99) mg/dL POC Glucose (mg/dL) 214 H 155 H (70-110) mg/dL ALT (4-34) U/L Total Protein (6.3-8.2) g/dL Albumin (3.5-5.0) g/dL Albumin (PEP) 1.98 L (3.80-4.90) g/dL Kgiqg-0-Aqvbgbkci 0.81 H (0.10-0.40) g/dL Mujtv-3-Xjulzbhdk 1.38 H (0.60-1.00) g/dL 09/01/24 09/01/24 09/01/24 Range/Units 04:28 04:28 05:35 WBC 2.2 L (3.8-10.6) k/uL RBC 2.58 L (3.80-5.40) m/uL Hgb 7.5 L (11.4-16.0) gm/dL Hct 23.0 L (34.0-46.0) % RDW 20.2 H (11.5-15.5) % Plt Count 92 L (150-450) k/uL ABG O2 Saturation 98.0 H (94-97) % Hemoglobin 7.3 L (11.4-16.0) gm/dL Sodium 134 L (137-145) mmol/L Chloride 96 L (98-107) mmol/L Carbon Dioxide 18 L (22-30) mmol/L BUN 117 H* (7-17) mg/dL Creatinine 3.37 H (0.52-1.04) mg/dL Glucose 148 H (74-99) mg/dL POC Glucose (mg/dL) (70-110) mg/dL ALT 53 H (4-34) U/L Total Protein 5.8 L (6.3-8.2) g/dL Albumin 2.4 L (3.5-5.0) g/dL Albumin (PEP) (3.80-4.90) g/dL Accqm-7-Odpiqrtfn (0.10-0.40) g/dL Hfmmx-7-Celyppahe (0.60-1.00) g/dL 09/01/24 Range/Units 06:08 WBC (3.8-10.6) k/uL RBC (3.80-5.40) m/uL Hgb (11.4-16.0) gm/dL Hct (34.0-46.0) % RDW (11.5-15.5) % Plt Count (150-450) k/uL ABG O2 Saturation (94-97) % Hemoglobin (11.4-16.0) gm/dL Sodium (137-145) mmol/L Chloride (98-107) mmol/L Carbon Dioxide (22-30) mmol/L BUN (7-17) mg/dL Creatinine (0.52-1.04) mg/dL Glucose (74-99) mg/dL POC Glucose (mg/dL) 160 H (70-110) mg/dL ALT (4-34) U/L Total Protein (6.3-8.2) g/dL Albumin (3.5-5.0) g/dL Albumin (PEP) (3.80-4.90) g/dL Locqh-0-Fyfnocnna (0.10-0.40) g/dL Wmziy-2-Fvjqwosjf (0.60-1.00) g/dL Microbiology - Last 24 Hours (Table) 08/26/24 10:57 Blood Culture - Final Blood Assessment and Plan (1) Fever Current Visit: Yes Status: Acute Code(s): R50.9 - FEVER, UNSPECIFIED SNOMED Code(s): 022545607 (2) Leukopenia Current Visit: Yes Status: Acute Code(s): D72.819 - DECREASED WHITE BLOOD CELL COUNT, UNSPECIFIED SNOMED Code(s): 21070741 (3) Sepsis Current Visit: Yes Status: Acute Code(s): A41.9 - SEPSIS, UNSPECIFIED ORGANISM SNOMED Code(s): 92835695 Plan: 1patient with sepsis in this patient who did have fever and leukopenia patient has been in the hospital for more than 10 days before this initial evaluation with initial presentation to hospital with right leg pain subsequently did have acute respiratory failure requiring intubation and admission to ICU on 08/23/2024 patient was afebrile initially started running a fever as of 08/28/2024 however no culture done at that point 2we will obtain blood cultures peripherally as well as from dialysis catheter, check sputum for Gram stain culture, a CRP procalcitonin urine culture as the patient did have a Escoto catheter and still makes urine to identify the possible source of this fever/infection 3patient is broadly covered with vancomycin and Zosyn will be continued for now in this patient who did have a history of end-stage renal disease and dose is being managed by pharmacy We will follow on clinical condition and cultures to further adjust medication if needed Thank you for this consultation we will follow the patient along with you Dictation was produced using [employer] dictation software. please excuse any g rammatical, word or spelling errors. Time with Patient: Greater than 30
--- NOTE | 2024-09-02 09:36 | XR ---
EXAMINATION TYPE: XR chest 1V portable DATE OF EXAM: 09/02/2024 6:52 AM COMPARISON: 09/01/2024 CLINICAL INDICATION: Female, 64 years old with history of infiltrates, TECHNIQUE: XR chest 1V portable view(s) obtained. FINDINGS: The heart size is normal. The pulmonary vasculature is somewhat prominent. Diffuse increased lung markings are present bilaterally. Correlate for pulmonary edema. Spiculated densities in the right apex. Follow-up recommended. There may be an underlying nodular den sity in the left base. Continued follow-up recommended endotracheal tube tip is 6.9 cm above the augustine na. Nasogastric tube transverses the thorax. Right central venous catheter is present tip in distal s uperior vena cava region. Left central venous catheter tip is in the mid superior vena cava region. IMPRESSION: 1. Scattered bilateral lung infiltrates, correlate for pulmonary edema. 2. Couple of nodular densities may be present discussed above. 3. Lines and catheters discussed above [facility], , 09/02/2024 9:34 AM
[2024-09-02] MEDS: VANCOMYCIN 1,000 MG in SODIUM CHLORIDE 0.9% 250 ML IVPB ONE (10:22)
--- NOTE | 2024-09-02 10:31 | P.PN ---
Subjective Progress Note Date: 09/02/24 PROGRESS NOTE The patient is a 63-year-old female who was admitted with symptoms of progressive dyspnea, significant right groin discomfort, has a history of multiple myeloma, end-stage renal disease, lung nodules and evidence of malignancy. On presentation she was in atrial flutter with rapid ventricular response. Yesterday she became more dyspneic requiring mechanical ventilation and was transferred to the ICU. She is intubated and sedated at this time. She was in sinus mechanism for a period of time but she is in atrial fibrillation at this point. There is no evidence of ventricular ectopic activity. In the past her echocardiogram showed a preserved systolic function with mild mitral and mild to moderate tricuspid regurgitation and moderate pulmonary hypertension. August 25: The patient remains intubated and sedated, receiving dialysis today. She is off of IV Cardizem because of pauses. She continues to be in atrial fibrillation with overall controlled ventricular response. She continues to be on norepinephrine. The plan is to continue intubation today and attempt weaning tomorrow. Echocardiogram showed an ejection fraction of 40 to 45% with mild to moderate tricuspid regurgitation August 26: She remains intubated and sedated, in sinus mechanism with frequent PACs. She c ontinues to be on norepinephrine, there is no evidence of ventricular tachycardia. She has been receiving hemodialysis. Continues to be on metoprolol tartrate, tolerating the treatment, off IV Cardizem 08/27 Patient remains intubated and sedated. Currently on 50% FiO2. Low-dose norepinephrine. He remains in sinus rhythm with PACs. Remains sedated on propofol. Hemoglobin down to 6.7 however no active source of bleeding per nursing. She has not been on any anticoagulation. 08/28 Patient with continued anemia 6.6. No significant source of bleeding. She did require increasing vasopressors and vasopressin is added and norepinephrine slightly increased. She did have more tachycardia and therefore Cardizem drip was switched to amiodarone drip. Remains on FiO2 50% on the ventilator. Und erwent HD yesterday. 08/29 Patient converted to normal sinus rhythm. Has been weaned off of vasopressors. Plan for hemodialysis tomorrow. On oral amiodarone. 08/30 Patient seen and examined. Remains on ventilator with FiO2 50% and PEEP of 6. Off of any days of pressors. Remains in normal sinus rhythm. 08/31 Patient has been in and out of A. fib and was in A. fib yesterday however converted back to sinus rhythm at approximately 3 AM. Heart rates in the low 100s. Underwent hemodialysis with 350 mL take it off yesterday. Remains on ventilator sedated. 09/01 Seen and examined. In Afib with CVR. On vent FiO2 50% and PEEP of 5. 09/02 Patient seen and examined. Patient remains intubated on mechanical ventilation. Patient went into A-fib with RVR last evening and was started on Cardizem bolus of 5 mg followed by 5 mg/h drip. Levophed is on a low-dose. Patient is on tube feedings. Patient received dialysis yesterday with minimal UF. There is no plan for additional dialysis at this time Gen: ill appearing LUNGS: Clear anteriorly HEART: Regular rate and rhythm, with extrasystole S1, S2. No S3. Systolic ejection murmur ABDOMEN: Soft, positive bowel sounds, no organomegaly EXTREMETIES: No edema, right inguinal mass IMPRESSION: 1. Acute respiratory failure with a combination of COVID infection, history of COPD and lung mass 2. Multiple myeloma 3. Paroxysmal atrial fibrillation and atrial flutter. Not anticoagulated because of severe anemia, back in sinus mechanism with multiple PACs. 4. Anemia most likely related to the multiple myeloma 5. End-stage renal disease on hemodialysis 6. Prior history of hypertension 7. Right groin mass could be related to her malignancy PLAN: Continue with oral amiodarone and Metoprolol 25 and Cardizem drip A-fib with RVR. Note that Cardizem drip was previously discontinued due to pauses. Due to She is in and out of A. fib however predominantly controlled. No anticoagulation given continued anemia. Hemodialysis per nephrology Nurse practitioner note has been reviewed, I agree with documented findings and plan of care. Patient was seen and examined. Objective - Vital Signs Vital signs: Vital Signs Temp 100.7 F H 09/02/24 04:00 Pulse 101 H 09/02/24 07:00 Resp 14 09/02/24 07:00 BP 101/56 09/02/24 07:00 Pulse Ox 99 09/02/24 07:00 FiO2 50 09/02/24 04:00 Intake & Output 09/01/24 09/02/24 09/02/24 18:59 06:59 18:59 Intake Total 1440.969 8398.285 66 Output Total 65 70 0 Balance 1609.940 4905.285 66 Weight 62.3 kg Intake: IV 412 412 26 .9NS Pressure Bag 66 72 6 Piperacillin-Tazobactam 3 100 100 .375 gm In Sodium Chloride 0.9% 100 ml @ 25 mls/hr IVPB Q12H [facility] Rx# :[id number] Sodium Chloride 0.9% 500 240 240 20 ml 500 ml @ 20 mls/hr IV .Q24H [facility] Rx#:[id number] Vancomycin 1,000 mg In 6 Sodium Chloride 0.9% 250 ml @ 125 mls/hr IVPB ONCE ONE Rx#:[id number] Intake, IV Titration 170.512 319.285 Amount Norepinephrine 8 mg In 112.839 184.839 Sodium Chloride 0.9% 250 ml @ 0.03 MCG/KG/MIN 3. 106 mls/hr IV .Q24H [facility] Rx#:[id number] propofoL 1,000 mg In 57.673 134.446 Empty Bag 1 bag @ 15 MCG/ KG/MIN 4.815 mls/hr IV . [id number] [facility] Rx#:[id number] Tube Feeding 400 480 40 Other 90 Output: Urine 65 70 0 Other: Voiding Method Indwelling Catheter Indwelling Catheter # Bowel Movements 1 1 ABP, PAP, CO, CI - Last Documented Arterial Blood Pressure 104/58 - Labs CBC & Chem 7: 09/02/24 06:30 09/02/24 06:30 Labs: Abnormal Lab Results - Last 24 Hours (Table) 09/01/24 09/01/24 09/01/24 Range/Units 04:28 04:28 13:55 WBC (3.8-10.6) k/uL RBC (3.80-5.40) m/uL Hgb (11.4-16.0) gm/dL Hct (34.0-46.0) % RDW (11.5-15.5) % Plt Count (150-450) k/uL Lymphocytes # (1.0-4.8) k/uL ABG pCO2 (35-45) mmHg ABG HCO3 (21-25) mmol/L ABG O2 Saturation (94-97) % Sodium (137-145) mmol/L Chloride (98-107) mmol/L Carbon Dioxide (22-30) mmol/L BUN (7-17) mg/dL Creatinine (0.52-1.04) mg/dL Glucose (74-99) mg/dL POC Glucose (mg/dL) (70-110) mg/dL Calcium (8.4-10.2) mg/dL C-Reactive Protein 21.1 H (<1.0) mg/dL Procalcitonin 15.30 H (0.02-0.50) ng/mL Urine Protein 1+ H (Negative) Urine Blood Moderate H (Negative) Urine RBC 24 H (0-5) /hpf 09/01/24 09/01/24 09/02/24 Range/Units 17:26 23:13 05:31 WBC (3.8-10.6) k/uL RBC (3.80-5.40) m/uL Hgb (11.4-16.0) gm/dL Hct (34.0-46.0) % RDW (11.5-15.5) % Plt Count (150-450) k/uL Lymphocytes # (1.0-4.8) k/uL ABG pCO2 (35-45) mmHg ABG HCO3 (21-25) mmol/L ABG O2 Saturation (94-97) % Sodium (137-145) mmol/L Chloride (98-107) mmol/L Carbon Dioxide (22-30) mmol/L BUN (7-17) mg/dL Creatinine (0.52-1.04) mg/dL Glucose (74-99) mg/dL POC Glucose (mg/dL) 184 H 172 H 141 H (70-110) mg/dL Calcium (8.4-10.2) mg/dL C-Reactive Protein (<1.0) mg/dL Procalcitonin (0.02-0.50) ng/mL Urine Protein (Negative) Urine Blood (Negative) Urine RBC (0-5) /hpf 09/02/24 09/02/24 09/02/24 Range/Units 05:33 06:30 06:30 WBC 1.8 L (3.8-10.6) k/uL RBC 2.64 L (3.80-5.40) m/uL Hgb 7.5 L (11.4-16.0) gm/dL Hct 23.7 L (34.0-46.0) % RDW 20.3 H (11.5-15.5) % Plt Count 77 L (150-450) k/uL Lymphocytes # 0.3 L (1.0-4.8) k/uL ABG pCO2 34 L (35-45) mmHg ABG HCO3 20 L (21-25) mmol/L ABG O2 Saturation 98.0 H (94-97) % Sodium 132 L (137-145) mmol/L Chloride 96 L (98-107) mmol/L Carbon Dioxide 21 L (22-30) mmol/L BUN 84 H (7-17) mg/dL Creatinine 2.30 H (0.52-1.04) mg/dL Glucose 156 H (74-99) mg/dL POC Glucose (mg/dL) (70-110) mg/dL Calcium 8.3 L (8.4-10.2) mg/dL C-Reactive Protein (<1.0) mg/dL Procalcitonin (0.02-0.50) ng/mL Urine Protein (Negative) Urine Blood (Negative) Urine RBC (0-5) /hpf
[2024-09-02 11:22] LABS: Glucose,Whole Blood 152 mg/dL (70-110)
--- NOTE | 2024-09-02 11:47 | P.PN ---
Subjective Progress Note Date: 09/02/24 This is a 63-year-old female patient with a known history of multiple myeloma receiving chemotherapy recently, suspected lung cancer with a PET positive right upper lobe 1.7 cm spiculated nodule, chronic obstructive pulmonary disease, chronic tobacco dependence, hypertension, hypothyroidism, end-stage renal disease receiving hemodialysis. She was admitted here on 08/21/2024 with complaints of right lower extremity pain. Been undergoing evaluation. Today on August 23, 2024 she had rapid response called on her twice for increasing shortness of breath and hypoxemia. She was subsequently transferred to the intensive care unit. She was placed on BiPAP 07/27 and 100% FiO2. She continued to do poorly and was subsequently intubated and placed on the mechanical ventilator. Currently on assist-control mode at a rate of 20, tidal volume 350, FiO2 100% and a PEEP of 5. She did undergo a left subclavian triple-lumen catheter placement and a right radial arterial line placement. Chest x-ray revealed satisfactory positions of the lines. Subtle scattered opacities may represent atypical pneumonia. Finding out today she is positive for COVID-19. Arterial blood gases post intubation revealed a PaO2 greater than 420, pCO2 of 60 and a pH of 7.28. FiO2 will be decreased accordingly. White count 8.5. Hemoglobin 8.7. Platelets 404. Sodium 129. Potassium 5.7. Bicarb 24. BUN 57. Creatinine 5.92. Glucose 82. She is sedated on propofol at 15 mcg/kg/min. The patient is seen today August 24, 2024 in follow-up in the intensive care unit. She remains intubated on the mechanical ventilator and assist-control mode at a rate of 20, tidal volume 350, FiO2 50% and a PEEP of 5. Morning blood gases revealed a PaO2 of 99. pCO2 48. pH 7.35. She is still requiring norepinephrine at 7 mcg/min. Cardizem drip at 5 mg an hour. Propofol at 40 mcg/kg/min. Lactated Ringer's at 100 mL/h. She is being nourished with vital HP at 10 mL/h with a goal of 46 mL/h. She remains on Symbicort, albuterol, Decadron. She is on Lovenox for DVT prophylaxis. Protonix for GI prophylaxis. Blood cultures now showing gram-positive cocci in clusters. Sputum culture pending. Vancomycin will be given x 1 until further cultures result. White count 6.6. Hemoglobin 7.0. Platelets 352. Sodium 132. Potassium 4.8. Bicarb 25. BUN 32. Creatinine 3.32. Glucose 108. The patient is seen today August 25, 2024 in follow-up in the intensive care unit. She remains intubated on the mechanical ventilator currently in settings of assist-control mode at a rate of 20, tidal volume 350, FiO2 50% and a PEEP of 5. Morning blood gases revealed a PaO2 of 91. pCO2 of 53 and a pH of 7.28. Chest x-ray reveals chronic and for somatic changes with mild cardiomegaly and patchy bilateral multifocal edema. No significant change. She remains on norepinephrine at 4 mcg/min. Cardizem drip is off. She was having sinus pauses yesterday. She has issues with intermittent atrial flutter. She is sedated on propofol at 40 mcg/kg/min. Lactated Ringer's at KVO. She is being nourished with vital HP at 10 mL/h. He received vancomycin x 1 for Staphylococcus epidermidis blood culture. Sputum culture revealed no growth. White count 12.9. Hemoglobin 7.5. Platelets 423. Sodium 133. Potassium 5.0. Bicarb 21. BUN 58. Creatinine 4.48. Glucose 134. She remains on Symbicort, albuterol, Decadron. Lovenox for DVT prophylaxis. Protonix for GI prophylaxis. The patient is seen today August 26, 2024 in follow-up in the intensive care unit. She remains intubated on mechanical ventilator and assist-control mode with a rate of 20, tidal valve 350, FiO2 50% and a PEEP of 5. Morning blood gases revealed a PaO2 of 90. pCO2 57 and a pH of 7.28. She did receive hemodialysis with 500 mL of fluid removed yesterday. She remains on norepinephrine at 1.7 mcg/min. Propofol at 50 mcg/kg/min. Lactated Ringer's at KVO. Vital HP at 10 mL an hour with a goal of 46 mL/h. She is continued with high residuals. May need Reglan if no improvement. She remains on albuterol, Symbicort, Decadron. Lovenox for DVT prophylaxis. Show chronic and for somatic changes and mild cardiomegaly with small to tiny left pleural effusion and patchy bilateral multifocal edema and/or acute infiltrates. No significant change. Blood culture was positive for Staphylococcus epidermidis. Sputum culture revealed no growth. White count 13.3. Hemoglobin 7.5. Platelets 364. Sodium 133. Potassium 5.1. Bicarb 24. BUN 41. Creatinine 2.91. Glucose 137. Currently in a +250 mL balance. On 08/27/2024, this patient is being seen for a follow-up. The patient remains intubated on the mechanical ventilator due to a combination of COPD and CHF exacerbation and COVID-19 infection. Noted the patient also has history of multiple myeloma receiving treatment on an outpatient basis. The patient has end-stage renal disease on hemodialysis and the patient also has history of hypertension hypothyroidism and during the course of the illness, the patient was also found to have a spiculated 1.7 cm right upper lobe lesion that was PET avid. This morning, the patient remains intubated on the mechanical ventilator. The patient is on assist-control mode at rate of 20, tidal volume of 350, FiO2 50% with a PEEP of 5. The patient remains sedated with propofol at 50 mc. The blood gases from today showed a pH of 7.26 with a pCO2 of 56 and pO2 of 70 and the chest x-ray shows stable perihilar and lower lobe pulmonary infiltrates. ET tube is around 5 cm above the danilo. The patient also has a dialysis permacath port in the right subclavian. Blood culture was positive for coagulase-negative staph and Staph epidermidis on 08/23/2024. Sputum culture was negative. The patient is currently on Decadron 8 mg p.o. daily Symbicort. No antibiotic coverage for now. is also on Lovenox for DVT prophylaxis at a dose of 30 mg subcu on a daily basis. Hemodynamically, the patient is requiring a low-dose norepinephrine for blood pressure support. Echocardiogram done on 08/23/2024 shows mild impairment of LV function with an EF of around 40 to 45% evidence of severe pulmonary hypertension and RV dilatation and estimated pulmonary artery pressures of around 56. Blood work from today shows a white cell count of 10.6, hemoglobin 7.2 and platelet count of 333. The sodium level is sodium is 135 at 135 with a potassium of 5.3, BUN 70 creatinine of 4.34. She is still on NE low dose at 0.04mc/kg/min. Her fluid balance is 1.4 L over the past 24 hours. Her last hemodialysis session was on 08/25/2024 with a total of 1 L of fluid was removed. She is on Vital HP at 30 cc. hr. Residuals are oin 250 cc range On 08/28/2023, the patient is being seen for a follow-up. Remains intubated on mechanical ventilator. Patient remains on propofol running at 45 mcg/kg/min. On today's evaluation, the patient is on assist-control mode with rate of 20, tidal volume of 450, FiO2 of 50% and the PEEP was brought up to 8 as the morning blood gases showed a pH of 7.38 with a pCO2 of 50 and pO2 of 66 and this was an FiO2 of 50%. The chest x-ray findings are essentially unchanged. The patient continues to have perihilar and lower lobe pulmonary infiltrates, patchy, slightly worse on the left and there is also some background cardiomegaly. The patient underwent hemodialysis yesterday. The patient is end-stage renal disease and she is currently on hemodialysis. She remains on norepinephrine which is running at 0.1 mcg/kg/min and the patient remains on vasopressin physiologic dose at 0.03 units. The patient has been having difficulties with atrial fibrillation since yesterday. Cardiology has been involved in the case and the patient was started on Cardizem drip and Cardizem drip is running at 5 mg an hour. Nevertheless, the patient continues to be in A-fib and she remains tachycardic. On a separate note, her hemoglobin is at 6.7. Still awaiting an appropriate manage for the packed RBC transfusion. The rest of the blood work shows a white cell count of 7.9, platelet count of 258, BUN is 48 with a creatinine of 2.8, sodium is at 132, chloride is 94 and a serum bicarb is at 27 at this point. Remains on Decadron 8 mg p.o. daily. Afebrile. Receiving enteral feeding for nutritional support. On 08/29/2024, the patient is being seen for a follow-up. The patient remains intubated on the mechanical ventilator. This morning, the patient is on propofol running at 30 mcg/kg/min. The patient is on mechanical ventilator assist-control mode rate of 20, tidal volume of 450, FiO2 50% with a PEEP of 8. Blood gas from today showed a pH of 7.27 with a pCO2 of 53 and pO2 of 97. CAT scan of the brain was negative. CAT scan of the chest was also completed yesterday and it showed interstitial infiltrates bilaterally consistent with COVID-19 pneumonia. At the same time, the patient had areas of consolidation lung bases left more than right highly suspicious for a bacterial infection. Based on that, the patient was started on a combination of Zosyn and vancomycin. The patient received a unit of packed RBC and the hemoglobin today is at 7.3. The patient remains on low-dose norepinephrine running at 0.08 mcg/kg/min. IV fluids are currently at KVO. Receiving vital high-protein at rate of 40 cc an hour. The patient encountered atrial fibrillation and she is currently back in normal sinus rhythm. She remains on amiodarone at 0.5 mg/min. Last hemodialysis session was on 08/27/2024. The white cell count is at 4.7, hemoglobin 7.3 and a platelet count of 188. Sodium is at 131 with a potassium level of 5.1, BUN is 81 with a creatinine of 3.3. No other significant events overnight. The patient is currently afebrile. Overnight, the patient was having low-grade fever On 08/30/2024, the patient is being seen for a follow-up. The patient remains intubated on the mechanical ventilator. This morning, the patient is on propofol running at 15 mcg/kg/min. She is on assist-control mode of mechanical ventilation and the patient is on assist-control rate of 20, tidal volume of 450, FiO2 50% with a PEEP of 6. Blood gas showed pH of 7.26 with a pCO2 of 57 and pO2 of 78. Chest x-ray shows stable, probably slightly improved perihilar and lower lobe pulmonary filtration as the patient is currently on a combination of Zosyn and vancomycin. The patient is also to undergo hemodialysis today. Hemodynamically, the patient is in normal sinus rhythm. The patient is on no pressors. The patient is dealing vital high-protein at rate of 40 cc an hour. Blood work from today shows a white cell count of 3.7 with a hemoglobin 8.2 and a platelet count of 143. The sodium is at 130, potassium is at 5.9 with a chloride of 93 and a bicarb of 19. BUN is 119 with a potassium level of 3.8. The patient remains on Decadron. Rest of the medications are essentially unchanged. The patient was given a sedation holiday yesterday and the patient was able to arouse and follows some simple commands. Not ready for extubation yet. Hemoglobin has been stable. No signs of any bleeding. 08/31/2024, the patient is being seen for a follow-up. The patient remains on propofol running at 25 mcg/kg/min. Breathing seems to be labile and the patient continues to have a high minute ventilation of around 16 to 17 L/min. She remains on assist-control mode of mechanical ventilation at rate of 20, tidal volume of 500, FiO2 50% with a PEEP of 6. Blood gas showed a pH of 7.37 with a pCO2 of 45 and pO2 of 74. The chest x-ray findings are stable and the patient stable bilateral pulmonary filtrates. The patient underwent hemodialysis yesterday and a total of 650 cc of fluid was removed. Postdialysis, the patient was placed on norepinephrine which is currently running at 0.06 mcg/kg/min. The patient is in a normal sinus rhythm and she converted as of 3 AM this morning. She is on vital high-protein at rate of 40 cc an hour. Afebrile for now. White cell count is down to 1.7 with a hemoglobin 7.7 and a platelet count of 106. Sodium is at 133, potassium is at 4.7, bicarb is 25 with a BUN of 19 and creatinine of 2.6. Vancomycin trough level was 18. On 09/01/2024, the patient is being seen for a follow-up. Calm and comfortable, remains on propofol at 20 mcg/kg/min. This morning, her breathing is less labored and her minute ventilation is down to 12. She is on a pressure control mode of mechanical ventilation at rate of 20, pressure control of 20, I, 0.8, FiO2 of 50% with a PEEP of 6. Chest x-ray findings are unchanged. The patient is to undergo another session of hemodialysis today. Blood gas from today shows a pH of 7.39 with a pCO2 of 39 and pO2 of 101. Cardiac rhythm is sinus and the patient remains on a combination of oral amiodarone and metoprolol. The patient remains on vital high-protein at rate of 40 cc an hour. No pressors for now. The white cell count of 2.2 renal cell 0.5 and a platelet count of 92. Sodium is 134, BUN is 117 and a creatinine of 3.37. Potassium level is at 5.1. Serum bicarb is at 18. Remains on Zosyn and vancomycin. Sputum cultures have been negative. Blood cultures been negative. Remains on Lovenox 30 mg subcu for DVT prophylaxis. Remains on Decadron 8 mg p.o. on a daily basis. On 09/02/2024, the patient is being seen for a follow-up. The patient remains on propofol running at 30 mcg/kg/min. Calm and comfortable on pressure control mode of mechanical ventilation at rate of 20, pressure control of 20, FiO2 50% with a PEEP of 5. Blood gas showed a pH of 7.37 with a pCO2 of 34 and pO2 of 103. Chest x-ray findings are stable. Remains on low-dose norepinephrine running at 0.1 mcg/kg/min. Hemodialysis performed yesterday a total of 650 cc of fluid was removed. She is in A-fib/flutter and the patient remains on oral amiodarone 400 mg p.o. twice a day and metoprolol 25 mg p.o. twice a day. She remains on Lovenox 30 mg subcu for DVT prophylaxis. She remains on Decadron. The blood work from today shows a white cell count of 1.8 with a hemoglobin of 7.5 and a platelet count of 77. Platelet counts are stable. BUN is 84 with a creatinine of 2.3 and a sodium levels at 132. Vancomycin level is at 17. Objective - Vital Signs Vital signs: Vital Signs Temp 100.9 F H 09/02/24 11:30 Pulse 105 H 09/02/24 11:30 Resp 23 09/02/24 11:30 BP 103/56 09/02/24 11:30 Pulse Ox 91 L 09/02/24 11:00 FiO2 40 09/02/24 11:00 Intake & Output 09/01/24 09/02/24 09/02/24 18:59 06:59 18:59 Intake Total 4124.988 7694.285 119.313 Output Total 65 70 0 Balance 4388.510 4513.285 119.313 Weight 62.3 kg Intake: IV 412 412 26 .9NS Pressure Bag 66 72 6 Piperacillin-Tazobactam 3 100 100 .375 gm In Sodium Chloride 0.9% 100 ml @ 25 mls/hr IVPB Q12H [facility] Rx# :[id number] Sodium Chloride 0.9% 500 240 240 20 ml 500 ml @ 20 mls/hr IV .Q24H [facility] Rx#:[id number] Vancomycin 1,000 mg In 6 Sodium Chloride 0.9% 250 ml @ 125 mls/hr IVPB ONCE ONE Rx#:[id number] Intake, IV Titration 170.512 319.285 53.313 Amount Norepinephrine 8 mg In 112.839 184.839 53.313 Sodium Chloride 0.9% 250 ml @ 0.03 MCG/KG/MIN 3. 106 mls/hr IV .Q24H [facility] Rx#:[id number] propofoL 1,000 mg In 57.673 134.446 Empty Bag 1 bag @ 15 MCG/ KG/MIN 4.815 mls/hr IV . [id number] [facility] Rx#:[id number] Tube Feeding 400 480 40 Other 90 Output: Urine 65 70 0 Other: Voiding Method Indwelling Catheter Indwelling Catheter # Bowel Movements 1 1 ABP, PAP, CO, CI - Last Documented Arterial Blood Pressure 110/56 - Exam GENERAL EXAM: Intubated, sedated, 63-year-old female, on the ventilator, in no apparent distress. HEAD: Normocephalic. EYES: Normal reaction of pupils, equal size. NOSE: Clear with pink turbinates. THROAT: Oral endotracheal and gastric tube secured in place. No erythema or exudates. NECK: No masses, no JVD. CHEST: No chest wall deformity. LUNGS: Equal air entry with no crackles, wheeze, rhonchi or dullness. CVS: S1 and S2 normal with no audible murmur, regular rhythm. ABDOMEN: No hepatosplenomegaly, normal bowel sounds, no guarding or rigidity. SPINE: No scoliosis or deformity SKIN: No rashes CENTRAL NERVOUS SYSTEM: No focal deficits, tone is normal in all 4 extremities. EXTREMITIES: There is no peripheral edema. No clubbing, no cyanosis. Peripheral pulses are intact. - Labs CBC & Chem 7: 09/02/24 06:30 09/02/24 06:30 Labs: Abnormal Lab Results - Last 24 Hours (Table) 09/01/24 09/01/24 09/01/24 Range/Units 04:28 04:28 13:55 WBC (3.8-10.6) k/uL RBC (3.80-5.40) m/uL Hgb (11.4-16.0) gm/dL Hct (34.0-46.0) % RDW (11.5-15.5) % Plt Count (150-450) k/uL Lymphocytes # (1.0-4.8) k/uL ABG pCO2 (35-45) mmHg ABG HCO3 (21-25) mmol/L ABG O2 Saturation (94-97) % Sodium (137-145) mmol/L Chloride (98-107) mmol/L Carbon Dioxide (22-30) mmol/L BUN (7-17) mg/dL Creatinine (0.52-1.04) mg/dL Glucose (74-99) mg/dL POC Glucose (mg/dL) (70-110) mg/dL Calcium (8.4-10.2) mg/dL C-Reactive Protein 21.1 H (<1.0) mg/dL Procalcitonin 15.30 H (0.02-0.50) ng/mL Urine Protein 1+ H (Negative) Urine Blood Moderate H (Negative) Urine RBC 24 H (0-5) /hpf 09/01/24 09/01/24 09/02/24 Range/Units 17:26 23:13 05:31 WBC (3.8-10.6) k/uL RBC (3.80-5.40) m/uL Hgb (11.4-16.0) gm/dL Hct (34.0-46.0) % RDW (11.5-15.5) % Plt Count (150-450) k/uL Lymphocytes # (1.0-4.8) k/uL ABG pCO2 (35-45) mmHg ABG HCO3 (21-25) mmol/L ABG O2 Saturation (94-97) % Sodium (137-145) mmol/L Chloride (98-107) mmol/L Carbon Dioxide (22-30) mmol/L BUN (7-17) mg/dL Creatinine (0.52-1.04) mg/dL Glucose (74-99) mg/dL POC Glucose (mg/dL) 184 H 172 H 141 H (70-110) mg/dL Calcium (8.4-10.2) mg/dL C-Reactive Protein (<1.0) mg/dL Procalcitonin (0.02-0.50) ng/mL Urine Protein (Negative) Urine Blood (Negative) Urine RBC (0-5) /hpf 09/02/24 09/02/24 09/02/24 Range/Units 05:33 06:30 06:30 WBC 1.8 L (3.8-10.6) k/uL RBC 2.64 L (3.80-5.40) m/uL Hgb 7.5 L (11.4-16.0) gm/dL Hct 23.7 L (34.0-46.0) % RDW 20.3 H (11.5-15.5) % Plt Count 77 L (150-450) k/uL Lymphocytes # 0.3 L (1.0-4.8) k/uL ABG pCO2 34 L (35-45) mmHg ABG HCO3 20 L (21-25) mmol/L ABG O2 Saturation 98.0 H (94-97) % Sodium 132 L (137-145) mmol/L Chloride 96 L (98-107) mmol/L Carbon Dioxide 21 L (22-30) mmol/L BUN 84 H (7-17) mg/dL Creatinine 2.30 H (0.52-1.04) mg/dL Glucose 156 H (74-99) mg/dL POC Glucose (mg/dL) (70-110) mg/dL Calcium 8.3 L (8.4-10.2) mg/dL C-Reactive Protein (<1.0) mg/dL Procalcitonin (0.02-0.50) ng/mL Urine Protein (Negative) Urine Blood (Negative) Urine RBC (0-5) /hpf 09/02/24 Range/Units 11:19 WBC (3.8-10.6) k/uL RBC (3.80-5.40) m/uL Hgb (11.4-16.0) gm/dL Hct (34.0-46.0) % RDW (11.5-15.5) % Plt Count (150-450) k/uL Lymphocytes # (1.0-4.8) k/uL ABG pCO2 (35-45) mmHg ABG HCO3 (21-25) mmol/L ABG O2 Saturation (94-97) % Sodium (137-145) mmol/L Chloride (98-107) mmol/L Carbon Dioxide (22-30) mmol/L BUN (7-17) mg/dL Creatinine (0.52-1.04) mg/dL Glucose (74-99) mg/dL POC Glucose (mg/dL) 152 H (70-110) mg/dL Calcium (8.4-10.2) mg/dL C-Reactive Protein (<1.0) mg/dL Procalcitonin (0.02-0.50) ng/mL Urine Protein (Negative) Urine Blood (Negative) Urine RBC (0-5) /hpf Assessment and Plan Plan: Acute hypoxemic respiratory failure suspect secondary to an acute exacerbation of chronic obstructive pulmonary disease and acute exacerbation of chronic systolic congestive heart failure, CoVID infection. CAT scan of the chest was completed on 08/28/2024 and the findings are consistent with COVID-19 related pneumonia and the patient had patchy areas of consolidation in the lung bases left more than right suggestive of a bacterial infection based on that the patient was started on a combination of Zosyn and vancomycin. The patient remains on steroids. The chest x-ray remains unchanged and the patient has stable bilateral pulmonary filtrates. Antibiotics are still being given in combination with steroids. Patient is currently on a pressure control mode of mechanical ventilation. There is improvement in oxygenation and acid-base status. Minute ventilation is lower compared to yesterday. Chest x-ray findings remain stable. Low-grade fever, currently afebrile Hypotension, recovered currently low-dose pressors, norepinephrine running at 0.1 mcg/kg/min COVID-19 infection and possible COVID-pneumonia, currently on Decadron History of multiple myeloma receiving treatment as recently as July 2024, and the patient has been maintained on Revlimid that was started on 06/12/2024 with daratumumab, completed total of 3 cycles and the Velcade being held since 08/03/2024 due to cytopenias. The patient currently has pancytopenia. CHF with mild impairment of LV function with an ejection fraction of 40 to 45% and RV dilatation with moderate to severe pulm hypertension with a PA pressure estimated to be at the 56 based on echocardiogram that was done on 08/24/2024. Right upper lobe 1.7 cm spiculated lesion, PET positive History of chronic tobacco dependence Hypertension End-stage renal disease receiving hemodialysis, maintained on hemodialysis on Tuesday and Saturdays via permacath. Last hemodialysis was performed on 08/30/2024 with a total of 650 cc of ultrafiltration Hypothyroidism Leg pain initially causing this admission on 08/21/2024, the patient has history of chronic right hip pain and pain in the groin radiating to the right lower extremity and lateral hip. Right femur/hip and pelvic x-ray showed moderate degenerative changes. Bone scan on 08/09/2024 showed no hip fracture and no abnormal uptake to suggest any other abnormalities Such as osseous metastases. Anemia of chronic disease in addition to multiple myeloma Plan: Continue mechanical ventilation with a pressure control of 20 and rate of 20 and a nighttime of 0.9. PEEP will be kept at 5 with an FiO2 of 50%. Dropped FiO2 to 40% Hemodialysis performed on 08/30/2024, another session of hemodialysis to be done on 09/01/2024 CAT scan of the chest, no contrast, was noted and the patient is currently on broad-spectrum antibiotics in combination with Decadron. Continue combination of Zosyn and vancomycin Chest x-ray findings showed stable bilateral pulmonary infiltrates. Continue Decadron Continue amiodarone 400 mg p.o. twice a day Continue metoprolol 25 mg twice daily Cardizem drip at 5 mg an hour Current rhythm is sinus Transfused with a unit of packed RBC on 08/28/2024 Keep the patient sedated on propofol, sedation holiday was given a 08/30/2024 with appropriate arousal. Another sedation holiday will be done and will check weaning parameters and assess readiness to wean. Continue vital HP for nourishment Hemodialysis per nephrology Will continue to follow. Condition remains critical. Critical care evaluation , done in >30 min Time with Patient: Greater than 30
--- NOTE | 2024-09-02 11:55 | P.PN ---
Subjective Patient is seen for follow-up for end-stage renal disease. Patient remains on the vent. FiO2 at 50%. Status post hemodialysis yesterday with no UF. Levophed is almost off. Diarrhea noted today. Objective - Vital Signs Vital signs: Vital Signs Temp 100.9 F H 09/02/24 11:30 Pulse 105 H 09/02/24 11:30 Resp 23 09/02/24 11:30 BP 103/56 09/02/24 11:30 Pulse Ox 91 L 09/02/24 11:00 FiO2 40 09/02/24 11:00 Intake & Output 09/01/24 09/02/24 09/02/24 18:59 06:59 18:59 Intake Total 4200.699 6929.285 119.313 Output Total 65 70 0 Balance 1363.424 6914.285 119.313 Weight 62.3 kg Intake: IV 412 412 26 .9NS Pressure Bag 66 72 6 Piperacillin-Tazobactam 3 100 100 .375 gm In Sodium Chloride 0.9% 100 ml @ 25 mls/hr IVPB Q12H [facility] Rx# :[id number] Sodium Chloride 0.9% 500 240 240 20 ml 500 ml @ 20 mls/hr IV .Q24H [facility] Rx#:[id number] Vancomycin 1,000 mg In 6 Sodium Chloride 0.9% 250 ml @ 125 mls/hr IVPB ONCE ONE Rx#:[id number] Intake, IV Titration 170.512 319.285 53.313 Amount Norepinephrine 8 mg In 112.839 184.839 53.313 Sodium Chloride 0.9% 250 ml @ 0.03 MCG/KG/MIN 3. 106 mls/hr IV .Q24H [facility] Rx#:[id number] propofoL 1,000 mg In 57.673 134.446 Empty Bag 1 bag @ 15 MCG/ KG/MIN 4.815 mls/hr IV . [id number] [facility] Rx#:[id number] Tube Feeding 400 480 40 Other 90 Output: Urine 65 70 0 Other: Voiding Method Indwelling Catheter Indwelling Catheter # Bowel Movements 1 1 ABP, PAP, CO, CI - Last Documented Arterial Blood Pressure 110/56 - Exam Patient is sedated and intubated Edema noted in the lower extremities and upper thighs. She is currently being cleaned - Labs CBC & Chem 7: 09/02/24 06:30 09/02/24 06:30 Labs: Abnormal Lab Results - Last 24 Hours (Table) 09/01/24 09/01/24 09/01/24 Range/Units 04:28 04:28 13:55 WBC (3.8-10.6) k/uL RBC (3.80-5.40) m/uL Hgb (11.4-16.0) gm/dL Hct (34.0-46.0) % RDW (11.5-15.5) % Plt Count (150-450) k/uL Lymphocytes # (1.0-4.8) k/uL ABG pCO2 (35-45) mmHg ABG HCO3 (21-25) mmol/L ABG O2 Saturation (94-97) % Sodium (137-145) mmol/L Chloride (98-107) mmol/L Carbon Dioxide (22-30) mmol/L BUN (7-17) mg/dL Creatinine (0.52-1.04) mg/dL Glucose (74-99) mg/dL POC Glucose (mg/dL) (70-110) mg/dL Calcium (8.4-10.2) mg/dL C-Reactive Protein 21.1 H (<1.0) mg/dL Procalcitonin 15.30 H (0.02-0.50) ng/mL Urine Protein 1+ H (Negative) Urine Blood Moderate H (Negative) Urine RBC 24 H (0-5) /hpf 09/01/24 09/01/24 09/02/24 Range/Units 17:26 23:13 05:31 WBC (3.8-10.6) k/uL RBC (3.80-5.40) m/uL Hgb (11.4-16.0) gm/dL Hct (34.0-46.0) % RDW (11.5-15.5) % Plt Count (150-450) k/uL Lymphocytes # (1.0-4.8) k/uL ABG pCO2 (35-45) mmHg ABG HCO3 (21-25) mmol/L ABG O2 Saturation (94-97) % Sodium (137-145) mmol/L Chloride (98-107) mmol/L Carbon Dioxide (22-30) mmol/L BUN (7-17) mg/dL Creatinine (0.52-1.04) mg/dL Glucose (74-99) mg/dL POC Glucose (mg/dL) 184 H 172 H 141 H (70-110) mg/dL Calcium (8.4-10.2) mg/dL C-Reactive Protein (<1.0) mg/dL Procalcitonin (0.02-0.50) ng/mL Urine Protein (Negative) Urine Blood (Negative) Urine RBC (0-5) /hpf 09/02/24 09/02/24 09/02/24 Range/Units 05:33 06:30 06:30 WBC 1.8 L (3.8-10.6) k/uL RBC 2.64 L (3.80-5.40) m/uL Hgb 7.5 L (11.4-16.0) gm/dL Hct 23.7 L (34.0-46.0) % RDW 20.3 H (11.5-15.5) % Plt Count 77 L (150-450) k/uL Lymphocytes # 0.3 L (1.0-4.8) k/uL ABG pCO2 34 L (35-45) mmHg ABG HCO3 20 L (21-25) mmol/L ABG O2 Saturation 98.0 H (94-97) % Sodium 132 L (137-145) mmol/L Chloride 96 L (98-107) mmol/L Carbon Dioxide 21 L (22-30) mmol/L BUN 84 H (7-17) mg/dL Creatinine 2.30 H (0.52-1.04) mg/dL Glucose 156 H (74-99) mg/dL POC Glucose (mg/dL) (70-110) mg/dL Calcium 8.3 L (8.4-10.2) mg/dL C-Reactive Protein (<1.0) mg/dL Procalcitonin (0.02-0.50) ng/mL Urine Protein (Negative) Urine Blood (Negative) Urine RBC (0-5) /hpf 09/02/24 Range/Units 11:19 WBC (3.8-10.6) k/uL RBC (3.80-5.40) m/uL Hgb (11.4-16.0) gm/dL Hct (34.0-46.0) % RDW (11.5-15.5) % Plt Count (150-450) k/uL Lymphocytes # (1.0-4.8) k/uL ABG pCO2 (35-45) mmHg ABG HCO3 (21-25) mmol/L ABG O2 Saturation (94-97) % Sodium (137-145) mmol/L Chloride (98-107) mmol/L Carbon Dioxide (22-30) mmol/L BUN (7-17) mg/dL Creatinine (0.52-1.04) mg/dL Glucose (74-99) mg/dL POC Glucose (mg/dL) 152 H (70-110) mg/dL Calcium (8.4-10.2) mg/dL C-Reactive Protein (<1.0) mg/dL Procalcitonin (0.02-0.50) ng/mL Urine Protein (Negative) Urine Blood (Negative) Urine RBC (0-5) /hpf Assessment and Plan Assessment: 1. End-stage renal disease on hemodialysis via right IJ permacath. 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 2. Right leg pain with soft tissue mass identified on pelvic CT which suggests an enlarged lymph node 3. Anemia, multifactorial associated with underlying multiple myeloma, chemotherapy and renal failure 4. Pulmonary nodule/mass 5. Volume overload 6. Acute hypoxic respiratory failure secondary to COVID pneumonia 7. A-fib with RVR 8. Hyperkalemia improved with dialysis. Plan: Hemodialysis in a.m. with UF of 0.5 to 1 L
--- NOTE | 2024-09-02 13:11 | P.PN ---
Subjective Progress Note Date: 09/02/24 Principal diagnosis: Reason for follow-up is fever Patient is a 64-year-old female with a past medical history significant for COPD hypertension osteoarthritis end-stage renal disease on dialysis to the right subclavian permacatheter since May 2024 initially presented to hospital with right leg pain subsequently did have acute respiratory failure requiring intubation tested positive for COVID-19 starting a fever on 08/28/2024 prompted this consultation on 09/01/2024 On today's visit that is 09/02/2024, Patient did spike a fever this morning of 101.1 F patient is requiring low-dose pressor support as reported by the nursing staff she remains to be debated on the vent FiO2 of 40% no significant purulent secretion through the ET or diarrhea reported. Patient white count is 1.8, creatinine is 2.30 UA has been negative Vanco 17.3 Objective - Vital Signs Vital signs: Vital Signs Temp 100.9 F H 09/02/24 11:30 Pulse 101 H 09/02/24 13:00 Resp 25 H 09/02/24 13:00 BP 94/56 09/02/24 13:00 Pulse Ox 92 L 09/02/24 13:00 FiO2 40 09/02/24 13:00 Intake & Output 09/01/24 09/02/24 09/02/24 18:59 06:59 18:59 Intake Total 8843.248 8433.285 879.891 Output Total 65 70 35 Balance 5781.080 0287.285 844.891 Weight 62.3 kg Intake: IV 412 412 432 .9NS Pressure Bag 66 72 42 Piperacillin-Tazobactam 3 100 100 .375 gm In Sodium Chloride 0.9% 100 ml @ 25 mls/hr IVPB Q12H [facility] Rx# :[id number] Sodium Chloride 0.9% 500 240 240 140 ml 500 ml @ 20 mls/hr IV .Q24H [facility] Rx#:[id number] Vancomycin 1,000 mg In 250 Sodium Chloride 0.9% 250 ml @ 125 mls/hr IVPB ONCE ONE Rx#:[id number] Vancomycin 1,000 mg In 6 Sodium Chloride 0.9% 250 ml @ 125 mls/hr IVPB ONCE ONE Rx#:[id number] Intake, IV Titration 170.512 319.285 107.891 Amount Norepinephrine 8 mg In 112.839 184.839 53.313 Sodium Chloride 0.9% 250 ml @ 0.03 MCG/KG/MIN 3. 106 mls/hr IV .Q24H [facility] Rx#:[id number] propofoL 1,000 mg In 57.673 134.446 54.578 Empty Bag 1 bag @ 15 MCG/ KG/MIN 4.815 mls/hr IV . [id number] [facility] Rx#:[id number] Tube Feeding 400 480 280 Other 90 60 Output: Urine 65 70 35 Other: Voiding Method Indwelling Catheter Indwelling Catheter # Bowel Movements 1 1 1 ABP, PAP, CO, CI - Last Documented Arterial Blood Pressure 104/53 - Exam GENERAL DESCRIPTION: An elderly female intubated on the vent RESPIRATORY SYSTEM: Unlabored breathing , decreased breath sounds at bases HEART: S1 S2 regular rate and rhythm , ABDOMEN: Soft , no tenderness EXTREMITIES: No edema feet - Labs CBC & Chem 7: 09/02/24 06:30 09/02/24 06:30 Labs: Abnormal Lab Results - Last 24 Hours (Table) 09/01/24 09/01/24 09/01/24 Range/Units 04:28 04:28 13:55 WBC (3.8-10.6) k/uL RBC (3.80-5.40) m/uL Hgb (11.4-16.0) gm/dL Hct (34.0-46.0) % RDW (11.5-15.5) % Plt Count (150-450) k/uL Lymphocytes # (1.0-4.8) k/uL ABG pCO2 (35-45) mmHg ABG HCO3 (21-25) mmol/L ABG O2 Saturation (94-97) % Sodium (137-145) mmol/L Chloride (98-107) mmol/L Carbon Dioxide (22-30) mmol/L BUN (7-17) mg/dL Creatinine (0.52-1.04) mg/dL Glucose (74-99) mg/dL POC Glucose (mg/dL) (70-110) mg/dL Calcium (8.4-10.2) mg/dL C-Reactive Protein 21.1 H (<1.0) mg/dL Procalcitonin 15.30 H (0.02-0.50) ng/mL Urine Protein 1+ H (Negative) Urine Blood Moderate H (Negative) Urine RBC 24 H (0-5) /hpf 09/01/24 09/01/24 09/02/24 Range/Units 17:26 23:13 05:31 WBC (3.8-10.6) k/uL RBC (3.80-5.40) m/uL Hgb (11.4-16.0) gm/dL Hct (34.0-46.0) % RDW (11.5-15.5) % Plt Count (150-450) k/uL Lymphocytes # (1.0-4.8) k/uL ABG pCO2 (35-45) mmHg ABG HCO3 (21-25) mmol/L ABG O2 Saturation (94-97) % Sodium (137-145) mmol/L Chloride (98-107) mmol/L Carbon Dioxide (22-30) mmol/L BUN (7-17) mg/dL Creatinine (0.52-1.04) mg/dL Glucose (74-99) mg/dL POC Glucose (mg/dL) 184 H 172 H 141 H (70-110) mg/dL Calcium (8.4-10.2) mg/dL C-Reactive Protein (<1.0) mg/dL Procalcitonin (0.02-0.50) ng/mL Urine Protein (Negative) Urine Blood (Negative) Urine RBC (0-5) /hpf 09/02/24 09/02/24 09/02/24 Range/Units 05:33 06:30 06:30 WBC 1.8 L (3.8-10.6) k/uL RBC 2.64 L (3.80-5.40) m/uL Hgb 7.5 L (11.4-16.0) gm/dL Hct 23.7 L (34.0-46.0) % RDW 20.3 H (11.5-15.5) % Plt Count 77 L (150-450) k/uL Lymphocytes # 0.3 L (1.0-4.8) k/uL ABG pCO2 34 L (35-45) mmHg ABG HCO3 20 L (21-25) mmol/L ABG O2 Saturation 98.0 H (94-97) % Sodium 132 L (137-145) mmol/L Chloride 96 L (98-107) mmol/L Carbon Dioxide 21 L (22-30) mmol/L BUN 84 H (7-17) mg/dL Creatinine 2.30 H (0.52-1.04) mg/dL Glucose 156 H (74-99) mg/dL POC Glucose (mg/dL) (70-110) mg/dL Calcium 8.3 L (8.4-10.2) mg/dL C-Reactive Protein (<1.0) mg/dL Procalcitonin (0.02-0.50) ng/mL Urine Protein (Negative) Urine Blood (Negative) Urine RBC (0-5) /hpf 09/02/24 Range/Units 11:19 WBC (3.8-10.6) k/uL RBC (3.80-5.40) m/uL Hgb (11.4-16.0) gm/dL Hct (34.0-46.0) % RDW (11.5-15.5) % Plt Count (150-450) k/uL Lymphocytes # (1.0-4.8) k/uL ABG pCO2 (35-45) mmHg ABG HCO3 (21-25) mmol/L ABG O2 Saturation (94-97) % Sodium (137-145) mmol/L Chloride (98-107) mmol/L Carbon Dioxide (22-30) mmol/L BUN (7-17) mg/dL Creatinine (0.52-1.04) mg/dL Glucose (74-99) mg/dL POC Glucose (mg/dL) 152 H (70-110) mg/dL Calcium (8.4-10.2) mg/dL C-Reactive Protein (<1.0) mg/dL Procalcitonin (0.02-0.50) ng/mL Urine Protein (Negative) Urine Blood (Negative) Urine RBC (0-5) /hpf Assessment and Plan (1) Fever Current Visit: Yes Status: Acute Code(s): R50.9 - FEVER, UNSPECIFIED SNOMED Code(s): 746577032 (2) Leukopenia Current Visit: Yes Status: Acute Code(s): D72.819 - DECREASED WHITE BLOOD CELL COUNT, UNSPECIFIED SNOMED Code(s): 60479476 (3) Sepsis Current Visit: Yes Status: Acute Code(s): A41.9 - SEPSIS, UNSPECIFIED ORGANISM SNOMED Code(s): 04258932 Plan: 1patient with sepsis in this patient who did have fever and leukopenia patient has been in the hospital for more than 10 days before this initial evaluation with initial presentation to hospital with right leg pain subsequently did have acute respiratory failure requiring intubation and admission to ICU on 08/23/2024 patient was afebrile initially started running a fever as of 08/28/2024 however no culture done at that point 2blood culture has been obtained from the dialysis catheter but if any results are currently positive UA has been negative inflammatory markers are pending 3we will recommend discontinuation of the left subclavian triple-lumen after obtaining a PICC line tomorrow and may benefit from change of her art line discussed with the nursing staff 4for now continue vancomycin and Zosyn while waiting for the culture to finalize Dictation was produced using [employer] dictation software. please excuse any gramm atical, word or spelling errors. Time with Patient: Less than 30
--- NOTE | 2024-09-02 14:15 | P.PN ---
Subjective Progress Note Date: 09/02/24 Patient is evaluated today in the intensive care unit currently intubated and sedated on the mechanical ventilator with an FiO2 of 50%, PEEP of 6. Patient continues to have intermittent fevers with a Tmax of 102.1 in the last 24 hours. Patient has been continued on a course of antibiotic coverage with IV vancomycin and IV Zosyn patient is also on oral acyclovir. Does have a history of multiple myeloma. Found to be COVID-positive and was continued on oral dexamethasone. Due to the continued temps infectious disease was consulted for further recommendations and evaluation. Patient does have hemodialysis access through a right sided perm a cath. Blood cultures were requested. Chest x-ray today reveals patchy bilateral lung infiltrates stable with an irregular density in the right upper lobe. Labs reveal a white blood cell count of 2.2, hemoglobin 7.5, platelet count of 92, sodium of 134 potassium 5.1, BUN of 117 creatinine of 3.37, AST 18 ALT 53, alk phos 93. 09/02/2024 . Patient is evaluated in follow-up in the intensive care unit. Patient remains intubated on the mechanical ventilator. Patient underwent hemodialysis yesterday. Labs today reveal a white blood cell count of 1.8, hemoglobin 7.5, platelet count of 77. Sodium of 132, BUN of 84 creatinine of 2.30, Pro-Reinier is improved at 15.30. Blood cultures were taken from the hemodialysis port and infectious disease is now following. Patient continues on IV Zosyn. Patient was found to have an elevated heart rate and atrial fibrillation with rapid ventricular rate has been continued on IV Cardizem running at 5 mL/h. Chest x- ray today reveals scattered bilateral lung infiltrates correlate for pulmonary edema. He is on oral amiodarone and oral metoprolol. She is on a small dose of Levophed. She is currently sedated with propofol. Unable to complete review of systems as patient is intubated and sedated in the ICU. PHYSICAL EXAMINATION: GENERAL: The patient is sedated and on the ventilator not in any acute distress. Well developed, well nourished. HEENT: Pupils are round and equally reacting to light. EOMI. No scleral icterus. No conjunctival pallor. Normocephalic, atraumatic. No pharyngeal erythema. No thyromegaly. CARDIOVASCULAR: S1 and S2 present. No murmurs, rubs, or gallops. PULMONARY: Chest is clear to auscultation, no wheezing or crackles. ABDOMEN: Soft, nontender, nondistended, normoactive bowel sounds. No palpable organomegaly. MUSCULOSKELETAL: No joint swelling or deformity. EXTREMITIES: No cyanosis, clubbing, or pedal edema. Nonpalpable dorsalis pedis pulses. Fingers and toes are dusky. NEUROLOGICAL: Patient is sedated. SKIN: No rashes. Assessment and plan Acute hypoxic respiratory failure requiring mechanical intubation multifactorial from COVID, COPD COVID-19 pneumonia Acute COPD exacerbation Acute on chronic systolic dysfunction Hypotensive shock requiring vasopressor support Paroxysmal atrial fibrillation currently not anticoagulated due to the anemia End-stage renal disease maintained on hemodialysis Multiple myeloma and pancytopenia Chronic right hip pain Hypothyroidism Former smoker GI prophylaxis DVT prophylaxis: Lovenox Full Code Plan Mechanical ventilator per director of operations for therapy Continue cardiac telemetry Patient is on amiodarone and metoprolol for rate control Continues on IV Cardizem. Continue antibiotics Continue oral dexamethasone Infectious disease consultation requested Repeat blood cultures taken from a hemodialysis port Nephrology on consultation. Patient maintained on hemodialysis. Repeat labs in the AM The impression and plan of care has been dictated by Nickie Lowry Nurse Practitioner as directed. Dr. Sylvester MD I have performed a history and physical examination and medical decision making of this patient, discussed the same with the dictator, and agree with the dictators assessment and plan as written, documented as a scribe. Based on total visit time, I have performed more than 50% of this visit. Objective - Vital Signs Vital signs: Vital Signs Temp 100.7 F H 09/02/24 04:00 Pulse 101 H 09/02/24 07:00 Resp 14 09/02/24 07:00 BP 101/56 09/02/24 07:00 Pulse Ox 99 09/02/24 07:00 FiO2 50 09/02/24 04:00 Intake & Output 09/01/24 09/02/24 09/02/24 18:59 06:59 18:59 Intake Total 4882.061 4460.285 66 Output Total 65 70 0 Balance 7460.678 7333.285 66 Weight 62.3 kg Intake: IV 412 412 26 .9NS Pressure Bag 66 72 6 Piperacillin-Tazobactam 3 100 100 .375 gm In Sodium Chloride 0.9% 100 ml @ 25 mls/hr IVPB Q12H [facility] Rx# :[id number] Sodium Chloride 0.9% 500 240 240 20 ml 500 ml @ 20 mls/hr IV .Q24H [facility] Rx#:[id number] Vancomycin 1,000 mg In 6 Sodium Chloride 0.9% 250 ml @ 125 mls/hr IVPB ONCE ONE Rx#:[id number] Intake, IV Titration 170.512 319.285 Amount Norepinephrine 8 mg In 112.839 184.839 Sodium Chloride 0.9% 250 ml @ 0.03 MCG/KG/MIN 3. 106 mls/hr IV .Q24H [facility] Rx#:[id number] propofoL 1,000 mg In 57.673 134.446 Empty Bag 1 bag @ 15 MCG/ KG/MIN 4.815 mls/hr IV . [id number] [facility] Rx#:[id number] Tube Feeding 400 480 40 Other 90 Output: Urine 65 70 0 Other: Voiding Method Indwelling Catheter Indwelling Catheter # Bowel Movements 1 1 ABP, PAP, CO, CI - Last Documented Arterial Blood Pressure 104/58 - Labs CBC & Chem 7: 09/02/24 06:30 09/02/24 06:30 Labs: Abnormal Lab Results - Last 24 Hours (Table) 09/01/24 09/01/24 09/01/24 Range/Units 04:28 04:28 13:55 WBC (3.8-10.6) k/uL RBC (3.80-5.40) m/uL Hgb (11.4-16.0) gm/dL Hct (34.0-46.0) % RDW (11.5-15.5) % Plt Count (150-450) k/uL Lymphocytes # (1.0-4.8) k/uL ABG pCO2 (35-45) mmHg ABG HCO3 (21-25) mmol/L ABG O2 Saturation (94-97) % Sodium (137-145) mmol/L Chloride (98-107) mmol/L Carbon Dioxide (22-30) mmol/L BUN (7-17) mg/dL Creatinine (0.52-1.04) mg/dL Glucose (74-99) mg/dL POC Glucose (mg/dL) (70-110) mg/dL Calcium (8.4-10.2) mg/dL C-Reactive Protein 21.1 H (<1.0) mg/dL Procalcitonin 15.30 H (0.02-0.50) ng/mL Urine Protein 1+ H (Negative) Urine Blood Moderate H (Negative) Urine RBC 24 H (0-5) /hpf 09/01/24 09/01/24 09/02/24 Range/Units 17:26 23:13 05:31 WBC (3.8-10.6) k/uL RBC (3.80-5.40) m/uL Hgb (11.4-16.0) gm/dL Hct (34.0-46.0) % RDW (11.5-15.5) % Plt Count (150-450) k/uL Lymphocytes # (1.0-4.8) k/uL ABG pCO2 (35-45) mmHg ABG HCO3 (21-25) mmol/L ABG O2 Saturation (94-97) % Sodium (137-145) mmol/L Chloride (98-107) mmol/L Carbon Dioxide (22-30) mmol/L BUN (7-17) mg/dL Creatinine (0.52-1.04) mg/dL Glucose (74-99) mg/dL POC Glucose (mg/dL) 184 H 172 H 141 H (70-110) mg/dL Calcium (8.4-10.2) mg/dL C-Reactive Protein (<1.0) mg/dL Procalcitonin (0.02-0.50) ng/mL Urine Protein (Negative) Urine Blood (Negative) Urine RBC (0-5) /hpf 09/02/24 09/02/24 09/02/24 Range/Units 05:33 06:30 06:30 WBC 1.8 L (3.8-10.6) k/uL RBC 2.64 L (3.80-5.40) m/uL Hgb 7.5 L (11.4-16.0) gm/dL Hct 23.7 L (34.0-46.0) % RDW 20.3 H (11.5-15.5) % Plt Count 77 L (150-450) k/uL Lymphocytes # 0.3 L (1.0-4.8) k/uL ABG pCO2 34 L (35-45) mmHg ABG HCO3 20 L (21-25) mmol/L ABG O2 Saturation 98.0 H (94-97) % Sodium 132 L (137-145) mmol/L Chloride 96 L (98-107) mmol/L Carbon Dioxide 21 L (22-30) mmol/L BUN 84 H (7-17) mg/dL Creatinine 2.30 H (0.52-1.04) mg/dL Glucose 156 H (74-99) mg/dL POC Glucose (mg/dL) (70-110) mg/dL Calcium 8.3 L (8.4-10.2) mg/dL C-Reactive Protein (<1.0) mg/dL Procalcitonin (0.02-0.50) ng/mL Urine Protein (Negative) Urine Blood (Negative) Urine RBC (0-5) /hpf Assessment and Plan Time with Patient: Less than 30
[2024-09-02 17:39] LABS: Glucose,Whole Blood 201 mg/dL (70-110)
[2024-09-02 23:24] LABS: Glucose,Whole Blood 186 mg/dL (70-110)
[2024-09-03 05:03] LABS: Anion Gap 16 mmol/L; Calcium 8.3 mg/dL (8.4-10.2); Carbon Dioxide 20 mmol/L (22-30); Chloride 96 mmol/L (98-107); Glucose 151 mg/dL (74-99); Sodium 132 mmol/L (137-145)
[2024-09-03 05:09] LABS: Anisocytosis Moderate; Basophils % (A) 0 %; Eosinophils # (A) 0.1 k/uL (0-0.7); Eosinophils % (A) 4 %; HCT 21.8 % (34.0-46.0); Hypochromasia Slight; Lymphocytes # (A) 0.3 k/uL (1.0-4.8); Lymphocytes % (A) 14 %; MCH 28.6 pg (25.0-35.0); MCHC 32.4 g/dL (31.0-37.0); MCV 88.3 fL (80.0-100.0); Mean Platelet Volume 11.2; Monocytes # (A) 0.2 k/uL (0-1.0); Monocytes % (A) 8 %; Neutrophils # (A) 1.7 k/uL (1.3-7.7); Neutrophils % (A) 73 %; RBC 2.46 m/uL (3.80-5.40); RDW 20.4 % (11.5-15.5); WBC 2.3 k/uL (3.8-10.6)
[2024-09-03 05:10] LABS: Platelet Count 81 k/uL (150-450)
[2024-09-03 05:24] LABS: Blood Urea Nitrogen 113 mg/dL (7-17)
[2024-09-03 05:25] LABS: African American GFR (CKD) 18 (>60 ml/min/1.73 sqM); Non-African American GFR(CKD) 16 (>60 ml/min/1.73 sqM)
[2024-09-03 06:19] LABS: Glucose,Whole Blood 145 mg/dL (70-110)
--- NOTE | 2024-09-03 06:50 | XR ---
EXAMINATION TYPE: XR chest 1V portable DATE OF EXAM: 09/03/2024 3:35 AM COMPARISON: One day prior, CT CLINICAL INDICATION: Female, 64 years old with history of infiltrates; [facility] TECHNIQUE: XR chest 1V portable Frontal view of the chest. FINDINGS: Lungs/Pleura: Multifocal airspace opacities. No evidence of pneumothorax or pleural effusion. Pulmonary vascularity: Unremarkable. Heart/mediastinum: Cardiomediastinal silhouette is unremarkable. Musculoskeletal: No acute osseous pathology. Other findings: None Lines/Tubes: Endotracheal tube with distal tip 4.6 cm above the danilo. Nasogastric tube with its distal tip and side-port projecting under the diaphragm. Right internal jugular central venous catheter with distal tip at the cavoatrial junction. Left central venous catheter with distal tip at the cavoatrial junction. IMPRESSION: 1. Similar multifocal airspace opacities. 2. Stable support lines and tubes. [facility], , 09/03/2024 6:48 AM
--- NOTE | 2024-09-03 08:38 | P.PN ---
Subjective Progress Note Date: 09/03/24 This is a 63-year-old female who presented to the emergency department with complaints of right lower extremity pain. Patient has a history of end-stage renal disease, as well as lung cancer and a recent diagnosis of multiple myeloma. Patient denies any trauma to leg. She reports she has had similar danial n in the past in her right lower extremity but workup has been normal. XR's showing arthritis on admission. Patient maintained on hemodialysis as an outpatient, is due for dialysis today. 08/23/2024 Patient seen and evaluated laying in bed this morning. Last night she developed SVT and was transferred to the cardiac floor. Cardiology has been consulted and the patient was started on a Cardizem drip. Patient denies any shortness of breath or chest pain at time of SVT last night. Patient had a CT of the pelvis yesterday which shows possible enlarged lymph node in the right inguinal area. 08/27/2024 Patient remains in the ICU on mechanical ventilation. She was positive for COVID last week. Patient still having tachycardia and tachypnea. 08/28/2024 Patient remains in the ICU on mechanical ventilation. Pulmonary has ordered a CT of the head and chest for today. Patient continues to have tachycardia and tachypnea. Hemoglobin was 6.7 yesterday and patient received 1 unit of PRBCs. 08/30/2024 Patient remains in the ICU and on mechanical ventilation. Her heart rate has improved. She will be getting dialysis today. 09/03/2024 Patient remains in the ICU on mechanical ventilation. Her heart rate has improved. Hemoglobin is stable. Dialysis scheduled for today. Objective - Vital Signs Vital signs: Vital Signs Temp 100.0 F H 09/03/24 04:00 Pulse 72 09/03/24 07:00 Resp 24 09/03/24 07:00 BP 105/59 09/03/24 01:45 Pulse Ox 93 L 09/03/24 07:00 FiO2 40 09/03/24 07:58 Intake & Output 09/02/24 09/03/24 09/03/24 18:59 06:59 18:59 Intake Total 4018.478 1932.983 43 Output Total 84 0 0 Balance 8563.388 6845.983 43 Weight 63.5 kg Intake: IV 556 356 3 .9NS Pressure Bag 66 36 3 Piperacillin-Tazobactam 3 100 .375 gm In Sodium Chloride 0.9% 100 ml @ 25 mls/hr IVPB Q12H [facility] Rx# :[id number] Sodium Chloride 0.9% 500 240 220 ml 500 ml @ 20 mls/hr IV .Q24H [facility] Rx#:[id number] Vancomycin 1,000 mg In 250 Sodium Chloride 0.9% 250 ml @ 125 mls/hr IVPB ONCE ONE Rx#:[id number] Intake, IV Titration 126.027 477.983 Amount Diltiazem 125 mg In 113.083 Sodium Chloride 0.9% 100 ml @ 5 MG/HR 5 mls/hr IV .Q24H [facility] Rx#:[id number] Norepinephrine 8 mg In 53.313 244.686 Sodium Chloride 0.9% 250 ml @ 0.03 MCG/KG/MIN 3. 106 mls/hr IV .Q24H [facility] Rx#:[id number] propofoL 1,000 mg In 72.714 120.214 Empty Bag 1 bag @ 15 MCG/ KG/MIN 4.815 mls/hr IV . [id number] [facility] Rx#:[id number] Tube Feeding 480 440 40 Other 90 60 Output: Urine 84 0 0 Other: Voiding Method Indwelling Catheter Indwelling Catheter # Bowel Movements 1 ABP, PAP, CO, CI - Last Documented Arterial Blood Pressure 106/55 - Exam intubated - Constitutional General appearance: Present: cooperative - EENT Eyes: Present: PERRLA - Neck Neck: Present: normal ROM. Absent: lymphadenopathy, rigidity - Respiratory Respiratory: bilateral: diminished - Cardiovascular Heart sounds: normal: S1, S2 - Gastrointestinal General gastrointestinal: Present: soft - Integumentary Integumentary: Present: normal, normal turgor - Musculoskeletal Musculoskeletal: Present: generalized weakness - Labs CBC & Chem 7: 09/03/24 04:30 09/03/24 04:30 Labs: Abnormal Lab Results - Last 24 Hours (Table) 09/02/24 09/02/24 09/02/24 Range/Units 11:19 17:37 23:23 WBC (3.8-10.6) k/uL RBC (3.80-5.40) m/uL Hgb (11.4-16.0) gm/dL Hct (34.0-46.0) % RDW (11.5-15.5) % Plt Count (150-450) k/uL Lymphocytes # (1.0-4.8) k/uL Sodium (137-145) mmol/L Chloride (98-107) mmol/L Carbon Dioxide (22-30) mmol/L BUN (7-17) mg/dL Creatinine (0.52-1.04) mg/dL Glucose (74-99) mg/dL POC Glucose (mg/dL) 152 H 201 H 186 H (70-110) mg/dL Calcium (8.4-10.2) mg/dL 09/03/24 09/03/24 09/03/24 Range/Units 04:30 04:30 06:18 WBC 2.3 L (3.8-10.6) k/uL RBC 2.46 L (3.80-5.40) m/uL Hgb 7.0 L (11.4-16.0) gm/dL Hct 21.8 L (34.0-46.0) % RDW 20.4 H (11.5-15.5) % Plt Count 81 L (150-450) k/uL Lymphocytes # 0.3 L (1.0-4.8) k/uL Sodium 132 L (137-145) mmol/L Chloride 96 L (98-107) mmol/L Carbon Dioxide 20 L (22-30) mmol/L BUN 113 H* (7-17) mg/dL Creatinine 2.96 H (0.52-1.04) mg/dL Glucose 151 H (74-99) mg/dL POC Glucose (mg/dL) 145 H (70-110) mg/dL Calcium 8.3 L (8.4-10.2) mg/dL Microbiology - Last 24 Hours (Table) 09/01/24 13:55 Blood Culture - Preliminary Blood 09/01/24 15:32 Gram Stain - Preliminary Sputum Assessment and Plan (1) Lung cancer Current Visit: Yes Status: Acute Code(s): C34.90 - MALIGNANT NEOPLASM OF UNSP PART OF UNSP BRONCHUS OR LUNG SNOMED Code(s): 742164923 (2) Multiple myeloma Current Visit: Yes Status: Acute Priority: High Code(s): C90.00 - MULTIPLE MYELOMA NOT HAVING ACHIEVED REMISSION SNOMED Code(s): 718293549 (3) Intractable pain Current Visit: Yes Status: Acute Priority: High Code(s): R52 - PAIN, UNSPECIFIED SNOMED Code(s): 12450865 (4) COPD (chronic obstructive pulmonary disease) Current Visit: Yes Status: Acute Code(s): J44.9 - CHRONIC OBSTRUCTIVE PULMONARY DISEASE, UNSPECIFIED SNOMED Code(s): 65008332 (5) End stage renal disease Current Visit: Yes Status: Acute Priority: High Code(s): N18.6 - END STAGE RENAL DISEASE SNOMED Code(s): 52781403 (6) COVID Current Visit: Yes Status: Acute Code(s): U07.1 - COVID-19 SNOMED Code(s): 697279110 Plan: Appreciate multiple consultants. Check CBC and CMP in the morning. Patient seen and evaluated by nurse practitioner, physician in agreement with plan.
--- NOTE | 2024-09-03 08:56 | P.PN ---
Subjective Patient is seen in follow-up for end-stage renal disease. She is maintained on hemodialysis on Tuesday schedule. Tolerating dialysis well. On Levophed. Receiving tube feeds. On Cardizem drip. Vital signs are stable. On Levophed. General: Resting in bed. HEENT: Intubated. LUNGS: Scattered rhonchi. HEART: Rate and Rhythm are regular. ABDOMEN: No distention. EXTREMITITES: Trace edema. Objective - Vital Signs Vital signs: Vital Signs Temp 100.0 F H 09/03/24 04:00 Pulse 72 09/03/24 07:00 Resp 24 09/03/24 07:00 BP 105/59 09/03/24 01:45 Pulse Ox 93 L 09/03/24 07:00 FiO2 40 09/03/24 07:58 Intake & Output 09/02/24 09/03/24 09/03/24 18:59 06:59 18:59 Intake Total 3007.844 7888.983 43 Output Total 84 0 0 Balance 0693.289 0471.983 43 Weight 63.5 kg Intake: IV 556 356 3 .9NS Pressure Bag 66 36 3 Piperacillin-Tazobactam 3 100 .375 gm In Sodium Chloride 0.9% 100 ml @ 25 mls/hr IVPB Q12H [facility] Rx# :[id number] Sodium Chloride 0.9% 500 240 220 ml 500 ml @ 20 mls/hr IV .Q24H [facility] Rx#:[id number] Vancomycin 1,000 mg In 250 Sodium Chloride 0.9% 250 ml @ 125 mls/hr IVPB ONCE ONE Rx#:[id number] Intake, IV Titration 126.027 477.983 Amount Diltiazem 125 mg In 113.083 Sodium Chloride 0.9% 100 ml @ 5 MG/HR 5 mls/hr IV .Q24H [facility] Rx#:[id number] Norepinephrine 8 mg In 53.313 244.686 Sodium Chloride 0.9% 250 ml @ 0.03 MCG/KG/MIN 3. 106 mls/hr IV .Q24H [facility] Rx#:[id number] propofoL 1,000 mg In 72.714 120.214 Empty Bag 1 bag @ 15 MCG/ KG/MIN 4.815 mls/hr IV . [id number] [facility] Rx#:[id number] Tube Feeding 480 440 40 Other 90 60 Output: Urine 84 0 0 Other: Voiding Method Indwelling Catheter Indwelling Catheter # Bowel Movements 1 ABP, PAP, CO, CI - Last Documented Arterial Blood Pressure 106/55 - Labs CBC & Chem 7: 09/03/24 04:30 09/03/24 04:30 Labs: Abnormal Lab Results - Last 24 Hours (Table) 09/02/24 09/02/24 09/02/24 Range/Units 11:19 17:37 23:23 WBC (3.8-10.6) k/uL RBC (3.80-5.40) m/uL Hgb (11.4-16.0) gm/dL Hct (34.0-46.0) % RDW (11.5-15.5) % Plt Count (150-450) k/uL Lymphocytes # (1.0-4.8) k/uL Sodium (137-145) mmol/L Chloride (98-107) mmol/L Carbon Dioxide (22-30) mmol/L BUN (7-17) mg/dL Creatinine (0.52-1.04) mg/dL Glucose (74-99) mg/dL POC Glucose (mg/dL) 152 H 201 H 186 H (70-110) mg/dL Calcium (8.4-10.2) mg/dL 09/03/24 09/03/24 09/03/24 Range/Units 04:30 04:30 06:18 WBC 2.3 L (3.8-10.6) k/uL RBC 2.46 L (3.80-5.40) m/uL Hgb 7.0 L (11.4-16.0) gm/dL Hct 21.8 L (34.0-46.0) % RDW 20.4 H (11.5-15.5) % Plt Count 81 L (150-450) k/uL Lymphocytes # 0.3 L (1.0-4.8) k/uL Sodium 132 L (137-145) mmol/L Chloride 96 L (98-107) mmol/L Carbon Dioxide 20 L (22-30) mmol/L BUN 113 H* (7-17) mg/dL Creatinine 2.96 H (0.52-1.04) mg/dL Glucose 151 H (74-99) mg/dL POC Glucose (mg/dL) 145 H (70-110) mg/dL Calcium 8.3 L (8.4-10.2) mg/dL Microbiology - Last 24 Hours (Table) 09/01/24 13:55 Blood Culture - Preliminary Blood 09/01/24 15:32 Gram Stain - Preliminary Sputum Assessment and Plan Plan: Assessment: 1. End-stage renal disease maintained on hemodialysis on Tuesday schedule via permacath. 2. Acute COVID-19 infection. 3. Acute hypoxic respiratory failure. 4. A-fib with RVR maintained on Cardizem drip. 5. Staph epi bacteremia. Possibly contamination. Repeat cultures have been negative. 6. Right leg pain. Questionable groin mass versus enlarged lymph node versus joint effusion. Possible MRI to further evaluate down the road. 7. Multiple myeloma. Also noted to have pulmonary nodule. Oncology following. Treatment currently on hold due to acute infection. 8. Anemia of chronic kidney disease and also likely component of underlying multiple myeloma. 9. Volume overload. Improved with ultrafiltration. Plan: Currently seen while undergoing hemodialysis. Maintain tube feeds. Wean FiO2 and Levophed. Check phosphorus level.
--- NOTE | 2024-09-03 09:23 | P.PN ---
Progress Note - Text Progress Note Date: 09/03/24 HPI: [This is a 64-year-old lady with multiple comorbid conditions including multiple myeloma end-stage renal disease on hemodialysis lung nodules with malignancy. We are seeing her for atrial fibrillation paroxysmal in nature. Fortunately she is in sinus rhythm. She is currently on amiodarone oral 400 mg twice daily and also on a small dose of Cardizem drip and oral metoprolol. She is on a small dose of Levophed. Overall hemodynamically stable. From a cardiac standpoint I have no new suggestions. I would recommend that we wean off the Levophed once a dialysis is done. Patient is on a ventilator intubated and quite sedated. There is also a combination of COVID infection history of COPD and lung mass.]. PHYSICIAL EXAM: [Vital signs are stable JVD is not evident S1-S2 heard normally short systolic murmur ventilator assisted breath sounds abdomen is soft groin not examined lower extremities reveal diminished pulses]. IMPRESSION: 1. [Acute respiratory failure on ventilator]. 2. [Paroxysmal atrial fibrillation currently in sinus rhythm on oral amiodarone and beta-fidel and small dose of Cardizem]. 3. [Anemia]. 4. [End-stage renal disease on hemodialysis]. 5. [Lung mass probable malignancy]. RECOMMENDATIONS: [Continue current supportive care. Amiodarone may not be the best drug but we do not have too many choices. I will decrease the dose of amiodarone after 3 more days. Advised to wean off Levophed once dialysis is completed. If patient continues to maintain sinus rhythm we can discontinue Cardizem drip as well. Prognosis remains guarded].
[2024-09-03 11:51] LABS: Glucose,Whole Blood 183 mg/dL (70-110)
--- NOTE | 2024-09-03 12:26 | P.PN ---
Subjective Progress Note Date: 09/03/24 Principal diagnosis: Acute hypoxic respiratory failure, multifactorial This is a 63-year-old female patient with a known history of multiple myeloma receiving chemotherapy recently, suspected lung cancer with a PET positive right upper lobe 1.7 cm spiculated nodule, chronic obstructive pulmonary disease, chronic tobacco dependence, hypertension, hypothyroidism, end-stage renal disease receiving hemodialysis. She was admitted here on 08/21/2024 with complaints of right lower extremity pain. Been undergoing evaluation. Today on August 23, 2024 she had rapid response called on her twice for increasing shortness of breath and hypoxemia. She was subsequently transferred to the intensive care unit. She was placed on BiPAP / and 100% FiO2. She continued to do poorly and was subsequently intubated and placed on the mechanical ventilator. Currently on assist-control mode at a rate of 20, tidal volume 350, FiO2 100% and a PEEP of 5. She did undergo a left subclavian triple-lumen catheter placement and a right radial arterial line placement. Chest x-ray revealed satisfactory positions of the lines. Subtle scattered opacities may represent atypical pneumonia. Finding out today she is positive for COVID-19. Arterial blood gases post intubation revealed a PaO2 greater than 420, pCO2 of 60 and a pH of 7.28. FiO2 will be decreased accordingly. White count 8.5. Hemoglobin 8.7. Platelets 404. Sodium 129. Potassium 5.7. Bicarb 24. BUN 57. Creatinine 5.92. Glucose 82. She is sedated on propofol at 15 mcg/kg/min. The patient is seen today August 24, 2024 in follow-up in the intensive care unit. She remains intubated on the mechanical ventilator and assist-control mode at a rate of 20, tidal volume 350, FiO2 50% and a PEEP of 5. Morning blood gases revealed a PaO2 of 99. pCO2 48. pH 7.35. She is still requiring norepinephrine at 7 mcg/min. Cardizem drip at 5 mg an hour. Propofol at 40 mcg/kg/min. Lactated Ringer's at 100 mL/h. She is being nourished with vital HP at 10 mL/h with a goal of 46 mL/h. She remains on Symbicort, albuterol, Decadron. She is on Lovenox for DVT prophylaxis. Protonix for GI prophylaxis. Blood cultures now showing gram-positive cocci in clusters. Sputum culture pending. Vancomycin will be given x 1 until further cultures result. White count 6.6. Hemoglobin 7.0. Platelets 352. Sodium 132. Potassium 4.8. Bicarb 25. BUN 32. Creatinine 3.32. Glucose 108. The patient is seen today August 25, 2024 in follow-up in the intensive care unit. She remains intubated on the mechanical ventilator currently in settings of assist-control mode at a rate of 20, tidal volume 350, FiO2 50% and a PEEP of 5. Morning blood gases revealed a PaO2 of 91. pCO2 of 53 and a pH of 7.28. Chest x-ray reveals chronic and for somatic changes with mild cardiomegaly and patchy bilateral multifocal edema. No significant change. She remains on norepinephrine at 4 mcg/min. Cardizem drip is off. She was having sinus pauses yesterday. She has issues with intermittent atrial flutter. She is sedated on propofol at 40 mcg/kg/min. Lactated Ringer's at KVO. She is being nourished with vital HP at 10 mL/h. He received vancomycin x 1 for Staphylococcus epidermidis blood culture. Sputum culture revealed no growth. White count 12.9. Hemoglobin 7.5. Platelets 423. Sodium 133. Potassium 5.0. Bicarb 21. BUN 58. Creatinine 4.48. Glucose 134. She remains on Symbicort, albuterol, Decadron. Lovenox for DVT prophylaxis. Protonix for GI prophylaxis. The patient is seen today August 26, 2024 in follow-up in the intensive care unit. She remains intubated on mechanical ventilator and assist-control mode with a rate of 20, tidal valve 350, FiO2 50% and a PEEP of 5. Morning blood gases revealed a PaO2 of 90. pCO2 57 and a pH of 7.28. She did receive hemodialysis with 500 mL of fluid removed yesterday. She remains on norepinephrine at 1.7 mcg/min. Propofol at 50 mcg/kg/min. Lactated Ringer's at KVO. Vital HP at 10 mL an hour with a goal of 46 mL/h. She is continued with high residuals. May need Reglan if no improvement. She remains on albuterol, Symbicort, Decadron. Lovenox for DVT prophylaxis. Show chronic and for somatic changes and mild cardiomegaly with small to tiny left pleural effusion and patchy bilateral multifocal edema and/or acute infiltrates. No significant change. Blood culture was positive for Staphylococcus epidermidis. Sputum culture revealed no growth. White count 13.3. Hemoglobin 7.5. Platelets 364. Sodium 133. Potassium 5.1. Bicarb 24. BUN 41. Creatinine 2.91. Glucose 137. Currently in a +250 mL balance. On 08/27/2024, this patient is being seen for a follow-up. The patient remains intubated on the mechanical ventilator due to a combination of COPD and CHF exacerbation and COVID-19 infection. Noted the patient also has history of multiple myeloma receiving treatment on an outpatient basis. The patient has end-stage renal disease on hemodialysis and the patient also has history of hypertension hypothyroidism and during the course of the illness, the patient was also found to have a spiculated 1.7 cm right upper lobe lesion that was PET avid. This morning, the patient remains intubated on the mechanical ventilator. The patient is on assist-control mode at rate of 20, tidal volume of 350, FiO2 50% with a PEEP of 5. The patient remains sedated with propofol at 50 mc. The blood gases from today showed a pH of 7.26 with a pCO2 of 56 and pO2 of 70 and the chest x-ray shows stable perihilar and lower lobe pulmonary infiltrates. ET tube is around 5 cm above the danilo. The patient also has a dialysis permacath port in the right subclavian. Blood culture was positive for coagulase-negative staph and Staph epidermidis on 08/23/2024. Sputum culture was negative. The patient is currently on Decadron 8 mg p.o. daily Symbicort. No antibiotic coverage for now. is also on Lovenox for DVT prophylaxis at a dose of 30 mg subcu on a daily basis. Hemodynamically, the patient is requiring a low-dose norepinephrine for blood pressure support. Echocardiogram done on 08/23/2024 shows mild impairment of LV function with an EF of around 40 to 45% evidence of severe pulmonary hypertension and RV dilatation and estimated pulmonary artery pressures of around 56. Blood work from today shows a white cell count of 10.6, hemoglobin 7.2 and platelet count of 333. The sodium level is sodium is 135 at 135 with a potassium of 5.3, BUN 70 creatinine of 4.34. She is still on NE low dose at 0.04mc/kg/min. Her fluid balance is 1.4 L over the past 24 hours. Her last hemodialysis session was on 08/25/2024 with a total of 1 L of fluid was removed. She is on Vital HP at 30 cc. hr. Residuals are oin 250 cc range On 08/28/2023, the patient is being seen for a follow-up. Remains intubated on mechanical ventilator. Patient remains on propofol running at 45 mcg/kg/min. On today's evaluation, the patient is on assist-control mode with rate of 20, tidal volume of 450, FiO2 of 50% and the PEEP was brought up to 8 as the morning blood gases showed a pH of 7.38 with a pCO2 of 50 and pO2 of 66 and this was an FiO2 of 50%. The chest x-ray findings are essentially unchanged. The patient continues to have perihilar and lower lobe pulmonary infiltrates, patchy, slightly worse on the left and there is also some background cardiomegaly. The patient underwent hemodialysis yesterday. The patient is end-stage renal disease and she is currently on hemodialysis. She remains on norepinephrine which is running at 0.1 mcg/kg/min and the patient remains on vasopressin physiologic dose at 0.03 units. The patient has been having difficulties with atrial fibrillation since yesterday. Cardiology has been involved in the case and the patient was started on Cardizem drip and Cardizem drip is running at 5 mg an hour. Nevertheless, the patient continues to be in A-fib and she remains tachycardic. On a separate note, her hemoglobin is at 6.7. Still awaiting an appropriate manage for the packed RBC transfusion. The rest of the blood work shows a white cell count of 7.9, platelet count of 258, BUN is 48 with a creatinine of 2.8, sodium is at 132, chloride is 94 and a serum bicarb is at 27 at this point. Remains on Decadron 8 mg p.o. daily. Afebrile. Receiving enteral feeding for nutritional support. On 08/29/2024, the patient is being seen for a follow-up. The patient remains intubated on the mechanical ventilator. This morning, the patient is on propofol running at 30 mcg/kg/min. The patient is on mechanical ventilator assist-control mode rate of 20, tidal volume of 450, FiO2 50% with a PEEP of 8. Blood gas from today showed a pH of 7.27 with a pCO2 of 53 and pO2 of 97. CAT scan of the brain was negative. CAT scan of the chest was also completed yesterday and it showed interstitial infiltrates bilaterally consistent with COVID-19 pneumonia. At the same time, the patient had areas of consolidation lung bases left more than right highly suspicious for a bacterial infection. Based on that, the patient was started on a combination of Zosyn and vancomycin. The patient received a unit of packed RBC and the hemoglobin today is at 7.3. The patient remains on low-dose norepinephrine running at 0.08 mcg/kg/min. IV fluids are currently at KVO. Receiving vital high-protein at rate of 40 cc an h our. The patient encountered atrial fibrillation and she is currently back in normal sinus rhythm. She remains on amiodarone at 0.5 mg/min. Last hemodialysis session was on 08/27/2024. The white cell count is at 4.7, hemoglobin 7.3 and a platelet count of 188. Sodium is at 131 with a potassium level of 5.1, BUN is 81 with a creatinine of 3.3. No other significant events overnight. The patient is currently afebrile. Overnight, the patient was having low-grade fever On 08/30/2024, the patient is being seen for a follow-up. The patient remains intubated on the mechanical ventilator. This morning, the patient is on propofol running at 15 mcg/kg/min. She is on assist-control mode of mechanical ventilation and the patient is on assist-control rate of 20, tidal volume of 450, FiO2 50% with a PEEP of 6. Blood gas showed pH of 7.26 with a pCO2 of 57 and pO2 of 78. Chest x-ray shows stable, probably slightly improved perihilar and lower lobe pulmonary filtration as the patient is currently on a combination of Zosyn and vancomycin. The patient is also to undergo hemodialysis today. Hemodynamically, the patient is in normal sinus rhythm. The patient is on no pressors. The patient is dealing vital high-protein at rate of 40 cc an hour. Blood work from today shows a white cell count of 3.7 with a hemoglobin 8.2 and a platelet count of 143. The sodium is at 130, potassium is at 5.9 with a chloride of 93 and a bicarb of 19. BUN is 119 with a potassium level of 3.8. The patient remains on Decadron. Rest of the medications are essentially unchanged. The patient was given a sedation holiday yesterday and the patient was able to arouse and follows some simple commands. Not ready for extubation yet. Hemoglobin has been stable. No signs of any bleeding. 08/31/2024, the patient is being seen for a follow-up. The patient remains on propofol running at 25 mcg/kg/min. Breathing seems to be labile and the patient continues to have a high minute ventilation of around 16 to 17 L/min. She remains on assist-control mode of mechanical ventilation at rate of 20, tidal vo lume of 500, FiO2 50% with a PEEP of 6. Blood gas showed a pH of 7.37 with a pCO2 of 45 and pO2 of 74. The chest x-ray findings are stable and the patient stable bilateral pulmonary filtrates. The patient underwent hemodialysis yesterday and a total of 650 cc of fluid was removed. Postdialysis, the patient was placed on norepinephrine which is currently running at 0.06 mcg/kg/min. The patient is in a normal sinus rhythm and she converted as of 3 AM this morning. She is on vital high-protein at rate of 40 cc an hour. Afebrile for now. White cell count is down to 1.7 with a hemoglobin 7.7 and a platelet count of 106. Sodium is at 133, potassium is at 4.7, bicarb is 25 with a BUN of 19 and creatinine of 2.6. Vancomycin trough level was 18. On 09/01/2024, the patient is being seen for a follow-up. Calm and comfortable, remains on propofol at 20 mcg/kg/min. This morning, her breathing is less labored and her minute ventilation is down to 12. She is on a pressure control mode of mechanical ventilation at rate of 20, pressure control of 20, I, 0.8, FiO2 of 50% with a PEEP of 6. Chest x-ray findings are unchanged. The patient is to undergo another session of hemodialysis today. Blood gas from today shows a pH of 7.39 with a pCO2 of 39 and pO2 of 101. Cardiac rhythm is sinus and the patient remains on a combination of oral amiodarone and metoprolol. The patient remains on vital high-protein at rate of 40 cc an hour. No pressors for now. The white cell count of 2.2 renal cell 0.5 and a platelet count of 92. Sodium is 134, BUN is 117 and a creatinine of 3.37. Potassium level is at 5.1. Serum bicarb is at 18. Remains on Zosyn and vancomycin. Sputum cultures have been negative. Blood cultures been negative. Remains on Lovenox 30 mg subcu for DVT prophylaxis. Remains on Decadron 8 mg p.o. on a daily basis. On 09/02/2024, the patient is being seen for a follow-up. The patient remains on propofol running at 30 mcg/kg/min. Calm and comfortable on pressure control mode of mechanical ventilation at rate of 20, pressure control of 20, FiO2 50% with a PEEP of 5. Blood gas showed a pH of 7.37 with a pCO2 of 34 and pO2 of 103. Chest x-ray findings are stable. Remains on low-dose norepinephrine running at 0.1 mcg/kg/min. Hemodialysis performed yesterday a total of 650 cc of fluid was removed. She is in A-fib/flutter and the patient remains on oral amiodarone 400 mg p.o. twice a day and metoprolol 25 mg p.o. twice a day. She remains on Lovenox 30 mg subcu for DVT prophylaxis. She remains on Decadron. The blood work from today shows a white cell count of 1.8 with a hemoglobin of 7.5 and a platelet count of 77. Platelet counts are stable. BUN is 84 with a creatinine of 2.3 and a sodium levels at 132. Vancomycin level is at 17. Patient was evaluated today in the ICU on 09/13/2024 remains intubated and mechanically ventilated, she is on pressure control mode of mechanical ventilation with PI of 20, DI 0.8, rate 14 FiO2 40% and PEEP of 5 ABG showed a pO2 of 75 pCO2 37 pH of 7.38 hence no changes were made in vent settings. Patient requiring norepinephrine at 0.1 mcg/kg/min also on propofol 30 mcg/kg/min Cardizem 5 mg/h she is receiving vital HP at 40 cc/h IV fluid at KVO remains on Zosyn, and she is on hemodialysis today, when I saw the patient she was actually receiving hemodialysis the plan is to remove 1 L. Patient had COV ID over 10 days ago, and she is out of precautions. Her peak airway pressures 26 Plateau pressure is 19. Chest x-ray continues to show multifocal airspace opacities. WBC count is 2.3 hemoglobin is 7 electrolytes are normal BUN is 113 creatinine 2.96 Objective - Vital Signs Vital signs: Vital Signs Temp 99.0 F 09/03/24 11:30 Pulse 86 09/03/24 11:30 Resp 23 09/03/24 11:30 BP 94/52 09/03/24 11:00 Pulse Ox 93 L 09/03/24 11:30 FiO2 40 09/03/24 11:19 Intake & Output 09/02/24 09/03/24 09/03/24 18:59 06:59 18:59 Intake Total 3722.262 9285.983 346.329 Output Total 84 0 40 Balance 1045.549 9717.983 306.329 Weight 63.5 kg 63.5 kg Intake: IV 556 356 35 .9NS KVO 20 .9NS Pressure Bag 66 36 15 Piperacillin-Tazobactam 3 100 .375 gm In Sodium Chloride 0.9% 100 ml @ 25 mls/hr IVPB Q12H [facility] Rx# :[id number] Sodium Chloride 0.9% 500 240 220 ml 500 ml @ 20 mls/hr IV .Q24H [facility] Rx#:[id number] Vancomycin 1,000 mg In 250 Sodium Chloride 0.9% 250 ml @ 125 mls/hr IVPB ONCE ONE Rx#:[id number] Intake, IV Titration 126.027 477.983 136.329 Amount Diltiazem 125 mg In 113.083 Sodium Chloride 0.9% 100 ml @ 5 MG/HR 5 mls/hr IV .Q24H [facility] Rx#:[id number] Norepinephrine 8 mg In 53.313 244.686 82.989 Sodium Chloride 0.9% 250 ml @ 0.03 MCG/KG/MIN 3. 106 mls/hr IV .Q24H [facility] Rx#:[id number] propofoL 1,000 mg In 72.714 120.214 53.34 Empty Bag 1 bag @ 15 MCG/ KG/MIN 4.815 mls/hr IV . [id number] [facility] Rx#:[id number] Tube Feeding 480 440 175 Other 90 60 Output: Urine 84 0 40 Other: Voiding Method Indwelling Catheter Indwelling Catheter Indwelling Catheter # Bowel Movements 1 1 ABP, PAP, CO, CI - Last Documented Arterial Blood Pressure 104/49 - Exam GENERAL EXAM: Revealed 64-year-old female intubated mechanically ventilated opens eyes but does not follow instructions. HEAD: Normocephalic. EYES: Normal reaction of pupils, equal size. NOSE: Clear with pink turbinates. THROAT: Endotracheal tube and gastric tube are intact. NECK: No masses, no JVD. CHEST: No chest wall deformity. LUNGS: Crackles at the bases no rhonchi no wheezes CVS: S1 and S2 normal with no audible murmur, regular rhythm. ABDOMEN: Soft nontender no MAG no rebound no guarding SKIN: No rashes CENTRAL NERVOUS SYSTEM: Eyes, does not follow instructions, patient is on propofol, she will be given a sedation holiday for full assessment of mental status today. EXTREMITIES: There is no peripheral edema. No clubbing, no cyanosis. Peripheral pulses are intact. - Labs CBC & Chem 7: 09/03/24 04:30 09/03/24 04:30 Labs: Abnormal Lab Results - Last 24 Hours (Table) 09/02/24 09/02/24 09/03/24 Range/Units 17:37 23:23 04:30 WBC 2.3 L (3.8-10.6) k/uL RBC 2.46 L (3.80-5.40) m/uL Hgb 7.0 L (11.4-16.0) gm/dL Hct 21.8 L (34.0-46.0) % RDW 20.4 H (11.5-15.5) % Plt Count 81 L (150-450) k/uL Lymphocytes # 0.3 L (1.0-4.8) k/uL Sodium (137-145) mmol/L Chloride (98-107) mmol/L Carbon Dioxide (22-30) mmol/L BUN (7-17) mg/dL Creatinine (0.52-1.04) mg/dL Glucose (74-99) mg/dL POC Glucose (mg/dL) 201 H 186 H (70-110) mg/dL Calcium (8.4-10.2) mg/dL Phosphorus (2.5-4.5) mg/dL 09/03/24 09/03/24 09/03/24 Range/Units 04:30 04:30 06:18 WBC (3.8-10.6) k/uL RBC (3.80-5.40) m/uL Hgb (11.4-16.0) gm/dL Hct (34.0-46.0) % RDW (11.5-15.5) % Plt Count (150-450) k/uL Lymphocytes # (1.0-4.8) k/uL Sodium 132 L (137-145) mmol/L Chloride 96 L (98-107) mmol/L Carbon Dioxide 20 L (22-30) mmol/L BUN 113 H* (7-17) mg/dL Creatinine 2.96 H (0.52-1.04) mg/dL Glucose 151 H (74-99) mg/dL POC Glucose (mg/dL) 145 H (70-110) mg/dL Calcium 8.3 L (8.4-10.2) mg/dL Phosphorus 7.9 H (2.5-4.5) mg/dL 09/03/24 Range/Units 11:49 WBC (3.8-10.6) k/uL RBC (3.80-5.40) m/uL Hgb (11.4-16.0) gm/dL Hct (34.0-46.0) % RDW (11.5-15.5) % Plt Count (150-450) k/uL Lymphocytes # (1.0-4.8) k/uL Sodium (137-145) mmol/L Chloride (98-107) mmol/L Carbon Dioxide (22-30) mmol/L BUN (7-17) mg/dL Creatinine (0.52-1.04) mg/dL Glucose (74-99) mg/dL POC Glucose (mg/dL) 183 H (70-110) mg/dL Calcium (8.4-10.2) mg/dL Phosphorus (2.5-4.5) mg/dL Microbiology - Last 24 Hours (Table) 09/01/24 13:55 Blood Culture - Preliminary Blood 09/01/24 15:32 Gram Stain - Preliminary Sputum Assessment and Plan Assessment: Impression: Acute hypoxic respiratory failure, multifactorial Acute exacerbation of COPD Acute on chronic systolic congestive heart failure Acute COVID-19 pneumonia, underlying bacterial pneumonia is not entirely ruled out. Sepsis and septic shock with hypotension secondary to pneumonia History of multiple myeloma has been on Revlimid, patient has chronic pancytopenia Right upper lobe spiculated nodule with positive PET scan needs outpatient workup it is 1.7 cm highly suspicious for bronchogenic carcinoma/adenocarcinoma Tobacco dependence syndrome End-stage renal disease, on hemodialysis Benign essential hypertension Generative joint disease Chronic anemia Recommendations: Continue ventilatory support no changes were made in her present vent settings Consider sedation holiday today and assessment of mental status Continue hemodialysis Continue antibiotics and continue Decadron Continue amiodarone Continue GI and DVT prophylaxis Continue nutritional support/enteral feeding Transfuse with packed RBCs if hemoglobin below 7 Continue metoprolol and Cardizem for atrial fibrillation presently in sinus rhythm Sedation holidays daily basis Continue hemodialysis as per nephrology Patient remains critically ill, critical care time is over 30 minutes Will continue to follow Time with Patient: Greater than 30
[2024-09-03 17:14] LABS: Glucose,Whole Blood 213 mg/dL (70-110)
[2024-09-03] MEDS: VASOPRESSIN 20 UNIT in SODIUM CHLORIDE 0.9% 50 ML IV SCH (20:22)
[2024-09-03 23:29] LABS: Glucose,Whole Blood 225 mg/dL (70-110)
[2024-09-04 05:41] LABS: ABG Base Excess -2.9 mmol/L; ABG HCO3 22 mmol/L (21-25); ABG Oxygen Saturation 93.7 % (94-97); ABG PCO2 39 mmHg (35-45); ABG PH 7.37 (7.35-7.45); ABG PO2 73 mmHg (83-108); ABG TCO2 23 mmol/L (19-24)
[2024-09-04 05:45] LABS: Allen Test Performed? no
[2024-09-04 06:10] LABS: Glucose,Whole Blood 171 mg/dL (70-110)
--- NOTE | 2024-09-04 07:06 | XR ---
EXAMINATION TYPE: XR chest 1V portable DATE OF EXAM: 09/04/2024 5:28 AM COMPARISON: Chest radiograph from one day prior. CLINICAL INDICATION: Female, 64 years old with history of mechanical ventilation; [facility] TECHNIQUE: XR chest 1V portable Frontal view of the chest. FINDINGS: Lungs/Pleura: Multifocal airspace opacities. No evidence of pneumothorax or pleural effusion. Pulmonary vascularity: Unremarkable. Heart/mediastinum: Cardiomediastinal silhouette is unremarkable. Musculoskeletal: No acute osseous pathology. Other findings: None Lines/Tubes: Endotracheal tube with distal tip 5.4cm above the danilo. Nasogastric tube with its distal tip and side-port projecting under the diaphragm. Right internal jugular central venous catheter with distal tip at the cavoatrial junction. Left central venous catheter with distal tip at the cavoatrial junction. IMPRESSION: 1. Similar multifocal airspace opacities. 2. Stable support lines and tubes. [facility], , 09/04/2024 7:04 AM
--- NOTE | 2024-09-04 08:33 | P.PN ---
Subjective Progress Note Date: 09/04/24 This is a 63-year-old female who presented to the emergency department with complaints of right lower extremity pain. Patient has a history of end-stage renal disease, as well as lung cancer and a recent diagnosis of multiple myeloma. Patient denies any trauma to leg. She reports she has had similar danial n in the past in her right lower extremity but workup has been normal. XR's showing arthritis on admission. Patient maintained on hemodialysis as an outpatient, is due for dialysis today. 08/23/2024 Patient seen and evaluated laying in bed this morning. Last night she developed SVT and was transferred to the cardiac floor. Cardiology has been consulted and the patient was started on a Cardizem drip. Patient denies any shortness of breath or chest pain at time of SVT last night. Patient had a CT of the pelvis yesterday which shows possible enlarged lymph node in the right inguinal area. 08/27/2024 Patient remains in the ICU on mechanical ventilation. She was positive for COVID last week. Patient still having tachycardia and tachypnea. 08/28/2024 Patient remains in the ICU on mechanical ventilation. Pulmonary has ordered a CT of the head and chest for today. Patient continues to have tachycardia and tachypnea. Hemoglobin was 6.7 yesterday and patient received 1 unit of PRBCs. 08/30/2024 Patient remains in the ICU and on mechanical ventilation. Her heart rate has improved. She will be getting dialysis today. 09/03/2024 Patient remains in the ICU on mechanical ventilation. Her heart rate has improved. Hemoglobin is stable. Dialysis scheduled for today. 09/04/2024 Patient remains in the ICU on mechanical ventilation. She had hemodialysis yesterday. Heart rate has trended up a little since yesterday. Objective - Vital Signs Vital signs: Vital Signs Temp 97.6 F 09/04/24 04:00 Pulse 98 09/04/24 06:30 Resp 19 09/04/24 06:30 BP 94/51 09/04/24 06:15 Pulse Ox 96 09/04/24 06:15 FiO2 40 09/04/24 05:27 Intake & Output 09/03/24 09/04/24 09/04/24 18:59 06:59 18:59 Intake Total 4588.025 8254.550 Output Total 880 30 Balance 5375.457 9867.550 Weight 63.5 kg 65.7 kg Intake: IV 196 409 .9NS KVO 160 240 .9NS Pressure Bag 36 69 Piperacillin-Tazobactam 3 100 .375 gm In Sodium Chloride 0.9% 100 ml @ 25 mls/hr IVPB Q12H [facility] Rx# :[id number] Intake, IV Titration 239.835 395.550 Amount Diltiazem 125 mg In 104.417 Sodium Chloride 0.9% 100 ml @ 5 MG/HR 5 mls/hr IV .Q24H [facility] Rx#:[id number] Norepinephrine 8 mg In 186.495 202.074 Sodium Chloride 0.9% 250 ml @ 0.03 MCG/KG/MIN 3. 106 mls/hr IV .Q24H [facility] Rx#:[id number] Vasopressin 20 unit In 32.207 Sodium Chloride 0.9% 50 ml @ 0.03 UNITS/MIN 4.59 mls/hr IV .Q11H7M [facility] Rx# :[id number] propofoL 1,000 mg In 53.34 56.852 Empty Bag 1 bag @ 15 MCG/ KG/MIN 4.815 mls/hr IV . [id number] [facility] Rx#:[id number] Tube Feeding 615 605 Hemodialysis 800 Other 30 90 Output: Urine 80 30 Hemodialysis 641 Hemodialysis Net Amount 159 Other: Voiding Method Indwelling Catheter Indwelling Catheter # Bowel Movements 1 2 ABP, PAP, CO, CI - Last Documented Arterial Blood Pressure 94/56 - Exam intubated - Constitutional General appearance: Present: no acute distress - EENT Eyes: Present: PERRLA - Neck Neck: Absent: lymphadenopathy, rigidity - Respiratory Respiratory: bilateral: diminished - Cardiovascular Heart sounds: normal: S1, S2 - Gastrointestinal General gastrointestinal: Present: soft - Integumentary Integumentary: Present: normal, normal turgor - Labs CBC & Chem 7: 09/03/24 04:30 09/03/24 04:30 Labs: Abnormal Lab Results - Last 24 Hours (Table) 09/03/24 09/03/24 09/03/24 Range/Units 04:30 11:49 17:14 ABG pO2 (83-108) mmHg ABG O2 Saturation (94-97) % POC Glucose (mg/dL) 183 H 213 H (70-110) mg/dL Phosphorus 7.9 H (2.5-4.5) mg/dL 09/03/24 09/04/24 09/04/24 Range/Units 23:28 05:07 06:09 ABG pO2 73 L (83-108) mmHg ABG O2 Saturation 93.7 L (94-97) % POC Glucose (mg/dL) 225 H 171 H (70-110) mg/dL Phosphorus (2.5-4.5) mg/dL Microbiology - Last 24 Hours (Table) 09/01/24 15:32 Gram Stain - Final Sputum Sputum Culture - Final 09/01/24 13:55 Blood Culture - Preliminary Blood Assessment and Plan (1) Lung cancer Current Visit: Yes Status: Acute Code(s): C34.90 - MALIGNANT NEOPLASM OF UNSP PART OF UNSP BRONCHUS OR LUNG SNOMED Code(s): 810282704 (2) Multiple myeloma Current Visit: Yes Status: Acute Priority: High Code(s): C90.00 - MULTIPLE MYELOMA NOT HAVING ACHIEVED REMISSION SNOMED Code(s): 477531568 (3) Intractable pain Current Visit: Yes Status: Acute Priority: High Code(s): R52 - PAIN, UNSPECIFIED SNOMED Code(s): 69493952 (4) COPD (chronic obstructive pulmonary disease) Current Visit: Yes Status: Acute Code(s): J44.9 - CHRONIC OBSTRUCTIVE PULMONARY DISEASE, UNSPECIFIED SNOMED Code(s): 14664822 (5) End stage renal disease Current Visit: Yes Status: Acute Priority: High Code(s): N18.6 - END STAGE RENAL DISEASE SNOMED Code(s): 68435827 (6) COVID Current Visit: Yes Status: Acute Code(s): U07.1 - COVID-19 SNOMED Code(s): 599778418 Plan: Appreciate multiple consultants. Check CBC and CMP in the morning. Patient seen and evaluated by nurse practitioner, physician in agreement with plan.
--- NOTE | 2024-09-04 08:57 | P.PN ---
Subjective Progress Note Date: 09/04/24 Principal diagnosis: HPI: This lady has history of multiple comorbid conditions including multiple myeloma, end-stage renal disease on hemodialysis, lung nodules possible malignancy. We are seeing her for atrial fibrillation which is paroxysmal in nature. Yesterday she was in sinus rhythm today she is in atrial fibrillation rate is fairly well-controlled. She is currently on amiodarone 400 mg and also on oral metoprolol. Cardizem drip was stopped because the rate was slower. She is on a ventilator. Atrial fibrillation is a between 90 and 100 today off Cardizem drip. She is on a small dose of Levophed. She has multiple comorbid conditions including COVID infection COPD and lung mass. Today she is in atrial fibrillation rate is fairly well-controlled we will continue amiodarone through NG tube and metoprolol. Prognosis remains a poor. PHYSICIAL EXAM: Vitals are stable JVD not evident S1-S2 with irregularity rhythm short systolic murmur, ventilator assisted breath sounds abdomen is soft groin was not examined lower extremities reveal diminished pulses. IMPRESSION: 1. Paroxysmal atrial fibrillation. 2. Acute respiratory failure on the ventilator. 3. Anemia requiring blood transfusions not anticoagulated. 4. End-stage renal disease. 5. Lung mass probable malignancy and multiple myeloma as well. RECOMMENDATIONS: Patient's blood pressure is somewhat better we can wean off the Levophed if possible continue other supportive care prognosis remains poor. Objective - Vital Signs Vital signs: Vital Signs Temp 97.6 F 09/04/24 04:00 Pulse 98 09/04/24 06:30 Resp 19 09/04/24 06:30 BP 94/51 09/04/24 06:15 Pulse Ox 96 09/04/24 06:15 FiO2 40 09/04/24 05:27 Intake & Output 09/03/24 09/04/24 09/04/24 18:59 06:59 18:59 Intake Total 0141.513 6440.550 54.084 Output Total 880 30 Balance 3566.713 8640.550 54.084 Weight 63.5 kg 65.7 kg Intake: IV 196 409 .9NS KVO 160 240 .9NS Pressure Bag 36 69 Piperacillin-Tazobactam 3 100 .375 gm In Sodium Chloride 0.9% 100 ml @ 25 mls/hr IVPB Q12H [facility] Rx# :[id number] Intake, IV Titration 239.835 395.550 54.084 Amount Diltiazem 125 mg In 104.417 Sodium Chloride 0.9% 100 ml @ 5 MG/HR 5 mls/hr IV .Q24H [facility] Rx#:[id number] Norepinephrine 8 mg In 186.495 202.074 26.398 Sodium Chloride 0.9% 250 ml @ 0.03 MCG/KG/MIN 3. 106 mls/hr IV .Q24H [facility] Rx#:[id number] Vasopressin 20 unit In 32.207 Sodium Chloride 0.9% 50 ml @ 0.03 UNITS/MIN 4.59 mls/hr IV .Q11H7M [facility] Rx# :[id number] propofoL 1,000 mg In 53.34 56.852 27.686 Empty Bag 1 bag @ 15 MCG/ KG/MIN 4.815 mls/hr IV . [id number] [facility] Rx#:[id number] Tube Feeding 615 605 Hemodialysis 800 Other 30 90 Output: Urine 80 30 Hemodialysis 641 Hemodialysis Net Amount 159 Other: Voiding Method Indwelling Catheter Indwelling Catheter # Bowel Movements 1 2 ABP, PAP, CO, CI - Last Documented Arterial Blood Pressure 94/56 - Labs CBC & Chem 7: 09/03/24 04:30 09/03/24 04:30 Labs: Abnormal Lab Results - Last 24 Hours (Table) 09/03/24 09/03/24 09/03/24 Range/Units 04:30 11:49 17:14 ABG pO2 (83-108) mmHg ABG O2 Saturation (94-97) % POC Glucose (mg/dL) 183 H 213 H (70-110) mg/dL Phosphorus 7.9 H (2.5-4.5) mg/dL 09/03/24 09/04/24 09/04/24 Range/Units 23:28 05:07 06:09 ABG pO2 73 L (83-108) mmHg ABG O2 Saturation 93.7 L (94-97) % POC Glucose (mg/dL) 225 H 171 H (70-110) mg/dL Phosphorus (2.5-4.5) mg/dL Microbiology - Last 24 Hours (Table) 09/01/24 15:32 Gram Stain - Final Sputum Sputum Culture - Final 09/01/24 13:55 Blood Culture - Preliminary Blood
[2024-09-04] MEDS ORDERED: methylPREDNISolone SOD SUCCI 40 MG/ML 1 ML VIAL IV SCH (09:00)
--- NOTE | 2024-09-04 09:02 | P.PN ---
Subjective Progress Note Date: 09/03/24 Principal diagnosis: Reason for follow-up is fever Patient is a 64-year-old female with a past medical history significant for COPD hypertension osteoarthritis end-stage renal disease on dialysis to the right subclavian permacatheter since May 2024 initially presented to hospital with right leg pain subsequently did have acute respiratory failure requiring intubation tested positive for COVID-19 starting a fever on 08/28/2024 prompted this consultation on 09/01/2024 On today's visit that is 09/03/2023, patient did have improvement in her fever pattern with a temperature of 100.4 F this morning patient remains to be debated on the vent FiO2 is currently stable at 40% no significant purulent secretion through the ET requiring some pressor support note the changes reported by the nursing staff. Patient white count is 2.3 creatinine is 2.96 culture repeat is currently pending Objective - Vital Signs Vital signs: Vital Signs Temp 99.0 F 09/03/24 11:30 Pulse 94 09/03/24 13:00 Resp 19 09/03/24 13:00 BP 94/52 09/03/24 11:00 Pulse Ox 92 L 09/03/24 13:00 FiO2 40 09/03/24 12:00 Intake & Output 09/02/24 09/03/24 09/03/24 18:59 06:59 18:59 Intake Total 5429.011 5421.983 572.875 Output Total 84 0 40 Balance 8651.821 4684.983 532.875 Weight 63.5 kg 63.5 kg Intake: IV 556 356 81 .9NS KVO 60 .9NS Pressure Bag 66 36 21 Piperacillin-Tazobactam 3 100 .375 gm In Sodium Chloride 0.9% 100 ml @ 25 mls/hr IVPB Q12H [facility] Rx# :[id number] Sodium Chloride 0.9% 500 240 220 ml 500 ml @ 20 mls/hr IV .Q24H [facility] Rx#:[id number] Vancomycin 1,000 mg In 250 Sodium Chloride 0.9% 250 ml @ 125 mls/hr IVPB ONCE [facility] Rx#:[id number] Intake, IV Titration 126.027 477.983 151.875 Amount Diltiazem 125 mg In 113.083 Sodium Chloride 0.9% 100 ml @ 5 MG/HR 5 mls/hr IV .Q24H [facility] Rx#:[id number] Norepinephrine 8 mg In 53.313 244.686 98.535 Sodium Chloride 0.9% 250 ml @ 0.03 MCG/KG/MIN 3. 106 mls/hr IV .Q24H [facility] Rx#:[id number] propofoL 1,000 mg In 72.714 120.214 53.34 Empty Bag 1 bag @ 15 MCG/ KG/MIN 4.815 mls/hr IV . [id number] [facility] Rx#:[id number] Tube Feeding 480 440 340 Other 90 60 Output: Urine 84 0 40 Other: Voiding Method Indwelling Catheter Indwelling Catheter Indwelling Catheter # Bowel Movements 1 1 ABP, PAP, CO, CI - Last Documented Arterial Blood Pressure 113/50 - Exam GENERAL DESCRIPTION: An elderly female intubated on the vent RESPIRATORY SYSTEM: Unlabored breathing , decreased breath sounds at bases HEART: S1 S2 regular rate and rhythm , ABDOMEN: Soft , no tenderness EXTREMITIES: No edema feet - Labs CBC & Chem 7: 09/03/24 04:30 09/03/24 04:30 Labs: Abnormal Lab Results - Last 24 Hours (Table) 09/02/24 09/02/24 09/03/24 Range/Units 17:37 23:23 04:30 WBC 2.3 L (3.8-10.6) k/uL RBC 2.46 L (3.80-5.40) m/uL Hgb 7.0 L (11.4-16.0) gm/dL Hct 21.8 L (34.0-46.0) % RDW 20.4 H (11.5-15.5) % Plt Count 81 L (150-450) k/uL Lymphocytes # 0.3 L (1.0-4.8) k/uL Sodium (137-145) mmol/L Chloride (98-107) mmol/L Carbon Dioxide (22-30) mmol/L BUN (7-17) mg/dL Creatinine (0.52-1.04) mg/dL Glucose (74-99) mg/dL POC Glucose (mg/dL) 201 H 186 H (70-110) mg/dL Calcium (8.4-10.2) mg/dL Phosphorus (2.5-4.5) mg/dL 09/03/24 09/03/2425 Range/Units 04:30 04:30 06:18 WBC (3.8-10.6) k/uL RBC (3.80-5.40) m/uL Hgb (11.4-16.0) gm/dL Hct (34.0-46.0) % RDW (11.5-15.5) % Plt Count (150-450) k/uL Lymphocytes # (1.0-4.8) k/uL Sodium 132 L (137-145) mmol/L Chloride 96 L (98-107) mmol/L Carbon Dioxide 20 L (22-30) mmol/L BUN 113 H* (7-17) mg/dL Creatinine 2.96 H (0.52-1.04) mg/dL Glucose 151 H (74-99) mg/dL POC Glucose (mg/dL) 145 H (70-110) mg/dL Calcium 8.3 L (8.4-10.2) mg/dL Phosphorus 7.9 H (2.5-4.5) mg/dL 09/03/24 Range/Units 11:49 WBC (3.8-10.6) k/uL RBC (3.80-5.40) m/uL Hgb (11.4-16.0) gm/dL Hct (34.0-46.0) % RDW (11.5-15.5) % Plt Count (150-450) k/uL Lymphocytes # (1.0-4.8) k/uL Sodium (137-145) mmol/L Chloride (98-107) mmol/L Carbon Dioxide (22-30) mmol/L BUN (7-17) mg/dL Creatinine (0.52-1.04) mg/dL Glucose (74-99) mg/dL POC Glucose (mg/dL) 183 H (70-110) mg/dL Calcium (8.4-10.2) mg/dL Phosphorus (2.5-4.5) mg/dL Microbiology - Last 24 Hours (Table) 09/01/24 15:32 Gram Stain - Preliminary Sputum Sputum Culture - Preliminary 09/01/24 13:55 Blood Culture - Preliminary Blood Assessment and Plan (1) Fever Current Visit: Yes Status: Acute Code(s): R50.9 - FEVER, UNSPECIFIED SNOMED Code(s): 169180090 (2) Leukopenia Current Visit: Yes Status: Acute Code(s): D72.819 - DECREASED WHITE BLOOD CELL COUNT, UNSPECIFIED SNOMED Code(s): 09110127 (3) Sepsis Current Visit: Yes Status: Acute Code(s): A41.9 - SEPSIS, UNSPECIFIED ORGANISM SNOMED Code(s): 81069684 Plan: 1patient with sepsis in this patient who did have fever and leukopenia patient has been in the hospital for more than 10 days before this initial evaluation with initial presentation to hospital with right leg pain subsequently did have acute respiratory failure requiring intubation and admission to ICU on 08/23/2024 patient was afebrile initially started running a fever as of 08/28/2024 however no culture done at that point 2blood culture has been obtained from the dialysis catheter but if any results are currently positive UA has been negative inflammatory markers are pending 3currently waiting for PICC placement and removal of the central lines tube should be sent for the culture also considered change of the art lines 4in view of improvement in the fever pattern will Continue vancomycin and Zosyn while waiting for the culture to finalize Dictation was produced using [employer] dictation software. please excuse any grammatical, word or spelling errors. Time with Patient: Less than 30
[2024-09-04 09:04] LABS: Anisocytosis Moderate; Hypochromasia Moderate; MCH 28.8 pg (25.0-35.0); MCHC 32.4 g/dL (31.0-37.0); Mean Platelet Volume 11.2; Platelet Count 85 k/uL (150-450); RBC 2.22 m/uL (3.80-5.40); RDW 20.4 % (11.5-15.5)
[2024-09-04 09:16] LABS: WBC 1.4 k/uL (3.8-10.6)
--- NOTE | 2024-09-04 09:16 | XR ---
EXAMINATION TYPE: XR chest 1V portable DATE OF EXAM: 09/04/2024 9:05 AM COMPARISON: Chest radiographs from same day. CLINICAL INDICATION: Female, 64 years old with history of PICC line insetion; [facility] TECHNIQUE: XR chest 1V portable Frontal view of the chest. FINDINGS: Lungs/Pleura: Prominent interstitial lung markings are seen scattered throughout the lungs. No eviden ce of focal consolidation, pneumothorax or pleural effusion. Pulmonary vascularity: Unremarkable. Heart/mediastinum: Cardiomediastinal silhouette is unremarkable. Musculoskeletal: No acute osseous pathology. Other findings: None Lines/Tubes: Endotracheal tube with distal tip 5.3 cm above the danilo. Nasogastric tube with its distal tip and side-port projecting under the diaphragm. Right internal jugular central venous catheter with distal tip at the cavoatrial junction. Left central venous catheter with distal tip at the cavoatrial junction. Right-sided PICC line with distal tip at the cavoatrial junction. IMPRESSION: Right PICC with tip in appropriate position. Other central venous catheters in satisfactory position. Support tubes in satisfactory position. Similar appearance of the lung parenchyma. [facility], , 09/04/2024 9:13 AM
[2024-09-04 09:18] LABS: HCT 19.8 % (34.0-46.0); HGB 6.4 gm/dL (11.4-16.0)
[2024-09-04 09:22] LABS: ALT 26 U/L (4-34); AST 9 U/L (14-36); Albumin 2.4 g/dL (3.5-5.0); Alkaline Phosphatase 68 U/L (38-126); Anion Gap 17 mmol/L; Calcium 8.3 mg/dL (8.4-10.2); Carbon Dioxide 19 mmol/L (22-30); Chloride 97 mmol/L (98-107); Glucose 146 mg/dL (74-99); Potassium 5.2 mmol/L (3.5-5.1); Sodium 133 mmol/L (137-145); Total Bilirubin 0.3 mg/dL (0.2-1.3); Total Protein 5.7 g/dL (6.3-8.2)
[2024-09-04 09:29] LABS: African American GFR (CKD) 20 (>60 ml/min/1.73 sqM); Non-African American GFR(CKD) 17 (>60 ml/min/1.73 sqM)
[2024-09-04 10:03] LABS: Blood Urea Nitrogen 113 mg/dL (7-17)
[2024-09-04] MEDS: dexAMETHasone 4 MG TAB PO SCH (10:21)
--- NOTE | 2024-09-04 10:40 | P.PN ---
Subjective Patient is seen in follow-up for end-stage renal disease. She is maintained on hemodialysis on Tuesday schedule. Required higher vasopressor support during dialysis yesterday so treatment was cut short. Hemoglobin 6.4 today. No improvement in mentation. Vital signs are stable. On Levophed. General: Resting in bed. HEENT: Intubated. On 40% FiO2. LUNGS: Scattered rhonchi. HEART: Rate and Rhythm are regular. ABDOMEN: No distention. EXTREMITITES: Trace edema. Objective - Vital Signs Vital signs: Vital Signs Temp 97.6 F 09/04/24 04:00 Pulse 98 09/04/24 06:30 Resp 19 09/04/24 06:30 BP 94/51 09/04/24 06:15 Pulse Ox 96 09/04/24 06:15 FiO2 40 09/04/24 08:48 Intake & Output 09/03/24 09/04/24 09/04/24 18:59 06:59 18:59 Intake Total 8653.465 6003.550 69.666 Output Total 880 30 Balance 9683.721 8911.550 69.666 Weight 63.5 kg 65.7 kg Intake: IV 196 409 .9NS KVO 160 240 .9NS Pressure Bag 36 69 Piperacillin-Tazobactam 3 100 .375 gm In Sodium Chloride 0.9% 100 ml @ 25 mls/hr IVPB Q12H [facility] Rx# :[id number] Intake, IV Titration 239.835 395.550 69.666 Amount Diltiazem 125 mg In 104.417 Sodium Chloride 0.9% 100 ml @ 5 MG/HR 5 mls/hr IV .Q24H [facility] Rx#:[id number] Norepinephrine 8 mg In 186.495 202.074 35.560 Sodium Chloride 0.9% 250 ml @ 0.03 MCG/KG/MIN 3. 106 mls/hr IV .Q24H [facility] Rx#:[id number] Vasopressin 20 unit In 32.207 Sodium Chloride 0.9% 50 ml @ 0.03 UNITS/MIN 4.59 mls/hr IV .Q11H7M [facility] Rx# :[id number] propofoL 1,000 mg In 53.34 56.852 34.106 Empty Bag 1 bag @ 15 MCG/ KG/MIN 4.815 mls/hr IV . [id number] [facility] Rx#:[id number] Tube Feeding 615 605 Hemodialysis 800 Other 30 90 Output: Urine 80 30 Hemodialysis 641 Hemodialysis Net Amount 159 Other: Voiding Method Indwelling Catheter Indwelling Catheter # Bowel Movements 1 2 ABP, PAP, CO, CI - Last Documented Arterial Blood Pressure 94/56 - Labs CBC & Chem 7: 09/04/24 08:51 09/04/24 08:51 Labs: Abnormal Lab Results - Last 24 Hours (Table) 09/03/24 09/03/24 09/03/24 Range/Units 11:49 17:14 23:28 WBC (3.8-10.6) k/uL RBC (3.80-5.40) m/uL Hgb (11.4-16.0) gm/dL Hct (34.0-46.0) % RDW (11.5-15.5) % Plt Count (150-450) k/uL ABG pO2 (83-108) mmHg ABG O2 Saturation (94-97) % Sodium (137-145) mmol/L Potassium (3.5-5.1) mmol/L Chloride (98-107) mmol/L Carbon Dioxide (22-30) mmol/L BUN (7-17) mg/dL Creatinine (0.52-1.04) mg/dL Glucose (74-99) mg/dL POC Glucose (mg/dL) 183 H 213 H 225 H (70-110) mg/dL Calcium (8.4-10.2) mg/dL AST (14-36) U/L Total Protein (6.3-8.2) g/dL Albumin (3.5-5.0) g/dL 09/04/24 09/04/24 09/04/24 Range/Units 05:07 06:09 08:51 WBC (3.8-10.6) k/uL RBC (3.80-5.40) m/uL Hgb (11.4-16.0) gm/dL Hct (34.0-46.0) % RDW (11.5-15.5) % Plt Count (150-450) k/uL ABG pO2 73 L (83-108) mmHg ABG O2 Saturation 93.7 L (94-97) % Sodium 133 L (137-145) mmol/L Potassium 5.2 H (3.5-5.1) mmol/L Chloride 97 L (98-107) mmol/L Carbon Dioxide 19 L (22-30) mmol/L BUN 113 H* (7-17) mg/dL Creatinine 2.78 H (0.52-1.04) mg/dL Glucose 146 H (74-99) mg/dL POC Glucose (mg/dL) 171 H (70-110) mg/dL Calcium 8.3 L (8.4-10.2) mg/dL AST 9 L (14-36) U/L Total Protein 5.7 L (6.3-8.2) g/dL Albumin 2.4 L (3.5-5.0) g/dL 09/04/24 Range/Units 08:51 WBC 1.4 L* (3.8-10.6) k/uL RBC 2.22 L (3.80-5.40) m/uL Hgb 6.4 L* (11.4-16.0) gm/dL Hct 19.8 L* (34.0-46.0) % RDW 20.4 H (11.5-15.5) % Plt Count 85 L (150-450) k/uL ABG pO2 (83-108) mmHg ABG O2 Saturation (94-97) % Sodium (137-145) mmol/L Potassium (3.5-5.1) mmol/L Chloride (98-107) mmol/L Carbon Dioxide (22-30) mmol/L BUN (7-17) mg/dL Creatinine (0.52-1.04) mg/dL Glucose (74-99) mg/dL POC Glucose (mg/dL) (70-110) mg/dL Calcium (8.4-10.2) mg/dL AST (14-36) U/L Total Protein (6.3-8.2) g/dL Albumin (3.5-5.0) g/dL Microbiology - Last 24 Hours (Table) 09/01/24 15:32 Gram Stain - Final Sputum Sputum Culture - Final 09/01/24 13:55 Blood Culture - Preliminary Blood Assessment and Plan Plan: Assessment: 1. End-stage renal disease maintained on hemodialysis on Tuesday schedule via permacath. 2. Acute COVID-19 infection. 3. Acute hypoxic respiratory failure. 4. A-fib with RVR being followed by cardiology. 5. Staph epi bacteremia. Possibly contamination. Repeat cultures have been negative. 6. Right leg pain. Questionable groin mass versus enlarged lymph node versus joint effusion. Possible MRI to further evaluate down the road. 7. Multiple myeloma. Also noted to have pulmonary nodule. Oncology following. Treatment currently on hold due to acute infection. 8. Anemia of chronic kidney disease and also component of underlying multiple myeloma. 9. Volume overload. Improved with ultrafiltration. 10. Hyperkalemia secondary to chronic kidney disease. Questionable GI bleed. 11. Chronic kidney disease mineral bone disease. Phosphorus level 7.9 dated September 03, 2024. Plan: Hemodialysis today as potassium is on the higher side. Another treatment tomorrow. IV DDAVP x 1 dose today. Will also received blood transfusion. Maintain tube feeds. Wean FiO2 and Levophed. Add Renvela. Prognosis guarded.
[2024-09-04 11:39] LABS: Glucose,Whole Blood 151 mg/dL (70-110)
[2024-09-04] MEDS: DESMOPRESSIN ACETATE 20 MCG in SODIUM CHLORIDE 0.9% 50 ML IVPB ONE (11:39)
--- NOTE | 2024-09-04 12:05 | P.PN ---
Subjective Progress Note Date: 09/04/24 Principal diagnosis: Acute hypoxic respiratory failure, multifactorial This is a 63-year-old female patient with a known history of multiple myeloma receiving chemotherapy recently, suspected lung cancer with a PET positive right upper lobe 1.7 cm spiculated nodule, chronic obstructive pulmonary disease, chronic tobacco dependence, hypertension, hypothyroidism, end-stage renal disease receiving hemodialysis. She was admitted here on 08/21/2024 with complaints of right lower extremity pain. Been undergoing evaluation. Today on August 23, 2024 she had rapid response called on her twice for increasing shortness of breath and hypoxemia. She was subsequently transferred to the intensive care unit. She was placed on BiPAP / and 100% FiO2. She continued to do poorly and was subsequently intubated and placed on the mechanical ventilator. Currently on assist-control mode at a rate of 20, tidal volume 350, FiO2 100% and a PEEP of 5. She did undergo a left subclavian triple-lumen catheter placement and a right radial arterial line placement. Chest x-ray revealed satisfactory positions of the lines. Subtle scattered opacities may represent atypical pneumonia. Finding out today she is positive for COVID-19. Arterial blood gases post intubation revealed a PaO2 greater than 420, pCO2 of 60 and a pH of 7.28. FiO2 will be decreased accordingly. White count 8.5. Hemoglobin 8.7. Platelets 404. Sodium 129. Potassium 5.7. Bicarb 24. BUN 57. Creatinine 5.92. Glucose 82. She is sedated on propofol at 15 mcg/kg/min. The patient is seen today August 24, 2024 in follow-up in the intensive care unit. She remains intubated on the mechanical ventilator and assist-control mode at a rate of 20, tidal volume 350, FiO2 50% and a PEEP of 5. Morning blood gases revealed a PaO2 of 99. pCO2 48. pH 7.35. She is still requiring norepinephrine at 7 mcg/min. Cardizem drip at 5 mg an hour. Propofol at 40 mcg/kg/min. Lactated Ringer's at 100 mL/h. She is being nourished with vital HP at 10 mL/h with a goal of 46 mL/h. She remains on Symbicort, albuterol, Decadron. She is on Lovenox for DVT prophylaxis. Protonix for GI prophylaxis. Blood cultures now showing gram-positive cocci in clusters. Sputum culture pending. Vancomycin will be given x 1 until further cultures result. White count 6.6. Hemoglobin 7.0. Platelets 352. Sodium 132. Potassium 4.8. Bicarb 25. BUN 32. Creatinine 3.32. Glucose 108. The patient is seen today August 25, 2024 in follow-up in the intensive care unit. She remains intubated on the mechanical ventilator currently in settings of assist-control mode at a rate of 20, tidal volume 350, FiO2 50% and a PEEP of 5. Morning blood gases revealed a PaO2 of 91. pCO2 of 53 and a pH of 7.28. Chest x-ray reveals chronic and for somatic changes with mild cardiomegaly and patchy bilateral multifocal edema. No significant change. She remains on norepinephrine at 4 mcg/min. Cardizem drip is off. She was having sinus pauses yesterday. She has issues with intermittent atrial flutter. She is sedated on propofol at 40 mcg/kg/min. Lactated Ringer's at KVO. She is being nourished with vital HP at 10 mL/h. He received vancomycin x 1 for Staphylococcus epidermidis blood culture. Sputum culture revealed no growth. White count 12.9. Hemoglobin 7.5. Platelets 423. Sodium 133. Potassium 5.0. Bicarb 21. BUN 58. Creatinine 4.48. Glucose 134. She remains on Symbicort, albuterol, Decadron. Lovenox for DVT prophylaxis. Protonix for GI prophylaxis. The patient is seen today August 26, 2024 in follow-up in the intensive care unit. She remains intubated on mechanical ventilator and assist-control mode with a rate of 20, tidal valve 350, FiO2 50% and a PEEP of 5. Morning blood gases revealed a PaO2 of 90. pCO2 57 and a pH of 7.28. She did receive hemodialysis with 500 mL of fluid removed yesterday. She remains on norepinephrine at 1.7 mcg/min. Propofol at 50 mcg/kg/min. Lactated Ringer's at KVO. Vital HP at 10 mL an hour with a goal of 46 mL/h. She is continued with high residuals. May need Reglan if no improvement. She remains on albuterol, Symbicort, Decadron. Lovenox for DVT prophylaxis. Show chronic and for somatic changes and mild cardiomegaly with small to tiny left pleural effusion and patchy bilateral multifocal edema and/or acute infiltrates. No significant change. Blood culture was positive for Staphylococcus epidermidis. Sputum culture revealed no growth. White count 13.3. Hemoglobin 7.5. Platelets 364. Sodium 133. Potassium 5.1. Bicarb 24. BUN 41. Creatinine 2.91. Glucose 137. Currently in a +250 mL balance. On 08/27/2024, this patient is being seen for a follow-up. The patient remains intubated on the mechanical ventilator due to a combination of COPD and CHF exacerbation and COVID-19 infection. Noted the patient also has history of multiple myeloma receiving treatment on an outpatient basis. The patient has end-stage renal disease on hemodialysis and the patient also has history of hypertension hypothyroidism and during the course of the illness, the patient was also found to have a spiculated 1.7 cm right upper lobe lesion that was PET avid. This morning, the patient remains intubated on the mechanical ventilator. The patient is on assist-control mode at rate of 20, tidal volume of 350, FiO2 50% with a PEEP of 5. The patient remains sedated with propofol at 50 mc. The blood gases from today showed a pH of 7.26 with a pCO2 of 56 and pO2 of 70 and the chest x-ray shows stable perihilar and lower lobe pulmonary infiltrates. ET tube is around 5 cm above the danilo. The patient also has a dialysis permacath port in the right subclavian. Blood culture was positive for coagulase-negative staph and Staph epidermidis on 08/23/2024. Sputum culture was negative. The patient is currently on Decadron 8 mg p.o. daily Symbicort. No antibiotic coverage for now. is also on Lovenox for DVT prophylaxis at a dose of 30 mg subcu on a daily basis. Hemodynamically, the patient is requiring a low-dose norepinephrine for blood pressure support. Echocardiogram done on 08/23/2024 shows mild impairment of LV function with an EF of around 40 to 45% evidence of severe pulmonary hypertension and RV dilatation and estimated pulmonary artery pressures of around 56. Blood work from today shows a white cell count of 10.6, hemoglobin 7.2 and platelet count of 333. The sodium level is sodium is 135 at 135 with a potassium of 5.3, BUN 70 creatinine of 4.34. She is still on NE low dose at 0.04mc/kg/min. Her fluid balance is 1.4 L over the past 24 hours. Her last hemodialysis session was on 08/25/2024 with a total of 1 L of fluid was removed. She is on Vital HP at 30 cc. hr. Residuals are oin 250 cc range On 08/28/2023, the patient is being seen for a follow-up. Remains intubated on mechanical ventilator. Patient remains on propofol running at 45 mcg/kg/min. On today's evaluation, the patient is on assist-control mode with rate of 20, tidal volume of 450, FiO2 of 50% and the PEEP was brought up to 8 as the morning blood gases showed a pH of 7.38 with a pCO2 of 50 and pO2 of 66 and this was an FiO2 of 50%. The chest x-ray findings are essentially unchanged. The patient continues to have perihilar and lower lobe pulmonary infiltrates, patchy, slightly worse on the left and there is also some background cardiomegaly. The patient underwent hemodialysis yesterday. The patient is end-stage renal disease and she is currently on hemodialysis. She remains on norepinephrine which is running at 0.1 mcg/kg/min and the patient remains on vasopressin physiologic dose at 0.03 units. The patient has been having difficulties with atrial fibrillation since yesterday. Cardiology has been involved in the case and the patient was started on Cardizem drip and Cardizem drip is running at 5 mg an hour. Nevertheless, the patient continues to be in A-fib and she remains tachycardic. On a separate note, her hemoglobin is at 6.7. Still awaiting an appropriate manage for the packed RBC transfusion. The rest of the blood work shows a white cell count of 7.9, platelet count of 258, BUN is 48 with a creatinine of 2.8, sodium is at 132, chloride is 94 and a serum bicarb is at 27 at this point. Remains on Decadron 8 mg p.o. daily. Afebrile. Receiving enteral feeding for nutritional support. On 08/29/2024, the patient is being seen for a follow-up. The patient remains intubated on the mechanical ventilator. This morning, the patient is on propofol running at 30 mcg/kg/min. The patient is on mechanical ventilator assist-control mode rate of 20, tidal volume of 450, FiO2 50% with a PEEP of 8. Blood gas from today showed a pH of 7.27 with a pCO2 of 53 and pO2 of 97. CAT scan of the brain was negative. CAT scan of the chest was also completed yesterday and it showed interstitial infiltrates bilaterally consistent with COVID-19 pneumonia. At the same time, the patient had areas of consolidation lung bases left more than right highly suspicious for a bacterial infection. Based on that, the patient was started on a combination of Zosyn and vancomycin. The patient received a unit of packed RBC and the hemoglobin today is at 7.3. The patient remains on low-dose norepinephrine running at 0.08 mcg/kg/min. IV fluids are currently at KVO. Receiving vital high-protein at rate of 40 cc an h our. The patient encountered atrial fibrillation and she is currently back in normal sinus rhythm. She remains on amiodarone at 0.5 mg/min. Last hemodialysis session was on 08/27/2024. The white cell count is at 4.7, hemoglobin 7.3 and a platelet count of 188. Sodium is at 131 with a potassium level of 5.1, BUN is 81 with a creatinine of 3.3. No other significant events overnight. The patient is currently afebrile. Overnight, the patient was having low-grade fever On 08/30/2024, the patient is being seen for a follow-up. The patient remains intubated on the mechanical ventilator. This morning, the patient is on propofol running at 15 mcg/kg/min. She is on assist-control mode of mechanical ventilation and the patient is on assist-control rate of 20, tidal volume of 450, FiO2 50% with a PEEP of 6. Blood gas showed pH of 7.26 with a pCO2 of 57 and pO2 of 78. Chest x-ray shows stable, probably slightly improved perihilar and lower lobe pulmonary filtration as the patient is currently on a combination of Zosyn and vancomycin. The patient is also to undergo hemodialysis today. Hemodynamically, the patient is in normal sinus rhythm. The patient is on no pressors. The patient is dealing vital high-protein at rate of 40 cc an hour. Blood work from today shows a white cell count of 3.7 with a hemoglobin 8.2 and a platelet count of 143. The sodium is at 130, potassium is at 5.9 with a chloride of 93 and a bicarb of 19. BUN is 119 with a potassium level of 3.8. The patient remains on Decadron. Rest of the medications are essentially unchanged. The patient was given a sedation holiday yesterday and the patient was able to arouse and follows some simple commands. Not ready for extubation yet. Hemoglobin has been stable. No signs of any bleeding. 08/31/2024, the patient is being seen for a follow-up. The patient remains on propofol running at 25 mcg/kg/min. Breathing seems to be labile and the patient continues to have a high minute ventilation of around 16 to 17 L/min. She remains on assist-control mode of mechanical ventilation at rate of 20, tidal vo lume of 500, FiO2 50% with a PEEP of 6. Blood gas showed a pH of 7.37 with a pCO2 of 45 and pO2 of 74. The chest x-ray findings are stable and the patient stable bilateral pulmonary filtrates. The patient underwent hemodialysis yesterday and a total of 650 cc of fluid was removed. Postdialysis, the patient was placed on norepinephrine which is currently running at 0.06 mcg/kg/min. The patient is in a normal sinus rhythm and she converted as of 3 AM this morning. She is on vital high-protein at rate of 40 cc an hour. Afebrile for now. White cell count is down to 1.7 with a hemoglobin 7.7 and a platelet count of 106. Sodium is at 133, potassium is at 4.7, bicarb is 25 with a BUN of 19 and creatinine of 2.6. Vancomycin trough level was 18. On 09/01/2024, the patient is being seen for a follow-up. Calm and comfortable, remains on propofol at 20 mcg/kg/min. This morning, her breathing is less labored and her minute ventilation is down to 12. She is on a pressure control mode of mechanical ventilation at rate of 20, pressure control of 20, I, 0.8, FiO2 of 50% with a PEEP of 6. Chest x-ray findings are unchanged. The patient is to undergo another session of hemodialysis today. Blood gas from today shows a pH of 7.39 with a pCO2 of 39 and pO2 of 101. Cardiac rhythm is sinus and the patient remains on a combination of oral amiodarone and metoprolol. The patient remains on vital high-protein at rate of 40 cc an hour. No pressors for now. The white cell count of 2.2 renal cell 0.5 and a platelet count of 92. Sodium is 134, BUN is 117 and a creatinine of 3.37. Potassium level is at 5.1. Serum bicarb is at 18. Remains on Zosyn and vancomycin. Sputum cultures have been negative. Blood cultures been negative. Remains on Lovenox 30 mg subcu for DVT prophylaxis. Remains on Decadron 8 mg p.o. on a daily basis. On 09/02/2024, the patient is being seen for a follow-up. The patient remains on propofol running at 30 mcg/kg/min. Calm and comfortable on pressure control mode of mechanical ventilation at rate of 20, pressure control of 20, FiO2 50% with a PEEP of 5. Blood gas showed a pH of 7.37 with a pCO2 of 34 and pO2 of 103. Chest x-ray findings are stable. Remains on low-dose norepinephrine running at 0.1 mcg/kg/min. Hemodialysis performed yesterday a total of 650 cc of fluid was removed. She is in A-fib/flutter and the patient remains on oral amiodarone 400 mg p.o. twice a day and metoprolol 25 mg p.o. twice a day. She remains on Lovenox 30 mg subcu for DVT prophylaxis. She remains on Decadron. The blood work from today shows a white cell count of 1.8 with a hemoglobin of 7.5 and a platelet count of 77. Platelet counts are stable. BUN is 84 with a creatinine of 2.3 and a sodium levels at 132. Vancomycin level is at 17. Patient was evaluated today in the ICU on 09/03/2024 remains intubated and mechanically ventilated, she is on pressure control mode of mechanical ventilation with PI of 20, DI 0.8, rate 14 FiO2 40% and PEEP of 5 ABG showed a pO2 of 75 pCO2 37 pH of 7.38 hence no changes were made in vent settings. Patient requiring norepinephrine at 0.1 mcg/kg/min also on propofol 30 mcg/kg/min Cardizem 5 mg/h she is receiving vital HP at 40 cc/h IV fluid at KVO remains on Zosyn, and she is on hemodialysis today, when I saw the patient she was actually receiving hemodialysis the plan is to remove 1 L. Patient had COV ID over 10 days ago, and she is out of precautions. Her peak airway pressures 26 Plateau pressure is 19. Chest x-ray continues to show multifocal airspace opacities. WBC count is 2.3 hemoglobin is 7 electrolytes are normal BUN is 113 creatinine 2.96 Patient seen today on 09/04 2024 patient, patient remains intubated and mechanically ventilated, he is on pressure control mode of mechanical venti lation with pressure control of 20 rate 18 TI 0.8 FiO2 40% and PEEP of 5 ABG showed a pO2 of 73 pCO2 39 pH of 7.37 hence no adjustments were made on the ventilator settings. Patient is still requiring norepinephrine at 0.1 mcg/kg/min propofol 25 mcg/kg/min she briefly she was on vasopressin last night which is now off, patient had episodes of bradycardia radiating down to 40 heart rate, and cardiology stopped her Cardizem. She will be given metoprolol and amiodarone as per cardiology on the case. Patient had a PICC line placed today, patient is on Decadron and I cut it down to 4 mg daily remains on Lovenox for DVT prophylaxis remains on GI prophylaxis. Patient is awake, opens her eyes, b ut does not seem to track or follow any instructions. Hence I plan to cut down the propofol further and continue to assess mental status on a daily basis. Obviously considering her mental status, she is not ready to be weaned or extubated. Chest x-ray continues to show multiple opacities in both lungs left more so than right WBC count today is low at 1.4 hemoglobin 6.4, patient will be transfused with at least 1 unit of packed RBCs for a hemoglobin of 6.4 Objective - Vital Signs Vital signs: Vital Signs Temp 97.6 F 09/04/24 04:00 Pulse 98 09/04/24 06:30 Resp 19 09/04/24 06:30 BP 94/51 09/04/24 06:15 Pulse Ox 96 09/04/24 06:15 FiO2 40 09/04/24 10:50 Intake & Output 09/03/24 09/04/24 09/04/24 18:59 06:59 18:59 Intake Total 2325.849 7223.550 73.733 Output Total 880 30 Balance 2338.592 0238.550 73.733 Weight 63.5 kg 65.7 kg Intake: IV 196 409 .9NS KVO 160 240 .9NS Pressure Bag 36 69 Piperacillin-Tazobactam 3 100 .375 gm In Sodium Chloride 0.9% 100 ml @ 25 mls/hr IVPB Q12H [facility] Rx# :[id number] Intake, IV Titration 239.835 395.550 73.733 Amount Diltiazem 125 mg In 104.417 Sodium Chloride 0.9% 100 ml @ 5 MG/HR 5 mls/hr IV .Q24H [facility] Rx#:[id number] Norepinephrine 8 mg In 186.495 202.074 35.560 Sodium Chloride 0.9% 250 ml @ 0.03 MCG/KG/MIN 3. 106 mls/hr IV .Q24H [facility] Rx#:[id number] Vasopressin 20 unit In 32.207 Sodium Chloride 0.9% 50 ml @ 0.03 UNITS/MIN 4.59 mls/hr IV .[id number] [facility] Rx# :[id number] propofoL 1,000 mg In 53.34 56.852 38.173 Empty Bag 1 bag @ 15 MCG/ KG/MIN 4.815 mls/hr IV . [id number] [facility] Rx#:[id number] Tube Feeding 615 605 Hemodialysis 800 Other 30 90 Output: Urine 80 30 Hemodialysis 641 Hemodialysis Net Amount 159 Other: Voiding Method Indwelling Catheter Indwelling Catheter # Bowel Movements 1 2 ABP, PAP, CO, CI - Last Documented Arterial Blood Pressure 94/56 - Exam GENERAL EXAM: Revealed 64-year-old female intubated mechanically ventilated opens eyes but does not follow instructions. Change from yesterday as far as her mental status is concerned HEAD: Normocephalic. EYES: Normal reaction of pupils, equal size. NOSE: Clear with pink turbinates. THROAT: Endotracheal tube and gastric tube are intact. NECK: No masses, no JVD. CHEST: No chest wall deformity. LUNGS: Crackles at the bases no rhonchi no wheezes CVS: S1 and S2 normal with no audible murmur, regular rhythm. ABDOMEN: Soft nontender no MAG no rebound no guarding SKIN: No rashes CENTRAL NERVOUS SYSTEM: Eyes, does not follow instructions, patient is on propofol, EXTREMITIES: There is no peripheral edema. No clubbing, no cyanosis. Peripheral pulses are intact. - Labs CBC & Chem 7: 09/04/24 08:51 09/04/24 08:51 Labs: Abnormal Lab Results - Last 24 Hours (Table) 09/03/24 09/03/24 09/04/24 Range/Units 17:14 23:28 05:07 WBC (3.8-10.6) k/uL RBC (3.80-5.40) m/uL Hgb (11.4-16.0) gm/dL Hct (34.0-46.0) % RDW (11.5-15.5) % Plt Count (150-450) k/uL ABG pO2 73 L (83-108) mmHg ABG O2 Saturation 93.7 L (94-97) % Sodium (137-145) mmol/L Potassium (3.5-5.1) mmol/L Chloride (98-107) mmol/L Carbon Dioxide (22-30) mmol/L BUN (7-17) mg/dL Creatinine (0.52-1.04) mg/dL Glucose (74-99) mg/dL POC Glucose (mg/dL) 213 H 225 H (70-110) mg/dL Calcium (8.4-10.2) mg/dL AST (14-36) U/L Total Protein (6.3-8.2) g/dL Albumin (3.5-5.0) g/dL 09/04/24 09/04/24 09/04/24 Range/Units 06:09 08:51 08:51 WBC 1.4 L* (3.8-10.6) k/uL RBC 2.22 L (3.80-5.40) m/uL Hgb 6.4 L* (11.4-16.0) gm/dL Hct 19.8 L* (34.0-46.0) % RDW 20.4 H (11.5-15.5) % Plt Count 85 L (150-450) k/uL ABG pO2 (83-108) mmHg ABG O2 Saturation (94-97) % Sodium 133 L (137-145) mmol/L Potassium 5.2 H (3.5-5.1) mmol/L Chloride 97 L (98-107) mmol/L Carbon Dioxide 19 L (22-30) mmol/L BUN 113 H* (7-17) mg/dL Creatinine 2.78 H (0.52-1.04) mg/dL Glucose 146 H (74-99) mg/dL POC Glucose (mg/dL) 171 H (70-110) mg/dL Calcium 8.3 L (8.4-10.2) mg/dL AST 9 L (14-36) U/L Total Protein 5.7 L (6.3-8.2) g/dL Albumin 2.4 L (3.5-5.0) g/dL 09/04/24 Range/Units 11:38 WBC (3.8-10.6) k/uL RBC (3.80-5.40) m/uL Hgb (11.4-16.0) gm/dL Hct (34.0-46.0) % RDW (11.5-15.5) % Plt Count (150-450) k/uL ABG pO2 (83-108) mmHg ABG O2 Saturation (94-97) % Sodium (137-145) mmol/L Potassium (3.5-5.1) mmol/L Chloride (98-107) mmol/L Carbon Dioxide (22-30) mmol/L BUN (7-17) mg/dL Creatinine (0.52-1.04) mg/dL Glucose (74-99) mg/dL POC Glucose (mg/dL) 151 H (70-110) mg/dL Calcium (8.4-10.2) mg/dL AST (14-36) U/L Total Protein (6.3-8.2) g/dL Albumin (3.5-5.0) g/dL Microbiology - Last 24 Hours (Table) 09/01/24 15:32 Gram Stain - Final Sputum Sputum Culture - Final 09/01/24 13:55 Blood Culture - Preliminary Blood Assessment and Plan Assessment: Impression: Acute hypoxic respiratory failure, multifactorial Acute exacerbation of COPD Acute on chronic systolic congestive heart failure Acute COVID-19 pneumonia, underlying bacterial pneumonia is not entirely ruled out. Sepsis and septic shock with hypotension secondary to pneumonia History of multiple myeloma has been on Revlimid, patient has chronic pancytopenia Right upper lobe spiculated nodule with positive PET scan needs outpatient workup it is 1.7 cm highly suspicious for bronchogenic carcinoma/adenocarcinoma Tobacco dependence syndrome End-stage renal disease, on hemodialysis Benign essential hypertension Generative joint disease Chronic anemia Status post PICC line placement on 09/04/2024 Recommendations: Continue ventilatory, patient is not ready for extubation Daily interruption of sedation and daily assessment of mental status Continue hemodialysis Continue antibiotics and continue Decadron Continue amiodarone Titrate norepinephrine accordingly patient is off vasopressin Continue GI and DVT prophylaxis Continue nutritional support/enteral feeding Transfuse with packed RBCs Continue metoprolol, off Cardizem for atrial fibrillation, being followed by cardiology Continue hemodialysis as per nephrology Patient remains critically ill, critical care time is over 30 minutes Will continue to follow Time with Patient: Greater than 30
[2024-09-04 13:36] LABS: Vancomycin,Random 20.4 ug/mL
[2024-09-04] MEDS: SEVELAMER 800 MG TAB PO SCH (14:19)
[2024-09-04 17:52] LABS: Glucose,Whole Blood 189 mg/dL (70-110)
[2024-09-05 04:43] LABS: ABG Base Excess -0.4 mmol/L; ABG HCO3 24 mmol/L (21-25); ABG Oxygen Saturation 93.7 % (94-97); ABG PCO2 34 mmHg (35-45); ABG PH 7.45 (7.35-7.45); ABG PO2 68 mmHg (83-108); ABG TCO2 25 mmol/L (19-24)
[2024-09-05 04:46] LABS: Allen Test Performed? no
[2024-09-05 05:22] LABS: Glucose,Whole Blood 145 mg/dL (70-110)
[2024-09-05 05:41] LABS: Anisocytosis Moderate; Hypochromasia Slight; MCH 28.9 pg (25.0-35.0); MCHC 32.9 g/dL (31.0-37.0); MCV 87.9 fL (80.0-100.0); Mean Platelet Volume 11.4; RBC 2.06 m/uL (3.80-5.40); RDW 20.5 % (11.5-15.5); WBC 1.6 k/uL (3.8-10.6)
[2024-09-05 05:47] LABS: Platelet Count 70 k/uL (150-450)
[2024-09-05 05:50] LABS: HCT 18.2 % (34.0-46.0)
[2024-09-05 06:21] LABS: ALT 30 U/L (4-34); AST 13 U/L (14-36); Albumin 2.2 g/dL (3.5-5.0); Alkaline Phosphatase 67 U/L (38-126); Anion Gap 12 mmol/L; Blood Urea Nitrogen 92 mg/dL (7-17); Carbon Dioxide 22 mmol/L (22-30); Chloride 97 mmol/L (98-107); Glucose 136 mg/dL (74-99); Potassium 4.9 mmol/L (3.5-5.1); Sodium 131 mmol/L (137-145); Total Bilirubin 0.6 mg/dL (0.2-1.3); Total Protein 5.6 g/dL (6.3-8.2)
[2024-09-05 06:26] LABS: African American GFR (CKD) 23 (>60 ml/min/1.73 sqM); Non-African American GFR(CKD) 20 (>60 ml/min/1.73 sqM)
--- NOTE | 2024-09-05 07:23 | XR ---
EXAMINATION TYPE: XR chest 1V portable DATE OF EXAM: 09/05/2024 5:18 AM COMPARISON: Chest radiographs from 09/04/2024 CLINICAL INDICATION: Female, 64 years old with history of mechanical ventilation; TECHNIQUE: XR chest 1V portable Frontal view of the chest. FINDINGS: Lungs/Pleura: Multifocal airspace opacities. No evidence of pneumothorax or pleural effusion. Pulmonary vascularity: Unremarkable. Heart/mediastinum: Cardiac size is normal. Musculoskeletal: No acute osseous pathology. Other findings: None Lines/Tubes: Endotracheal tube with distal tip 4.5 cm above the danilo. Nasogastric tube with its distal tip and side-port projecting under the diaphragm. Right internal jugular central venous catheter with distal tip at the cavoatrial junction. Right-sided PICC line with distal tip at the cavoatrial junction. IMPRESSION: 1. No acute cardiopulmonary disease process. 2. COPD changes. [facility], , 09/05/2024 7:21 AM
--- NOTE | 2024-09-05 07:33 | P.PN ---
Subjective Progress Note Date: 09/04/24 Principal diagnosis: Reason for follow-up is fever Patient is a 64-year-old female with a past medical history significant for COPD hypertension osteoarthritis end-stage renal disease on dialysis to the right subclavian permacatheter since May 2024 initially presented to hospital with right leg pain subsequently did have acute respiratory failure requiring intubation tested positive for COVID-19 starting a fever on 08/28/2024 prompted this consultation on 09/01/2024 On today's visit that is 09/04/2023, Patient did have resolution of her fever and is afebrile this morning patient remains to be intubated on the vent FiO2 is currently at 40% no significant purulent secretion through the ET diarrhea or any other changes reported by nursing staff. Patient white count is 1.4, creatinine is 2.78 white count is 20.4 repeat blood and sputum cultures currently pending chest x-ray no evidence of any focal consolidation pneumothorax Objective - Vital Signs Vital signs: Vital Signs Temp 97.9 F 09/04/24 20:00 Pulse 105 H 09/04/24 20:15 Resp 18 09/04/24 20:15 BP 116/65 09/04/24 19:00 Pulse Ox 94 L 09/04/24 20:15 FiO2 40 09/04/24 20:00 Intake & Output 09/04/24 09/04/24 09/05/24 06:59 18:59 06:59 Intake Total 7662.388 3752.309 195.344 Output Total 30 475 10 Balance 5438.479 8988.309 185.344 Weight 65.7 kg Intake: IV 409 453 26 .9NS KVO 240 240 20 .9NS Pressure Bag 69 63 6 Desmopressin Acetate 20 50 mcg In Sodium Chloride 0. 9% 50 ml @ 200 mls/hr IVPB ONCE ONE Rx#: [id number] Piperacillin-Tazobactam 3 100 100 .375 gm In Sodium Chloride 0.9% 100 ml @ 25 mls/hr IVPB Q12H [facility] Rx# :[id number] Intake, IV Titration 395.550 198.309 29.344 Amount Diltiazem 125 mg In 104.417 Sodium Chloride 0.9% 100 ml @ 5 MG/HR 5 mls/hr IV .Q24H [facility] Rx#:[id number] Norepinephrine 8 mg In 202.074 149.436 7.73 Sodium Chloride 0.9% 250 ml @ 0.03 MCG/KG/MIN 3. 106 mls/hr IV .Q24H [facility] Rx#:[id number] Vasopressin 20 unit In 32.207 Sodium Chloride 0.9% 50 ml @ 0.03 UNITS/MIN 4.59 mls/hr IV .Q11H7M [facility] Rx# :[id number] propofoL 1,000 mg In 56.852 48.873 21.614 Empty Bag 1 bag @ 15 MCG/ KG/MIN 4.815 mls/hr IV . [id number] [facility] Rx#:[id number] Tube Feeding 605 660 110 Hemodialysis 400 Other 90 90 30 Output: Urine 30 75 10 Hemodialysis 400 Hemodialysis Net Amount 0 Other: Voiding Method Indwelling Catheter Indwelling Catheter # Bowel Movements 2 ABP, PAP, CO, CI - Last Documented Arterial Blood Pressure 111/59 - Exam GENERAL DESCRIPTION: An elderly female intubated on the vent RESPIRATORY SYSTEM: Unlabored breathing , decreased breath sounds at bases HEART: S1 S2 regular rate and rhythm , ABDOMEN: Soft , no tenderness EXTREMITIES: No edema feet - Labs CBC & Chem 7: 09/05/24 05:24 09/05/24 05:24 Labs: Abnormal Lab Results - Last 24 Hours (Table) 09/03/24 09/04/24 09/04/24 Range/Units 23:28 05:07 06:09 WBC (3.8-10.6) k/uL RBC (3.80-5.40) m/uL Hgb (11.4-16.0) gm/dL Hct (34.0-46.0) % RDW (11.5-15.5) % Plt Count (150-450) k/uL ABG pO2 73 L (83-108) mmHg ABG O2 Saturation 93.7 L (94-97) % Sodium (137-145) mmol/L Potassium (3.5-5.1) mmol/L Chloride (98-107) mmol/L Carbon Dioxide (22-30) mmol/L BUN (7-17) mg/dL Creatinine (0.52-1.04) mg/dL Glucose (74-99) mg/dL POC Glucose (mg/dL) 225 H 171 H (70-110) mg/dL Calcium (8.4-10.2) mg/dL AST (14-36) U/L Total Protein (6.3-8.2) g/dL Albumin (3.5-5.0) g/dL Crossmatch 09/04/24 09/04/24 09/04/24 Range/Units 08:51 08:51 10:19 WBC 1.4 L* (3.8-10.6) k/uL RBC 2.22 L (3.80-5.40) m/uL Hgb 6.4 L* (11.4-16.0) gm/dL Hct 19.8 L* (34.0-46.0) % RDW 20.4 H (11.5-15.5) % Plt Count 85 L (150-450) k/uL ABG pO2 (83-108) mmHg ABG O2 Saturation (94-97) % Sodium 133 L (137-145) mmol/L Potassium 5.2 H (3.5-5.1) mmol/L Chloride 97 L (98-107) mmol/L Carbon Dioxide 19 L (22-30) mmol/L BUN 113 H* (7-17) mg/dL Creatinine 2.78 H (0.52-1.04) mg/dL Glucose 146 H (74-99) mg/dL POC Glucose (mg/dL) (70-110) mg/dL Calcium 8.3 L (8.4-10.2) mg/dL AST 9 L (14-36) U/L Total Protein 5.7 L (6.3-8.2) g/dL Albumin 2.4 L (3.5-5.0) g/dL Crossmatch See Detail 09/04/24 09/04/24 09/04/24 Range/Units 11:38 12:10 17:51 WBC (3.8-10.6) k/uL RBC (3.80-5.40) m/uL Hgb (11.4-16.0) gm/dL Hct (34.0-46.0) % RDW (11.5-15.5) % Plt Count (150-450) k/uL ABG pO2 (83-108) mmHg ABG O2 Saturation (94-97) % Sodium (137-145) mmol/L Potassium (3.5-5.1) mmol/L Chloride (98-107) mmol/L Carbon Dioxide (22-30) mmol/L BUN (7-17) mg/dL Creatinine (0.52-1.04) mg/dL Glucose (74-99) mg/dL POC Glucose (mg/dL) 151 H 189 H (70-110) mg/dL Calcium (8.4-10.2) mg/dL AST (14-36) U/L Total Protein (6.3-8.2) g/dL Albumin (3.5-5.0) g/dL Crossmatch See Detail Microbiology - Last 24 Hours (Table) 09/01/24 15:32 Gram Stain - Final Sputum Sputum Culture - Final 09/01/24 13:55 Blood Culture - Preliminary Blood Assessment and Plan (1) Fever Current Visit: Yes Status: Acute Code(s): R50.9 - FEVER, UNSPECIFIED SNOMED Code(s): 192551045 (2) Leukopenia Current Visit: Yes Status: Acute Code(s): D72.819 - DECREASED WHITE BLOOD CELL COUNT, UNSPECIFIED SNOMED Code(s): 95363614 (3) Sepsis Current Visit: Yes Status: Acute Code(s): A41.9 - SEPSIS, UNSPECIFIED ORGANISM SNOMED Code(s): 20020884 Plan: 1patient with sepsis in this patient who did have fever and leukopenia patient has been in the hospital for more than 10 days before this initial evaluation with initial presentation to hospital with right leg pain subsequently did have acute respiratory failure requiring intubation and admission to ICU on 08/23/2024 patient was afebrile initially started running a fever as of 08/28/2024 however no culture done at that point 2blood culture has been obtained from the dialysis catheter but if any results are currently positive UA has been negative, patient did have elevated proc alcitonin 3patient did have PICC placement and left subclavian catheter should be discontinued and present for the culture 4 patient did have resolution of the fever on continue vancomycin and Zosyn and monitor clinical course closely Dictation was produced using [employer] dictation software. please excuse any grammatical, word or spelling errors.
[2024-09-05] MEDS: METOPROLOL TARTRATE 50 MG TAB PO SCH (08:22)
--- NOTE | 2024-09-05 08:33 | P.PN ---
Subjective Principal diagnosis: Acute respiratory failure. The patient is 64-year-old female essentially admitted to ICU for respiratory failure atrial fibrillation and element of COVID pneumonia. She is still requiring significant respiratory support although the patient has been weaned to 40% FiO2. Drug holiday is noted. Transfusion is pending. Objective - Vital Signs Vital signs: Vital Signs Temp 98.3 F 09/05/24 08:17 Pulse 124 H 09/05/24 08:17 Resp 27 H 09/05/24 08:17 BP 98/53 09/05/24 08:17 Pulse Ox 93 L 09/05/24 08:17 FiO2 40 09/05/24 07:58 Intake & Output 09/04/24 09/05/24 09/05/24 18:59 06:59 18:59 Intake Total 8595.052 8159.052 268.474 Output Total 475 50 20 Balance 6973.380 7847.052 248.474 Weight 68.7 kg Intake: IV 453 356 46 .9NS KVO 240 220 40 .9NS Pressure Bag 63 36 6 Desmopressin Acetate 20 50 mcg In Sodium Chloride 0. 9% 50 ml @ 200 mls/hr IVPB ONCE ONE Rx#: [id number] Piperacillin-Tazobactam 3 100 100 .375 gm In Sodium Chloride 0.9% 100 ml @ 25 mls/hr IVPB Q12H [facility] Rx# :[id number] Intake, IV Titration 198.309 130.052 82.474 Amount Norepinephrine 8 mg In 149.436 104.265 82.474 Sodium Chloride 0.9% 250 ml @ 0.03 MCG/KG/MIN 3. 106 mls/hr IV .Q24H [facility] Rx#:[id number] propofoL 1,000 mg In 48.873 25.787 Empty Bag 1 bag @ 15 MCG/ KG/MIN 4.815 mls/hr IV . [id number] [facility] Rx#:[id number] Tube Feeding 660 660 110 Blood Product 0 Unit 0 Hemodialysis 400 Other 90 90 30 Output: Urine 75 50 20 Hemodialysis 400 Hemodialysis Net Amount 0 Other: Voiding Method Indwelling Catheter Indwelling Catheter ABP, PAP, CO, CI - Last Documented Arterial Blood Pressure 110/53 - Constitutional General appearance: Present: average body habitus - EENT Eyes: Absent: abnormal pupil - Neck Neck: Absent: lymphadenopathy - Respiratory Respiratory: bilateral: diminished - Cardiovascular Rhythm: regular Heart sounds: normal: S1, S2 Abnormal Heart Sounds: Absent: S3 Gallop - Gastrointestinal General gastrointestinal: Present: soft. Absent: tenderness - Psychiatric Psychiatric: Absent: A&O x's 3 - Labs CBC & Chem 7: 09/05/24 05:24 09/05/24 05:24 Labs: Abnormal Lab Results - Last 24 Hours (Table) 09/04/24 09/04/24 09/04/24 Range/Units 08:51 08:51 10:19 WBC 1.4 L* (3.8-10.6) k/uL RBC 2.22 L (3.80-5.40) m/uL Hgb 6.4 L* (11.4-16.0) gm/dL Hct 19.8 L* (34.0-46.0) % RDW 20.4 H (11.5-15.5) % Plt Count 85 L (150-450) k/uL ABG pCO2 (35-45) mmHg ABG pO2 (83-108) mmHg ABG Total CO2 (19-24) mmol/L ABG O2 Saturation (94-97) % Hemoglobin (11.4-16.0) gm/dL Sodium 133 L (137-145) mmol/L Potassium 5.2 H (3.5-5.1) mmol/L Chloride 97 L (98-107) mmol/L Carbon Dioxide 19 L (22-30) mmol/L BUN 113 H* (7-17) mg/dL Creatinine 2.78 H (0.52-1.04) mg/dL Glucose 146 H (74-99) mg/dL POC Glucose (mg/dL) (70-110) mg/dL Calcium 8.3 L (8.4-10.2) mg/dL AST 9 L (14-36) U/L Total Protein 5.7 L (6.3-8.2) g/dL Albumin 2.4 L (3.5-5.0) g/dL Crossmatch See Detail 09/04/24 09/04/24 09/04/24 Range/Units 11:38 12:10 17:51 WBC (3.8-10.6) k/uL RBC (3.80-5.40) m/uL Hgb (11.4-16.0) gm/dL Hct (34.0-46.0) % RDW (11.5-15.5) % Plt Count (150-450) k/uL ABG pCO2 (35-45) mmHg ABG pO2 (83-108) mmHg ABG Total CO2 (19-24) mmol/L ABG O2 Saturation (94-97) % Hemoglobin (11.4-16.0) gm/dL Sodium (137-145) mmol/L Potassium (3.5-5.1) mmol/L Chloride (98-107) mmol/L Carbon Dioxide (22-30) mmol/L BUN (7-17) mg/dL Creatinine (0.52-1.04) mg/dL Glucose (74-99) mg/dL POC Glucose (mg/dL) 151 H 189 H (70-110) mg/dL Calcium (8.4-10.2) mg/dL AST (14-36) U/L Total Protein (6.3-8.2) g/dL Albumin (3.5-5.0) g/dL Crossmatch See Detail 09/05/24 09/05/24 09/05/24 Range/Units 04:40 05:20 05:24 WBC 1.6 L (3.8-10.6) k/uL RBC 2.06 L (3.80-5.40) m/uL Hgb 6.0 L* (11.4-16.0) gm/dL Hct 18.2 L* (34.0-46.0) % RDW 20.5 H (11.5-15.5) % Plt Count 70 L (150-450) k/uL ABG pCO2 34 L (35-45) mmHg ABG pO2 68 L (83-108) mmHg ABG Total CO2 25 H (19-24) mmol/L ABG O2 Saturation 93.7 L (94-97) % Hemoglobin 5.8 L* (11.4-16.0) gm/dL Sodium (137-145) mmol/L Potassium (3.5-5.1) mmol/L Chloride (98-107) mmol/L Carbon Dioxide (22-30) mmol/L BUN (7-17) mg/dL Creatinine (0.52-1.04) mg/dL Glucose (74-99) mg/dL POC Glucose (mg/dL) 145 H (70-110) mg/dL Calcium (8.4-10.2) mg/dL AST (14-36) U/L Total Protein (6.3-8.2) g/dL Albumin (3.5-5.0) g/dL Crossmatch 09/05/24 Range/Units 05:24 WBC (3.8-10.6) k/uL RBC (3.80-5.40) m/uL Hgb (11.4-16.0) gm/dL Hct (34.0-46.0) % RDW (11.5-15.5) % Plt Count (150-450) k/uL ABG pCO2 (35-45) mmHg ABG pO2 (83-108) mmHg ABG Total CO2 (19-24) mmol/L ABG O2 Saturation (94-97) % Hemoglobin (11.4-16.0) gm/dL Sodium 131 L (137-145) mmol/L Potassium (3.5-5.1) mmol/L Chloride 97 L (98-107) mmol/L Carbon Dioxide (22-30) mmol/L BUN 92 H (7-17) mg/dL Creatinine 2.49 H (0.52-1.04) mg/dL Glucose 136 H (74-99) mg/dL POC Glucose (mg/dL) (70-110) mg/dL Calcium 8.0 L (8.4-10.2) mg/dL AST 13 L (14-36) U/L Total Protein 5.6 L (6.3-8.2) g/dL Albumin 2.2 L (3.5-5.0) g/dL Crossmatch Microbiology - Last 24 Hours (Table) 09/01/24 13:55 Blood Culture - Preliminary Blood 09/01/24 15:32 Gram Stain - Final Sputum Sputum Culture - Final Assessment and Plan (1) COPD (chronic obstructive pulmonary disease) Current Visit: Yes Status: Acute Code(s): J44.9 - CHRONIC OBSTRUCTIVE PULMONARY DISEASE, UNSPECIFIED SNOMED Code(s): 04675839 (2) End stage renal disease Current Visit: Yes Status: Acute Priority: High Code(s): N18.6 - END STAGE RENAL DISEASE SNOMED Code(s): 82581728 (3) Intractable pain Current Visit: Yes Status: Acute Priority: High Code(s): R52 - PAIN, UNSPECIFIED SNOMED Code(s): 42454979 (4) Multiple myeloma Current Visit: Yes Status: Acute Priority: High Code(s): C90.00 - MULTIPLE MYELOMA NOT HAVING ACHIEVED REMISSION SNOMED Code(s): 465084497 (5) Right hip pain Current Visit: Yes Status: Acute Code(s): M25.551 - PAIN IN RIGHT HIP SNOMED Code(s): 49317839 Plan: Appreciate multiple consultants input. Dialysis treatment per nephrology. Holding off of chemotherapy for multiple myeloma at this time. Transfusion is pending today. Element of COVID. 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 Prognosis is significantly guarded. Time with Patient: Greater than 30
--- NOTE | 2024-09-05 08:58 | P.PN ---
Subjective Progress Note Date: 09/05/24 Principal diagnosis: HPI: This lady has history of multiple comorbid conditions including multiple myeloma, end-stage renal disease on hemodialysis, lung nodules possible malignancy. We are seeing her for atrial fibrillation which is paroxysmal in nature. Yesterday she was in sinus rhythm today she is in atrial fibrillation rate is fairly well-controlled. She is currently on amiodarone 400 mg and also on oral metoprolol. She is on a ventilator. Atrial fibrillation is a between 90 and 100 today off Cardizem drip. She is on a small dose of Levophed. She has multiple comorbid conditions including COVID infection COPD and lung mass. Today she is in atrial fibrillation rate is slightly fast at about 110 bpm. We will continue oral amiodarone and also increase metoprolol to 50 mg twice daily. Patient is on a small dose of Levophed. Prognosis remains quite poor PHYSICIAL EXAM: Vitals are stable JVD not evident S1-S2 with irregularity rhythm short systolic murmur, ventilator assisted breath sounds abdomen is soft groin was not examined lower extremities reveal diminished pulses. IMPRESSION: 1. Paroxysmal atrial fibrillation. 2. Acute respiratory failure on the ventilator. 3. Anemia requiring blood transfusions not anticoagulated. 4. End-stage renal disease. 5. Lung mass probable malignancy and multiple myeloma as well. RECOMMENDATIONS: Patient's blood pressure is somewhat better we can wean off the Levophed if possible continue other supportive care, increase metoprolol to 50 mg twice daily. Prognosis remains poor. Objective - Vital Signs Vital signs: Vital Signs Temp 98.5 F 09/05/24 08:37 Pulse 115 H 09/05/24 08:37 Resp 20 09/05/24 08:37 BP 106/56 09/05/24 08:37 Pulse Ox 94 L 09/05/24 08:37 FiO2 40 09/05/24 07:58 Intake & Output 09/04/24 09/05/24 09/05/24 18:59 06:59 18:59 Intake Total 5619.697 6060.052 269.595 Output Total 475 50 20 Balance 8818.136 8956.052 249.595 Weight 68.7 kg Intake: IV 453 356 46 .9NS KVO 240 220 40 .9NS Pressure Bag 63 36 6 Desmopressin Acetate 20 50 mcg In Sodium Chloride 0. 9% 50 ml @ 200 mls/hr IVPB ONCE ONE Rx#: [id number] Piperacillin-Tazobactam 3 100 100 .375 gm In Sodium Chloride 0.9% 100 ml @ 25 mls/hr IVPB Q12H [facility] Rx# :[id number] Intake, IV Titration 198.309 130.052 83.595 Amount Norepinephrine 8 mg In 149.436 104.265 83.595 Sodium Chloride 0.9% 250 ml @ 0.03 MCG/KG/MIN 3. 106 mls/hr IV .Q24H [facility] Rx#:[id number] propofoL 1,000 mg In 48.873 25.787 Empty Bag 1 bag @ 15 MCG/ KG/MIN 4.815 mls/hr IV . [id number] [facility] Rx#:[id number] Tube Feeding 660 660 110 Blood Product 0 Unit 0 Hemodialysis 400 Other 90 90 30 Output: Urine 75 50 20 Hemodialysis 400 Hemodialysis Net Amount 0 Other: Voiding Method Indwelling Catheter Indwelling Catheter Indwelling Catheter ABP, PAP, CO, CI - Last Documented Arterial Blood Pressure 110/53 - Labs CBC & Chem 7: 09/05/24 05:24 09/05/24 05:24 Labs: Abnormal Lab Results - Last 24 Hours (Table) 09/04/24 09/04/24 09/04/24 Range/Units 08:51 08:51 10:19 WBC 1.4 L* (3.8-10.6) k/uL RBC 2.22 L (3.80-5.40) m/uL Hgb 6.4 L* (11.4-16.0) gm/dL Hct 19.8 L* (34.0-46.0) % RDW 20.4 H (11.5-15.5) % Plt Count 85 L (150-450) k/uL ABG pCO2 (35-45) mmHg ABG pO2 (83-108) mmHg ABG Total CO2 (19-24) mmol/L ABG O2 Saturation (94-97) % Hemoglobin (11.4-16.0) gm/dL Sodium 133 L (137-145) mmol/L Potassium 5.2 H (3.5-5.1) mmol/L Chloride 97 L (98-107) mmol/L Carbon Dioxide 19 L (22-30) mmol/L BUN 113 H* (7-17) mg/dL Creatinine 2.78 H (0.52-1.04) mg/dL Glucose 146 H (74-99) mg/dL POC Glucose (mg/dL) (70-110) mg/dL Calcium 8.3 L (8.4-10.2) mg/dL AST 9 L (14-36) U/L Total Protein 5.7 L (6.3-8.2) g/dL Albumin 2.4 L (3.5-5.0) g/dL Crossmatch See Detail 09/04/24 09/04/24 09/04/24 Range/Units 11:38 12:10 17:51 WBC (3.8-10.6) k/uL RBC (3.80-5.40) m/uL Hgb (11.4-16.0) gm/dL Hct (34.0-46.0) % RDW (11.5-15.5) % Plt Count (150-450) k/uL ABG pCO2 (35-45) mmHg ABG pO2 (83-108) mmHg ABG Total CO2 (19-24) mmol/L ABG O2 Saturation (94-97) % Hemoglobin (11.4-16.0) gm/dL Sodium (137-145) mmol/L Potassium (3.5-5.1) mmol/L Chloride (98-107) mmol/L Carbon Dioxide (22-30) mmol/L BUN (7-17) mg/dL Creatinine (0.52-1.04) mg/dL Glucose (74-99) mg/dL POC Glucose (mg/dL) 151 H 189 H (70-110) mg/dL Calcium (8.4-10.2) mg/dL AST (14-36) U/L Total Protein (6.3-8.2) g/dL Albumin (3.5-5.0) g/dL Crossmatch See Detail 09/05/24 09/05/24 09/05/24 Range/Units 04:40 05:20 05:24 WBC 1.6 L (3.8-10.6) k/uL RBC 2.06 L (3.80-5.40) m/uL Hgb 6.0 L* (11.4-16.0) gm/dL Hct 18.2 L* (34.0-46.0) % RDW 20.5 H (11.5-15.5) % Plt Count 70 L (150-450) k/uL ABG pCO2 34 L (35-45) mmHg ABG pO2 68 L (83-108) mmHg ABG Total CO2 25 H (19-24) mmol/L ABG O2 Saturation 93.7 L (94-97) % Hemoglobin 5.8 L* (11.4-16.0) gm/dL Sodium (137-145) mmol/L Potassium (3.5-5.1) mmol/L Chloride (98-107) mmol/L Carbon Dioxide (22-30) mmol/L BUN (7-17) mg/dL Creatinine (0.52-1.04) mg/dL Glucose (74-99) mg/dL POC Glucose (mg/dL) 145 H (70-110) mg/dL Calcium (8.4-10.2) mg/dL AST (14-36) U/L Total Protein (6.3-8.2) g/dL Albumin (3.5-5.0) g/dL Crossmatch 09/05/24 Range/Units 05:24 WBC (3.8-10.6) k/uL RBC (3.80-5.40) m/uL Hgb (11.4-16.0) gm/dL Hct (34.0-46.0) % RDW (11.5-15.5) % Plt Count (150-450) k/uL ABG pCO2 (35-45) mmHg ABG pO2 (83-108) mmHg ABG Total CO2 (19-24) mmol/L ABG O2 Saturation (94-97) % Hemoglobin (11.4-16.0) gm/dL Sodium 131 L (137-145) mmol/L Potassium (3.5-5.1) mmol/L Chloride 97 L (98-107) mmol/L Carbon Dioxide (22-30) mmol/L BUN 92 H (7-17) mg/dL Creatinine 2.49 H (0.52-1.04) mg/dL Glucose 136 H (74-99) mg/dL POC Glucose (mg/dL) (70-110) mg/dL Calcium 8.0 L (8.4-10.2) mg/dL AST 13 L (14-36) U/L Total Protein 5.6 L (6.3-8.2) g/dL Albumin 2.2 L (3.5-5.0) g/dL Crossmatch Microbiology - Last 24 Hours (Table) 09/01/24 13:55 Blood Culture - Preliminary Blood 09/01/24 15:32 Gram Stain - Final Sputum Sputum Culture - Final
[2024-09-05] MEDS ORDERED: VANCOMYCIN 1,000 MG in SODIUM CHLORIDE 0.9% 250 ML IVPB ONE (09:00)
--- NOTE | 2024-09-05 10:23 | P.PN ---
Subjective Patient is seen in follow-up for end-stage renal disease. She is maintained on hemodialysis on Tuesday schedule. Tolerating dialysis well. On Levophed. Scheduled to receive a unit of blood today. Vital signs are stable. On Levophed. General: Resting in bed. HEENT: Intubated. On 40% FiO2. LUNGS: Scattered rhonchi. HEART: Rate and Rhythm are regular. ABDOMEN: No distention. EXTREMITITES: Trace edema. Objective - Vital Signs Vital signs: Vital Signs Temp 98.5 F 09/05/24 08:37 Pulse 98 09/05/24 09:45 Resp 22 09/05/24 09:45 BP 106/56 09/05/24 08:37 Pulse Ox 98 09/05/24 09:45 FiO2 40 09/05/24 07:58 Intake & Output 09/04/24 09/05/24 09/05/24 18:59 06:59 18:59 Intake Total 9651.645 5667.052 470.856 Output Total 475 50 40 Balance 6207.517 3148.052 430.856 Weight 68.7 kg Intake: IV 453 356 92 .9NS KVO 240 220 80 .9NS Pressure Bag 63 36 12 Desmopressin Acetate 20 50 mcg In Sodium Chloride 0. 9% 50 ml @ 200 mls/hr IVPB ONCE ONE Rx#: [id number] Piperacillin-Tazobactam 3 100 100 .375 gm In Sodium Chloride 0.9% 100 ml @ 25 mls/hr IVPB Q12H [facility] Rx# :[id number] Intake, IV Titration 198.309 130.052 128.856 Amount Norepinephrine 8 mg In 149.436 104.265 83.595 Sodium Chloride 0.9% 250 ml @ 0.03 MCG/KG/MIN 3. 106 mls/hr IV .Q24H [facility] Rx#:[id number] propofoL 1,000 mg In 48.873 25.787 45.261 Empty Bag 1 bag @ 15 MCG/ KG/MIN 4.815 mls/hr IV . [id number] [facility] Rx#:[id number] Tube Feeding 660 660 220 Blood Product 0 Unit 0 Hemodialysis 400 Other 90 90 30 Output: Urine 75 50 40 Hemodialysis 400 Hemodialysis Net Amount 0 Other: Voiding Method Indwelling Catheter Indwelling Catheter Indwelling Catheter ABP, PAP, CO, CI - Last Documented Arterial Blood Pressure 103/51 - Labs CBC & Chem 7: 09/05/24 05:24 09/05/24 05:24 Labs: Abnormal Lab Results - Last 24 Hours (Table) 09/04/24 09/04/24 09/04/24 Range/Units 10:19 11:38 12:10 WBC (3.8-10.6) k/uL RBC (3.80-5.40) m/uL Hgb (11.4-16.0) gm/dL Hct (34.0-46.0) % RDW (11.5-15.5) % Plt Count (150-450) k/uL ABG pCO2 (35-45) mmHg ABG pO2 (83-108) mmHg ABG Total CO2 (19-24) mmol/L ABG O2 Saturation (94-97) % Hemoglobin (11.4-16.0) gm/dL Sodium (137-145) mmol/L Chloride (98-107) mmol/L BUN (7-17) mg/dL Creatinine (0.52-1.04) mg/dL Glucose (74-99) mg/dL POC Glucose (mg/dL) 151 H (70-110) mg/dL Calcium (8.4-10.2) mg/dL AST (14-36) U/L Total Protein (6.3-8.2) g/dL Albumin (3.5-5.0) g/dL Crossmatch See Detail See Detail 09/04/24 09/05/24 09/05/24 Range/Units 17:51 04:40 05:20 WBC (3.8-10.6) k/uL RBC (3.80-5.40) m/uL Hgb (11.4-16.0) gm/dL Hct (34.0-46.0) % RDW (11.5-15.5) % Plt Count (150-450) k/uL ABG pCO2 34 L (35-45) mmHg ABG pO2 68 L (83-108) mmHg ABG Total CO2 25 H (19-24) mmol/L ABG O2 Saturation 93.7 L (94-97) % Hemoglobin 5.8 L* (11.4-16.0) gm/dL Sodium (137-145) mmol/L Chloride (98-107) mmol/L BUN (7-17) mg/dL Creatinine (0.52-1.04) mg/dL Glucose (74-99) mg/dL POC Glucose (mg/dL) 189 H 145 H (70-110) mg/dL Calcium (8.4-10.2) mg/dL AST (14-36) U/L Total Protein (6.3-8.2) g/dL Albumin (3.5-5.0) g/dL Crossmatch 09/05/24 09/05/24 Range/Units 05:24 05:24 WBC 1.6 L (3.8-10.6) k/uL RBC 2.06 L (3.80-5.40) m/uL Hgb 6.0 L* (11.4-16.0) gm/dL Hct 18.2 L* (34.0-46.0) % RDW 20.5 H (11.5-15.5) % Plt Count 70 L (150-450) k/uL ABG pCO2 (35-45) mmHg ABG pO2 (83-108) mmHg ABG Total CO2 (19-24) mmol/L ABG O2 Saturation (94-97) % Hemoglobin (11.4-16.0) gm/dL Sodium 131 L (137-145) mmol/L Chloride 97 L (98-107) mmol/L BUN 92 H (7-17) mg/dL Creatinine 2.49 H (0.52-1.04) mg/dL Glucose 136 H (74-99) mg/dL POC Glucose (mg/dL) (70-110) mg/dL Calcium 8.0 L (8.4-10.2) mg/dL AST 13 L (14-36) U/L Total Protein 5.6 L (6.3-8.2) g/dL Albumin 2.2 L (3.5-5.0) g/dL Crossmatch Microbiology - Last 24 Hours (Table) 09/01/24 13:55 Blood Culture - Preliminary Blood 09/01/24 15:32 Gram Stain - Final Sputum Sputum Culture - Final Assessment and Plan Plan: Assessment: 1. End-stage renal disease maintained on hemodialysis on Tuesday schedule via permacath. 2. Acute COVID-19 infection. 3. Acute hypoxic respiratory failure. 4. A-fib with RVR being followed by cardiology. 5. Staph epi bacteremia. Possibly contamination. Repeat cultures have been negative. 6. Right leg pain. Questionable groin mass versus enlarged lymph node versus joint effusion. Possible MRI to further evaluate down the road. 7. Multiple myeloma. Also noted to have pulmonary nodule. Oncology following. Treatment currently on hold due to acute infection. 8. Anemia of chronic kidney disease and also component of underlying multiple myeloma. Status post IV DDAVP. Scheduled to receive a unit of blood today. 9. Volume overload. Improved with ultrafiltration. 10. Hyperkalemia secondary to chronic kidney disease. Questionable GI bleed. 11. Chronic kidney disease mineral bone disease. Phosphorus level 7.9 dated September 03, 2024. Plan: Currently seen while undergoing hemodialysis. Scheduled receive a unit of blood today. Maintain tube feeds. Wean FiO2 and Levophed. Change Renvela to PhosLo. Prognosis guarded.
--- NOTE | 2024-09-05 11:10 | P.CONS ---
History of Present Illness - Reason for Consult Consult date: 09/05/24 wound care - History of Present Illness This is a 64-year-old patient being seen in ICU for nonhealing ulceration to the sacrum. Patient has a stage I pressure ulcer to the sacrum that is hospital- acquired. Patient is currently intubated past medical history significant for COPD hypertension chronic kidney disease 5 multiple myeloma. Unable to visualize ulceration per nurse and documentation ulceration has skin intact with ecchymosis noted. Review of systems: Unable to obtain due to intubation Physical exam: General Appearance: Alert, cooperative, no distress, appears stated age. Skin: See HPI all other Skin color, texture, tugor normal, no rashes or lesions. Neurologic: Alert oriented x3 Assessment: 1. Stage I pressure ulcer sacrum Plan: 1.Zinc barrier cream ans border foam.If skin is open change to honey gel and border foam. Change Tuesday, Tuesday and Tuesday. Turn patient every 2 hours Thank you for the consultation any questions please contact the wound care center DNP note has been reviewed and discussed with Dr. Rendon and the impression and plan of care has been directed as dictated. 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 Past Anesthesia/Blood Transfusion Reactions: No Reported Reaction Additional Past Anesthesia/Blood Transfusion Reaction / Comm: Clausterphobic. Past Psychological History: No Psychological Hx Reported Additional Psychological History / Comment(s): Clausterphobic. Smoking Status: Former smoker Past Alcohol Use History: None Reported Additional Past Alcohol Use History / Comment(s): Started smoking in 1971, smoked 1/2 ppd, quit 01/05/22. Used to drink two 32 ounce beers per day, quit 01/01/24. Past Drug Use History: Marijuana Additional Drug Use History / Comment(s): Marijuana gummies, weed salves. Aware no use 24 hrs prior to procedure. - Past Family History Father Additional Family Medical History / Comment(s): Father is from an enlarged heart/iglesias's lung. Mother Family Medical History: No Reported History Medications and Allergies Home Medications Medication Instructions Recorded Confirmed Type Budesonide/Formoterol Fumarate 2 puff INHALATION RT-BID PRN 01/05/24 08/21/24 History [Breyna 80-4.5 Mcg Inhaler] Acetaminophen [Tylenol Extra 500 mg PO BID 05/11/24 08/21/24 History Strength] Acyclovir [Zovirax] 400 mg PO BID 08/21/24 08/21/24 History Ascorbic Acid [Vitamin C] 1,000 mg PO DAILY 08/21/24 08/21/24 History Aspirin EC [Ecotrin Low Dose] 81 mg PO DAILY 08/21/24 08/21/24 History Calcium Carbonate/Vitamin D3 1 tab PO DAILY 08/21/24 08/21/24 History [Calcium 600 mg-Vit D3 10 mcg (400 Unit)] Cholecalciferol [Vitamin D3 (125 125 mcg PO DAILY 08/21/24 08/21/24 History Mcg = 5000 Iu)] Cyanocobalamin [Vitamin B-12] 500 mcg PO DAILY 08/21/24 08/21/24 History Ferrous Sulfate [Feosol] 325 mg PO DAILY 08/21/24 08/21/24 History Folic Acid 0.8 mg PO DAILY 08/21/24 08/21/24 History Glucosam/Christiano-Msm1/C/Giovanny/Bosw 1 tab PO DAILY 08/21/24 08/21/24 History [Glucosamine-Chondroitin Tablet] Loratadine 10 mg PO DAILY 08/21/24 08/21/24 History Multivitamins, Thera [Multivitamin 1 tab PO DAILY 08/21/24 08/21/24 History (formulary)] [place]-3/Dha/Epa/Fish Oil [Fish Oil 1 cap PO DAILY 08/21/24 08/21/24 History 1,000 mg Softgel] Omeprazole 20 mg PO DAILY 08/21/24 08/21/24 History Vit C/E/Zn/Coppr/Lutein/Zeaxan 1 tab PO DAILY 08/21/24 08/21/24 History [Preservision Areds 2 Softgel] Vitamin E (Dl,Tocopheryl Acet) 400 unit PO DAILY 08/21/24 08/21/24 History [Vitamin E (400 Iu = 180 mg)] dexAMETHasone [Decadron] 8 mg PO DAILY 08/21/24 08/21/24 History Allergies Allergy/AdvReac Type Severity Reaction Status Date / Time bee venom protein (honey bee) Allergy Anaphylaxis Verified 08/21/24 10:40 chocolate Allergy Anaphylaxis Verified 08/21/24 19:54 codeine Allergy Anaphylaxis Verified 08/21/24 10:40 levofloxacin [From Levaquin] Allergy Unknown Verified 08/21/24 10:40 red dye Allergy Anaphylaxis Verified 08/21/24 10:40 strawberry Allergy Anaphylaxis Verified 08/21/24 10:40 tree nut [Nut] Allergy Anaphylaxis Verified 08/21/24 19:54 STEROIDS AdvReac Severe rage Uncoded 08/21/24 05:16 behavior-"almost killed my dog" Physical Exam Vitals: Vital Signs Temp Pulse Pulse Resp BP BP Pulse Ox 09/05/24 10:30 96 22 100 09/05/24 10:26 97.3 F L 98 22 121/62 99 09/05/24 10:15 90 23 98 09/05/24 10:00 99 18 98 09/05/24 09:45 98 22 98 09/05/24 09:30 106 H 21 97 09/05/24 09:15 102 H 21 95 09/05/24 09:00 112 H 19 95 09/05/24 08:45 126 H 20 94 L 09/05/24 08:37 98.5 F 115 H 20 106/56 94 L 09/05/24 08:30 113 H 17 94 L 09/05/24 08:17 98.3 F 124 H 27 H 98/53 93 L 09/05/24 08:15 122 H 20 93 L 09/05/24 08:12 98.2 F 111 H 27 H 91/47 93 L 09/05/24 08:00 98.2 F 121 H 20 92 L 09/05/24 07:58 09/05/24 07:51 09/05/24 07:45 128 H 20 93 L 09/05/24 07:30 123 H 20 92 L 09/05/24 07:15 131 H 18 93 L 09/05/24 07:00 133 H 18 93 L 09/05/24 06:45 121 H 21 93 L 09/05/24 06:30 111 H 19 93 L 09/05/24 06:15 115 H 18 93 L 09/05/24 06:00 111 H 18 93 L 09/05/24 05:45 122 H 18 93 L 09/05/24 05:30 116 H 18 93 L 09/05/24 05:16 09/05/24 05:15 123 H 18 93 L 09/05/24 05:00 114 H 18 93 L 09/05/24 04:45 125 H 18 93 L 09/05/24 04:30 111 H 21 94 L 09/05/24 04:15 115 H 18 93 L 09/05/24 04:00 97.7 F 103 H 24 95 09/05/24 03:45 98 23 93 L 09/05/24 03:30 104 H 23 93 L 09/05/24 03:15 124 H 18 94 L 09/05/24 03:00 118 H 18 93 L 09/05/24 02:45 104 H 18 93 L 09/05/24 02:30 104 H 18 93 L 09/05/24 02:15 112 H 18 94 L 09/05/24 02:00 100 18 93 L 09/05/24 01:45 101 H 24 94 L 09/05/24 01:30 108 H 18 94 L 09/05/24 01:15 108 H 18 93 L 09/05/24 01:00 112 H 11 L 94 L 09/05/24 00:45 109 H 20 94 L 09/05/24 00:43 09/05/24 00:34 105 H 20 94 L 09/05/24 00:30 108 H 18 94 L 09/05/24 00:15 98 18 94 L 09/05/24 00:00 97.5 F L 101 H 19 94 L 09/04/24 23:45 93 18 95 09/04/24 23:30 105 H 19 95 09/04/24 23:15 93 18 95 09/04/24 23:00 105 H 18 94 L 09/04/24 22:45 99 18 95 09/04/24 22:30 106 H 19 95 09/04/24 22:15 105 H 18 95 09/04/24 22:00 102 H 18 95 09/04/24 21:45 107 H 18 95 09/04/24 21:30 96 18 95 09/04/24 21:15 111 H 18 95 09/04/24 21:00 109 H 18 94 L 09/04/24 20:45 98 18 94 L 09/04/24 20:30 116 H 18 94 L 09/04/24 20:15 105 H 18 94 L 09/04/24 20:00 97.9 F 101 H 18 99 09/04/24 19:54 09/04/24 19:45 104 H 18 94 L 09/04/24 19:30 105 H 18 94 L 09/04/24 19:15 106 H 19 94 L 09/04/24 19:00 105 H 18 116/65 94 L 09/04/24 18:45 108 H 20 93 L 09/04/24 18:30 113 H 19 119/63 09/04/24 18:15 110 H 20 93 L 09/04/24 18:00 96 20 115/62 93 L 09/04/24 17:45 101 H 20 92 L 09/04/24 17:30 110 H 19 104/65 93 L 09/04/24 17:15 108 H 20 93 L 09/04/24 17:00 101 H 21 103/53 93 L 09/04/24 16:45 99 26 H 95 09/04/24 16:30 104 H 24 99/54 93 L 09/04/24 16:15 99 24 93 L 09/04/24 16:01 98 F 100 22 101/57 09/04/24 16:00 98.1 F 106 H 24 90/54 93 L 09/04/24 15:45 107 H 23 93 L 09/04/24 15:41 09/04/24 15:30 108 H 24 94/54 95 09/04/24 15:15 121 H 21 95 09/04/24 15:00 109 H 24 92/55 95 09/04/24 14:45 104 H 22 95 09/04/24 14:30 114 H 27 H 92/51 94 L 09/04/24 14:15 113 H 18 94 L 09/04/24 14:00 120 H 20 110/62 94 L 09/04/24 13:45 109 H 25 H 94 L 09/04/24 13:30 112 H 18 105/61 09/04/24 13:15 126 H 20 92 L 09/04/24 13:00 112 H 18 107/61 91 L 09/04/24 12:45 114 H 18 92 L 09/04/24 12:30 116 H 18 109/64 92 L 09/04/24 12:15 118 H 18 90 L 09/04/24 12:00 113 H 18 107/54 91 L 09/04/24 11:45 115 H 18 93 L 09/04/24 11:30 112 H 18 97/60 93 L 09/04/24 11:15 114 H 18 94 L FiO2 09/05/24 10:30 09/05/24 10:26 09/05/24 10:15 09/05/24 10:00 09/05/24 09:45 09/05/24 09:30 09/05/24 09:15 09/05/24 09:00 09/05/24 08:45 09/05/24 08:37 09/05/24 08:30 09/05/24 08:17 09/05/24 08:15 09/05/24 08:12 09/05/24 08:00 09/05/24 07:58 40 09/05/24 07:51 40 09/05/24 07:45 09/05/24 07:30 09/05/24 07:15 09/05/24 07:00 09/05/24 06:45 09/05/24 06:30 09/05/24 06:15 09/05/24 06:00 09/05/24 05:45 09/05/24 05:30 09/05/24 05:16 40 09/05/24 05:15 09/05/24 05:00 09/05/24 04:45 09/05/24 04:30 09/05/24 04:15 09/05/24 04:00 40 09/05/24 03:45 09/05/24 03:30 09/05/24 03:15 09/05/24 03:00 09/05/24 02:45 09/05/24 02:30 09/05/24 02:15 09/05/24 02:00 09/05/24 01:45 09/05/24 01:30 09/05/24 01:15 09/05/24 01:00 09/05/24 00:45 09/05/24 00:43 40 09/05/24 00:34 09/05/24 00:30 09/05/24 00:15 09/05/24 00:00 40 09/04/24 23:45 09/04/24 23:30 09/04/24 23:15 09/04/24 23:00 09/04/24 22:45 09/04/24 22:30 09/04/24 22:15 09/04/24 22:00 09/04/24 21:45 09/04/24 21:30 09/04/24 21:15 09/04/24 21:00 09/04/24 20:45 09/04/24 20:30 09/04/24 20:15 09/04/24 20:00 40 09/04/24 19:54 40 09/04/24 19:45 09/04/24 19:30 09/04/24 19:15 09/04/24 19:00 09/04/24 18:45 09/04/24 18:30 09/04/24 18:15 09/04/24 18:00 09/04/24 17:45 09/04/24 17:30 09/04/24 17:15 09/04/24 17:00 09/04/24 16:45 09/04/24 16:30 09/04/24 16:15 09/04/24 16:01 09/04/24 16:00 40 09/04/24 15:45 09/04/24 15:41 40 09/04/24 15:30 09/04/24 15:15 09/04/24 15:00 09/04/24 14:45 09/04/24 14:30 09/04/24 14:15 09/04/24 14:00 09/04/24 13:45 09/04/24 13:30 09/04/24 13:15 09/04/24 13:00 09/04/24 12:45 09/04/24 12:30 09/04/24 12:15 09/04/24 12:00 40 09/04/24 11:45 09/04/24 11:30 09/04/24 11:15 Intake and Output 09/04/24 09/05/24 09/05/24 22:59 06:59 14:59 Intake Total 1304.336 862.505 780.856 Output Total 420 30 40 Balance 884.336 832.505 740.856 Intake: IV 267 284 92 .9NS KVO 140 160 80 .9NS Pressure Bag 27 24 12 Piperacillin-Tazobactam 3 100 100 .375 gm In Sodium Chloride 0.9% 100 ml @ 25 mls/hr IVPB Q12H [facility] Rx# :[id number] Intake, IV Titration 137.336 78.505 128.856 Amount Norepinephrine 8 mg In 100.849 78.505 83.595 Sodium Chloride 0.9% 250 ml @ 0.03 MCG/KG/MIN 3. 106 mls/hr IV .Q24H [facility] Rx#:[id number] propofoL 1,000 mg In 36.487 45.261 Empty Bag 1 bag @ 15 MCG/ KG/MIN 4.815 mls/hr IV . [id number] [facility] Rx#:[id number] Tube Feeding 440 440 220 Blood Product 310 Rc Irr As1 Unit 310 [id number] Hemodialysis 400 Other 60 60 30 Output: Urine 20 30 40 Hemodialysis 400 Hemodialysis Net Amount 0 Other: Voiding Method Indwelling Catheter Indwelling Catheter Indwelling Catheter Weight 68.7 kg 68.7 kg ABP, PAP, CO, CI - Last 8 Hours Arterial Blood Pressure 109/55 Arterial Blood Pressure 120/61 Arterial Blood Pressure 121/61 Arterial Blood Pressure 103/51 Arterial Blood Pressure 116/57 Arterial Blood Pressure 117/59 Arterial Blood Pressure 122/57 Arterial Blood Pressure 111/58 Arterial Blood Pressure 114/58 Arterial Blood Pressure 99/48 Arterial Blood Pressure 110/53 Arterial Blood Pressure 109/56 Arterial Blood Pressure 102/53 Arterial Blood Pressure 121/62 Arterial Blood Pressure 130/60 Arterial Blood Pressure 116/56 Arterial Blood Pressure 115/54 Arterial Blood Pressure 117/61 Arterial Blood Pressure 121/65 Arterial Blood Pressure 125/64 Arterial Blood Pressure 128/64 Arterial Blood Pressure 122/66 Arterial Blood Pressure 120/64 Arterial Blood Pressure 117/60 Arterial Blood Pressure 118/59 Arterial Blood Pressure 118/58 Arterial Blood Pressure 98/49 Arterial Blood Pressure 98/50 Arterial Blood Pressure 102/53 Arterial Blood Pressure 119/62 Results CBC & Chem 7: 09/05/24 05:24 09/05/24 05:24 Labs: Abnormal Lab Results - Last 24 Hours (Table) 09/04/24 09/04/24 09/04/24 Range/Units 10:19 11:38 12:10 WBC (3.8-10.6) k/uL RBC (3.80-5.40) m/uL Hgb (11.4-16.0) gm/dL Hct (34.0-46.0) % RDW (11.5-15.5) % Plt Count (150-450) k/uL ABG pCO2 (35-45) mmHg ABG pO2 (83-108) mmHg ABG Total CO2 (19-24) mmol/L ABG O2 Saturation (94-97) % Hemoglobin (11.4-16.0) gm/dL Sodium (137-145) mmol/L Chloride (98-107) mmol/L BUN (7-17) mg/dL Creatinine (0.52-1.04) mg/dL Glucose (74-99) mg/dL POC Glucose (mg/dL) 151 H (70-110) mg/dL Calcium (8.4-10.2) mg/dL AST (14-36) U/L Total Protein (6.3-8.2) g/dL Albumin (3.5-5.0) g/dL Crossmatch See Detail See Detail 09/04/24 09/05/24 09/05/24 Range/Units 17:51 04:40 05:20 WBC (3.8-10.6) k/uL RBC (3.80-5.40) m/uL Hgb (11.4-16.0) gm/dL Hct (34.0-46.0) % RDW (11.5-15.5) % Plt Count (150-450) k/uL ABG pCO2 34 L (35-45) mmHg ABG pO2 68 L (83-108) mmHg ABG Total CO2 25 H (19-24) mmol/L ABG O2 Saturation 93.7 L (94-97) % Hemoglobin 5.8 L* (11.4-16.0) gm/dL Sodium (137-145) mmol/L Chloride (98-107) mmol/L BUN (7-17) mg/dL Creatinine (0.52-1.04) mg/dL Glucose (74-99) mg/dL POC Glucose (mg/dL) 189 H 145 H (70-110) mg/dL Calcium (8.4-10.2) mg/dL AST (14-36) U/L Total Protein (6.3-8.2) g/dL Albumin (3.5-5.0) g/dL Crossmatch 09/05/24 09/05/24 Range/Units 05:24 05:24 WBC 1.6 L (3.8-10.6) k/uL RBC 2.06 L (3.80-5.40) m/uL Hgb 6.0 L* (11.4-16.0) gm/dL Hct 18.2 L* (34.0-46.0) % RDW 20.5 H (11.5-15.5) % Plt Count 70 L (150-450) k/uL ABG pCO2 (35-45) mmHg ABG pO2 (83-108) mmHg ABG Total CO2 (19-24) mmol/L ABG O2 Saturation (94-97) % Hemoglobin (11.4-16.0) gm/dL Sodium 131 L (137-145) mmol/L Chloride 97 L (98-107) mmol/L BUN 92 H (7-17) mg/dL Creatinine 2.49 H (0.52-1.04) mg/dL Glucose 136 H (74-99) mg/dL POC Glucose (mg/dL) (70-110) mg/dL Calcium 8.0 L (8.4-10.2) mg/dL AST 13 L (14-36) U/L Total Protein 5.6 L (6.3-8.2) g/dL Albumin 2.2 L (3.5-5.0) g/dL Crossmatch Microbiology - Last 24 Hours (Table) 09/01/24 13:55 Blood Culture - Preliminary Blood 09/01/24 15:32 Gram Stain - Final Sputum Sputum Culture - Final Assessment and Plan (1) Pressure injury of sacral region, stage 1 Current Visit: Yes Status: Acute Code(s): L89.151 - PRESSURE ULCER OF SACRAL REGION, STAGE 1 SNOMED Code(s): 34995536185677
[2024-09-05 12:08] LABS: Glucose,Whole Blood 139 mg/dL (70-110)
[2024-09-05 12:48] LABS: Anisocytosis Slight; HCT 23.3 % (34.0-46.0); Hypochromasia Slight; MCH 28.5 pg (25.0-35.0); MCHC 32.8 g/dL (31.0-37.0); Mean Platelet Volume 10.9; RBC 2.68 m/uL (3.80-5.40); RDW 18.9 % (11.5-15.5); WBC 2.1 k/uL (3.8-10.6)
[2024-09-05] MEDS: CALCIUM ACETATE 667 MG TAB PO SCH (13:10)
[2024-09-05 13:14] LABS: HGB 7.7 gm/dL (11.4-16.0)
[2024-09-05 13:15] LABS: Platelet Count 90 k/uL (150-450)
--- NOTE | 2024-09-05 14:18 | P.PN ---
Subjective Progress Note Date: 09/05/24 Principal diagnosis: Acute hypoxic respiratory failure, multifactorial This is a 63-year-old female patient with a known history of multiple myeloma receiving chemotherapy recently, suspected lung cancer with a PET positive right upper lobe 1.7 cm spiculated nodule, chronic obstructive pulmonary disease, chronic tobacco dependence, hypertension, hypothyroidism, end-stage renal disease receiving hemodialysis. She was admitted here on 08/21/2024 with complaints of right lower extremity pain. Been undergoing evaluation. Today on August 23, 2024 she had rapid response called on her twice for increasing shortness of breath and hypoxemia. She was subsequently transferred to the intensive care unit. She was placed on BiPAP / and 100% FiO2. She continued to do poorly and was subsequently intubated and placed on the mechanical ventilator. Currently on assist-control mode at a rate of 20, tidal volume 350, FiO2 100% and a PEEP of 5. She did undergo a left subclavian triple-lumen catheter placement and a right radial arterial line placement. Chest x-ray revealed satisfactory positions of the lines. Subtle scattered opacities may represent atypical pneumonia. Finding out today she is positive for COVID-19. Arterial blood gases post intubation revealed a PaO2 greater than 420, pCO2 of 60 and a pH of 7.28. FiO2 will be decreased accordingly. White count 8.5. Hemoglobin 8.7. Platelets 404. Sodium 129. Potassium 5.7. Bicarb 24. BUN 57. Creatinine 5.92. Glucose 82. She is sedated on propofol at 15 mcg/kg/min. The patient is seen today August 24, 2024 in follow-up in the intensive care unit. She remains intubated on the mechanical ventilator and assist-control mode at a rate of 20, tidal volume 350, FiO2 50% and a PEEP of 5. Morning blood gases revealed a PaO2 of 99. pCO2 48. pH 7.35. She is still requiring norepinephrine at 7 mcg/min. Cardizem drip at 5 mg an hour. Propofol at 40 mcg/kg/min. Lactated Ringer's at 100 mL/h. She is being nourished with vital HP at 10 mL/h with a goal of 46 mL/h. She remains on Symbicort, albuterol, Decadron. She is on Lovenox for DVT prophylaxis. Protonix for GI prophylaxis. Blood cultures now showing gram-positive cocci in clusters. Sputum culture pending. Vancomycin will be given x 1 until further cultures result. White count 6.6. Hemoglobin 7.0. Platelets 352. Sodium 132. Potassium 4.8. Bicarb 25. BUN 32. Creatinine 3.32. Glucose 108. The patient is seen today August 25, 2024 in follow-up in the intensive care unit. She remains intubated on the mechanical ventilator currently in settings of assist-control mode at a rate of 20, tidal volume 350, FiO2 50% and a PEEP of 5. Morning blood gases revealed a PaO2 of 91. pCO2 of 53 and a pH of 7.28. Chest x-ray reveals chronic and for somatic changes with mild cardiomegaly and patchy bilateral multifocal edema. No significant change. She remains on norepinephrine at 4 mcg/min. Cardizem drip is off. She was having sinus pauses yesterday. She has issues with intermittent atrial flutter. She is sedated on propofol at 40 mcg/kg/min. Lactated Ringer's at KVO. She is being nourished with vital HP at 10 mL/h. He received vancomycin x 1 for Staphylococcus epidermidis blood culture. Sputum culture revealed no growth. White count 12.9. Hemoglobin 7.5. Platelets 423. Sodium 133. Potassium 5.0. Bicarb 21. BUN 58. Creatinine 4.48. Glucose 134. She remains on Symbicort, albuterol, Decadron. Lovenox for DVT prophylaxis. Protonix for GI prophylaxis. The patient is seen today August 26, 2024 in follow-up in the intensive care unit. She remains intubated on mechanical ventilator and assist-control mode with a rate of 20, tidal valve 350, FiO2 50% and a PEEP of 5. Morning blood gases revealed a PaO2 of 90. pCO2 57 and a pH of 7.28. She did receive hemodialysis with 500 mL of fluid removed yesterday. She remains on norepinephrine at 1.7 mcg/min. Propofol at 50 mcg/kg/min. Lactated Ringer's at KVO. Vital HP at 10 mL an hour with a goal of 46 mL/h. She is continued with high residuals. May need Reglan if no improvement. She remains on albuterol, Symbicort, Decadron. Lovenox for DVT prophylaxis. Show chronic and for somatic changes and mild cardiomegaly with small to tiny left pleural effusion and patchy bilateral multifocal edema and/or acute infiltrates. No significant change. Blood culture was positive for Staphylococcus epidermidis. Sputum culture revealed no growth. White count 13.3. Hemoglobin 7.5. Platelets 364. Sodium 133. Potassium 5.1. Bicarb 24. BUN 41. Creatinine 2.91. Glucose 137. Currently in a +250 mL balance. On 08/27/2024, this patient is being seen for a follow-up. The patient remains intubated on the mechanical ventilator due to a combination of COPD and CHF exacerbation and COVID-19 infection. Noted the patient also has history of multiple myeloma receiving treatment on an outpatient basis. The patient has end-stage renal disease on hemodialysis and the patient also has history of hypertension hypothyroidism and during the course of the illness, the patient was also found to have a spiculated 1.7 cm right upper lobe lesion that was PET avid. This morning, the patient remains intubated on the mechanical ventilator. The patient is on assist-control mode at rate of 20, tidal volume of 350, FiO2 50% with a PEEP of 5. The patient remains sedated with propofol at 50 mc. The blood gases from today showed a pH of 7.26 with a pCO2 of 56 and pO2 of 70 and the chest x-ray shows stable perihilar and lower lobe pulmonary infiltrates. ET tube is around 5 cm above the danilo. The patient also has a dialysis permacath port in the right subclavian. Blood culture was positive for coagulase-negative staph and Staph epidermidis on 08/23/2024. Sputum culture was negative. The patient is currently on Decadron 8 mg p.o. daily Symbicort. No antibiotic coverage for now. is also on Lovenox for DVT prophylaxis at a dose of 30 mg subcu on a daily basis. Hemodynamically, the patient is requiring a low-dose norepinephrine for blood pressure support. Echocardiogram done on 08/23/2024 shows mild impairment of LV function with an EF of around 40 to 45% evidence of severe pulmonary hypertension and RV dilatation and estimated pulmonary artery pressures of around 56. Blood work from today shows a white cell count of 10.6, hemoglobin 7.2 and platelet count of 333. The sodium level is sodium is 135 at 135 with a potassium of 5.3, BUN 70 creatinine of 4.34. She is still on NE low dose at 0.04mc/kg/min. Her fluid balance is 1.4 L over the past 24 hours. Her last hemodialysis session was on 08/25/2024 with a total of 1 L of fluid was removed. She is on Vital HP at 30 cc. hr. Residuals are oin 250 cc range On 08/28/2023, the patient is being seen for a follow-up. Remains intubated on mechanical ventilator. Patient remains on propofol running at 45 mcg/kg/min. On today's evaluation, the patient is on assist-control mode with rate of 20, tidal volume of 450, FiO2 of 50% and the PEEP was brought up to 8 as the morning blood gases showed a pH of 7.38 with a pCO2 of 50 and pO2 of 66 and this was an FiO2 of 50%. The chest x-ray findings are essentially unchanged. The patient continues to have perihilar and lower lobe pulmonary infiltrates, patchy, slightly worse on the left and there is also some background cardiomegaly. The patient underwent hemodialysis yesterday. The patient is end-stage renal disease and she is currently on hemodialysis. She remains on norepinephrine which is running at 0.1 mcg/kg/min and the patient remains on vasopressin physiologic dose at 0.03 units. The patient has been having difficulties with atrial fibrillation since yesterday. Cardiology has been involved in the case and the patient was started on Cardizem drip and Cardizem drip is running at 5 mg an hour. Nevertheless, the patient continues to be in A-fib and she remains tachycardic. On a separate note, her hemoglobin is at 6.7. Still awaiting an appropriate manage for the packed RBC transfusion. The rest of the blood work shows a white cell count of 7.9, platelet count of 258, BUN is 48 with a creatinine of 2.8, sodium is at 132, chloride is 94 and a serum bicarb is at 27 at this point. Remains on Decadron 8 mg p.o. daily. Afebrile. Receiving enteral feeding for nutritional support. On 08/29/2024, the patient is being seen for a follow-up. The patient remains intubated on the mechanical ventilator. This morning, the patient is on propofol running at 30 mcg/kg/min. The patient is on mechanical ventilator assist-control mode rate of 20, tidal volume of 450, FiO2 50% with a PEEP of 8. Blood gas from today showed a pH of 7.27 with a pCO2 of 53 and pO2 of 97. CAT scan of the brain was negative. CAT scan of the chest was also completed yesterday and it showed interstitial infiltrates bilaterally consistent with COVID-19 pneumonia. At the same time, the patient had areas of consolidation lung bases left more than right highly suspicious for a bacterial infection. Based on that, the patient was started on a combination of Zosyn and vancomycin. The patient received a unit of packed RBC and the hemoglobin today is at 7.3. The patient remains on low-dose norepinephrine running at 0.08 mcg/kg/min. IV fluids are currently at KVO. Receiving vital high-protein at rate of 40 cc an h our. The patient encountered atrial fibrillation and she is currently back in normal sinus rhythm. She remains on amiodarone at 0.5 mg/min. Last hemodialysis session was on 08/27/2024. The white cell count is at 4.7, hemoglobin 7.3 and a platelet count of 188. Sodium is at 131 with a potassium level of 5.1, BUN is 81 with a creatinine of 3.3. No other significant events overnight. The patient is currently afebrile. Overnight, the patient was having low-grade fever On 08/30/2024, the patient is being seen for a follow-up. The patient remains intubated on the mechanical ventilator. This morning, the patient is on propofol running at 15 mcg/kg/min. She is on assist-control mode of mechanical ventilation and the patient is on assist-control rate of 20, tidal volume of 450, FiO2 50% with a PEEP of 6. Blood gas showed pH of 7.26 with a pCO2 of 57 and pO2 of 78. Chest x-ray shows stable, probably slightly improved perihilar and lower lobe pulmonary filtration as the patient is currently on a combination of Zosyn and vancomycin. The patient is also to undergo hemodialysis today. Hemodynamically, the patient is in normal sinus rhythm. The patient is on no pressors. The patient is dealing vital high-protein at rate of 40 cc an hour. Blood work from today shows a white cell count of 3.7 with a hemoglobin 8.2 and a platelet count of 143. The sodium is at 130, potassium is at 5.9 with a chloride of 93 and a bicarb of 19. BUN is 119 with a potassium level of 3.8. The patient remains on Decadron. Rest of the medications are essentially unchanged. The patient was given a sedation holiday yesterday and the patient was able to arouse and follows some simple commands. Not ready for extubation yet. Hemoglobin has been stable. No signs of any bleeding. 08/31/2024, the patient is being seen for a follow-up. The patient remains on propofol running at 25 mcg/kg/min. Breathing seems to be labile and the patient continues to have a high minute ventilation of around 16 to 17 L/min. She remains on assist-control mode of mechanical ventilation at rate of 20, tidal vo lume of 500, FiO2 50% with a PEEP of 6. Blood gas showed a pH of 7.37 with a pCO2 of 45 and pO2 of 74. The chest x-ray findings are stable and the patient stable bilateral pulmonary filtrates. The patient underwent hemodialysis yesterday and a total of 650 cc of fluid was removed. Postdialysis, the patient was placed on norepinephrine which is currently running at 0.06 mcg/kg/min. The patient is in a normal sinus rhythm and she converted as of 3 AM this morning. She is on vital high-protein at rate of 40 cc an hour. Afebrile for now. White cell count is down to 1.7 with a hemoglobin 7.7 and a platelet count of 106. Sodium is at 133, potassium is at 4.7, bicarb is 25 with a BUN of 19 and creatinine of 2.6. Vancomycin trough level was 18. On 09/01/2024, the patient is being seen for a follow-up. Calm and comfortable, remains on propofol at 20 mcg/kg/min. This morning, her breathing is less labored and her minute ventilation is down to 12. She is on a pressure control mode of mechanical ventilation at rate of 20, pressure control of 20, I, 0.8, FiO2 of 50% with a PEEP of 6. Chest x-ray findings are unchanged. The patient is to undergo another session of hemodialysis today. Blood gas from today shows a pH of 7.39 with a pCO2 of 39 and pO2 of 101. Cardiac rhythm is sinus and the patient remains on a combination of oral amiodarone and metoprolol. The patient remains on vital high-protein at rate of 40 cc an hour. No pressors for now. The white cell count of 2.2 renal cell 0.5 and a platelet count of 92. Sodium is 134, BUN is 117 and a creatinine of 3.37. Potassium level is at 5.1. Serum bicarb is at 18. Remains on Zosyn and vancomycin. Sputum cultures have been negative. Blood cultures been negative. Remains on Lovenox 30 mg subcu for DVT prophylaxis. Remains on Decadron 8 mg p.o. on a daily basis. On 09/02/2024, the patient is being seen for a follow-up. The patient remains on propofol running at 30 mcg/kg/min. Calm and comfortable on pressure control mode of mechanical ventilation at rate of 20, pressure control of 20, FiO2 50% with a PEEP of 5. Blood gas showed a pH of 7.37 with a pCO2 of 34 and pO2 of 103. Chest x-ray findings are stable. Remains on low-dose norepinephrine running at 0.1 mcg/kg/min. Hemodialysis performed yesterday a total of 650 cc of fluid was removed. She is in A-fib/flutter and the patient remains on oral amiodarone 400 mg p.o. twice a day and metoprolol 25 mg p.o. twice a day. She remains on Lovenox 30 mg subcu for DVT prophylaxis. She remains on Decadron. The blood work from today shows a white cell count of 1.8 with a hemoglobin of 7.5 and a platelet count of 77. Platelet counts are stable. BUN is 84 with a creatinine of 2.3 and a sodium levels at 132. Vancomycin level is at 17. Patient was evaluated today in the ICU on 09/03/2024 remains intubated and mechanically ventilated, she is on pressure control mode of mechanical ventilation with PI of 20, DI 0.8, rate 14 FiO2 40% and PEEP of 5 ABG showed a pO2 of 75 pCO2 37 pH of 7.38 hence no changes were made in vent settings. Patient requiring norepinephrine at 0.1 mcg/kg/min also on propofol 30 mcg/kg/min Cardizem 5 mg/h she is receiving vital HP at 40 cc/h IV fluid at KVO remains on Zosyn, and she is on hemodialysis today, when I saw the patient she was actually receiving hemodialysis the plan is to remove 1 L. Patient had COV ID over 10 days ago, and she is out of precautions. Her peak airway pressures 26 Plateau pressure is 19. Chest x-ray continues to show multifocal airspace opacities. WBC count is 2.3 hemoglobin is 7 electrolytes are normal BUN is 113 creatinine 2.96 Patient seen today on 09/04 2024 patient, patient remains intubated and mechanically ventilated, he is on pressure control mode of mechanical venti lation with pressure control of 20 rate 18 TI 0.8 FiO2 40% and PEEP of 5 ABG showed a pO2 of 73 pCO2 39 pH of 7.37 hence no adjustments were made on the ventilator settings. Patient is still requiring norepinephrine at 0.1 mcg/kg/min propofol 25 mcg/kg/min she briefly she was on vasopressin last night which is now off, patient had episodes of bradycardia radiating down to 40 heart rate, and cardiology stopped her Cardizem. She will be given metoprolol and amiodarone as per cardiology on the case. Patient had a PICC line placed today, patient is on Decadron and I cut it down to 4 mg daily remains on Lovenox for DVT prophylaxis remains on GI prophylaxis. Patient is awake, opens her eyes, b ut does not seem to track or follow any instructions. Hence I plan to cut down the propofol further and continue to assess mental status on a daily basis. Obviously considering her mental status, she is not ready to be weaned or extubated. Chest x-ray continues to show multiple opacities in both lungs left more so than right WBC count today is low at 1.4 hemoglobin 6.4, patient will be transfused with at least 1 unit of packed RBCs for a hemoglobin of 6.4 Patient was reevaluated today on 09/05/2024, remains in the ICU, intubated and mechanically ventilated, she is on a pressure control mode of mechanical ventilation, pressure control of 20 rate of 18 TI 0.8 FiO2 40% and PEEP of 5 ABG is marginal with a pO2 of 68 pCO2 34 pH of 7.45. Patient is still requiring hemodialysis she is also requiring norepinephrine at 0.14 mcg/kg/min propofol at 10 mcg/kg/min receiving vital HP at 55/55 patient had a drop in her hemoglobin today down to 6 and she is receiving a unit of packed RBCs may require even more. WBC count is 1.6 hemoglobin 6 platelets are 70,000. Antibiotics whitley she is on acyclovir, vancomycin and Zosyn patient is requiring hemodialysis today. Neurologically the patient is about the same, she opens her eyes, does not track, does not follow any instructions, hence will consider discontinuing propofol or cutting the dose further down to fully assess mental status off sed ation completely. Chest x-ray continues to show COPD, and multifocal infiltrates left more so than right. Last sputum culture from 09/01 was nondiagnostic she had at 1 point positive blood cultures for Staph epidermidis blood cultures remain negative all along. Objective - Vital Signs Vital signs: Vital Signs Temp 97.9 F 09/05/24 12:00 Pulse 99 09/05/24 13:00 Resp 18 09/05/24 13:00 BP 121/62 09/05/24 10:26 Pulse Ox 98 09/05/24 13:00 FiO2 40 09/05/24 12:09 Intake & Output 09/04/24 09/05/24 09/05/24 18:59 06:59 18:59 Intake Total 1787.737 3268.052 1112.753 Output Total 475 50 50 Balance 4142.983 6373.052 1062.753 Weight 68.7 kg 68.7 kg Intake: IV 453 356 161 .9NS KVO 240 220 140 .9NS Pressure Bag 63 36 21 Desmopressin Acetate 20 50 mcg In Sodium Chloride 0. 9% 50 ml @ 200 mls/hr IVPB ONCE ONE Rx#: [id number] Piperacillin-Tazobactam 3 100 100 .375 gm In Sodium Chloride 0.9% 100 ml @ 25 mls/hr IVPB Q12H [facility] Rx# :[id number] Intake, IV Titration 198.309 130.052 196.753 Amount Norepinephrine 8 mg In 149.436 104.265 149.780 Sodium Chloride 0.9% 250 ml @ 0.03 MCG/KG/MIN 3. 106 mls/hr IV .Q24H [facility] Rx#:[id number] propofoL 1,000 mg In 48.873 25.787 46.973 Empty Bag 1 bag @ 15 MCG/ KG/MIN 4.815 mls/hr IV . [id number] [facility] Rx#:[id number] Tube Feeding 660 660 385 Blood Product 310 Rc Irr As1 Unit 310 [id number] Hemodialysis 400 Other 90 90 60 Output: Urine 75 50 50 Hemodialysis 400 Hemodialysis Net Amount 0 Other: Voiding Method Indwelling Catheter Indwelling Catheter Indwelling Catheter ABP, PAP, CO, CI - Last Documented Arterial Blood Pressure 131/66 - Exam GENERAL EXAM: Revealed 64-year-old female intubated mechanically ventilated, no change in neurological status opens eyes but does not follow any instructions HEAD: Normocephalic. EYES: Normal reaction of pupils, equal size. NOSE: Clear with pink turbinates. THROAT: Endotracheal tube and gastric tube are intact. NECK: No masses, no JVD. CHEST: No chest wall deformity. LUNGS: Crackles at the bases no rhonchi no wheezes CVS: S1 and S2 normal with no audible murmur, regular rhythm. ABDOMEN: Soft nontender no MAG no rebound no guarding SKIN: No rashes CENTRAL NERVOUS SYSTEM: Eyes, does not follow instructions, patient is relatively low dose of propofol which I plan to discontinue EXTREMITIES: There is no peripheral edema. No clubbing, no cyanosis. Peripheral pulses are intact. - Labs CBC & Chem 7: 09/05/24 12:37 09/05/24 05:24 Labs: Abnormal Lab Results - Last 24 Hours (Table) 09/04/24 09/04/24 09/05/24 Range/Units 12:10 17:51 04:40 WBC (3.8-10.6) k/uL RBC (3.80-5.40) m/uL Hgb (11.4-16.0) gm/dL Hct (34.0-46.0) % RDW (11.5-15.5) % Plt Count (150-450) k/uL ABG pCO2 34 L (35-45) mmHg ABG pO2 68 L (83-108) mmHg ABG Total CO2 25 H (19-24) mmol/L ABG O2 Saturation 93.7 L (94-97) % Hemoglobin 5.8 L* (11.4-16.0) gm/dL Sodium (137-145) mmol/L Chloride (98-107) mmol/L BUN (7-17) mg/dL Creatinine (0.52-1.04) mg/dL Glucose (74-99) mg/dL POC Glucose (mg/dL) 189 H (70-110) mg/dL Calcium (8.4-10.2) mg/dL AST (14-36) U/L Total Protein (6.3-8.2) g/dL Albumin (3.5-5.0) g/dL Crossmatch See Detail 09/05/24 09/05/24 09/05/24 Range/Units 05:20 05:24 05:24 WBC 1.6 L (3.8-10.6) k/uL RBC 2.06 L (3.80-5.40) m/uL Hgb 6.0 L* (11.4-16.0) gm/dL Hct 18.2 L* (34.0-46.0) % RDW 20.5 H (11.5-15.5) % Plt Count 70 L (150-450) k/uL ABG pCO2 (35-45) mmHg ABG pO2 (83-108) mmHg ABG Total CO2 (19-24) mmol/L ABG O2 Saturation (94-97) % Hemoglobin (11.4-16.0) gm/dL Sodium 131 L (137-145) mmol/L Chloride 97 L (98-107) mmol/L BUN 92 H (7-17) mg/dL Creatinine 2.49 H (0.52-1.04) mg/dL Glucose 136 H (74-99) mg/dL POC Glucose (mg/dL) 145 H (70-110) mg/dL Calcium 8.0 L (8.4-10.2) mg/dL AST 13 L (14-36) U/L Total Protein 5.6 L (6.3-8.2) g/dL Albumin 2.2 L (3.5-5.0) g/dL Crossmatch 09/05/24 09/05/24 Range/Units 12:07 12:37 WBC 2.1 L (3.8-10.6) k/uL RBC 2.68 L (3.80-5.40) m/uL Hgb 7.7 L D (11.4-16.0) gm/dL Hct 23.3 L (34.0-46.0) % RDW 18.9 H (11.5-15.5) % Plt Count 90 L (150-450) k/uL ABG pCO2 (35-45) mmHg ABG pO2 (83-108) mmHg ABG Total CO2 (19-24) mmol/L ABG O2 Saturation (94-97) % Hemoglobin (11.4-16.0) gm/dL Sodium (137-145) mmol/L Chloride (98-107) mmol/L BUN (7-17) mg/dL Creatinine (0.52-1.04) mg/dL Glucose (74-99) mg/dL POC Glucose (mg/dL) 139 H (70-110) mg/dL Calcium (8.4-10.2) mg/dL AST (14-36) U/L Total Protein (6.3-8.2) g/dL Albumin (3.5-5.0) g/dL Crossmatch Microbiology - Last 24 Hours (Table) 09/01/24 13:55 Blood Culture - Preliminary Blood Assessment and Plan Assessment: Impression: Acute hypoxic respiratory failure, multifactorial Acute exacerbation of COPD Acute on chronic systolic congestive heart failure Acute COVID-19 pneumonia, underlying bacterial pneumonia is not entirely ruled out. Sepsis and septic shock with hypotension secondary to pneumonia History of multiple myeloma has been on Revlimid, patient has chronic pancytopenia Right upper lobe spiculated nodule with positive PET scan needs outpatient workup it is 1.7 cm highly suspicious for bronchogenic carcinoma/adenocarcinoma Tobacco dependence syndrome End-stage renal disease, on hemodialysis Benign essential hypertension Generative joint disease Chronic anemia Status post PICC line placement on 09/04/2024 Recommendations: Continue ventilatory, patient is not ready for extubation mostly because of her overall neurological status Cut down and possibly discontinue propofol to fully evaluate mental status off sedation Continue hemodialysis Continue antibiotics and continue Decadron Continue amiodarone Titrate norepinephrine accordingly Continue GI and DVT prophylaxis Continue enteral feeding/nutritional support Transfuse with packed RBCs, may require more than 1 unit of packed RBCs hemoglobin is down to 6 Continue metoprolol and address atrial fibrillation accordingly as per cardiology on the case. Patient remains critically ill, critical care time is over 30 minutes again the patient is not ready for any weaning at this point. Will continue to follow Time with Patient: Greater than 30
[2024-09-05 17:30] LABS: Glucose,Whole Blood 194 mg/dL (70-110)
[2024-09-05 23:07] LABS: Glucose,Whole Blood 157 mg/dL (70-110)
[2024-09-06 05:22] LABS: Anisocytosis Slight; HCT 20.6 % (34.0-46.0); Hypochromasia Slight; MCH 29.6 pg (25.0-35.0); MCHC 33.8 g/dL (31.0-37.0); MCV 87.4 fL (80.0-100.0); Mean Platelet Volume 11.1; Platelet Count 64 k/uL (150-450); RBC 2.36 m/uL (3.80-5.40); RDW 18.9 % (11.5-15.5)
[2024-09-06 05:30] LABS: ALT 27 U/L (4-34); AST 16 U/L (14-36); African American GFR (CKD) 28 (>60 ml/min/1.73 sqM); Albumin 2.2 g/dL (3.5-5.0); Alkaline Phosphatase 69 U/L (38-126); Anion Gap 12 mmol/L; Blood Urea Nitrogen 73 mg/dL (7-17); Calcium 7.8 mg/dL (8.4-10.2); Carbon Dioxide 23 mmol/L (22-30); Chloride 95 mmol/L (98-107); Glucose 148 mg/dL (74-99); Non-African American GFR(CKD) 24 (>60 ml/min/1.73 sqM); Potassium 4.4 mmol/L (3.5-5.1); Sodium 130 mmol/L (137-145); Total Bilirubin 0.6 mg/dL (0.2-1.3); Total Protein 5.4 g/dL (6.3-8.2)
[2024-09-06 05:31] LABS: WBC 1.2 k/uL (3.8-10.6)
[2024-09-06 05:56] LABS: ABG Base Excess 0.6 mmol/L; ABG HCO3 25 mmol/L (21-25); ABG Oxygen Saturation 93.4 % (94-97); ABG PCO2 35 mmHg (35-45); ABG PH 7.45 (7.35-7.45); ABG PO2 65 mmHg (83-108); ABG TCO2 26 mmol/L (19-24); Allen Test Performed? Yes
--- NOTE | 2024-09-06 07:18 | XR ---
EXAMINATION TYPE: XR chest 1V portable DATE OF EXAM: 09/06/2024 5:36 AM COMPARISON: Chest radiograph from one day prior. CLINICAL INDICATION: Female, 64 years old with history of mechanical ventilation; [facility] TECHNIQUE: XR chest 1V portable Frontal view of the chest. FINDINGS: Lungs/Pleura: Multifocal airspace opacities. No evidence of pneumothorax or pleural effusion. Pulmonary vascularity: Unremarkable. Heart/mediastinum: Cardiac size is normal. Musculoskeletal: No acute osseous pathology. Other findings: None Lines/Tubes: Endotracheal tube with distal tip 5.7 cm above the danilo. Nasogastric tube with its distal tip and side-port projecting under the diaphragm. Right internal jugular central venous catheter with distal tip at the cavoatrial junction. Right-sided PICC line with distal tip at the cavoatrial junction. IMPRESSION: 1. Similar multifocal airspace opacities. 2. Stable support lines and tubes.. [facility], , 09/06/2024 7:16 AM
[2024-09-06] MEDS: METOPROLOL TARTRATE 50 MG TAB PO SCH (08:45)
--- NOTE | 2024-09-06 08:45 | P.PN ---
Subjective Progress Note Date: 09/06/24 This is a 63-year-old female who presented to the emergency department with complaints of right lower extremity pain. Patient has a history of end-stage renal disease, as well as lung cancer and a recent diagnosis of multiple myeloma. Patient denies any trauma to leg. She reports she has had similar danial n in the past in her right lower extremity but workup has been normal. XR's showing arthritis on admission. Patient maintained on hemodialysis as an outpatient, is due for dialysis today. 08/23/2024 Patient seen and evaluated laying in bed this morning. Last night she developed SVT and was transferred to the cardiac floor. Cardiology has been consulted and the patient was started on a Cardizem drip. Patient denies any shortness of breath or chest pain at time of SVT last night. Patient had a CT of the pelvis yesterday which shows possible enlarged lymph node in the right inguinal area. 08/27/2024 Patient remains in the ICU on mechanical ventilation. She was positive for COVID last week. Patient still having tachycardia and tachypnea. 08/28/2024 Patient remains in the ICU on mechanical ventilation. Pulmonary has ordered a CT of the head and chest for today. Patient continues to have tachycardia and tachypnea. Hemoglobin was 6.7 yesterday and patient received 1 unit of PRBCs. 08/30/2024 Patient remains in the ICU and on mechanical ventilation. Her heart rate has improved. She will be getting dialysis today. 09/03/2024 Patient remains in the ICU on mechanical ventilation. Her heart rate has improved. Hemoglobin is stable. Dialysis scheduled for today. 09/04/2024 Patient remains in the ICU on mechanical ventilation. She had hemodialysis yesterday. Heart rate has trended up a little since yesterday. 09/06/2024 Patient remains in the ICU on mechanical ventilation. She received 1 unit blood yesterday. Nursing concern for Dilaudid dose and side effects, will add oral tramadol as needed due to codeine allergy. Objective - Vital Signs Vital signs: Vital Signs Temp 98.5 F 09/06/24 04:00 Pulse 99 09/06/24 07:00 Resp 19 09/06/24 07:00 BP 101/59 09/06/24 06:00 Pulse Ox 93 L 09/06/24 07:00 FiO2 40 09/06/24 07:51 Intake & Output 09/05/24 09/06/24 09/06/24 18:59 06:59 18:59 Intake Total 8704.084 8700.092 78 Output Total 85 1480 10 Balance 1516.474 10.092 68 Weight 68.7 kg 70.6 kg Intake: IV 276 276 23 .9NS KVO 240 240 20 .9NS Pressure Bag 36 36 3 Intake, IV Titration 265.474 154.092 Amount Norepinephrine 8 mg In 218.501 154.092 Sodium Chloride 0.9% 250 ml @ 0.03 MCG/KG/MIN 3. 106 mls/hr IV .Q24H [facility] Rx#:[id number] propofoL 1,000 mg In 46.973 Empty Bag 1 bag @ 15 MCG/ KG/MIN 4.815 mls/hr IV . [id number] [facility] Rx#:[id number] Tube Feeding 660 660 55 Blood Product 310 Rc Irr As1 Unit 310 [id number] Hemodialysis 400 Other 90 Output: Urine 85 80 0 Oral Regurgitation 10 Hemodialysis 900 Hemodialysis Net Amount 500 Other: Voiding Method Indwelling Catheter Indwelling Catheter ABP, PAP, CO, CI - Last Documented Arterial Blood Pressure 95/49 - Exam intubated - Constitutional General appearance: Present: no acute distress - EENT Eyes: Present: PERRLA - Neck Neck: Absent: lymphadenopathy, rigidity - Respiratory Respiratory: bilateral: diminished - Cardiovascular Heart sounds: normal: S1, S2 - Gastrointestinal General gastrointestinal: Present: soft - Integumentary Integumentary: Present: normal - Musculoskeletal Musculoskeletal: Present: generalized weakness - Labs CBC & Chem 7: 09/06/24 04:30 09/06/24 04:30 Labs: Abnormal Lab Results - Last 24 Hours (Table) 09/04/24 09/05/24 09/05/24 Range/Units 12:10 12:07 12:37 WBC 2.1 L (3.8-10.6) k/uL RBC 2.68 L (3.80-5.40) m/uL Hgb 7.7 L D (11.4-16.0) gm/dL Hct 23.3 L (34.0-46.0) % RDW 18.9 H (11.5-15.5) % Plt Count 90 L (150-450) k/uL ABG pO2 (83-108) mmHg ABG Total CO2 (19-24) mmol/L ABG O2 Saturation (94-97) % Hemoglobin (11.4-16.0) gm/dL Sodium (137-145) mmol/L Chloride (98-107) mmol/L BUN (7-17) mg/dL Creatinine (0.52-1.04) mg/dL Glucose (74-99) mg/dL POC Glucose (mg/dL) 139 H (70-110) mg/dL Calcium (8.4-10.2) mg/dL Total Protein (6.3-8.2) g/dL Albumin (3.5-5.0) g/dL Crossmatch See Detail Blood Bank Comment Sent to Reference[facility] A Reference Lab Result See BBK REF Reports A 09/05/24 09/05/24 09/06/24 Range/Units 17:28 23:06 04:30 WBC 1.2 L* (3.8-10.6) k/uL RBC 2.36 L (3.80-5.40) m/uL Hgb 7.0 L (11.4-16.0) gm/dL Hct 20.6 L (34.0-46.0) % RDW 18.9 H (11.5-15.5) % Plt Count 64 L (150-450) k/uL ABG pO2 (83-108) mmHg ABG Total CO2 (19-24) mmol/L ABG O2 Saturation (94-97) % Hemoglobin (11.4-16.0) gm/dL Sodium (137-145) mmol/L Chloride (98-107) mmol/L BUN (7-17) mg/dL Creatinine (0.52-1.04) mg/dL Glucose (74-99) mg/dL POC Glucose (mg/dL) 194 H 157 H (70-110) mg/dL Calcium (8.4-10.2) mg/dL Total Protein (6.3-8.2) g/dL Albumin (3.5-5.0) g/dL Crossmatch Blood Bank Comment Reference Lab Result 09/06/24 09/06/24 Range/Units 04:30 05:53 WBC (3.8-10.6) k/uL RBC (3.80-5.40) m/uL Hgb (11.4-16.0) gm/dL Hct (34.0-46.0) % RDW (11.5-15.5) % Plt Count (150-450) k/uL ABG pO2 65 L (83-108) mmHg ABG Total CO2 26 H (19-24) mmol/L ABG O2 Saturation 93.4 L (94-97) % Hemoglobin 6.7 L* (11.4-16.0) gm/dL Sodium 130 L (137-145) mmol/L Chloride 95 L (98-107) mmol/L BUN 73 H (7-17) mg/dL Creatinine 2.09 H (0.52-1.04) mg/dL Glucose 148 H (74-99) mg/dL POC Glucose (mg/dL) (70-110) mg/dL Calcium 7.8 L (8.4-10.2) mg/dL Total Protein 5.4 L (6.3-8.2) g/dL Albumin 2.2 L (3.5-5.0) g/dL Crossmatch Blood Bank Comment Reference Lab Result Assessment and Plan (1) Lung cancer Current Visit: Yes Status: Acute Code(s): C34.90 - MALIGNANT NEOPLASM OF UNSP PART OF UNSP BRONCHUS OR LUNG SNOMED Code(s): 064081340 (2) Multiple myeloma Current Visit: Yes Status: Acute Priority: High Code(s): C90.00 - MULTIPLE MYELOMA NOT HAVING ACHIEVED REMISSION SNOMED Code(s): 511189336 (3) Intractable pain Current Visit: Yes Status: Acute Priority: High Code(s): R52 - PAIN, UNSPECIFIED SNOMED Code(s): 95995591 (4) COPD (chronic obstructive pulmonary disease) Current Visit: Yes Status: Acute Code(s): J44.9 - CHRONIC OBSTRUCTIVE PULMON SUE DISEASE, UNSPECIFIED SNOMED Code(s): 86037437 (5) End stage renal disease Current Visit: Yes Status: Acute Priority: High Code(s): N18.6 - END STAGE RENAL DISEASE SNOMED Code(s): 69624523 (6) COVID Current Visit: Yes Status: Acute Code(s): U07.1 - COVID-19 SNOMED Code(s): 150922173 Plan: Appreciate multiple consultants. Check CBC and CMP in the morning. Patient seen and evaluated by nurse practitioner, physician in agreement with plan.
[2024-09-06] MEDS: traMADol 50 MG TAB PO SCH (08:57)
--- NOTE | 2024-09-06 09:03 | P.PN ---
Subjective Progress Note Date: 09/06/24 Principal diagnosis: HPI: This lady has history of multiple comorbid conditions including multiple myeloma, end-stage renal disease on hemodialysis, lung nodules possible malignancy. Labs today suggestive white count of 1.2 and platelet count of 64 and patient has probably myelodysplastic syndrome/multiple myeloma. No anticoagulation. We are seeing her for atrial fibrillation which is paroxysmal in nature. Today she is in atrial fibrillation rate is fairly well-controlled. She is currently on amiodarone 400 mg and also on oral metoprolol. She is on a ventilator. Atrial fibrillation is a between 90 and 100 today off Cardizem drip. She is on a small dose of Levophed. She has multiple comorbid conditions including COVID infection COPD and lung mass. Today she is in atrial fibrillation rate is slightly fast at about 110 bpm. We will continue oral amiodarone and also increase metoprolol to 50 mg twice daily. Patient is on a small dose of Levophed. Prognosis remains quite poor PHYSICIAL EXAM: Vitals are stable JVD not evident S1-S2 with irregularity rhythm short systolic murmur, ventilator assisted breath sounds abdomen is soft groin was not examined lower extremities reveal diminished pulses. IMPRESSION: 1. Paroxysmal atrial fibrillation. 2. Acute respiratory failure on the ventilator. 3. Anemia requiring blood transfusions not anticoagulated. 4. End-stage renal disease. 5. Lung mass probable malignancy and multiple myeloma as well. 6. Multiple myeloma with leukopenia and thrombocytopenia RECOMMENDATIONS: Patient's blood pressure is somewhat better we can wean off the Levophed if possible continue other supportive care, increase metoprolol to 50 mg 3 times daily. Prognosis remains poor. Objective - Vital Signs Vital signs: Vital Signs Temp 98.5 F 09/06/24 04:00 Pulse 99 09/06/24 07:00 Resp 19 09/06/24 07:00 BP 101/59 09/06/24 06:00 Pulse Ox 93 L 09/06/24 07:00 FiO2 40 09/06/24 07:51 Intake & Output 09/05/24 09/06/24 09/06/24 18:59 06:59 18:59 Intake Total 4725.938 3780.092 124.43 Output Total 85 1480 10 Balance 1516.474 10.092 114.43 Weight 68.7 kg 70.6 kg Intake: IV 276 276 23 .9NS KVO 240 240 20 .9NS Pressure Bag 36 36 3 Intake, IV Titration 265.474 154.092 46.43 Amount Norepinephrine 8 mg In 218.501 154.092 46.43 Sodium Chloride 0.9% 250 ml @ 0.03 MCG/KG/MIN 3. 106 mls/hr IV .Q24H [facility] Rx#:[id number] propofoL 1,000 mg In 46.973 Empty Bag 1 bag @ 15 MCG/ KG/MIN 4.815 mls/hr IV . [id number] [facility] Rx#:[id number] Tube Feeding 660 660 55 Blood Product 310 Rc Irr As1 Unit 310 [id number] Hemodialysis 400 Other 90 Output: Urine 85 80 0 Oral Regurgitation 10 Hemodialysis 900 Hemodialysis Net Amount 500 Other: Voiding Method Indwelling Catheter Indwelling Catheter ABP, PAP, CO, CI - Last Documented Arterial Blood Pressure 95/49 - Labs CBC & Chem 7: 09/06/24 04:30 09/06/24 04:30 Labs: Abnormal Lab Results - Last 24 Hours (Table) 09/04/24 09/05/24 09/05/24 Range/Units 12:10 12:07 12:37 WBC 2.1 L (3.8-10.6) k/uL RBC 2.68 L (3.80-5.40) m/uL Hgb 7.7 L D (11.4-16.0) gm/dL Hct 23.3 L (34.0-46.0) % RDW 18.9 H (11.5-15.5) % Plt Count 90 L (150-450) k/uL ABG pO2 (83-108) mmHg ABG Total CO2 (19-24) mmol/L ABG O2 Saturation (94-97) % Hemoglobin (11.4-16.0) gm/dL Sodium (137-145) mmol/L Chloride (98-107) mmol/L BUN (7-17) mg/dL Creatinine (0.52-1.04) mg/dL Glucose (74-99) mg/dL POC Glucose (mg/dL) 139 H (70-110) mg/dL Calcium (8.4-10.2) mg/dL Total Protein (6.3-8.2) g/dL Albumin (3.5-5.0) g/dL Crossmatch See Detail Blood Bank Comment Sent to Reference[facility] A Reference Lab Result See BBK REF Reports A 09/05/24 09/05/24 09/06/24 Range/Units 17:28 23:06 04:30 WBC 1.2 L* (3.8-10.6) k/uL RBC 2.36 L (3.80-5.40) m/uL Hgb 7.0 L (11.4-16.0) gm/dL Hct 20.6 L (34.0-46.0) % RDW 18.9 H (11.5-15.5) % Plt Count 64 L (150-450) k/uL ABG pO2 (83-108) mmHg ABG Total CO2 (19-24) mmol/L ABG O2 Saturation (94-97) % Hemoglobin (11.4-16.0) gm/dL Sodium (137-145) mmol/L Chloride (98-107) mmol/L BUN (7-17) mg/dL Creatinine (0.52-1.04) mg/dL Glucose (74-99) mg/dL POC Glucose (mg/dL) 194 H 157 H (70-110) mg/dL Calcium (8.4-10.2) mg/dL Total Protein (6.3-8.2) g/dL Albumin (3.5-5.0) g/dL Crossmatch Blood Bank Comment Reference Lab Result 09/06/24 09/06/24 Range/Units 04:30 05:53 WBC (3.8-10.6) k/uL RBC (3.80-5.40) m/uL Hgb (11.4-16.0) gm/dL Hct (34.0-46.0) % RDW (11.5-15.5) % Plt Count (150-450) k/uL ABG pO2 65 L (83-108) mmHg ABG Total CO2 26 H (19-24) mmol/L ABG O2 Saturation 93.4 L (94-97) % Hemoglobin 6.7 L* (11.4-16.0) gm/dL Sodium 130 L (137-145) mmol/L Chloride 95 L (98-107) mmol/L BUN 73 H (7-17) mg/dL Creatinine 2.09 H (0.52-1.04) mg/dL Glucose 148 H (74-99) mg/dL POC Glucose (mg/dL) (70-110) mg/dL Calcium 7.8 L (8.4-10.2) mg/dL Total Protein 5.4 L (6.3-8.2) g/dL Albumin 2.2 L (3.5-5.0) g/dL Crossmatch Blood Bank Comment Reference Lab Result
--- NOTE | 2024-09-06 09:52 | P.PN ---
Subjective Patient is seen in follow-up for end-stage renal disease. She is maintained on hemodialysis on Tuesday schedule. Completed dialysis yesterday with half a liter ultrafiltration. Hemoglobin 7.0. No active bleeding per nurse. Intubated. On Levophed. Vital signs are stable. On Levophed. General: Resting in bed. HEENT: Intubated. On 45% FiO2. LUNGS: Scattered rhonchi. HEART: Rate and Rhythm are regular. ABDOMEN: No distention. EXTREMITITES: Trace edema. Objective - Vital Signs Vital signs: Vital Signs Temp 98.5 F 09/06/24 04:00 Pulse 99 09/06/24 07:00 Resp 19 09/06/24 07:00 BP 101/59 09/06/24 06:00 Pulse Ox 93 L 09/06/24 07:00 FiO2 45 09/06/24 09:21 Intake & Output 09/05/24 09/06/24 09/06/24 18:59 06:59 18:59 Intake Total 8054.203 3152.092 124.43 Output Total 85 1480 10 Balance 1516.474 10.092 114.43 Weight 68.7 kg 70.6 kg Intake: IV 276 276 23 .9NS KVO 240 240 20 .9NS Pressure Bag 36 36 3 Intake, IV Titration 265.474 154.092 46.43 Amount Norepinephrine 8 mg In 218.501 154.092 46.43 Sodium Chloride 0.9% 250 ml @ 0.03 MCG/KG/MIN 3. 106 mls/hr IV .Q24H [facility] Rx#:[id number] propofoL 1,000 mg In 46.973 Empty Bag 1 bag @ 15 MCG/ KG/MIN 4.815 mls/hr IV . [id number] [facility] Rx#:[id number] Tube Feeding 660 660 55 Blood Product 310 Rc Irr As1 Unit 310 [id number] Hemodialysis 400 Other 90 Output: Urine 85 80 0 Oral Regurgitation 10 Hemodialysis 900 Hemodialysis Net Amount 500 Other: Voiding Method Indwelling Catheter Indwelling Catheter ABP, PAP, CO, CI - Last Documented Arterial Blood Pressure 95/49 - Labs CBC & Chem 7: 09/06/24 04:30 09/06/24 04:30 Labs: Abnormal Lab Results - Last 24 Hours (Table) 09/04/24 09/05/24 09/05/24 Range/Units 12:10 12:07 12:37 WBC 2.1 L (3.8-10.6) k/uL RBC 2.68 L (3.80-5.40) m/uL Hgb 7.7 L D (11.4-16.0) gm/dL Hct 23.3 L (34.0-46.0) % RDW 18.9 H (11.5-15.5) % Plt Count 90 L (150-450) k/uL ABG pO2 (83-108) mmHg ABG Total CO2 (19-24) mmol/L ABG O2 Saturation (94-97) % Hemoglobin (11.4-16.0) gm/dL Sodium (137-145) mmol/L Chloride (98-107) mmol/L BUN (7-17) mg/dL Creatinine (0.52-1.04) mg/dL Glucose (74-99) mg/dL POC Glucose (mg/dL) 139 H (70-110) mg/dL Calcium (8.4-10.2) mg/dL Total Protein (6.3-8.2) g/dL Albumin (3.5-5.0) g/dL Crossmatch See Detail Blood Bank Comment Sent to Reference[facility] A Reference Lab Result See BBK REF Reports A 09/05/24 09/05/24 09/06/24 Range/Units 17:28 23:06 04:30 WBC 1.2 L* (3.8-10.6) k/uL RBC 2.36 L (3.80-5.40) m/uL Hgb 7.0 L (11.4-16.0) gm/dL Hct 20.6 L (34.0-46.0) % RDW 18.9 H (11.5-15.5) % Plt Count 64 L (150-450) k/uL ABG pO2 (83-108) mmHg ABG Total CO2 (19-24) mmol/L ABG O2 Saturation (94-97) % Hemoglobin (11.4-16.0) gm/dL Sodium (137-145) mmol/L Chloride (98-107) mmol/L BUN (7-17) mg/dL Creatinine (0.52-1.04) mg/dL Glucose (74-99) mg/dL POC Glucose (mg/dL) 194 H 157 H (70-110) mg/dL Calcium (8.4-10.2) mg/dL Total Protein (6.3-8.2) g/dL Albumin (3.5-5.0) g/dL Crossmatch Blood Bank Comment Reference Lab Result 09/06/24 09/06/24 Range/Units 04:30 05:53 WBC (3.8-10.6) k/uL RBC (3.80-5.40) m/uL Hgb (11.4-16.0) gm/dL Hct (34.0-46.0) % RDW (11.5-15.5) % Plt Count (150-450) k/uL ABG pO2 65 L (83-108) mmHg ABG Total CO2 26 H (19-24) mmol/L ABG O2 Saturation 93.4 L (94-97) % Hemoglobin 6.7 L* (11.4-16.0) gm/dL Sodium 130 L (137-145) mmol/L Chloride 95 L (98-107) mmol/L BUN 73 H (7-17) mg/dL Creatinine 2.09 H (0.52-1.04) mg/dL Glucose 148 H (74-99) mg/dL POC Glucose (mg/dL) (70-110) mg/dL Calcium 7.8 L (8.4-10.2) mg/dL Total Protein 5.4 L (6.3-8.2) g/dL Albumin 2.2 L (3.5-5.0) g/dL Crossmatch Blood Bank Comment Reference Lab Result Assessment and Plan Plan: Assessment: 1. End-stage renal disease maintained on hemodialysis on Tuesday schedule via permacath. 2. Acute COVID-19 infection. 3. Acute hypoxic respiratory failure. 4. A-fib with RVR being followed by cardiology. 5. Staph epi bacteremia. Possibly contamination. Repeat cultures have been negative. 6. Right leg pain. Questionable groin mass versus enlarged lymph node versus joint effusion. Possible MRI to further evaluate down the road. 7. Multiple myeloma. Also noted to have pulmonary nodule. Oncology following. Treatment currently on hold due to acute infection. 8. Anemia of chronic kidney disease and also component of underlying multiple myeloma. Status post IV DDAVP. Status post blood transfusion this admission. 9. Volume overload. Improved with ultrafiltration. 10. Hyperkalemia secondary to chronic kidney disease. Questionable GI bleed. 11. Chronic kidney disease mineral bone disease. Phosphorus level 7.9 dated September 03, 2024. On PhosLo. Plan: Hemodialysis tomorrow. Maintain tube feeds. Wean FiO2 and Levophed. Prognosis guarded.
[2024-09-06 11:46] LABS: Glucose,Whole Blood 174 mg/dL (70-110)
--- NOTE | 2024-09-06 13:04 | P.PN ---
Subjective Progress Note Date: 09/06/24 Principal diagnosis: Acute hypoxic respiratory failure, multifactorial This is a 63-year-old female patient with a known history of multiple myeloma receiving chemotherapy recently, suspected lung cancer with a PET positive right upper lobe 1.7 cm spiculated nodule, chronic obstructive pulmonary disease, chronic tobacco dependence, hypertension, hypothyroidism, end-stage renal disease receiving hemodialysis. She was admitted here on 08/21/2024 with complaints of right lower extremity pain. Been undergoing evaluation. Today on August 23, 2024 she had rapid response called on her twice for increasing shortness of breath and hypoxemia. She was subsequently transferred to the intensive care unit. She was placed on BiPAP / and 100% FiO2. She continued to do poorly and was subsequently intubated and placed on the mechanical ventilator. Currently on assist-control mode at a rate of 20, tidal volume 350, FiO2 100% and a PEEP of 5. She did undergo a left subclavian triple-lumen catheter placement and a right radial arterial line placement. Chest x-ray revealed satisfactory positions of the lines. Subtle scattered opacities may represent atypical pneumonia. Finding out today she is positive for COVID-19. Arterial blood gases post intubation revealed a PaO2 greater than 420, pCO2 of 60 and a pH of 7.28. FiO2 will be decreased accordingly. White count 8.5. Hemoglobin 8.7. Platelets 404. Sodium 129. Potassium 5.7. Bicarb 24. BUN 57. Creatinine 5.92. Glucose 82. She is sedated on propofol at 15 mcg/kg/min. The patient is seen today August 24, 2024 in follow-up in the intensive care unit. She remains intubated on the mechanical ventilator and assist-control mode at a rate of 20, tidal volume 350, FiO2 50% and a PEEP of 5. Morning blood gases revealed a PaO2 of 99. pCO2 48. pH 7.35. She is still requiring norepinephrine at 7 mcg/min. Cardizem drip at 5 mg an hour. Propofol at 40 mcg/kg/min. Lactated Ringer's at 100 mL/h. She is being nourished with vital HP at 10 mL/h with a goal of 46 mL/h. She remains on Symbicort, albuterol, Decadron. She is on Lovenox for DVT prophylaxis. Protonix for GI prophylaxis. Blood cultures now showing gram-positive cocci in clusters. Sputum culture pending. Vancomycin will be given x 1 until further cultures result. White count 6.6. Hemoglobin 7.0. Platelets 352. Sodium 132. Potassium 4.8. Bicarb 25. BUN 32. Creatinine 3.32. Glucose 108. The patient is seen today August 25, 2024 in follow-up in the intensive care unit. She remains intubated on the mechanical ventilator currently in settings of assist-control mode at a rate of 20, tidal volume 350, FiO2 50% and a PEEP of 5. Morning blood gases revealed a PaO2 of 91. pCO2 of 53 and a pH of 7.28. Chest x-ray reveals chronic and for somatic changes with mild cardiomegaly and patchy bilateral multifocal edema. No significant change. She remains on norepinephrine at 4 mcg/min. Cardizem drip is off. She was having sinus pauses yesterday. She has issues with intermittent atrial flutter. She is sedated on propofol at 40 mcg/kg/min. Lactated Ringer's at KVO. She is being nourished with vital HP at 10 mL/h. He received vancomycin x 1 for Staphylococcus epidermidis blood culture. Sputum culture revealed no growth. White count 12.9. Hemoglobin 7.5. Platelets 423. Sodium 133. Potassium 5.0. Bicarb 21. BUN 58. Creatinine 4.48. Glucose 134. She remains on Symbicort, albuterol, Decadron. Lovenox for DVT prophylaxis. Protonix for GI prophylaxis. The patient is seen today August 26, 2024 in follow-up in the intensive care unit. She remains intubated on mechanical ventilator and assist-control mode with a rate of 20, tidal valve 350, FiO2 50% and a PEEP of 5. Morning blood gases revealed a PaO2 of 90. pCO2 57 and a pH of 7.28. She did receive hemodialysis with 500 mL of fluid removed yesterday. She remains on norepinephrine at 1.7 mcg/min. Propofol at 50 mcg/kg/min. Lactated Ringer's at KVO. Vital HP at 10 mL an hour with a goal of 46 mL/h. She is continued with high residuals. May need Reglan if no improvement. She remains on albuterol, Symbicort, Decadron. Lovenox for DVT prophylaxis. Show chronic and for somatic changes and mild cardiomegaly with small to tiny left pleural effusion and patchy bilateral multifocal edema and/or acute infiltrates. No significant change. Blood culture was positive for Staphylococcus epidermidis. Sputum culture revealed no growth. White count 13.3. Hemoglobin 7.5. Platelets 364. Sodium 133. Potassium 5.1. Bicarb 24. BUN 41. Creatinine 2.91. Glucose 137. Currently in a +250 mL balance. On 08/27/2024, this patient is being seen for a follow-up. The patient remains intubated on the mechanical ventilator due to a combination of COPD and CHF exacerbation and COVID-19 infection. Noted the patient also has history of multiple myeloma receiving treatment on an outpatient basis. The patient has end-stage renal disease on hemodialysis and the patient also has history of hypertension hypothyroidism and during the course of the illness, the patient was also found to have a spiculated 1.7 cm right upper lobe lesion that was PET avid. This morning, the patient remains intubated on the mechanical ventilator. The patient is on assist-control mode at rate of 20, tidal volume of 350, FiO2 50% with a PEEP of 5. The patient remains sedated with propofol at 50 mc. The blood gases from today showed a pH of 7.26 with a pCO2 of 56 and pO2 of 70 and the chest x-ray shows stable perihilar and lower lobe pulmonary infiltrates. ET tube is around 5 cm above the danilo. The patient also has a dialysis permacath port in the right subclavian. Blood culture was positive for coagulase-negative staph and Staph epidermidis on 08/23/2024. Sputum culture was negative. The patient is currently on Decadron 8 mg p.o. daily Symbicort. No antibiotic coverage for now. is also on Lovenox for DVT prophylaxis at a dose of 30 mg subcu on a daily basis. Hemodynamically, the patient is requiring a low-dose norepinephrine for blood pressure support. Echocardiogram done on 08/23/2024 shows mild impairment of LV function with an EF of around 40 to 45% evidence of severe pulmonary hypertension and RV dilatation and estimated pulmonary artery pressures of around 56. Blood work from today shows a white cell count of 10.6, hemoglobin 7.2 and platelet count of 333. The sodium level is sodium is 135 at 135 with a potassium of 5.3, BUN 70 creatinine of 4.34. She is still on NE low dose at 0.04mc/kg/min. Her fluid balance is 1.4 L over the past 24 hours. Her last hemodialysis session was on 08/25/2024 with a total of 1 L of fluid was removed. She is on Vital HP at 30 cc. hr. Residuals are oin 250 cc range On 08/28/2023, the patient is being seen for a follow-up. Remains intubated on mechanical ventilator. Patient remains on propofol running at 45 mcg/kg/min. On today's evaluation, the patient is on assist-control mode with rate of 20, tidal volume of 450, FiO2 of 50% and the PEEP was brought up to 8 as the morning blood gases showed a pH of 7.38 with a pCO2 of 50 and pO2 of 66 and this was an FiO2 of 50%. The chest x-ray findings are essentially unchanged. The patient continues to have perihilar and lower lobe pulmonary infiltrates, patchy, slightly worse on the left and there is also some background cardiomegaly. The patient underwent hemodialysis yesterday. The patient is end-stage renal disease and she is currently on hemodialysis. She remains on norepinephrine which is running at 0.1 mcg/kg/min and the patient remains on vasopressin physiologic dose at 0.03 units. The patient has been having difficulties with atrial fibrillation since yesterday. Cardiology has been involved in the case and the patient was started on Cardizem drip and Cardizem drip is running at 5 mg an hour. Nevertheless, the patient continues to be in A-fib and she remains tachycardic. On a separate note, her hemoglobin is at 6.7. Still awaiting an appropriate manage for the packed RBC transfusion. The rest of the blood work shows a white cell count of 7.9, platelet count of 258, BUN is 48 with a creatinine of 2.8, sodium is at 132, chloride is 94 and a serum bicarb is at 27 at this point. Remains on Decadron 8 mg p.o. daily. Afebrile. Receiving enteral feeding for nutritional support. On 08/29/2024, the patient is being seen for a follow-up. The patient remains intubated on the mechanical ventilator. This morning, the patient is on propofol running at 30 mcg/kg/min. The patient is on mechanical ventilator assist-control mode rate of 20, tidal volume of 450, FiO2 50% with a PEEP of 8. Blood gas from today showed a pH of 7.27 with a pCO2 of 53 and pO2 of 97. CAT scan of the brain was negative. CAT scan of the chest was also completed yesterday and it showed interstitial infiltrates bilaterally consistent with COVID-19 pneumonia. At the same time, the patient had areas of consolidation lung bases left more than right highly suspicious for a bacterial infection. Based on that, the patient was started on a combination of Zosyn and vancomycin. The patient received a unit of packed RBC and the hemoglobin today is at 7.3. The patient remains on low-dose norepinephrine running at 0.08 mcg/kg/min. IV fluids are currently at KVO. Receiving vital high-protein at rate of 40 cc an h our. The patient encountered atrial fibrillation and she is currently back in normal sinus rhythm. She remains on amiodarone at 0.5 mg/min. Last hemodialysis session was on 08/27/2024. The white cell count is at 4.7, hemoglobin 7.3 and a platelet count of 188. Sodium is at 131 with a potassium level of 5.1, BUN is 81 with a creatinine of 3.3. No other significant events overnight. The patient is currently afebrile. Overnight, the patient was having low-grade fever On 08/30/2024, the patient is being seen for a follow-up. The patient remains intubated on the mechanical ventilator. This morning, the patient is on propofol running at 15 mcg/kg/min. She is on assist-control mode of mechanical ventilation and the patient is on assist-control rate of 20, tidal volume of 450, FiO2 50% with a PEEP of 6. Blood gas showed pH of 7.26 with a pCO2 of 57 and pO2 of 78. Chest x-ray shows stable, probably slightly improved perihilar and lower lobe pulmonary filtration as the patient is currently on a combination of Zosyn and vancomycin. The patient is also to undergo hemodialysis today. Hemodynamically, the patient is in normal sinus rhythm. The patient is on no pressors. The patient is dealing vital high-protein at rate of 40 cc an hour. Blood work from today shows a white cell count of 3.7 with a hemoglobin 8.2 and a platelet count of 143. The sodium is at 130, potassium is at 5.9 with a chloride of 93 and a bicarb of 19. BUN is 119 with a potassium level of 3.8. The patient remains on Decadron. Rest of the medications are essentially unchanged. The patient was given a sedation holiday yesterday and the patient was able to arouse and follows some simple commands. Not ready for extubation yet. Hemoglobin has been stable. No signs of any bleeding. 08/31/2024, the patient is being seen for a follow-up. The patient remains on propofol running at 25 mcg/kg/min. Breathing seems to be labile and the patient continues to have a high minute ventilation of around 16 to 17 L/min. She remains on assist-control mode of mechanical ventilation at rate of 20, tidal vo lume of 500, FiO2 50% with a PEEP of 6. Blood gas showed a pH of 7.37 with a pCO2 of 45 and pO2 of 74. The chest x-ray findings are stable and the patient stable bilateral pulmonary filtrates. The patient underwent hemodialysis yesterday and a total of 650 cc of fluid was removed. Postdialysis, the patient was placed on norepinephrine which is currently running at 0.06 mcg/kg/min. The patient is in a normal sinus rhythm and she converted as of 3 AM this morning. She is on vital high-protein at rate of 40 cc an hour. Afebrile for now. White cell count is down to 1.7 with a hemoglobin 7.7 and a platelet count of 106. Sodium is at 133, potassium is at 4.7, bicarb is 25 with a BUN of 19 and creatinine of 2.6. Vancomycin trough level was 18. On 09/01/2024, the patient is being seen for a follow-up. Calm and comfortable, remains on propofol at 20 mcg/kg/min. This morning, her breathing is less labored and her minute ventilation is down to 12. She is on a pressure control mode of mechanical ventilation at rate of 20, pressure control of 20, I, 0.8, FiO2 of 50% with a PEEP of 6. Chest x-ray findings are unchanged. The patient is to undergo another session of hemodialysis today. Blood gas from today shows a pH of 7.39 with a pCO2 of 39 and pO2 of 101. Cardiac rhythm is sinus and the patient remains on a combination of oral amiodarone and metoprolol. The patient remains on vital high-protein at rate of 40 cc an hour. No pressors for now. The white cell count of 2.2 renal cell 0.5 and a platelet count of 92. Sodium is 134, BUN is 117 and a creatinine of 3.37. Potassium level is at 5.1. Serum bicarb is at 18. Remains on Zosyn and vancomycin. Sputum cultures have been negative. Blood cultures been negative. Remains on Lovenox 30 mg subcu for DVT prophylaxis. Remains on Decadron 8 mg p.o. on a daily basis. On 09/02/2024, the patient is being seen for a follow-up. The patient remains on propofol running at 30 mcg/kg/min. Calm and comfortable on pressure control mode of mechanical ventilation at rate of 20, pressure control of 20, FiO2 50% with a PEEP of 5. Blood gas showed a pH of 7.37 with a pCO2 of 34 and pO2 of 103. Chest x-ray findings are stable. Remains on low-dose norepinephrine running at 0.1 mcg/kg/min. Hemodialysis performed yesterday a total of 650 cc of fluid was removed. She is in A-fib/flutter and the patient remains on oral amiodarone 400 mg p.o. twice a day and metoprolol 25 mg p.o. twice a day. She remains on Lovenox 30 mg subcu for DVT prophylaxis. She remains on Decadron. The blood work from today shows a white cell count of 1.8 with a hemoglobin of 7.5 and a platelet count of 77. Platelet counts are stable. BUN is 84 with a creatinine of 2.3 and a sodium levels at 132. Vancomycin level is at 17. Patient was evaluated today in the ICU on 09/03/2024 remains intubated and mechanically ventilated, she is on pressure control mode of mechanical ventilation with PI of 20, DI 0.8, rate 14 FiO2 40% and PEEP of 5 ABG showed a pO2 of 75 pCO2 37 pH of 7.38 hence no changes were made in vent settings. Patient requiring norepinephrine at 0.1 mcg/kg/min also on propofol 30 mcg/kg/min Cardizem 5 mg/h she is receiving vital HP at 40 cc/h IV fluid at KVO remains on Zosyn, and she is on hemodialysis today, when I saw the patient she was actually receiving hemodialysis the plan is to remove 1 L. Patient had COV ID over 10 days ago, and she is out of precautions. Her peak airway pressures 26 Plateau pressure is 19. Chest x-ray continues to show multifocal airspace opacities. WBC count is 2.3 hemoglobin is 7 electrolytes are normal BUN is 113 creatinine 2.96 Patient seen today on 09/04 2024 patient, patient remains intubated and mechanically ventilated, he is on pressure control mode of mechanical venti lation with pressure control of 20 rate 18 TI 0.8 FiO2 40% and PEEP of 5 ABG showed a pO2 of 73 pCO2 39 pH of 7.37 hence no adjustments were made on the ventilator settings. Patient is still requiring norepinephrine at 0.1 mcg/kg/min propofol 25 mcg/kg/min she briefly she was on vasopressin last night which is now off, patient had episodes of bradycardia radiating down to 40 heart rate, and cardiology stopped her Cardizem. She will be given metoprolol and amiodarone as per cardiology on the case. Patient had a PICC line placed today, patient is on Decadron and I cut it down to 4 mg daily remains on Lovenox for DVT prophylaxis remains on GI prophylaxis. Patient is awake, opens her eyes, b ut does not seem to track or follow any instructions. Hence I plan to cut down the propofol further and continue to assess mental status on a daily basis. Obviously considering her mental status, she is not ready to be weaned or extubated. Chest x-ray continues to show multiple opacities in both lungs left more so than right WBC count today is low at 1.4 hemoglobin 6.4, patient will be transfused with at least 1 unit of packed RBCs for a hemoglobin of 6.4 Patient was reevaluated today on 09/05/2024, remains in the ICU, intubated and mechanically ventilated, she is on a pressure control mode of mechanical ventilation, pressure control of 20 rate of 18 TI 0.8 FiO2 40% and PEEP of 5 ABG is marginal with a pO2 of 68 pCO2 34 pH of 7.45. Patient is still requiring hemodialysis she is also requiring norepinephrine at 0.14 mcg/kg/min propofol at 10 mcg/kg/min receiving vital HP at 55/55 patient had a drop in her hemoglobin today down to 6 and she is receiving a unit of packed RBCs may require even more. WBC count is 1.6 hemoglobin 6 platelets are 70,000. Antibiotics whitley she is on acyclovir, vancomycin and Zosyn patient is requiring hemodialysis today. Neurologically the patient is about the same, she opens her eyes, does not track, does not follow any instructions, hence will consider discontinuing propofol or cutting the dose further down to fully assess mental status off sed ation completely. Chest x-ray continues to show COPD, and multifocal infiltrates left more so than right. Last sputum culture from 09/01 was nondiagnostic she had at 1 point positive blood cultures for Staph epidermidis blood cultures remain negative all along. Patient was seen today on 09/06/2024, patient remains in the ICU, intubated and mechanically ventilated. Remains on pressure control mode of mechanical ventilation, pressure control of 20 inspiratory time of 0.8 rate normal 18, FiO2 40% and PEEP of 5 ABG is marginal with a pO2 of 65 pCO2 of 35 pH of 7.45 FiO2 was increased from 40% to 45%. Otherwise no changes were made in her vent settings. Patient is still requiring norepinephrine for low blood pressure she is on norepinephrine at 0.09 mcg/kg/min propofol has been on hold since yesterday IV fluid at KVO vital AF at 55 cc/h remains on Zosyn Decadron and Lovenox. Patient continues to have poor mental status, she opens her eyes but does not follow any instructions according to the nurse yesterday she had 1 episode when she was following simple instructions intermittently, patient received a dose of Dilaudid today, and now she is unable to follow any instructions. Continues to have leukopenia with WBC of 1.2 hemoglobin is 7 patient received a unit of packed RBCs yesterday. Basic metabolic profile is relatively normal bicarb is normal BUN is 73 creatinine 2.09 intermittently receiving dialysis. Antibiotics and antiviral whitley, patient remains on acyclovir, remains on Zosyn, off vancomycin. Chest x-ray continues to show similar multifocal airspace opacities left more so than right. Objective - Vital Signs Vital signs: Vital Signs Temp 97.6 F 09/06/24 08:00 Pulse 89 09/06/24 11:00 Resp 20 09/06/24 11:00 BP 87/53 09/06/24 11:00 Pulse Ox 93 L 09/06/24 11:00 FiO2 45 09/06/24 11:02 Intake & Output 09/05/24 09/06/24 09/06/24 18:59 06:59 18:59 Intake Total 5389.587 0203.092 555.624 Output Total 85 1480 250 Balance 1516.474 10.092 305.624 Weight 68.7 kg 70.6 kg Intake: IV 276 276 115 .9NS KVO 240 240 100 .9NS Pressure Bag 36 36 15 Intake, IV Titration 265.474 154.092 75.624 Amount Norepinephrine 8 mg In 218.501 154.092 75.624 Sodium Chloride 0.9% 250 ml @ 0.03 MCG/KG/MIN 3. 106 mls/hr IV .Q24H [facility] Rx#:[id number] propofoL 1,000 mg In 46.973 Empty Bag 1 bag @ 15 MCG/ KG/MIN 4.815 mls/hr IV . [id number] [facility] Rx#:[id number] Tube Feeding 660 660 275 Blood Product 310 Rc Irr As1 Unit 310 [id number] Hemodialysis 400 Other 90 90 Output: Urine 85 80 40 Stool 200 Oral Regurgitation 10 Hemodialysis 900 Hemodialysis Net Amount 500 Other: Voiding Method Indwelling Catheter Indwelling Catheter Indwelling Catheter ABP, PAP, CO, CI - Last Documented Arterial Blood Pressure 99/48 - Exam GENERAL EXAM: 64-year-old female intubated mechanically ventilated, opens eyes but does not follow any instructions HEAD: Normocephalic. Atraumatic EYES: Normal reaction of pupils, equal size. NOSE: Clear with pink turbinates. THROAT: Endotracheal tube and gastric tube are intact. NECK: No masses, no JVD. CHEST: No chest wall deformity. LUNGS: Crackles at the bases no rhonchi no wheezes CVS: S1 and S2 normal with no audible murmur, regular rhythm. ABDOMEN: Soft nontender no MAG no rebound no guarding SKIN: No rashes CENTRAL NERVOUS SYSTEM: Unchanged neurological status, opens eyes, grimaces to pain, but does not follow any instructions. EXTREMITIES: There is no peripheral edema. No clubbing, no cyanosis. Peripheral pulses are intact. - Labs CBC & Chem 7: 09/06/24 04:30 09/06/24 04:30 Labs: Abnormal Lab Results - Last 24 Hours (Table) 09/04/24 09/05/24 09/05/24 Range/Units 12:10 12:37 17:28 WBC 2.1 L (3.8-10.6) k/uL RBC 2.68 L (3.80-5.40) m/uL Hgb 7.7 L D (11.4-16.0) gm/dL Hct 23.3 L (34.0-46.0) % RDW 18.9 H (11.5-15.5) % Plt Count 90 L (150-450) k/uL ABG pO2 (83-108) mmHg ABG Total CO2 (19-24) mmol/L ABG O2 Saturation (94-97) % Hemoglobin (11.4-16.0) gm/dL Sodium (137-145) mmol/L Chloride (98-107) mmol/L BUN (7-17) mg/dL Creatinine (0.52-1.04) mg/dL Glucose (74-99) mg/dL POC Glucose (mg/dL) 194 H (70-110) mg/dL Calcium (8.4-10.2) mg/dL Total Protein (6.3-8.2) g/dL Albumin (3.5-5.0) g/dL Blood Bank Comment Sent to [facility] A Reference Lab Result See [facility] REF Reports A 09/05/24 09/06/24 09/06/24 Range/Units 23:06 04:30 04:30 WBC 1.2 L* (3.8-10.6) k/uL RBC 2.36 L (3.80-5.40) m/uL Hgb 7.0 L (11.4-16.0) gm/dL Hct 20.6 L (34.0-46.0) % RDW 18.9 H (11.5-15.5) % Plt Count 64 L (150-450) k/uL ABG pO2 (83-108) mmHg ABG Total CO2 (19-24) mmol/L ABG O2 Saturation (94-97) % Hemoglobin (11.4-16.0) gm/dL Sodium 130 L (137-145) mmol/L Chloride 95 L (98-107) mmol/L BUN 73 H (7-17) mg/dL Creatinine 2.09 H (0.52-1.04) mg/dL Glucose 148 H (74-99) mg/dL POC Glucose (mg/dL) 157 H (70-110) mg/dL Calcium 7.8 L (8.4-10.2) mg/dL Total Protein 5.4 L (6.3-8.2) g/dL Albumin 2.2 L (3.5-5.0) g/dL Blood Bank Comment Reference Lab Result 09/06/24 09/06/24 Range/Units 05:53 11:45 WBC (3.8-10.6) k/uL RBC (3.80-5.40) m/uL Hgb (11.4-16.0) gm/dL Hct (34.0-46.0) % RDW (11.5-15.5) % Plt Count (150-450) k/uL ABG pO2 65 L (83-108) mmHg ABG Total CO2 26 H (19-24) mmol/L ABG O2 Saturation 93.4 L (94-97) % Hemoglobin 6.7 L* (11.4-16.0) gm/dL Sodium (137-145) mmol/L Chloride (98-107) mmol/L BUN (7-17) mg/dL Creatinine (0.52-1.04) mg/dL Glucose (74-99) mg/dL POC Glucose (mg/dL) 174 H (70-110) mg/dL Calcium (8.4-10.2) mg/dL Total Protein (6.3-8.2) g/dL Albumin (3.5-5.0) g/dL Blood Bank Comment Reference Lab Result Assessment and Plan Assessment: Impression: Acute hypoxic respiratory failure, multifactorial Acute exacerbation of COPD Acute on chronic systolic congestive heart failure Acute COVID-19 pneumonia, underlying bacterial pneumonia is not entirely ruled out. Hence patient remains on Zosyn empirically Sepsis and septic shock with hypotension secondary to pneumonia History of multiple myeloma has been on Revlimid, patient has chronic pancytopenia Right upper lobe spiculated nodule with positive PET scan needs outpatient workup it is 1.7 cm highly suspicious for bronchogenic carcinoma/adenocarcinoma Tobacco dependence syndrome End-stage renal disease, on hemodialysis Benign essential hypertension Chronic anemia Status post PICC line placement on 09/04/2024 Recommendations: Continue ventilatory support Continue hemodynamic support Continue hemodialysis Continue amiodarone Continue acyclovir and Zosyn Continue GI and DVT prophylaxis Continue nutritional support/enteral feeding Monitor hemoglobin transfuse for hemoglobin below 7 Continue to hold sedation Continue daily assessment of mental status and decide on weaning once the patient is more appropriate. Prognosis remains guarded Remains critically ill Critical care time is over 30 minutes Time with Patient: Greater than 30
[2024-09-06 17:41] LABS: Glucose,Whole Blood 229 mg/dL (70-110)
[2024-09-07 00:26] LABS: Glucose,Whole Blood 175 mg/dL (70-110)
[2024-09-07 05:12] LABS: ALT 39 U/L (4-34); AST 23 U/L (14-36); Albumin 2.2 g/dL (3.5-5.0); Alkaline Phosphatase 75 U/L (38-126); Anion Gap 14 mmol/L; Carbon Dioxide 21 mmol/L (22-30); Chloride 96 mmol/L (98-107); Glucose 135 mg/dL (74-99); Phosphorus 8.2 mg/dL (2.5-4.5); Potassium 4.9 mmol/L (3.5-5.1); Sodium 131 mmol/L (137-145); Total Bilirubin 0.6 mg/dL (0.2-1.3); Total Protein 5.5 g/dL (6.3-8.2)
[2024-09-07 05:17] LABS: Anisocytosis Slight; HCT 20.1 % (34.0-46.0); Hypochromasia Slight; MCH 29.5 pg (25.0-35.0); MCHC 33.5 g/dL (31.0-37.0); MCV 88.2 fL (80.0-100.0); RBC 2.28 m/uL (3.80-5.40); RDW 18.8 % (11.5-15.5)
[2024-09-07 05:18] LABS: African American GFR (CKD) 22 (>60 ml/min/1.73 sqM); Non-African American GFR(CKD) 19 (>60 ml/min/1.73 sqM); Platelet Count 68 k/uL (150-450); WBC 1.1 k/uL (3.8-10.6)
[2024-09-07 05:19] LABS: HGB 6.7 gm/dL (11.4-16.0)
[2024-09-07 05:22] LABS: ABG Base Excess -7.8 mmol/L; ABG HCO3 18 mmol/L (21-25); ABG Oxygen Saturation 92.7 % (94-97); ABG PCO2 35 mmHg (35-45); ABG PH 7.31 (7.35-7.45); ABG PO2 66 mmHg (83-108); ABG TCO2 19 mmol/L (19-24); Allen Test Performed? Yes
[2024-09-07 05:31] LABS: Blood Urea Nitrogen 106 mg/dL (7-17)
--- NOTE | 2024-09-07 07:29 | XR ---
EXAMINATION TYPE: XR chest 1V portable DATE OF EXAM: 09/07/2024 4:59 AM COMPARISON: Chest radiograph from one day prior. CLINICAL INDICATION: Female, 64 years old with history of Intubated; [facility] TECHNIQUE: XR chest 1V portable Frontal view of the chest. FINDINGS: Lungs/Pleura: Multifocal airspace opacities. No evidence of pneumothorax or pleural effusion. Pulmonary vascularity: Unremarkable. Heart/mediastinum: Cardiac size is normal. Musculoskeletal: No acute osseous pathology. Other findings: None Lines/Tubes6 Endotracheal tube with distal tip 5.7 cm above the danilo. Nasogastric tube with its distal tip and side-port projecting under the diaphragm. Right internal jugular central venous catheter with distal tip at the cavoatrial junction. Right-sided PICC line with distal tip at the cavoatrial junction. IMPRESSION: 1. Similar multifocal airspace opacities. 2. Stable support lines and tubes.. [facility], , 09/07/2024 7:26 AM
--- NOTE | 2024-09-07 08:45 | P.PN ---
Subjective Progress Note Date: 09/07/24 Principal diagnosis: HPI: This lady has history of multiple comorbid conditions including multiple myeloma, end-stage renal disease on hemodialysis, lung nodules possible malignancy. Labs today suggestive white count of 1.2 and platelet count of 64 and patient has probably myelodysplastic syndrome/multiple myeloma. No anticoagulation. We are seeing her for atrial fibrillation which is paroxysmal in nature. Today she is in atrial fibrillation rate is fairly well-controlled. She is currently on amiodarone 400 mg and also on oral metoprolol. She is on a ventilator. Atrial fibrillation is a between 90 and 100 today off Cardizem drip. She is on a small dose of Levophed. She has multiple comorbid conditions including COVID infection COPD and lung mass. Today she is in atrial fibrillation rate is slightly fast at about 110 bpm. We will continue oral amiodarone and also increased metoprolol to 50 mg TID daily. Patient is on a small dose of Levophed. Prognosis remains quite poor PHYSICIAL EXAM: Vitals are stable JVD not evident S1-S2 with irregularity rhythm short systolic murmur, ventilator assisted breath sounds abdomen is soft groin was not examined lower extremities reveal diminished pulses. IMPRESSION: 1. Paroxysmal atrial fibrillation. 2. Acute respiratory failure on the ventilator. 3. Anemia requiring blood transfusions not anticoagulated. 4. End-stage renal disease. 5. Lung mass probable malignancy and multiple myeloma as well. 6. Multiple myeloma with leukopenia and thrombocytopenia RECOMMENDATIONS: Patient's blood pressure is somewhat better we can wean off the Levophed if possible continue other supportive care, continue metoprolol to 50 mg 3 times daily. Prognosis remains poor. Objective - Vital Signs Vital signs: Vital Signs Temp 98.6 F 09/07/24 08:00 Pulse 106 H 09/07/24 08:30 Resp 20 09/07/24 08:30 BP 105/63 09/07/24 08:30 Pulse Ox 91 L 09/07/24 08:00 FiO2 45 09/07/24 08:24 Intake & Output 09/06/24 09/07/24 09/07/24 18:59 06:59 18:59 Intake Total 1411.414 821.243 80.678 Output Total 385 300 30 Balance 1026.414 521.243 50.678 Weight 69.2 kg Intake: IV 399 253 46 .9NS KVO 260 220 40 .9NS Pressure Bag 39 33 6 Piperacillin-Tazobactam 3 100 .375 gm In Sodium Chloride 0.9% 100 ml @ 25 mls/hr IVPB Q12H [facility] Rx# :[id number] Intake, IV Titration 147.414 73.243 34.678 Amount Norepinephrine 8 mg In 147.414 73.243 34.678 Sodium Chloride 0.9% 250 ml @ 0.03 MCG/KG/MIN 3. 106 mls/hr IV .Q24H [facility] Rx#:[id number] Tube Feeding 715 495 Other 150 Output: Urine 75 0 30 Stool 300 300 Oral Regurgitation 10 Other: Voiding Method Indwelling Catheter Indwelling Catheter ABP, PAP, CO, CI - Last Documented Arterial Blood Pressure 104/55 - Labs CBC & Chem 7: 09/07/24 04:30 09/07/24 04:30 Labs: Abnormal Lab Results - Last 24 Hours (Table) 09/04/24 09/06/24 09/06/24 Range/Units 12:10 11:45 17:39 WBC (3.8-10.6) k/uL RBC (3.80-5.40) m/uL Hgb (11.4-16.0) gm/dL Hct (34.0-46.0) % RDW (11.5-15.5) % Plt Count (150-450) k/uL ABG pH (7.35-7.45) ABG pO2 (83-108) mmHg ABG HCO3 (21-25) mmol/L ABG O2 Saturation (94-97) % Hemoglobin (11.4-16.0) gm/dL Sodium (137-145) mmol/L Chloride (98-107) mmol/L Carbon Dioxide (22-30) mmol/L BUN (7-17) mg/dL Creatinine (0.52-1.04) mg/dL Glucose (74-99) mg/dL POC Glucose (mg/dL) 174 H 229 H (70-110) mg/dL Calcium (8.4-10.2) mg/dL Phosphorus (2.5-4.5) mg/dL ALT (4-34) U/L Total Protein (6.3-8.2) g/dL Albumin (3.5-5.0) g/dL Crossmatch See Detail Blood Bank Comment Sent to ReferenceLab A Reference Lab Result See BBK REF Reports A 09/07/24 09/07/24 09/07/24 Range/Units 00:24 04:30 04:30 WBC 1.1 L* (3.8-10.6) k/uL RBC 2.28 L (3.80-5.40) m/uL Hgb 6.7 L* (11.4-16.0) gm/dL Hct 20.1 L (34.0-46.0) % RDW 18.8 H (11.5-15.5) % Plt Count 68 L (150-450) k/uL ABG pH (7.35-7.45) ABG pO2 (83-108) mmHg ABG HCO3 (21-25) mmol/L ABG O2 Saturation (94-97) % Hemoglobin (11.4-16.0) gm/dL Sodium 131 L (137-145) mmol/L Chloride 96 L (98-107) mmol/L Carbon Dioxide 21 L (22-30) mmol/L BUN 106 H* (7-17) mg/dL Creatinine 2.54 H (0.52-1.04) mg/dL Glucose 135 H (74-99) mg/dL POC Glucose (mg/dL) 175 H (70-110) mg/dL Calcium 8.0 L (8.4-10.2) mg/dL Phosphorus 8.2 H (2.5-4.5) mg/dL ALT 39 H (4-34) U/L Total Protein 5.5 L (6.3-8.2) g/dL Albumin 2.2 L (3.5-5.0) g/dL Crossmatch Blood Bank Comment Reference Lab Result 09/07/24 Range/Units 05:15 WBC (3.8-10.6) k/uL RBC (3.80-5.40) m/uL Hgb (11.4-16.0) gm/dL Hct (34.0-46.0) % RDW (11.5-15.5) % Plt Count (150-450) k/uL ABG pH 7.31 L (7.35-7.45) ABG pO2 66 L (83-108) mmHg ABG HCO3 18 L (21-25) mmol/L ABG O2 Saturation 92.7 L (94-97) % Hemoglobin 6.2 L* (11.4-16.0) gm/dL Sodium (137-145) mmol/L Chloride (98-107) mmol/L Carbon Dioxide (22-30) mmol/L BUN (7-17) mg/dL Creatinine (0.52-1.04) mg/dL Glucose (74-99) mg/dL POC Glucose (mg/dL) (70-110) mg/dL Calcium (8.4-10.2) mg/dL Phosphorus (2.5-4.5) mg/dL ALT (4-34) U/L Total Protein (6.3-8.2) g/dL Albumin (3.5-5.0) g/dL Crossmatch Blood Bank Comment Reference Lab Result Microbiology - Last 24 Hours (Table) 09/01/24 13:55 Blood Culture - Final Blood
--- NOTE | 2024-09-07 08:55 | P.PN ---
Subjective Principal diagnosis: Acute respiratory failure. The patient is 64-year-old female essentially admitted to ICU for respiratory failure atrial fibrillation and element of COVID pneumonia. She is still requiring significant respiratory support although the patient has been weaned to 40% FiO2. Drug holiday is noted. Transfusion is pending. Objective - Vital Signs Vital signs: Vital Signs Temp 98.6 F 09/07/24 08:00 Pulse 106 H 09/07/24 08:30 Resp 20 09/07/24 08:30 BP 105/63 09/07/24 08:30 Pulse Ox 91 L 09/07/24 08:00 FiO2 45 09/07/24 08:24 Intake & Output 09/06/24 09/07/24 09/07/24 18:59 06:59 18:59 Intake Total 1411.414 821.243 80.678 Output Total 385 300 30 Balance 1026.414 521.243 50.678 Weight 69.2 kg Intake: IV 399 253 46 .9NS KVO 260 220 40 .9NS Pressure Bag 39 33 6 Piperacillin-Tazobactam 3 100 .375 gm In Sodium Chloride 0.9% 100 ml @ 25 mls/hr IVPB Q12H [facility] Rx# :[id number] Intake, IV Titration 147.414 73.243 34.678 Amount Norepinephrine 8 mg In 147.414 73.243 34.678 Sodium Chloride 0.9% 250 ml @ 0.03 MCG/KG/MIN 3. 106 mls/hr IV .Q24H [facility] Rx#:[id number] Tube Feeding 715 495 Other 150 Output: Urine 75 0 30 Stool 300 300 Oral Regurgitation 10 Other: Voiding Method Indwelling Catheter Indwelling Catheter ABP, PAP, CO, CI - Last Documented Arterial Blood Pressure 104/55 - Constitutional General appearance: Absent: cooperative - Neck Neck: Absent: lymphadenopathy - Respiratory Respiratory: bilateral: diminished - Cardiovascular Rhythm: regular Heart sounds: normal: S1, S2 Abnormal Heart Sounds: Absent: S3 Gallop - Psychiatric Psychiatric: Absent: A&O x's 3 - Labs CBC & Chem 7: 09/07/24 04:30 09/07/24 04:30 Labs: Abnormal Lab Results - Last 24 Hours (Table) 09/04/24 09/06/24 09/06/24 Range/Units 12:10 11:45 17:39 WBC (3.8-10.6) k/uL RBC (3.80-5.40) m/uL Hgb (11.4-16.0) gm/dL Hct (34.0-46.0) % RDW (11.5-15.5) % Plt Count (150-450) k/uL ABG pH (7.35-7.45) ABG pO2 (83-108) mmHg ABG HCO3 (21-25) mmol/L ABG O2 Saturation (94-97) % Hemoglobin (11.4-16.0) gm/dL Sodium (137-145) mmol/L Chloride (98-107) mmol/L Carbon Dioxide (22-30) mmol/L BUN (7-17) mg/dL Creatinine (0.52-1.04) mg/dL Glucose (74-99) mg/dL POC Glucose (mg/dL) 174 H 229 H (70-110) mg/dL Calcium (8.4-10.2) mg/dL Phosphorus (2.5-4.5) mg/dL ALT (4-34) U/L Total Protein (6.3-8.2) g/dL Albumin (3.5-5.0) g/dL Crossmatch See Detail Blood Bank Comment Sent to Reference[facility] A Reference Lab Result See BBK REF Reports A 09/07/24 09/07/24 09/07/24 Range/Units 00:24 04:30 04:30 WBC 1.1 L* (3.8-10.6) k/uL RBC 2.28 L (3.80-5.40) m/uL Hgb 6.7 L* (11.4-16.0) gm/dL Hct 20.1 L (34.0-46.0) % RDW 18.8 H (11.5-15.5) % Plt Count 68 L (150-450) k/uL ABG pH (7.35-7.45) ABG pO2 (83-108) mmHg ABG HCO3 (21-25) mmol/L ABG O2 Saturation (94-97) % Hemoglobin (11.4-16.0) gm/dL Sodium 131 L (137-145) mmol/L Chloride 96 L (98-107) mmol/L Carbon Dioxide 21 L (22-30) mmol/L BUN 106 H* (7-17) mg/dL Creatinine 2.54 H (0.52-1.04) mg/dL Glucose 135 H (74-99) mg/dL POC Glucose (mg/dL) 175 H (70-110) mg/dL Calcium 8.0 L (8.4-10.2) mg/dL Phosphorus 8.2 H (2.5-4.5) mg/dL ALT 39 H (4-34) U/L Total Protein 5.5 L (6.3-8.2) g/dL Albumin 2.2 L (3.5-5.0) g/dL Crossmatch Blood Bank Comment Reference Lab Result 09/07/24 Range/Units 05:15 WBC (3.8-10.6) k/uL RBC (3.80-5.40) m/uL Hgb (11.4-16.0) gm/dL Hct (34.0-46.0) % RDW (11.5-15.5) % Plt Count (150-450) k/uL ABG pH 7.31 L (7.35-7.45) ABG pO2 66 L (83-108) mmHg ABG HCO3 18 L (21-25) mmol/L ABG O2 Saturation 92.7 L (94-97) % Hemoglobin 6.2 L* (11.4-16.0) gm/dL Sodium (137-145) mmol/L Chloride (98-107) mmol/L Carbon Dioxide (22-30) mmol/L BUN (7-17) mg/dL Creatinine (0.52-1.04) mg/dL Glucose (74-99) mg/dL POC Glucose (mg/dL) (70-110) mg/dL Calcium (8.4-10.2) mg/dL Phosphorus (2.5-4.5) mg/dL ALT (4-34) U/L Total Protein (6.3-8.2) g/dL Albumin (3.5-5.0) g/dL Crossmatch Blood Bank Comment Reference Lab Result Microbiology - Last 24 Hours (Table) 09/01/24 13:55 Blood Culture - Final Blood Assessment and Plan (1) COPD (chronic obstructive pulmonary disease) Current Visit: Yes Status: Acute Code(s): J44.9 - CHRONIC OBSTRUCTIVE PULMONARY DISEASE, UNSPECIFIED SNOMED Code(s): 77846012 (2) End stage renal disease Current Visit: Yes Status: Acute Priority: High Code(s): N18.6 - END STAGE RENAL DISEASE SNOMED Code(s): 99992942 (3) Intractable pain Current Visit: Yes Status: Acute Priority: High Code(s): R52 - PAIN, UNSPECIFIED SNOMED Code(s): 25740676 (4) Multiple myeloma Current Visit: Yes Status: Acute Priority: High Code(s): C90.00 - MULTIPLE MYELOMA NOT HAVING ACHIEVED REMISSION SNOMED Code(s): 455179521 (5) Right hip pain Current Visit: Yes Status: Acute Code(s): M25.551 - PAIN IN RIGHT HIP SNOMED Code(s): 98815147 Plan: Appreciate multiple consultants input. Dialysis treatment per nephrology. Holding off of chemotherapy for multiple myeloma at this time. Transfusion is pending today. Element of COVID. Will continue to follow with front desk coordinator. Prognosis is significantly guarded.
--- NOTE | 2024-09-07 09:46 | P.PN ---
Subjective Patient is seen in follow-up for end-stage renal disease. She is maintained on hemodialysis on Tuesday schedule. Tolerating dialysis well. Hemoglobin 6.7. Will be receiving a unit of blood. No active bleeding per nurse. Intubated. On Levophed. Receiving tube feeds. Vital signs are stable. On Levophed. General: Resting in bed. HEENT: Intubated. LUNGS: Scattered rhonchi. HEART: Rate and Rhythm are regular. ABDOMEN: No distention. EXTREMITITES: 2+ edema. Objective - Vital Signs Vital signs: Vital Signs Temp 98.6 F 09/07/24 09:03 Pulse 113 H 09/07/24 09:03 Resp 18 09/07/24 09:03 BP 97/55 09/07/24 09:03 Pulse Ox 91 L 09/07/24 08:00 FiO2 50 09/07/24 09:28 Intake & Output 09/06/24 09/07/24 09/07/24 18:59 06:59 18:59 Intake Total 1411.414 821.243 103.678 Output Total 385 300 60 Balance 1026.414 521.243 43.678 Weight 69.2 kg Intake: IV 399 253 69 .9NS KVO 260 220 60 .9NS Pressure Bag 39 33 9 Piperacillin-Tazobactam 3 100 .375 gm In Sodium Chloride 0.9% 100 ml @ 25 mls/hr IVPB Q12H [facility] Rx# :[id number] Intake, IV Titration 147.414 73.243 34.678 Amount Norepinephrine 8 mg In 147.414 73.243 34.678 Sodium Chloride 0.9% 250 ml @ 0.03 MCG/KG/MIN 3. 106 mls/hr IV .Q24H [facility] Rx#:[id number] Tube Feeding 715 495 Blood Product 0 Rc Irr As1 Unit 0 [id number] Other 150 Output: Urine 75 0 60 Stool 300 300 Oral Regurgitation 10 Other: Voiding Method Indwelling Catheter Indwelling Catheter ABP, PAP, CO, CI - Last Documented Arterial Blood Pressure 96/55 - Labs CBC & Chem 7: 09/07/24 04:30 09/07/24 04:30 Labs: Abnormal Lab Results - Last 24 Hours (Table) 09/04/24 09/06/24 09/06/24 Range/Units 12:10 11:45 17:39 WBC (3.8-10.6) k/uL RBC (3.80-5.40) m/uL Hgb (11.4-16.0) gm/dL Hct (34.0-46.0) % RDW (11.5-15.5) % Plt Count (150-450) k/uL ABG pH (7.35-7.45) ABG pO2 (83-108) mmHg ABG HCO3 (21-25) mmol/L ABG O2 Saturation (94-97) % Hemoglobin (11.4-16.0) gm/dL Sodium (137-145) mmol/L Chloride (98-107) mmol/L Carbon Dioxide (22-30) mmol/L BUN (7-17) mg/dL Creatinine (0.52-1.04) mg/dL Glucose (74-99) mg/dL POC Glucose (mg/dL) 174 H 229 H (70-110) mg/dL Calcium (8.4-10.2) mg/dL Phosphorus (2.5-4.5) mg/dL ALT (4-34) U/L Total Protein (6.3-8.2) g/dL Albumin (3.5-5.0) g/dL Crossmatch See Detail Blood Bank Comment Sent to Reference[facility] A Reference Lab Result See BBK REF Reports A 09/07/24 09/07/24 09/07/24 Range/Units 00:24 04:30 04:30 WBC 1.1 L* (3.8-10.6) k/uL RBC 2.28 L (3.80-5.40) m/uL Hgb 6.7 L* (11.4-16.0) gm/dL Hct 20.1 L (34.0-46.0) % RDW 18.8 H (11.5-15.5) % Plt Count 68 L (150-450) k/uL ABG pH (7.35-7.45) ABG pO2 (83-108) mmHg ABG HCO3 (21-25) mmol/L ABG O2 Saturation (94-97) % Hemoglobin (11.4-16.0) gm/dL Sodium 131 L (137-145) mmol/L Chloride 96 L (98-107) mmol/L Carbon Dioxide 21 L (22-30) mmol/L BUN 106 H* (7-17) mg/dL Creatinine 2.54 H (0.52-1.04) mg/dL Glucose 135 H (74-99) mg/dL POC Glucose (mg/dL) 175 H (70-110) mg/dL Calcium 8.0 L (8.4-10.2) mg/dL Phosphorus 8.2 H (2.5-4.5) mg/dL ALT 39 H (4-34) U/L Total Protein 5.5 L (6.3-8.2) g/dL Albumin 2.2 L (3.5-5.0) g/dL Crossmatch Blood Bank Comment Reference Lab Result 09/07/24 Range/Units 05:15 WBC (3.8-10.6) k/uL RBC (3.80-5.40) m/uL Hgb (11.4-16.0) gm/dL Hct (34.0-46.0) % RDW (11.5-15.5) % Plt Count (150-450) k/uL ABG pH 7.31 L (7.35-7.45) ABG pO2 66 L (83-108) mmHg ABG HCO3 18 L (21-25) mmol/L ABG O2 Saturation 92.7 L (94-97) % Hemoglobin 6.2 L* (11.4-16.0) gm/dL Sodium (137-145) mmol/L Chloride (98-107) mmol/L Carbon Dioxide (22-30) mmol/L BUN (7-17) mg/dL Creatinine (0.52-1.04) mg/dL Glucose (74-99) mg/dL POC Glucose (mg/dL) (70-110) mg/dL Calcium (8.4-10.2) mg/dL Phosphorus (2.5-4.5) mg/dL ALT (4-34) U/L Total Protein (6.3-8.2) g/dL Albumin (3.5-5.0) g/dL Crossmatch Blood Bank Comment Reference Lab Result Microbiology - Last 24 Hours (Table) 09/01/24 13:55 Blood Culture - Final Blood Assessment and Plan Plan: Assessment: 1. End-stage renal disease maintained on hemodialysis on Tuesday schedule via permacath. 2. Acute COVID-19 infection. 3. Acute hypoxic respiratory failure. 4. A-fib with RVR being followed by cardiology. 5. Staph epi bacteremia. Possibly contamination. Repeat cultures have been negative. 6. Right leg pain. Questionable groin mass versus enlarged lymph node versus joint effusion. Possible MRI to further evaluate down the road. 7. Multiple myeloma. Also noted to have pulmonary nodule. Oncology following. Treatment currently on hold due to acute infection. 8. Anemia of chronic kidney disease and also component of underlying multiple myeloma. Status post IV DDAVP. Status post blood transfusion this admission. 9. Volume overload. 10. Hyperkalemia secondary to chronic kidney disease. Questionable GI bleed. 11. Chronic kidney disease mineral bone disease. Phosphorus level 7.9 dated J anuary 2024. On PhosLo. Plan: Currently seen while undergoing hemodialysis. Maintain tube feeds. Wean FiO2 and Levophed. Scheduled to receive a unit of blood today. Repeat dose of IV DDAVP today. Challenge ultrafiltration as able to tolerate. Prognosis guarded.
[2024-09-07] MEDS: SODIUM BICARB 8.4% 50 ML SYR (1 MEQ/ML) IV STA (10:48)
[2024-09-07 11:42] LABS: Glucose,Whole Blood 120 mg/dL (70-110)
[2024-09-07] MEDS: DESMOPRESSIN ACETATE 20 MCG in SODIUM CHLORIDE 0.9% 50 ML IVPB ONE (11:59)
--- NOTE | 2024-09-07 12:10 | P.CNNES ---
History of Present Illness Consult date: 09/07/24 Requesting physician: Mamie Barry Reason for Consult: ams History of Present Illness: This is a 64-year-old woman with multiple medical issues who was admitted on 08/21/2024 for right lower extremity pain. Neurology is consulted for altered mental status. History is obtained from medical record as well as her nurse. S ayan the patient has a history of multiple myeloma, end-stage renal disease, lung cancer with history of right lower extremity pain over the past several months and it seems that the pain has gotten worse. On 08/23/2024 there was a rapid response that was called twice because of increasing shortness of breath and hypoxia as a result the patient was transferred to ICU and subsequently patient was intubated on the ventilator. Concern for atypical pneumonia and patient was positive for COVID-19. During this hospital admission patient had intermittent atrial flutter. Patient was on norepinephrine during this admission. Her blood culture was staph epidermis. It was felt the patient had COPD and congestive heart failure exacerbation as well as COVID-19 infection causing her respiratory condition. She also has underlying history of hypertension, hypothyroidism, COPD, ex tobacco use. Patient had a PET scan in the past which showed spiculated 1.7 cm right upper lobe lesion. Patient was on sedation, IV propofol and it seems the sedation has been held for 2 days and per the nurse that her first day with the patient but she was following some commands with her. Some of the workup during this hospital visit consisted of: Patient was febrile on 08/28/2024 of Tmax of 102.1F patient has been afebrile since 09/03/2024 Patient has leukopenia on presentation was 5.5 and currently is 1.1 thousand Also has anemia as low as 6.0 also has thrombocytopenia Sodium is 131 Creatinine is 2.54 and is trending down and it was as high as 8.27 on presentation. Urine is 106 Serum glucose is between 120s to 229 Calcium is 8.0, phosphorus is 8.2 AST of 23 ALT is 39 TSH is 0.428 Free T4 is 1.48 SARS COVID 2 PCR is detected X-ray is reported as similar multifocal airspace opacity. CT of the head is reported as no acute bleed or mass effect. No significant interval change compared to the prior study. I personally Reviewed the CT and agree with the report. Review of Systems Limited but as per HPI. Past Medical History Past Medical History: Cancer, Chest Pain / Angina, COPD, Hypertension, Osteoarthritis (OA), Renal Disease, Thyroid Disorder Additional Past Medical History / Comment(s): Hx racing heart, "have a bad left valve", bronchitis, sinus problems, thyroid nodules-benign, occasional lower b ack pain, hx anemia with , "too much protein in bone marrow", stage 5 kidney disease, "Need right hip replacement but can't have it due to kidneys." "Have a bad right knee too."; Multiple Myeloma, HD since May 2024; Covid 08/23/24 History of Any Multi-Drug Resistant Organisms: None Reported Past Surgical History: Cardiac Ablation, Hysterectomy, Orthopedic Surgery, Tubal Ligation Additional Past Surgical History / Comment(s): Cardiac ablation, L foot fracture/pinned, colonoscopies, right kidney biopsy. Past Anesthesia/Blood Transfusion Reactions: No Reported Reaction Additional Past Anesthesia/Blood Transfusion Reaction / Comment(s): Clausterphobic. Past Psychological History: No Psychological Hx Reported Additional Psychological History / Comment(s): Clausterphobic. Smoking Status: Former smoker Past Alcohol Use History: None Reported Additional Past Alcohol Use History / Comment(s): Started smoking in 1971, smoked 1/2 ppd, quit 01/05/22. Used to drink two 32 ounce beers per day, quit 01/01/24. Past Drug Use History: Marijuana Additional Drug Use History / Comment(s): Marijuana gummies, weed salves. Aware no use 24 hrs prior to procedure. - Past Family History Father Additional Family Medical History / Comment(s): Father is from an enlarged heart/iglesias's lung. Mother Family Medical History: No Reported History Medications and Allergies Home Medications Medication Instructions Recorded Confirmed Type Budesonide/Formoterol Fumarate 2 puff INHALATION RT-BID PRN 01/05/24 08/21/24 History [Breyna 80-4.5 Mcg Inhaler] Acetaminophen [Tylenol Extra 500 mg PO BID 05/11/24 08/21/24 History Strength] Acyclovir [Zovirax] 400 mg PO BID 08/21/24 08/21/24 History Ascorbic Acid [Vitamin C] 1,000 mg PO DAILY 08/21/24 08/21/24 History Aspirin EC [Ecotrin Low Dose] 81 mg PO DAILY 08/21/24 08/21/24 History Calcium Carbonate/Vitamin D3 1 tab PO DAILY 08/21/24 08/21/24 History [Calcium 600 mg-Vit D3 10 mcg (400 Unit)] Cholecalciferol [Vitamin D3 (125 125 mcg PO DAILY 08/21/24 08/21/24 History Mcg = 5000 Iu)] Cyanocobalamin [Vitamin B-12] 500 mcg PO DAILY 08/21/24 08/21/24 History Ferrous Sulfate [Feosol] 325 mg PO DAILY 08/21/24 08/21/24 History Folic Acid 0.8 mg PO DAILY 08/21/24 08/21/24 History Glucosam/Christiano-Msm1/C/Giovanny/Bosw 1 tab PO DAILY 08/21/24 08/21/24 History [Glucosamine-Chondroitin Tablet] Loratadine 10 mg PO DAILY 08/21/24 08/21/24 History Multivitamins, Thera [Multivitamin 1 tab PO DAILY 08/21/24 08/21/24 History (formulary)] [place]-3/Dha/Epa/Fish Oil [Fish Oil 1 cap PO DAILY 08/21/24 08/21/24 History 1,000 mg Softgel] Omeprazole 20 mg PO DAILY 08/21/24 08/21/24 History Vit C/E/Zn/Coppr/Lutein/Zeaxan 1 tab PO DAILY 08/21/24 08/21/24 History [Preservision Areds 2 Softgel] Vitamin E (Dl,Tocopheryl Acet) 400 unit PO DAILY 08/21/24 08/21/24 History [Vitamin E (400 Iu = 180 mg)] dexAMETHasone [Decadron] 8 mg PO DAILY 08/21/24 08/21/24 History Allergies Allergy/AdvReac Type Severity Reaction Status Date / Time bee venom protein (honey bee) Allergy Anaphylaxis Verified 08/21/24 10:40 chocolate Allergy Anaphylaxis Verified 08/21/24 19:54 codeine Allergy Anaphylaxis Verified 08/21/24 10:40 levofloxacin [From Levaquin] Allergy Unknown Verified 08/21/24 10:40 red dye Allergy Anaphylaxis Verified 08/21/24 10:40 strawberry Allergy Anaphylaxis Verified 08/21/24 10:40 tree nut [Nut] Allergy Anaphylaxis Verified 12/31/24 19:54 STEROIDS AdvReac Severe rage Uncoded 08/21/24 05:16 behavior-"almost killed my dog" Physical Examination - Vital Signs Vital Signs: Vital Signs Temp Pulse Resp BP Pulse Ox FiO2 09/07/24 11:20 50 09/07/24 10:30 97.3 F L 112 H 14 104/58 96 09/07/24 10:00 101 H 18 109/78 09/07/24 09:32 97.6 F 110 H 17 101/58 98 09/07/24 09:30 111 H 17 98/62 09/07/24 09:28 50 09/07/24 09:12 97.8 F 111 H 19 91/52 99 09/07/24 09:03 98.6 F 113 H 18 97/55 09/07/24 09:00 117 H 18 100/62 09/07/24 08:30 106 H 20 105/63 09/07/24 08:24 45 09/07/24 08:00 98.6 F 105 H 24 113/66 91 L 09/07/24 07:30 116 H 22 97/76 91 L 09/07/24 07:00 123 H 21 134/84 09/07/24 06:30 114 H 19 103/65 09/07/24 06:00 99 21 103/62 91 L 09/07/24 05:30 110 H 16 103/67 91 L 09/07/24 05:00 103 H 20 109/66 09/07/24 04:30 101 H 20 123/72 90 L 09/07/24 04:00 97.8 F 105 H 19 119/73 91 L 09/07/24 03:56 45 09/07/24 03:46 45 09/07/24 03:30 104 H 21 125/67 09/07/24 03:00 93 15 113/72 95 09/07/24 02:30 97 18 112/69 95 09/07/24 02:00 98 15 116/73 94 L 45 09/07/24 01:30 90 11 L 115/66 97 09/07/24 01:00 14 95/72 94 L 09/07/24 00:30 87 16 106/59 96 09/07/24 00:02 45 09/07/24 00:00 97.7 F 73 15 104/68 97 45 09/06/24 23:30 73 15 95/60 97 09/06/24 23:00 72 19 97/61 97 09/06/24 22:30 69 18 97/62 97 09/06/24 22:17 65 19 97/62 98 09/06/24 22:00 65 18 95/61 97 09/06/24 21:30 75 18 96/59 97 09/06/24 21:00 76 19 102/63 97 09/06/24 20:30 76 20 110/65 97 09/06/24 20:22 45 09/06/24 20:00 98.0 F 75 19 98/64 97 45 09/06/24 19:30 80 18 114/75 97 09/06/24 19:00 85 19 115/73 98 45 09/06/24 18:45 92 118/78 98 09/06/24 18:30 90 117/72 97 09/06/24 18:15 84 116/78 96 09/06/24 18:00 89 20 105/60 96 45 09/06/24 17:45 80 18 104/66 96 09/06/24 17:30 85 19 115/66 96 09/06/24 17:15 80 21 110/62 09/06/24 17:00 78 19 113/63 97 45 09/06/24 16:45 80 20 110/64 09/06/24 16:30 87 19 107/59 97 09/06/24 16:15 82 18 117/63 09/06/24 16:00 97.3 F L 93 18 111/60 97 45 09/06/24 15:58 45 09/06/24 15:45 82 20 109/62 09/06/24 15:30 82 21 103/60 09/06/24 15:15 86 18 107/75 97 09/06/24 15:00 89 23 95/54 97 45 09/06/24 14:45 90 23 96/53 96 09/06/24 14:30 94 23 89/50 09/06/24 14:15 87 21 96/58 95 09/06/24 14:00 86 18 90/55 95 09/06/24 13:45 78 20 95/53 96 09/06/24 13:30 90 21 91/53 96 09/06/24 13:15 81 21 93/52 09/06/24 13:00 83 21 92/51 96 45 09/06/24 12:45 80 21 89/51 96 09/06/24 12:30 84 21 88/49 96 09/06/24 12:15 87 20 88/49 09/06/24 12:00 86 23 87/49 95 45 09/06/24 11:45 89 20 88/51 94 L Intake and Output 09/06/24 09/07/24 09/07/24 22:59 06:59 14:59 Intake Total 703.396 587.243 436.678 Output Total 125 300 60 Balance 578.396 287.243 376.678 Intake: IV 184 184 92 .9NS KVO 160 160 80 .9NS Pressure Bag 24 24 12 Intake, IV Titration 49.396 73.243 34.678 Amount Norepinephrine 8 mg In 49.396 73.243 34.678 Sodium Chloride 0.9% 250 ml @ 0.03 MCG/KG/MIN 3. 106 mls/hr IV .Q24H [facility] Rx#:[id number] Tube Feeding 440 330 Blood Product 310 Rc Irr As1 Unit 310 [id number] Other 30 Output: Urine 25 0 60 Stool 100 300 Other: Voiding Method Indwelling Catheter Indwelling Catheter Weight 69.2 kg 69.2 kg ABP, PAP, CO, CI - Last 8 Hours Arterial Blood Pressure 98/58 Arterial Blood Pressure 98/57 Arterial Blood Pressure 106/60 Arterial Blood Pressure 96/55 Arterial Blood Pressure 104/55 Arterial Blood Pressure 101/53 Arterial Blood Pressure 107/56 Arterial Blood Pressure 112/65 Arterial Blood Pressure 116/63 Arterial Blood Pressure 120/65 Arterial Blood Pressure 108/63 Arterial Blood Pressure 117/61 Arterial Blood Pressure 122/64 Arterial Blood Pressure 108/59 General: Lying in bed and does not appear in acute distress. Lung: Intubated on a ventilator and is on Pressure support. Integumentary: Has blackish discoloration of toes (assumed to be due to norep inephrine). HENT: Upon attempting to assess neck she would resist. Neuro: Limited. Patient is severely drowsy but is awake able to voice. He slightly tracks. Not following commands. Pupils are about 5 mm, round bilaterally and reactive to light. Facial weakness from limitation Motor the strength is very hard to assess and has decreased tone throughout. With painful stimuli she has grimacing of the face. Reflex: Hard to assess because of overall cooperation. Plantars are mute bilaterally Results - Laboratory Findings CBC and BMP: 09/07/24 04:30 09/07/24 04:30 Abnormal Lab Findings: Abnormal Labs 08/21/24 08/21/24 08/21/24 05:19 05:19 18:40 WBC RBC 2.71 L Hgb 7.8 L Hct 24.8 L MCHC RDW 19.4 H Plt Count Neutrophils # Lymphocytes # 0.2 L D-Dimer ABG pH ABG pCO2 ABG pO2 ABG HCO3 ABG Total CO2 ABG O2 Saturation Hemoglobin Sodium 132 L Potassium Chloride 95 L Carbon Dioxide 20 L BUN 87 H Creatinine 8.27 H* Glucose 113 H POC Glucose (mg/dL) 112 H Calcium Phosphorus Magnesium AST ALT C-Reactive Protein Total Protein Albumin Albumin (PEP) Rhtqy-2-Glneaocre Huzmo-9-Hajksopjx Procalcitonin TSH Cortisol Urine Protein Urine Blood Ur Leukocyte Esterase Urine RBC Urine WBC Urine Bacteria IgG IgA IgM Free Lambda LC, Quant SARS-CoV-2 (PCR) Crossmatch Blood Bank Comment Reference Lab Result 08/22/24 08/22/24 08/22/24 08:11 08:11 20:05 WBC RBC 2.87 L Hgb 8.3 L Hct 27.0 L MCHC 30.9 L RDW 19.3 H Plt Count Neutrophils # Lymphocytes # D-Dimer ABG pH ABG pCO2 ABG pO2 ABG HCO3 ABG Total CO2 ABG O2 Saturation Hemoglobin Sodium Potassium Chloride 95 L Carbon Dioxide BUN 38 H Creatinine 4.15 H Glucose POC Glucose (mg/dL) 157 H Calcium Phosphorus Magnesium AST ALT C-Reactive Protein Total Protein Albumin Albumin (PEP) Xtfxg-3-Xxmlmdzff Ywdue-2-Dubhaoghk Procalcitonin TSH Cortisol Urine Protein Urine Blood Ur Leukocyte Esterase Urine RBC Urine WBC Urine Bacteria IgG IgA IgM Free Lambda LC, Quant SARS-CoV-2 (PCR) Crossmatch Blood Bank Comment Reference Lab Result 08/22/24 08/22/24 08/22/24 20:24 20:24 20:24 WBC RBC 2.97 L Hgb 8.3 L Hct 27.6 L MCHC 30.0 L RDW 19.3 H Plt Count Neutrophils # 8.1 H Lymphocytes # 0.2 L D-Dimer 1.83 H ABG pH ABG pCO2 ABG pO2 ABG HCO3 ABG Total CO2 ABG O2 Saturation Hemoglobin Sodium 128 L Potassium 5.6 H Chloride 91 L Carbon Dioxide BUN 48 H Creatinine 4.77 H Glucose 157 H POC Glucose (mg/dL) Calcium Phosphorus Magnesium AST ALT C-Reactive Protein Total Protein Albumin 3.3 L Albumin (PEP) Alncq-3-Rjtngqdbm Mgwht-5-Hregjadsl Procalcitonin TSH 0.428 L Cortisol Urine Protein Urine Blood Ur Leukocyte Esterase Urine RBC Urine WBC Urine Bacteria IgG IgA IgM Free Lambda LC, Quant SARS-CoV-2 (PCR) Crossmatch Blood Bank Comment Reference Lab Result 08/23/24 08/23/24 08/23/24 06:12 06:12 11:00 WBC RBC 2.86 L 3.02 L Hgb 8.2 L 8.7 L Hct 26.8 L 28.3 L MCHC 30.4 L 30.9 L RDW 19.3 H 19.3 H Plt Count Neutrophils # 8.0 H Lymphocytes # 0.3 L D-Dimer ABG pH ABG pCO2 ABG pO2 ABG HCO3 ABG Total CO2 ABG O2 Saturation Hemoglobin Sodium 129 L Potassium 5.7 H Chloride 91 L Carbon Dioxide BUN 57 H Creatinine 5.92 H Glucose POC Glucose (mg/dL) Calcium Phosphorus Magnesium AST ALT C-Reactive Protein Total Protein Albumin 2.9 L Albumin (PEP) Pgxrp-2-Chvjpotqu Sqbjc-6-Xwoeldkib Procalcitonin TSH Cortisol Urine Protein Urine Blood Ur Leukocyte Esterase Urine RBC Urine WBC Urine Bacteria IgG IgA IgM Free Lambda LC, Quant SARS-CoV-2 (PCR) Crossmatch Blood Bank Comment Reference Lab Result 08/23/24 08/23/24 08/23/24 12:06 13:16 13:30 WBC RBC Hgb Hct MCHC RDW Plt Count Neutrophils # Lymphocytes # D-Dimer ABG pH 7.33 L ABG pCO2 54 H ABG pO2 190 H ABG HCO3 29 H ABG Total CO2 30 H ABG O2 Saturation 99.9 H Hemoglobin 8.9 L Sodium Potassium Chloride Carbon Dioxide BUN Creatinine Glucose POC Glucose (mg/dL) Calcium Phosphorus Magnesium AST ALT C-Reactive Protein Total Protein Albumin Albumin (PEP) Iiucg-6-Fxefvfsci Ntbwp-0-Sawqkaydd Procalcitonin TSH Cortisol Urine Protein 2+ H Urine Blood Moderate H Ur Leukocyte Esterase Small H Urine RBC Urine WBC 7 H Urine Bacteria Rare H IgG IgA IgM Free Lambda LC, Quant SARS-CoV-2 (PCR) Detected A Crossmatch Blood Bank Comment Reference Lab Result 08/23/24 08/24/24 08/24/24 16:00 02:05 02:05 WBC RBC 2.36 L Hgb 7.0 L D Hct 22.5 L MCHC RDW 19.2 H Plt Count Neutrophils # Lymphocytes # D-Dimer ABG pH 7.28 L ABG pCO2 60 H ABG pO2 >420 H ABG HCO3 28 H ABG Total CO2 30 H ABG O2 Saturation >100.0 H Hemoglobin 7.6 L Sodium 132 L Potassium Chloride 96 L Carbon Dioxide BUN 32 H Creatinine 3.32 H Glucose 108 H POC Glucose (mg/dL) Calcium Phosphorus Magnesium AST ALT C-Reactive Protein Total Protein 5.9 L Albumin 2.6 L Albumin (PEP) Gmrss-9-Khxhsixhk Qtrqm-3-Qmqctsxbb Procalcitonin TSH Cortisol Urine Protein Urine Blood Ur Leukocyte Esterase Urine RBC Urine WBC Urine Bacteria IgG IgA IgM Free Lambda LC, Quant SARS-CoV-2 (PCR) Crossmatch Blood Bank Comment Reference Lab Result 08/24/24 08/24/24 08/24/24 02:05 02:05 05:58 WBC RBC Hgb Hct MCHC RDW Plt Count Neutrophils # Lymphocytes # D-Dimer ABG pH ABG pCO2 48 H ABG pO2 ABG HCO3 27 H ABG Total CO2 28 H ABG O2 Saturation 98.1 H Hemoglobin 6.7 L* Sodium Potassium Chloride Carbon Dioxide BUN Creatinine Glucose POC Glucose (mg/dL) Calcium Phosphorus Magnesium AST ALT C-Reactive Protein Total Protein Albumin Albumin (PEP) Rxges-5-Kkrzwxxae Mnmni-2-Evlkegesx Procalcitonin 39.70 H TSH Cortisol 34.7 H Urine Protein Urine Blood Ur Leukocyte Esterase Urine RBC Urine WBC Urine Bacteria IgG IgA IgM Free Lambda LC, Quant SARS-CoV-2 (PCR) Crossmatch Blood Bank Comment Reference Lab Result 08/24/24 08/24/24 08/24/24 12:12 15:07 17:48 WBC RBC Hgb Hct MCHC RDW Plt Count Neutrophils # Lymphocytes # D-Dimer ABG pH ABG pCO2 ABG pO2 ABG HCO3 ABG Total CO2 ABG O2 Saturation Hemoglobin Sodium 132 L Potassium Chloride 96 L Carbon Dioxide BUN 43 H Creatinine 4.22 H Glucose 144 H POC Glucose (mg/dL) 140 H 163 H Calcium Phosphorus Magnesium AST ALT C-Reactive Protein Total Protein 5.9 L Albumin 2.6 L Albumin (PEP) Yewxk-8-Fseuampdd Xtnso-1-Zngdbxuzl Procalcitonin TSH Cortisol Urine Protein Urine Blood Ur Leukocyte Esterase Urine RBC Urine WBC Urine Bacteria IgG IgA IgM Free Lambda LC, Quant SARS-CoV-2 (PCR) Crossmatch Blood Bank Comment Reference Lab Result 08/25/24 08/25/24 08/25/24 04:53 04:53 05:52 WBC 12.9 H RBC 2.58 L Hgb 7.5 L Hct 24.5 L MCHC 30.8 L RDW 19.1 H Plt Count Neutrophils # Lymphocytes # D-Dimer ABG pH 7.28 L ABG pCO2 53 H ABG pO2 ABG HCO3 ABG Total CO2 27 H ABG O2 Saturation Hemoglobin 7.5 L Sodium 133 L Potassium Chloride 94 L Carbon Dioxide 21 L BUN 58 H Creatinine 4.48 H Glucose 134 H POC Glucose (mg/dL) Calcium Phosphorus Magnesium 2.7 H AST ALT C-Reactive Protein Total Protein Albumin 2.8 L Albumin (PEP) Mxtqo-3-Rdoldxgrk Azwul-1-Zcrzpmbfa Procalcitonin TSH Cortisol Urine Protein Urine Blood Ur Leukocyte Esterase Urine RBC Urine WBC Urine Bacteria IgG IgA IgM Free Lambda LC, Quant SARS-CoV-2 (PCR) Crossmatch Blood Bank Comment Reference Lab Result 08/25/24 08/25/24 08/25/24 07:55 11:33 11:35 WBC RBC Hgb Hct MCHC RDW Plt Count Neutrophils # Lymphocytes # D-Dimer ABG pH ABG pCO2 ABG pO2 ABG HCO3 ABG Total CO2 ABG O2 Saturation Hemoglobin Sodium Potassium Chloride Carbon Dioxide BUN Creatinine Glucose POC Glucose (mg/dL) 137 H 119 H Calcium Phosphorus Magnesium AST ALT C-Reactive Protein Total Protein Albumin Albumin (PEP) Gxnft-7-Elgtychdq Naeuq-7-Gflkqxvpz Procalcitonin TSH Cortisol Urine Protein Urine Blood Ur Leukocyte Esterase Urine RBC Urine WBC Urine Bacteria IgG 2036.0 H IgA <65.0 L IgM <35.0 L Free Lambda LC, Quant SARS-CoV-2 (PCR) Crossmatch Blood Bank Comment Reference Lab Result 08/25/24 08/25/24 08/26/24 17:35 23:40 05:21 WBC 13.3 H RBC 2.56 L Hgb 7.5 L Hct 24.6 L MCHC 30.5 L RDW 18.9 H Plt Count Neutrophils # 12.7 H Lymphocytes # 0.3 L D-Dimer ABG pH ABG pCO2 ABG pO2 ABG HCO3 ABG Total CO2 ABG O2 Saturation Hemoglobin Sodium Potassium Chloride Carbon Dioxide BUN Creatinine Glucose POC Glucose (mg/dL) 137 H 158 H Calcium Phosphorus Magnesium AST ALT C-Reactive Protein Total Protein Albumin Albumin (PEP) Rarnz-4-Yifoerqub Gslms-4-Nhvmeigvh Procalcitonin TSH Cortisol Urine Protein Urine Blood Ur Leukocyte Esterase Urine RBC Urine WBC Urine Bacteria IgG IgA IgM Free Lambda LC, Quant SARS-CoV-2 (PCR) Crossmatch Blood Bank Comment Reference Lab Result 08/26/24 08/26/24 08/26/24 05:21 05:32 05:44 WBC RBC Hgb Hct MCHC RDW Plt Count Neutrophils # Lymphocytes # D-Dimer ABG pH 7.28 L ABG pCO2 57 H ABG pO2 ABG HCO3 27 H ABG Total CO2 28 H ABG O2 Saturation Hemoglobin 7.2 L Sodium 133 L Potassium Chloride Carbon Dioxide BUN 41 H Creatinine 2.91 H Glucose 137 H POC Glucose (mg/dL) 139 H Calcium Phosphorus Magnesium AST ALT C-Reactive Protein Total Protein Albumin 2.7 L Albumin (PEP) Ixuyb-2-Zbypavive Ojemd-7-Evvdaqfvw Procalcitonin TSH Cortisol Urine Protein Urine Blood Ur Leukocyte Esterase Urine RBC Urine WBC Urine Bacteria IgG IgA IgM Free Lambda LC, Quant SARS-CoV-2 (PCR) Crossmatch Blood Bank Comment Reference Lab Result 08/26/24 08/26/24 08/26/24 12:05 17:27 23:24 WBC RBC Hgb Hct MCHC RDW Plt Count Neutrophils # Lymphocytes # D-Dimer ABG pH ABG pCO2 ABG pO2 ABG HCO3 ABG Total CO2 ABG O2 Saturation Hemoglobin Sodium Potassium Chloride Carbon Dioxide BUN Creatinine Glucose POC Glucose (mg/dL) 148 H 150 H 153 H Calcium Phosphorus Magnesium AST ALT C-Reactive Protein Total Protein Albumin Albumin (PEP) Ogrvh-2-Yoggxduju Yoewz-5-Szgqtzzxa Procalcitonin TSH Cortisol Urine Protein Urine Blood Ur Leukocyte Esterase Urine RBC Urine WBC Urine Bacteria IgG IgA IgM Free Lambda LC, Quant SARS-CoV-2 (PCR) Crossmatch Blood Bank Comment Reference Lab Result 08/27/24 08/27/24 08/27/24 00:27 05:33 05:33 WBC RBC 2.50 L Hgb 7.2 L Hct 23.9 L MCHC 30.1 L RDW 18.9 H Plt Count Neutrophils # 10.1 H Lymphocytes # 0.2 L D-Dimer ABG pH ABG pCO2 ABG pO2 ABG HCO3 ABG Total CO2 ABG O2 Saturation Hemoglobin Sodium 135 L Potassium 5.3 H Chloride 97 L Carbon Dioxide BUN 70 H Creatinine 4.34 H Glucose 112 H POC Glucose (mg/dL) 148 H Calcium Phosphorus Magnesium AST ALT C-Reactive Protein Total Protein Albumin Albumin (PEP) Qprpi-5-Litvaaacg Bzvkl-5-Nzaegyihd Procalcitonin TSH Cortisol Urine Protein Urine Blood Ur Leukocyte Esterase Urine RBC Urine WBC Urine Bacteria IgG IgA IgM Free Lambda LC, Quant SARS-CoV-2 (PCR) Crossmatch Blood Bank Comment Reference Lab Result 08/27/24 08/27/24 08/27/24 05:33 05:42 05:48 WBC RBC Hgb Hct MCHC RDW Plt Count Neutrophils # Lymphocytes # D-Dimer ABG pH 7.26 L ABG pCO2 56 H ABG pO2 70 L ABG HCO3 ABG Total CO2 27 H ABG O2 Saturation 91.4 L Hemoglobin 7.1 L Sodium Potassium Chloride Carbon Dioxide BUN Creatinine Glucose POC Glucose (mg/dL) 123 H 125 H Calcium Phosphorus Magnesium AST ALT C-Reactive Protein Total Protein Albumin Albumin (PEP) Xhusy-5-Ymcciakoq Amxir-4-Msqzgoilg Procalcitonin TSH Cortisol Urine Protein Urine Blood Ur Leukocyte Esterase Urine RBC Urine WBC Urine Bacteria IgG IgA IgM Free Lambda LC, Quant SARS-CoV-2 (PCR) Crossmatch Blood Bank Comment Reference Lab Result 08/27/24 08/27/24 08/27/24 05:48 12:01 13:30 WBC RBC Hgb Hct MCHC RDW Plt Count Neutrophils # Lymphocytes # D-Dimer ABG pH 7.27 L ABG pCO2 51 H ABG pO2 71 L ABG HCO3 ABG Total CO2 25 H ABG O2 Saturation 91.6 L Hemoglobin 6.6 L* Sodium Potassium Chloride Carbon Dioxide BUN Creatinine Glucose POC Glucose (mg/dL) 134 H Calcium Phosphorus Magnesium AST ALT C-Reactive Protein Total Protein Albumin Albumin (PEP) 1.98 L Draie-0-Pmhrdbpsk 0.81 H Nybgx-9-Kpngwtqip 1.38 H Procalcitonin TSH Cortisol Urine Protein Urine Blood Ur Leukocyte Esterase Urine RBC Urine WBC Urine Bacteria IgG IgA IgM Free Lambda LC, Quant 475.89 H SARS-CoV-2 (PCR) Crossmatch Blood Bank Comment Reference Lab Result 08/27/24 08/27/24 08/27/24 13:45 14:45 17:33 WBC RBC 2.30 L Hgb 6.7 L* Hct 22.0 L MCHC 30.7 L RDW 19.0 H Plt Count Neutrophils # 8.0 H Lymphocytes # 0.1 L D-Dimer ABG pH ABG pCO2 ABG pO2 ABG HCO3 ABG Total CO2 ABG O2 Saturation Hemoglobin Sodium Potassium Chloride Carbon Dioxide BUN Creatinine Glucose POC Glucose (mg/dL) 160 H Calcium Phosphorus Magnesium AST ALT C-Reactive Protein Total Protein Albumin Albumin (PEP) Rgkww-2-Afmsaabty Tqewn-6-Bltxdsaui Procalcitonin TSH Cortisol Urine Protein Urine Blood Ur Leukocyte Esterase Urine RBC Urine WBC Urine Bacteria IgG IgA IgM Free Lambda LC, Quant SARS-CoV-2 (PCR) Crossmatch See Detail Blood Bank Comment Sent to ReferenceLab A Reference Lab Result 08/27/24 08/27/24 08/27/24 17:36 17:38 23:14 WBC RBC Hgb Hct MCHC RDW Plt Count Neutrophils # Lymphocytes # D-Dimer ABG pH ABG pCO2 ABG pO2 ABG HCO3 ABG Total CO2 ABG O2 Saturation Hemoglobin Sodium Potassium Chloride Carbon Dioxide BUN Creatinine Glucose POC Glucose (mg/dL) 156 H 123 H Calcium Phosphorus Magnesium AST ALT C-Reactive Protein Total Protein Albumin Albumin (PEP) Dhgsc-6-Ssyjehacp Kjujn-7-Wavvnlwod Procalcitonin TSH Cortisol Urine Protein Urine Blood Ur Leukocyte Esterase Urine RBC Urine WBC Urine Bacteria IgG IgA IgM Free Lambda LC, Quant SARS-CoV-2 (PCR) Crossmatch See Detail Blood Bank Comment Sent to ReferenceLab A Reference Lab Result See [facility] REF Reports A 08/28/24 08/28/24 08/28/24 01:30 04:30 04:45 WBC RBC 2.22 L 2.32 L Hgb 6.6 L* 6.7 L* Hct 20.5 L 21.7 L MCHC RDW 19.3 H 19.1 H Plt Count Neutrophils # Lymphocytes # 0.1 L D-Dimer ABG pH ABG pCO2 50 H ABG pO2 66 L ABG HCO3 29 H ABG Total CO2 31 H ABG O2 Saturation 92.1 L Hemoglobin 6.6 L* Sodium Potassium Chloride Carbon Dioxide BUN Creatinine Glucose POC Glucose (mg/dL) Calcium Phosphorus Magnesium AST ALT C-Reactive Protein Total Protein Albumin Albumin (PEP) Ycoji-2-Bdamswpzs Nztis-9-Tmdujolfa Procalcitonin TSH Cortisol Urine Protein Urine Blood Ur Leukocyte Esterase Urine RBC Urine WBC Urine Bacteria IgG IgA IgM Free Lambda LC, Quant SARS-CoV-2 (PCR) Crossmatch Blood Bank Comment Reference Lab Result 08/28/24 08/28/24 08/28/24 04:45 05:28 11:48 WBC RBC Hgb Hct MCHC RDW Plt Count Neutrophils # Lymphocytes # D-Dimer ABG pH ABG pCO2 ABG pO2 ABG HCO3 ABG Total CO2 ABG O2 Saturation Hemoglobin Sodium 132 L Potassium Chloride 94 L Carbon Dioxide BUN 48 H Creatinine 2.85 H Glucose 157 H POC Glucose (mg/dL) 193 H 206 H Calcium 8.1 L Phosphorus Magnesium AST ALT C-Reactive Protein Total Protein Albumin 2.5 L Albumin (PEP) Oexag-3-Zvewwlooq Lqahb-8-Nsefbgwhi Procalcitonin TSH Cortisol Urine Protein Urine Blood Ur Leukocyte Esterase Urine RBC Urine WBC Urine Bacteria IgG IgA IgM Free Lambda LC, Quant SARS-CoV-2 (PCR) Crossmatch Blood Bank Comment Reference Lab Result 08/28/24 08/28/24 08/29/24 18:24 23:09 04:50 WBC RBC Hgb Hct MCHC RDW Plt Count Neutrophils # Lymphocytes # D-Dimer ABG pH 7.27 L ABG pCO2 53 H ABG pO2 ABG HCO3 ABG Total CO2 26 H ABG O2 Saturation Hemoglobin 7.4 L Sodium Potassium Chloride Carbon Dioxide BUN Creatinine Glucose POC Glucose (mg/dL) 154 H 160 H Calcium Phosphorus Magnesium AST ALT C-Reactive Protein Total Protein Albumin Albumin (PEP) Myjzq-0-Ywckuhxpu Fmagj-4-Vxhagkjwn Procalcitonin TSH Cortisol Urine Protein Urine Blood Ur Leukocyte Esterase Urine RBC Urine WBC Urine Bacteria IgG IgA IgM Free Lambda LC, Quant SARS-CoV-2 (PCR) Crossmatch Blood Bank Comment Reference Lab Result 08/29/24 08/29/24 08/29/24 04:55 04:55 04:59 WBC RBC 2.54 L Hgb 7.3 L Hct 23.2 L MCHC RDW 19.7 H Plt Count Neutrophils # Lymphocytes # 0.2 L D-Dimer ABG pH ABG pCO2 ABG pO2 ABG HCO3 ABG Total CO2 ABG O2 Saturation Hemoglobin Sodium 131 L Potassium Chloride 94 L Carbon Dioxide BUN 81 H Creatinine 3.39 H Glucose 143 H POC Glucose (mg/dL) 158 H Calcium 8.3 L Phosphorus Magnesium AST 109 H ALT 65 H C-Reactive Protein Total Protein 6.1 L Albumin 2.4 L Albumin (PEP) Cstvj-0-Ibisxlrfc Oyajl-4-Mezgrtemt Procalcitonin TSH Cortisol Urine Protein Urine Blood Ur Leukocyte Esterase Urine RBC Urine WBC Urine Bacteria IgG IgA IgM Free Lambda LC, Quant SARS-CoV-2 (PCR) Crossmatch Blood Bank Comment Reference Lab Result 08/29/24 08/29/24 08/30/24 12:36 17:28 00:30 WBC RBC Hgb Hct MCHC RDW Plt Count Neutrophils # Lymphocytes # D-Dimer ABG pH ABG pCO2 ABG pO2 ABG HCO3 ABG Total CO2 ABG O2 Saturation Hemoglobin Sodium Potassium Chloride Carbon Dioxide BUN Creatinine Glucose POC Glucose (mg/dL) 126 H 156 H 147 H Calcium Phosphorus Magnesium AST ALT C-Reactive Protein Total Protein Albumin Albumin (PEP) Jtnkz-3-Zzlnhsudv Uuytd-4-Fvzklqhrs Procalcitonin TSH Cortisol Urine Protein Urine Blood Ur Leukocyte Esterase Urine RBC Urine WBC Urine Bacteria IgG IgA IgM Free Lambda LC, Quant SARS-CoV-2 (PCR) Crossmatch Blood Bank Comment Reference Lab Result 08/30/24 08/30/24 08/30/24 05:08 05:24 05:25 WBC RBC Hgb Hct MCHC RDW Plt Count Neutrophils # Lymphocytes # D-Dimer ABG pH 7.26 L ABG pCO2 51 H ABG pO2 78 L ABG HCO3 ABG Total CO2 25 H ABG O2 Saturation 93.4 L Hemoglobin 7.9 L Sodium 130 L Potassium 5.9 H Chloride 93 L Carbon Dioxide 19 L BUN 119 H* Creatinine 3.83 H Glucose 158 H POC Glucose (mg/dL) 165 H Calcium Phosphorus Magnesium AST ALT C-Reactive Protein Total Protein Albumin Albumin (PEP) Aerqg-0-Gkxhqddep Yadpu-0-Ckgjfyjff Procalcitonin TSH Cortisol Urine Protein Urine Blood Ur Leukocyte Esterase Urine RBC Urine WBC Urine Bacteria IgG IgA IgM Free Lambda LC, Quant SARS-CoV-2 (PCR) Crossmatch Blood Bank Comment Reference Lab Result 08/30/24 08/30/24 08/30/24 05:25 11:24 13:31 WBC 3.7 L RBC 2.84 L Hgb 8.2 L Hct 25.3 L MCHC RDW 19.9 H Plt Count 143 L Neutrophils # Lymphocytes # 0.2 L D-Dimer ABG pH ABG pCO2 51 H ABG pO2 140 H ABG HCO3 28 H ABG Total CO2 30 H ABG O2 Saturation 99.2 H Hemoglobin 7.9 L Sodium Potassium Chloride Carbon Dioxide BUN Creatinine Glucose POC Glucose (mg/dL) 135 H Calcium Phosphorus Magnesium AST ALT C-Reactive Protein Total Protein Albumin Albumin (PEP) Ajwrj-3-Gwonabwzo Dmtcx-0-Dkhjuzsxj Procalcitonin TSH Cortisol Urine Protein Urine Blood Ur Leukocyte Esterase Urine RBC Urine WBC Urine Bacteria IgG IgA IgM Free Lambda LC, Quant SARS-CoV-2 (PCR) Crossmatch Blood Bank Comment Reference Lab Result 08/30/24 08/31/24 08/31/24 17:50 00:22 05:37 WBC RBC Hgb Hct MCHC RDW Plt Count Neutrophils # Lymphocytes # D-Dimer ABG pH ABG pCO2 ABG pO2 74 L ABG HCO3 26 H ABG Total CO2 28 H ABG O2 Saturation Hemoglobin 7.5 L Sodium Potassium Chloride Carbon Dioxide BUN Creatinine Glucose POC Glucose (mg/dL) 201 H 135 H Calcium Phosphorus Magnesium AST ALT C-Reactive Protein Total Protein Albumin Albumin (PEP) Rtjdq-7-Bokkkknlt Ccypr-6-Jtzpqxmag Procalcitonin TSH Cortisol Urine Protein Urine Blood Ur Leukocyte Esterase Urine RBC Urine WBC Urine Bacteria IgG IgA IgM Free Lambda LC, Quant SARS-CoV-2 (PCR) Crossmatch Blood Bank Comment Reference Lab Result 08/31/24 08/31/24 08/31/24 06:26 06:26 06:37 WBC 1.7 L RBC 2.66 L Hgb 7.7 L Hct 23.8 L MCHC RDW 19.9 H Plt Count 106 L Neutrophils # Lymphocytes # 0.1 L D-Dimer ABG pH ABG pCO2 ABG pO2 ABG HCO3 ABG Total CO2 ABG O2 Saturation Hemoglobin Sodium 133 L Potassium Chloride 96 L Carbon Dioxide BUN 90 H Creatinine 2.65 H Glucose 139 H POC Glucose (mg/dL) 147 H Calcium 8.1 L Phosphorus Magnesium AST ALT 63 H C-Reactive Protein Total Protein 5.7 L Albumin 2.3 L Albumin (PEP) Yobhv-7-Jskslehtb Fblyz-8-Abwhopwvd Procalcitonin TSH Cortisol Urine Protein Urine Blood Ur Leukocyte Esterase Urine RBC Urine WBC Urine Bacteria IgG IgA IgM Free Lambda LC, Quant SARS-CoV-2 (PCR) Crossmatch Blood Bank Comment Reference Lab Result 08/31/24 08/31/24 08/31/24 11:10 17:22 23:39 WBC RBC Hgb Hct MCHC RDW Plt Count Neutrophils # Lymphocytes # D-Dimer ABG pH ABG pCO2 ABG pO2 ABG HCO3 ABG Total CO2 ABG O2 Saturation Hemoglobin Sodium Potassium Chloride Carbon Dioxide BUN Creatinine Glucose POC Glucose (mg/dL) 150 H 214 H 155 H Calcium Phosphorus Magnesium AST ALT C-Reactive Protein Total Protein Albumin Albumin (PEP) Mbkgo-8-Yxtudvrpl Qtqpy-6-Xbxzevord Procalcitonin TSH Cortisol Urine Protein Urine Blood Ur Leukocyte Esterase Urine RBC Urine WBC Urine Bacteria IgG IgA IgM Free Lambda LC, Quant SARS-CoV-2 (PCR) Crossmatch Blood Bank Comment Reference Lab Result 09/01/24 09/01/24 09/01/24 04:28 04:28 04:28 WBC 2.2 L RBC 2.58 L Hgb 7.5 L Hct 23.0 L MCHC RDW 20.2 H Plt Count 92 L Neutrophils # Lymphocytes # D-Dimer ABG pH ABG pCO2 ABG pO2 ABG HCO3 ABG Total CO2 ABG O2 Saturation Hemoglobin Sodium 134 L Potassium Chloride 96 L Carbon Dioxide 18 L BUN 117 H* Creatinine 3.37 H Glucose 148 H POC Glucose (mg/dL) Calcium Phosphorus Magnesium AST ALT 53 H C-Reactive Protein 21.1 H Total Protein 5.8 L Albumin 2.4 L Albumin (PEP) Uibdp-1-Igmekrjxv Cuadi-4-Vwcynjwzt Procalcitonin TSH Cortisol Urine Protein Urine Blood Ur Leukocyte Esterase Urine RBC Urine WBC Urine Bacteria IgG IgA IgM Free Lambda LC, Quant SARS-CoV-2 (PCR) Crossmatch Blood Bank Comment Reference Lab Result 09/01/24 09/01/24 09/01/24 04:28 05:35 06:08 WBC RBC Hgb Hct MCHC RDW Plt Count Neutrophils # Lymphocytes # D-Dimer ABG pH ABG pCO2 ABG pO2 ABG HCO3 ABG Total CO2 ABG O2 Saturation 98.0 H Hemoglobin 7.3 L Sodium Potassium Chloride Carbon Dioxide BUN Creatinine Glucose POC Glucose (mg/dL) 160 H Calcium Phosphorus Magnesium AST ALT C-Reactive Protein Total Protein Albumin Albumin (PEP) Kpdqd-1-Wtpgtgnef Ykwsd-9-Thjtbcnrk Procalcitonin 15.30 H TSH Cortisol Urine Protein Urine Blood Ur Leukocyte Esterase Urine RBC Urine WBC Urine Bacteria IgG IgA IgM Free Lambda LC, Quant SARS-CoV-2 (PCR) Crossmatch Blood Bank Comment Reference Lab Result 09/01/24 09/01/24 09/01/24 13:55 17:26 23:13 WBC RBC Hgb Hct MCHC RDW Plt Count Neutrophils # Lymphocytes # D-Dimer ABG pH ABG pCO2 ABG pO2 ABG HCO3 ABG Total CO2 ABG O2 Saturation Hemoglobin Sodium Potassium Chloride Carbon Dioxide BUN Creatinine Glucose POC Glucose (mg/dL) 184 H 172 H Calcium Phosphorus Magnesium AST ALT C-Reactive Protein Total Protein Albumin Albumin (PEP) Oqfhg-2-Qcehrwiip Denah-2-Ykgjpdqll Procalcitonin TSH Cortisol Urine Protein 1+ H Urine Blood Moderate H Ur Leukocyte Esterase Urine RBC 24 H Urine WBC Urine Bacteria IgG IgA IgM Free Lambda LC, Quant SARS-CoV-2 (PCR) Crossmatch Blood Bank Comment Reference Lab Result 09/02/24 09/02/24 09/02/24 05:31 05:33 06:30 WBC RBC Hgb Hct MCHC RDW Plt Count Neutrophils # Lymphocytes # D-Dimer ABG pH ABG pCO2 34 L ABG pO2 ABG HCO3 20 L ABG Total CO2 ABG O2 Saturation 98.0 H Hemoglobin Sodium 132 L Potassium Chloride 96 L Carbon Dioxide 21 L BUN 84 H Creatinine 2.30 H Glucose 156 H POC Glucose (mg/dL) 141 H Calcium 8.3 L Phosphorus Magnesium AST ALT C-Reactive Protein Total Protein Albumin Albumin (PEP) Bksgy-1-Thxfdaspy Iuiqm-1-Kmnncrexx Procalcitonin TSH Cortisol Urine Protein Urine Blood Ur Leukocyte Esterase Urine RBC Urine WBC Urine Bacteria IgG IgA IgM Free Lambda LC, Quant SARS-CoV-2 (PCR) Crossmatch Blood Bank Comment Reference Lab Result 09/02/24 09/02/24 09/02/24 06:30 11:19 17:37 WBC 1.8 L RBC 2.64 L Hgb 7.5 L Hct 23.7 L MCHC RDW 20.3 H Plt Count 77 L Neutrophils # Lymphocytes # 0.3 L D-Dimer ABG pH ABG pCO2 ABG pO2 ABG HCO3 ABG Total CO2 ABG O2 Saturation Hemoglobin Sodium Potassium Chloride Carbon Dioxide BUN Creatinine Glucose POC Glucose (mg/dL) 152 H 201 H Calcium Phosphorus Magnesium AST ALT C-Reactive Protein Total Protein Albumin Albumin (PEP) Skoqd-8-Yexemoqqo Rmrvn-4-Lfgqagszf Procalcitonin TSH Cortisol Urine Protein Urine Blood Ur Leukocyte Esterase Urine RBC Urine WBC Urine Bacteria IgG IgA IgM Free Lambda LC, Quant SARS-CoV-2 (PCR) Crossmatch Blood Bank Comment Reference Lab Result 09/02/24 09/03/24 09/03/24 23:23 04:30 04:30 WBC 2.3 L RBC 2.46 L Hgb 7.0 L Hct 21.8 L MCHC RDW 20.4 H Plt Count 81 L Neutrophils # Lymphocytes # 0.3 L D-Dimer ABG pH ABG pCO2 ABG pO2 ABG HCO3 ABG Total CO2 ABG O2 Saturation Hemoglobin Sodium 132 L Potassium Chloride 96 L Carbon Dioxide 20 L BUN 113 H* Creatinine 2.96 H Glucose 151 H POC Glucose (mg/dL) 186 H Calcium 8.3 L Phosphorus Magnesium AST ALT C-Reactive Protein Total Protein Albumin Albumin (PEP) Cvlqc-7-Aivoxxclz Btvsr-5-Tsrntadda Procalcitonin TSH Cortisol Urine Protein Urine Blood Ur Leukocyte Esterase Urine RBC Urine WBC Urine Bacteria IgG IgA IgM Free Lambda LC, Quant SARS-CoV-2 (PCR) Crossmatch Blood Bank Comment Reference Lab Result 09/03/24 09/03/24 09/03/24 04:30 06:18 11:49 WBC RBC Hgb Hct MCHC RDW Plt Count Neutrophils # Lymphocytes # D-Dimer ABG pH ABG pCO2 ABG pO2 ABG HCO3 ABG Total CO2 ABG O2 Saturation Hemoglobin Sodium Potassium Chloride Carbon Dioxide BUN Creatinine Glucose POC Glucose (mg/dL) 145 H 183 H Calcium Phosphorus 7.9 H Magnesium AST ALT C-Reactive Protein Total Protein Albumin Albumin (PEP) Ygzbl-0-Dafqbswha Aqqjr-3-Olctqlzoh Procalcitonin TSH Cortisol Urine Protein Urine Blood Ur Leukocyte Esterase Urine RBC Urine WBC Urine Bacteria IgG IgA IgM Free Lambda LC, Quant SARS-CoV-2 (PCR) Crossmatch Blood Bank Comment Reference Lab Result 09/03/24 09/03/24 09/04/24 17:14 23:28 05:07 WBC RBC Hgb Hct MCHC RDW Plt Count Neutrophils # Lymphocytes # D-Dimer ABG pH ABG pCO2 ABG pO2 73 L ABG HCO3 ABG Total CO2 ABG O2 Saturation 93.7 L Hemoglobin Sodium Potassium Chloride Carbon Dioxide BUN Creatinine Glucose POC Glucose (mg/dL) 213 H 225 H Calcium Phosphorus Magnesium AST ALT C-Reactive Protein Total Protein Albumin Albumin (PEP) Pkqns-3-Ywpzmxxhb Wmjwp-3-Nwtsfstci Procalcitonin TSH Cortisol Urine Protein Urine Blood Ur Leukocyte Esterase Urine RBC Urine WBC Urine Bacteria IgG IgA IgM Free Lambda LC, Quant SARS-CoV-2 (PCR) Crossmatch Blood Bank Comment Reference Lab Result 09/04/24 09/04/24 09/04/24 06:09 08:51 08:51 WBC 1.4 L* RBC 2.22 L Hgb 6.4 L* Hct 19.8 L* MCHC RDW 20.4 H Plt Count 85 L Neutrophils # Lymphocytes # D-Dimer ABG pH ABG pCO2 ABG pO2 ABG HCO3 ABG Total CO2 ABG O2 Saturation Hemoglobin Sodium 133 L Potassium 5.2 H Chloride 97 L Carbon Dioxide 19 L BUN 113 H* Creatinine 2.78 H Glucose 146 H POC Glucose (mg/dL) 171 H Calcium 8.3 L Phosphorus Magnesium AST 9 L ALT C-Reactive Protein Total Protein 5.7 L Albumin 2.4 L Albumin (PEP) Aalcn-9-Zwkyymhxj Xzxdt-3-Nwsjqjpvh Procalcitonin TSH Cortisol Urine Protein Urine Blood Ur Leukocyte Esterase Urine RBC Urine WBC Urine Bacteria IgG IgA IgM Free Lambda LC, Quant SARS-CoV-2 (PCR) Crossmatch Blood Bank Comment Reference Lab Result 09/04/24 09/04/24 09/04/24 10:19 11:38 12:10 WBC RBC Hgb Hct MCHC RDW Plt Count Neutrophils # Lymphocytes # D-Dimer ABG pH ABG pCO2 ABG pO2 ABG HCO3 ABG Total CO2 ABG O2 Saturation Hemoglobin Sodium Potassium Chloride Carbon Dioxide BUN Creatinine Glucose POC Glucose (mg/dL) 151 H Calcium Phosphorus Magnesium AST ALT C-Reactive Protein Total Protein Albumin Albumin (PEP) Rcrga-5-Tpbppavov Equxc-4-Pzmawisil Procalcitonin TSH Cortisol Urine Protein Urine Blood Ur Leukocyte Esterase Urine RBC Urine WBC Urine Bacteria IgG IgA IgM Free Lambda LC, Quant SARS-CoV-2 (PCR) Crossmatch See Detail See Detail Blood Bank Comment Sent to Reference[facility] A Reference Lab Result See BBK REF Reports A 09/04/24 09/05/24 09/05/24 17:51 04:40 05:20 WBC RBC Hgb Hct MCHC RDW Plt Count Neutrophils # Lymphocytes # D-Dimer ABG pH ABG pCO2 34 L ABG pO2 68 L ABG HCO3 ABG Total CO2 25 H ABG O2 Saturation 93.7 L Hemoglobin 5.8 L* Sodium Potassium Chloride Carbon Dioxide BUN Creatinine Glucose POC Glucose (mg/dL) 189 H 145 H Calcium Phosphorus Magnesium AST ALT C-Reactive Protein Total Protein Albumin Albumin (PEP) Tjupy-3-Vmipqnhvv Zbijd-4-Iaxepmkws Procalcitonin TSH Cortisol Urine Protein Urine Blood Ur Leukocyte Esterase Urine RBC Urine WBC Urine Bacteria IgG IgA IgM Free Lambda LC, Quant SARS-CoV-2 (PCR) Crossmatch Blood Bank Comment Reference Lab Result 09/05/24 09/05/24 09/05/24 05:24 05:24 12:07 WBC 1.6 L RBC 2.06 L Hgb 6.0 L* Hct 18.2 L* MCHC RDW 20.5 H Plt Count 70 L Neutrophils # Lymphocytes # D-Dimer ABG pH ABG pCO2 ABG pO2 ABG HCO3 ABG Total CO2 ABG O2 Saturation Hemoglobin Sodium 131 L Potassium Chloride 97 L Carbon Dioxide BUN 92 H Creatinine 2.49 H Glucose 136 H POC Glucose (mg/dL) 139 H Calcium 8.0 L Phosphorus Magnesium AST 13 L ALT C-Reactive Protein Total Protein 5.6 L Albumin 2.2 L Albumin (PEP) Cvaqm-1-Wkvahjdya Fonuw-5-Xxtlgfisf Procalcitonin TSH Cortisol Urine Protein Urine Blood Ur Leukocyte Esterase Urine RBC Urine WBC Urine Bacteria IgG IgA IgM Free Lambda LC, Quant SARS-CoV-2 (PCR) Crossmatch Blood Bank Comment Reference Lab Result 09/05/24 09/05/24 09/05/24 12:37 17:28 23:06 WBC 2.1 L RBC 2.68 L Hgb 7.7 L D Hct 23.3 L MCHC RDW 18.9 H Plt Count 90 L Neutrophils # Lymphocytes # D-Dimer ABG pH ABG pCO2 ABG pO2 ABG HCO3 ABG Total CO2 ABG O2 Saturation Hemoglobin Sodium Potassium Chloride Carbon Dioxide BUN Creatinine Glucose POC Glucose (mg/dL) 194 H 157 H Calcium Phosphorus Magnesium AST ALT C-Reactive Protein Total Protein Albumin Albumin (PEP) Uoxhy-8-Ltuwtphwk Punar-3-Xsjclfkpq Procalcitonin TSH Cortisol Urine Protein Urine Blood Ur Leukocyte Esterase Urine RBC Urine WBC Urine Bacteria IgG IgA IgM Free Lambda LC, Quant SARS-CoV-2 (PCR) Crossmatch Blood Bank Comment Reference Lab Result 09/06/24 09/06/24 09/06/24 04:30 04:30 05:53 WBC 1.2 L* RBC 2.36 L Hgb 7.0 L Hct 20.6 L MCHC RDW 18.9 H Plt Count 64 L Neutrophils # Lymphocytes # D-Dimer ABG pH ABG pCO2 ABG pO2 65 L ABG HCO3 ABG Total CO2 26 H ABG O2 Saturation 93.4 L Hemoglobin 6.7 L* Sodium 130 L Potassium Chloride 95 L Carbon Dioxide BUN 73 H Creatinine 2.09 H Glucose 148 H POC Glucose (mg/dL) Calcium 7.8 L Phosphorus Magnesium AST ALT C-Reactive Protein Total Protein 5.4 L Albumin 2.2 L Albumin (PEP) Ygsus-4-Dwbaqrhpk Ivgum-8-Uczgjkuix Procalcitonin TSH Cortisol Urine Protein Urine Blood Ur Leukocyte Esterase Urine RBC Urine WBC Urine Bacteria IgG IgA IgM Free Lambda LC, Quant SARS-CoV-2 (PCR) Crossmatch Blood Bank Comment Reference Lab Result 09/06/24 09/06/24 09/07/24 11:45 17:39 00:24 WBC RBC Hgb Hct MCHC RDW Plt Count Neutrophils # Lymphocytes # D-Dimer ABG pH ABG pCO2 ABG pO2 ABG HCO3 ABG Total CO2 ABG O2 Saturation Hemoglobin Sodium Potassium Chloride Carbon Dioxide BUN Creatinine Glucose POC Glucose (mg/dL) 174 H 229 H 175 H Calcium Phosphorus Magnesium AST ALT C-Reactive Protein Total Protein Albumin Albumin (PEP) Dnlon-6-Cinhdzuch Dzaln-3-Ovmvqijzr Procalcitonin TSH Cortisol Urine Protein Urine Blood Ur Leukocyte Esterase Urine RBC Urine WBC Urine Bacteria IgG IgA IgM Free Lambda LC, Quant SARS-CoV-2 (PCR) Crossmatch Blood Bank Comment Reference Lab Result 09/07/24 09/07/24 09/07/24 04:30 04:30 05:15 WBC 1.1 L* RBC 2.28 L Hgb 6.7 L* Hct 20.1 L MCHC RDW 18.8 H Plt Count 68 L Neutrophils # Lymphocytes # D-Dimer ABG pH 7.31 L ABG pCO2 ABG pO2 66 L ABG HCO3 18 L ABG Total CO2 ABG O2 Saturation 92.7 L Hemoglobin 6.2 L* Sodium 131 L Potassium Chloride 96 L Carbon Dioxide 21 L BUN 106 H* Creatinine 2.54 H Glucose 135 H POC Glucose (mg/dL) Calcium 8.0 L Phosphorus 8.2 H Magnesium AST ALT 39 H C-Reactive Protein Total Protein 5.5 L Albumin 2.2 L Albumin (PEP) Rspfd-2-Qmrfqudlc Icyrq-1-Darbheysw Procalcitonin TSH Cortisol Urine Protein Urine Blood Ur Leukocyte Esterase Urine RBC Urine WBC Urine Bacteria IgG IgA IgM Free Lambda LC, Quant SARS-CoV-2 (PCR) Crossmatch Blood Bank Comment Reference Lab Result Assessment and Plan Assessment: This is a 64-year-old woman with history of multiple myeloma receiving chemotherapy, suspected lung cancer with PET positive in the right upper lobe who admitted to the hospital on 08/21/2024 because of complaints of worsening right lower extremity pain. This hospital visit patient had shortness of breath and hypoxemia as a result she was intubated on sedation and she has been off sedation for 2 days and ICU attending feels she continues to be altered. Found to be positive COVID-19. She has pancytopenia, she had worsening acute kidney injury with continued dialysis and her kidneys is improving. Altered mental status due to multifactorial: Toxic metabolic encephalopathy, hypoxic due to acute COVID-19 pneumonia, acute on chronic kidney injury. Initial CT of the head on 08/28/23 is unremarkable for acute process. Acute COVID-19 infection Acute COPD exacerbation Acute hypoxic respiratory failure A-fib with RVR Pancytopenia Right leg pain and there is a concern for mass versus enlarged lymph node versus joint effusion History of multiple myeloma End-stage renal disease on dialysis Right upper lobe suspected nodule with positive PET scan suspicious for bronchogenic carcinoma/adenocarcinoma Tobacco dependence Plan: I ordered a repeat CT of the head. I ordered a routine EEG and I doubt this patient is having any seizure or discharges. It seems the EEG cannot be performed today since the patient is on dialysis therefore I will all be completed this Tuesday but if patient has any seizure-like activity recommend a stat EEG over the weekend. Ordered ammonia level, vitamin B12 Patient is on Dilaudid as needed as well as tramadol and recommend holding off any sedation or narcotic/opiate for better neurological examination Cardiology team is consulted ID team is consulted Oncology team is consulted Nephrology team is consulted Will defer the rest of the medical management to primary and other specialist Discussed with the ICU team Thank you for the consultation Dr. Pinky miranda neurology service tomorrow AM. Time with Patient: Greater than 30
--- NOTE | 2024-09-07 12:38 | P.PN ---
Subjective Progress Note Date: 09/05/24 Principal diagnosis: Reason for follow-up is fever Patient is a 64-year-old female with a past medical history significant for COPD hypertension osteoarthritis end-stage renal disease on dialysis to the right subclavian permacatheter since May 2024 initially presented to hospital with right leg pain subsequently did have acute respiratory failure requiring intubation tested positive for COVID-19 starting a fever on 08/28/2024 prompted this consultation on 09/01/2024 On today's visit that is 09/05/2024,the patient continues to be afebrile patient remains to be debated on the vent FiO2 is currently at 40%, no significant purulent secretion through the ET, patient did have some diarrhea but no other changes reported by the nursing staff not requiring pressor support. Patient white count is 2.1 creatinine is 2.49 stool for C. difficile negative Objective - Vital Signs Vital signs: Vital Signs Temp 97.9 F 09/05/24 12:00 Pulse 90 09/05/24 12:00 Resp 20 09/05/24 12:00 BP 121/62 09/05/24 10:26 Pulse Ox 98 09/05/24 12:00 FiO2 40 09/05/24 12:09 Intake & Output 09/04/24 09/05/24 09/05/24 18:59 06:59 18:59 Intake Total 8200.698 2949.052 968.568 Output Total 475 50 50 Balance 0083.644 5031.052 918.568 Weight 68.7 kg 68.7 kg Intake: IV 453 356 138 .9NS KVO 240 220 120 .9NS Pressure Bag 63 36 18 Desmopressin Acetate 20 50 mcg In Sodium Chloride 0. 9% 50 ml @ 200 mls/hr IVPB ONCE ONE Rx#: [id number] Piperacillin-Tazobactam 3 100 100 .375 gm In Sodium Chloride 0.9% 100 ml @ 25 mls/hr IVPB Q12H [facility] Rx# :[id number] Intake, IV Titration 198.309 130.052 130.568 Amount Norepinephrine 8 mg In 149.436 104.265 83.595 Sodium Chloride 0.9% 250 ml @ 0.03 MCG/KG/MIN 3. 106 mls/hr IV .Q24H [facility] Rx#:[id number] propofoL 1,000 mg In 48.873 25.787 46.973 Empty Bag 1 bag @ 15 MCG/ KG/MIN 4.815 mls/hr IV . [id number] [facility] Rx#:[id number] Tube Feeding 660 660 330 Blood Product 310 Rc Irr As1 Unit 310 [id number] Hemodialysis 400 Other 90 90 60 Output: Urine 75 50 50 Hemodialysis 400 Hemodialysis Net Amount 0 Other: Voiding Method Indwelling Catheter Indwelling Catheter Indwelling Catheter ABP, PAP, CO, CI - Last Documented Arterial Blood Pressure 96/53 - Exam GENERAL DESCRIPTION: An elderly female intubated on the vent RESPIRATORY SYSTEM: Unlabored breathing , decreased breath sounds at bases HEART: S1 S2 regular rate and rhythm , ABDOMEN: Soft , no tenderness EXTREMITIES: No edema feet - Labs CBC & Chem 7: 09/07/24 04:30 09/07/24 04:30 Labs: Abnormal Lab Results - Last 24 Hours (Table) 09/04/24 09/04/24 09/04/24 Range/Units 10:19 12:10 17:51 WBC (3.8-10.6) k/uL RBC (3.80-5.40) m/uL Hgb (11.4-16.0) gm/dL Hct (34.0-46.0) % RDW (11.5-15.5) % Plt Count (150-450) k/uL ABG pCO2 (35-45) mmHg ABG pO2 (83-108) mmHg ABG Total CO2 (19-24) mmol/L ABG O2 Saturation (94-97) % Hemoglobin (11.4-16.0) gm/dL Sodium (137-145) mmol/L Chloride (98-107) mmol/L BUN (7-17) mg/dL Creatinine (0.52-1.04) mg/dL Glucose (74-99) mg/dL POC Glucose (mg/dL) 189 H (70-110) mg/dL Calcium (8.4-10.2) mg/dL AST (14-36) U/L Total Protein (6.3-8.2) g/dL Albumin (3.5-5.0) g/dL Crossmatch See Detail See Detail 09/05/24 09/05/24 09/05/24 Range/Units 04:40 05:20 05:24 WBC 1.6 L (3.8-10.6) k/uL RBC 2.06 L (3.80-5.40) m/uL Hgb 6.0 L* (11.4-16.0) gm/dL Hct 18.2 L* (34.0-46.0) % RDW 20.5 H (11.5-15.5) % Plt Count 70 L (150-450) k/uL ABG pCO2 34 L (35-45) mmHg ABG pO2 68 L (83-108) mmHg ABG Total CO2 25 H (19-24) mmol/L ABG O2 Saturation 93.7 L (94-97) % Hemoglobin 5.8 L* (11.4-16.0) gm/dL Sodium (137-145) mmol/L Chloride (98-107) mmol/L BUN (7-17) mg/dL Creatinine (0.52-1.04) mg/dL Glucose (74-99) mg/dL POC Glucose (mg/dL) 145 H (70-110) mg/dL Calcium (8.4-10.2) mg/dL AST (14-36) U/L Total Protein (6.3-8.2) g/dL Albumin (3.5-5.0) g/dL Crossmatch 09/05/24 09/05/24 Range/Units 05:24 12:07 WBC (3.8-10.6) k/uL RBC (3.80-5.40) m/uL Hgb (11.4-16.0) gm/dL Hct (34.0-46.0) % RDW (11.5-15.5) % Plt Count (150-450) k/uL ABG pCO2 (35-45) mmHg ABG pO2 (83-108) mmHg ABG Total CO2 (19-24) mmol/L ABG O2 Saturation (94-97) % Hemoglobin (11.4-16.0) gm/dL Sodium 131 L (137-145) mmol/L Chloride 97 L (98-107) mmol/L BUN 92 H (7-17) mg/dL Creatinine 2.49 H (0.52-1.04) mg/dL Glucose 136 H (74-99) mg/dL POC Glucose (mg/dL) 139 H (70-110) mg/dL Calcium 8.0 L (8.4-10.2) mg/dL AST 13 L (14-36) U/L Total Protein 5.6 L (6.3-8.2) g/dL Albumin 2.2 L (3.5-5.0) g/dL Crossmatch Microbiology - Last 24 Hours (Table) 09/01/24 13:55 Blood Culture - Preliminary Blood 09/01/24 15:32 Gram Stain - Final Sputum Sputum Culture - Final Assessment and Plan (1) Fever Current Visit: Yes Status: Acute Code(s): R50.9 - FEVER, UNSPECIFIED SNOMED Code(s): 576523013 (2) Leukopenia Current Visit: Yes Status: Acute Code(s): D72.819 - DECREASED WHITE BLOOD CELL COUNT, UNSPECIFIED SNOMED Code(s): 39557326 (3) Sepsis Current Visit: Yes Status: Acute Code(s): A41.9 - SEPSIS, UNSPECIFIED ORGANISM SNOMED Code(s): 96288457 (4) Pneumonia Current Visit: Yes Status: Acute Code(s): J18.9 - PNEUMONIA, UNSPECIFIED ORGANISM SNOMED Code(s): 013446769 Plan: 1patient with sepsis in this patient who did have fever and leukopenia patient has been in the hospital for more than 10 days before this initial evaluation with initial presentation to hospital with right leg pain subsequently did have acute respiratory failure requiring intubation and admission to ICU on 08/23/2024 patient was afebrile initially started running a fever as of 08/28/2024 2blood culture has been obtained from the dialysis catheter which has been negative positive UA has been negative, patient did have elevated procalcitonin 3 patient did have resolution of the fever, with culture negative for MRSA vancomycin discontinued continue with Zosyn Dictation was produced using [employer] dictation software. please excuse any grammatical, word or spelling errors. Time with Patient: Less than 30
--- NOTE | 2024-09-07 12:39 | P.PN ---
Subjective Progress Note Date: 09/06/24 Principal diagnosis: Reason for follow-up is fever Patient is a 64-year-old female with a past medical history significant for COPD hypertension osteoarthritis end-stage renal disease on dialysis to the right subclavian permacatheter since May 2024 initially presented to hospital with right leg pain subsequently did have acute respiratory failure requiring intubation tested positive for COVID-19 starting a fever on 08/28/2024 prompted this consultation on 09/01/2024 On today's visit that is 09/06/2024,the patient remains to be afebrile, patient is on ventilator FiO2 is currently at 40% patient is hemodynamically stable no significant purulent secretions in the ET or worsening diarrhea reported by the nursing staff. Patient white count is 1.2 creatinine 2.09 Objective - Vital Signs Vital signs: Vital Signs Temp 97.6 F 09/06/24 08:00 Pulse 89 09/06/24 15:00 Resp 23 09/06/24 15:00 BP 95/54 09/06/24 15:00 Pulse Ox 97 09/06/24 15:00 FiO2 45 09/06/24 15:58 Intake & Output 09/05/24 09/06/24 09/06/24 18:59 06:59 18:59 Intake Total 8417.140 9268.092 1020.018 Output Total 85 1480 265 Balance 1516.474 10.092 755.018 Weight 68.7 kg 70.6 kg Intake: IV 276 276 307 .9NS KVO 240 240 180 .9NS Pressure Bag 36 36 27 Piperacillin-Tazobactam 3 100 .375 gm In Sodium Chloride 0.9% 100 ml @ 25 mls/hr IVPB Q12H [facility] Rx# :[id number] Intake, IV Titration 265.474 154.092 98.018 Amount Norepinephrine 8 mg In 218.501 154.092 98.018 Sodium Chloride 0.9% 250 ml @ 0.03 MCG/KG/MIN 3. 106 mls/hr IV .Q24H [facility] Rx#:[id number] propofoL 1,000 mg In 46.973 Empty Bag 1 bag @ 15 MCG/ KG/MIN 4.815 mls/hr IV . [id number] [facility] Rx#:[id number] Tube Feeding 660 660 495 Blood Product 310 Rc Irr As1 Unit 310 [id number] Hemodialysis 400 Other 90 120 Output: Urine 85 80 55 Stool 200 Oral Regurgitation 10 Hemodialysis 900 Hemodialysis Net Amount 500 Other: Voiding Method Indwelling Catheter Indwelling Catheter Indwelling Catheter ABP, PAP, CO, CI - Last Documented Arterial Blood Pressure 118/60 - Exam GENERAL DESCRIPTION: An elderly female intubated on the vent RESPIRATORY SYSTEM: Unlabored breathing , decreased breath sounds at bases HEART: S1 S2 regular rate and rhythm , ABDOMEN: Soft , no tenderness EXTREMITIES: No edema feet - Labs CBC & Chem 7: 09/07/24 04:30 09/07/24 04:30 Labs: Abnormal Lab Results - Last 24 Hours (Table) 09/04/24 09/05/24 09/05/24 Range/Units 12:10 17:28 23:06 WBC (3.8-10.6) k/uL RBC (3.80-5.40) m/uL Hgb (11.4-16.0) gm/dL Hct (34.0-46.0) % RDW (11.5-15.5) % Plt Count (150-450) k/uL ABG pO2 (83-108) mmHg ABG Total CO2 (19-24) mmol/L ABG O2 Saturation (94-97) % Hemoglobin (11.4-16.0) gm/dL Sodium (137-145) mmol/L Chloride (98-107) mmol/L BUN (7-17) mg/dL Creatinine (0.52-1.04) mg/dL Glucose (74-99) mg/dL POC Glucose (mg/dL) 194 H 157 H (70-110) mg/dL Calcium (8.4-10.2) mg/dL Total Protein (6.3-8.2) g/dL Albumin (3.5-5.0) g/dL Blood Bank Comment Sent to [facility] A Reference Lab Result See BBK REF Reports A 09/06/24 09/06/24 09/06/24 Range/Units 04:30 04:30 05:53 WBC 1.2 L* (3.8-10.6) k/uL RBC 2.36 L (3.80-5.40) m/uL Hgb 7.0 L (11.4-16.0) gm/dL Hct 20.6 L (34.0-46.0) % RDW 18.9 H (11.5-15.5) % Plt Count 64 L (150-450) k/uL ABG pO2 65 L (83-108) mmHg ABG Total CO2 26 H (19-24) mmol/L ABG O2 Saturation 93.4 L (94-97) % Hemoglobin 6.7 L* (11.4-16.0) gm/dL Sodium 130 L (137-145) mmol/L Chloride 95 L (98-107) mmol/L BUN 73 H (7-17) mg/dL Creatinine 2.09 H (0.52-1.04) mg/dL Glucose 148 H (74-99) mg/dL POC Glucose (mg/dL) (70-110) mg/dL Calcium 7.8 L (8.4-10.2) mg/dL Total Protein 5.4 L (6.3-8.2) g/dL Albumin 2.2 L (3.5-5.0) g/dL Blood Bank Comment Reference Lab Result 09/06/24 Range/Units 11:45 WBC (3.8-10.6) k/uL RBC (3.80-5.40) m/uL Hgb (11.4-16.0) gm/dL Hct (34.0-46.0) % RDW (11.5-15.5) % Plt Count (150-450) k/uL ABG pO2 (83-108) mmHg ABG Total CO2 (19-24) mmol/L ABG O2 Saturation (94-97) % Hemoglobin (11.4-16.0) gm/dL Sodium (137-145) mmol/L Chloride (98-107) mmol/L BUN (7-17) mg/dL Creatinine (0.52-1.04) mg/dL Glucose (74-99) mg/dL POC Glucose (mg/dL) 174 H (70-110) mg/dL Calcium (8.4-10.2) mg/dL Total Protein (6.3-8.2) g/dL Albumin (3.5-5.0) g/dL Blood Bank Comment Reference Lab Result Assessment and Plan (1) Fever Current Visit: Yes Status: Acute Code(s): R50.9 - FEVER, UNSPECIFIED SNOMED Code(s): 006297321 (2) Leukopenia Current Visit: Yes Status: Acute Code(s): D72.819 - DECREASED WHITE BLOOD CELL COUNT, UNSPECIFIED SNOMED Code(s): 60112517 (3) Sepsis Current Visit: Yes Status: Acute Code(s): A41.9 - SEPSIS, UNSPECIFIED ORGANISM SNOMED Code(s): 17952831 Plan: 1patient with sepsis in this patient who did have fever and leukopenia patient has been in the hospital for more than 10 days before this initial evaluation with initial presentation to hospital with right leg pain subsequently did have acute respiratory failure requiring intubation and admission to ICU on 08/23/2024 patient was afebrile initially started running a fever as of 08/28/2024 2blood culture has been negative positive UA has been negative, sputum culture negative, patient did have elevated procalcitonin 3 patient did have resolution of the fever still have significant leukopenia patient to continue with Zosyn and monitor clinical course closely Dictation was produced using [employer] dictation software. please excuse any grammatical, word or spelling errors. Time with Patient: Less than 30
--- NOTE | 2024-09-07 12:41 | P.PN ---
Subjective Progress Note Date: 09/07/24 Principal diagnosis: Reason for follow-up is fever Patient is a 64-year-old female with a past medical history significant for COPD hypertension osteoarthritis end-stage renal disease on dialysis to the right subclavian permacatheter since May 2024 initially presented to hospital with right leg pain subsequently did have acute respiratory failure requiring intubation tested positive for COVID-19 starting a fever on 08/28/2024 prompted this consultation on 09/01/2024 On today's visit that is 09/07/2024, the patient has been afebrile, the patient is intubated on the vent FiO2 is up to 50% no significant purulent secretion through the ET mostly diarrhea and the changes reported by the nursing staff. Patient white count is down to 1.1 creatinine is 2.54 chest x-ray multifocal airspace opacities, sputum culture has been negative Objective - Vital Signs Vital signs: Vital Signs Temp 97.0 F L 09/07/24 12:00 Pulse 101 H 09/07/24 12:00 Resp 16 09/07/24 12:00 BP 113/82 09/07/24 12:00 Pulse Ox 96 09/07/24 12:00 FiO2 50 09/07/24 12:00 Intake & Output 09/06/24 09/07/24 09/07/24 18:59 06:59 18:59 Intake Total 1411.414 821.243 482.678 Output Total 385 300 65 Balance 1026.414 521.243 417.678 Weight 69.2 kg 69.2 kg Intake: IV 399 253 138 .9NS KVO 260 220 120 .9NS Pressure Bag 39 33 18 Piperacillin-Tazobactam 3 100 .375 gm In Sodium Chloride 0.9% 100 ml @ 25 mls/hr IVPB Q12H [facility] Rx# :[id number] Intake, IV Titration 147.414 73.243 34.678 Amount Norepinephrine 8 mg In 147.414 73.243 34.678 Sodium Chloride 0.9% 250 ml @ 0.03 MCG/KG/MIN 3. 106 mls/hr IV .Q24H [facility] Rx#:[id number] Tube Feeding 715 495 Blood Product 310 Rc Irr As1 Unit 310 [id number] Other 150 Output: Urine 75 0 65 Stool 300 300 Oral Regurgitation 10 Other: Voiding Method Indwelling Catheter Indwelling Catheter ABP, PAP, CO, CI - Last Documented Arterial Blood Pressure 121/67 - Exam GENERAL DESCRIPTION: An elderly female intubated on the vent RESPIRATORY SYSTEM: Unlabored breathing , decreased breath sounds at bases HEART: S1 S2 regular rate and rhythm , ABDOMEN: Soft , no tenderness EXTREMITIES: No edema feet - Labs CBC & Chem 7: 09/07/24 04:30 09/07/24 04:30 Labs: Abnormal Lab Results - Last 24 Hours (Table) 09/04/24 09/06/24 09/07/24 Range/Units 12:10 17:39 00:24 WBC (3.8-10.6) k/uL RBC (3.80-5.40) m/uL Hgb (11.4-16.0) gm/dL Hct (34.0-46.0) % RDW (11.5-15.5) % Plt Count (150-450) k/uL ABG pH (7.35-7.45) ABG pO2 (83-108) mmHg ABG HCO3 (21-25) mmol/L ABG O2 Saturation (94-97) % Hemoglobin (11.4-16.0) gm/dL Sodium (137-145) mmol/L Chloride (98-107) mmol/L Carbon Dioxide (22-30) mmol/L BUN (7-17) mg/dL Creatinine (0.52-1.04) mg/dL Glucose (74-99) mg/dL POC Glucose (mg/dL) 229 H 175 H (70-110) mg/dL Calcium (8.4-10.2) mg/dL Phosphorus (2.5-4.5) mg/dL ALT (4-34) U/L Total Protein (6.3-8.2) g/dL Albumin (3.5-5.0) g/dL Crossmatch See Detail Blood Bank Comment Sent to [facility] A Reference Lab Result See [facility] REF Reports A 09/07/24 09/07/24 09/07/24 Range/Units 04:30 04:30 05:15 WBC 1.1 L* (3.8-10.6) k/uL RBC 2.28 L (3.80-5.40) m/uL Hgb 6.7 L* (11.4-16.0) gm/dL Hct 20.1 L (34.0-46.0) % RDW 18.8 H (11.5-15.5) % Plt Count 68 L (150-450) k/uL ABG pH 7.31 L (7.35-7.45) ABG pO2 66 L (83-108) mmHg ABG HCO3 18 L (21-25) mmol/L ABG O2 Saturation 92.7 L (94-97) % Hemoglobin 6.2 L* (11.4-16.0) gm/dL Sodium 131 L (137-145) mmol/L Chloride 96 L (98-107) mmol/L Carbon Dioxide 21 L (22-30) mmol/L BUN 106 H* (7-17) mg/dL Creatinine 2.54 H (0.52-1.04) mg/dL Glucose 135 H (74-99) mg/dL POC Glucose (mg/dL) (70-110) mg/dL Calcium 8.0 L (8.4-10.2) mg/dL Phosphorus 8.2 H (2.5-4.5) mg/dL ALT 39 H (4-34) U/L Total Protein 5.5 L (6.3-8.2) g/dL Albumin 2.2 L (3.5-5.0) [facility] Reference Lab Result 09/07/24 Range/Units 11:41 WBC (3.8-10.6) k/uL RBC (3.80-5.40) m/uL Hgb (11.4-16.0) gm/dL Hct (34.0-46.0) % RDW (11.5-15.5) % Plt Count (150-450) k/uL ABG pH (7.35-7.45) ABG pO2 (83-108) mmHg ABG HCO3 (21-25) mmol/L ABG O2 Saturation (94-97) % Hemoglobin (11.4-16.0) gm/dL Sodium (137-145) mmol/L Chloride (98-107) mmol/L Carbon Dioxide (22-30) mmol/L BUN (7-17) mg/dL Creatinine (0.52-1.04) mg/dL Glucose (74-99) mg/dL POC Glucose (mg/dL) 120 H (70-110) mg/dL Calcium (8.4-10.2) mg/dL Phosphorus (2.5-4.5) mg/dL ALT (4-34) U/L Total Protein (6.3-8.2) g/dL Albumin (3.5-5.0) g/dL Crossmatch Blood Bank Comment Reference Lab Result Microbiology - Last 24 Hours (Table) 09/01/24 13:55 Blood Culture - Final Blood Assessment and Plan (1) Fever Current Visit: Yes Status: Acute Code(s): R50.9 - FEVER, UNSPECIFIED SNOMED Code(s): 432915939 (2) Leukopenia Current Visit: Yes Status: Acute Code(s): D72.819 - DECREASED WHITE BLOOD CELL COUNT, UNSPECIFIED SNOMED Code(s): 28182124 (3) Sepsis Current Visit: Yes Status: Acute Code(s): A41.9 - SEPSIS, UNSPECIFIED ORGANISM SNOMED Code(s): 45525117 Plan: 1patient with sepsis in this patient who did have fever and leukopenia patient has been in the hospital for more than 10 days before this initial evaluation with initial presentation to hospital with right leg pain subsequently did have acute respiratory failure requiring intubation and admission to ICU on 08/23/2024 patient was afebrile initially started running a fever as of 08/28/2024 2blood culture has been negative positive UA has been negative, sputum culture negative, patient did have elevated procalcitonin 3 patient did have resolution of the fever however the patient continued to have significant leukopenia 4-patient will be continued with Zosyn for another few days and monitor clinical course closely Dictation was produced using [employer] dictation software. please excuse any grammatical, word or spelling errors. Time with Patient: Less than 30
--- NOTE | 2024-09-07 13:40 | P.PN ---
Subjective Progress Note Date: 09/07/24 Principal diagnosis: Acute hypoxic respiratory failure, multifactorial This is a 63-year-old female patient with a known history of multiple myeloma receiving chemotherapy recently, suspected lung cancer with a PET positive right upper lobe 1.7 cm spiculated nodule, chronic obstructive pulmonary disease, chronic tobacco dependence, hypertension, hypothyroidism, end-stage renal disease receiving hemodialysis. She was admitted here on 08/21/2024 with complaints of right lower extremity pain. Been undergoing evaluation. Today on August 23, 2024 she had rapid response called on her twice for increasing shortness of breath and hypoxemia. She was subsequently transferred to the intensive care unit. She was placed on BiPAP / and 100% FiO2. She continued to do poorly and was subsequently intubated and placed on the mechanical ventilator. Currently on assist-control mode at a rate of 20, tidal volume 350, FiO2 100% and a PEEP of 5. She did undergo a left subclavian triple-lumen catheter placement and a right radial arterial line placement. Chest x-ray revealed satisfactory positions of the lines. Subtle scattered opacities may represent atypical pneumonia. Finding out today she is positive for COVID-19. Arterial blood gases post intubation revealed a PaO2 greater than 420, pCO2 of 60 and a pH of 7.28. FiO2 will be decreased accordingly. White count 8.5. Hemoglobin 8.7. Platelets 404. Sodium 129. Potassium 5.7. Bicarb 24. BUN 57. Creatinine 5.92. Glucose 82. She is sedated on propofol at 15 mcg/kg/min. The patient is seen today August 24, 2024 in follow-up in the intensive care unit. She remains intubated on the mechanical ventilator and assist-control mode at a rate of 20, tidal volume 350, FiO2 50% and a PEEP of 5. Morning blood gases revealed a PaO2 of 99. pCO2 48. pH 7.35. She is still requiring norepinephrine at 7 mcg/min. Cardizem drip at 5 mg an hour. Propofol at 40 mcg/kg/min. Lactated Ringer's at 100 mL/h. She is being nourished with vital HP at 10 mL/h with a goal of 46 mL/h. She remains on Symbicort, albuterol, Decadron. She is on Lovenox for DVT prophylaxis. Protonix for GI prophylaxis. Blood cultures now showing gram-positive cocci in clusters. Sputum culture pending. Vancomycin will be given x 1 until further cultures result. White count 6.6. Hemoglobin 7.0. Platelets 352. Sodium 132. Potassium 4.8. Bicarb 25. BUN 32. Creatinine 3.32. Glucose 108. The patient is seen today August 25, 2024 in follow-up in the intensive care unit. She remains intubated on the mechanical ventilator currently in settings of assist-control mode at a rate of 20, tidal volume 350, FiO2 50% and a PEEP of 5. Morning blood gases revealed a PaO2 of 91. pCO2 of 53 and a pH of 7.28. Chest x-ray reveals chronic and for somatic changes with mild cardiomegaly and patchy bilateral multifocal edema. No significant change. She remains on norepinephrine at 4 mcg/min. Cardizem drip is off. She was having sinus pauses yesterday. She has issues with intermittent atrial flutter. She is sedated on propofol at 40 mcg/kg/min. Lactated Ringer's at KVO. She is being nourished with vital HP at 10 mL/h. He received vancomycin x 1 for Staphylococcus epidermidis blood culture. Sputum culture revealed no growth. White count 12.9. Hemoglobin 7.5. Platelets 423. Sodium 133. Potassium 5.0. Bicarb 21. BUN 58. Creatinine 4.48. Glucose 134. She remains on Symbicort, albuterol, Decadron. Lovenox for DVT prophylaxis. Protonix for GI prophylaxis. The patient is seen today August 26, 2024 in follow-up in the intensive care unit. She remains intubated on mechanical ventilator and assist-control mode with a rate of 20, tidal valve 350, FiO2 50% and a PEEP of 5. Morning blood gases revealed a PaO2 of 90. pCO2 57 and a pH of 7.28. She did receive hemodialysis with 500 mL of fluid removed yesterday. She remains on norepinephrine at 1.7 mcg/min. Propofol at 50 mcg/kg/min. Lactated Ringer's at KVO. Vital HP at 10 mL an hour with a goal of 46 mL/h. She is continued with high residuals. May need Reglan if no improvement. She remains on albuterol, Symbicort, Decadron. Lovenox for DVT prophylaxis. Show chronic and for somatic changes and mild cardiomegaly with small to tiny left pleural effusion and patchy bilateral multifocal edema and/or acute infiltrates. No significant change. Blood culture was positive for Staphylococcus epidermidis. Sputum culture revealed no growth. White count 13.3. Hemoglobin 7.5. Platelets 364. Sodium 133. Potassium 5.1. Bicarb 24. BUN 41. Creatinine 2.91. Glucose 137. Currently in a +250 mL balance. On 08/27/2024, this patient is being seen for a follow-up. The patient remains intubated on the mechanical ventilator due to a combination of COPD and CHF exacerbation and COVID-19 infection. Noted the patient also has history of multiple myeloma receiving treatment on an outpatient basis. The patient has end-stage renal disease on hemodialysis and the patient also has history of hypertension hypothyroidism and during the course of the illness, the patient was also found to have a spiculated 1.7 cm right upper lobe lesion that was PET avid. This morning, the patient remains intubated on the mechanical ventilator. The patient is on assist-control mode at rate of 20, tidal volume of 350, FiO2 50% with a PEEP of 5. The patient remains sedated with propofol at 50 mc. The blood gases from today showed a pH of 7.26 with a pCO2 of 56 and pO2 of 70 and the chest x-ray shows stable perihilar and lower lobe pulmonary infiltrates. ET tube is around 5 cm above the danilo. The patient also has a dialysis permacath port in the right subclavian. Blood culture was positive for coagulase-negative staph and Staph epidermidis on 08/23/2024. Sputum culture was negative. The patient is currently on Decadron 8 mg p.o. daily Symbicort. No antibiotic coverage for now. is also on Lovenox for DVT prophylaxis at a dose of 30 mg subcu on a daily basis. Hemodynamically, the patient is requiring a low-dose norepinephrine for blood pressure support. Echocardiogram done on 08/23/2024 shows mild impairment of LV function with an EF of around 40 to 45% evidence of severe pulmonary hypertension and RV dilatation and estimated pulmonary artery pressures of around 56. Blood work from today shows a white cell count of 10.6, hemoglobin 7.2 and platelet count of 333. The sodium level is sodium is 135 at 135 with a potassium of 5.3, BUN 70 creatinine of 4.34. She is still on NE low dose at 0.04mc/kg/min. Her fluid balance is 1.4 L over the past 24 hours. Her last hemodialysis session was on 08/25/2024 with a total of 1 L of fluid was removed. She is on Vital HP at 30 cc. hr. Residuals are oin 250 cc range On 08/28/2023, the patient is being seen for a follow-up. Remains intubated on mechanical ventilator. Patient remains on propofol running at 45 mcg/kg/min. On today's evaluation, the patient is on assist-control mode with rate of 20, tidal volume of 450, FiO2 of 50% and the PEEP was brought up to 8 as the morning blood gases showed a pH of 7.38 with a pCO2 of 50 and pO2 of 66 and this was an FiO2 of 50%. The chest x-ray findings are essentially unchanged. The patient continues to have perihilar and lower lobe pulmonary infiltrates, patchy, slightly worse on the left and there is also some background cardiomegaly. The patient underwent hemodialysis yesterday. The patient is end-stage renal disease and she is currently on hemodialysis. She remains on norepinephrine which is running at 0.1 mcg/kg/min and the patient remains on vasopressin physiologic dose at 0.03 units. The patient has been having difficulties with atrial fibrillation since yesterday. Cardiology has been involved in the case and the patient was started on Cardizem drip and Cardizem drip is running at 5 mg an hour. Nevertheless, the patient continues to be in A-fib and she remains tachycardic. On a separate note, her hemoglobin is at 6.7. Still awaiting an appropriate manage for the packed RBC transfusion. The rest of the blood work shows a white cell count of 7.9, platelet count of 258, BUN is 48 with a creatinine of 2.8, sodium is at 132, chloride is 94 and a serum bicarb is at 27 at this point. Remains on Decadron 8 mg p.o. daily. Afebrile. Receiving enteral feeding for nutritional support. On 08/29/2024, the patient is being seen for a follow-up. The patient remains intubated on the mechanical ventilator. This morning, the patient is on propofol running at 30 mcg/kg/min. The patient is on mechanical ventilator assist-control mode rate of 20, tidal volume of 450, FiO2 50% with a PEEP of 8. Blood gas from today showed a pH of 7.27 with a pCO2 of 53 and pO2 of 97. CAT scan of the brain was negative. CAT scan of the chest was also completed yesterday and it showed interstitial infiltrates bilaterally consistent with COVID-19 pneumonia. At the same time, the patient had areas of consolidation lung bases left more than right highly suspicious for a bacterial infection. Based on that, the patient was started on a combination of Zosyn and vancomycin. The patient received a unit of packed RBC and the hemoglobin today is at 7.3. The patient remains on low-dose norepinephrine running at 0.08 mcg/kg/min. IV fluids are currently at KVO. Receiving vital high-protein at rate of 40 cc an h our. The patient encountered atrial fibrillation and she is currently back in normal sinus rhythm. She remains on amiodarone at 0.5 mg/min. Last hemodialysis session was on 08/27/2024. The white cell count is at 4.7, hemoglobin 7.3 and a platelet count of 188. Sodium is at 131 with a potassium level of 5.1, BUN is 81 with a creatinine of 3.3. No other significant events overnight. The patient is currently afebrile. Overnight, the patient was having low-grade fever On 08/30/2024, the patient is being seen for a follow-up. The patient remains intubated on the mechanical ventilator. This morning, the patient is on propofol running at 15 mcg/kg/min. She is on assist-control mode of mechanical ventilation and the patient is on assist-control rate of 20, tidal volume of 450, FiO2 50% with a PEEP of 6. Blood gas showed pH of 7.26 with a pCO2 of 57 and pO2 of 78. Chest x-ray shows stable, probably slightly improved perihilar and lower lobe pulmonary filtration as the patient is currently on a combination of Zosyn and vancomycin. The patient is also to undergo hemodialysis today. Hemodynamically, the patient is in normal sinus rhythm. The patient is on no pressors. The patient is dealing vital high-protein at rate of 40 cc an hour. Blood work from today shows a white cell count of 3.7 with a hemoglobin 8.2 and a platelet count of 143. The sodium is at 130, potassium is at 5.9 with a chloride of 93 and a bicarb of 19. BUN is 119 with a potassium level of 3.8. The patient remains on Decadron. Rest of the medications are essentially unchanged. The patient was given a sedation holiday yesterday and the patient was able to arouse and follows some simple commands. Not ready for extubation yet. Hemoglobin has been stable. No signs of any bleeding. 08/31/2024, the patient is being seen for a follow-up. The patient remains on propofol running at 25 mcg/kg/min. Breathing seems to be labile and the patient continues to have a high minute ventilation of around 16 to 17 L/min. She remains on assist-control mode of mechanical ventilation at rate of 20, tidal vo lume of 500, FiO2 50% with a PEEP of 6. Blood gas showed a pH of 7.37 with a pCO2 of 45 and pO2 of 74. The chest x-ray findings are stable and the patient stable bilateral pulmonary filtrates. The patient underwent hemodialysis yesterday and a total of 650 cc of fluid was removed. Postdialysis, the patient was placed on norepinephrine which is currently running at 0.06 mcg/kg/min. The patient is in a normal sinus rhythm and she converted as of 3 AM this morning. She is on vital high-protein at rate of 40 cc an hour. Afebrile for now. White cell count is down to 1.7 with a hemoglobin 7.7 and a platelet count of 106. Sodium is at 133, potassium is at 4.7, bicarb is 25 with a BUN of 19 and creatinine of 2.6. Vancomycin trough level was 18. On 09/01/2024, the patient is being seen for a follow-up. Calm and comfortable, remains on propofol at 20 mcg/kg/min. This morning, her breathing is less labored and her minute ventilation is down to 12. She is on a pressure control mode of mechanical ventilation at rate of 20, pressure control of 20, I, 0.8, FiO2 of 50% with a PEEP of 6. Chest x-ray findings are unchanged. The patient is to undergo another session of hemodialysis today. Blood gas from today shows a pH of 7.39 with a pCO2 of 39 and pO2 of 101. Cardiac rhythm is sinus and the patient remains on a combination of oral amiodarone and metoprolol. The patient remains on vital high-protein at rate of 40 cc an hour. No pressors for now. The white cell count of 2.2 renal cell 0.5 and a platelet count of 92. Sodium is 134, BUN is 117 and a creatinine of 3.37. Potassium level is at 5.1. Serum bicarb is at 18. Remains on Zosyn and vancomycin. Sputum cultures have been negative. Blood cultures been negative. Remains on Lovenox 30 mg subcu for DVT prophylaxis. Remains on Decadron 8 mg p.o. on a daily basis. On 09/02/2024, the patient is being seen for a follow-up. The patient remains on propofol running at 30 mcg/kg/min. Calm and comfortable on pressure control mode of mechanical ventilation at rate of 20, pressure control of 20, FiO2 50% with a PEEP of 5. Blood gas showed a pH of 7.37 with a pCO2 of 34 and pO2 of 103. Chest x-ray findings are stable. Remains on low-dose norepinephrine running at 0.1 mcg/kg/min. Hemodialysis performed yesterday a total of 650 cc of fluid was removed. She is in A-fib/flutter and the patient remains on oral amiodarone 400 mg p.o. twice a day and metoprolol 25 mg p.o. twice a day. She remains on Lovenox 30 mg subcu for DVT prophylaxis. She remains on Decadron. The blood work from today shows a white cell count of 1.8 with a hemoglobin of 7.5 and a platelet count of 77. Platelet counts are stable. BUN is 84 with a creatinine of 2.3 and a sodium levels at 132. Vancomycin level is at 17. Patient was evaluated today in the ICU on 09/03/2024 remains intubated and mechanically ventilated, she is on pressure control mode of mechanical ventilation with PI of 20, DI 0.8, rate 14 FiO2 40% and PEEP of 5 ABG showed a pO2 of 75 pCO2 37 pH of 7.38 hence no changes were made in vent settings. Patient requiring norepinephrine at 0.1 mcg/kg/min also on propofol 30 mcg/kg/min Cardizem 5 mg/h she is receiving vital HP at 40 cc/h IV fluid at KVO remains on Zosyn, and she is on hemodialysis today, when I saw the patient she was actually receiving hemodialysis the plan is to remove 1 L. Patient had COV ID over 10 days ago, and she is out of precautions. Her peak airway pressures 26 Plateau pressure is 19. Chest x-ray continues to show multifocal airspace opacities. WBC count is 2.3 hemoglobin is 7 electrolytes are normal BUN is 113 creatinine 2.96 Patient seen today on 09/04 2024 patient, patient remains intubated and mechanically ventilated, he is on pressure control mode of mechanical venti lation with pressure control of 20 rate 18 TI 0.8 FiO2 40% and PEEP of 5 ABG showed a pO2 of 73 pCO2 39 pH of 7.37 hence no adjustments were made on the ventilator settings. Patient is still requiring norepinephrine at 0.1 mcg/kg/min propofol 25 mcg/kg/min she briefly she was on vasopressin last night which is now off, patient had episodes of bradycardia radiating down to 40 heart rate, and cardiology stopped her Cardizem. She will be given metoprolol and amiodarone as per cardiology on the case. Patient had a PICC line placed today, patient is on Decadron and I cut it down to 4 mg daily remains on Lovenox for DVT prophylaxis remains on GI prophylaxis. Patient is awake, opens her eyes, b ut does not seem to track or follow any instructions. Hence I plan to cut down the propofol further and continue to assess mental status on a daily basis. Obviously considering her mental status, she is not ready to be weaned or extubated. Chest x-ray continues to show multiple opacities in both lungs left more so than right WBC count today is low at 1.4 hemoglobin 6.4, patient will be transfused with at least 1 unit of packed RBCs for a hemoglobin of 6.4 Patient was reevaluated today on 09/05/2024, remains in the ICU, intubated and mechanically ventilated, she is on a pressure control mode of mechanical ventilation, pressure control of 20 rate of 18 TI 0.8 FiO2 40% and PEEP of 5 ABG is marginal with a pO2 of 68 pCO2 34 pH of 7.45. Patient is still requiring hemodialysis she is also requiring norepinephrine at 0.14 mcg/kg/min propofol at 10 mcg/kg/min receiving vital HP at 55/55 patient had a drop in her hemoglobin today down to 6 and she is receiving a unit of packed RBCs may require even more. WBC count is 1.6 hemoglobin 6 platelets are 70,000. Antibiotics whitley she is on acyclovir, vancomycin and Zosyn patient is requiring hemodialysis today. Neurologically the patient is about the same, she opens her eyes, does not track, does not follow any instructions, hence will consider discontinuing propofol or cutting the dose further down to fully assess mental status off sed ation completely. Chest x-ray continues to show COPD, and multifocal infiltrates left more so than right. Last sputum culture from 09/01 was nondiagnostic she had at 1 point positive blood cultures for Staph epidermidis blood cultures remain negative all along. Patient was seen today on 09/06/2024, patient remains in the ICU, intubated and mechanically ventilated. Remains on pressure control mode of mechanical ventilation, pressure control of 20 inspiratory time of 0.8 rate normal 18, FiO2 40% and PEEP of 5 ABG is marginal with a pO2 of 65 pCO2 of 35 pH of 7.45 FiO2 was increased from 40% to 45%. Otherwise no changes were made in her vent settings. Patient is still requiring norepinephrine for low blood pressure she is on norepinephrine at 0.09 mcg/kg/min propofol has been on hold since yesterday IV fluid at KVO vital AF at 55 cc/h remains on Zosyn Decadron and Lovenox. Patient continues to have poor mental status, she opens her eyes but does not follow any instructions according to the nurse yesterday she had 1 episode when she was following simple instructions intermittently, patient received a dose of Dilaudid today, and now she is unable to follow any instructions. Continues to have leukopenia with WBC of 1.2 hemoglobin is 7 patient received a unit of packed RBCs yesterday. Basic metabolic profile is relatively normal bicarb is normal BUN is 73 creatinine 2.09 intermittently receiving dialysis. Antibiotics and antiviral whitley, patient remains on acyclovir, remains on Zosyn, off vancomycin. Chest x-ray continues to show similar multifocal airspace opacities left more so than right. Patient was seen today on 09/07/2023, remains in the ICU, intubated and mechani serenity ventilated, patient remains on pressure mode of mechanical ventilation/pressure control with pressure control of 20 TI 0.8 FiO2 45% PEEP of 5 and rate 18. ABG is marginal with a pO2 of 66 pCO2 35 pH of 7.31, patient was placed on pressure support mode of mechanical ventilation with pressure support of 10 and CPAP, noted bicarb to be low, hence the patient was given an amp of bicarb. Patient is still requiring norepinephrine at 0.07 mcg/kg/min propofol has been on hold for the last 2 days patient will receive a unit of packed RBCs for low hemoglobin patient is on hemodialysis today, and she is still receiving Zosyn. Mentation whitley is about the same, patient opens eyes but does not follow any instructions and obviously she is not quite ready for weaning chest x-ray continues show bilateral patchy infiltrates. Because of her mental status, will continue to hold sedation, and again I have no plans to wean or extubate this patient at this point yet. WBC count is 1.1 hemoglobin 6.7 a unit of packed RBCs will be given electrolytes are normal bicarb is 21 anion gap is 14 BUN is 106 creatinine 2.54 patient is on dialysis today. Objective - Vital Signs Vital signs: Vital Signs Temp 97.0 F L 09/07/24 12:00 Pulse 82 09/07/24 13:00 Resp 22 09/07/24 13:00 BP 87/57 09/07/24 13:00 Pulse Ox 92 L 09/07/24 13:00 FiO2 45 09/07/24 12:00 Intake & Output 09/06/24 09/07/24 09/07/24 18:59 06:59 18:59 Intake Total 1411.414 821.243 835.678 Output Total 385 300 265 Balance 1026.414 521.243 570.678 Weight 69.2 kg 69.2 kg Intake: IV 399 253 161 .9NS KVO 260 220 140 .9NS Pressure Bag 39 33 21 Piperacillin-Tazobactam 3 100 .375 gm In Sodium Chloride 0.9% 100 ml @ 25 mls/hr IVPB Q12H EVELYN Rx# :[id number] Intake, IV Titration 147.414 73.243 34.678 Amount Norepinephrine 8 mg In 147.414 73.243 34.678 Sodium Chloride 0.9% 250 ml @ 0.03 MCG/KG/MIN 3. 106 mls/hr IV .Q24H EVELYN Rx#:[id number] Tube Feeding 715 495 330 Blood Product 310 Rc Irr As1 Unit 310 [id number] Other 150 Output: Urine 75 0 65 Stool 300 300 200 Oral Regurgitation 10 Other: Voiding Method Indwelling Catheter Indwelling Catheter Indwelling Catheter ABP, PAP, CO, CI - Last Documented Arterial Blood Pressure 90/49 - Exam GENERAL EXAM: 64-year-old female intubated mechanically ventilated, opens eyes but does not follow any instructions HEAD: Normocephalic. Atraumatic EYES: Normal reaction of pupils, equal size. NOSE: Clear with pink turbinates. THROAT: Endotracheal tube and gastric tube are intact. NECK: No masses, no JVD. CHEST: No chest wall deformity. LUNGS: Crackles at the bases no rhonchi no wheezes CVS: S1 and S2 normal with no audible murmur, regular rhythm. ABDOMEN: Soft nontender no MAG no rebound no guarding SKIN: No rashes CENTRAL NERVOUS SYSTEM: Unchanged neurological status, opens eyes, grimaces to pain, but does not follow any instructions. EXTREMITIES: There is no peripheral edema. No clubbing, no cyanosis. Peripheral pulses are intact. - Labs CBC & Chem 7: 09/07/24 04:30 09/07/24 04:30 Labs: Abnormal Lab Results - Last 24 Hours (Table) 09/04/24 09/06/24 09/07/24 Range/Units 12:10 17:39 00:24 WBC (3.8-10.6) k/uL RBC (3.80-5.40) m/uL Hgb (11.4-16.0) gm/dL Hct (34.0-46.0) % RDW (11.5-15.5) % Plt Count (150-450) k/uL ABG pH (7.35-7.45) ABG pO2 (83-108) mmHg ABG HCO3 (21-25) mmol/L ABG O2 Saturation (94-97) % Hemoglobin (11.4-16.0) gm/dL Sodium (137-145) mmol/L Chloride (98-107) mmol/L Carbon Dioxide (22-30) mmol/L BUN (7-17) mg/dL Creatinine (0.52-1.04) mg/dL Glucose (74-99) mg/dL POC Glucose (mg/dL) 229 H 175 H (70-110) mg/dL Calcium (8.4-10.2) mg/dL Phosphorus (2.5-4.5) mg/dL ALT (4-34) U/L Total Protein (6.3-8.2) g/dL Albumin (3.5-5.0) g/dL Crossmatch See Detail Blood Bank Comment Sent to [facility] A Reference Lab Result See BBK REF Reports A 09/07/24 09/07/24 09/07/24 Range/Units 04:30 04:30 05:15 WBC 1.1 L* (3.8-10.6) k/uL RBC 2.28 L (3.80-5.40) m/uL Hgb 6.7 L* (11.4-16.0) gm/dL Hct 20.1 L (34.0-46.0) % RDW 18.8 H (11.5-15.5) % Plt Count 68 L (150-450) k/uL ABG pH 7.31 L (7.35-7.45) ABG pO2 66 L (83-108) mmHg ABG HCO3 18 L (21-25) mmol/L ABG O2 Saturation 92.7 L (94-97) % Hemoglobin 6.2 L* (11.4-16.0) gm/dL Sodium 131 L (137-145) mmol/L Chloride 96 L (98-107) mmol/L Carbon Dioxide 21 L (22-30) mmol/L BUN 106 H* (7-17) mg/dL Creatinine 2.54 H (0.52-1.04) mg/dL Glucose 135 H (74-99) mg/dL POC Glucose (mg/dL) (70-110) mg/dL Calcium 8.0 L (8.4-10.2) mg/dL Phosphorus 8.2 H (2.5-4.5) mg/dL ALT 39 H (4-34) U/L Total Protein 5.5 L (6.3-8.2) g/dL Albumin 2.2 L (3.5-5.0) g/dL Crossmatch Blood Bank Comment Reference Lab Result 09/07/24 Range/Units 11:41 WBC (3.8-10.6) k/uL RBC (3.80-5.40) m/uL Hgb (11.4-16.0) gm/dL Hct (34.0-46.0) % RDW (11.5-15.5) % Plt Count (150-450) k/uL ABG pH (7.35-7.45) ABG pO2 (83-108) mmHg ABG HCO3 (21-25) mmol/L ABG O2 Saturation (94-97) % Hemoglobin (11.4-16.0) gm/dL Sodium (137-145) mmol/L Chloride (98-107) mmol/L Carbon Dioxide (22-30) mmol/L BUN (7-17) mg/dL Creatinine (0.52-1.04) mg/dL Glucose (74-99) mg/dL POC Glucose (mg/dL) 120 H (70-110) mg/dL Calcium (8.4-10.2) mg/dL Phosphorus (2.5-4.5) mg/dL ALT (4-34) U/L Total Protein (6.3-8.2) g/dL Albumin (3.5-5.0) g/dL Crossmatch Blood Bank Comment Reference Lab Result Microbiology - Last 24 Hours (Table) 09/01/24 13:55 Blood Culture - Final Blood Assessment and Plan Assessment: Impression: Acute hypoxic respiratory failure, multifactorial Acute exacerbation of COPD Acute on chronic systolic congestive heart failure Acute COVID-19 pneumonia, underlying bacterial pneumonia is not entirely ruled out. Hence patient remains on Zosyn empirically Sepsis and septic shock with hypotension secondary to pneumonia History of multiple myeloma has been on Revlimid, patient has chronic pancytopenia Right upper lobe spiculated nodule with positive PET scan needs outpatient workup it is 1.7 cm highly suspicious for bronchogenic carcinoma/adenocarcinoma Tobacco dependence syndrome End-stage renal disease, on hemodialysis Benign essential hypertension Chronic anemia Status post PICC line placement on 09/04/2024 Recommendations: Continue to hold propofol and address mental status and neurological status on a daily basis, neurology was consulted because of her abnormal mental status Continue ventilatory support Continue hemodynamic support Continue hemodialysis Continue amiodarone Continue acyclovir and Zosyn Continue GI and DVT prophylaxis Continue nutritional support/enteral feeding Transfused with 1 unit of packed RBCs for hemoglobin below 7 Continue daily assessment of mental status not much of a change in the last few days Prognosis remains guarded Remains critically ill Critical care time is over 30 minutes Time with Patient: Greater than 30
[2024-09-07 14:55] LABS: ABG Base Excess 2.1 mmol/L; ABG HCO3 27 mmol/L (21-25); ABG Oxygen Saturation 93.2 % (94-97); ABG PCO2 44 mmHg (35-45); ABG PO2 69 mmHg (83-108); ABG TCO2 28 mmol/L (19-24)
[2024-09-07 15:04] LABS: Allen Test Performed? no
--- NOTE | 2024-09-07 17:25 | CT ---
EXAMINATION TYPE: CT brain wo con DATE OF EXAM: 09/07/2024 5:11 PM COMPARISON: 08/28/2024. CLINICAL INDICATION: Female, 64 years old with history of continued altered mental status, Continued AMS. TECHNIQUE: Brain: Axial CT images of the brain were obtained with coronal and sagittal reformats created and rev iewed. Contrast used: None. Oral contrast used: None. CT DLP: 1096.4 mGycm, Automated exposure control for dose reduction was used. FINDINGS: Brain: Extra-axial spaces: No abnormal extra-axial fluid collections. Ventricular system: Within normal limits Cerebral parenchyma: No acute intraparenchymal hemorrhage or mass effect. The muñoz-white junction is well differentiated. Cerebellum: Unremarkable. Mass effect: No evidence of midline shift. Intracranial vasculature: unremarkable Soft tissues: Normal. Calvarium/osseous structures: No depressed skull fracture. Paranasal sinuses and mastoid air cells: Mild scattered paranasal sinus disease. Visualized orbits: Orbital contents are intact. IMPRESSION: No acute intracranial process. [facility], , 09/07/2024 5:23 PM
[2024-09-07 18:24] LABS: Glucose,Whole Blood 228 mg/dL (70-110)
[2024-09-07] MEDS: SODIUM BICARBONATE TAB 650 MG TAB PO SCH (21:28)
[2024-09-07 23:32] LABS: Glucose,Whole Blood 177 mg/dL (70-110)
[2024-09-08 03:32] LABS: Anisocytosis Slight; HCT 22.9 % (34.0-46.0); HGB 7.5 gm/dL (11.4-16.0); Hypochromasia Slight; MCHC 32.9 g/dL (31.0-37.0); Mean Platelet Volume 12.6; Poikilocytosis Slight; RBC 2.61 m/uL (3.80-5.40); RDW 18.6 % (11.5-15.5)
[2024-09-08 03:37] LABS: Platelet Count 55 k/uL (150-450); WBC 1.2 k/uL (3.8-10.6)
[2024-09-08 03:48] LABS: ALT 49 U/L (4-34); AST 22 U/L (14-36); African American GFR (CKD) 35 (>60 ml/min/1.73 sqM); Albumin 2.3 g/dL (3.5-5.0); Alkaline Phosphatase 75 U/L (38-126); Anion Gap 11 mmol/L; Blood Urea Nitrogen 82 mg/dL (7-17); Calcium 7.8 mg/dL (8.4-10.2); Carbon Dioxide 24 mmol/L (22-30); Chloride 97 mmol/L (98-107); Glucose 153 mg/dL (74-99); Magnesium 1.7 mg/dL (1.6-2.3); Non-African American GFR(CKD) 31 (>60 ml/min/1.73 sqM); Potassium 4.7 mmol/L (3.5-5.1); Sodium 132 mmol/L (137-145); Total Bilirubin 0.8 mg/dL (0.2-1.3); Total Protein 5.6 g/dL (6.3-8.2)
[2024-09-08 05:39] LABS: ABG HCO3 24 mmol/L (21-25); ABG Oxygen Saturation 93.4 % (94-97); ABG PCO2 43 mmHg (35-45); ABG PH 7.36 (7.35-7.45); ABG PO2 70 mmHg (83-108); ABG TCO2 26 mmol/L (19-24); Allen Test Performed? Yes
[2024-09-08 05:41] LABS: Glucose,Whole Blood 169 mg/dL (70-110)
[2024-09-08] MEDS: MAGNESIUM SULFATE-D5W PMX 1 GM in DEXTROSE/WATER 1 100ML.BAG IVPB ONE (09:45)
--- NOTE | 2024-09-08 09:46 | P.PN ---
Subjective Patient is seen in follow-up for end-stage renal disease. She is maintained on hemodialysis on Tuesday schedule. Tolerated 1.3 L u ltrafiltration yesterday. Hemoglobin better postinfusion. On Levophed. Receiving tube feeds. Vital signs are stable. On Levophed. General: Resting in bed. HEENT: Intubated. LUNGS: Scattered rhonchi. HEART: Rate and Rhythm are regular. ABDOMEN: No distention. EXTREMITITES: 2+ edema. Objective - Vital Signs Vital signs: Vital Signs Temp 98.2 F 09/08/24 08:00 Pulse 114 H 09/08/24 08:00 Resp 22 09/08/24 08:00 BP 124/77 09/08/24 08:00 Pulse Ox 92 L 09/08/24 08:00 FiO2 50 09/08/24 08:09 Intake & Output 09/07/24 09/08/24 09/08/24 18:59 06:59 18:59 Intake Total 1406.361 245.088 179.346 Output Total 2974 30 0 Balance -1567.639 215.088 179.346 Weight 69.2 kg 73.1 kg Intake: IV 276 243 43 .9NS KVO 240 240 40 .9NS Pressure Bag 36 3 3 Intake, IV Titration 135.361 2.088 96.346 Amount Norepinephrine 8 mg In 135.361 2.088 96.346 Sodium Chloride 0.9% 250 ml @ 0.03 MCG/KG/MIN 3. 106 mls/hr IV .Q24H [facility] Rx#:[id number] Tube Feeding 385 10 Blood Product 310 Rc Irr As1 Unit 310 [id number] Hemodialysis 300 Other 30 Output: Urine 74 30 0 Hemodialysis 1600 Hemodialysis Net Amount 1300 Other: Voiding Method Indwelling Catheter Indwelling Catheter Indwelling Catheter ABP, PAP, CO, CI - Last Documented Arterial Blood Pressure 120/68 - Labs CBC & Chem 7: 09/08/24 03:15 09/08/24 03:15 Labs: Abnormal Lab Results - Last 24 Hours (Table) 09/04/24 09/07/24 09/07/24 Range/Units 12:10 06:00 11:41 WBC (3.8-10.6) k/uL RBC (3.80-5.40) m/uL Hgb (11.4-16.0) gm/dL Hct (34.0-46.0) % RDW (11.5-15.5) % Plt Count (150-450) k/uL ABG pO2 (83-108) mmHg ABG HCO3 (21-25) mmol/L ABG Total CO2 (19-24) mmol/L ABG O2 Saturation (94-97) % Hemoglobin (11.4-16.0) gm/dL Sodium (137-145) mmol/L Chloride (98-107) mmol/L BUN (7-17) mg/dL Creatinine (0.52-1.04) mg/dL Glucose (74-99) mg/dL POC Glucose (mg/dL) 120 H (70-110) mg/dL Calcium (8.4-10.2) mg/dL ALT (4-34) U/L Total Protein (6.3-8.2) g/dL Albumin (3.5-5.0) g/dL Vitamin B12 1292.0 H (200.0-944.0) pg/mL Crossmatch See Detail Blood Bank Comment 09/07/24 09/07/24 09/07/24 Range/Units 13:40 14:45 18:23 WBC (3.8-10.6) k/uL RBC (3.80-5.40) m/uL Hgb (11.4-16.0) gm/dL Hct (34.0-46.0) % RDW (11.5-15.5) % Plt Count (150-450) k/uL ABG pO2 69 L (83-108) mmHg ABG HCO3 27 H (21-25) mmol/L ABG Total CO2 28 H (19-24) mmol/L ABG O2 Saturation 93.2 L (94-97) % Hemoglobin 8.0 L (11.4-16.0) gm/dL Sodium (137-145) mmol/L Chloride (98-107) mmol/L BUN (7-17) mg/dL Creatinine (0.52-1.04) mg/dL Glucose (74-99) mg/dL POC Glucose (mg/dL) 228 H (70-110) mg/dL Calcium (8.4-10.2) mg/dL ALT (4-34) U/L Total Protein (6.3-8.2) g/dL Albumin (3.5-5.0) g/dL Vitamin B12 (200.0-944.0) pg/mL Crossmatch Blood Bank Comment Sent to [facility] A 09/07/24 09/08/24 09/08/24 Range/Units 23:31 03:15 03:15 WBC 1.2 L* (3.8-10.6) k/uL RBC 2.61 L (3.80-5.40) m/uL Hgb 7.5 L (11.4-16.0) gm/dL Hct 22.9 L (34.0-46.0) % RDW 18.6 H (11.5-15.5) % Plt Count 55 L (150-450) k/uL ABG pO2 (83-108) mmHg ABG HCO3 (21-25) mmol/L ABG Total CO2 (19-24) mmol/L ABG O2 Saturation (94-97) % Hemoglobin (11.4-16.0) gm/dL Sodium 132 L (137-145) mmol/L Chloride 97 L (98-107) mmol/L BUN 82 H (7-17) mg/dL Creatinine 1.72 H (0.52-1.04) mg/dL Glucose 153 H (74-99) mg/dL POC Glucose (mg/dL) 177 H (70-110) mg/dL Calcium 7.8 L (8.4-10.2) mg/dL ALT 49 H (4-34) U/L Total Protein 5.6 L (6.3-8.2) g/dL Albumin 2.3 L (3.5-5.0) g/dL Vitamin B12 (200.0-944.0) pg/mL Crossmatch Blood Bank Comment 09/08/24 09/08/24 Range/Units 05:36 05:38 WBC (3.8-10.6) k/uL RBC (3.80-5.40) m/uL Hgb (11.4-16.0) gm/dL Hct (34.0-46.0) % RDW (11.5-15.5) % Plt Count (150-450) k/uL ABG pO2 70 L (83-108) mmHg ABG HCO3 (21-25) mmol/L ABG Total CO2 26 H (19-24) mmol/L ABG O2 Saturation 93.4 L (94-97) % Hemoglobin 7.6 L (11.4-16.0) gm/dL Sodium (137-145) mmol/L Chloride (98-107) mmol/L BUN (7-17) mg/dL Creatinine (0.52-1.04) mg/dL Glucose (74-99) mg/dL POC Glucose (mg/dL) 169 H (70-110) mg/dL Calcium (8.4-10.2) mg/dL ALT (4-34) U/L Total Protein (6.3-8.2) g/dL Albumin (3.5-5.0) g/dL Vitamin B12 (200.0-944.0) pg/mL Crossmatch Blood Bank Comment Assessment and Plan Plan: Assessment: 1. End-stage renal disease maintained on hemodialysis on Tuesday schedule via permacath. 2. Acute COVID-19 infection. 3. Acute hypoxic respiratory failure. 4. A-fib with RVR being followed by cardiology. 5. Staph epi bacteremia. Possibly contamination. Repeat cultures have been n egative. 6. Right leg pain. Questionable groin mass versus enlarged lymph node versus joint effusion. Possible MRI to further evaluate down the road. 7. Multiple myeloma. Also noted to have pulmonary nodule. Oncology following. Treatment currently on hold due to acute infection. 8. Anemia of chronic kidney disease and also component of underlying multiple myeloma. Status post IV DDAVP and blood transfusions this admission. 9. Volume overload. 10. Hyperkalemia secondary to chronic kidney disease. Questionable GI bleed. Improved. 11. Chronic kidney disease mineral bone disease. Phosphorus level 7.9 dated September 03, 2024. On PhosLo. Plan: Another hemodialysis treatment today mostly for ultrafiltration. Maintain tube feeds. Wean FiO2 and Levophed. Challenge ultrafiltration as able to tolerate. Prognosis guarded.
--- NOTE | 2024-09-08 09:56 | XR ---
EXAMINATION TYPE: XR chest 1V portable DATE OF EXAM: 09/08/2024 9:43 AM COMPARISON: Chest radiographs from 09/07/2024 CLINICAL INDICATION: Female, 64 years old with history of mechanical ventilation; TECHNIQUE: XR chest 1V portable Frontal view of the chest. FINDINGS: Lungs/Pleura: Multifocal airspace opacities. No evidence of pneumothorax or pleural effusion. Pulmonary vascularity: Unremarkable. Heart/mediastinum: Cardiac size is normal. Musculoskeletal: No acute osseous pathology. Other findings: None Lines/Tubes6 Endotracheal tube with distal tip 7.2 cm above the danilo. Nasogastric tube with its distal tip and side-port projecting under the diaphragm. Right internal jugular central venous catheter with distal tip at the cavoatrial junction. Right-sided PICC line with distal tip at the cavoatrial junction. IMPRESSION: 1. Similar multifocal airspace opacities. 2. Stable support lines and tubes.. [facility], , 09/08/2024 9:54 AM
--- NOTE | 2024-09-08 10:12 | P.PN ---
Subjective Progress Note Date: 09/08/24 The patient is a 64-year-old female who is seen in neurologic follow-up on September 08, 2024, in coverage for Dr. Wells, in collaboration with Dary Jiménez, via teleneurology. According to the patient's nurse, propofol was restarted because of "work of breathing" of the patient. Propofol had been on hold since 05 September. Patient reportedly did not follow commands. There is no visual tracking. CT scan of the brain was performed. There is no reported evidence of acute hemorrhage or infarct. The patient's chart has been reviewed. Objective - Vital Signs Vital signs: Vital Signs Temp 98.2 F 09/08/24 08:00 Pulse 114 H 09/08/24 08:00 Resp 22 09/08/24 08:00 BP 124/77 09/08/24 08:00 Pulse Ox 92 L 09/08/24 08:00 FiO2 50 09/08/24 08:09 Intake & Output 09/07/24 09/08/24 09/08/24 18:59 06:59 18:59 Intake Total 1406.361 245.088 179.346 Output Total 2974 30 0 Balance -1567.639 215.088 179.346 Weight 69.2 kg 73.1 kg Intake: IV 276 243 43 .9NS KVO 240 240 40 .9NS Pressure Bag 36 3 3 Intake, IV Titration 135.361 2.088 96.346 Amount Norepinephrine 8 mg In 135.361 2.088 96.346 Sodium Chloride 0.9% 250 ml @ 0.03 MCG/KG/MIN 3. 106 mls/hr IV .Q24H [facility] Rx#:[id number] Tube Feeding 385 10 Blood Product 310 Rc Irr As1 Unit 310 [id number] Hemodialysis 300 Other 30 Output: Urine 74 30 0 Hemodialysis 1600 Hemodialysis Net Amount 1300 Other: Voiding Method Indwelling Catheter Indwelling Catheter Indwelling Catheter ABP, PAP, CO, CI - Last Documented Arterial Blood Pressure 120/68 - Exam Vital signs: Blood pressure 90/51. Heart rate 105. O2 sat 98%. General: The patient is supine in the bed. She is intubated. She is receiving 10 mics of propofol. She is in no acute distress. HEENT: Head is atraumatic, normocephalic. Fundus not visualized. There is no scleral icterus. Mucous membranes are moist. Lungs: The patient is assisting the respirator Neurological examination Mental status: The patient does open her eyes when her name is called. There is no visual tracking. The patient follows no commands. There are no spontaneous movements. Cranial nerves: Pupils are unable, left pupil 4 mm and reactive. Right pupil 3 mm and reactive. There is no obvious facial asymmetry, as best can be determined with the ET tube in place. Corneal reflexes are intact. The patient does cough in response to deep suctioning. Motor: Formal strength testing cannot be carried out. There are no spontaneous movements. Sensation: There is no withdrawal of extremities from noxious stimulation. There is no grimace. - Labs CBC & Chem 7: 09/08/24 03:15 09/08/24 03:15 Labs: Abnormal Lab Results - Last 24 Hours (Table) 09/04/24 09/07/24 09/07/24 Range/Units 12:10 06:00 11:41 WBC (3.8-10.6) k/uL RBC (3.80-5.40) m/uL Hgb (11.4-16.0) gm/dL Hct (34.0-46.0) % RDW (11.5-15.5) % Plt Count (150-450) k/uL ABG pO2 (83-108) mmHg ABG HCO3 (21-25) mmol/L ABG Total CO2 (19-24) mmol/L ABG O2 Saturation (94-97) % Hemoglobin (11.4-16.0) gm/dL Sodium (137-145) mmol/L Chloride (98-107) mmol/L BUN (7-17) mg/dL Creatinine (0.52-1.04) mg/dL Glucose (74-99) mg/dL POC Glucose (mg/dL) 120 H (70-110) mg/dL Calcium (8.4-10.2) mg/dL ALT (4-34) U/L Total Protein (6.3-8.2) g/dL Albumin (3.5-5.0) g/dL Vitamin B12 1292.0 H (200.0-944.0) pg/mL Crossmatch See Detail Blood Bank Comment 09/07/24 09/07/24 09/07/24 Range/Units 13:40 14:45 18:23 WBC (3.8-10.6) k/uL RBC (3.80-5.40) m/uL Hgb (11.4-16.0) gm/dL Hct (34.0-46.0) % RDW (11.5-15.5) % Plt Count (150-450) k/uL ABG pO2 69 L (83-108) mmHg ABG HCO3 27 H (21-25) mmol/L ABG Total CO2 28 H (19-24) mmol/L ABG O2 Saturation 93.2 L (94-97) % Hemoglobin 8.0 L (11.4-16.0) gm/dL Sodium (137-145) mmol/L Chloride (98-107) mmol/L BUN (7-17) mg/dL Creatinine (0.52-1.04) mg/dL Glucose (74-99) mg/dL POC Glucose (mg/dL) 228 H (70-110) mg/dL Calcium (8.4-10.2) mg/dL ALT (4-34) U/L Total Protein (6.3-8.2) g/dL Albumin (3.5-5.0) g/dL Vitamin B12 (200.0-944.0) pg/mL Crossmatch Blood Bank [facility] 09/07/24 09/08/24 09/08/24 Range/Units 23:31 03:15 03:15 WBC 1.2 L* (3.8-10.6) k/uL RBC 2.61 L (3.80-5.40) m/uL Hgb 7.5 L (11.4-16.0) gm/dL Hct 22.9 L (34.0-46.0) % RDW 18.6 H (11.5-15.5) % Plt Count 55 L (150-450) k/uL ABG pO2 (83-108) mmHg ABG HCO3 (21-25) mmol/L ABG Total CO2 (19-24) mmol/L ABG O2 Saturation (94-97) % Hemoglobin (11.4-16.0) gm/dL Sodium 132 L (137-145) mmol/L Chloride 97 L (98-107) mmol/L BUN 82 H (7-17) mg/dL Creatinine 1.72 H (0.52-1.04) mg/dL Glucose 153 H (74-99) mg/dL POC Glucose (mg/dL) 177 H (70-110) mg/dL Calcium 7.8 L (8.4-10.2) mg/dL ALT 49 H (4-34) U/L Total Protein 5.6 L (6.3-8.2) g/dL Albumin 2.3 L (3.5-5.0) g/dL Vitamin B12 (200.0-944.0) pg/mL Crossmatch Blood Bank Comment 09/08/24 09/08/24 Range/Units 05:36 05:38 WBC (3.8-10.6) k/uL RBC (3.80-5.40) m/uL Hgb (11.4-16.0) gm/dL Hct (34.0-46.0) % RDW (11.5-15.5) % Plt Count (150-450) k/uL ABG pO2 70 L (83-108) mmHg ABG HCO3 (21-25) mmol/L ABG Total CO2 26 H (19-24) mmol/L ABG O2 Saturation 93.4 L (94-97) % Hemoglobin 7.6 L (11.4-16.0) gm/dL Sodium (137-145) mmol/L Chloride (98-107) mmol/L BUN (7-17) mg/dL Creatinine (0.52-1.04) mg/dL Glucose (74-99) mg/dL POC Glucose (mg/dL) 169 H (70-110) mg/dL Calcium (8.4-10.2) mg/dL ALT (4-34) U/L Total Protein (6.3-8.2) g/dL Albumin (3.5-5.0) g/dL Vitamin B12 (200.0-944.0) pg/mL Crossmatch Blood Bank Comment Assessment and Plan Assessment: Altered mental status due to multifactorial: Toxic metabolic encephalopathy, hypoxic due to acute COVID-19 pneumonia, acute on chronic kidney injury. Initial CT of the head on 08/28/23 is unremarkable for acute process. Acute COVID-19 infection Acute COPD exacerbation Acute hypoxic respiratory failure A-fib with RVR Pancytopenia Right leg pain and there is a concern for mass versus enlarged lymph node versus joint effusion History of multiple myeloma End-stage renal disease on dialysis Right upper lobe suspected nodule with positive PET scan suspicious for bronchogenic carcinoma/adenocarcinoma Tobacco dependence Plan: 1. EEG will be done Tuesday morning at 7 AM 2. Continue medical management per primary team 3. Attempt weaning from propofol again, to further assess mental status 4. Consider hospice or palliative care consultation Care plan was discussed with the patient's nurse Time with Patient: Greater than 30 (35 minutes were spent caring for this patient today including, obtaining a history, examining the patient, reviewing imaging, chart documentation, labs and creating this note)
--- NOTE | 2024-09-08 11:08 | P.PN ---
Subjective Progress Note Date: 09/08/24 Principal diagnosis: Acute hypoxic respiratory failure, multifactorial This is a 63-year-old female patient with a known history of multiple myeloma receiving chemotherapy recently, suspected lung cancer with a PET positive right upper lobe 1.7 cm spiculated nodule, chronic obstructive pulmonary disease, chronic tobacco dependence, hypertension, hypothyroidism, end-stage renal disease receiving hemodialysis. She was admitted here on 08/21/2024 with complaints of right lower extremity pain. Been undergoing evaluation. Today on August 23, 2024 she had rapid response called on her twice for increasing shortness of breath and hypoxemia. She was subsequently transferred to the intensive care unit. She was placed on BiPAP / and 100% FiO2. She continued to do poorly and was subsequently intubated and placed on the mechanical ventilator. Currently on assist-control mode at a rate of 20, tidal volume 350, FiO2 100% and a PEEP of 5. She did undergo a left subclavian triple-lumen catheter placement and a right radial arterial line placement. Chest x-ray revealed satisfactory positions of the lines. Subtle scattered opacities may represent atypical pneumonia. Finding out today she is positive for COVID-19. Arterial blood gases post intubation revealed a PaO2 greater than 420, pCO2 of 60 and a pH of 7.28. FiO2 will be decreased accordingly. White count 8.5. Hemoglobin 8.7. Platelets 404. Sodium 129. Potassium 5.7. Bicarb 24. BUN 57. Creatinine 5.92. Glucose 82. She is sedated on propofol at 15 mcg/kg/min. The patient is seen today August 24, 2024 in follow-up in the intensive care unit. She remains intubated on the mechanical ventilator and assist-control mode at a rate of 20, tidal volume 350, FiO2 50% and a PEEP of 5. Morning blood gases revealed a PaO2 of 99. pCO2 48. pH 7.35. She is still requiring norepinephrine at 7 mcg/min. Cardizem drip at 5 mg an hour. Propofol at 40 mcg/kg/min. Lactated Ringer's at 100 mL/h. She is being nourished with vital HP at 10 mL/h with a goal of 46 mL/h. She remains on Symbicort, albuterol, Decadron. She is on Lovenox for DVT prophylaxis. Protonix for GI prophylaxis. Blood cultures now showing gram-positive cocci in clusters. Sputum culture pending. Vancomycin will be given x 1 until further cultures result. White count 6.6. Hemoglobin 7.0. Platelets 352. Sodium 132. Potassium 4.8. Bicarb 25. BUN 32. Creatinine 3.32. Glucose 108. The patient is seen today August 25, 2024 in follow-up in the intensive care unit. She remains intubated on the mechanical ventilator currently in settings of assist-control mode at a rate of 20, tidal volume 350, FiO2 50% and a PEEP of 5. Morning blood gases revealed a PaO2 of 91. pCO2 of 53 and a pH of 7.28. Chest x-ray reveals chronic and for somatic changes with mild cardiomegaly and patchy bilateral multifocal edema. No significant change. She remains on norepinephrine at 4 mcg/min. Cardizem drip is off. She was having sinus pauses yesterday. She has issues with intermittent atrial flutter. She is sedated on propofol at 40 mcg/kg/min. Lactated Ringer's at KVO. She is being nourished with vital HP at 10 mL/h. He received vancomycin x 1 for Staphylococcus epidermidis blood culture. Sputum culture revealed no growth. White count 12.9. Hemoglobin 7.5. Platelets 423. Sodium 133. Potassium 5.0. Bicarb 21. BUN 58. Creatinine 4.48. Glucose 134. She remains on Symbicort, albuterol, Decadron. Lovenox for DVT prophylaxis. Protonix for GI prophylaxis. The patient is seen today August 26, 2024 in follow-up in the intensive care unit. She remains intubated on mechanical ventilator and assist-control mode with a rate of 20, tidal valve 350, FiO2 50% and a PEEP of 5. Morning blood gases revealed a PaO2 of 90. pCO2 57 and a pH of 7.28. She did receive hemodialysis with 500 mL of fluid removed yesterday. She remains on norepinephrine at 1.7 mcg/min. Propofol at 50 mcg/kg/min. Lactated Ringer's at KVO. Vital HP at 10 mL an hour with a goal of 46 mL/h. She is continued with high residuals. May need Reglan if no improvement. She remains on albuterol, Symbicort, Decadron. Lovenox for DVT prophylaxis. Show chronic and for somatic changes and mild cardiomegaly with small to tiny left pleural effusion and patchy bilateral multifocal edema and/or acute infiltrates. No significant change. Blood culture was positive for Staphylococcus epidermidis. Sputum culture revealed no growth. White count 13.3. Hemoglobin 7.5. Platelets 364. Sodium 133. Potassium 5.1. Bicarb 24. BUN 41. Creatinine 2.91. Glucose 137. Currently in a +250 mL balance. On 08/27/2024, this patient is being seen for a follow-up. The patient remains intubated on the mechanical ventilator due to a combination of COPD and CHF exacerbation and COVID-19 infection. Noted the patient also has history of multiple myeloma receiving treatment on an outpatient basis. The patient has end-stage renal disease on hemodialysis and the patient also has history of hypertension hypothyroidism and during the course of the illness, the patient was also found to have a spiculated 1.7 cm right upper lobe lesion that was PET avid. This morning, the patient remains intubated on the mechanical ventilator. The patient is on assist-control mode at rate of 20, tidal volume of 350, FiO2 50% with a PEEP of 5. The patient remains sedated with propofol at 50 mc. The blood gases from today showed a pH of 7.26 with a pCO2 of 56 and pO2 of 70 and the chest x-ray shows stable perihilar and lower lobe pulmonary infiltrates. ET tube is around 5 cm above the danilo. The patient also has a dialysis permacath port in the right subclavian. Blood culture was positive for coagulase-negative staph and Staph epidermidis on 08/23/2024. Sputum culture was negative. The patient is currently on Decadron 8 mg p.o. daily Symbicort. No antibiotic coverage for now. is also on Lovenox for DVT prophylaxis at a dose of 30 mg subcu on a daily basis. Hemodynamically, the patient is requiring a low-dose norepinephrine for blood pressure support. Echocardiogram done on 08/23/2024 shows mild impairment of LV function with an EF of around 40 to 45% evidence of severe pulmonary hypertension and RV dilatation and estimated pulmonary artery pressures of around 56. Blood work from today shows a white cell count of 10.6, hemoglobin 7.2 and platelet count of 333. The sodium level is sodium is 135 at 135 with a potassium of 5.3, BUN 70 creatinine of 4.34. She is still on NE low dose at 0.04mc/kg/min. Her fluid balance is 1.4 L over the past 24 hours. Her last hemodialysis session was on 08/25/2024 with a total of 1 L of fluid was removed. She is on Vital HP at 30 cc. hr. Residuals are oin 250 cc range On 08/28/2023, the patient is being seen for a follow-up. Remains intubated on mechanical ventilator. Patient remains on propofol running at 45 mcg/kg/min. On today's evaluation, the patient is on assist-control mode with rate of 20, tidal volume of 450, FiO2 of 50% and the PEEP was brought up to 8 as the morning blood gases showed a pH of 7.38 with a pCO2 of 50 and pO2 of 66 and this was an FiO2 of 50%. The chest x-ray findings are essentially unchanged. The patient continues to have perihilar and lower lobe pulmonary infiltrates, patchy, slightly worse on the left and there is also some background cardiomegaly. The patient underwent hemodialysis yesterday. The patient is end-stage renal disease and she is currently on hemodialysis. She remains on norepinephrine which is running at 0.1 mcg/kg/min and the patient remains on vasopressin physiologic dose at 0.03 units. The patient has been having difficulties with atrial fibrillation since yesterday. Cardiology has been involved in the case and the patient was started on Cardizem drip and Cardizem drip is running at 5 mg an hour. Nevertheless, the patient continues to be in A-fib and she remains tachycardic. On a separate note, her hemoglobin is at 6.7. Still awaiting an appropriate manage for the packed RBC transfusion. The rest of the blood work shows a white cell count of 7.9, platelet count of 258, BUN is 48 with a creatinine of 2.8, sodium is at 132, chloride is 94 and a serum bicarb is at 27 at this point. Remains on Decadron 8 mg p.o. daily. Afebrile. Receiving enteral feeding for nutritional support. On 08/29/2024, the patient is being seen for a follow-up. The patient remains intubated on the mechanical ventilator. This morning, the patient is on propofol running at 30 mcg/kg/min. The patient is on mechanical ventilator assist-control mode rate of 20, tidal volume of 450, FiO2 50% with a PEEP of 8. Blood gas from today showed a pH of 7.27 with a pCO2 of 53 and pO2 of 97. CAT scan of the brain was negative. CAT scan of the chest was also completed yesterday and it showed interstitial infiltrates bilaterally consistent with COVID-19 pneumonia. At the same time, the patient had areas of consolidation lung bases left more than right highly suspicious for a bacterial infection. Based on that, the patient was started on a combination of Zosyn and vancomycin. The patient received a unit of packed RBC and the hemoglobin today is at 7.3. The patient remains on low-dose norepinephrine running at 0.08 mcg/kg/min. IV fluids are currently at KVO. Receiving vital high-protein at rate of 40 cc an h our. The patient encountered atrial fibrillation and she is currently back in normal sinus rhythm. She remains on amiodarone at 0.5 mg/min. Last hemodialysis session was on 08/27/2024. The white cell count is at 4.7, hemoglobin 7.3 and a platelet count of 188. Sodium is at 131 with a potassium level of 5.1, BUN is 81 with a creatinine of 3.3. No other significant events overnight. The patient is currently afebrile. Overnight, the patient was having low-grade fever On 08/30/2024, the patient is being seen for a follow-up. The patient remains intubated on the mechanical ventilator. This morning, the patient is on propofol running at 15 mcg/kg/min. She is on assist-control mode of mechanical ventilation and the patient is on assist-control rate of 20, tidal volume of 450, FiO2 50% with a PEEP of 6. Blood gas showed pH of 7.26 with a pCO2 of 57 and pO2 of 78. Chest x-ray shows stable, probably slightly improved perihilar and lower lobe pulmonary filtration as the patient is currently on a combination of Zosyn and vancomycin. The patient is also to undergo hemodialysis today. Hemodynamically, the patient is in normal sinus rhythm. The patient is on no pressors. The patient is dealing vital high-protein at rate of 40 cc an hour. Blood work from today shows a white cell count of 3.7 with a hemoglobin 8.2 and a platelet count of 143. The sodium is at 130, potassium is at 5.9 with a chloride of 93 and a bicarb of 19. BUN is 119 with a potassium level of 3.8. The patient remains on Decadron. Rest of the medications are essentially unchanged. The patient was given a sedation holiday yesterday and the patient was able to arouse and follows some simple commands. Not ready for extubation yet. Hemoglobin has been stable. No signs of any bleeding. 08/31/2024, the patient is being seen for a follow-up. The patient remains on propofol running at 25 mcg/kg/min. Breathing seems to be labile and the patient continues to have a high minute ventilation of around 16 to 17 L/min. She remains on assist-control mode of mechanical ventilation at rate of 20, tidal vo lume of 500, FiO2 50% with a PEEP of 6. Blood gas showed a pH of 7.37 with a pCO2 of 45 and pO2 of 74. The chest x-ray findings are stable and the patient stable bilateral pulmonary filtrates. The patient underwent hemodialysis yesterday and a total of 650 cc of fluid was removed. Postdialysis, the patient was placed on norepinephrine which is currently running at 0.06 mcg/kg/min. The patient is in a normal sinus rhythm and she converted as of 3 AM this morning. She is on vital high-protein at rate of 40 cc an hour. Afebrile for now. White cell count is down to 1.7 with a hemoglobin 7.7 and a platelet count of 106. Sodium is at 133, potassium is at 4.7, bicarb is 25 with a BUN of 19 and creatinine of 2.6. Vancomycin trough level was 18. On 09/01/2024, the patient is being seen for a follow-up. Calm and comfortable, remains on propofol at 20 mcg/kg/min. This morning, her breathing is less labored and her minute ventilation is down to 12. She is on a pressure control mode of mechanical ventilation at rate of 20, pressure control of 20, I, 0.8, FiO2 of 50% with a PEEP of 6. Chest x-ray findings are unchanged. The patient is to undergo another session of hemodialysis today. Blood gas from today shows a pH of 7.39 with a pCO2 of 39 and pO2 of 101. Cardiac rhythm is sinus and the patient remains on a combination of oral amiodarone and metoprolol. The patient remains on vital high-protein at rate of 40 cc an hour. No pressors for now. The white cell count of 2.2 renal cell 0.5 and a platelet count of 92. Sodium is 134, BUN is 117 and a creatinine of 3.37. Potassium level is at 5.1. Serum bicarb is at 18. Remains on Zosyn and vancomycin. Sputum cultures have been negative. Blood cultures been negative. Remains on Lovenox 30 mg subcu for DVT prophylaxis. Remains on Decadron 8 mg p.o. on a daily basis. On 09/02/2024, the patient is being seen for a follow-up. The patient remains on propofol running at 30 mcg/kg/min. Calm and comfortable on pressure control mode of mechanical ventilation at rate of 20, pressure control of 20, FiO2 50% with a PEEP of 5. Blood gas showed a pH of 7.37 with a pCO2 of 34 and pO2 of 103. Chest x-ray findings are stable. Remains on low-dose norepinephrine running at 0.1 mcg/kg/min. Hemodialysis performed yesterday a total of 650 cc of fluid was removed. She is in A-fib/flutter and the patient remains on oral amiodarone 400 mg p.o. twice a day and metoprolol 25 mg p.o. twice a day. She remains on Lovenox 30 mg subcu for DVT prophylaxis. She remains on Decadron. The blood work from today shows a white cell count of 1.8 with a hemoglobin of 7.5 and a platelet count of 77. Platelet counts are stable. BUN is 84 with a creatinine of 2.3 and a sodium levels at 132. Vancomycin level is at 17. Patient was evaluated today in the ICU on 09/03/2024 remains intubated and mechanically ventilated, she is on pressure control mode of mechanical ventilation with PI of 20, DI 0.8, rate 14 FiO2 40% and PEEP of 5 ABG showed a pO2 of 75 pCO2 37 pH of 7.38 hence no changes were made in vent settings. Patient requiring norepinephrine at 0.1 mcg/kg/min also on propofol 30 mcg/kg/min Cardizem 5 mg/h she is receiving vital HP at 40 cc/h IV fluid at KVO remains on Zosyn, and she is on hemodialysis today, when I saw the patient she was actually receiving hemodialysis the plan is to remove 1 L. Patient had COV ID over 10 days ago, and she is out of precautions. Her peak airway pressures 26 Plateau pressure is 19. Chest x-ray continues to show multifocal airspace opacities. WBC count is 2.3 hemoglobin is 7 electrolytes are normal BUN is 113 creatinine 2.96 Patient seen today on 09/04 2024 patient, patient remains intubated and mechanically ventilated, he is on pressure control mode of mechanical venti lation with pressure control of 20 rate 18 TI 0.8 FiO2 40% and PEEP of 5 ABG showed a pO2 of 73 pCO2 39 pH of 7.37 hence no adjustments were made on the ventilator settings. Patient is still requiring norepinephrine at 0.1 mcg/kg/min propofol 25 mcg/kg/min she briefly she was on vasopressin last night which is now off, patient had episodes of bradycardia radiating down to 40 heart rate, and cardiology stopped her Cardizem. She will be given metoprolol and amiodarone as per cardiology on the case. Patient had a PICC line placed today, patient is on Decadron and I cut it down to 4 mg daily remains on Lovenox for DVT prophylaxis remains on GI prophylaxis. Patient is awake, opens her eyes, b ut does not seem to track or follow any instructions. Hence I plan to cut down the propofol further and continue to assess mental status on a daily basis. Obviously considering her mental status, she is not ready to be weaned or extubated. Chest x-ray continues to show multiple opacities in both lungs left more so than right WBC count today is low at 1.4 hemoglobin 6.4, patient will be transfused with at least 1 unit of packed RBCs for a hemoglobin of 6.4 Patient was reevaluated today on 09/05/2024, remains in the ICU, intubated and mechanically ventilated, she is on a pressure control mode of mechanical ventilation, pressure control of 20 rate of 18 TI 0.8 FiO2 40% and PEEP of 5 ABG is marginal with a pO2 of 68 pCO2 34 pH of 7.45. Patient is still requiring hemodialysis she is also requiring norepinephrine at 0.14 mcg/kg/min propofol at 10 mcg/kg/min receiving vital HP at 55/55 patient had a drop in her hemoglobin today down to 6 and she is receiving a unit of packed RBCs may require even more. WBC count is 1.6 hemoglobin 6 platelets are 70,000. Antibiotics whitley she is on acyclovir, vancomycin and Zosyn patient is requiring hemodialysis today. Neurologically the patient is about the same, she opens her eyes, does not track, does not follow any instructions, hence will consider discontinuing propofol or cutting the dose further down to fully assess mental status off sed ation completely. Chest x-ray continues to show COPD, and multifocal infiltrates left more so than right. Last sputum culture from 09/01 was nondiagnostic she had at 1 point positive blood cultures for Staph epidermidis blood cultures remain negative all along. Patient was seen today on 09/06/2024, patient remains in the ICU, intubated and mechanically ventilated. Remains on pressure control mode of mechanical ventilation, pressure control of 20 inspiratory time of 0.8 rate normal 18, FiO2 40% and PEEP of 5 ABG is marginal with a pO2 of 65 pCO2 of 35 pH of 7.45 FiO2 was increased from 40% to 45%. Otherwise no changes were made in her vent settings. Patient is still requiring norepinephrine for low blood pressure she is on norepinephrine at 0.09 mcg/kg/min propofol has been on hold since yesterday IV fluid at KVO vital AF at 55 cc/h remains on Zosyn Decadron and Lovenox. Patient continues to have poor mental status, she opens her eyes but does not follow any instructions according to the nurse yesterday she had 1 episode when she was following simple instructions intermittently, patient received a dose of Dilaudid today, and now she is unable to follow any instructions. Continues to have leukopenia with WBC of 1.2 hemoglobin is 7 patient received a unit of packed RBCs yesterday. Basic metabolic profile is relatively normal bicarb is normal BUN is 73 creatinine 2.09 intermittently receiving dialysis. Antibiotics and antiviral whitley, patient remains on acyclovir, remains on Zosyn, off vancomycin. Chest x-ray continues to show similar multifocal airspace opacities left more so than right. Patient was seen today on 09/07/2024, remains in the ICU, intubated and mechani serenity ventilated, patient remains on pressure mode of mechanical ventilation/pressure control with pressure control of 20 TI 0.8 FiO2 45% PEEP of 5 and rate 18. ABG is marginal with a pO2 of 66 pCO2 35 pH of 7.31, patient was placed on pressure support mode of mechanical ventilation with pressure support of 10 and CPAP, noted bicarb to be low, hence the patient was given an amp of bicarb. Patient is still requiring norepinephrine at 0.07 mcg/kg/min propofol has been on hold for the last 2 days patient will receive a unit of packed RBCs for low hemoglobin patient is on hemodialysis today, and she is still receiving Zosyn. Mentation whitley is about the same, patient opens eyes but does not follow any instructions and obviously she is not quite ready for weaning chest x-ray continues show bilateral patchy infiltrates. Because of her mental status, will continue to hold sedation, and again I have no plans to wean or extubate this patient at this point yet. WBC count is 1.1 hemoglobin 6.7 a unit of packed RBCs will be given electrolytes are normal bicarb is 21 anion gap is 14 BUN is 106 creatinine 2.54 patient is on dialysis today. Patient was seen today on 09/08/2024, patient remains in the ICU remains intubated on mechanically ventilated, patient is on assist-control rate of 24 t idal volume 500 FiO2 50% PEEP of 5 patient seems to be quite tachypneic and does not follow any instructions opens her eyes, seems to be working hard to breathe, adjustments were made on the ventilator with increasing the flow and increasing the rate to override her effort, continued to have tachypnea and almost struggling to breathe. Holding sedation for the last few days does not seem to be helping hence I am recommending that we sedate the patient and I would recommend that she goes back on propofol. From the overall picture, I believe the patient may eventually need tracheostomy and PEG tube placement. She is not going to be an easy wean, and tracheostomy and PEG tube placement will be an appropriate decision unless the family decides to go with comfort care measures. ABG today showed a pO2 of 70 pCO2 43 pH of 7.36. Yesterday patient had almost 6 hours of pressure support and CPAP, she was noted to breathe hard, but maintained adequate saturation and maintained adequate pulmonary status. Again because of her mental status and a bit reluctant to extubate the patient. She will probably develop difficulty with clearing her secretions and will not be able to tolerate extubation. Hence most likely we may be heading towards tracheostomy and PEG tube placement. Neurology saw the patient for her mental status CT of the brain is negative. Continues to have leukopenia with WBC count of 1.2 hemoglobin is 7.5 platelets are also low at 55,000 patient has multiple myeloma ABG as noted earlier basic metabolic profile is normal bicarb is now 24 BUN is 82 creatinine 1.72 I do not believe patient will be dialyzed today. Objective - Vital Signs Vital signs: Vital Signs Temp 98.2 F 09/08/24 08:00 Pulse 98 09/08/24 10:00 Resp 26 H 09/08/24 10:00 BP 87/54 09/08/24 10:00 Pulse Ox 97 09/08/24 10:00 FiO2 50 09/08/24 08:09 Intake & Output 09/07/24 09/08/24 09/08/24 18:59 06:59 18:59 Intake Total 1406.361 245.088 386.643 Output Total 2974 30 0 Balance -1567.639 215.088 386.643 Weight 69.2 kg 73.1 kg Intake: IV 276 243 89 .9NS KVO 240 240 80 .9NS Pressure Bag 36 3 9 Intake, IV Titration 135.361 2.088 102.643 Amount Norepinephrine 8 mg In 135.361 2.088 102.643 Sodium Chloride 0.9% 250 ml @ 0.03 MCG/KG/MIN 3. 106 mls/hr IV .Q24H EVELYN Rx#:[id number] Tube Feeding 385 165 Blood Product 310 Rc Irr As1 Unit 310 [id number] Hemodialysis 300 Other 30 Output: Urine 74 30 0 Hemodialysis 1600 Hemodialysis Net Amount 1300 Other: Voiding Method Indwelling Catheter Indwelling Catheter Indwelling Catheter ABP, PAP, CO, CI - Last Documented Arterial Blood Pressure 82/47 - Exam GENERAL EXAM: 64-year-old female intubated mechanically ventilated, continues to open eyes but noticed not following any instructions HEAD: Normocephalic. Atraumatic EYES: Normal reaction of pupils, equal size. NOSE: Clear with pink turbinates. THROAT: Endotracheal tube and gastric tube are intact. NECK: No masses, no JVD. CHEST: No chest wall deformity. LUNGS: Crackles at the bases no rhonchi no wheezes CVS: S1 and S2 normal with no audible murmur, regular rhythm. ABDOMEN: Soft nontender no MAG no rebound no guarding SKIN: No rashes CENTRAL NERVOUS SYSTEM: Opens eyes does not follow any instructions EXTREMITIES: There is no peripheral edema. No clubbing, no cyanosis. Peripheral pulses are intact. - Labs CBC & Chem 7: 09/08/24 03:15 09/08/24 03:15 Labs: Abnormal Lab Results - Last 24 Hours (Table) 09/04/24 09/07/24 09/07/24 Range/Units 12:10 06:00 11:41 WBC (3.8-10.6) k/uL RBC (3.80-5.40) m/uL Hgb (11.4-16.0) gm/dL Hct (34.0-46.0) % RDW (11.5-15.5) % Plt Count (150-450) k/uL ABG pO2 (83-108) mmHg ABG HCO3 (21-25) mmol/L ABG Total CO2 (19-24) mmol/L ABG O2 Saturation (94-97) % Hemoglobin (11.4-16.0) gm/dL Sodium (137-145) mmol/L Chloride (98-107) mmol/L BUN (7-17) mg/dL Creatinine (0.52-1.04) mg/dL Glucose (74-99) mg/dL POC Glucose (mg/dL) 120 H (70-110) mg/dL Calcium (8.4-10.2) mg/dL ALT (4-34) U/L Total Protein (6.3-8.2) g/dL Albumin (3.5-5.0) g/dL Vitamin B12 1292.0 H (200.0-944.0) pg/mL Crossmatch See Detail Blood Bank Comment 09/07/24 09/07/24 09/07/24 Range/Units 13:40 14:45 18:23 WBC (3.8-10.6) k/uL RBC (3.80-5.40) m/uL Hgb (11.4-16.0) gm/dL Hct (34.0-46.0) % RDW (11.5-15.5) % Plt Count (150-450) k/uL ABG pO2 69 L (83-108) mmHg ABG HCO3 27 H (21-25) mmol/L ABG Total CO2 28 H (19-24) mmol/L ABG O2 Saturation 93.2 L (94-97) % Hemoglobin 8.0 L (11.4-16.0) gm/dL Sodium (137-145) mmol/L Chloride (98-107) mmol/L BUN (7-17) mg/dL Creatinine (0.52-1.04) mg/dL Glucose (74-99) mg/dL POC Glucose (mg/dL) 228 H (70-110) mg/dL Calcium (8.4-10.2) mg/dL ALT (4-34) U/L Total Protein (6.3-8.2) g/dL Albumin (3.5-5.0) g/dL Vitamin B12 (200.0-944.0) pg/mL Crossmatch Blood Bank Comment Sent to [facility] 09/07/24 09/08/24 09/08/24 Range/Units 23:31 03:15 03:15 WBC 1.2 L* (3.8-10.6) k/uL RBC 2.61 L (3.80-5.40) m/uL Hgb 7.5 L (11.4-16.0) gm/dL Hct 22.9 L (34.0-46.0) % RDW 18.6 H (11.5-15.5) % Plt Count 55 L (150-450) k/uL ABG pO2 (83-108) mmHg ABG HCO3 (21-25) mmol/L ABG Total CO2 (19-24) mmol/L ABG O2 Saturation (94-97) % Hemoglobin (11.4-16.0) gm/dL Sodium 132 L (137-145) mmol/L Chloride 97 L (98-107) mmol/L BUN 82 H (7-17) mg/dL Creatinine 1.72 H (0.52-1.04) mg/dL Glucose 153 H (74-99) mg/dL POC Glucose (mg/dL) 177 H (70-110) mg/dL Calcium 7.8 L (8.4-10.2) mg/dL ALT 49 H (4-34) U/L Total Protein 5.6 L (6.3-8.2) g/dL Albumin 2.3 L (3.5-5.0) g/dL Vitamin B12 (200.0-944.0) pg/mL Crossmatch Blood Bank Comment 09/08/24 09/08/24 Range/Units 05:36 05:38 WBC (3.8-10.6) k/uL RBC (3.80-5.40) m/uL Hgb (11.4-16.0) gm/dL Hct (34.0-46.0) % RDW (11.5-15.5) % Plt Count (150-450) k/uL ABG pO2 70 L (83-108) mmHg ABG HCO3 (21-25) mmol/L ABG Total CO2 26 H (19-24) mmol/L ABG O2 Saturation 93.4 L (94-97) % Hemoglobin 7.6 L (11.4-16.0) gm/dL Sodium (137-145) mmol/L Chloride (98-107) mmol/L BUN (7-17) mg/dL Creatinine (0.52-1.04) mg/dL Glucose (74-99) mg/dL POC Glucose (mg/dL) 169 H (70-110) mg/dL Calcium (8.4-10.2) mg/dL ALT (4-34) U/L Total Protein (6.3-8.2) g/dL Albumin (3.5-5.0) g/dL Vitamin B12 (200.0-944.0) pg/mL Crossmatch Blood Bank Comment Assessment and Plan Assessment: Impression: Acute hypoxic respiratory failure, multifactorial Acute exacerbation of COPD Acute on chronic systolic congestive heart failure Acute COVID-19 pneumonia, underlying bacterial pneumonia is not entirely ruled out. Hence patient remains on Zosyn empirically Sepsis and septic shock with hypotension secondary to pneumonia History of multiple myeloma has been on Revlimid, patient has chronic pancytopenia Right upper lobe spiculated nodule with positive PET scan needs outpatient workup it is 1.7 cm highly suspicious for bronchogenic carcinoma/adenocarcinoma Tobacco dependence syndrome End-stage renal disease, on hemodialysis Benign essential hypertension Chronic anemia Status post PICC line placement on 09/04/2024 Recommendations: Continue ventilatory support, adjustment made on her vent settings now she is on assist-control rate of 24 tidal volume 500 FiO2 50% and PEEP of 5 Continue hemodialysis Continue amiodarone Continue acyclovir and Zosyn Continue GI and DVT prophylaxis Continue nutritional support/enteral feeding Transfuse for hemoglobin below 7 Considering the patient remains quite tachypneic, I am recommending a low-dose of propofol again, holding propofol for few days did not make any difference in her overall mental status. Prognosis remains guarded Comes next week I will likely recommend arrangement for tracheostomy and PEG tube placement. Remains critically ill Critical care time is over 30 minutes Time with Patient: Greater than 30
[2024-09-08 11:40] LABS: Glucose,Whole Blood 177 mg/dL (70-110)
--- NOTE | 2024-09-08 14:02 | P.PN ---
Subjective Progress Note Date: 09/08/24 Principal diagnosis: Reason for follow-up is fever Patient is a 64-year-old female with a past medical history significant for COPD hypertension osteoarthritis end-stage renal disease on dialysis to the right subclavian permacatheter since May 2024 initially presented to hospital with right leg pain subsequently did have acute respiratory failure requiring intubation tested positive for COVID-19 starting a fever on 08/28/2024 prompted this consultation on 09/01/2024 On today's visit that is 09/08/2024, patient did have a low-grade fever of 99.1 F at around patient remains to be on the ventilator FiO2 is currently 50% patient is undergoing dialysis and seem to have been tolerating it so far no other changes reported by the nursing staff. Patient white count is 1.2 creatinine is 1.72 Objective - Vital Signs Vital signs: Vital Signs Temp 99.1 F 09/08/24 12:00 Pulse 103 H 09/08/24 12:00 Resp 23 09/08/24 12:00 BP 122/72 09/08/24 12:00 Pulse Ox 94 L 09/08/24 12:00 FiO2 50 09/08/24 12:00 Intake & Output 09/07/24 09/08/24 09/08/24 18:59 06:59 18:59 Intake Total 1406.361 245.088 515.368 Output Total 2974 30 0 Balance -1567.639 215.088 515.368 Weight 69.2 kg 73.1 kg Intake: IV 276 243 112 .9NS KVO 240 240 100 .9NS Pressure Bag 36 3 12 Intake, IV Titration 135.361 2.088 153.368 Amount Norepinephrine 8 mg In 135.361 2.088 153.368 Sodium Chloride 0.9% 250 ml @ 0.03 MCG/KG/MIN 3. 106 mls/hr IV .Q24H [facility] Rx#:[id number] Tube Feeding 385 220 Blood Product 310 Rc Irr As1 Unit 310 [id number] Hemodialysis 300 Other 30 Output: Urine 74 30 0 Hemodialysis 1600 Hemodialysis Net Amount 1300 Other: Voiding Method Indwelling Catheter Indwelling Catheter Indwelling Catheter ABP, PAP, CO, CI - Last Documented Arterial Blood Pressure 125/64 - Exam GENERAL DESCRIPTION: An elderly female intubated on the vent RESPIRATORY SYSTEM: Unlabored breathing , decreased breath sounds at bases HEART: S1 S2 regular rate and rhythm , ABDOMEN: Soft , no tenderness EXTREMITIES: No edema feet - Labs CBC & Chem 7: 09/08/24 03:15 09/08/24 03:15 Labs: Abnormal Lab Results - Last 24 Hours (Table) 09/07/24 09/07/24 09/07/24 Range/Units 06:00 13:40 14:45 WBC (3.8-10.6) k/uL RBC (3.80-5.40) m/uL Hgb (11.4-16.0) gm/dL Hct (34.0-46.0) % RDW (11.5-15.5) % Plt Count (150-450) k/uL ABG pO2 69 L (83-108) mmHg ABG HCO3 27 H (21-25) mmol/L ABG Total CO2 28 H (19-24) mmol/L ABG O2 Saturation 93.2 L (94-97) % Hemoglobin 8.0 L (11.4-16.0) gm/dL Sodium (137-145) mmol/L Chloride (98-107) mmol/L BUN (7-17) mg/dL Creatinine (0.52-1.04) mg/dL Glucose (74-99) mg/dL POC Glucose (mg/dL) (70-110) mg/dL Calcium (8.4-10.2) mg/dL ALT (4-34) U/L Total Protein (6.3-8.2) g/dL Albumin (3.5-5.0) g/dL Vitamin B12 1292.0 H (200.0-944.0) pg/mL Blood Bank Comment Sent to [facility] 09/07/24 09/07/24 09/08/24 Range/Units 18:23 23:31 03:15 WBC 1.2 L* (3.8-10.6) k/uL RBC 2.61 L (3.80-5.40) m/uL Hgb 7.5 L (11.4-16.0) gm/dL Hct 22.9 L (34.0-46.0) % RDW 18.6 H (11.5-15.5) % Plt Count 55 L (150-450) k/uL ABG pO2 (83-108) mmHg ABG HCO3 (21-25) mmol/L ABG Total CO2 (19-24) mmol/L ABG O2 Saturation (94-97) % Hemoglobin (11.4-16.0) gm/dL Sodium (137-145) mmol/L Chloride (98-107) mmol/L BUN (7-17) mg/dL Creatinine (0.52-1.04) mg/dL Glucose (74-99) mg/dL POC Glucose (mg/dL) 228 H 177 H (70-110) mg/dL Calcium (8.4-10.2) mg/dL ALT (4-34) U/L Total Protein (6.3-8.2) g/dL Albumin (3.5-5.0) g/dL Vitamin B12 (200.0-944.0) pg/mL Blood Bank Comment 09/08/24 09/08/24 09/08/24 Range/Units 03:15 05:36 05:38 WBC (3.8-10.6) k/uL RBC (3.80-5.40) m/uL Hgb (11.4-16.0) gm/dL Hct (34.0-46.0) % RDW (11.5-15.5) % Plt Count (150-450) k/uL ABG pO2 70 L (83-108) mmHg ABG HCO3 (21-25) mmol/L ABG Total CO2 26 H (19-24) mmol/L ABG O2 Saturation 93.4 L (94-97) % Hemoglobin 7.6 L (11.4-16.0) gm/dL Sodium 132 L (137-145) mmol/L Chloride 97 L (98-107) mmol/L BUN 82 H (7-17) mg/dL Creatinine 1.72 H (0.52-1.04) mg/dL Glucose 153 H (74-99) mg/dL POC Glucose (mg/dL) 169 H (70-110) mg/dL Calcium 7.8 L (8.4-10.2) mg/dL ALT 49 H (4-34) U/L Total Protein 5.6 L (6.3-8.2) g/dL Albumin 2.3 L (3.5-5.0) g/dL Vitamin B12 (200.0-944.0) pg/mL Blood Bank Comment 09/08/24 Range/Units 11:38 WBC (3.8-10.6) k/uL RBC (3.80-5.40) m/uL Hgb (11.4-16.0) gm/dL Hct (34.0-46.0) % RDW (11.5-15.5) % Plt Count (150-450) k/uL ABG pO2 (83-108) mmHg ABG HCO3 (21-25) mmol/L ABG Total CO2 (19-24) mmol/L ABG O2 Saturation (94-97) % Hemoglobin (11.4-16.0) gm/dL Sodium (137-145) mmol/L Chloride (98-107) mmol/L BUN (7-17) mg/dL Creatinine (0.52-1.04) mg/dL Glucose (74-99) mg/dL POC Glucose (mg/dL) 177 H (70-110) mg/dL Calcium (8.4-10.2) mg/dL ALT (4-34) U/L Total Protein (6.3-8.2) g/dL Albumin (3.5-5.0) g/dL Vitamin B12 (200.0-944.0) pg/mL Blood Bank Comment Assessment and Plan (1) Fever Current Visit: Yes Status: Acute Code(s): R50.9 - FEVER, UNSPECIFIED SNOMED Code(s): 142616249 (2) Leukopenia Current Visit: Yes Status: Acute Code(s): D72.819 - DECREASED WHITE BLOOD CELL COUNT, UNSPECIFIED SNOMED Code(s): 31156253 (3) Sepsis Current Visit: Yes Status: Acute Code(s): A41.9 - SEPSIS, UNSPECIFIED OR GANISM SNOMED Code(s): 13059413 Plan: 1patient with sepsis in this patient who did have fever and leukopenia patient has been in the hospital for more than 10 days before this initial evaluation with initial presentation to hospital with right leg pain subsequently did have acute respiratory failure requiring intubation and admission to ICU on 08/23/2024 patient was afebrile initially started running a fever as of 08/28/2024 2blood culture has been negative positive UA has been negative, sputum culture negative, patient did have elevated procalcitonin 3 patient did have resolution of the fever however the patient continued to have significant leukopenia could be related to Zovirax 4-patient will discontinue Zovirax for now continue Zosyn repeat CBC and a procalcitonin Dictation was produced using [employer] dictation software. please excuse any grammatical, word or spelling errors. Time with Patient: Less than 30
[2024-09-08] MEDS: VASOPRESSIN 20 UNIT in SODIUM CHLORIDE 0.9% 50 ML IV SCH (14:06)
[2024-09-08 17:46] LABS: Glucose,Whole Blood 259 mg/dL (70-110)
--- NOTE | 2024-09-08 19:40 | P.PN ---
Subjective Progress Note Date: 09/08/24 HPI: This lady has history of multiple comorbid conditions including multiple myeloma, end-stage renal disease on hemodialysis, lung nodules possible malignancy. Labs today suggestive white count of 1.2 and platelet count of 64 and patient has probably myelodysplastic syndrome/multiple myeloma. No antico agulation. We are seeing her for atrial fibrillation which is paroxysmal in nature. Today she is in atrial fibrillation rate is fairly well-controlled. She is currently on amiodarone 400 mg and also on oral metoprolol. She is on a ventilator. Atrial fibrillation is a between 90 and 100 today off Cardizem drip. She is on a small dose of Levophed. She has multiple comorbid conditions including COVID infection COPD and lung mass. Today she is in atrial fibrillation rate is slightly fast at about 110 bpm. We will continue oral amiodarone and also increased metoprolol to 50 mg TID daily. Patient is on a small dose of Levophed. Prognosis remains quite poor Progress note 09/08/2024 BP 100/56, heart rate 68 bpm, Labs shows WBC of 1.2, hemoglobin 7.5, BUN of 82, creatinine of 1.72 Maintained on ventilator support, atrial fibrillation on telemetry PHYSICIAL EXAM: Vitals are stable JVD not evident S1-S2 with irregularity rhythm short systolic murmur, ventilator assisted breath sounds abdomen is soft groin was not examined lower extremities reveal diminished pulses. IMPRESSION: 1. Paroxysmal atrial fibrillation. 2. Acute respiratory failure on the ventilator. 3. Anemia requiring blood transfusions not anticoagulated. 4. End-stage renal disease. 5. Lung mass probable malignancy and multiple myeloma as well. 6. Multiple myeloma with leukopenia and thrombocytopenia RECOMMENDATIONS: Patient's blood pressure is somewhat better we can wean off the Levophed if possible continue other supportive care, continue metoprolol to 50 mg 3 times daily. Prognosis remains poor. Objective - Vital Signs Vital signs: Vital Signs Temp 97.8 F 09/08/24 16:00 Pulse 68 09/08/24 19:00 Resp 25 H 09/08/24 19:00 BP 100/56 09/08/24 19:00 Pulse Ox 96 09/08/24 19:00 FiO2 50 09/08/24 16:00 Intake & Output 09/08/24 09/08/24 09/09/24 06:59 18:59 06:59 Intake Total 441.379 7791.387 78 Output Total 30 3070 0 Balance 215.088 -1403.613 78 Weight 73.1 kg Intake: IV 243 273 23 .9NS KVO 240 240 20 .9NS Pressure Bag 3 33 3 Intake, IV Titration 2.088 248.387 Amount Norepinephrine 8 mg In 2.088 227.196 Sodium Chloride 0.9% 250 ml @ 0.03 MCG/KG/MIN 3. 106 mls/hr IV .Q24H [facility] Rx#:[id number] Vasopressin 20 unit In 21.191 Sodium Chloride 0.9% 50 ml @ 0.03 UNITS/MIN 4.59 mls/hr IV .Q11H7M [facility] Rx# :[id number] Tube Feeding 605 55 Hemodialysis 450 Other 90 Output: Urine 30 20 0 Stool 500 Hemodialysis 1500 Hemodialysis Net Amount 1050 Other: Voiding Method Indwelling Catheter Indwelling Catheter ABP, PAP, CO, CI - Last Documented Arterial Blood Pressure 108/53 - Labs CBC & Chem 7: 09/08/24 03:15 09/08/24 03:15 Labs: Abnormal Lab Results - Last 24 Hours (Table) 09/07/24 09/07/24 09/08/24 Range/Units 06:00 23:31 03:15 WBC 1.2 L* (3.8-10.6) k/uL RBC 2.61 L (3.80-5.40) m/uL Hgb 7.5 L (11.4-16.0) gm/dL Hct 22.9 L (34.0-46.0) % RDW 18.6 H (11.5-15.5) % Plt Count 55 L (150-450) k/uL ABG pO2 (83-108) mmHg ABG Total CO2 (19-24) mmol/L ABG O2 Saturation (94-97) % Hemoglobin (11.4-16.0) gm/dL Sodium (137-145) mmol/L Chloride (98-107) mmol/L BUN (7-17) mg/dL Creatinine (0.52-1.04) mg/dL Glucose (74-99) mg/dL POC Glucose (mg/dL) 177 H (70-110) mg/dL Calcium (8.4-10.2) mg/dL ALT (4-34) U/L Total Protein (6.3-8.2) g/dL Albumin (3.5-5.0) g/dL Vitamin B12 1292.0 H (200.0-944.0) pg/mL 09/08/24 09/08/24 09/08/24 Range/Units 03:15 05:36 05:38 WBC (3.8-10.6) k/uL RBC (3.80-5.40) m/uL Hgb (11.4-16.0) gm/dL Hct (34.0-46.0) % RDW (11.5-15.5) % Plt Count (150-450) k/uL ABG pO2 70 L (83-108) mmHg ABG Total CO2 26 H (19-24) mmol/L ABG O2 Saturation 93.4 L (94-97) % Hemoglobin 7.6 L (11.4-16.0) gm/dL Sodium 132 L (137-145) mmol/L Chloride 97 L (98-107) mmol/L BUN 82 H (7-17) mg/dL Creatinine 1.72 H (0.52-1.04) mg/dL Glucose 153 H (74-99) mg/dL POC Glucose (mg/dL) 169 H (70-110) mg/dL Calcium 7.8 L (8.4-10.2) mg/dL ALT 49 H (4-34) U/L Total Protein 5.6 L (6.3-8.2) g/dL Albumin 2.3 L (3.5-5.0) g/dL Vitamin B12 (200.0-944.0) pg/mL 09/08/24 09/08/24 Range/Units 11:38 17:43 WBC (3.8-10.6) k/uL RBC (3.80-5.40) m/uL Hgb (11.4-16.0) gm/dL Hct (34.0-46.0) % RDW (11.5-15.5) % Plt Count (150-450) k/uL ABG pO2 (83-108) mmHg ABG Total CO2 (19-24) mmol/L ABG O2 Saturation (94-97) % Hemoglobin (11.4-16.0) gm/dL Sodium (137-145) mmol/L Chloride (98-107) mmol/L BUN (7-17) mg/dL Creatinine (0.52-1.04) mg/dL Glucose (74-99) mg/dL POC Glucose (mg/dL) 177 H 259 H (70-110) mg/dL Calcium (8.4-10.2) mg/dL ALT (4-34) U/L Total Protein (6.3-8.2) g/dL Albumin (3.5-5.0) g/dL Vitamin B12 (200.0-944.0) pg/mL
[2024-09-08 23:34] LABS: Glucose,Whole Blood 243 mg/dL (70-110)
[2024-09-09 04:17] LABS: Anisocytosis Slight; HCT 20.6 % (34.0-46.0); Hypochromasia Slight; MCH 29.2 pg (25.0-35.0); MCHC 32.9 g/dL (31.0-37.0); MCV 88.7 fL (80.0-100.0); Mean Platelet Volume 11.6; RBC 2.33 m/uL (3.80-5.40); RDW 18.5 % (11.5-15.5)
[2024-09-09 04:26] LABS: HGB 6.8 gm/dL (11.4-16.0); Platelet Count 61 k/uL (150-450); WBC 1.2 k/uL (3.8-10.6)
[2024-09-09 04:28] LABS: ALT 40 U/L (4-34); AST 18 U/L (14-36); African American GFR (CKD) 37 (>60 ml/min/1.73 sqM); Albumin 2.2 g/dL (3.5-5.0); Alkaline Phosphatase 68 U/L (38-126); Anion Gap 12 mmol/L; Blood Urea Nitrogen 85 mg/dL (7-17); Calcium 7.7 mg/dL (8.4-10.2); Carbon Dioxide 23 mmol/L (22-30); Chloride 95 mmol/L (98-107); Glucose 219 mg/dL (74-99); Non-African American GFR(CKD) 32 (>60 ml/min/1.73 sqM); Potassium 4.7 mmol/L (3.5-5.1); Sodium 130 mmol/L (137-145); Total Bilirubin 0.6 mg/dL (0.2-1.3); Total Protein 5.3 g/dL (6.3-8.2)
[2024-09-09 05:39] LABS: Glucose,Whole Blood 231 mg/dL (70-110)
[2024-09-09 05:54] LABS: ABG Base Excess -0.5 mmol/L; ABG HCO3 24 mmol/L (21-25); ABG Oxygen Saturation 96.9 % (94-97); ABG PCO2 39 mmHg (35-45); ABG PO2 84 mmHg (83-108); ABG TCO2 25 mmol/L (19-24)
[2024-09-09 06:09] LABS: Allen Test Performed? No
--- NOTE | 2024-09-09 07:07 | XR ---
EXAMINATION TYPE: XR chest 1V portable DATE OF EXAM: 09/09/2024 4:04 AM COMPARISON: Chest radiograph from one day prior. CLINICAL INDICATION: Female, 64 years old with history of mechanical ventilation; [facility] TECHNIQUE: XR chest 1V portable Frontal view of the chest. FINDINGS: Lungs/Pleura: Multifocal airspace opacities. No evidence of pneumothorax or pleural effusion. Pulmonary vascularity: Unremarkable. Heart/mediastinum: Cardiac size is normal. Musculoskeletal: No acute osseous pathology. Other findings: None Lines/Tubes6 Endotracheal tube with distal tip 6.7cm above the danilo. Nasogastric tube with its distal tip and side-port projecting under the diaphragm. Right internal jugular central venous catheter with distal tip at the cavoatrial junction. Right-sided PICC line with distal tip at the superior vena cava IMPRESSION: 1. Similar multifocal airspace opacities. 2. Stable support lines and tubes.. [facility], , 09/09/2024 7:04 AM
--- NOTE | 2024-09-09 10:24 | P.PN ---
Subjective Patient is seen in follow-up for end-stage renal disease. She is maintained on hemodialysis on Tuesday schedule. Tolerated 1 L ultrafiltration yesterday. Hemoglobin 6.8. Receiving tube feeds. Off Levophed. Vital signs are stable. Blood pressure on the lower end. General: Resting in bed. HEENT: Intubated. LUNGS: Scattered rhonchi. HEART: Rate and Rhythm are regular. ABDOMEN: No distention. EXTREMITITES: 1+ edema. Objective - Vital Signs Vital signs: Vital Signs Temp 98 F 09/09/24 09:45 Pulse 89 09/09/24 09:45 Resp 24 09/09/24 09:45 BP 87/52 09/09/24 09:45 Pulse Ox 95 09/09/24 07:00 FiO2 50 09/09/24 08:00 Intake & Output 09/08/24 09/09/24 09/09/24 18:59 06:59 18:59 Intake Total 0531.793 5159.659 341.799 Output Total 3070 910 10 Balance -1403.613 455.659 331.799 Weight 71.8 kg Intake: IV 273 276 23 .9NS KVO 240 240 20 .9NS Pressure Bag 33 36 3 Intake, IV Titration 248.387 119.659 8.799 Amount Norepinephrine 8 mg In 227.196 68.659 5.815 Sodium Chloride 0.9% 250 ml @ 0.03 MCG/KG/MIN 3. 106 mls/hr IV .Q24H [facility] Rx#:[id number] Vasopressin 20 unit In 21.191 51 2.984 Sodium Chloride 0.9% 50 ml @ 0.03 UNITS/MIN 4.59 mls/hr IV .Q11H7M [facility] Rx# :[id number] Tube Feeding 605 660 Blood Product 310 310 Rc Irr As1 Unit 0 310 [id number] Hemodialysis 450 Other 90 Output: Urine 20 10 10 Stool 500 900 Hemodialysis 1500 Hemodialysis Net Amount 1050 Other: Voiding Method Indwelling Catheter Indwelling Catheter ABP, PAP, CO, CI - Last Documented Arterial Blood Pressure 127/67 - Labs CBC & Chem 7: 09/09/24 03:50 09/09/24 03:50 Labs: Abnormal Lab Results - Last 24 Hours (Table) 09/07/24 09/08/24 09/08/24 Range/Units 13:40 11:38 17:43 WBC (3.8-10.6) k/uL RBC (3.80-5.40) m/uL Hgb (11.4-16.0) gm/dL Hct (34.0-46.0) % RDW (11.5-15.5) % Plt Count (150-450) k/uL ABG Total CO2 (19-24) mmol/L Hemoglobin (11.4-16.0) gm/dL Sodium (137-145) mmol/L Chloride (98-107) mmol/L BUN (7-17) mg/dL Creatinine (0.52-1.04) mg/dL Glucose (74-99) mg/dL POC Glucose (mg/dL) 177 H 259 H (70-110) mg/dL Calcium (8.4-10.2) mg/dL ALT (4-34) U/L Total Protein (6.3-8.2) g/dL Albumin (3.5-5.0) g/dL Crossmatch See Detail Blood Bank Comment Sent to [facility] A 09/08/24 09/09/24 09/09/24 Range/Units 23:32 03:50 03:50 WBC 1.2 L* (3.8-10.6) k/uL RBC 2.33 L (3.80-5.40) m/uL Hgb 6.8 L* (11.4-16.0) gm/dL Hct 20.6 L (34.0-46.0) % RDW 18.5 H (11.5-15.5) % Plt Count 61 L (150-450) k/uL ABG Total CO2 (19-24) mmol/L Hemoglobin (11.4-16.0) gm/dL Sodium 130 L (137-145) mmol/L Chloride 95 L (98-107) mmol/L BUN 85 H (7-17) mg/dL Creatinine 1.66 H (0.52-1.04) mg/dL Glucose 219 H (74-99) mg/dL POC Glucose (mg/dL) 243 H (70-110) mg/dL Calcium 7.7 L (8.4-10.2) mg/dL ALT 40 H (4-34) U/L Total Protein 5.3 L (6.3-8.2) g/dL Albumin 2.2 L (3.5-5.0) g/dL Crossmatch Blood Bank Comment 09/09/24 09/09/24 Range/Units 05:37 05:54 WBC (3.8-10.6) k/uL RBC (3.80-5.40) m/uL Hgb (11.4-16.0) gm/dL Hct (34.0-46.0) % RDW (11.5-15.5) % Plt Count (150-450) k/uL ABG Total CO2 25 H (19-24) mmol/L Hemoglobin 6.5 L* (11.4-16.0) gm/dL Sodium (137-145) mmol/L Chloride (98-107) mmol/L BUN (7-17) mg/dL Creatinine (0.52-1.04) mg/dL Glucose (74-99) mg/dL POC Glucose (mg/dL) 231 H (70-110) mg/dL Calcium (8.4-10.2) mg/dL ALT (4-34) U/L Total Protein (6.3-8.2) g/dL Albumin (3.5-5.0) g/dL Crossmatch Blood Bank Comment Assessment and Plan Plan: Assessment: 1. End-stage renal disease maintained on hemodialysis on Tuesday schedule via permacath. 2. Acute COVID-19 infection. 3. Acute hypoxic respiratory failure. 4. A-fib with RVR being followed by cardiology. 5. Staph epi bacteremia. Possibly contamination. Repeat cultures have been negative. 6. Right leg pain. Questionable groin mass versus enlarged lymph node versus joint effusion. Possible MRI to further evaluate down the road. 7. Multiple myeloma. Also noted to have pulmonary nodule. Oncology following. Treatment currently on hold due to acute infection. 8. Anemia of chronic kidney disease and also component of underlying multiple myeloma. Status post IV DDAVP and blood transfusions this admission. 9. Volume overload. 10. Hyperkalemia secondary to chronic kidney disease. Questionable GI bleed. Improved. 11. Chronic kidney disease mineral bone disease. Phosphorus level 7.9 dated September 03, 2024. On PhosLo. Plan: Hemodialysis tomorrow. Maintain tube feeds. Blood transfusion pending. Challenge ultrafiltration as able to tolerate. Add midodrine. Prognosis guarded.
--- NOTE | 2024-09-09 11:17 | P.PN ---
Subjective Progress Note Date: 09/09/24 Principal diagnosis: Acute hypoxic respiratory failure, multifactorial This is a 63-year-old female patient with a known history of multiple myeloma receiving chemotherapy recently, suspected lung cancer with a PET positive right upper lobe 1.7 cm spiculated nodule, chronic obstructive pulmonary disease, chronic tobacco dependence, hypertension, hypothyroidism, end-stage renal disease receiving hemodialysis. She was admitted here on 08/21/2024 with complaints of right lower extremity pain. Been undergoing evaluation. Today on August 23, 2024 she had rapid response called on her twice for increasing shortness of breath and hypoxemia. She was subsequently transferred to the intensive care unit. She was placed on BiPAP / and 100% FiO2. She continued to do poorly and was subsequently intubated and placed on the mechanical ventilator. Currently on assist-control mode at a rate of 20, tidal volume 350, FiO2 100% and a PEEP of 5. She did undergo a left subclavian triple-lumen catheter placement and a right radial arterial line placement. Chest x-ray revealed satisfactory positions of the lines. Subtle scattered opacities may represent atypical pneumonia. Finding out today she is positive for COVID-19. Arterial blood gases post intubation revealed a PaO2 greater than 420, pCO2 of 60 and a pH of 7.28. FiO2 will be decreased accordingly. White count 8.5. Hemoglobin 8.7. Platelets 404. Sodium 129. Potassium 5.7. Bicarb 24. BUN 57. Creatinine 5.92. Glucose 82. She is sedated on propofol at 15 mcg/kg/min. The patient is seen today August 24, 2024 in follow-up in the intensive care unit. She remains intubated on the mechanical ventilator and assist-control mode at a rate of 20, tidal volume 350, FiO2 50% and a PEEP of 5. Morning blood gases revealed a PaO2 of 99. pCO2 48. pH 7.35. She is still requiring norepinephrine at 7 mcg/min. Cardizem drip at 5 mg an hour. Propofol at 40 mcg/kg/min. Lactated Ringer's at 100 mL/h. She is being nourished with vital HP at 10 mL/h with a goal of 46 mL/h. She remains on Symbicort, albuterol, Decadron. She is on Lovenox for DVT prophylaxis. Protonix for GI prophylaxis. Blood cultures now showing gram-positive cocci in clusters. Sputum culture pending. Vancomycin will be given x 1 until further cultures result. White count 6.6. Hemoglobin 7.0. Platelets 352. Sodium 132. Potassium 4.8. Bicarb 25. BUN 32. Creatinine 3.32. Glucose 108. The patient is seen today August 25, 2024 in follow-up in the intensive care unit. She remains intubated on the mechanical ventilator currently in settings of assist-control mode at a rate of 20, tidal volume 350, FiO2 50% and a PEEP of 5. Morning blood gases revealed a PaO2 of 91. pCO2 of 53 and a pH of 7.28. Chest x-ray reveals chronic and for somatic changes with mild cardiomegaly and patchy bilateral multifocal edema. No significant change. She remains on norepinephrine at 4 mcg/min. Cardizem drip is off. She was having sinus pauses yesterday. She has issues with intermittent atrial flutter. She is sedated on propofol at 40 mcg/kg/min. Lactated Ringer's at KVO. She is being nourished with vital HP at 10 mL/h. He received vancomycin x 1 for Staphylococcus epidermidis blood culture. Sputum culture revealed no growth. White count 12.9. Hemoglobin 7.5. Platelets 423. Sodium 133. Potassium 5.0. Bicarb 21. BUN 58. Creatinine 4.48. Glucose 134. She remains on Symbicort, albuterol, Decadron. Lovenox for DVT prophylaxis. Protonix for GI prophylaxis. The patient is seen today August 26, 2024 in follow-up in the intensive care unit. She remains intubated on mechanical ventilator and assist-control mode with a rate of 20, tidal valve 350, FiO2 50% and a PEEP of 5. Morning blood gases revealed a PaO2 of 90. pCO2 57 and a pH of 7.28. She did receive hemodialysis with 500 mL of fluid removed yesterday. She remains on norepinephrine at 1.7 mcg/min. Propofol at 50 mcg/kg/min. Lactated Ringer's at KVO. Vital HP at 10 mL an hour with a goal of 46 mL/h. She is continued with high residuals. May need Reglan if no improvement. She remains on albuterol, Symbicort, Decadron. Lovenox for DVT prophylaxis. Show chronic and for somatic changes and mild cardiomegaly with small to tiny left pleural effusion and patchy bilateral multifocal edema and/or acute infiltrates. No significant change. Blood culture was positive for Staphylococcus epidermidis. Sputum culture revealed no growth. White count 13.3. Hemoglobin 7.5. Platelets 364. Sodium 133. Potassium 5.1. Bicarb 24. BUN 41. Creatinine 2.91. Glucose 137. Currently in a +250 mL balance. On 08/27/2024, this patient is being seen for a follow-up. The patient remains intubated on the mechanical ventilator due to a combination of COPD and CHF exacerbation and COVID-19 infection. Noted the patient also has history of multiple myeloma receiving treatment on an outpatient basis. The patient has end-stage renal disease on hemodialysis and the patient also has history of hypertension hypothyroidism and during the course of the illness, the patient was also found to have a spiculated 1.7 cm right upper lobe lesion that was PET avid. This morning, the patient remains intubated on the mechanical ventilator. The patient is on assist-control mode at rate of 20, tidal volume of 350, FiO2 50% with a PEEP of 5. The patient remains sedated with propofol at 50 mc. The blood gases from today showed a pH of 7.26 with a pCO2 of 56 and pO2 of 70 and the chest x-ray shows stable perihilar and lower lobe pulmonary infiltrates. ET tube is around 5 cm above the danilo. The patient also has a dialysis permacath port in the right subclavian. Blood culture was positive for coagulase-negative staph and Staph epidermidis on 08/23/2024. Sputum culture was negative. The patient is currently on Decadron 8 mg p.o. daily Symbicort. No antibiotic coverage for now. is also on Lovenox for DVT prophylaxis at a dose of 30 mg subcu on a daily basis. Hemodynamically, the patient is requiring a low-dose norepinephrine for blood pressure support. Echocardiogram done on 08/23/2024 shows mild impairment of LV function with an EF of around 40 to 45% evidence of severe pulmonary hypertension and RV dilatation and estimated pulmonary artery pressures of around 56. Blood work from today shows a white cell count of 10.6, hemoglobin 7.2 and platelet count of 333. The sodium level is sodium is 135 at 135 with a potassium of 5.3, BUN 70 creatinine of 4.34. She is still on NE low dose at 0.04mc/kg/min. Her fluid balance is 1.4 L over the past 24 hours. Her last hemodialysis session was on 08/25/2024 with a total of 1 L of fluid was removed. She is on Vital HP at 30 cc. hr. Residuals are oin 250 cc range On 08/28/2023, the patient is being seen for a follow-up. Remains intubated on mechanical ventilator. Patient remains on propofol running at 45 mcg/kg/min. On today's evaluation, the patient is on assist-control mode with rate of 20, tidal volume of 450, FiO2 of 50% and the PEEP was brought up to 8 as the morning blood gases showed a pH of 7.38 with a pCO2 of 50 and pO2 of 66 and this was an FiO2 of 50%. The chest x-ray findings are essentially unchanged. The patient continues to have perihilar and lower lobe pulmonary infiltrates, patchy, slightly worse on the left and there is also some background cardiomegaly. The patient underwent hemodialysis yesterday. The patient is end-stage renal disease and she is currently on hemodialysis. She remains on norepinephrine which is running at 0.1 mcg/kg/min and the patient remains on vasopressin physiologic dose at 0.03 units. The patient has been having difficulties with atrial fibrillation since yesterday. Cardiology has been involved in the case and the patient was started on Cardizem drip and Cardizem drip is running at 5 mg an hour. Nevertheless, the patient continues to be in A-fib and she remains tachycardic. On a separate note, her hemoglobin is at 6.7. Still awaiting an appropriate manage for the packed RBC transfusion. The rest of the blood work shows a white cell count of 7.9, platelet count of 258, BUN is 48 with a creatinine of 2.8, sodium is at 132, chloride is 94 and a serum bicarb is at 27 at this point. Remains on Decadron 8 mg p.o. daily. Afebrile. Receiving enteral feeding for nutritional support. On 08/29/2024, the patient is being seen for a follow-up. The patient remains intubated on the mechanical ventilator. This morning, the patient is on propofol running at 30 mcg/kg/min. The patient is on mechanical ventilator assist-control mode rate of 20, tidal volume of 450, FiO2 50% with a PEEP of 8. Blood gas from today showed a pH of 7.27 with a pCO2 of 53 and pO2 of 97. CAT scan of the brain was negative. CAT scan of the chest was also completed yesterday and it showed interstitial infiltrates bilaterally consistent with COVID-19 pneumonia. At the same time, the patient had areas of consolidation lung bases left more than right highly suspicious for a bacterial infection. Based on that, the patient was started on a combination of Zosyn and vancomycin. The patient received a unit of packed RBC and the hemoglobin today is at 7.3. The patient remains on low-dose norepinephrine running at 0.08 mcg/kg/min. IV fluids are currently at KVO. Receiving vital high-protein at rate of 40 cc an h our. The patient encountered atrial fibrillation and she is currently back in normal sinus rhythm. She remains on amiodarone at 0.5 mg/min. Last hemodialysis session was on 08/27/2024. The white cell count is at 4.7, hemoglobin 7.3 and a platelet count of 188. Sodium is at 131 with a potassium level of 5.1, BUN is 81 with a creatinine of 3.3. No other significant events overnight. The patient is currently afebrile. Overnight, the patient was having low-grade fever On 08/30/2024, the patient is being seen for a follow-up. The patient remains intubated on the mechanical ventilator. This morning, the patient is on propofol running at 15 mcg/kg/min. She is on assist-control mode of mechanical ventilation and the patient is on assist-control rate of 20, tidal volume of 450, FiO2 50% with a PEEP of 6. Blood gas showed pH of 7.26 with a pCO2 of 57 and pO2 of 78. Chest x-ray shows stable, probably slightly improved perihilar and lower lobe pulmonary filtration as the patient is currently on a combination of Zosyn and vancomycin. The patient is also to undergo hemodialysis today. Hemodynamically, the patient is in normal sinus rhythm. The patient is on no pressors. The patient is dealing vital high-protein at rate of 40 cc an hour. Blood work from today shows a white cell count of 3.7 with a hemoglobin 8.2 and a platelet count of 143. The sodium is at 130, potassium is at 5.9 with a chloride of 93 and a bicarb of 19. BUN is 119 with a potassium level of 3.8. The patient remains on Decadron. Rest of the medications are essentially unchanged. The patient was given a sedation holiday yesterday and the patient was able to arouse and follows some simple commands. Not ready for extubation yet. Hemoglobin has been stable. No signs of any bleeding. 08/31/2024, the patient is being seen for a follow-up. The patient remains on propofol running at 25 mcg/kg/min. Breathing seems to be labile and the patient continues to have a high minute ventilation of around 16 to 17 L/min. She remains on assist-control mode of mechanical ventilation at rate of 20, tidal vo lume of 500, FiO2 50% with a PEEP of 6. Blood gas showed a pH of 7.37 with a pCO2 of 45 and pO2 of 74. The chest x-ray findings are stable and the patient stable bilateral pulmonary filtrates. The patient underwent hemodialysis yesterday and a total of 650 cc of fluid was removed. Postdialysis, the patient was placed on norepinephrine which is currently running at 0.06 mcg/kg/min. The patient is in a normal sinus rhythm and she converted as of 3 AM this morning. She is on vital high-protein at rate of 40 cc an hour. Afebrile for now. White cell count is down to 1.7 with a hemoglobin 7.7 and a platelet count of 106. Sodium is at 133, potassium is at 4.7, bicarb is 25 with a BUN of 19 and creatinine of 2.6. Vancomycin trough level was 18. On 09/01/2024, the patient is being seen for a follow-up. Calm and comfortable, remains on propofol at 20 mcg/kg/min. This morning, her breathing is less labored and her minute ventilation is down to 12. She is on a pressure control mode of mechanical ventilation at rate of 20, pressure control of 20, I, 0.8, FiO2 of 50% with a PEEP of 6. Chest x-ray findings are unchanged. The patient is to undergo another session of hemodialysis today. Blood gas from today shows a pH of 7.39 with a pCO2 of 39 and pO2 of 101. Cardiac rhythm is sinus and the patient remains on a combination of oral amiodarone and metoprolol. The patient remains on vital high-protein at rate of 40 cc an hour. No pressors for now. The white cell count of 2.2 renal cell 0.5 and a platelet count of 92. Sodium is 134, BUN is 117 and a creatinine of 3.37. Potassium level is at 5.1. Serum bicarb is at 18. Remains on Zosyn and vancomycin. Sputum cultures have been negative. Blood cultures been negative. Remains on Lovenox 30 mg subcu for DVT prophylaxis. Remains on Decadron 8 mg p.o. on a daily basis. On 09/02/2024, the patient is being seen for a follow-up. The patient remains on propofol running at 30 mcg/kg/min. Calm and comfortable on pressure control mode of mechanical ventilation at rate of 20, pressure control of 20, FiO2 50% with a PEEP of 5. Blood gas showed a pH of 7.37 with a pCO2 of 34 and pO2 of 103. Chest x-ray findings are stable. Remains on low-dose norepinephrine running at 0.1 mcg/kg/min. Hemodialysis performed yesterday a total of 650 cc of fluid was removed. She is in A-fib/flutter and the patient remains on oral amiodarone 400 mg p.o. twice a day and metoprolol 25 mg p.o. twice a day. She remains on Lovenox 30 mg subcu for DVT prophylaxis. She remains on Decadron. The blood work from today shows a white cell count of 1.8 with a hemoglobin of 7.5 and a platelet count of 77. Platelet counts are stable. BUN is 84 with a creatinine of 2.3 and a sodium levels at 132. Vancomycin level is at 17. Patient was evaluated today in the ICU on 09/03/2024 remains intubated and mechanically ventilated, she is on pressure control mode of mechanical ventilation with PI of 20, DI 0.8, rate 14 FiO2 40% and PEEP of 5 ABG showed a pO2 of 75 pCO2 37 pH of 7.38 hence no changes were made in vent settings. Patient requiring norepinephrine at 0.1 mcg/kg/min also on propofol 30 mcg/kg/min Cardizem 5 mg/h she is receiving vital HP at 40 cc/h IV fluid at KVO remains on Zosyn, and she is on hemodialysis today, when I saw the patient she was actually receiving hemodialysis the plan is to remove 1 L. Patient had COV ID over 10 days ago, and she is out of precautions. Her peak airway pressures 26 Plateau pressure is 19. Chest x-ray continues to show multifocal airspace opacities. WBC count is 2.3 hemoglobin is 7 electrolytes are normal BUN is 113 creatinine 2.96 Patient seen today on 09/04 2024 patient, patient remains intubated and mechanically ventilated, he is on pressure control mode of mechanical venti lation with pressure control of 20 rate 18 TI 0.8 FiO2 40% and PEEP of 5 ABG showed a pO2 of 73 pCO2 39 pH of 7.37 hence no adjustments were made on the ventilator settings. Patient is still requiring norepinephrine at 0.1 mcg/kg/min propofol 25 mcg/kg/min she briefly she was on vasopressin last night which is now off, patient had episodes of bradycardia radiating down to 40 heart rate, and cardiology stopped her Cardizem. She will be given metoprolol and amiodarone as per cardiology on the case. Patient had a PICC line placed today, patient is on Decadron and I cut it down to 4 mg daily remains on Lovenox for DVT prophylaxis remains on GI prophylaxis. Patient is awake, opens her eyes, b ut does not seem to track or follow any instructions. Hence I plan to cut down the propofol further and continue to assess mental status on a daily basis. Obviously considering her mental status, she is not ready to be weaned or extubated. Chest x-ray continues to show multiple opacities in both lungs left more so than right WBC count today is low at 1.4 hemoglobin 6.4, patient will be transfused with at least 1 unit of packed RBCs for a hemoglobin of 6.4 Patient was reevaluated today on 09/05/2024, remains in the ICU, intubated and mechanically ventilated, she is on a pressure control mode of mechanical ventilation, pressure control of 20 rate of 18 TI 0.8 FiO2 40% and PEEP of 5 ABG is marginal with a pO2 of 68 pCO2 34 pH of 7.45. Patient is still requiring hemodialysis she is also requiring norepinephrine at 0.14 mcg/kg/min propofol at 10 mcg/kg/min receiving vital HP at 55/55 patient had a drop in her hemoglobin today down to 6 and she is receiving a unit of packed RBCs may require even more. WBC count is 1.6 hemoglobin 6 platelets are 70,000. Antibiotics whitley she is on acyclovir, vancomycin and Zosyn patient is requiring hemodialysis today. Neurologically the patient is about the same, she opens her eyes, does not track, does not follow any instructions, hence will consider discontinuing propofol or cutting the dose further down to fully assess mental status off sed ation completely. Chest x-ray continues to show COPD, and multifocal infiltrates left more so than right. Last sputum culture from 09/01 was nondiagnostic she had at 1 point positive blood cultures for Staph epidermidis blood cultures remain negative all along. Patient was seen today on 09/06/2024, patient remains in the ICU, intubated and mechanically ventilated. Remains on pressure control mode of mechanical ventilation, pressure control of 20 inspiratory time of 0.8 rate normal 18, FiO2 40% and PEEP of 5 ABG is marginal with a pO2 of 65 pCO2 of 35 pH of 7.45 FiO2 was increased from 40% to 45%. Otherwise no changes were made in her vent settings. Patient is still requiring norepinephrine for low blood pressure she is on norepinephrine at 0.09 mcg/kg/min propofol has been on hold since yesterday IV fluid at KVO vital AF at 55 cc/h remains on Zosyn Decadron and Lovenox. Patient continues to have poor mental status, she opens her eyes but does not follow any instructions according to the nurse yesterday she had 1 episode when she was following simple instructions intermittently, patient received a dose of Dilaudid today, and now she is unable to follow any instructions. Continues to have leukopenia with WBC of 1.2 hemoglobin is 7 patient received a unit of packed RBCs yesterday. Basic metabolic profile is relatively normal bicarb is normal BUN is 73 creatinine 2.09 intermittently receiving dialysis. Antibiotics and antiviral whitley, patient remains on acyclovir, remains on Zosyn, off vancomycin. Chest x-ray continues to show similar multifocal airspace opacities left more so than right. Patient was seen today on 09/07/2024, remains in the ICU, intubated and mechani serenity ventilated, patient remains on pressure mode of mechanical ventilation/pressure control with pressure control of 20 TI 0.8 FiO2 45% PEEP of 5 and rate 18. ABG is marginal with a pO2 of 66 pCO2 35 pH of 7.31, patient was placed on pressure support mode of mechanical ventilation with pressure support of 10 and CPAP, noted bicarb to be low, hence the patient was given an amp of bicarb. Patient is still requiring norepinephrine at 0.07 mcg/kg/min propofol has been on hold for the last 2 days patient will receive a unit of packed RBCs for low hemoglobin patient is on hemodialysis today, and she is still receiving Zosyn. Mentation whitley is about the same, patient opens eyes but does not follow any instructions and obviously she is not quite ready for weaning chest x-ray continues show bilateral patchy infiltrates. Because of her mental status, will continue to hold sedation, and again I have no plans to wean or extubate this patient at this point yet. WBC count is 1.1 hemoglobin 6.7 a unit of packed RBCs will be given electrolytes are normal bicarb is 21 anion gap is 14 BUN is 106 creatinine 2.54 patient is on dialysis today. Patient was seen today on 09/08/2024, patient remains in the ICU remains intubated on mechanically ventilated, patient is on assist-control rate of 24 t idal volume 500 FiO2 50% PEEP of 5 patient seems to be quite tachypneic and does not follow any instructions opens her eyes, seems to be working hard to breathe, adjustments were made on the ventilator with increasing the flow and increasing the rate to override her effort, continued to have tachypnea and almost struggling to breathe. Holding sedation for the last few days does not seem to be helping hence I am recommending that we sedate the patient and I would recommend that she goes back on propofol. From the overall picture, I believe the patient may eventually need tracheostomy and PEG tube placement. She is not going to be an easy wean, and tracheostomy and PEG tube placement will be an appropriate decision unless the family decides to go with comfort care measures. ABG today showed a pO2 of 70 pCO2 43 pH of 7.36. Yesterday patient had almost 6 hours of pressure support and CPAP, she was noted to breathe hard, but maintained adequate saturation and maintained adequate pulmonary status. Again because of her mental status and a bit reluctant to extubate the patient. She will probably develop difficulty with clearing her secretions and will not be able to tolerate extubation. Hence most likely we may be heading towards tracheostomy and PEG tube placement. Neurology saw the patient for her mental status CT of the brain is negative. Continues to have leukopenia with WBC count of 1.2 hemoglobin is 7.5 platelets are also low at 55,000 patient has multiple myeloma ABG as noted earlier basic metabolic profile is normal bicarb is now 24 BUN is 82 creatinine 1.72 I do not believe patient will be dialyzed today. Seen today on 09/09/2024, patient remains in the ICU, intubated and mechanically ventilated. Patient remains encephalopathic hence I could not do much in the form of weaning trials on this patient, except she did go on pressure support and CPAP for quite some time, tolerated but because of her mental status and encephalopathy, could not proceed any further with weaning/extubation. She was placed back on mechanical ventilation AC mode, volume control, she is on assist- control rate of 24 tidal volume 500 FiO2 50% and PEEP of 5 ABG showed a pO2 of 84 pCO2 39 pH of 7.40. Last night the patient became hypotensive specially during her hemodialysis, and I recommended norepinephrine it was running at 0.04 mcg/kg/min vasopressin at 0.03, patient did well after her hemodialysis, and she is now off pressors. Hemoglobin this morning is 6.8, patient will receive a unit of packed RBCs at this is her fourth unit. Remains on Decadron, remains on Zosyn, remains on hemodialysis, and she remains encephalopathic, hence I am recommending tracheostomy and PEG tube placement, family apparently is not opposed to the idea of tracheostomy and PEG tube placement. Patient has been now intubated for 2 weeks, and she is not ready to wean and extubate, even if she is extubated, patient will not tolerate that for a long time considering her mental status/encephalopathy. She did well with pressure support and CPAP, but her mental status is still concerning. Continues to have leukopenia with WBC of 1.2 hemoglobin 6.8 electrolytes are normal BUN is 85 creatinine 1.66 patient did receive hemodialysis yesterday. Patient remains on bronchodilators, remains on Decadron 4 mg p.o. daily, remains on Zosyn, she is also receiving bicarb, and she is also on midodrine as well as amiodarone twice daily. Orally. Objective - Vital Signs Vital signs: Vital Signs Temp 98 F 09/09/24 09:45 Pulse 89 09/09/24 09:45 Resp 24 09/09/24 09:45 BP 87/52 09/09/24 09:45 Pulse Ox 95 09/09/24 07:00 FiO2 50 09/09/24 08:00 Intake & Output 09/08/24 09/09/24 09/09/24 18:59 06:59 18:59 Intake Total 8110.892 4565.659 345.628 Output Total 3070 910 10 Balance -1403.613 455.659 335.628 Weight 71.8 kg Intake: IV 273 276 23 .9NS KVO 240 240 20 .9NS Pressure Bag 33 36 3 Intake, IV Titration 248.387 119.659 12.628 Amount Norepinephrine 8 mg In 227.196 68.659 9.644 Sodium Chloride 0.9% 250 ml @ 0.03 MCG/KG/MIN 3. 106 mls/hr IV .Q24H [facility] Rx#:[id number] Vasopressin 20 unit In 21.191 51 2.984 Sodium Chloride 0.9% 50 ml @ 0.03 UNITS/MIN 4.59 mls/hr IV .Q11H7M [facility] Rx# :[id number] Tube Feeding 605 660 Blood Product 310 310 Rc Irr As1 Unit 0 310 [id number] Hemodialysis 450 Other 90 Output: Urine 20 10 10 Stool 500 900 Hemodialysis 1500 Hemodialysis Net Amount 1050 Other: Voiding Method Indwelling Catheter Indwelling Catheter ABP, PAP, CO, CI - Last Documented Arterial Blood Pressure 127/67 - Exam GENERAL EXAM: 64-year-old female intubated mechanically ventilated, encephalopathic, opens eyes but does not follow any instructions HEAD: Normocephalic. Atraumatic EYES: Normal reaction of pupils, equal size. NOSE: Clear with pink turbinates. THROAT: Endotracheal tube and gastric tube are intact. NECK: No masses, no JVD. CHEST: No chest wall deformity. LUNGS: Crackles at the bases no rhonchi no wheezes CVS: S1 and S2 normal with no audible murmur, regular rhythm. ABDOMEN: Soft nontender no MAG no rebound no guarding SKIN: No rashes CENTRAL NERVOUS SYSTEM: No major change in her mental status and she remains encephalopathic opens eyes does not follow any instructions EXTREMITIES: There is no peripheral edema. No clubbing, no cyanosis. Peripheral pulses are intact. - Labs CBC & Chem 7: 09/09/24 03:50 09/09/24 03:50 Labs: Abnormal Lab Results - Last 24 Hours (Table) 09/07/24 09/08/24 09/08/24 Range/Units 13:40 03:15 11:38 WBC (3.8-10.6) k/uL RBC (3.80-5.40) m/uL Hgb (11.4-16.0) gm/dL Hct (34.0-46.0) % RDW (11.5-15.5) % Plt Count (150-450) k/uL ABG Total CO2 (19-24) mmol/L Hemoglobin (11.4-16.0) gm/dL Sodium (137-145) mmol/L Chloride (98-107) mmol/L BUN (7-17) mg/dL Creatinine (0.52-1.04) mg/dL Glucose (74-99) mg/dL POC Glucose (mg/dL) 177 H (70-110) mg/dL Calcium (8.4-10.2) mg/dL ALT (4-34) U/L Total Protein (6.3-8.2) g/dL Albumin (3.5-5.0) g/dL Procalcitonin 7.42 H (0.02-0.50) ng/mL Crossmatch See Detail Blood Bank Comment Sent to [facility] 09/08/24 09/08/24 09/09/24 Range/Units 17:43 23:32 03:50 WBC 1.2 L* (3.8-10.6) k/uL RBC 2.33 L (3.80-5.40) m/uL Hgb 6.8 L* (11.4-16.0) gm/dL Hct 20.6 L (34.0-46.0) % RDW 18.5 H (11.5-15.5) % Plt Count 61 L (150-450) k/uL ABG Total CO2 (19-24) mmol/L Hemoglobin (11.4-16.0) gm/dL Sodium (137-145) mmol/L Chloride (98-107) mmol/L BUN (7-17) mg/dL Creatinine (0.52-1.04) mg/dL Glucose (74-99) mg/dL POC Glucose (mg/dL) 259 H 243 H (70-110) mg/dL Calcium (8.4-10.2) mg/dL ALT (4-34) U/L Total Protein (6.3-8.2) g/dL Albumin (3.5-5.0) g/dL Procalcitonin (0.02-0.50) ng/mL Crossmatch Blood Bank Comment 09/09/24 09/09/24 09/09/24 Range/Units 03:50 05:37 05:54 WBC (3.8-10.6) k/uL RBC (3.80-5.40) m/uL Hgb (11.4-16.0) gm/dL Hct (34.0-46.0) % RDW (11.5-15.5) % Plt Count (150-450) k/uL ABG Total CO2 25 H (19-24) mmol/L Hemoglobin 6.5 L* (11.4-16.0) gm/dL Sodium 130 L (137-145) mmol/L Chloride 95 L (98-107) mmol/L BUN 85 H (7-17) mg/dL Creatinine 1.66 H (0.52-1.04) mg/dL Glucose 219 H (74-99) mg/dL POC Glucose (mg/dL) 231 H (70-110) mg/dL Calcium 7.7 L (8.4-10.2) mg/dL ALT 40 H (4-34) U/L Total Protein 5.3 L (6.3-8.2) g/dL Albumin 2.2 L (3.5-5.0) g/dL Procalcitonin (0.02-0.50) ng/mL Crossmatch Blood Bank Comment Assessment and Plan Assessment: Impression: Acute hypoxic respiratory failure, multifactorial Acute exacerbation of COPD Acute on chronic systolic congestive heart failure Acute COVID-19 pneumonia, underlying bacterial pneumonia is not entirely ruled out. Hence patient remains on Zosyn empirically Sepsis and septic shock with hypotension secondary to pneumonia History of multiple myeloma has been on Revlimid, patient has chronic pancytopenia Right upper lobe spiculated nodule with positive PET scan needs outpatient workup it is 1.7 cm highly suspicious for bronchogenic carcinoma/adenocarcinoma Tobacco dependence syndrome End-stage renal disease, on hemodialysis Benign essential hypertension Chronic anemia Status post PICC line placement on 09/04/2024 Failure to wean because of her encephalopathy Acute metabolic encephalopathy Recommendations: Continue ventilatory support, patient did not tolerate pressure support and CPAP, but because of her mental status I did not feel comfortable extubating the patient as she may not be able to clear her secretions and cannot protect her airways. Hence now I am recommending tracheostomy and PEG tube placement, will consult surgery to evaluate. Continue hemodialysis Continue amiodarone Continue acyclovir and Zosyn Continue GI and DVT prophylaxis Continue nutritional support/enteral feeding Transfuse for hemoglobin below 7 Continue sedation/low-dose propofol Use pressors as needed for hemodynamic instability, she had to go on pressors including norepinephrine and vasopressin yesterday for a short period of time Prognosis remains guarded Surgical consult for possible trach and PEG tube placement Remains critically ill Critical care time is over 30 minutes Time with Patient: Greater than 30
[2024-09-09 11:48] LABS: Glucose,Whole Blood 184 mg/dL (70-110)
[2024-09-09] MEDS: MIDODRINE 5 MG TAB PO SCH (11:51)
[2024-09-09 13:05] LABS: Anisocytosis Slight; HCT 22.3 % (34.0-46.0); HGB 7.4 gm/dL (11.4-16.0); Hypochromasia Slight; MCH 29.6 pg (25.0-35.0); MCHC 33.2 g/dL (31.0-37.0); MCV 89.2 fL (80.0-100.0); Mean Platelet Volume 12.7; RDW 17.8 % (11.5-15.5)
[2024-09-09 13:15] LABS: WBC 0.8 k/uL (3.8-10.6)
[2024-09-09 13:25] LABS: Platelet Count 51 k/uL (150-450)
--- NOTE | 2024-09-09 14:28 | P.GSCN ---
History of Present Illness Consult date: 09/09/24 History of present illness: CHIEF COMPLAINT: Respiratory failure and inadequate oral intake HISTORY OF PRESENT ILLNESS: The patient is a 64-year-old female who initially presented to the hospital 08/21/2024 with right lower extremity pain. Her history significant for end-stage renal disease including lung cancer. Patient has been recently diagnosed with multiple myeloma. She is on hemodialysis. During hospitalization, patient developed atrial flutter for which she was placed on Cardizem drip per cardiology. Patient had a recent chemotherapy for lung cancer in July, last month. Patient August 23, 2024, 2 weeks ago, went into hypoxemic respiratory failure and transferred to intensive care unit and has been on the ventilator. Patient was noted to be COVID-positive. At this time, multiple consultants following. General surgery is consulted for failed extubation with placement of tracheostomy and gastrostomy tube placement. Patient is in the intensive care unit on full ventilatory support. Patient has pancytopenia due to recent chemotherapy status post blood transfusion. She had a total of 4 units of blood during this admission. PAST MEDICAL HISTORY: See list and reviewed PAST SURGICAL HISTORY: See list and reviewed MEDICATIONS: See list and reviewed ALLERGIES: See list and reviewed SOCIAL HISTORY: See list and reviewed FAMILY HISTORY: See list and reviewed REVIEW OF ORGAN SYSTEMS: CONSTITUTIONAL: No fevers or chills. BMI normal 24.1 EYES: No current trouble with vision. HEENT: No difficulties with hearing. RESPIRATORY: Current hypoxemic respiratory failure. Pre-existing history of lung cancer including chronic struct of pulmonary disease. CARDIOVASCULAR: Recent history of atrial flutter. History of cardiac ablation. GASTROINTESTINAL: No current blood in stools. No hematemesis. History of gastroesophageal reflux disease. GENITOURINARY: End-stage renal disease hemodialysis dependent. NEUROLOGICAL: Has metabolic encephalopathy. MUSCULOSKELETAL: Has multiple myeloma. SKIN: No current skin cancer. PSYCHIATRIC: Has metabolic encephalopathy. ENDOCRINE: Has multiple thyroid disorders. No active diabetes. HEME/LYMPHATIC: Multiple myeloma. ALLERGY/IMMUNOLOGY: Recent chemotherapy. BREAST: No current breast cancer. PHYSICAL EXAM: VITALS: Reviewed CONSTITUTIONAL: Well developed and in no acute distress. EYES: Conjuctivae without sclera icterus. Extraocular movements grossly intact. HEAD, EARS, NOSE, THROAT: Moist buccal mucosa. Head is atraumatic, normocephalic. Hears conversational speech. No nasal drainage. NECK: No JV distention. No thyroidomegaly. RESPIRATORY: Non-labored respirations and equal bilateral excursions. No gross wheezes. Full mechanical support. CARDIOVASCULAR: Palpable 2+ radial pulses. ABDOMEN: No peritonitis. MUSCULOSKELETAL: No clubbing cyanosis. SKIN: Warm and well perfused with good skin turgor. NEUROLOGIC: Lethargic mentation. PSYCH: Lethargic mentation. CLINCAL LABS: Reviewed WBC 0.8, leukopenia down from 13,000 earlier in hospitalization. Hemoglobin up 6.8-7.4 after 1 unit of blood. IMAGING: Independently reviewed. Pelvis CT during this admission revealed without contrast demonstrates a large right groin lymph node. This is my independent interpretation. RECORDS: previous old records reviewed including recent radiation August 17, 2024 for radiation oncology treatment ASSESSMENT: 1. Failure weaning from hypoxemic respiratory failure 2. Lung cancer 3. Multiple myeloma 4. End-stage renal disease dialysis dependent 5. Pancytopenia following chemotherapy 6. Right groin lymph node mass PLAN: 1. Patient has had a failure to wound for over 2 weeks for which gastrostomy tube and tracheostomy tube is being requested. At this time, patient will be elevated risk due to acute pancytopenia. 2. Monitor hemoglobin as she is anemic, hemoglobin 7.4. 3. May need additional transfusions and monitor of global CBC due to pancytopenia from recent chemotherapy. ADVANCE DIRECTIVE: CODE STATUS in chart. Thank you for this kind consultation. 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 Past Anesthesia/Blood Transfusion Reactions: No Reported Reaction Additional Past Anesthesia/Blood Transfusion Reaction / Comm: Clausterphobic. Past Psychological History: No Psychological Hx Reported Additional Psychological History / Comment(s): Clausterphobic. Smoking Status: Former smoker Past Alcohol Use History: None Reported Additional Past Alcohol Use History / Comment(s): Started smoking in 1971, smoked 1/2 ppd, quit 01/05/22. Used to drink two 32 ounce beers per day, quit 01/01/24. Past Drug Use History: Marijuana Additional Drug Use History / Comment(s): Marijuana gummies, weed salves. Aware no use 24 hrs prior to procedure. - Past Family History Father Additional Family Medical History / Comment(s): Father is from an e nlarged heart/iglesias's lung. Mother Family Medical History: No Reported History Medications and Allergies Home Medications Medication Instructions Recorded Confirmed Type Budesonide/Formoterol Fumarate 2 puff INHALATION RT-BID PRN 01/05/24 08/21/24 History [Breyna 80-4.5 Mcg Inhaler] Acetaminophen [Tylenol Extra 500 mg PO BID 05/11/24 08/21/24 History Strength] Acyclovir [Zovirax] 400 mg PO BID 08/21/24 08/21/24 History Ascorbic Acid [Vitamin C] 1,000 mg PO DAILY 08/21/24 08/21/24 History Aspirin EC [Ecotrin Low Dose] 81 mg PO DAILY 08/21/24 08/21/24 History Calcium Carbonate/Vitamin D3 1 tab PO DAILY 08/21/24 08/21/24 History [Calcium 600 mg-Vit D3 10 mcg (400 Unit)] Cholecalciferol [Vitamin D3 (125 125 mcg PO DAILY 08/21/24 08/21/24 History Mcg = 5000 Iu)] Cyanocobalamin [Vitamin B-12] 500 mcg PO DAILY 08/21/24 08/21/24 History Ferrous Sulfate [Feosol] 325 mg PO DAILY 08/21/24 08/21/24 History Folic Acid 0.8 mg PO DAILY 08/21/24 08/21/24 History Glucosam/Christiano-Msm1/C/Giovanny/Bosw 1 tab PO DAILY 08/21/24 08/21/24 History [Glucosamine-Chondroitin Tablet] Loratadine 10 mg PO DAILY 08/21/24 08/21/24 History Multivitamins, Thera [Multivitamin 1 tab PO DAILY 08/21/24 08/21/24 History (formulary)] [place]-3/Dha/Epa/Fish Oil [Fish Oil 1 cap PO DAILY 08/21/24 08/21/24 History 1,000 mg Softgel] Omeprazole 20 mg PO DAILY 08/21/24 08/21/24 History Vit C/E/Zn/Coppr/Lutein/Zeaxan 1 tab PO DAILY 08/21/24 08/21/24 History [Preservision Areds 2 Softgel] Vitamin E (Dl,Tocopheryl Acet) 400 unit PO DAILY 08/21/24 08/21/24 History [Vitamin E (400 Iu = 180 mg)] dexAMETHasone [Decadron] 8 mg PO DAILY 08/21/24 08/21/24 History Allergies Allergy/AdvReac Type Severity Reaction Status Date / Time bee venom protein (honey bee) Allergy Anaphylaxis Verified 08/21/24 10:40 chocolate Allergy Anaphylaxis Verified 08/21/24 19:54 codeine Allergy Anaphylaxis Verified 08/21/24 10:40 levofloxacin [From Levaquin] Allergy Unknown Verified 08/21/24 10:40 red dye Allergy Anaphylaxis Verified 08/21/24 10:40 strawberry Allergy Anaphylaxis Verified 08/21/24 10:40 tree nut [Nut] Allergy Anaphylaxis Verified 08/21/24 19:54 STEROIDS AdvReac Severe rage Uncoded 08/21/24 05:16 behavior-"almost killed my dog" Surgical - Exam Vital Signs Temp Pulse Resp BP Pulse Ox 98.1 F 105 H 24 121/60 96 08/21/24 05:06 08/21/24 05:06 08/21/24 05:06 08/21/24 05:06 08/21/24 05:06 Results - Labs 09/09/24 12:55 09/09/24 03:50 Abnormal Lab Results - Last 24 Hours (Table) 09/07/24 09/08/24 09/08/24 Range/Units 13:40 03:15 17:43 WBC (3.8-10.6) k/uL RBC (3.80-5.40) m/uL Hgb (11.4-16.0) gm/dL Hct (34.0-46.0) % RDW (11.5-15.5) % Plt Count (150-450) k/uL ABG Total CO2 (19-24) mmol/L Hemoglobin (11.4-16.0) gm/dL Sodium (137-145) mmol/L Chloride (98-107) mmol/L BUN (7-17) mg/dL Creatinine (0.52-1.04) mg/dL Glucose (74-99) mg/dL POC Glucose (mg/dL) 259 H (70-110) mg/dL Calcium (8.4-10.2) mg/dL ALT (4-34) U/L Total Protein (6.3-8.2) g/dL Albumin (3.5-5.0) g/dL Procalcitonin 7.42 H (0.02-0.50) ng/mL Cortisol (3.1-22.4) UG/DL Crossmatch See Detail Blood Bank Comment Sent to [facility] 09/08/24 09/09/24 09/09/24 Range/Units 23:32 03:50 03:50 WBC 1.2 L* (3.8-10.6) k/uL RBC 2.33 L (3.80-5.40) m/uL Hgb 6.8 L* (11.4-16.0) gm/dL Hct 20.6 L (34.0-46.0) % RDW 18.5 H (11.5-15.5) % Plt Count 61 L (150-450) k/uL ABG Total CO2 (19-24) mmol/L Hemoglobin (11.4-16.0) gm/dL Sodium 130 L (137-145) mmol/L Chloride 95 L (98-107) mmol/L BUN 85 H (7-17) mg/dL Creatinine 1.66 H (0.52-1.04) mg/dL Glucose 219 H (74-99) mg/dL POC Glucose (mg/dL) 243 H (70-110) mg/dL Calcium 7.7 L (8.4-10.2) mg/dL ALT 40 H (4-34) U/L Total Protein 5.3 L (6.3-8.2) g/dL Albumin 2.2 L (3.5-5.0) g/dL Procalcitonin (0.02-0.50) ng/mL Cortisol (3.1-22.4) UG/DL Crossmatch Blood Bank Comment 09/09/24 09/09/24 09/09/24 Range/Units 05:37 05:54 07:37 WBC (3.8-10.6) k/uL RBC (3.80-5.40) m/uL Hgb (11.4-16.0) gm/dL Hct (34.0-46.0) % RDW (11.5-15.5) % Plt Count (150-450) k/uL ABG Total CO2 25 H (19-24) mmol/L Hemoglobin 6.5 L* (11.4-16.0) gm/dL Sodium (137-145) mmol/L Chloride (98-107) mmol/L BUN (7-17) mg/dL Creatinine (0.52-1.04) mg/dL Glucose (74-99) mg/dL POC Glucose (mg/dL) 231 H (70-110) mg/dL Calcium (8.4-10.2) mg/dL ALT (4-34) U/L Total Protein (6.3-8.2) g/dL Albumin (3.5-5.0) g/dL Procalcitonin (0.02-0.50) ng/mL Cortisol 29.9 H (3.1-22.4) UG/DL Crossmatch Blood Bank Comment 09/09/24 09/09/24 Range/Units 11:47 12:55 WBC 0.8 L* (3.8-10.6) k/uL RBC 2.50 L (3.80-5.40) m/uL Hgb 7.4 L (11.4-16.0) gm/dL Hct 22.3 L (34.0-46.0) % RDW 17.8 H (11.5-15.5) % Plt Count 51 L (150-450) k/uL ABG Total CO2 (19-24) mmol/L Hemoglobin (11.4-16.0) gm/dL Sodium (137-145) mmol/L Chloride (98-107) mmol/L BUN (7-17) mg/dL Creatinine (0.52-1.04) mg/dL Glucose (74-99) mg/dL POC Glucose (mg/dL) 184 H (70-110) mg/dL Calcium (8.4-10.2) mg/dL ALT (4-34) U/L Total Protein (6.3-8.2) g/dL Albumin (3.5-5.0) g/dL Procalcitonin (0.02-0.50) ng/mL Cortisol (3.1-22.4) UG/DL Crossmatch Blood Bank Comment Diabetes panel 09/09/24 Range/Units 03:50 Sodium 130 L (137-145) mmol/L Potassium 4.7 (3.5-5.1) mmol/L Chloride 95 L (98-107) mmol/L Carbon Dioxide 23 (22-30) mmol/L BUN 85 H (7-17) mg/dL Creatinine 1.66 H (0.52-1.04) mg/dL Glucose 219 H (74-99) mg/dL Calcium 7.7 L (8.4-10.2) mg/dL AST 18 (14-36) U/L ALT 40 H (4-34) U/L Alkaline Phosphatase 68 (38-126) U/L Total Protein 5.3 L (6.3-8.2) g/dL Albumin 2.2 L (3.5-5.0) g/dL Calcium panel 09/09/24 Range/Units 03:50 Calcium 7.7 L (8.4-10.2) mg/dL Albumin 2.2 L (3.5-5.0) g/dL Pituitary panel 09/09/24 Range/Units 03:50 Sodium 130 L (137-145) mmol/L Potassium 4.7 (3.5-5.1) mmol/L Chloride 95 L (98-107) mmol/L Carbon Dioxide 23 (22-30) mmol/L BUN 85 H (7-17) mg/dL Creatinine 1.66 H (0.52-1.04) mg/dL Glucose 219 H (74-99) mg/dL Calcium 7.7 L (8.4-10.2) mg/dL Adrenal panel 09/09/24 Range/Units 03:50 Sodium 130 L (137-145) mmol/L Potassium 4.7 (3.5-5.1) mmol/L Chloride 95 L (98-107) mmol/L Carbon Dioxide 23 (22-30) mmol/L BUN 85 H (7-17) mg/dL Creatinine 1.66 H (0.52-1.04) mg/dL Glucose 219 H (74-99) mg/dL Calcium 7.7 L (8.4-10.2) mg/dL Total Bilirubin 0.6 (0.2-1.3) mg/dL AST 18 (14-36) U/L ALT 40 H (4-34) U/L Alkaline Phosphatase 68 (38-126) U/L Total Protein 5.3 L (6.3-8.2) g/dL Albumin 2.2 L (3.5-5.0) g/dL
--- NOTE | 2024-09-09 14:39 | P.PN ---
Subjective Progress Note Date: 09/09/24 Principal diagnosis: Reason for follow-up is fever Patient is a 64-year-old female with a past medical history significant for COPD hypertension osteoarthritis end-stage renal disease on dialysis to the right subclavian permacatheter since May 2024 initially presented to hospital with right leg pain subsequently did have acute respiratory failure requiring intubation tested positive for COVID-19 starting a fever on 08/28/2024 prompted this consultation on 09/01/2024 On today's visit that is 09/09/2024, Patient is afebrile patient is currently on on the ventilator FiO2 at 50% no significant purulent secretion through the ET or any other changes reported by the nursing staff. Patient white count is down to 0.8 creatinine is 1.66 Pro-Reinier is down to 7.42 still elevated Objective - Vital Signs Vital signs: Vital Signs Temp 98 F 09/09/24 09:45 Pulse 68 09/09/24 11:15 Resp 19 09/09/24 11:15 BP 90/46 09/09/24 11:15 Pulse Ox 95 09/09/24 11:15 FiO2 50 09/09/24 12:00 Intake & Output 09/08/24 09/09/24 09/09/24 18:59 06:59 18:59 Intake Total 6962.903 8274.659 667.628 Output Total 3070 910 40 Balance -1403.613 455.659 627.628 Weight 71.8 kg Intake: IV 273 276 35 .9NS KVO 240 240 20 .9NS Pressure Bag 33 36 15 Intake, IV Titration 248.387 119.659 12.628 Amount Norepinephrine 8 mg In 227.196 68.659 9.644 Sodium Chloride 0.9% 250 ml @ 0.03 MCG/KG/MIN 3. 106 mls/hr IV .Q24H [facility] Rx#:[id number] Vasopressin 20 unit In 21.191 51 2.984 Sodium Chloride 0.9% 50 ml @ 0.03 UNITS/MIN 4.59 mls/hr IV .Q11H7M [facility] Rx# :[id number] Tube Feeding 605 660 220 Blood Product 310 310 Rc Irr As1 Unit 0 310 [id number] Hemodialysis 450 Other 90 90 Output: Urine 20 10 40 Stool 500 900 Hemodialysis 1500 Hemodialysis Net Amount 1050 Other: Voiding Method Indwelling Catheter Indwelling Catheter Indwelling Catheter ABP, PAP, CO, CI - Last Documented Arterial Blood Pressure 93/53 - Exam GENERAL DESCRIPTION: An elderly female intubated on the vent RESPIRATORY SYSTEM: Unlabored breathing , decreased breath sounds at bases HEART: S1 S2 regular rate and rhythm , ABDOMEN: Soft , no tenderness EXTREMITIES: No edema feet - Labs CBC & Chem 7: 09/09/24 12:55 09/09/24 03:50 Labs: Abnormal Lab Results - Last 24 Hours (Table) 09/07/24 09/08/24 09/08/24 Range/Units 13:40 03:15 17:43 WBC (3.8-10.6) k/uL RBC (3.80-5.40) m/uL Hgb (11.4-16.0) gm/dL Hct (34.0-46.0) % RDW (11.5-15.5) % Plt Count (150-450) k/uL ABG Total CO2 (19-24) mmol/L Hemoglobin (11.4-16.0) gm/dL Sodium (137-145) mmol/L Chloride (98-107) mmol/L BUN (7-17) mg/dL Creatinine (0.52-1.04) mg/dL Glucose (74-99) mg/dL POC Glucose (mg/dL) 259 H (70-110) mg/dL Calcium (8.4-10.2) mg/dL ALT (4-34) U/L Total Protein (6.3-8.2) g/dL Albumin (3.5-5.0) g/dL Procalcitonin 7.42 H (0.02-0.50) ng/mL Crossmatch See Detail Blood Bank Comment Sent to [facility] 09/08/24 09/09/24 09/09/24 Range/Units 23:32 03:50 03:50 WBC 1.2 L* (3.8-10.6) k/uL RBC 2.33 L (3.80-5.40) m/uL Hgb 6.8 L* (11.4-16.0) gm/dL Hct 20.6 L (34.0-46.0) % RDW 18.5 H (11.5-15.5) % Plt Count 61 L (150-450) k/uL ABG Total CO2 (19-24) mmol/L Hemoglobin (11.4-16.0) gm/dL Sodium 130 L (137-145) mmol/L Chloride 95 L (98-107) mmol/L BUN 85 H (7-17) mg/dL Creatinine 1.66 H (0.52-1.04) mg/dL Glucose 219 H (74-99) mg/dL POC Glucose (mg/dL) 243 H (70-110) mg/dL Calcium 7.7 L (8.4-10.2) mg/dL ALT 40 H (4-34) U/L Total Protein 5.3 L (6.3-8.2) g/dL Albumin 2.2 L (3.5-5.0) g/dL Procalcitonin (0.02-0.50) ng/mL Crossmatch Blood Bank Comment 09/09/24 09/09/24 09/09/24 Range/Units 05:37 05:54 11:47 WBC (3.8-10.6) k/uL RBC (3.80-5.40) m/uL Hgb (11.4-16.0) gm/dL Hct (34.0-46.0) % RDW (11.5-15.5) % Plt Count (150-450) k/uL ABG Total CO2 25 H (19-24) mmol/L Hemoglobin 6.5 L* (11.4-16.0) gm/dL Sodium (137-145) mmol/L Chloride (98-107) mmol/L BUN (7-17) mg/dL Creatinine (0.52-1.04) mg/dL Glucose (74-99) mg/dL POC Glucose (mg/dL) 231 H 184 H (70-110) mg/dL Calcium (8.4-10.2) mg/dL ALT (4-34) U/L Total Protein (6.3-8.2) g/dL Albumin (3.5-5.0) g/dL Procalcitonin (0.02-0.50) ng/mL Crossmatch Blood Bank Comment Assessment and Plan (1) Fever Current Visit: Yes Status: Acute Code(s): R50.9 - FEVER, UNSPECIFIED SNOMED Code(s): 171097265 (2) Leukopenia Current Visit: Yes Status: Acute Code(s): D72.819 - DECREASED WHITE BLOOD CELL COUNT, UNSPECIFIED SNOMED Code(s): 28952266 (3) Sepsis Current Visit: Yes Status: Acute Code(s): A41.9 - SEPSIS, UNSPECIFIED ORG ANISM SNOMED Code(s): 60467371 Plan: 1patient with sepsis in this patient who did have fever and leukopenia patient has been in the hospital for more than 10 days before this initial evaluation with initial presentation to hospital with right leg pain subsequently did have acute respiratory failure requiring intubation and admission to ICU on 08/23/2024 patient was afebrile initially started running a fever as of 08/28/2024 2blood culture has been negative positive UA has been negative, sputum culture negative, patient did have elevated procalcitonin 3 patient did have resolution of the fever however the patient continued to have significant leukopenia could be related to Zovirax which was discontinued yesterday still white count low and will be monitored closely 4-patient to continue Zosyn as procalcitonin still elevated though trending down at 7.42 Dictation was produced using [employer] dictation software. please excuse any gram matical, word or spelling errors. Time with Patient: Less than 30
[2024-09-09] MEDS: METOPROLOL TARTRATE 25 MG TAB PO SCH (15:55)
[2024-09-09 18:07] LABS: Glucose,Whole Blood 174 mg/dL (70-110)
--- NOTE | 2024-09-09 20:14 | P.PN ---
Subjective The patient is 64-year-old female essentially admitted to ICU for respiratory failure atrial fibrillation and element of COVID pneumonia. She is still requiring significant respiratory support although the patient has been weaned to 40% FiO2. Drug holiday is noted. Transfusion is pending. This is a pleasant 64 years old female who presents initially for right leg pain. Patient found to have tachypnea and tachycardic with mildly worsening o xygen saturation. Found to have acute bilateral COVID-pneumonia. With bronchospasm For his right leg pain thought secondary to right groin mass imaging showing enlarged lymph node. Patient is a known case of lung cancer and multiple myeloma. Also she is end-stage renal disease on hemodialysis Patient was confused with cardiomyopathy and severe pulmonary hypertension. Patient was intubated for acute hypoxia on 08/23. Patient currently kept in the ICU. Patient is still in the critical condition and today propofol has to be placed and Levophed to was started for the patient. Objective - Vital Signs Vital signs: Vital Signs Temp 99.1 F 09/08/24 12:00 Pulse 103 H 09/08/24 12:00 Resp 23 09/08/24 12:00 BP 122/72 09/08/24 12:00 Pulse Ox 94 L 09/08/24 12:00 FiO2 50 09/08/24 12:00 Intake & Output 09/07/24 09/08/24 09/08/24 18:59 06:59 18:59 Intake Total 1406.361 245.088 464.643 Output Total 2974 30 0 Balance -1567.639 215.088 464.643 Weight 69.2 kg 73.1 kg Intake: IV 276 243 112 .9NS KVO 240 240 100 .9NS Pressure Bag 36 3 12 Intake, IV Titration 135.361 2.088 102.643 Amount Norepinephrine 8 mg In 135.361 2.088 102.643 Sodium Chloride 0.9% 250 ml @ 0.03 MCG/KG/MIN 3. 106 mls/hr IV .Q24H [facility] Rx#:[id number] Tube Feeding 385 220 Blood Product 310 Rc Irr As1 Unit 310 [id number] Hemodialysis 300 Other 30 Output: Urine 74 30 0 Hemodialysis 1600 Hemodialysis Net Amount 1300 Other: Voiding Method Indwelling Catheter Indwelling Catheter Indwelling Catheter ABP, PAP, CO, CI - Last Documented Arterial Blood Pressure 125/64 - Exam -GENERAL: The patient is intubated and sedated HEENT: Pupils are round and equally reacting to light. EOMI. No scleral icterus. No conjunctival pallor. Normocephalic, atraumatic. No pharyngeal erythema. No thyromegaly. CARDIOVASCULAR: S1 and S2 present. No murmurs, rubs, or gallops. -PULMONARY: Chest is clear to auscultation, no wheezing , bilateral crepitation and crackles. Patient with labored breathing ABDOMEN: Soft, nontender, nondistended, normoactive bowel sounds. No palpable organomegaly. MUSCULOSKELETAL: No joint swelling or deformity. EXTREMITIES: No cyanosis, clubbing, or pedal edema. NEUROLOGICAL: Gross neurological examination did not reveal any focal deficits. SKIN: No rashes. no petechiae. - Labs CBC & Chem 7: 09/09/24 12:55 09/09/24 03:50 Labs: Abnormal Lab Results - Last 24 Hours (Table) 09/07/24 09/07/24 09/07/24 Range/Units 06:00 13:40 14:45 WBC (3.8-10.6) k/uL RBC (3.80-5.40) m/uL Hgb (11.4-16.0) gm/dL Hct (34.0-46.0) % RDW (11.5-15.5) % Plt Count (150-450) k/uL ABG pO2 69 L (83-108) mmHg ABG HCO3 27 H (21-25) mmol/L ABG Total CO2 28 H (19-24) mmol/L ABG O2 Saturation 93.2 L (94-97) % Hemoglobin 8.0 L (11.4-16.0) gm/dL Sodium (137-145) mmol/L Chloride (98-107) mmol/L BUN (7-17) mg/dL Creatinine (0.52-1.04) mg/dL Glucose (74-99) mg/dL POC Glucose (mg/dL) (70-110) mg/dL Calcium (8.4-10.2) mg/dL ALT (4-34) U/L Total Protein (6.3-8.2) g/dL Albumin (3.5-5.0) g/dL Vitamin B12 1292.0 H (200.0-944.0) pg/mL Blood Bank [facility] 09/07/24 09/07/24 09/08/24 Range/Units 18:23 23:31 03:15 WBC 1.2 L* (3.8-10.6) k/uL RBC 2.61 L (3.80-5.40) m/uL Hgb 7.5 L (11.4-16.0) gm/dL Hct 22.9 L (34.0-46.0) % RDW 18.6 H (11.5-15.5) % Plt Count 55 L (150-450) k/uL ABG pO2 (83-108) mmHg ABG HCO3 (21-25) mmol/L ABG Total CO2 (19-24) mmol/L ABG O2 Saturation (94-97) % Hemoglobin (11.4-16.0) gm/dL Sodium (137-145) mmol/L Chloride (98-107) mmol/L BUN (7-17) mg/dL Creatinine (0.52-1.04) mg/dL Glucose (74-99) mg/dL POC Glucose (mg/dL) 228 H 177 H (70-110) mg/dL Calcium (8.4-10.2) mg/dL ALT (4-34) U/L Total Protein (6.3-8.2) g/dL Albumin (3.5-5.0) g/dL Vitamin B12 (200.0-944.0) pg/mL Blood Bank Comment 09/08/24 09/08/24 09/08/24 Range/Units 03:15 05:36 05:38 WBC (3.8-10.6) k/uL RBC (3.80-5.40) m/uL Hgb (11.4-16.0) gm/dL Hct (34.0-46.0) % RDW (11.5-15.5) % Plt Count (150-450) k/uL ABG pO2 70 L (83-108) mmHg ABG HCO3 (21-25) mmol/L ABG Total CO2 26 H (19-24) mmol/L ABG O2 Saturation 93.4 L (94-97) % Hemoglobin 7.6 L (11.4-16.0) gm/dL Sodium 132 L (137-145) mmol/L Chloride 97 L (98-107) mmol/L BUN 82 H (7-17) mg/dL Creatinine 1.72 H (0.52-1.04) mg/dL Glucose 153 H (74-99) mg/dL POC Glucose (mg/dL) 169 H (70-110) mg/dL Calcium 7.8 L (8.4-10.2) mg/dL ALT 49 H (4-34) U/L Total Protein 5.6 L (6.3-8.2) g/dL Albumin 2.3 L (3.5-5.0) g/dL Vitamin B12 (200.0-944.0) pg/mL Blood Bank Comment 09/08/24 Range/Units 11:38 WBC (3.8-10.6) k/uL RBC (3.80-5.40) m/uL Hgb (11.4-16.0) gm/dL Hct (34.0-46.0) % RDW (11.5-15.5) % Plt Count (150-450) k/uL ABG pO2 (83-108) mmHg ABG HCO3 (21-25) mmol/L ABG Total CO2 (19-24) mmol/L ABG O2 Saturation (94-97) % Hemoglobin (11.4-16.0) gm/dL Sodium (137-145) mmol/L Chloride (98-107) mmol/L BUN (7-17) mg/dL Creatinine (0.52-1.04) mg/dL Glucose (74-99) mg/dL POC Glucose (mg/dL) 177 H (70-110) mg/dL Calcium (8.4-10.2) mg/dL ALT (4-34) U/L Total Protein (6.3-8.2) g/dL Albumin (3.5-5.0) g/dL Vitamin B12 (200.0-944.0) pg/mL Blood Bank Comment Assessment and Plan Assessment: Acute bilateral COVID-pneumonia, secondary bacterial pneumonia is also suspected Acute COPD exacerbation Acute hypoxic respiratory failure requiring intubation and placed the patient on mechanical ventilation Right groin mass secondary to enlarged lymph node causing right leg pain Lung cancer Multiple myeloma End-stage renal disease on hemodialysis New onset atrial flutter Metabolic encephalopathy Cardiomyopathy with ejection fraction 40 to 45% Severe pulmonary hypertension Plan: Continue with Zosyn Continue dexamethasone continue with pressors Continue with mechanical ventilation as per pulmonary critical care consult will follow the patient closely Continue on cardiac medication Several consultants on the case GI and DVT prophylaxis prognosis is definitely guarded
--- NOTE | 2024-09-09 20:21 | P.PN ---
Subjective The patient is 64-year-old female essentially admitted to ICU for respiratory failure atrial fibrillation and element of COVID pneumonia. She is still requiring significant respiratory support although the patient has been weaned to 40% FiO2. Drug holiday is noted. Transfusion is pending. This is a pleasant 64 years old female who presents initially for right leg pain. Patient found to have tachypnea and tachycardic with mildly worsening o xygen saturation. Found to have acute bilateral COVID-pneumonia. With bronchospasm For his right leg pain thought secondary to right groin mass imaging showing enlarged lymph node. Patient is a known case of lung cancer and multiple myeloma. Also she is end-stage renal disease on hemodialysis Patient was confused with cardiomyopathy and severe pulmonary hypertension. Patient was intubated for acute hypoxia on 08/23. Patient currently kept in the ICU. Patient is still in the critical condition and today propofol has to be placed and Levophed to was started for the patient. 09/09 Patient remains in the ICU intubated and sedated She remains on pressors Her breathing is less labored today Patient is failing weaning Patient was hypotensive, currently improved with Levophed Still getting hemodialysis Monitor anemia Objective - Vital Signs Vital signs: Vital Signs Temp 97.7 F 09/09/24 16:00 Pulse 68 09/09/24 19:00 Resp 24 09/09/24 19:00 BP 99/61 09/09/24 18:45 Pulse Ox 95 09/09/24 19:00 FiO2 50 09/09/24 19:43 Intake & Output 09/09/24 09/09/24 09/10/24 06:59 18:59 06:59 Intake Total 8966.607 7732.068 84.367 Output Total 910 270 5 Balance 570.525 1128.068 79.367 Weight 71.8 kg Intake: IV 276 256 23 .9NS KVO 240 220 20 .9NS Pressure Bag 36 36 3 Intake, IV Titration 119.659 26.068 6.367 Amount Norepinephrine 8 mg In 68.659 23.084 6.367 Sodium Chloride 0.9% 250 ml @ 0.03 MCG/KG/MIN 3. 106 mls/hr IV .Q24H [facility] Rx#:[id number] Vasopressin 20 unit In 51 2.984 Sodium Chloride 0.9% 50 ml @ 0.03 UNITS/MIN 4.59 mls/hr IV .Q11H7M [facility] Rx# :[id number] Tube Feeding 660 550 55 Blood Product 310 310 Rc Irr As1 Unit 0 310 [id number] Other 210 Output: Urine 10 70 5 Stool 900 200 Other: Voiding Method Indwelling Catheter Indwelling Catheter # Bowel Movements 1 ABP, PAP, CO, CI - Last Documented Arterial Blood Pressure 124/65 - Exam -GENERAL: The patient is intubated and sedated HEENT: Pupils are round and equally reacting to light. EOMI. No scleral icterus. No conjunctival pallor. Normocephalic, atraumatic. No pharyngeal erythema. No thyromegaly. CARDIOVASCULAR: S1 and S2 present. No murmurs, rubs, or gallops. -PULMONARY: Chest is clear to auscultation, no wheezing , bilateral crepitation and crackles. Patient with labored breathing ABDOMEN: Soft, nontender, nondistended, normoactive bowel sounds. No palpable organomegaly. MUSCULOSKELETAL: No joint swelling or deformity. EXTREMITIES: No cyanosis, clubbing, or pedal edema. NEUROLOGICAL: Gross neurological examination did not reveal any focal deficits. SKIN: No rashes. no petechiae. - Labs CBC & Chem 7: 09/09/24 12:55 09/09/24 03:50 Labs: Abnormal Lab Results - Last 24 Hours (Table) 09/07/24 09/08/24 09/08/24 Range/Units 13:40 03:15 23:32 WBC (3.8-10.6) k/uL RBC (3.80-5.40) m/uL Hgb (11.4-16.0) gm/dL Hct (34.0-46.0) % RDW (11.5-15.5) % Plt Count (150-450) k/uL ABG Total CO2 (19-24) mmol/L Hemoglobin (11.4-16.0) gm/dL Sodium (137-145) mmol/L Chloride (98-107) mmol/L BUN (7-17) mg/dL Creatinine (0.52-1.04) mg/dL Glucose (74-99) mg/dL POC Glucose (mg/dL) 243 H (70-110) mg/dL Calcium (8.4-10.2) mg/dL ALT (4-34) U/L Total Protein (6.3-8.2) g/dL Albumin (3.5-5.0) g/dL Procalcitonin 7.42 H (0.02-0.50) ng/mL Cortisol (3.1-22.4) UG/DL Crossmatch See Detail Blood Bank Comment Sent to [facility] A 09/09/24 09/09/24 09/09/24 Range/Units 03:50 03:50 05:37 WBC 1.2 L* (3.8-10.6) k/uL RBC 2.33 L (3.80-5.40) m/uL Hgb 6.8 L* (11.4-16.0) gm/dL Hct 20.6 L (34.0-46.0) % RDW 18.5 H (11.5-15.5) % Plt Count 61 L (150-450) k/uL ABG Total CO2 (19-24) mmol/L Hemoglobin (11.4-16.0) gm/dL Sodium 130 L (137-145) mmol/L Chloride 95 L (98-107) mmol/L BUN 85 H (7-17) mg/dL Creatinine 1.66 H (0.52-1.04) mg/dL Glucose 219 H (74-99) mg/dL POC Glucose (mg/dL) 231 H (70-110) mg/dL Calcium 7.7 L (8.4-10.2) mg/dL ALT 40 H (4-34) U/L Total Protein 5.3 L (6.3-8.2) g/dL Albumin 2.2 L (3.5-5.0) g/dL Procalcitonin (0.02-0.50) ng/mL Cortisol (3.1-22.4) UG/DL Crossmatch Blood Bank Comment 09/09/24 09/09/24 09/09/24 Range/Units 05:54 07:37 11:47 WBC (3.8-10.6) k/uL RBC (3.80-5.40) m/uL Hgb (11.4-16.0) gm/dL Hct (34.0-46.0) % RDW (11.5-15.5) % Plt Count (150-450) k/uL ABG Total CO2 25 H (19-24) mmol/L Hemoglobin 6.5 L* (11.4-16.0) gm/dL Sodium (137-145) mmol/L Chloride (98-107) mmol/L BUN (7-17) mg/dL Creatinine (0.52-1.04) mg/dL Glucose (74-99) mg/dL POC Glucose (mg/dL) 184 H (70-110) mg/dL Calcium (8.4-10.2) mg/dL ALT (4-34) U/L Total Protein (6.3-8.2) g/dL Albumin (3.5-5.0) g/dL Procalcitonin (0.02-0.50) ng/mL Cortisol 29.9 H (3.1-22.4) UG/DL Crossmatch Blood Bank Comment 09/09/24 09/09/24 Range/Units 12:55 18:05 WBC 0.8 L* (3.8-10.6) k/uL RBC 2.50 L (3.80-5.40) m/uL Hgb 7.4 L (11.4-16.0) gm/dL Hct 22.3 L (34.0-46.0) % RDW 17.8 H (11.5-15.5) % Plt Count 51 L (150-450) k/uL ABG Total CO2 (19-24) mmol/L Hemoglobin (11.4-16.0) gm/dL Sodium (137-145) mmol/L Chloride (98-107) mmol/L BUN (7-17) mg/dL Creatinine (0.52-1.04) mg/dL Glucose (74-99) mg/dL POC Glucose (mg/dL) 174 H (70-110) mg/dL Calcium (8.4-10.2) mg/dL ALT (4-34) U/L Total Protein (6.3-8.2) g/dL Albumin (3.5-5.0) g/dL Procalcitonin (0.02-0.50) ng/mL Cortisol (3.1-22.4) UG/DL Crossmatch Blood Bank Comment Assessment and Plan Assessment: Acute bilateral COVID-pneumonia, secondary bacterial pneumonia is also suspected Acute COPD exacerbation Acute hypoxic respiratory failure requiring intubation and placed the patient on mechanical ventilation Right groin mass secondary to enlarged lymph node causing right leg pain Lung cancer Multiple myeloma End-stage renal disease on hemodialysis New onset atrial flutter Metabolic encephalopathy Cardiomyopathy with ejection fraction 40 to 45% Severe pulmonary hypertension Plan: Plan for PEG tube and tracheostomy plate method as patient is severely encephalopathic and failed weaning trials Continue with Zosyn Continue dexamethasone continue with pressors Continue with mechanical ventilation as per pulmonary critical care consult will follow the patient closely Continue on cardiac medication Several consultants on the case GI and DVT prophylaxis prognosis is definitely guarded
--- NOTE | 2024-09-09 22:38 | P.PN ---
Subjective Progress Note Date: 09/09/24 HPI: This lady has history of multiple comorbid conditions including multiple myeloma, end-stage renal disease on hemodialysis, lung nodules possible malignancy. Labs today suggestive white count of 1.2 and platelet count of 64 and patient has probably myelodysplastic syndrome/multiple myeloma. No antic oagulation. We are seeing her for atrial fibrillation which is paroxysmal in nature. Today she is in atrial fibrillation rate is fairly well-controlled. She is currently on amiodarone 400 mg and also on oral metoprolol. She is on a ventilator. Atrial fibrillation is a between 90 and 100 today off Cardizem drip. She is on a small dose of Levophed. She has multiple comorbid conditions including COVID infection COPD and lung mass. Today she is in atrial fibrillation rate is slightly fast at about 110 bpm. We will continue oral amiodarone and also increased metoprolol to 50 mg TID daily. Patient is on a small dose of Levophed. Prognosis remains quite poor Progress note 09/08/2024 BP 100/56, heart rate 68 bpm, Labs shows WBC of 1.2, hemoglobin 7.5, BUN of 82, creatinine of 1.72 Maintained on ventilator support, atrial fibrillation on telemetry 09/09/2024 Blood pressure is better as compared to yesterday BP 123/63, heart rate 69 bpm, rate controlled atrial fibrillation. Still requiring pressors. Appears volume overloaded. PHYSICIAL EXAM: Vitals are stable JVD not evident S1-S2 with irregularity rhythm short systolic murmur, ventilator assisted breath sounds abdomen is soft groin was not examined lower extremities reveal diminished pulses. IMPRESSION: 1. Paroxysmal atrial fibrillation. 2. Acute respiratory failure on the ventilator. 3. Anemia requiring blood transfusions not anticoagulated. 4. End-stage renal disease. 5. Lung mass probable malignancy and multiple myeloma as well. 6. Multiple myeloma with leukopenia and thrombocytopenia 7. Encephalopathy and failure to wean from ventilator support RECOMMENDATIONS: Decrease metoprolol to 25 mg 3 times daily as patient is requiring pressor support and blood pressure soft and heart rates are better Supportive care Anticipate PEG tube and tracheostomy if patient fails weaning off ventilator Prognosis overall guarded Objective - Vital Signs Vital signs: Vital Signs Temp 98.4 F 09/09/24 20:00 Pulse 70 09/09/24 21:15 Resp 16 09/09/24 21:15 BP 99/61 09/09/24 18:45 Pulse Ox 96 09/09/24 21:15 FiO2 50 09/09/24 20:00 Intake & Output 09/09/24 09/09/24 09/10/24 06:59 18:59 06:59 Intake Total 9120.513 6059.068 348.367 Output Total 910 270 220 Balance 413.010 7358.068 128.367 Weight 71.8 kg Intake: IV 276 256 92 .9NS KVO 240 220 80 .9NS Pressure Bag 36 36 12 Intake, IV Titration 119.659 26.068 6.367 Amount Norepinephrine 8 mg In 68.659 23.084 6.367 Sodium Chloride 0.9% 250 ml @ 0.03 MCG/KG/MIN 3. 106 mls/hr IV .Q24H [facility] Rx#:[id number] Vasopressin 20 unit In 51 2.984 Sodium Chloride 0.9% 50 ml @ 0.03 UNITS/MIN 4.59 mls/hr IV .Q11H7M [facility] Rx# :[id number] Tube Feeding 660 550 220 Blood Product 310 310 Rc Irr As1 Unit 0 310 [id number] Other 210 30 Output: Urine 10 70 20 Stool 900 200 200 Other: Voiding Method Indwelling Catheter Indwelling Catheter Indwelling Catheter # Bowel Movements 1 ABP, PAP, CO, CI - Last Documented Arterial Blood Pressure 125/65 - Labs CBC & Chem 7: 09/09/24 12:55 09/09/24 03:50 Labs: Abnormal Lab Results - Last 24 Hours (Table) 09/07/24 09/08/24 09/08/24 Range/Units 13:40 03:15 23:32 WBC (3.8-10.6) k/uL RBC (3.80-5.40) m/uL Hgb (11.4-16.0) gm/dL Hct (34.0-46.0) % RDW (11.5-15.5) % Plt Count (150-450) k/uL ABG Total CO2 (19-24) mmol/L Hemoglobin (11.4-16.0) gm/dL Sodium (137-145) mmol/L Chloride (98-107) mmol/L BUN (7-17) mg/dL Creatinine (0.52-1.04) mg/dL Glucose (74-99) mg/dL POC Glucose (mg/dL) 243 H (70-110) mg/dL Calcium (8.4-10.2) mg/dL ALT (4-34) U/L Total Protein (6.3-8.2) g/dL Albumin (3.5-5.0) g/dL Procalcitonin 7.42 H (0.02-0.50) ng/mL Cortisol (3.1-22.4) UG/DL Crossmatch See Detail Blood Bank Comment Sent to [facility] A 09/09/24 09/09/24 09/09/24 Range/Units 03:50 03:50 05:37 WBC 1.2 L* (3.8-10.6) k/uL RBC 2.33 L (3.80-5.40) m/uL Hgb 6.8 L* (11.4-16.0) gm/dL Hct 20.6 L (34.0-46.0) % RDW 18.5 H (11.5-15.5) % Plt Count 61 L (150-450) k/uL ABG Total CO2 (19-24) mmol/L Hemoglobin (11.4-16.0) gm/dL Sodium 130 L (137-145) mmol/L Chloride 95 L (98-107) mmol/L BUN 85 H (7-17) mg/dL Creatinine 1.66 H (0.52-1.04) mg/dL Glucose 219 H (74-99) mg/dL POC Glucose (mg/dL) 231 H (70-110) mg/dL Calcium 7.7 L (8.4-10.2) mg/dL ALT 40 H (4-34) U/L Total Protein 5.3 L (6.3-8.2) g/dL Albumin 2.2 L (3.5-5.0) g/dL Procalcitonin (0.02-0.50) ng/mL Cortisol (3.1-22.4) UG/DL Crossmatch Blood Bank Comment 09/09/24 09/09/24 09/09/24 Range/Units 05:54 07:37 11:47 WBC (3.8-10.6) k/uL RBC (3.80-5.40) m/uL Hgb (11.4-16.0) gm/dL Hct (34.0-46.0) % RDW (11.5-15.5) % Plt Count (150-450) k/uL ABG Total CO2 25 H (19-24) mmol/L Hemoglobin 6.5 L* (11.4-16.0) gm/dL Sodium (137-145) mmol/L Chloride (98-107) mmol/L BUN (7-17) mg/dL Creatinine (0.52-1.04) mg/dL Glucose (74-99) mg/dL POC Glucose (mg/dL) 184 H (70-110) mg/dL Calcium (8.4-10.2) mg/dL ALT (4-34) U/L Total Protein (6.3-8.2) g/dL Albumin (3.5-5.0) g/dL Procalcitonin (0.02-0.50) ng/mL Cortisol 29.9 H (3.1-22.4) UG/DL Crossmatch Blood Bank Comment 09/09/24 09/09/24 Range/Units 12:55 18:05 WBC 0.8 L* (3.8-10.6) k/uL RBC 2.50 L (3.80-5.40) m/uL Hgb 7.4 L (11.4-16.0) gm/dL Hct 22.3 L (34.0-46.0) % RDW 17.8 H (11.5-15.5) % Plt Count 51 L (150-450) k/uL ABG Total CO2 (19-24) mmol/L Hemoglobin (11.4-16.0) gm/dL Sodium (137-145) mmol/L Chloride (98-107) mmol/L BUN (7-17) mg/dL Creatinine (0.52-1.04) mg/dL Glucose (74-99) mg/dL POC Glucose (mg/dL) 174 H (70-110) mg/dL Calcium (8.4-10.2) mg/dL ALT (4-34) U/L Total Protein (6.3-8.2) g/dL Albumin (3.5-5.0) g/dL Procalcitonin (0.02-0.50) ng/mL Cortisol (3.1-22.4) UG/DL Crossmatch Blood Bank Comment
[2024-09-10 00:06] LABS: Glucose,Whole Blood 155 mg/dL (70-110)
[2024-09-10 05:39] LABS: ABG Base Excess -2.3 mmol/L; ABG HCO3 23 mmol/L (21-25); ABG Oxygen Saturation 94.6 % (94-97); ABG PCO2 41 mmHg (35-45); ABG PH 7.36 (7.35-7.45); ABG PO2 75 mmHg (83-108); ABG TCO2 24 mmol/L (19-24)
[2024-09-10 05:40] LABS: Allen Test Performed? no
[2024-09-10 06:03] LABS: Glucose,Whole Blood 117 mg/dL (70-110)
[2024-09-10 06:11] LABS: Anisocytosis Slight; HCT 24.3 % (34.0-46.0); Hypochromasia Slight; MCH 29.4 pg (25.0-35.0); MCV 88.9 fL (80.0-100.0); Mean Platelet Volume 11.5; Platelet Count 43 k/uL (150-450); RBC 2.73 m/uL (3.80-5.40); RDW 17.9 % (11.5-15.5)
[2024-09-10 06:13] LABS: WBC 0.6 k/uL (3.8-10.6)
[2024-09-10 06:41] LABS: African American GFR (CKD) 22 (>60 ml/min/1.73 sqM); Anion Gap 15 mmol/L; Calcium 8.2 mg/dL (8.4-10.2); Carbon Dioxide 21 mmol/L (22-30); Chloride 95 mmol/L (98-107); Glucose 141 mg/dL (74-99); Non-African American GFR(CKD) 19 (>60 ml/min/1.73 sqM); Sodium 131 mmol/L (137-145)
[2024-09-10 06:48] LABS: Blood Urea Nitrogen 104 mg/dL (7-17)
--- NOTE | 2024-09-10 07:10 | XR ---
EXAMINATION TYPE: XR chest 1V portable DATE OF EXAM: 09/10/2024 COMPARISON: 09/09/2024 CLINICAL INDICATION: Female, 64 years old with history of mechanical ventilation; , TECHNIQUE: XR chest 1V portable views of the chest. FINDINGS: PICC line, dialysis, ET tube, NG tube stable. Underlying COPD with diffuse interstitial pattern, bila teral consolidation and small effusion. Mild cardiomegaly. Degenerative change of the spine. IMPRESSION: 1. Diffuse pleural-parenchymal changes correlate for CHF versus diffuse pneumonia.. [facility], , 09/10/2024 7:08 AM
--- NOTE | 2024-09-10 08:30 | P.PN ---
Subjective Progress Note Date: 09/10/24 This is a 63-year-old female who presented to the emergency department with complaints of right lower extremity pain. Patient has a history of end-stage renal disease, as well as lung cancer and a recent diagnosis of multiple myeloma. Patient denies any trauma to leg. She reports she has had similar danial n in the past in her right lower extremity but workup has been normal. XR's showing arthritis on admission. Patient maintained on hemodialysis as an outpatient, is due for dialysis today. 08/23/2024 Patient seen and evaluated laying in bed this morning. Last night she developed SVT and was transferred to the cardiac floor. Cardiology has been consulted and the patient was started on a Cardizem drip. Patient denies any shortness of breath or chest pain at time of SVT last night. Patient had a CT of the pelvis yesterday which shows possible enlarged lymph node in the right inguinal area. 08/27/2024 Patient remains in the ICU on mechanical ventilation. She was positive for COVID last week. Patient still having tachycardia and tachypnea. 08/28/2024 Patient remains in the ICU on mechanical ventilation. Pulmonary has ordered a CT of the head and chest for today. Patient continues to have tachycardia and tachypnea. Hemoglobin was 6.7 yesterday and patient received 1 unit of PRBCs. 08/30/2024 Patient remains in the ICU and on mechanical ventilation. Her heart rate has improved. She will be getting dialysis today. 09/03/2024 Patient remains in the ICU on mechanical ventilation. Her heart rate has improved. Hemoglobin is stable. Dialysis scheduled for today. 09/04/2024 Patient remains in the ICU on mechanical ventilation. She had hemodialysis yesterday. Heart rate has trended up a little since yesterday. 09/06/2024 Patient remains in the ICU on mechanical ventilation. She received 1 unit blood yesterday. Nursing concern for Dilaudid dose and side effects, will add oral tramadol as needed due to codeine allergy. 09/10/2024 Patient remains in the ICU on mechanical ventilation. She has failed weaning trials. EEG was completed this morning. Plan is for a tracheostomy and PEG tube placement today. Objective - Vital Signs Vital signs: Vital Signs Temp 97.6 F 09/10/24 04:00 Pulse 101 H 09/10/24 07:00 Resp 25 H 09/10/24 07:00 BP 99/61 09/09/24 18:45 Pulse Ox 98 09/10/24 07:00 FiO2 50 09/10/24 07:38 Intake & Output 09/09/24 09/10/24 09/10/24 18:59 06:59 18:59 Intake Total 9952.238 7912.010 78 Output Total 270 630 0 Balance 1082.068 512.010 78 Intake: IV 256 376 23 .9NS KVO 220 240 20 .9NS Pressure Bag 36 36 3 Piperacillin-Tazobactam 3 100 .375 gm In Sodium Chloride 0.9% 100 ml @ 25 mls/hr IVPB Q12H [facility] Rx# :[id number] Intake, IV Titration 26.068 16.010 Amount Norepinephrine 8 mg In 23.084 16.010 Sodium Chloride 0.9% 250 ml @ 0.03 MCG/KG/MIN 3. 106 mls/hr IV .Q24H [facility] Rx#:[id number] Vasopressin 20 unit In 2.984 Sodium Chloride 0.9% 50 ml @ 0.03 UNITS/MIN 4.59 mls/hr IV .Q11H7M [facility] Rx# :[id number] Tube Feeding 550 660 55 Blood Product 310 Rc Irr As1 Unit 310 [id number] Other 210 90 Output: Urine 70 30 0 Stool 200 600 Other: Voiding Method Indwelling Catheter Indwelling Catheter # Bowel Movements 1 ABP, PAP, CO, CI - Last Documented Arterial Blood Pressure 107/62 - Exam intubated - Constitutional General appearance: Present: cooperative - Neck Neck: Absent: lymphadenopathy, rigidity - Respiratory Respiratory: bilateral: diminished - Cardiovascular Heart sounds: normal: S1, S2 - Gastrointestinal General gastrointestinal: Present: soft - Labs CBC & Chem 7: 09/10/24 06:00 09/10/24 06:00 Labs: Abnormal Lab Results - Last 24 Hours (Table) 09/07/24 09/08/24 09/09/24 Range/Units 13:40 03:15 07:37 WBC (3.8-10.6) k/uL RBC (3.80-5.40) m/uL Hgb (11.4-16.0) gm/dL Hct (34.0-46.0) % RDW (11.5-15.5) % Plt Count (150-450) k/uL ABG pO2 (83-108) mmHg Hemoglobin (11.4-16.0) gm/dL Sodium (137-145) mmol/L Chloride (98-107) mmol/L Carbon Dioxide (22-30) mmol/L BUN (7-17) mg/dL Creatinine (0.52-1.04) mg/dL Glucose (74-99) mg/dL POC Glucose (mg/dL) (70-110) mg/dL Calcium (8.4-10.2) mg/dL Procalcitonin 7.42 H (0.02-0.50) ng/mL Cortisol 29.9 H (3.1-22.4) UG/DL Crossmatch See Detail 09/09/24 09/09/24 09/09/24 Range/Units 11:47 12:55 18:05 WBC 0.8 L* (3.8-10.6) k/uL RBC 2.50 L (3.80-5.40) m/uL Hgb 7.4 L (11.4-16.0) gm/dL Hct 22.3 L (34.0-46.0) % RDW 17.8 H (11.5-15.5) % Plt Count 51 L (150-450) k/uL ABG pO2 (83-108) mmHg Hemoglobin (11.4-16.0) gm/dL Sodium (137-145) mmol/L Chloride (98-107) mmol/L Carbon Dioxide (22-30) mmol/L BUN (7-17) mg/dL Creatinine (0.52-1.04) mg/dL Glucose (74-99) mg/dL POC Glucose (mg/dL) 184 H 174 H (70-110) mg/dL Calcium (8.4-10.2) mg/dL Procalcitonin (0.02-0.50) ng/mL Cortisol (3.1-22.4) UG/DL Crossmatch 09/10/24 09/10/24 09/10/24 Range/Units 00:05 05:37 06:00 WBC 0.6 L* (3.8-10.6) k/uL RBC 2.73 L (3.80-5.40) m/uL Hgb 8.0 L (11.4-16.0) gm/dL Hct 24.3 L (34.0-46.0) % RDW 17.9 H (11.5-15.5) % Plt Count 43 L (150-450) k/uL ABG pO2 75 L (83-108) mmHg Hemoglobin 7.7 L (11.4-16.0) gm/dL Sodium (137-145) mmol/L Chloride (98-107) mmol/L Carbon Dioxide (22-30) mmol/L BUN (7-17) mg/dL Creatinine (0.52-1.04) mg/dL Glucose (74-99) mg/dL POC Glucose (mg/dL) 155 H (70-110) mg/dL Calcium (8.4-10.2) mg/dL Procalcitonin (0.02-0.50) ng/mL Cortisol (3.1-22.4) UG/DL Crossmatch 09/10/24 09/10/24 Range/Units 06:00 06:02 WBC (3.8-10.6) k/uL RBC (3.80-5.40) m/uL Hgb (11.4-16.0) gm/dL Hct (34.0-46.0) % RDW (11.5-15.5) % Plt Count (150-450) k/uL ABG pO2 (83-108) mmHg Hemoglobin (11.4-16.0) gm/dL Sodium 131 L (137-145) mmol/L Chloride 95 L (98-107) mmol/L Carbon Dioxide 21 L (22-30) mmol/L BUN 104 H* (7-17) mg/dL Creatinine 2.50 H (0.52-1.04) mg/dL Glucose 141 H (74-99) mg/dL POC Glucose (mg/dL) 117 H (70-110) mg/dL Calcium 8.2 L (8.4-10.2) mg/dL Procalcitonin (0.02-0.50) ng/mL Cortisol (3.1-22.4) UG/DL Crossmatch Assessment and Plan (1) Lung cancer Current Visit: Yes Status: Acute Code(s): C34.90 - MALIGNANT NEOPLASM OF UNSP PART OF UNSP BRONCHUS OR LUNG SNOMED Code(s): 558353342 (2) Multiple myeloma Current Visit: Yes Status: Acute Priority: High Code(s): C90.00 - MULTIPLE MYELOMA NOT HAVING ACHIEVED REMISSION SNOMED Code(s): 585474227 (3) Intractable pain Current Visit: Yes Status: Acute Priority: High Code(s): R52 - PAIN, UNSPECIFIED SNOMED Code(s): 47211631 (4) COPD (chronic obstructive pulmonary disease) Current Visit: Yes Status: Acute Code(s): J44.9 - CHRONIC OBSTRUCTIVE PULMONARY DISEASE, UNSPECIFIED SNOMED Code(s): 02534181 (5) End stage renal disease Current Visit: Yes Status: Acute Priority: High Code(s): N18.6 - END STAGE RENAL DISEASE SNOMED Code(s): 83870071 (6) COVID Current Visit: Yes Status: Acute Code(s): U07.1 - COVID-19 SNOMED Code(s): 223256905 Plan: Appreciate multiple consultants. Check CBC and CMP in the morning. Patient seen and evaluated by nurse practitioner, physician in agreement with plan.
[2024-09-10 09:32] LABS: Glucose,Whole Blood 154 mg/dL (70-110)
[2024-09-10 09:32] LABS: Glucose,Whole Blood 146 mg/dL (70-110)
--- NOTE | 2024-09-10 10:55 | P.PN ---
Subjective Progress Note Date: 09/10/24 Acute hypoxic respiratory failure, multifactorial This is a 63-year-old female patient with a known history of multiple myeloma receiving chemotherapy recently, suspected lung cancer with a PET positive right upper lobe 1.7 cm spiculated nodule, chronic obstructive pulmonary disease, chronic tobacco dependence, hypertension, hypothyroidism, end-stage renal disease receiving hemodialysis. She was admitted here on 08/21/2024 with complaints of right lower extremity pain. Been undergoing evaluation. Today on August 23, 2024 she had rapid response called on her twice for increasing shortness of breath and hypoxemia. She was subsequently transferred to the intensive care unit. She was placed on BiPAP 07/27 and 100% FiO2. She continued to do poorly and was subsequently intubated and placed on the mechanical ventilator. Currently on assist-control mode at a rate of 20, tidal volume 350, FiO2 100% and a PEEP of 5. She did undergo a left subclavian triple-lumen catheter placement and a right radial arterial line placement. Chest x-ray revealed satisfactory positions of the lines. Subtle scattered opacities may represent atypical pneumonia. Finding out today she is positive for COVID-19. Arterial blood gases post intubation revealed a PaO2 greater than 420, pCO2 of 60 and a pH of 7.28. FiO2 will be decreased accordingly. White count 8.5. Hemoglobin 8.7. Platelets 404. Sodium 129. Potassium 5.7. Bicarb 24. BUN 57. Creatinine 5.92. Glucose 82. She is sedated on propofol at 15 mcg/kg/min. The patient is seen today August 24, 2024 in follow-up in the intensive care unit. She remains intubated on the mechanical ventilator and assist-control mode at a rate of 20, tidal volume 350, FiO2 50% and a PEEP of 5. Morning blood gases revealed a PaO2 of 99. pCO2 48. pH 7.35. She is still requiring norepinephrine at 7 mcg/min. Cardizem drip at 5 mg an hour. Propofol at 40 mcg/kg/min. Lactated Ringer's at 100 mL/h. She is being nourished with vital HP at 10 mL/h with a goal of 46 mL/h. She remains on Symbicort, albuterol, Decadron. She is on Lovenox for DVT prophylaxis. Protonix for GI prophylaxis. Blood cultures now showing gram-positive cocci in clusters. Sputum culture pending. Vancomycin will be given x 1 until further cultures result. White count 6.6. Hemoglobin 7.0. Platelets 352. Sodium 132. Potassium 4.8. Bicarb 25. BUN 32. Creatinine 3.32. Glucose 108. The patient is seen today August 25, 2024 in follow-up in the intensive care unit. She remains intubated on the mechanical ventilator currently in settings of assist-control mode at a rate of 20, tidal volume 350, FiO2 50% and a PEEP of 5. Morning blood gases revealed a PaO2 of 91. pCO2 of 53 and a pH of 7.28. Chest x-ray reveals chronic and for somatic changes with mild cardiomegaly and patchy bilateral multifocal edema. No significant change. She remains on norepinephrine at 4 mcg/min. Cardizem drip is off. She was having sinus pauses yesterday. She has issues with intermittent atrial flutter. She is sedated on propofol at 40 mcg/kg/min. Lactated Ringer's at KVO. She is being nourished with vital HP at 10 mL/h. He received vancomycin x 1 for Staphylococcus epidermidis blood culture. Sputum culture revealed no growth. White count 12.9. Hemoglobin 7.5. Platelets 423. Sodium 133. Potassium 5.0. Bicarb 21. BUN 58. Creatinine 4.48. Glucose 134. She remains on Symbicort, albuterol, Decadron. Lovenox for DVT prophylaxis. Protonix for GI prophylaxis. The patient is seen today August 26, 2024 in follow-up in the intensive care unit. She remains intubated on mechanical ventilator and assist-control mode with a rate of 20, tidal valve 350, FiO2 50% and a PEEP of 5. Morning blood gases revealed a PaO2 of 90. pCO2 57 and a pH of 7.28. She did receive hemodialysis with 500 mL of fluid removed yesterday. She remains on norepinephrine at 1.7 mcg/min. Propofol at 50 mcg/kg/min. Lactated Ringer's at KVO. Vital HP at 10 mL an hour with a goal of 46 mL/h. She is continued with high residuals. May need Reglan if no improvement. She remains on albuterol, Symbicort, Decadron. Lovenox for DVT prophylaxis. Show chronic and for somatic changes and mild cardiomegaly with small to tiny left pleural effusion and patchy bilateral multifocal edema and/or acute infiltrates. No significant change. Blood culture was positive for Staphylococcus epidermidis. Sputum culture revealed no growth. White count 13.3. Hemoglobin 7.5. Platelets 364. Sodium 133. Potassium 5.1. Bicarb 24. BUN 41. Creatinine 2.91. Glucose 137. Currently in a +250 mL balance. On 08/27/2024, this patient is being seen for a follow-up. The patient remains intubated on the mechanical ventilator due to a combination of COPD and CHF exacerbation and COVID-19 infection. Noted the patient also has history of multiple myeloma receiving treatment on an outpatient basis. The patient has end-stage renal disease on hemodialysis and the patient also has history of hypertension hypothyroidism and during the course of the illness, the patient was also found to have a spiculated 1.7 cm right upper lobe lesion that was PET avid. This morning, the patient remains intubated on the mechanical ventilator. The patient is on assist-control mode at rate of 20, tidal volume of 350, FiO2 50% with a PEEP of 5. The patient remains sedated with propofol at 50 mc. The blood gases from today showed a pH of 7.26 with a pCO2 of 56 and pO2 of 70 and the chest x-ray shows stable perihilar and lower lobe pulmonary infiltrates. ET tube is around 5 cm above the danilo. The patient also has a dialysis permacath port in the right subclavian. Blood culture was positive for coagulase-negative staph and Staph epidermidis on 08/23/2024. Sputum culture was negative. The patient is currently on Decadron 8 mg p.o. daily Symbicort. No antibiotic coverage for now. is also on Lovenox for DVT prophylaxis at a dose of 30 mg subcu on a daily basis. Hemodynamically, the patient is requiring a low-dose norepinephrine for blood pressure support. Echocardiogram done on 08/23/2024 shows mild impairment of LV function with an EF of around 40 to 45% evidence of severe pulmonary hypertension and RV dilatation and estimated pulmonary artery pressures of around 56. Blood work from today shows a white cell count of 10.6, hemoglobin 7.2 and platelet count of 333. The sodium level is sodium is 135 at 135 with a potassium of 5.3, BUN 70 creatinine of 4.34. She is still on NE low dose at 0.04mc/kg/min. Her fluid balance is 1.4 L over the past 24 hours. Her last hemodialysis session was on 08/25/2024 with a total of 1 L of fluid was removed. She is on Vital HP at 30 cc. hr. Residuals are oin 250 cc range On 08/28/2023, the patient is being seen for a follow-up. Remains intubated on mechanical ventilator. Patient remains on propofol running at 45 mcg/kg/min. On today's evaluation, the patient is on assist-control mode with rate of 20, tidal volume of 450, FiO2 of 50% and the PEEP was brought up to 8 as the morning blood gases showed a pH of 7.38 with a pCO2 of 50 and pO2 of 66 and this was an FiO2 of 50%. The chest x-ray findings are essentially unchanged. The patient continues to have perihilar and lower lobe pulmonary infiltrates, patchy, slightly worse on the left and there is also some background cardiomegaly. The patient underwent hemodialysis yesterday. The patient is end-stage renal disease and she is currently on hemodialysis. She remains on norepinephrine which is running at 0.1 mcg/kg/min and the patient remains on vasopressin physio logic dose at 0.03 units. The patient has been having difficulties with atrial fibrillation since yesterday. Cardiology has been involved in the case and the patient was started on Cardizem drip and Cardizem drip is running at 5 mg an hour. Nevertheless, the patient continues to be in A-fib and she remains tachycardic. On a separate note, her hemoglobin is at 6.7. Still awaiting an appropriate manage for the packed RBC transfusion. The rest of the blood work shows a white cell count of 7.9, platelet count of 258, BUN is 48 with a creatinine of 2.8, sodium is at 132, chloride is 94 and a serum bicarb is at 27 at this point. Remains on Decadron 8 mg p.o. daily. Afebrile. Receiving ent eral feeding for nutritional support. On 08/29/2024, the patient is being seen for a follow-up. The patient remains intubated on the mechanical ventilator. This morning, the patient is on propofol running at 30 mcg/kg/min. The patient is on mechanical ventilator assist-control mode rate of 20, tidal volume of 450, FiO2 50% with a PEEP of 8. Blood gas from today showed a pH of 7.27 with a pCO2 of 53 and pO2 of 97. CAT scan of the brain was negative. CAT scan of the chest was also completed y esterday and it showed interstitial infiltrates bilaterally consistent with COVID-19 pneumonia. At the same time, the patient had areas of consolidation lung bases left more than right highly suspicious for a bacterial infection. Based on that, the patient was started on a combination of Zosyn and vancomycin. The patient received a unit of packed RBC and the hemoglobin today is at 7.3. The patient remains on low-dose norepinephrine running at 0.08 mcg/kg/min. IV fluids are currently at KVO. Receiving vital high-protein at rate of 40 cc an hour. The patient encountered atrial fibrillation and she is currently back in normal sinus rhythm. She remains on amiodarone at 0.5 mg/min. Last hemodialysis session was on 08/27/2024. The white cell count is at 4.7, hemoglobin 7.3 and a platelet count of 188. Sodium is at 131 with a potassium level of 5.1, BUN is 81 with a creatinine of 3.3. No other significant events overnight. The patient is currently afebrile. Overnight, the patient was having low-grade fever On 08/30/2024, the patient is being seen for a follow-up. The patient remains intubated on the mechanical ventilator. This morning, the patient is on propofol running at 15 mcg/kg/min. She is on assist-control mode of mechanical ventilation and the patient is on assist-control rate of 20, tidal volume of 450, FiO2 50% with a PEEP of 6. Blood gas showed pH of 7.26 with a pCO2 of 57 and pO2 of 78. Chest x-ray shows stable, probably slightly improved perihilar and lower lobe pulmonary filtration as the patient is currently on a combination of Zosyn and vancomycin. The patient is also to undergo hemodialysis today. Hemodynamically, the patient is in normal sinus rhythm. The patient is on no pressors. The patient is dealing vital high-protein at rate of 40 cc an hour. Blood work from today shows a white cell count of 3.7 with a hemoglobin 8.2 and a platelet count of 143. The sodium is at 130, potassium is at 5.9 with a chloride of 93 and a bicarb of 19. BUN is 119 with a potassium level of 3.8. The patient remains on Decadron. Rest of the medications are essentially unchanged. The patient was given a sedation holiday yesterday and the patient was able to arouse and follows some simple commands. Not ready for extubation yet. Hemoglobin has been stable. No signs of any bleeding. 08/31/2024, the patient is being seen for a follow-up. The patient remains on propofol running at 25 mcg/kg/min. Breathing seems to be labile and the patient continues to have a high minute ventilation of around 16 to 17 L/min. She remains on assist-control mode of mechanical ventilation at rate of 20, tidal volume of 500, FiO2 50% with a PEEP of 6. Blood gas showed a pH of 7.37 with a pCO2 of 45 and pO2 of 74. The chest x-ray findings are stable and the patient stable bilateral pulmonary filtrates. The patient underwent hemodialysis yesterday and a total of 650 cc of fluid was removed. Postdialysis, the patient was placed on norepinephrine which is currently running at 0.06 mcg/kg/min. The patient is in a normal sinus rhythm and she converted as of 3 AM this morning. She is on vital high-protein at rate of 40 cc an hour. Afebrile for now. White cell count is down to 1.7 with a hemoglobin 7.7 and a platelet count of 106. Sodium is at 133, potassium is at 4.7, bicarb is 25 with a BUN of 19 and creatinine of 2.6. Vancomycin trough level was 18. On 09/01/2024, the patient is being seen for a follow-up. Calm and comfortable, remains on propofol at 20 mcg/kg/min. This morning, her breathing is less labored and her minute ventilation is down to 12. She is on a pressure control mode of mechanical ventilation at rate of 20, pressure control of 20, I, 0.8, FiO2 of 50% with a PEEP of 6. Chest x-ray findings are unchanged. The patient is to undergo another session of hemodialysis today. Blood gas from today shows a pH of 7.39 with a pCO2 of 39 and pO2 of 101. Cardiac rhythm is sinus and the patient remains on a combination of oral amiodarone and metoprolol. The patient remains on vital high-protein at rate of 40 cc an hour. No pressors for now. The white cell count of 2.2 renal cell 0.5 and a platelet count of 92. Sodium is 134, BUN is 117 and a creatinine of 3.37. Potassium level is at 5.1. Serum bicarb is at 18. Remains on Zosyn and vancomycin. Sputum cultures have been negative. Blood cultures been negative. Remains on Lovenox 30 mg subcu for DVT prophylaxis. Remains on Decadron 8 mg p.o. on a daily basis. On 09/02/2024, the patient is being seen for a follow-up. The patient remains on propofol running at 30 mcg/kg/min. Calm and comfortable on pressure control mode of mechanical ventilation at rate of 20, pressure control of 20, FiO2 50% with a PEEP of 5. Blood gas showed a pH of 7.37 with a pCO2 of 34 and pO2 of 103. Chest x-ray findings are stable. Remains on low-dose norepinephrine runni ng at 0.1 mcg/kg/min. Hemodialysis performed yesterday a total of 650 cc of fluid was removed. She is in A-fib/flutter and the patient remains on oral amiodarone 400 mg p.o. twice a day and metoprolol 25 mg p.o. twice a day. She remains on Lovenox 30 mg subcu for DVT prophylaxis. She remains on Decadron. The blood work from today shows a white cell count of 1.8 with a hemoglobin of 7.5 and a platelet count of 77. Platelet counts are stable. BUN is 84 with a creatinine of 2.3 and a sodium levels at 132. Vancomycin level is at 17. Patient was evaluated today in the ICU on 09/03/2024 remains intubated and mechanically ventilated, she is on pressure control mode of mechanical ventilation with PI of 20, DI 0.8, rate 14 FiO2 40% and PEEP of 5 ABG showed a pO2 of 75 pCO2 37 pH of 7.38 hence no changes were made in vent settings. Patient requiring norepinephrine at 0.1 mcg/kg/min also on propofol 30 mcg/kg/min Cardizem 5 mg/h she is receiving vital HP at 40 cc/h IV fluid at KVO remains on Zosyn, and she is on hemodialysis today, when I saw the patient she was actually receiving hemodialysis the plan is to remove 1 L. Patient had COVID over 10 days ago, and she is out of precautions. Her peak airway pressures 26 Plateau pressure is 19. Chest x-ray continues to show multifocal airspace opacities. WBC count is 2.3 hemoglobin is 7 electrolytes are normal BUN is 113 creatinine 2.96 Patient seen today on 09/04 2024 patient, patient remains intubated and mechanically ventilated, he is on pressure control mode of mechanical ventilation with pressure control of 20 rate 18 TI 0.8 FiO2 40% and PEEP of 5 ABG showed a pO2 of 73 pCO2 39 pH of 7.37 hence no adjustments were made on the ventilator settings. Patient is still requiring norepinephrine at 0.1 mcg/kg/min propofol 25 mcg/kg/min she briefly she was on vasopressin last night which is now off, patient had episodes of bradycardia radiating down to 40 heart rate, and cardiology stopped her Cardizem. She will be given metoprolol and amiodarone as per cardiology on the case. Patient had a PICC line placed today, patient is on Decadron and I cut it down to 4 mg daily remains on Lovenox for DVT prophylaxis remains on GI prophylaxis. Patient is awake, opens her eyes, but does not seem to track or follow any instructions. Hence I plan to cut down the propofol further and continue to assess mental status on a daily basis. Obviously considering her mental status, she is not ready to be weaned or extubated. Chest x-ray continues to show multiple opacities in both lungs left more so than right WBC count today is low at 1.4 hemoglobin 6.4, patient will be transfused with at least 1 unit of packed RBCs for a hemoglobin of 6.4 Patient was reevaluated today on 09/05/2024, remains in the ICU, intubated and mechanically ventilated, she is on a pressure control mode of mechanical ventilation, pressure control of 20 rate of 18 TI 0.8 FiO2 40% and PEEP of 5 ABG is marginal with a pO2 of 68 pCO2 34 pH of 7.45. Patient is still requiring hemodialysis she is also requiring norepinephrine at 0.14 mcg/kg/min propofol at 10 mcg/kg/min receiving vital HP at 55/55 patient had a drop in her hemoglobin today down to 6 and she is receiving a unit of packed RBCs may require even more. WBC count is 1.6 hemoglobin 6 platelets are 70,000. Antibiotics whitley she is on acyclovir, vancomycin and Zosyn patient is requiring hemodialysis today. Neurologically the patient is about the same, she opens her eyes, does not tr ack, does not follow any instructions, hence will consider discontinuing propofol or cutting the dose further down to fully assess mental status off sedation completely. Chest x-ray continues to show COPD, and multifocal infiltrates left more so than right. Last sputum culture from 09/01 was nondia gnostic she had at 1 point positive blood cultures for Staph epidermidis blood cultures remain negative all along. Patient was seen today on 09/06/2024, patient remains in the ICU, intubated and mechanically ventilated. Remains on pressure control mode of mechanical ventilation, pressure control of 20 inspiratory time of 0.8 rate normal 18, FiO2 40% and PEEP of 5 ABG is marginal with a pO2 of 65 pCO2 of 35 pH of 7.45 FiO2 was increased from 40% to 45%. Otherwise no changes were made in her vent settings. Patient is still requiring norepinephrine for low blood pressure she is on norepinephrine at 0.09 mcg/kg/min propofol has been on hold since yesterday IV fluid at KVO vital AF at 55 cc/h remains on Zosyn Decadron and Lovenox. Patient continues to have poor mental status, she opens her eyes but does not follow any instructions according to the nurse yesterday she had 1 episode when she was following simple instructions intermittently, patient received a dose of Dilaudid today, and now she is unable to follow any instructions. Continues to have leukopenia with WBC of 1.2 hemoglobin is 7 patient received a unit of packed RBCs yesterday. Basic metabolic profile is relatively normal bicarb is normal BUN is 73 creatinine 2.09 intermittently receiving dialysis. Antibiotics and antiviral whitley, patient remains on acyclovir, remains on Zosyn, off vancomycin. Chest x-ray continues to show similar multifocal airspace opacities left more so than right. Patient was seen today on 09/07/2024, remains in the ICU, intubated and mechanically ventilated, patient remains on pressure mode of mechanical ventilation/pressure control with pressure control of 20 TI 0.8 FiO2 45% PEEP of 5 and rate 18. ABG is marginal with a pO2 of 66 pCO2 35 pH of 7.31, patient was placed on pressure support mode of mechanical ventilation with pressure support of 10 and CPAP, noted bicarb to be low, hence the patient was given an amp of bicarb. Patient is still requiring norepinephrine at 0.07 mcg/kg/min propofol has been on hold for the last 2 days patient will receive a unit of packed RBCs for low hemoglobin patient is on hemodialysis today, and she is still receiving Zosyn. Mentation whitley is about the same, patient opens eyes but does not follow any instructions and obviously she is not quite ready for weaning chest x-ray continues show bilateral patchy infiltrates. Because of her mental status, will continue to hold sedation, and again I have no plans to wean or extubate this patient at this point yet. WBC count is 1.1 hemoglobin 6.7 a unit of packed RBCs will be given electrolytes are normal bicarb is 21 anion gap is 14 BUN is 106 creatinine 2.54 patient is on dialysis today. Patient was seen today on 09/08/2024, patient remains in the ICU remains intubated on mechanically ventilated, patient is on assist-control rate of 24 tidal volume 500 FiO2 50% PEEP of 5 patient seems to be quite tachypneic and does not follow any instructions opens her eyes, seems to be working hard to breathe, adjustments were made on the ventilator with increasing the flow and increasing the rate to override her effort, continued to have tachypnea and almost struggling to breathe. Holding sedation for the last few days does not seem to be helping hence I am recommending that we sedate the patient and I would recommend that she goes back on propofol. From the overall picture, I believe the patient may eventually need tracheostomy and PEG tube placement. She is not going to be an easy wean, and tracheostomy and PEG tube placement will be an appropriate decision unless the family decides to go with comfort care measures. ABG today showed a pO2 of 70 pCO2 43 pH of 7.36. Yesterday p atient had almost 6 hours of pressure support and CPAP, she was noted to breathe hard, but maintained adequate saturation and maintained adequate pulmonary status. Again because of her mental status and a bit reluctant to extubate the patient. She will probably develop difficulty with clearing her secretions and will not be able to tolerate extubation. Hence most likely we may be heading towards tracheostomy and PEG tube placement. Neurology saw the patient for her mental status CT of the brain is negative. Continues to have leukopenia with WBC count of 1.2 hemoglobin is 7.5 platelets are also low at 55,000 patient has multiple myeloma ABG as noted earlier basic metabolic profile is normal bicarb is now 24 BUN is 82 creatinine 1.72 I do not believe patient will be dialyzed today. Seen today on 09/09/2024, patient remains in the ICU, intubated and mechanically ventilated. Patient remains encephalopathic hence I could not do much in the form of weaning trials on this patient, except she did go on pressure support and CPAP for quite some time, tolerated but because of her mental status and encephalopathy, could not proceed any further with weaning/extubation. She was placed back on mechanical ventilation AC mode, volume control, she is on assist- control rate of 24 tidal volume 500 FiO2 50% and PEEP of 5 ABG showed a pO2 of 84 pCO2 39 pH of 7.40. Last night the patient became hypotensive specially during her hemodialysis, and I recommended norepinephrine it was running at 0.04 mcg/kg/min vasopressin at 0.03, patient did well after her hemodialysis, and she is now off pressors. Hemoglobin this morning is 6.8, patient will receive a unit of packed RBCs at this is her fourth unit. Remains on Decadron, remains on Zosyn, remains on hemodialysis, and she remains encephalopathic, hence I am recommending tracheostomy and PEG tube placement, family apparently is not oppo sed to the idea of tracheostomy and PEG tube placement. Patient has been now intubated for 2 weeks, and she is not ready to wean and extubate, even if she is extubated, patient will not tolerate that for a long time considering her mental status/encephalopathy. She did well with pressure support and CPAP, but her mental status is still concerning. Continues to have leukopenia with WBC of 1.2 hemoglobin 6.8 electrolytes are normal BUN is 85 creatinine 1.66 patient did receive hemodialysis yesterday. Patient remains on bronchodilators, remains on Decadron 4 mg p.o. daily, remains on Zosyn, she is also receiving bicarb, and she is also on midodrine as well as amiodarone twice daily. Orally. 09/10/2024 patient seen and examined at bedside. Patient remains in the ICU intubated and mechanically ventilated. No acute events overnight. Ventilator settings at assist-control with a rate of 24, tidal volume 500 FiO2 50% with PEEP of 5. Patient on enteral feeding with a rate of 55. Patient remains on bronchodilators, on Decadron 4 mg p.o. daily, on Zosyn IVPB, midodrine and amiodarone 400 PO twice daily. Patient remains on propofol at a rate of 10 mcg/kg/min. Levophed and vasopressin have been held since midnight today. ABG today pO2 75, pCO2 41, pH 7.36. WBC very low at 0.6, hemoglobin 8, platelet count 43,000 sodium 131, potassium 5, chloride 95, bicarb 21, BUN 104, creatinine 2.5, glucose 141, calcium 8.2. Chest x-ray shows diffuse pleural- parenchymal changes to correlate CHF versus diffuse pneumonia, NG and ET tube in place. Review of Systems: Cannot be obtained GENERAL EXAM: non-toxic, intubated and mechanically ventilated HEAD: Normocephalic. Atraumatic EYES: Normal reaction of pupils, equal size. NOSE: Clear with pink turbinates. THROAT: Endotracheal tube and gastric tube are intact. NECK: No masses, no JVD. CHEST: No chest wall deformity. LUNGS: Crackles at the bases no rhonchi no wheezes CVS: S1 and S2 normal with no audible murmur, tachycardic. ABDOMEN: Soft nontender nondistended no rebound no guarding SKIN: No rashes CENTRAL NERVOUS SYSTEM: No major change in her mental status and she remains encephalopathic opens eyes does not follow any instructions EXTREMITIES: +2 bilateral upper and lower extremity edema. No clubbing, no cyanosis. Peripheral pulses are intact. Impression: -Active: Acute hypoxic respiratory failure, multifactorial Acute exacerbation of COPD Acute on chronic systolic congestive heart failure Acute COVID-19 pneumonia. Procal has decreased to 7.42. Recent sputum cultures and blood cultures on 09/01 have been negative. Sepsis and septic shock with hypotension secondary to pneumonia Status post PICC line placement on 09/04/2024 Acute metabolic encephalopathy Failure to wean because of encephalopathy -Chronic conditions: History of multiple myeloma has been on Revlimid, patient has chronic pancytopenia Right upper lobe spiculated nodule with positive PET scan needs outpatient workup it is 1.7 cm highly suspicious for bronchogenic carcinoma/adenocarcinoma Tobacco dependence syndrome End-stage renal disease, on hemodialysis Benign essential hypertension Chronic anemia Recommendations: Continue ventilatory support. Mechanical ventilator settings adjusted decrease tidal volume to 400 and increased rate to 26. Patient encephalopathic and unable to tolarate weaning trials Continue sedation/low-dose propofol Use pressors as needed for hemodynamic instability Continue hemodialysis Continue amiodarone 400 PO twice daily Continue sodium bicarbonate tablet 650 mg p.o. twice daily Acyclovir was discontinued per ID Discontinue Zosyn IVPB VTE prophylaxis held for now. Will resume after procedures Continue nutritional support/enteral feeding to goal rate Transfuse for hemoglobin below 7 Tracheostomy and PEG tube placement today per surgery GI prophylaxis: Protonix 40mg IV DVT prophylaxis: SCDs Prognosis remains guarded. Remains critically ill Objective - Vital Signs Vital signs: Vital Signs Temp 97.6 F 09/10/24 04:00 Pulse 101 H 09/10/24 07:00 Resp 25 H 09/10/24 07:00 BP 99/61 09/09/24 18:45 Pulse Ox 98 09/10/24 07:00 FiO2 50 09/10/24 04:00 Intake & Output 09/09/24 09/10/24 09/10/24 18:59 06:59 18:59 Intake Total 8434.193 1347.010 78 Output Total 270 630 0 Balance 1082.068 512.010 78 Intake: IV 256 376 23 .9NS KVO 220 240 20 .9NS Pressure Bag 36 36 3 Piperacillin-Tazobactam 3 100 .375 gm In Sodium Chloride 0.9% 100 ml @ 25 mls/hr IVPB Q12H [facility] Rx# :[id number] Intake, IV Titration 26.068 16.010 Amount Norepinephrine 8 mg In 23.084 16.010 Sodium Chloride 0.9% 250 ml @ 0.03 MCG/KG/MIN 3. 106 mls/hr IV .Q24H [facility] Rx#:[id number] Vasopressin 20 unit In 2.984 Sodium Chloride 0.9% 50 ml @ 0.03 UNITS/MIN 4.59 mls/hr IV .Q11H7M [facility] Rx# :[id number] Tube Feeding 550 660 55 Blood Product 310 Rc Irr As1 Unit 310 [id number] Other 210 90 Output: Urine 70 30 0 Stool 200 600 Other: Voiding Method Indwelling Catheter Indwelling Catheter # Bowel Movements 1 ABP, PAP, CO, CI - Last Documented Arterial Blood Pressure 107/62 - Labs CBC & Chem 7: 09/10/24 06:00 09/10/24 06:00 Labs: Abnormal Lab Results - Last 24 Hours (Table) 09/07/24 09/08/24 09/09/24 Range/Units 13:40 03:15 07:37 WBC (3.8-10.6) k/uL RBC (3.80-5.40) m/uL Hgb (11.4-16.0) gm/dL Hct (34.0-46.0) % RDW (11.5-15.5) % Plt Count (150-450) k/uL ABG pO2 (83-108) mmHg Hemoglobin (11.4-16.0) gm/dL Sodium (137-145) mmol/L Chloride (98-107) mmol/L Carbon Dioxide (22-30) mmol/L BUN (7-17) mg/dL Creatinine (0.52-1.04) mg/dL Glucose (74-99) mg/dL POC Glucose (mg/dL) (70-110) mg/dL Calcium (8.4-10.2) mg/dL Procalcitonin 7.42 H (0.02-0.50) ng/mL Cortisol 29.9 H (3.1-22.4) UG/DL Crossmatch See Detail 09/09/24 09/09/24 09/09/24 Range/Units 11:47 12:55 18:05 WBC 0.8 L* (3.8-10.6) k/uL RBC 2.50 L (3.80-5.40) m/uL Hgb 7.4 L (11.4-16.0) gm/dL Hct 22.3 L (34.0-46.0) % RDW 17.8 H (11.5-15.5) % Plt Count 51 L (150-450) k/uL ABG pO2 (83-108) mmHg Hemoglobin (11.4-16.0) gm/dL Sodium (137-145) mmol/L Chloride (98-107) mmol/L Carbon Dioxide (22-30) mmol/L BUN (7-17) mg/dL Creatinine (0.52-1.04) mg/dL Glucose (74-99) mg/dL POC Glucose (mg/dL) 184 H 174 H (70-110) mg/dL Calcium (8.4-10.2) mg/dL Procalcitonin (0.02-0.50) ng/mL Cortisol (3.1-22.4) UG/DL Crossmatch 09/10/24 09/10/24 09/10/24 Range/Units 00:05 05:37 06:00 WBC 0.6 L* (3.8-10.6) k/uL RBC 2.73 L (3.80-5.40) m/uL Hgb 8.0 L (11.4-16.0) gm/dL Hct 24.3 L (34.0-46.0) % RDW 17.9 H (11.5-15.5) % Plt Count 43 L (150-450) k/uL ABG pO2 75 L (83-108) mmHg Hemoglobin 7.7 L (11.4-16.0) gm/dL Sodium (137-145) mmol/L Chloride (98-107) mmol/L Carbon Dioxide (22-30) mmol/L BUN (7-17) mg/dL Creatinine (0.52-1.04) mg/dL Glucose (74-99) mg/dL POC Glucose (mg/dL) 155 H (70-110) mg/dL Calcium (8.4-10.2) mg/dL Procalcitonin (0.02-0.50) ng/mL Cortisol (3.1-22.4) UG/DL Crossmatch 09/10/24 09/10/24 Range/Units 06:00 06:02 WBC (3.8-10.6) k/uL RBC (3.80-5.40) m/uL Hgb (11.4-16.0) gm/dL Hct (34.0-46.0) % RDW (11.5-15.5) % Plt Count (150-450) k/uL ABG pO2 (83-108) mmHg Hemoglobin (11.4-16.0) gm/dL Sodium 131 L (137-145) mmol/L Chloride 95 L (98-107) mmol/L Carbon Dioxide 21 L (22-30) mmol/L BUN 104 H* (7-17) mg/dL Creatinine 2.50 H (0.52-1.04) mg/dL Glucose 141 H (74-99) mg/dL POC Glucose (mg/dL) 117 H (70-110) mg/dL Calcium 8.2 L (8.4-10.2) mg/dL Procalcitonin (0.02-0.50) ng/mL Cortisol (3.1-22.4) UG/DL Crossmatch
--- NOTE | 2024-09-10 11:26 | EEG ---
ELECTROENCEPHALOGRAM REPORT PREAMBLE: This is a 64-year-old female with altered mental status, rule out seizure. The patient has had history of multiple myeloma, on chemotherapy. CURRENT MEDICATIONS: 1. Zovirax. 2. Cordarone. 3. B12. 4. Dilaudid. 5. Reglan. 6. Norepinephrine. 7. Zosyn. 8. Propofol. 9. Ultram. EEG FINDINGS: This is a 21-channel digital EEG recorded with video component, utilizing 10/20 international system with referential and bipolar montages. Background consists of well-developed, moderately well regulated, mixed frequencies of 8 to 9 hertz alpha, intermixed with some theta and some 2 to 3 hertz delta activity seen in bihemispheric region. The background does not seem to be clearly reactive to eye opening or closing. Frequent frontally predominantly triphasic waves were seen. Different stages of sleep were not seen. No focal or generalized epileptiform activity was seen. IMPRESSION: This is an abnormal EEG due to background slowing of [id number] degree, and the presence of frequent triphasic waves. This is suggestive of generalized cerebral dysfunction as can be seen with toxic metabolic encephalopathy or related to diffuse structural brain abnormality. Clinical correlation is recommended. No epileptiform activity was seen. MMODL / IJN: [id number] / [facility]
[2024-09-10 11:57] LABS: Glucose,Whole Blood 112 mg/dL (70-110)
[2024-09-10] MEDS: ALBUTEROL NEBULIZED 2.5 MG/3 ML INHALATION SCH (12:00)
--- NOTE | 2024-09-10 13:22 | P.PN ---
Subjective Progress Note Date: 09/10/24 SURGICAL PROGRESS NOTE CHIEF COMPLAINT: Respiratory failure HISTORY OF PRESENT ILLNESS: Surgical service following in regards to tracheostomy and PEG tube placement today. Patient did receive hemodialysis morning and did not tolerate it. She became more hypotensive. They have given her IV fluids and have increased the Levophed. Afebrile. WBC 0.6 Hgb 8.0 platelets 43 sodium 131 potassium is 5.0 creatinine 2.50 PHYSICAL EXAM: VITAL SIGNS: Reviewed. GENERAL: Well-developed in no acute distress. HEENT: No sclera icterus. Extraocular movements grossly intact. Moist buccal mucosa. Head is atraumatic, normocephalic. ABDOMEN: Soft. Nondistended. Nontender. NEUROLOGIC: Alert and oriented. Cranial nerves II through XII grossly intact. ASSESSMENT: 1. Failure weaning from hypoxemic respiratory failure 2. Lung cancer 3. Multiple myeloma 4. End-stage renal disease dialysis dependent 5. Pancytopenia following chemotherapy 6. Right groin lymph node mass 7. Severe protein calorie malnutrition PLAN: -Patient tentatively scheduled for tracheostomy and PEG tube placement today with Dr. Bartlett -Platelet transfusion ordered for platelets of 43 -Continue to monitor -Tube feeds are on hold Physician Brand Strategy Manager note has been reviewed by physician. Signing provider agrees with the documented findings, assessment, and plan of care. Objective - Vital Signs Vital signs: Vital Signs Temp 97.2 F L 09/10/24 08:00 Pulse 101 H 09/10/24 11:00 Resp 30 H 09/10/24 11:00 BP 86/61 09/10/24 11:00 Pulse Ox 96 09/10/24 11:00 FiO2 50 09/10/24 08:00 Intake & Output 09/09/24 09/10/24 09/10/24 18:59 06:59 18:59 Intake Total 5344.653 2636.010 171.139 Output Total 270 630 45 Balance 1082.068 512.010 126.139 Intake: IV 256 376 115 .9NS KVO 220 240 100 .9NS Pressure Bag 36 36 15 Piperacillin-Tazobactam 3 100 .375 gm In Sodium Chloride 0.9% 100 ml @ 25 mls/hr IVPB Q12H [facility] Rx# :[id number] Intake, IV Titration 26.068 16.010 1.139 Amount Norepinephrine 8 mg In 23.084 16.010 1.139 Sodium Chloride 0.9% 250 ml @ 0.03 MCG/KG/MIN 3. 106 mls/hr IV .Q24H [facility] Rx#:[id number] Vasopressin 20 unit In 2.984 Sodium Chloride 0.9% 50 ml @ 0.03 UNITS/MIN 4.59 mls/hr IV .Q11H7M [facility] Rx# :[id number] Tube Feeding 550 660 55 Blood Product 310 Rc Irr As1 Unit 310 [id number] Other 210 90 0 Output: Urine 70 30 45 Stool 200 600 Other: Voiding Method Indwelling Catheter Indwelling Catheter Indwelling Catheter # Bowel Movements 1 ABP, PAP, CO, CI - Last Documented Arterial Blood Pressure 67/51 - Labs CBC & Chem 7: 09/10/24 06:00 09/10/24 06:00 Labs: Abnormal Lab Results - Last 24 Hours (Table) 09/04/24 09/04/24 09/09/24 Range/Units 23:27 23:28 07:37 WBC (3.8-10.6) k/uL RBC (3.80-5.40) m/uL Hgb (11.4-16.0) gm/dL Hct (34.0-46.0) % RDW (11.5-15.5) % Plt Count (150-450) k/uL ABG pO2 (83-108) mmHg Hemoglobin (11.4-16.0) gm/dL Sodium (137-145) mmol/L Chloride (98-107) mmol/L Carbon Dioxide (22-30) mmol/L BUN (7-17) mg/dL Creatinine (0.52-1.04) mg/dL Glucose (74-99) mg/dL POC Glucose (mg/dL) 154 H 146 H (70-110) mg/dL Calcium (8.4-10.2) mg/dL Cortisol 29.9 H (3.1-22.4) UG/DL 09/09/24 09/09/24 09/10/24 Range/Units 12:55 18:05 00:05 WBC 0.8 L* (3.8-10.6) k/uL RBC 2.50 L (3.80-5.40) m/uL Hgb 7.4 L (11.4-16.0) gm/dL Hct 22.3 L (34.0-46.0) % RDW 17.8 H (11.5-15.5) % Plt Count 51 L (150-450) k/uL ABG pO2 (83-108) mmHg Hemoglobin (11.4-16.0) gm/dL Sodium (137-145) mmol/L Chloride (98-107) mmol/L Carbon Dioxide (22-30) mmol/L BUN (7-17) mg/dL Creatinine (0.52-1.04) mg/dL Glucose (74-99) mg/dL POC Glucose (mg/dL) 174 H 155 H (70-110) mg/dL Calcium (8.4-10.2) mg/dL Cortisol (3.1-22.4) UG/DL 09/10/24 09/10/24 09/10/24 Range/Units 05:37 06:00 06:00 WBC 0.6 L* (3.8-10.6) k/uL RBC 2.73 L (3.80-5.40) m/uL Hgb 8.0 L (11.4-16.0) gm/dL Hct 24.3 L (34.0-46.0) % RDW 17.9 H (11.5-15.5) % Plt Count 43 L (150-450) k/uL ABG pO2 75 L (83-108) mmHg Hemoglobin 7.7 L (11.4-16.0) gm/dL Sodium 131 L (137-145) mmol/L Chloride 95 L (98-107) mmol/L Carbon Dioxide 21 L (22-30) mmol/L BUN 104 H* (7-17) mg/dL Creatinine 2.50 H (0.52-1.04) mg/dL Glucose 141 H (74-99) mg/dL POC Glucose (mg/dL) (70-110) mg/dL Calcium 8.2 L (8.4-10.2) mg/dL Cortisol (3.1-22.4) UG/DL 09/10/24 Range/Units 06:02 WBC (3.8-10.6) k/uL RBC (3.80-5.40) m/uL Hgb (11.4-16.0) gm/dL Hct (34.0-46.0) % RDW (11.5-15.5) % Plt Count (150-450) k/uL ABG pO2 (83-108) mmHg Hemoglobin (11.4-16.0) gm/dL Sodium (137-145) mmol/L Chloride (98-107) mmol/L Carbon Dioxide (22-30) mmol/L BUN (7-17) mg/dL Creatinine (0.52-1.04) mg/dL Glucose (74-99) mg/dL POC Glucose (mg/dL) 117 H (70-110) mg/dL Calcium (8.4-10.2) mg/dL Cortisol (3.1-22.4) UG/DL
--- NOTE | 2024-09-10 14:02 | PN ---
PROGRESS NOTE SUBJECTIVE: Jennifer is a 64-year-old lady with multiple comorbidities including multiple myeloma, end- stage renal disease, on hemodialysis, lung nodules, possible malignancy, who has features of mild dysplasia that we are involved in the care because of atrial fibrillation. She has anemia and is requiring blood transfusions. Hence, she is not a candidate for anticoagulant. OBJECTIVE: VITAL SIGNS: The patient's heart rate is around 105 to 110 beats per minute, blood pressure is 86/68, respiratory rate is 30. The patient is mechanically ventilated. CHEST: Reveals diminished air entry bilaterally with bilateral rhonchi. HEART: Reveals first and second heart sounds, irregular rhythm and a systolic murmur at the left lower sternal border. ABDOMEN: Soft. EXTREMITIES: Reveals bilateral 1+ pitting edema. LABORATORY DATA: Labs show a hemoglobin of 8, platelet count is 43, white cell count is 0.6, potassium is 5, BUN is 104, creatinine is 2.5. ASSESSMENT: Persistent atrial fibrillation. PLAN: We will continue the patient on metoprolol 25 t.i.d. for rate control. MMODL / IJN: [id number] /
--- NOTE | 2024-09-10 15:04 | P.PN ---
Subjective Patient is seen in follow-up for end-stage renal disease. She is maintained on hemodialysis on Tuesday schedule. Treatment cut short this morning as patient became hypotensive and required high-dose vasopressor support. Only 300 cc ultrafiltration done. Intubated. Scheduled for trach and PEG today. Vital signs -on vasopressor support. General: Resting in bed. HEENT: Intubated. LUNGS: Scattered rhonchi. HEART: Rate and Rhythm are regular. ABDOMEN: No distention. EXTREMITITES: 1+ edema. Objective - Vital Signs Vital signs: Vital Signs Temp 100.9 F H 09/10/24 14:30 Pulse 107 H 09/10/24 15:00 Resp 26 H 09/10/24 15:00 BP 128/73 09/10/24 15:00 Pulse Ox 94 L 09/10/24 15:00 FiO2 50 09/10/24 12:00 Intake & Output 09/09/24 09/10/24 09/10/24 18:59 06:59 18:59 Intake Total 7137.005 7776.010 235.376 Output Total 270 630 45 Balance 1082.068 512.010 190.376 Intake: IV 256 376 138 .9NS KVO 220 240 120 .9NS Pressure Bag 36 36 18 Piperacillin-Tazobactam 3 100 .375 gm In Sodium Chloride 0.9% 100 ml @ 25 mls/hr IVPB Q12H [facility] Rx# :[id number] Intake, IV Titration 26.068 16.010 42.376 Amount Norepinephrine 8 mg In 23.084 16.010 42.376 Sodium Chloride 0.9% 250 ml @ 0.03 MCG/KG/MIN 3. 106 mls/hr IV .Q24H [facility] Rx#:[id number] Vasopressin 20 unit In 2.984 Sodium Chloride 0.9% 50 ml @ 0.03 UNITS/MIN 4.59 mls/hr IV .Q11H7M [facility] Rx# :[id number] Tube Feeding 550 660 55 Blood Product 310 0 Platelet Pheresis Pas 0 Psoralen Unit [id number] Rc Irr As1 Unit 310 [id number] Other 210 90 0 Output: Urine 70 30 45 Stool 200 600 Other: Voiding Method Indwelling Catheter Indwelling Catheter Indwelling Catheter # Bowel Movements 1 ABP, PAP, CO, CI - Last Documented Arterial Blood Pressure 103/55 - Labs CBC & Chem 7: 09/10/24 06:00 09/10/24 06:00 Labs: Abnormal Lab Results - Last 24 Hours (Table) 09/04/24 09/04/24 09/09/24 Range/Units 23:27 23:28 18:05 WBC (3.8-10.6) k/uL RBC (3.80-5.40) m/uL Hgb (11.4-16.0) gm/dL Hct (34.0-46.0) % RDW (11.5-15.5) % Plt Count (150-450) k/uL ABG pO2 (83-108) mmHg Hemoglobin (11.4-16.0) gm/dL Sodium (137-145) mmol/L Chloride (98-107) mmol/L Carbon Dioxide (22-30) mmol/L BUN (7-17) mg/dL Creatinine (0.52-1.04) mg/dL Glucose (74-99) mg/dL POC Glucose (mg/dL) 154 H 146 H 174 H (70-110) mg/dL Calcium (8.4-10.2) mg/dL 09/10/24 09/10/24 09/10/24 Range/Units 00:05 05:37 06:00 WBC 0.6 L* (3.8-10.6) k/uL RBC 2.73 L (3.80-5.40) m/uL Hgb 8.0 L (11.4-16.0) gm/dL Hct 24.3 L (34.0-46.0) % RDW 17.9 H (11.5-15.5) % Plt Count 43 L (150-450) k/uL ABG pO2 75 L (83-108) mmHg Hemoglobin 7.7 L (11.4-16.0) gm/dL Sodium (137-145) mmol/L Chloride (98-107) mmol/L Carbon Dioxide (22-30) mmol/L BUN (7-17) mg/dL Creatinine (0.52-1.04) mg/dL Glucose (74-99) mg/dL POC Glucose (mg/dL) 155 H (70-110) mg/dL Calcium (8.4-10.2) mg/dL 01/09/10/24 09/10/24 Range/Units 06:00 06:02 11:56 WBC (3.8-10.6) k/uL RBC (3.80-5.40) m/uL Hgb (11.4-16.0) gm/dL Hct (34.0-46.0) % RDW (11.5-15.5) % Plt Count (150-450) k/uL ABG pO2 (83-108) mmHg Hemoglobin (11.4-16.0) gm/dL Sodium 131 L (137-145) mmol/L Chloride 95 L (98-107) mmol/L Carbon Dioxide 21 L (22-30) mmol/L BUN 104 H* (7-17) mg/dL Creatinine 2.50 H (0.52-1.04) mg/dL Glucose 141 H (74-99) mg/dL POC Glucose (mg/dL) 117 H 112 H (70-110) mg/dL Calcium 8.2 L (8.4-10.2) mg/dL Assessment and Plan Plan: Assessment: 1. End-stage renal disease maintained on hemodialysis on Tuesday schedule via permacath. 2. Acute COVID-19 infection. 3. Acute hypoxic respiratory failure. 4. A-fib with RVR being followed by cardiology. 5. Staph epi bacteremia. Possibly contamination. Repeat cultures have been negative. 6. Right leg pain. Questionable groin mass versus enlarged lymph node versus joint effusion. Possible MRI to further evaluate down the road. 7. Multiple myeloma. Also noted to have pulmonary nodule. Oncology following. Treatment currently on hold due to acute infection. 8. Anemia of chronic kidney disease and also component of underlying multiple myeloma. Status post IV DDAVP and blood transfusions this admission. 9. Volume overload. 10. Hyperkalemia secondary to chronic kidney disease. Questionable GI bleed. Improved. 11. Chronic kidney disease mineral bone disease. Phosphorus level 7.9 dated September 03, 2024. On PhosLo. Plan: Next hemodialysis Tuesday. Trach and PEG today. Maintain midodrine. Wean vasopressors. Prognosis guarded.
[2024-09-10 16:26] VITALS: BMI 24.0
--- NOTE | 2024-09-10 16:41 | P.PN ---
Subjective Progress Note Date: 09/10/24 Patient was initially seen by Dr. Oliver Wells, then followed up over the weekend by Dr. Vance. Please refer to their notes for details. Today I am starting the service, and seeing for the first time. Patient is a 64-year-old female with altered mental status. Feels like from toxic metabolic encephalopathy and hypoxia. Patient has COVID-19 pneumonia. Patient was seen for a follow-up. Patient is intubated, on propofol 10 mcg/kg's per minute. Also running norepinephrine at 0.7 mcg/kg/min. Patient's vitals are stable with blood pressure 115/68 per art line. Patient minimally responsive with facial grimacing with painful stimuli, tracking a little bit but not consistent. Some of the workup during this hospital visit consisted of: Patient was febrile on 08/28/2024 of Tmax of 102.1F patient has been afebrile since 09/03/2024 Patient has leukopenia on presentation was 5.5 and currently is 1.1 thousand Also has anemia as low as 6.0 also has thrombocytopenia Sodium is 131 Creatinine is 2.54 and is trending down and it was as high as 8.27 on presentation. Urine is 106 Serum glucose is between 120s to 229 Calcium is 8.0, phosphorus is 8.2 AST of 23 ALT is 39 TSH is 0.428 Free T4 is 1.48 SARS COVID 2 PCR is detected X-ray is reported as similar multifocal airspace opacity. CT of the head is reported as no acute bleed or mass effect. No significant interval change compared to the prior study. I personally Reviewed the CT and agree with the report. Objective - Vital Signs Vital signs: Vital Signs Temp 97 F L 09/10/24 15:32 Pulse 88 09/10/24 15:32 Resp 31 H 09/10/24 15:32 BP 72/45 09/10/24 15:32 Pulse Ox 94 L 09/10/24 15:00 FiO2 50 09/10/24 12:00 Intake & Output 09/09/24 09/10/24 09/10/24 18:59 06:59 18:59 Intake Total 8430.960 2114.010 919.300 Output Total 915 555 1247 Balance 1082.068 512.010 -230.700 Intake: IV 256 376 207 .9NS KVO 220 240 180 .9NS Pressure Bag 36 36 27 Piperacillin-Tazobactam 3 100 .375 gm In Sodium Chloride 0.9% 100 ml @ 25 mls/hr IVPB Q12H [facility] Rx# :[id number] Intake, IV Titration 26.068 16.010 57.300 Amount Norepinephrine 8 mg In 23.084 16.010 57.300 Sodium Chloride 0.9% 250 ml @ 0.03 MCG/KG/MIN 3. 106 mls/hr IV .Q24H [facility] Rx#:[id number] Vasopressin 20 unit In 2.984 Sodium Chloride 0.9% 50 ml @ 0.03 UNITS/MIN 4.59 mls/hr IV .Q11H7M [facility] Rx# :[id number] Tube Feeding 550 660 55 Blood Product 310 0 Platelet Pheresis Pas 0 Psoralen Unit [id number] Rc Irr As1 Unit 310 [id number] Hemodialysis 600 Other 210 90 0 Output: Urine 70 30 48 Stool 200 600 Hemodialysis 851 Hemodialysis Net Amount 251 Other: Voiding Method Indwelling Catheter Indwelling Catheter Indwelling Catheter # Bowel Movements 1 ABP, PAP, CO, CI - Last Documented Arterial Blood Pressure 133/71 - Exam Patient is intubated, sedated with propofol 10 mcg/kg/min. Also on Levophed, as after dialysis, her blood pressure tanked down after dialysis. Her pupils are equal, round and reacting. Oculocephalics are inhibited. Patient is cachectic looking. She only 1 time turning her eyes towards the examiner on the left side, but very minimal on the right. Gaze is midline. No obvious seizure-like activity. Face appears symmetric. Patient has facial grimacing with painful stimuli, does not squeeze hands or moves or wiggle toes. Reflexes are absent. Patient has positive peripheral edema. - Labs CBC & Chem 7: 09/10/24 06:00 09/10/24 06:00 Labs: Abnormal Lab Results - Last 24 Hours (Table) 09/04/24 09/04/24 09/09/24 Range/Units 23:27 23:28 18:05 WBC (3.8-10.6) k/uL RBC (3.80-5.40) m/uL Hgb (11.4-16.0) gm/dL Hct (34.0-46.0) % RDW (11.5-15.5) % Plt Count (150-450) k/uL ABG pO2 (83-108) mmHg Hemoglobin (11.4-16.0) gm/dL Sodium (137-145) mmol/L Chloride (98-107) mmol/L Carbon Dioxide (22-30) mmol/L BUN (7-17) mg/dL Creatinine (0.52-1.04) mg/dL Glucose (74-99) mg/dL POC Glucose (mg/dL) 154 H 146 H 174 H (70-110) mg/dL Calcium (8.4-10.2) mg/dL 09/10/24 09/10/24 09/10/24 Range/Units 00:05 05:37 06:00 WBC 0.6 L* (3.8-10.6) k/uL RBC 2.73 L (3.80-5.40) m/uL Hgb 8.0 L (11.4-16.0) gm/dL Hct 24.3 L (34.0-46.0) % RDW 17.9 H (11.5-15.5) % Plt Count 43 L (150-450) k/uL ABG pO2 75 L (83-108) mmHg Hemoglobin 7.7 L (11.4-16.0) gm/dL Sodium (137-145) mmol/L Chloride (98-107) mmol/L Carbon Dioxide (22-30) mmol/L BUN (7-17) mg/dL Creatinine (0.52-1.04) mg/dL Glucose (74-99) mg/dL POC Glucose (mg/dL) 155 H (70-110) mg/dL Calcium (8.4-10.2) mg/dL 09/10/24 09/10/24 09/10/24 Range/Units 06:00 06:02 11:56 WBC (3.8-10.6) k/uL RBC (3.80-5.40) m/uL Hgb (11.4-16.0) gm/dL Hct (34.0-46.0) % RDW (11.5-15.5) % Plt Count (150-450) k/uL ABG pO2 (83-108) mmHg Hemoglobin (11.4-16.0) gm/dL Sodium 131 L (137-145) mmol/L Chloride 95 L (98-107) mmol/L Carbon Dioxide 21 L (22-30) mmol/L BUN 104 H* (7-17) mg/dL Creatinine 2.50 H (0.52-1.04) mg/dL Glucose 141 H (74-99) mg/dL POC Glucose (mg/dL) 117 H 112 H (70-110) mg/dL Calcium 8.2 L (8.4-10.2) mg/dL Assessment and Plan Assessment: Altered mental status due to multifactorial: Toxic metabolic encephalopathy, hypoxic due to acute COVID-19 pneumonia, acute on chronic kidney injury. Initial CT of the head on 08/28/23 is unremarkable for acute process. Acute COVID-19 infection Acute COPD exacerbation Acute hypoxic respiratory failure A-fib with RVR Pancytopenia Right leg pain and there is a concern for mass versus enlarged lymph node versus joint effusion History of multiple myeloma End-stage renal disease on dialysis Right upper lobe suspected nodule with positive PET scan suspicious for bronchogenic carcinoma/adenocarcinoma Tobacco dependence Plan: 1. EEG was abnormal due to background slowing of mild to moderate degree, and presence of frequent triphasic waves. This is suggestive of generalized cerebral dysfunction as can be seen with toxic metabolic encephalopathy. Clinical correlation is recommended. No epileptiform activity was seen. 2. Continue medical management per primary team 3. Attempt weaning from propofol again, to further assess mental status. Avoid sedative hypnotics. 4. Consider hospice or palliative care consultation. Family considering tracheostomy and PEG placement. 5. B12 1292, ammonia 14, both normal. 6. Oncology and nephrology team on board. Neurology will follow sporadically. Discussed with patient's nurse in detail.
[2024-09-10 17:58] LABS: Glucose,Whole Blood 135 mg/dL (70-110)
[2024-09-10 20:47] LABS: Glucose,Whole Blood 140 mg/dL (70-110)
[2024-09-10 23:43] LABS: Glucose,Whole Blood 123 mg/dL (70-110)
[2024-09-11 05:18] LABS: ABG HCO3 22 mmol/L (21-25); ABG Oxygen Saturation 95.3 % (94-97); ABG PCO2 46 mmHg (35-45); ABG PH 7.28 (7.35-7.45); ABG PO2 83 mmHg (83-108); ABG TCO2 23 mmol/L (19-24)
[2024-09-11 05:19] LABS: Allen Test Performed? no
[2024-09-11 05:41] LABS: Anisocytosis Slight; HCT 25.3 % (34.0-46.0); HGB 8.2 gm/dL (11.4-16.0); Hypochromasia Slight; MCHC 32.3 g/dL (31.0-37.0); MCV 89.6 fL (80.0-100.0); Mean Platelet Volume 11.3; RBC 2.82 m/uL (3.80-5.40); RDW 17.9 % (11.5-15.5)
[2024-09-11 06:07] LABS: Glucose,Whole Blood 92 mg/dL (70-110)
[2024-09-11 06:59] LABS: WBC 0.7 k/uL (3.8-10.6)
[2024-09-11 07:00] LABS: Platelet Count 48 k/uL (150-450)
--- NOTE | 2024-09-11 07:10 | XR ---
EXAMINATION TYPE: XR chest 1V portable DATE OF EXAM: 09/11/2024 COMPARISON: 09/10/2024 CLINICAL INDICATION: Female, 64 years old with history of mechanical ventilation; , TECHNIQUE: XR chest 1V portable views of the chest. FINDINGS: PICC line, dialysis, ET tube, NG tube stable. Underlying COPD with diffuse interstitial pat tern, bilateral consolidation and small effusion. Mild cardiomegaly. Degenerative change of the spine . IMPRESSION: 1. Diffuse pleural-parenchymal changes correlate for CHF versus diffuse pneumonia. [facility], , 09/11/2024 7:08 AM
[2024-09-11 07:16] LABS: ALT 43 U/L (4-34); AST 13 U/L (14-36); African American GFR (CKD) 27 (>60 ml/min/1.73 sqM); Albumin 2.3 g/dL (3.5-5.0); Alkaline Phosphatase 70 U/L (38-126); Anion Gap 15 mmol/L; Blood Urea Nitrogen 87 mg/dL (7-17); Calcium 8.3 mg/dL (8.4-10.2); Carbon Dioxide 22 mmol/L (22-30); Chloride 95 mmol/L (98-107); Glucose 115 mg/dL (74-99); Non-African American GFR(CKD) 23 (>60 ml/min/1.73 sqM); Potassium 4.9 mmol/L (3.5-5.1); Sodium 132 mmol/L (137-145); Total Protein 5.6 g/dL (6.3-8.2)
--- NOTE | 2024-09-11 08:22 | P.PN ---
Subjective Progress Note Date: 09/11/24 This is a 63-year-old female who presented to the emergency department with complaints of right lower extremity pain. Patient has a history of end-stage renal disease, as well as lung cancer and a recent diagnosis of multiple myeloma. Patient denies any trauma to leg. She reports she has had similar danial n in the past in her right lower extremity but workup has been normal. XR's showing arthritis on admission. Patient maintained on hemodialysis as an outpatient, is due for dialysis today. 08/23/2024 Patient seen and evaluated laying in bed this morning. Last night she developed SVT and was transferred to the cardiac floor. Cardiology has been consulted and the patient was started on a Cardizem drip. Patient denies any shortness of breath or chest pain at time of SVT last night. Patient had a CT of the pelvis yesterday which shows possible enlarged lymph node in the right inguinal area. 08/27/2024 Patient remains in the ICU on mechanical ventilation. She was positive for COVID last week. Patient still having tachycardia and tachypnea. 08/28/2024 Patient remains in the ICU on mechanical ventilation. Pulmonary has ordered a CT of the head and chest for today. Patient continues to have tachycardia and tachypnea. Hemoglobin was 6.7 yesterday and patient received 1 unit of PRBCs. 08/30/2024 Patient remains in the ICU and on mechanical ventilation. Her heart rate has improved. She will be getting dialysis today. 09/03/2024 Patient remains in the ICU on mechanical ventilation. Her heart rate has improved. Hemoglobin is stable. Dialysis scheduled for today. 09/04/2024 Patient remains in the ICU on mechanical ventilation. She had hemodialysis yesterday. Heart rate has trended up a little since yesterday. 09/06/2024 Patient remains in the ICU on mechanical ventilation. She received 1 unit blood yesterday. Nursing concern for Dilaudid dose and side effects, will add oral tramadol as needed due to codeine allergy. 09/10/2024 Patient remains in the ICU on mechanical ventilation. She has failed weaning trials. EEG was completed this morning. Plan is for a tracheostomy and PEG tube placement today. 09/11/2024 Patient continues to remain in the ICU on mechanical ventilation. EEG was abnormal yesterday showing background slowing of mild to moderate degree, and presence of frequent triphasic waves. Suggestive of generalized cerebral dysfunction as can be seen with toxic metabolic encephalopathy. Patient did not have a tracheostomy and PEG tube placement yesterday. Neurology is recommending comfort care or hospice at this time. Objective - Vital Signs Vital signs: Vital Signs Temp 97.4 F L 09/11/24 04:00 Pulse 98 09/11/24 07:00 Resp 26 H 09/11/24 07:00 BP 102/66 09/10/24 17:00 Pulse Ox 95 09/11/24 07:00 FiO2 50 09/11/24 07:57 Intake & Output 09/10/24 09/11/24 09/11/24 18:59 06:59 18:59 Intake Total 1359.864 612.045 23 Output Total 1150 0 0 Balance 209.864 612.045 23 Weight 71.8 kg 73.8 kg Intake: IV 276 253 23 .9NS KVO 240 220 20 .9NS Pressure Bag 36 33 3 Intake, IV Titration 73.864 109.045 Amount Norepinephrine 8 mg In 73.864 109.045 Sodium Chloride 0.9% 250 ml @ 0.03 MCG/KG/MIN 3. 106 mls/hr IV .Q24H [facility] Rx#:[id number] Tube Feeding 55 220 Blood Product 325 Platelet Pheresis Pas 325 Psoralen Unit [id number] Hemodialysis 600 Other 30 30 Output: Urine 48 0 0 Hemodialysis 851 Hemodialysis Net Amount 251 Other: Voiding Method Indwelling Catheter Indwelling Catheter ABP, PAP, CO, CI - Last Documented Arterial Blood Pressure 87/50 - Exam intubated - Constitutional General appearance: Present: no acute distress - EENT Eyes: Present: PERRLA - Neck Neck: Absent: lymphadenopathy, rigidity - Respiratory Respiratory: bilateral: diminished - Cardiovascular Heart sounds: normal: S1, S2 - Gastrointestinal General gastrointestinal: Present: soft - Integumentary Integumentary: Present: normal, normal turgor - Labs CBC & Chem 7: 09/11/24 06:00 09/11/24 06:00 Labs: Abnormal Lab Results - Last 24 Hours (Table) 09/04/24 09/04/24 09/10/24 Range/Units 23:27 23:28 11:56 WBC (3.8-10.6) k/uL RBC (3.80-5.40) m/uL Hgb (11.4-16.0) gm/dL Hct (34.0-46.0) % RDW (11.5-15.5) % ABG pH (7.35-7.45) ABG pCO2 (35-45) mmHg Hemoglobin (11.4-16.0) gm/dL Sodium (137-145) mmol/L Chloride (98-107) mmol/L BUN (7-17) mg/dL Creatinine (0.52-1.04) mg/dL Glucose (74-99) mg/dL POC Glucose (mg/dL) 154 H 146 H 112 H (70-110) mg/dL Calcium (8.4-10.2) mg/dL AST (14-36) U/L ALT (4-34) U/L Total Protein (6.3-8.2) g/dL Albumin (3.5-5.0) g/dL 09/10/24 09/10/24 09/10/24 Range/Units 17:55 20:35 23:41 WBC (3.8-10.6) k/uL RBC (3.80-5.40) m/uL Hgb (11.4-16.0) gm/dL Hct (34.0-46.0) % RDW (11.5-15.5) % ABG pH (7.35-7.45) ABG pCO2 (35-45) mmHg Hemoglobin (11.4-16.0) gm/dL Sodium (137-145) mmol/L Chloride (98-107) mmol/L BUN (7-17) mg/dL Creatinine (0.52-1.04) mg/dL Glucose (74-99) mg/dL POC Glucose (mg/dL) 135 H 140 H 123 H (70-110) mg/dL Calcium (8.4-10.2) mg/dL AST (14-36) U/L ALT (4-34) U/L Total Protein (6.3-8.2) g/dL Albumin (3.5-5.0) g/dL 09/11/24 09/11/24 09/11/24 Range/Units 05:15 06:00 06:00 WBC 0.7 L* (3.8-10.6) k/uL RBC 2.82 L (3.80-5.40) m/uL Hgb 8.2 L (11.4-16.0) gm/dL Hct 25.3 L (34.0-46.0) % RDW 17.9 H (11.5-15.5) % ABG pH 7.28 L (7.35-7.45) ABG pCO2 46 H (35-45) mmHg Hemoglobin 7.6 L (11.4-16.0) gm/dL Sodium 132 L (137-145) mmol/L Chloride 95 L (98-107) mmol/L BUN 87 H (7-17) mg/dL Creatinine 2.17 H (0.52-1.04) mg/dL Glucose 115 H (74-99) mg/dL POC Glucose (mg/dL) (70-110) mg/dL Calcium 8.3 L (8.4-10.2) mg/dL AST 13 L (14-36) U/L ALT 43 H (4-34) U/L Total Protein 5.6 L (6.3-8.2) g/dL Albumin 2.3 L (3.5-5.0) g/dL Assessment and Plan (1) Lung cancer Current Visit: Yes Status: Acute Code(s): C34.90 - MALIGNANT NEOPLASM OF UNSP PART OF UNSP BRONCHUS OR LUNG SNOMED Code(s): 112876107 (2) Multiple myeloma Current Visit: Yes Status: Acute Priority: High Code(s): C90.00 - MULTIPLE MYELOMA NOT HAVING ACHIEVED REMISSION SNOMED Code(s): 410823126 (3) Intractable pain Current Visit: Yes Status: Acute Priority: High Code(s): R52 - PAIN, UNSPECIFIED SNOMED Code(s): 73204824 (4) COPD (chronic obstructive pulmonary disease) Current Visit: Yes Status: Acute Code(s): J44.9 - CHRONIC OBSTRUCTIVE PULMONARY DISEASE, UNSPECIFIED SNOMED Code(s): 67154225 (5) End stage renal disease Current Visit: Yes Status: Acute Priority: High Code(s): N18.6 - END STAGE RENAL DISEASE SNOMED Code(s): 15842127 (6) COVID Current Visit: Yes Status: Acute Code(s): U07.1 - COVID-19 SNOMED Code(s): 159216924 (7) Metabolic encephalopathy Current Visit: Yes Status: Acute Code(s): G93.41 - METABOLIC ENCEPHALOPATHY SNOMED Code(s): 53616987 Plan: Appreciate multiple consultants. Check CBC and CMP in the morning. Patient seen and evaluated by nurse practitioner, physician in agreement with plan.
--- NOTE | 2024-09-11 10:43 | P.PN ---
Subjective Progress Note Date: 09/11/24 Acute hypoxic respiratory failure, multifactorial This is a 63-year-old female patient with a known history of multiple myeloma receiving chemotherapy recently, suspected lung cancer with a PET positive right upper lobe 1.7 cm spiculated nodule, chronic obstructive pulmonary disease, chronic tobacco dependence, hypertension, hypothyroidism, end-stage renal disease receiving hemodialysis. She was admitted here on 08/21/2024 with complaints of right lower extremity pain. Been undergoing evaluation. Today on August 23, 2024 she had rapid response called on her twice for increasing shortness of breath and hypoxemia. She was subsequently transferred to the intensive care unit. She was placed on BiPAP 07/27 and 100% FiO2. She continued to do poorly and was subsequently intubated and placed on the mechanical ventilator. Currently on assist-control mode at a rate of 20, tidal volume 350, FiO2 100% and a PEEP of 5. She did undergo a left subclavian triple-lumen catheter placement and a right radial arterial line placement. Chest x-ray revealed satisfactory positions of the lines. Subtle scattered opacities may represent atypical pneumonia. Finding out today she is positive for COVID-19. Arterial blood gases post intubation revealed a PaO2 greater than 420, pCO2 of 60 and a pH of 7.28. FiO2 will be decreased accordingly. White count 8.5. Hemoglobin 8.7. Platelets 404. Sodium 129. Potassium 5.7. Bicarb 24. BUN 57. Creatinine 5.92. Glucose 82. She is sedated on propofol at 15 mcg/kg/min. The patient is seen today August 24, 2024 in follow-up in the intensive care unit. She remains intubated on the mechanical ventilator and assist-control mode at a rate of 20, tidal volume 350, FiO2 50% and a PEEP of 5. Morning blood gases revealed a PaO2 of 99. pCO2 48. pH 7.35. She is still requiring norepinephrine at 7 mcg/min. Cardizem drip at 5 mg an hour. Propofol at 40 mcg/kg/min. Lactated Ringer's at 100 mL/h. She is being nourished with vital HP at 10 mL/h with a goal of 46 mL/h. She remains on Symbicort, albuterol, Decadron. She is on Lovenox for DVT prophylaxis. Protonix for GI prophylaxis. Blood cultures now showing gram-positive cocci in clusters. Sputum culture pending. Vancomycin will be given x 1 until further cultures result. White count 6.6. Hemoglobin 7.0. Platelets 352. Sodium 132. Potassium 4.8. Bicarb 25. BUN 32. Creatinine 3.32. Glucose 108. The patient is seen today August 25, 2024 in follow-up in the intensive care unit. She remains intubated on the mechanical ventilator currently in settings of assist-control mode at a rate of 20, tidal volume 350, FiO2 50% and a PEEP of 5. Morning blood gases revealed a PaO2 of 91. pCO2 of 53 and a pH of 7.28. Chest x-ray reveals chronic and for somatic changes with mild cardiomegaly and patchy bilateral multifocal edema. No significant change. She remains on norepinephrine at 4 mcg/min. Cardizem drip is off. She was having sinus pauses yesterday. She has issues with intermittent atrial flutter. She is sedated on propofol at 40 mcg/kg/min. Lactated Ringer's at KVO. She is being nourished with vital HP at 10 mL/h. He received vancomycin x 1 for Staphylococcus epidermidis blood culture. Sputum culture revealed no growth. White count 12.9. Hemoglobin 7.5. Platelets 423. Sodium 133. Potassium 5.0. Bicarb 21. BUN 58. Creatinine 4.48. Glucose 134. She remains on Symbicort, albuterol, Decadron. Lovenox for DVT prophylaxis. Protonix for GI prophylaxis. The patient is seen today August 26, 2024 in follow-up in the intensive care unit. She remains intubated on mechanical ventilator and assist-control mode with a rate of 20, tidal valve 350, FiO2 50% and a PEEP of 5. Morning blood gases revealed a PaO2 of 90. pCO2 57 and a pH of 7.28. She did receive hemodialysis with 500 mL of fluid removed yesterday. She remains on norepinephrine at 1.7 mcg/min. Propofol at 50 mcg/kg/min. Lactated Ringer's at KVO. Vital HP at 10 mL an hour with a goal of 46 mL/h. She is continued with high residuals. May need Reglan if no improvement. She remains on albuterol, Symbicort, Decadron. Lovenox for DVT prophylaxis. Show chronic and for somatic changes and mild cardiomegaly with small to tiny left pleural effusion and patchy bilateral multifocal edema and/or acute infiltrates. No significant change. Blood culture was positive for Staphylococcus epidermidis. Sputum culture revealed no growth. White count 13.3. Hemoglobin 7.5. Platelets 364. Sodium 133. Potassium 5.1. Bicarb 24. BUN 41. Creatinine 2.91. Glucose 137. Currently in a +250 mL balance. On 08/27/2024, this patient is being seen for a follow-up. The patient remains intubated on the mechanical ventilator due to a combination of COPD and CHF exacerbation and COVID-19 infection. Noted the patient also has history of multiple myeloma receiving treatment on an outpatient basis. The patient has end-stage renal disease on hemodialysis and the patient also has history of hypertension hypothyroidism and during the course of the illness, the patient was also found to have a spiculated 1.7 cm right upper lobe lesion that was PET avid. This morning, the patient remains intubated on the mechanical ventilator. The patient is on assist-control mode at rate of 20, tidal volume of 350, FiO2 50% with a PEEP of 5. The patient remains sedated with propofol at 50 mc. The blood gases from today showed a pH of 7.26 with a pCO2 of 56 and pO2 of 70 and the chest x-ray shows stable perihilar and lower lobe pulmonary infiltrates. ET tube is around 5 cm above the danilo. The patient also has a dialysis permacath port in the right subclavian. Blood culture was positive for coagulase-negative staph and Staph epidermidis on 08/23/2024. Sputum culture was negative. The patient is currently on Decadron 8 mg p.o. daily Symbicort. No antibiotic coverage for now. is also on Lovenox for DVT prophylaxis at a dose of 30 mg subcu on a daily basis. Hemodynamically, the patient is requiring a low-dose norepinephrine for blood pressure support. Echocardiogram done on 08/23/2024 shows mild impairment of LV function with an EF of around 40 to 45% evidence of severe pulmonary hypertension and RV dilatation and estimated pulmonary artery pressures of around 56. Blood work from today shows a white cell count of 10.6, hemoglobin 7.2 and platelet count of 333. The sodium level is sodium is 135 at 135 with a potassium of 5.3, BUN 70 creatinine of 4.34. She is still on NE low dose at 0.04mc/kg/min. Her fluid balance is 1.4 L over the past 24 hours. Her last hemodialysis session was on 08/25/2024 with a total of 1 L of fluid was removed. She is on Vital HP at 30 cc. hr. Residuals are oin 250 cc range On 08/28/2023, the patient is being seen for a follow-up. Remains intubated on mechanical ventilator. Patient remains on propofol running at 45 mcg/kg/min. On today's evaluation, the patient is on assist-control mode with rate of 20, tidal volume of 450, FiO2 of 50% and the PEEP was brought up to 8 as the morning blood gases showed a pH of 7.38 with a pCO2 of 50 and pO2 of 66 and this was an FiO2 of 50%. The chest x-ray findings are essentially unchanged. The patient continues to have perihilar and lower lobe pulmonary infiltrates, patchy, slightly worse on the left and there is also some background cardiomegaly. The patient underwent hemodialysis yesterday. The patient is end-stage renal disease and she is currently on hemodialysis. She remains on norepinephrine which is running at 0.1 mcg/kg/min and the patient remains on vasopressin physio logic dose at 0.03 units. The patient has been having difficulties with atrial fibrillation since yesterday. Cardiology has been involved in the case and the patient was started on Cardizem drip and Cardizem drip is running at 5 mg an hour. Nevertheless, the patient continues to be in A-fib and she remains tachycardic. On a separate note, her hemoglobin is at 6.7. Still awaiting an appropriate manage for the packed RBC transfusion. The rest of the blood work shows a white cell count of 7.9, platelet count of 258, BUN is 48 with a creatinine of 2.8, sodium is at 132, chloride is 94 and a serum bicarb is at 27 at this point. Remains on Decadron 8 mg p.o. daily. Afebrile. Receiving ent eral feeding for nutritional support. On 08/29/2024, the patient is being seen for a follow-up. The patient remains intubated on the mechanical ventilator. This morning, the patient is on propofol running at 30 mcg/kg/min. The patient is on mechanical ventilator assist-control mode rate of 20, tidal volume of 450, FiO2 50% with a PEEP of 8. Blood gas from today showed a pH of 7.27 with a pCO2 of 53 and pO2 of 97. CAT scan of the brain was negative. CAT scan of the chest was also completed y esterday and it showed interstitial infiltrates bilaterally consistent with COVID-19 pneumonia. At the same time, the patient had areas of consolidation lung bases left more than right highly suspicious for a bacterial infection. Based on that, the patient was started on a combination of Zosyn and vancomycin. The patient received a unit of packed RBC and the hemoglobin today is at 7.3. The patient remains on low-dose norepinephrine running at 0.08 mcg/kg/min. IV fluids are currently at KVO. Receiving vital high-protein at rate of 40 cc an hour. The patient encountered atrial fibrillation and she is currently back in normal sinus rhythm. She remains on amiodarone at 0.5 mg/min. Last hemodialysis session was on 08/27/2024. The white cell count is at 4.7, hemoglobin 7.3 and a platelet count of 188. Sodium is at 131 with a potassium level of 5.1, BUN is 81 with a creatinine of 3.3. No other significant events overnight. The patient is currently afebrile. Overnight, the patient was having low-grade fever On 08/30/2024, the patient is being seen for a follow-up. The patient remains intubated on the mechanical ventilator. This morning, the patient is on propofol running at 15 mcg/kg/min. She is on assist-control mode of mechanical ventilation and the patient is on assist-control rate of 20, tidal volume of 450, FiO2 50% with a PEEP of 6. Blood gas showed pH of 7.26 with a pCO2 of 57 and pO2 of 78. Chest x-ray shows stable, probably slightly improved perihilar and lower lobe pulmonary filtration as the patient is currently on a combination of Zosyn and vancomycin. The patient is also to undergo hemodialysis today. Hemodynamically, the patient is in normal sinus rhythm. The patient is on no pressors. The patient is dealing vital high-protein at rate of 40 cc an hour. Blood work from today shows a white cell count of 3.7 with a hemoglobin 8.2 and a platelet count of 143. The sodium is at 130, potassium is at 5.9 with a chloride of 93 and a bicarb of 19. BUN is 119 with a potassium level of 3.8. The patient remains on Decadron. Rest of the medications are essentially unchanged. The patient was given a sedation holiday yesterday and the patient was able to arouse and follows some simple commands. Not ready for extubation yet. Hemoglobin has been stable. No signs of any bleeding. 08/31/2024, the patient is being seen for a follow-up. The patient remains on propofol running at 25 mcg/kg/min. Breathing seems to be labile and the patient continues to have a high minute ventilation of around 16 to 17 L/min. She remains on assist-control mode of mechanical ventilation at rate of 20, tidal volume of 500, FiO2 50% with a PEEP of 6. Blood gas showed a pH of 7.37 with a pCO2 of 45 and pO2 of 74. The chest x-ray findings are stable and the patient stable bilateral pulmonary filtrates. The patient underwent hemodialysis yesterday and a total of 650 cc of fluid was removed. Postdialysis, the patient was placed on norepinephrine which is currently running at 0.06 mcg/kg/min. The patient is in a normal sinus rhythm and she converted as of 3 AM this morning. She is on vital high-protein at rate of 40 cc an hour. Afebrile for now. White cell count is down to 1.7 with a hemoglobin 7.7 and a platelet count of 106. Sodium is at 133, potassium is at 4.7, bicarb is 25 with a BUN of 19 and creatinine of 2.6. Vancomycin trough level was 18. On 09/01/2024, the patient is being seen for a follow-up. Calm and comfortable, remains on propofol at 20 mcg/kg/min. This morning, her breathing is less labored and her minute ventilation is down to 12. She is on a pressure control mode of mechanical ventilation at rate of 20, pressure control of 20, I, 0.8, FiO2 of 50% with a PEEP of 6. Chest x-ray findings are unchanged. The patient is to undergo another session of hemodialysis today. Blood gas from today shows a pH of 7.39 with a pCO2 of 39 and pO2 of 101. Cardiac rhythm is sinus and the patient remains on a combination of oral amiodarone and metoprolol. The patient remains on vital high-protein at rate of 40 cc an hour. No pressors for now. The white cell count of 2.2 renal cell 0.5 and a platelet count of 92. Sodium is 134, BUN is 117 and a creatinine of 3.37. Potassium level is at 5.1. Serum bicarb is at 18. Remains on Zosyn and vancomycin. Sputum cultures have been negative. Blood cultures been negative. Remains on Lovenox 30 mg subcu for DVT prophylaxis. Remains on Decadron 8 mg p.o. on a daily basis. On 09/02/2024, the patient is being seen for a follow-up. The patient remains on propofol running at 30 mcg/kg/min. Calm and comfortable on pressure control mode of mechanical ventilation at rate of 20, pressure control of 20, FiO2 50% with a PEEP of 5. Blood gas showed a pH of 7.37 with a pCO2 of 34 and pO2 of 103. Chest x-ray findings are stable. Remains on low-dose norepinephrine runni ng at 0.1 mcg/kg/min. Hemodialysis performed yesterday a total of 650 cc of fluid was removed. She is in A-fib/flutter and the patient remains on oral amiodarone 400 mg p.o. twice a day and metoprolol 25 mg p.o. twice a day. She remains on Lovenox 30 mg subcu for DVT prophylaxis. She remains on Decadron. The blood work from today shows a white cell count of 1.8 with a hemoglobin of 7.5 and a platelet count of 77. Platelet counts are stable. BUN is 84 with a creatinine of 2.3 and a sodium levels at 132. Vancomycin level is at 17. Patient was evaluated today in the ICU on 09/03/2024 remains intubated and mechanically ventilated, she is on pressure control mode of mechanical ventilation with PI of 20, DI 0.8, rate 14 FiO2 40% and PEEP of 5 ABG showed a pO2 of 75 pCO2 37 pH of 7.38 hence no changes were made in vent settings. Patient requiring norepinephrine at 0.1 mcg/kg/min also on propofol 30 mcg/kg/min Cardizem 5 mg/h she is receiving vital HP at 40 cc/h IV fluid at KVO remains on Zosyn, and she is on hemodialysis today, when I saw the patient she was actually receiving hemodialysis the plan is to remove 1 L. Patient had COVID over 10 days ago, and she is out of precautions. Her peak airway pressures 26 Plateau pressure is 19. Chest x-ray continues to show multifocal airspace opacities. WBC count is 2.3 hemoglobin is 7 electrolytes are normal BUN is 113 creatinine 2.96 Patient seen today on 09/04 2024 patient, patient remains intubated and mechanically ventilated, he is on pressure control mode of mechanical ventilation with pressure control of 20 rate 18 TI 0.8 FiO2 40% and PEEP of 5 ABG showed a pO2 of 73 pCO2 39 pH of 7.37 hence no adjustments were made on the ventilator settings. Patient is still requiring norepinephrine at 0.1 mcg/kg/min propofol 25 mcg/kg/min she briefly she was on vasopressin last night which is now off, patient had episodes of bradycardia radiating down to 40 heart rate, and cardiology stopped her Cardizem. She will be given metoprolol and amiodarone as per cardiology on the case. Patient had a PICC line placed today, patient is on Decadron and I cut it down to 4 mg daily remains on Lovenox for DVT prophylaxis remains on GI prophylaxis. Patient is awake, opens her eyes, but does not seem to track or follow any instructions. Hence I plan to cut down the propofol further and continue to assess mental status on a daily basis. Obviously considering her mental status, she is not ready to be weaned or extubated. Chest x-ray continues to show multiple opacities in both lungs left more so than right WBC count today is low at 1.4 hemoglobin 6.4, patient will be transfused with at least 1 unit of packed RBCs for a hemoglobin of 6.4 Patient was reevaluated today on 09/05/2024, remains in the ICU, intubated and mechanically ventilated, she is on a pressure control mode of mechanical ventilation, pressure control of 20 rate of 18 TI 0.8 FiO2 40% and PEEP of 5 ABG is marginal with a pO2 of 68 pCO2 34 pH of 7.45. Patient is still requiring hemodialysis she is also requiring norepinephrine at 0.14 mcg/kg/min propofol at 10 mcg/kg/min receiving vital HP at 55/55 patient had a drop in her hemoglobin today down to 6 and she is receiving a unit of packed RBCs may require even more. WBC count is 1.6 hemoglobin 6 platelets are 70,000. Antibiotics whitley she is on acyclovir, vancomycin and Zosyn patient is requiring hemodialysis today. Neurologically the patient is about the same, she opens her eyes, does not tr ack, does not follow any instructions, hence will consider discontinuing propofol or cutting the dose further down to fully assess mental status off sedation completely. Chest x-ray continues to show COPD, and multifocal infiltrates left more so than right. Last sputum culture from 09/01 was nondia gnostic she had at 1 point positive blood cultures for Staph epidermidis blood cultures remain negative all along. Patient was seen today on 09/06/2024, patient remains in the ICU, intubated and mechanically ventilated. Remains on pressure control mode of mechanical ventilation, pressure control of 20 inspiratory time of 0.8 rate normal 18, FiO2 40% and PEEP of 5 ABG is marginal with a pO2 of 65 pCO2 of 35 pH of 7.45 FiO2 was increased from 40% to 45%. Otherwise no changes were made in her vent settings. Patient is still requiring norepinephrine for low blood pressure she is on norepinephrine at 0.09 mcg/kg/min propofol has been on hold since yesterday IV fluid at KVO vital AF at 55 cc/h remains on Zosyn Decadron and Lovenox. Patient continues to have poor mental status, she opens her eyes but does not follow any instructions according to the nurse yesterday she had 1 episode when she was following simple instructions intermittently, patient received a dose of Dilaudid today, and now she is unable to follow any instructions. Continues to have leukopenia with WBC of 1.2 hemoglobin is 7 patient received a unit of packed RBCs yesterday. Basic metabolic profile is relatively normal bicarb is normal BUN is 73 creatinine 2.09 intermittently receiving dialysis. Antibiotics and antiviral whitley, patient remains on acyclovir, remains on Zosyn, off vancomycin. Chest x-ray continues to show similar multifocal airspace opacities left more so than right. Patient was seen today on 09/07/2024, remains in the ICU, intubated and mechanically ventilated, patient remains on pressure mode of mechanical ventilation/pressure control with pressure control of 20 TI 0.8 FiO2 45% PEEP of 5 and rate 18. ABG is marginal with a pO2 of 66 pCO2 35 pH of 7.31, patient was placed on pressure support mode of mechanical ventilation with pressure support of 10 and CPAP, noted bicarb to be low, hence the patient was given an amp of bicarb. Patient is still requiring norepinephrine at 0.07 mcg/kg/min propofol has been on hold for the last 2 days patient will receive a unit of packed RBCs for low hemoglobin patient is on hemodialysis today, and she is still receiving Zosyn. Mentation whitley is about the same, patient opens eyes but does not follow any instructions and obviously she is not quite ready for weaning chest x-ray continues show bilateral patchy infiltrates. Because of her mental status, will continue to hold sedation, and again I have no plans to wean or extubate this patient at this point yet. WBC count is 1.1 hemoglobin 6.7 a unit of packed RBCs will be given electrolytes are normal bicarb is 21 anion gap is 14 BUN is 106 creatinine 2.54 patient is on dialysis today. Patient was seen today on 09/08/2024, patient remains in the ICU remains intubated on mechanically ventilated, patient is on assist-control rate of 24 tidal volume 500 FiO2 50% PEEP of 5 patient seems to be quite tachypneic and does not follow any instructions opens her eyes, seems to be working hard to breathe, adjustments were made on the ventilator with increasing the flow and increasing the rate to override her effort, continued to have tachypnea and almost struggling to breathe. Holding sedation for the last few days does not seem to be helping hence I am recommending that we sedate the patient and I would recommend that she goes back on propofol. From the overall picture, I believe the patient may eventually need tracheostomy and PEG tube placement. She is not going to be an easy wean, and tracheostomy and PEG tube placement will be an appropriate decision unless the family decides to go with comfort care measures. ABG today showed a pO2 of 70 pCO2 43 pH of 7.36. Yesterday p atient had almost 6 hours of pressure support and CPAP, she was noted to breathe hard, but maintained adequate saturation and maintained adequate pulmonary status. Again because of her mental status and a bit reluctant to extubate the patient. She will probably develop difficulty with clearing her secretions and will not be able to tolerate extubation. Hence most likely we may be heading towards tracheostomy and PEG tube placement. Neurology saw the patient for her mental status CT of the brain is negative. Continues to have leukopenia with WBC count of 1.2 hemoglobin is 7.5 platelets are also low at 55,000 patient has multiple myeloma ABG as noted earlier basic metabolic profile is normal bicarb is now 24 BUN is 82 creatinine 1.72 I do not believe patient will be dialyzed today. Seen today on 09/09/2024, patient remains in the ICU, intubated and mechanically ventilated. Patient remains encephalopathic hence I could not do much in the form of weaning trials on this patient, except she did go on pressure support and CPAP for quite some time, tolerated but because of her mental status and encephalopathy, could not proceed any further with weaning/extubation. She was placed back on mechanical ventilation AC mode, volume control, she is on assist- control rate of 24 tidal volume 500 FiO2 50% and PEEP of 5 ABG showed a pO2 of 84 pCO2 39 pH of 7.40. Last night the patient became hypotensive specially during her hemodialysis, and I recommended norepinephrine it was running at 0.04 mcg/kg/min vasopressin at 0.03, patient did well after her hemodialysis, and she is now off pressors. Hemoglobin this morning is 6.8, patient will receive a unit of packed RBCs at this is her fourth unit. Remains on Decadron, remains on Zosyn, remains on hemodialysis, and she remains encephalopathic, hence I am recommending tracheostomy and PEG tube placement, family apparently is not oppo sed to the idea of tracheostomy and PEG tube placement. Patient has been now intubated for 2 weeks, and she is not ready to wean and extubate, even if she is extubated, patient will not tolerate that for a long time considering her mental status/encephalopathy. She did well with pressure support and CPAP, but her mental status is still concerning. Continues to have leukopenia with WBC of 1.2 hemoglobin 6.8 electrolytes are normal BUN is 85 creatinine 1.66 patient did receive hemodialysis yesterday. Patient remains on bronchodilators, remains on Decadron 4 mg p.o. daily, remains on Zosyn, she is also receiving bicarb, and she is also on midodrine as well as amiodarone twice daily. Orally. 09/10/2024 patient seen and examined at bedside. Patient remains in the ICU intubated and mechanically ventilated. No acute events overnight. Ventilator settings at assist-control with a rate of 24, tidal volume 500 FiO2 50% with PEEP of 5. Patient on enteral feeding with a rate of 55. Patient remains on bronchodilators, on Decadron 4 mg p.o. daily, on Zosyn IVPB, midodrine and amiodarone 400 PO twice daily. Patient remains on propofol at a rate of 10 mcg/kg/min. Levophed and vasopressin have been held since midnight today. ABG today pO2 75, pCO2 41, pH 7.36. WBC very low at 0.6, hemoglobin 8, platelet count 43,000 sodium 131, potassium 5, chloride 95, bicarb 21, BUN 104, creatinine 2.5, glucose 141, calcium 8.2. Chest x-ray shows diffuse pleural- parenchymal changes to correlate CHF versus diffuse pneumonia, NG and ET tube in place. 09/11/2024 patient seen and examined at bedside. Patient remains in the ICU intubated and mechanically ventilated. Yesterday, patient became hypotensive during dialysis session and required Levophed to remain hemodynamically stable and tracheostomy and PEG tube placement was deferred. Ventilator settings are assist-control with a rate of 21, tidal volume 400, FiO2 50% at a PEEP of 5. Enteral feeding held at this time. Patient remains on bronchodilators, Levophed at 0.15 mcg/kg/min, propofol at 10 mcg/kg/min, midodrine 5 mg p.o. AC and 3 times daily, dexamethasone 4 mg p.o., amiodarone 400 mg p.o. twice daily and and Lopressor 25 mg p.o. 3 times daily. ABG today pO2 83, pCO2 46, NPH 7.28. Labs show WBC 0.7, hemoglobin 8.2, sodium 132, potassium 4.9, chloride 95, bicarb 22, BUN 87, creatinine 2.17, glucose 115, calcium 8.3, AST 1, ALT 13, albumin 2.3. Chest x-ray showed diffuse pleural-parenchymal changes to correlate for CHF versus diffuse pneumonia, ET tube, NG tube, PICC line, dialysis port seen and in place. EEG reported abnormal due to background slowing of mild to moderate degree suggestive of generalized cerebral dysfunction seen with toxic metabolic encephalopathy or related to diffuse structural brain abnormality, negative for epileptiform activity. Review of Systems: Cannot be obtained GENERAL EXAM: non-toxic, intubated and mechanically ventilated HEAD: Normocephalic. Atraumatic EYES: Normal reaction of pupils, equal size. NOSE: Clear with pink turbinates. THROAT: Endotracheal tube and gastric tube are intact. NECK: No masses, no JVD. CHEST: No chest wall deformity. LUNGS: Crackles at the bases no rhonchi no wheezes CVS: S1 and S2 normal with no audible murmur, tachycardic. ABDOMEN: Soft nontender nondistended no rebound no guarding SKIN: No rashes CENTRAL NERVOUS SYSTEM: No major change in her mental status and she remains encephalopathic opens eyes does not follow any instructions EXTREMITIES: +2 bilateral upper and lower extremity edema. No clubbing, no cyanosis. Peripheral pulses are intact. Impression: -Active: Acute hypoxic respiratory failure, multifactorial Acute exacerbation of COPD Acute on chronic systolic congestive heart failure Acute COVID-19 pneumonia. Procal has decreased to 7.42. Recent sputum cultures and blood cultures on 09/01 have been negative. Zosyn discontinued on 09/10. Sepsis and septic shock with hypotension secondary to pneumonia Status post PICC line placement on 09/04/2024 Acute metabolic encephalopathy Failure to wean because of encephalopathy -Chronic conditions: History of multiple myeloma has been on Revlimid, patient has chronic pancytope binu Right upper lobe spiculated nodule with positive PET scan needs outpatient workup it is 1.7 cm highly suspicious for bronchogenic carcinoma/adenocarcinoma Tobacco dependence syndrome End-stage renal disease, on hemodialysis Benign essential hypertension Chronic anemia Recommendations: Continue ventilatory support. Patient encephalopathic and unable to tolarate weaning trials Assess mental status daily Continue sedation/low-dose propofol Use pressors as needed for hemodynamic instability Continue hemodialysis Continue amiodarone 400 PO twice daily and Lopressor 25 mg PO thrice daily Continue sodium bicarbonate tablet 650 mg p.o. twice daily VTE prophylaxis held for now. Will resume after procedures Held nutritional support/enteral feeding for now. Will resume after procedures. Transfuse for hemoglobin below 7 Tracheostomy and PEG tube placement today per surgery GI prophylaxis: Protonix 40mg IV DVT prophylaxis: SCDs Prognosis remains guarded. Remains critically ill Objective - Vital Signs Vital signs: Vital Signs Temp 97.4 F L 09/11/24 04:00 Pulse 98 09/11/24 07:00 Resp 26 H 09/11/24 07:00 BP 102/66 09/10/24 17:00 Pulse Ox 95 09/11/24 07:00 FiO2 50 09/11/24 04:10 Intake & Output 01/20/25 01/21/25 01/21/25 18:59 06:59 18:59 Intake Total 1359.864 612.045 23 Output Total 1150 0 0 Balance 209.864 612.045 23 Weight 71.8 kg 73.8 kg Intake: IV 276 253 23 .9NS KVO 240 220 20 .9NS Pressure Bag 36 33 3 Intake, IV Titration 73.864 109.045 Amount Norepinephrine 8 mg In 73.864 109.045 Sodium Chloride 0.9% 250 ml @ 0.03 MCG/KG/MIN 3. 106 mls/hr IV .Q24H [facility] Rx#:[id number] Tube Feeding 55 220 Blood Product 325 Platelet Pheresis Pas 325 Psoralen Unit [id number] Hemodialysis 600 Other 30 30 Output: Urine 48 0 0 Hemodialysis 851 Hemodialysis Net Amount 251 Other: Voiding Method Indwelling Catheter Indwelling Catheter ABP, PAP, CO, CI - Last Documented Arterial Blood Pressure 87/50 - Labs CBC & Chem 7: 09/11/24 06:00 09/11/24 06:00 Labs: Abnormal Lab Results - Last 24 Hours (Table) 09/04/24 09/04/24 09/10/24 Range/Units 23:27 23:28 11:56 WBC (3.8-10.6) k/uL RBC (3.80-5.40) m/uL Hgb (11.4-16.0) gm/dL Hct (34.0-46.0) % RDW (11.5-15.5) % ABG pH (7.35-7.45) ABG pCO2 (35-45) mmHg Hemoglobin (11.4-16.0) gm/dL Sodium (137-145) mmol/L Chloride (98-107) mmol/L BUN (7-17) mg/dL Creatinine (0.52-1.04) mg/dL Glucose (74-99) mg/dL POC Glucose (mg/dL) 154 H 146 H 112 H (70-110) mg/dL Calcium (8.4-10.2) mg/dL AST (14-36) U/L ALT (4-34) U/L Total Protein (6.3-8.2) g/dL Albumin (3.5-5.0) g/dL 09/10/24 09/10/24 09/10/24 Range/Units 17:55 20:35 23:41 WBC (3.8-10.6) k/uL RBC (3.80-5.40) m/uL Hgb (11.4-16.0) gm/dL Hct (34.0-46.0) % RDW (11.5-15.5) % ABG pH (7.35-7.45) ABG pCO2 (35-45) mmHg Hemoglobin (11.4-16.0) gm/dL Sodium (137-145) mmol/L Chloride (98-107) mmol/L BUN (7-17) mg/dL Creatinine (0.52-1.04) mg/dL Glucose (74-99) mg/dL POC Glucose (mg/dL) 135 H 140 H 123 H (70-110) mg/dL Calcium (8.4-10.2) mg/dL AST (14-36) U/L ALT (4-34) U/L Total Protein (6.3-8.2) g/dL Albumin (3.5-5.0) g/dL 09/11/24 09/11/24 09/11/24 Range/Units 05:15 06:00 06:00 WBC 0.7 L* (3.8-10.6) k/uL RBC 2.82 L (3.80-5.40) m/uL Hgb 8.2 L (11.4-16.0) gm/dL Hct 25.3 L (34.0-46.0) % RDW 17.9 H (11.5-15.5) % ABG pH 7.28 L (7.35-7.45) ABG pCO2 46 H (35-45) mmHg Hemoglobin 7.6 L (11.4-16.0) gm/dL Sodium 132 L (137-145) mmol/L Chloride 95 L (98-107) mmol/L BUN 87 H (7-17) mg/dL Creatinine 2.17 H (0.52-1.04) mg/dL Glucose 115 H (74-99) mg/dL POC Glucose (mg/dL) (70-110) mg/dL Calcium 8.3 L (8.4-10.2) mg/dL AST 13 L (14-36) U/L ALT 43 H (4-34) U/L Total Protein 5.6 L (6.3-8.2) g/dL Albumin 2.3 L (3.5-5.0) g/dL
--- NOTE | 2024-09-11 11:19 | P.PN ---
Subjective Progress Note Date: 09/11/24 Principal diagnosis: Multiple myeloma, intractable pain, subsequent COVID infection, hypoxic respiratory failure In follow-up today patient is awake on the vent, she looked in my direction when spoken to. Plans are for tracheostomy and PEG tube to be placed today. Objective - Vital Signs Vital signs: Vital Signs Temp 96.9 F L 09/11/24 08:00 Pulse 109 H 09/11/24 09:15 Resp 26 H 09/11/24 09:15 BP 104/71 09/11/24 09:00 Pulse Ox 94 L 09/11/24 09:15 FiO2 50 09/11/24 08:00 Intake & Output 09/10/24 09/11/24 09/11/24 18:59 06:59 18:59 Intake Total 1359.864 612.045 92 Output Total 1150 0 10 Balance 209.864 612.045 82 Weight 71.8 kg 73.8 kg Intake: IV 276 253 92 .9NS KVO 240 220 80 .9NS Pressure Bag 36 33 12 Intake, IV Titration 73.864 109.045 Amount Norepinephrine 8 mg In 73.864 109.045 Sodium Chloride 0.9% 250 ml @ 0.03 MCG/KG/MIN 3. 106 mls/hr IV .Q24H [facility] Rx#:[id number] Tube Feeding 55 220 0 Blood Product 325 Platelet Pheresis Pas 325 Psoralen Unit [id number] Hemodialysis 600 Other 30 30 Output: Urine 48 0 10 Hemodialysis 851 Hemodialysis Net Amount 251 Other: Voiding Method Indwelling Catheter Indwelling Catheter Indwelling Catheter ABP, PAP, CO, CI - Last Documented Arterial Blood Pressure 99/60 - Constitutional General appearance: Present: no acute distress, thin - EENT Eyes: Present: anicteric sclerae, EOMI ENT: Present: hearing grossly normal - Respiratory Details: Endotracheal tube in place - Cardiovascular Details: Tachycardia on telemetry, bilateral upper extremity swelling with some fluid leaking - Psychiatric Psychiatric: Absent: A&O x's 3, appropriate affect, intact judgment & insight - Labs CBC & Chem 7: 09/11/24 06:00 09/11/24 06:00 Labs: Abnormal Lab Results - Last 24 Hours (Table) 09/10/24 09/10/24 09/10/24 Range/Units 11:56 17:55 20:35 WBC (3.8-10.6) k/uL RBC (3.80-5.40) m/uL Hgb (11.4-16.0) gm/dL Hct (34.0-46.0) % RDW (11.5-15.5) % ABG pH (7.35-7.45) ABG pCO2 (35-45) mmHg Hemoglobin (11.4-16.0) gm/dL Sodium (137-145) mmol/L Chloride (98-107) mmol/L BUN (7-17) mg/dL Creatinine (0.52-1.04) mg/dL Glucose (74-99) mg/dL POC Glucose (mg/dL) 112 H 135 H 140 H (70-110) mg/dL Calcium (8.4-10.2) mg/dL AST (14-36) U/L ALT (4-34) U/L Total Protein (6.3-8.2) g/dL Albumin (3.5-5.0) g/dL 09/10/24 09/11/24 09/11/24 Range/Units 23:41 05:15 06:00 WBC 0.7 L* (3.8-10.6) k/uL RBC 2.82 L (3.80-5.40) m/uL Hgb 8.2 L (11.4-16.0) gm/dL Hct 25.3 L (34.0-46.0) % RDW 17.9 H (11.5-15.5) % ABG pH 7.28 L (7.35-7.45) ABG pCO2 46 H (35-45) mmHg Hemoglobin 7.6 L (11.4-16.0) gm/dL Sodium (137-145) mmol/L Chloride (98-107) mmol/L BUN (7-17) mg/dL Creatinine (0.52-1.04) mg/dL Glucose (74-99) mg/dL POC Glucose (mg/dL) 123 H (70-110) mg/dL Calcium (8.4-10.2) mg/dL AST (14-36) U/L ALT (4-34) U/L Total Protein (6.3-8.2) g/dL Albumin (3.5-5.0) g/dL 09/11/24 Range/Units 06:00 WBC (3.8-10.6) k/uL RBC (3.80-5.40) m/uL Hgb (11.4-16.0) gm/dL Hct (34.0-46.0) % RDW (11.5-15.5) % ABG pH (7.35-7.45) ABG pCO2 (35-45) mmHg Hemoglobin (11.4-16.0) gm/dL Sodium 132 L (137-145) mmol/L Chloride 95 L (98-107) mmol/L BUN 87 H (7-17) mg/dL Creatinine 2.17 H (0.52-1.04) mg/dL Glucose 115 H (74-99) mg/dL POC Glucose (mg/dL) (70-110) mg/dL Calcium 8.3 L (8.4-10.2) mg/dL AST 13 L (14-36) U/L ALT 43 H (4-34) U/L Total Protein 5.6 L (6.3-8.2) g/dL Albumin 2.3 L (3.5-5.0) g/dL Assessment and Plan (1) Multiple myeloma Current Visit: Yes Status: Acute Priority: Medium Code(s): C90.00 - MULTIPLE MYELOMA NOT HAVING ACHIEVED REMISSION SNOMED Code(s): 552684791 Plan: Intractable RLE pain -Right femur/hip and pelvis x-rays showing moderate degenerative changes. NM bone scan 08/09/24 showed no hip fracture and no abnormal uptake to suggest osseous mets. -Pain meds continued -US revealed 7.9 x 4.1 x 2.4 cm isoechoic abnormality. Unclear if it represents a large ganglion cyst containing internal thickened material versus soft tissue mass. Pending Bx of the same until pt more stable Multiple myeloma -RVD initiated 06/12/24 with daratumumab started with cycle 2. She completed cycle 3 08/13, velcade being held 08/03 due to cytopenias -Treatment will be on hold while inpt Treatment and disease pancytopenia -Anemia secondary to MM, chemo effects and ESRD. Transfuse for hgb < 7, with irradiated blood products -WBC today 0.7, no differential. G-CSF dose ordered. Will continue to monitor with additional doses as needed. -Platelet count 09/10/2024 43,000, platelet count has been reported yet today. -Continue to monitor CBC while inpatient Defer current ICU management to critical care team Doctor attests: I performed a history and physical examination of this patient, developed impression and plan of care. Discussed with dictator. I agree with dictators note, documented as a scribe.
[2024-09-11] MEDS ORDERED: droPERidol 5 MG/2 ML VIAL IVP PRN (11:20)
[2024-09-11] MEDS ORDERED: HYDROmorphone 0.5 MG/0.5 ML SYRINGE IVP PRN (11:20)
[2024-09-11] MEDS ORDERED: LIDOCAINE 1% (10MG/ML) FOR IV START INTRADERMA PRN (11:20)
[2024-09-11] MEDS: FILGRASTIM-SNDZ 480 MCG/0.8 ML SYRINGE SQ SCH (11:59)
[2024-09-11 12:17] LABS: Glucose,Whole Blood 131 mg/dL (70-110)
[2024-09-11] MEDS: ONDANSETRON 4 MG/2 ML VIAL IVP ONE (12:57)
[2024-09-11] MEDS: LACTATED RINGERS 500 ML IV SCH (12:58)
--- NOTE | 2024-09-11 13:09 | P.PN ---
Subjective Progress Note Date: 09/11/24 SURGICAL PROGRESS NOTE CHIEF COMPLAINT: Respiratory failure HISTORY OF PRESENT ILLNESS: Surgical service following in regards to tracheostomy and PEG tube placement. Patient remains in the ICU intubated and on Levophed. Afebrile. WBC 0.7 Hgb 8.2 platelets have not resulted sodium is 132 potassium is 4.9 creatinine 2.17 PHYSICAL EXAM: VITAL SIGNS: Reviewed. GENERAL: no acute distress. ABDOMEN: Soft. Nondistended. Nontender. NEUROLOGIC: Intubated and sedated ASSESSMENT: 1. Failure weaning from hypoxemic respiratory failure 2. Lung cancer 3. Multiple myeloma 4. End-stage renal disease dialysis dependent 5. Pancytopenia following chemotherapy 6. Right groin lymph node mass 7. Severe protein calorie malnutrition PLAN: -Patient tentatively scheduled for tracheostomy and PEG tube placement tomorrow with Dr. Bartlett -Hold tube feeds after midnight Physician Director Of Gift Planning note has been reviewed by physician. Signing provider agrees with the documented findings, assessment, and plan of care. Objective - Vital Signs Vital signs: Vital Signs Temp 96.9 F L 09/11/24 08:00 Pulse 74 09/11/24 11:29 Resp 26 H 09/11/24 09:15 BP 104/71 09/11/24 09:00 Pulse Ox 94 L 09/11/24 09:15 FiO2 50 09/11/24 11:27 Intake & Output 09/10/24 09/11/24 09/11/24 18:59 06:59 18:59 Intake Total 1359.864 612.045 189.793 Output Total 1150 0 10 Balance 209.864 612.045 179.793 Weight 71.8 kg 73.8 kg Intake: IV 276 253 115 .9NS KVO 240 220 100 .9NS Pressure Bag 36 33 15 Intake, IV Titration 73.864 109.045 74.793 Amount Norepinephrine 8 mg In 73.864 109.045 74.793 Sodium Chloride 0.9% 250 ml @ 0.03 MCG/KG/MIN 3. 106 mls/hr IV .Q24H [facility] Rx#:[id number] Tube Feeding 55 220 0 Blood Product 325 Platelet Pheresis Pas 325 Psoralen Unit [id number] Hemodialysis 600 Other 30 30 Output: Urine 48 0 10 Hemodialysis 851 Hemodialysis Net Amount 251 Other: Voiding Method Indwelling Catheter Indwelling Catheter Indwelling Catheter ABP, PAP, CO, CI - Last Documented Arterial Blood Pressure 99/60 - Labs CBC & Chem 7: 09/11/24 06:00 09/11/24 06:00 Labs: Abnormal Lab Results - Last 24 Hours (Table) 09/10/24 09/10/24 09/10/24 Range/Units 17:55 20:35 23:41 WBC (3.8-10.6) k/uL RBC (3.80-5.40) m/uL Hgb (11.4-16.0) gm/dL Hct (34.0-46.0) % RDW (11.5-15.5) % ABG pH (7.35-7.45) ABG pCO2 (35-45) mmHg Hemoglobin (11.4-16.0) gm/dL Sodium (137-145) mmol/L Chloride (98-107) mmol/L BUN (7-17) mg/dL Creatinine (0.52-1.04) mg/dL Glucose (74-99) mg/dL POC Glucose (mg/dL) 135 H 140 H 123 H (70-110) mg/dL Calcium (8.4-10.2) mg/dL AST (14-36) U/L ALT (4-34) U/L Total Protein (6.3-8.2) g/dL Albumin (3.5-5.0) g/dL 09/11/24 09/11/24 09/11/24 Range/Units 05:15 06:00 06:00 WBC 0.7 L* (3.8-10.6) k/uL RBC 2.82 L (3.80-5.40) m/uL Hgb 8.2 L (11.4-16.0) gm/dL Hct 25.3 L (34.0-46.0) % RDW 17.9 H (11.5-15.5) % ABG pH 7.28 L (7.35-7.45) ABG pCO2 46 H (35-45) mmHg Hemoglobin 7.6 L (11.4-16.0) gm/dL Sodium 132 L (137-145) mmol/L Chloride 95 L (98-107) mmol/L BUN 87 H (7-17) mg/dL Creatinine 2.17 H (0.52-1.04) mg/dL Glucose 115 H (74-99) mg/dL POC Glucose (mg/dL) (70-110) mg/dL Calcium 8.3 L (8.4-10.2) mg/dL AST 13 L (14-36) U/L ALT 43 H (4-34) U/L Total Protein 5.6 L (6.3-8.2) g/dL Albumin 2.3 L (3.5-5.0) g/dL 09/11/24 Range/Units 12:15 WBC (3.8-10.6) k/uL RBC (3.80-5.40) m/uL Hgb (11.4-16.0) gm/dL Hct (34.0-46.0) % RDW (11.5-15.5) % ABG pH (7.35-7.45) ABG pCO2 (35-45) mmHg Hemoglobin (11.4-16.0) gm/dL Sodium (137-145) mmol/L Chloride (98-107) mmol/L BUN (7-17) mg/dL Creatinine (0.52-1.04) mg/dL Glucose (74-99) mg/dL POC Glucose (mg/dL) 131 H (70-110) mg/dL Calcium (8.4-10.2) mg/dL AST (14-36) U/L ALT (4-34) U/L Total Protein (6.3-8.2) g/dL Albumin (3.5-5.0) g/dL
--- NOTE | 2024-09-11 13:13 | PN ---
PROGRESS NOTE SUBJECTIVE: Jennifer is a 64-year-old lady with complex and multiple medical problems and comorbidities including multiple myeloma, end-stage renal disease, on hemodialysis, possible lung malignancy and has features of myelodysplastic syndrome that we are involved in the care of because of her atrial fibrillation. She is not a candidate for anticoagulation because of anemia requiring blood transfusions. This morning, she is intubated and on the vent, sedated, and unresponsive. OBJECTIVE: VITAL SIGNS: Heart rate is around 98 beats per minute, blood pressure is 94/57, respiratory rate is 24. CHEST: Reveals diminished air entry at the bases. HEART: Reveals first and second heart sounds, irregular rhythm and a systolic murmur at the apex. ABDOMEN: Soft. EXTREMITIES: Did not reveal any edema. Peripheral pulses are felt. LABORATORY DATA: Labs show that her white cell count is 0.7, hemoglobin is 8.2, potassium is 4.9, BUN is 87, creatinine is 2.1. ASSESSMENT: Persistent atrial fibrillation with controlled ventricular rate. I will continue her on her current dose of metoprolol. Prognosis guarded. MMODL / IJN: [id number] /
--- NOTE | 2024-09-11 14:35 | P.PN ---
Subjective Progress Note Date: 09/10/24 Principal diagnosis: Reason for follow-up is fever Patient is a 64-year-old female with a past medical history significant for COPD hypertension osteoarthritis end-stage renal disease on dialysis to the right subclavian permacatheter since May 2024 initially presented to hospital with right leg pain subsequently did have acute respiratory failure requiring intubation tested positive for COVID-19 starting a fever on 08/28/2024 prompted this consultation on 09/01/2024 On today's visit that is 09/10/2024, patient has been afebrile, patient is intubated on the vent FiO2 is currently at 50% no significant purulent secretion through the ET, she did have a low blood pressure while undergoing dialysis no other changes reported by the nursing staff. Patient white count is 0.6 creatinine 0.50 Objective - Vital Signs Vital signs: Vital Signs Temp 97.2 F L 09/10/24 08:00 Pulse 101 H 09/10/24 11:00 Resp 30 H 09/10/24 11:00 BP 86/61 09/10/24 11:00 Pulse Ox 96 09/10/24 11:00 FiO2 50 09/10/24 08:00 Intake & Output 09/09/24 09/10/24 09/10/24 18:59 06:59 18:59 Intake Total 5270.512 5300.010 171.139 Output Total 270 630 45 Balance 1082.068 512.010 126.139 Intake: IV 256 376 115 .9NS KVO 220 240 100 .9NS Pressure Bag 36 36 15 Piperacillin-Tazobactam 3 100 .375 gm In Sodium Chloride 0.9% 100 ml @ 25 mls/hr IVPB Q12H [facility] Rx# :[id number] Intake, IV Titration 26.068 16.010 1.139 Amount Norepinephrine 8 mg In 23.084 16.010 1.139 Sodium Chloride 0.9% 250 ml @ 0.03 MCG/KG/MIN 3. 106 mls/hr IV .Q24H [facility] Rx#:[id number] Vasopressin 20 unit In 2.984 Sodium Chloride 0.9% 50 ml @ 0.03 UNITS/MIN 4.59 mls/hr IV .Q11H7M [facility] Rx# :[id number] Tube Feeding 550 660 55 Blood Product 310 Rc Irr As1 Unit 310 [id number] Other 210 90 0 Output: Urine 70 30 45 Stool 200 600 Other: Voiding Method Indwelling Catheter Indwelling Catheter Indwelling Catheter # Bowel Movements 1 ABP, PAP, CO, CI - Last Documented Arterial Blood Pressure 67/51 - Exam GENERAL DESCRIPTION: An elderly female intubated on the vent RESPIRATORY SYSTEM: Unlabored breathing , decreased breath sounds at bases HEART: S1 S2 regular rate and rhythm , ABDOMEN: Soft , no tenderness EXTREMITIES: No edema feet - Labs CBC & Chem 7: 09/11/24 06:00 09/11/24 06:00 Labs: Abnormal Lab Results - Last 24 Hours (Table) 09/04/24 09/04/24 09/09/24 Range/Units 23:27 23:28 07:37 WBC (3.8-10.6) k/uL RBC (3.80-5.40) m/uL Hgb (11.4-16.0) gm/dL Hct (34.0-46.0) % RDW (11.5-15.5) % Plt Count (150-450) k/uL ABG pO2 (83-108) mmHg Hemoglobin (11.4-16.0) gm/dL Sodium (137-145) mmol/L Chloride (98-107) mmol/L Carbon Dioxide (22-30) mmol/L BUN (7-17) mg/dL Creatinine (0.52-1.04) mg/dL Glucose (74-99) mg/dL POC Glucose (mg/dL) 154 H 146 H (70-110) mg/dL Calcium (8.4-10.2) mg/dL Cortisol 29.9 H (3.1-22.4) UG/DL 09/09/24 09/09/24 09/10/24 Range/Units 12:55 18:05 00:05 WBC 0.8 L* (3.8-10.6) k/uL RBC 2.50 L (3.80-5.40) m/uL Hgb 7.4 L (11.4-16.0) gm/dL Hct 22.3 L (34.0-46.0) % RDW 17.8 H (11.5-15.5) % Plt Count 51 L (150-450) k/uL ABG pO2 (83-108) mmHg Hemoglobin (11.4-16.0) gm/dL Sodium (137-145) mmol/L Chloride (98-107) mmol/L Carbon Dioxide (22-30) mmol/L BUN (7-17) mg/dL Creatinine (0.52-1.04) mg/dL Glucose (74-99) mg/dL POC Glucose (mg/dL) 174 H 155 H (70-110) mg/dL Calcium (8.4-10.2) mg/dL Cortisol (3.1-22.4) UG/DL 09/10/24 09/10/24 09/10/24 Range/Units 05:37 06:00 06:00 WBC 0.6 L* (3.8-10.6) k/uL RBC 2.73 L (3.80-5.40) m/uL Hgb 8.0 L (11.4-16.0) gm/dL Hct 24.3 L (34.0-46.0) % RDW 17.9 H (11.5-15.5) % Plt Count 43 L (150-450) k/uL ABG pO2 75 L (83-108) mmHg Hemoglobin 7.7 L (11.4-16.0) gm/dL Sodium 131 L (137-145) mmol/L Chloride 95 L (98-107) mmol/L Carbon Dioxide 21 L (22-30) mmol/L BUN 104 H* (7-17) mg/dL Creatinine 2.50 H (0.52-1.04) mg/dL Glucose 141 H (74-99) mg/dL POC Glucose (mg/dL) (70-110) mg/dL Calcium 8.2 L (8.4-10.2) mg/dL Cortisol (3.1-22.4) UG/DL 09/10/24 09/10/24 Range/Units 06:02 11:56 WBC (3.8-10.6) k/uL RBC (3.80-5.40) m/uL Hgb (11.4-16.0) gm/dL Hct (34.0-46.0) % RDW (11.5-15.5) % Plt Count (150-450) k/uL ABG pO2 (83-108) mmHg Hemoglobin (11.4-16.0) gm/dL Sodium (137-145) mmol/L Chloride (98-107) mmol/L Carbon Dioxide (22-30) mmol/L BUN (7-17) mg/dL Creatinine (0.52-1.04) mg/dL Glucose (74-99) mg/dL POC Glucose (mg/dL) 117 H 112 H (70-110) mg/dL Calcium (8.4-10.2) mg/dL Cortisol (3.1-22.4) UG/DL Assessment and Plan (1) Fever Current Visit: Yes Status: Acute Code(s): R50.9 - FEVER, UNSPECIFIED SNOMED Code(s): 192936286 (2) Leukopenia Current Visit: Yes Status: Acute Code(s): D72.819 - DECREASED WHITE BLOOD CELL COUNT, UNSPECIFIED SNOMED Code(s): 85216737 (3) Sepsis Current Visit: Yes Status: Acute Code(s): A41.9 - SEPSIS, UNSPECIFIED ORGANISM SNOMED Code(s): 95177738 Plan: 1patient with sepsis in this patient who did have fever and leukopenia patient has been in the hospital for more than 10 days before this initial evaluation with initial presentation to hospital with right leg pain subsequently did have acute respiratory failure requiring intubation and admission to ICU on 08/23/2024 patient was afebrile initially started running a fever as of 08/28/2024 2blood culture has been negative positive UA has been negative, sputum culture negative, patient did have elevated procalcitonin 3 patient did have resolution of the fever however the patient continued to have significant leukopenia could be related to Zovirax has been described still white count is on the low side oncology following the patient 4-patient advised to continue down Zosyn as procalcitonin still elevated though trending down at 7.42 and monitor clinical course closely Dictation was produced using [employer] dictation software. please excuse any grammatical, word or spelling errors. Time with Patient: Less than 30
--- NOTE | 2024-09-11 14:36 | P.PN ---
Subjective Progress Note Date: 09/11/24 Principal diagnosis: Reason for follow-up is fever Patient is a 64-year-old female with a past medical history significant for COPD hypertension osteoarthritis end-stage renal disease on dialysis to the right subclavian permacatheter since May 2024 initially presented to hospital with right leg pain subsequently did have acute respiratory failure requiring intubation tested positive for COVID-19 starting a fever on 08/28/2024 prompted this consultation on 09/01/2024 On today's visit that is 09/11/2024, Patient did spike a fever 100.9 F yesterday afternoon however the patient remains to be intubated on the vent FiO2 currently at 50% no significant purulent secretions in the diarrhea change reported by the nursing staff. Patient white count 0.7 creatinine is 2.17 Objective - Vital Signs Vital signs: Vital Signs Temp 96.9 F L 09/11/24 08:00 Pulse 74 09/11/24 11:29 Resp 26 H 09/11/24 09:15 BP 104/71 09/11/24 09:00 Pulse Ox 94 L 09/11/24 09:15 FiO2 50 09/11/24 11:27 Intake & Output 09/10/24 09/11/24 09/11/24 18:59 06:59 18:59 Intake Total 1359.864 612.045 189.793 Output Total 1150 0 10 Balance 209.864 612.045 179.793 Weight 71.8 kg 73.8 kg Intake: IV 276 253 115 .9NS KVO 240 220 100 .9NS Pressure Bag 36 33 15 Intake, IV Titration 73.864 109.045 74.793 Amount Norepinephrine 8 mg In 73.864 109.045 74.793 Sodium Chloride 0.9% 250 ml @ 0.03 MCG/KG/MIN 3. 106 mls/hr IV .Q24H [facility] Rx#:[id number] Tube Feeding 55 220 0 Blood Product 325 Platelet Pheresis Pas 325 Psoralen Unit [id number] Hemodialysis 600 Other 30 30 Output: Urine 48 0 10 Hemodialysis 851 Hemodialysis Net Amount 251 Other: Voiding Method Indwelling Catheter Indwelling Catheter Indwelling Catheter ABP, PAP, CO, CI - Last Documented Arterial Blood Pressure 99/60 - Exam GENERAL DESCRIPTION: An elderly female intubated on the vent RESPIRATORY SYSTEM: Unlabored breathing , decreased breath sounds at bases HEART: S1 S2 regular rate and rhythm , ABDOMEN: Soft , no tenderness EXTREMITIES: No edema feet - Labs CBC & Chem 7: 09/11/24 06:00 09/11/24 06:00 Labs: Abnormal Lab Results - Last 24 Hours (Table) 09/10/24 09/10/24 09/10/24 Range/Units 17:55 20:35 23:41 WBC (3.8-10.6) k/uL RBC (3.80-5.40) m/uL Hgb (11.4-16.0) gm/dL Hct (34.0-46.0) % RDW (11.5-15.5) % ABG pH (7.35-7.45) ABG pCO2 (35-45) mmHg Hemoglobin (11.4-16.0) gm/dL Sodium (137-145) mmol/L Chloride (98-107) mmol/L BUN (7-17) mg/dL Creatinine (0.52-1.04) mg/dL Glucose (74-99) mg/dL POC Glucose (mg/dL) 135 H 140 H 123 H (70-110) mg/dL Calcium (8.4-10.2) mg/dL AST (14-36) U/L ALT (4-34) U/L Total Protein (6.3-8.2) g/dL Albumin (3.5-5.0) g/dL 09/11/24 09/11/24 09/11/24 Range/Units 05:15 06:00 06:00 WBC 0.7 L* (3.8-10.6) k/uL RBC 2.82 L (3.80-5.40) m/uL Hgb 8.2 L (11.4-16.0) gm/dL Hct 25.3 L (34.0-46.0) % RDW 17.9 H (11.5-15.5) % ABG pH 7.28 L (7.35-7.45) ABG pCO2 46 H (35-45) mmHg Hemoglobin 7.6 L (11.4-16.0) gm/dL Sodium 132 L (137-145) mmol/L Chloride 95 L (98-107) mmol/L BUN 87 H (7-17) mg/dL Creatinine 2.17 H (0.52-1.04) mg/dL Glucose 115 H (74-99) mg/dL POC Glucose (mg/dL) (70-110) mg/dL Calcium 8.3 L (8.4-10.2) mg/dL AST 13 L (14-36) U/L ALT 43 H (4-34) U/L Total Protein 5.6 L (6.3-8.2) g/dL Albumin 2.3 L (3.5-5.0) g/dL 09/11/24 Range/Units 12:15 WBC (3.8-10.6) k/uL RBC (3.80-5.40) m/uL Hgb (11.4-16.0) gm/dL Hct (34.0-46.0) % RDW (11.5-15.5) % ABG pH (7.35-7.45) ABG pCO2 (35-45) mmHg Hemoglobin (11.4-16.0) gm/dL Sodium (137-145) mmol/L Chloride (98-107) mmol/L BUN (7-17) mg/dL Creatinine (0.52-1.04) mg/dL Glucose (74-99) mg/dL POC Glucose (mg/dL) 131 H (70-110) mg/dL Calcium (8.4-10.2) mg/dL AST (14-36) U/L ALT (4-34) U/L Total Protein (6.3-8.2) g/dL Albumin (3.5-5.0) g/dL Assessment and Plan (1) Fever Current Visit: Yes Status: Acute Code(s): R50.9 - FEVER, UNSPECIFIED SNOMED Code(s): 949390832 (2) Leukopenia Current Visit: Yes Status: Acute Code(s): D72.819 - DECREASED WHITE BLOOD CELL COUNT, UNSPECIFIED SNOMED Code(s): 21336317 (3) Sepsis Current Visit: Yes Status: Acute Code(s): A41.9 - SEPSIS, UNSPECIFIED ORGANISM SNOMED Code(s): 25747565 Plan: 1patient with sepsis in this patient who did have fever and leukopenia patient has been in the hospital for more than 10 days before this initial evaluation with initial presentation to hospital with right leg pain subsequently did have acute respiratory failure requiring intubation and admission to ICU on 08/23/2024 patient was afebrile initially started running a fever as of 08/28/2024 2blood culture has been negative positive UA has been negative, sputum culture negative, patient did have elevated procalcitonin 3 patient did have resolution of the fever however the patient continued to have significant leukopenia could be related to Zovirax has been described still white count is on the low side oncology following the patient 4-patient antibiotic discontinued by pulmonary 09/10/2024, with pulmonary/ICU managing antibiotic ID will sign off call back elevated question regarding her infectious disease care Dictation was produced using [employer] dictation software. please excuse any grammatical, word or spelling errors. Time with Patient: Less than 30
[2024-09-11 17:54] LABS: Glucose,Whole Blood 156 mg/dL (70-110)
--- NOTE | 2024-09-11 20:02 | P.PN ---
Subjective Patient is seen for follow-up for end-stage renal disease. Patient remains on the vent. FiO2 at 50%. Maintained on Levophed. Scheduled for hemodialysis in a.m. Objective - Vital Signs Vital signs: Vital Signs Temp 96.4 F L 09/11/24 16:00 Pulse 94 09/11/24 19:30 Resp 28 H 09/11/24 19:00 BP 127/71 09/11/24 19:15 Pulse Ox 96 09/11/24 19:30 FiO2 50 09/11/24 18:00 Intake & Output 09/11/24 09/11/24 09/12/24 06:59 18:59 06:59 Intake Total 612.045 700.105 158.437 Output Total 0 18 0 Balance 612.045 682.105 158.437 Weight 73.8 kg Intake: IV 253 276 23 .9NS KVO 220 240 20 .9NS Pressure Bag 33 36 3 Intake, IV Titration 109.045 149.105 80.437 Amount Norepinephrine 8 mg In 109.045 149.105 80.437 Sodium Chloride 0.9% 250 ml @ 0.03 MCG/KG/MIN 3. 106 mls/hr IV .Q24H [facility] Rx#:[id number] Tube Feeding 220 245 55 Other 30 30 Output: Urine 0 18 0 Other: Voiding Method Indwelling Catheter Indwelling Catheter ABP, PAP, CO, CI - Last Documented Arterial Blood Pressure 107/67 - Exam Patient is sedated and intubated Examination of the heart S1 and S2 Examination of the lungs bilateral breath sounds are heard Abdomen is soft Edema noted in the lower extremities and upper thighs. - Labs CBC & Chem 7: 09/11/24 06:00 09/11/24 06:00 Labs: Abnormal Lab Results - Last 24 Hours (Table) 09/07/24 09/10/24 09/10/24 Range/Units 13:40 20:35 23:41 WBC (3.8-10.6) k/uL RBC (3.80-5.40) m/uL Hgb (11.4-16.0) gm/dL Hct (34.0-46.0) % RDW (11.5-15.5) % Plt Count (150-450) k/uL ABG pH (7.35-7.45) ABG pCO2 (35-45) mmHg Hemoglobin (11.4-16.0) gm/dL Sodium (137-145) mmol/L Chloride (98-107) mmol/L BUN (7-17) mg/dL Creatinine (0.52-1.04) mg/dL Glucose (74-99) mg/dL POC Glucose (mg/dL) 140 H 123 H (70-110) mg/dL Calcium (8.4-10.2) mg/dL AST (14-36) U/L ALT (4-34) U/L Total Protein (6.3-8.2) g/dL Albumin (3.5-5.0) g/dL Reference Lab Result See [facility] REF Reports A 09/11/24 09/11/24 09/11/24 Range/Units 05:15 06:00 06:00 WBC 0.7 L* (3.8-10.6) k/uL RBC 2.82 L (3.80-5.40) m/uL Hgb 8.2 L (11.4-16.0) gm/dL Hct 25.3 L (34.0-46.0) % RDW 17.9 H (11.5-15.5) % Plt Count 48 L (150-450) k/uL ABG pH 7.28 L (7.35-7.45) ABG pCO2 46 H (35-45) mmHg Hemoglobin 7.6 L (11.4-16.0) gm/dL Sodium 132 L (137-145) mmol/L Chloride 95 L (98-107) mmol/L BUN 87 H (7-17) mg/dL Creatinine 2.17 H (0.52-1.04) mg/dL Glucose 115 H (74-99) mg/dL POC Glucose (mg/dL) (70-110) mg/dL Calcium 8.3 L (8.4-10.2) mg/dL AST 13 L (14-36) U/L ALT 43 H (4-34) U/L Total Protein 5.6 L (6.3-8.2) g/dL Albumin 2.3 L (3.5-5.0) g/dL Reference Lab Result 09/11/24 09/11/24 Range/Units 12:15 17:53 WBC (3.8-10.6) k/uL RBC (3.80-5.40) m/uL Hgb (11.4-16.0) gm/dL Hct (34.0-46.0) % RDW (11.5-15.5) % Plt Count (150-450) k/uL ABG pH (7.35-7.45) ABG pCO2 (35-45) mmHg Hemoglobin (11.4-16.0) gm/dL Sodium (137-145) mmol/L Chloride (98-107) mmol/L BUN (7-17) mg/dL Creatinine (0.52-1.04) mg/dL Glucose (74-99) mg/dL POC Glucose (mg/dL) 131 H 156 H (70-110) mg/dL Calcium (8.4-10.2) mg/dL AST (14-36) U/L ALT (4-34) U/L Total Protein (6.3-8.2) g/dL Albumin (3.5-5.0) g/dL Reference Lab Result Assessment and Plan Assessment: 1. End-stage renal disease on hemodialysis via right IJ permacath. 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 2. CKD mineral bone disorder 3. Anemia, multifactorial associated with underlying multiple myeloma, chemotherapy and renal failure 4. Pulmonary nodule/mass 5. Volume overload 6. Acute hypoxic respiratory failure secondary to COVID pneumonia 7. A-fib with RVR Plan: Hemodialysis in a.m. with UF of 0.5 to 1 L
[2024-09-11 23:23] LABS: Glucose,Whole Blood 138 mg/dL (70-110)
[2024-09-12] MEDS: HYDROmorphone 0.5 MG/0.5 ML SYRINGE IVP PRN (02:31)
[2024-09-12 05:45] LABS: ABG Base Excess -4.6 mmol/L; ABG HCO3 22 mmol/L (21-25); ABG Oxygen Saturation 94.8 % (94-97); ABG PCO2 45 mmHg (35-45); ABG PH 7.29 (7.35-7.45); ABG PO2 82 mmHg (83-108); ABG TCO2 23 mmol/L (19-24); Allen Test Performed? Yes
--- NOTE | 2024-09-12 07:03 | XR ---
EXAMINATION TYPE: XR chest 1V portable DATE OF EXAM: 09/12/2024 5:17 AM COMPARISON: Chest radiograph from one day prior. CLINICAL INDICATION: Female, 64 years old with history of mechanical ventilation; TECHNIQUE: XR chest 1V portable Frontal view of the chest. FINDINGS: Lungs/Pleura: Multifocal airspace opacities. No evidence of pneumothorax or pleural effusion. Pulmonary vascularity: Unremarkable. Heart/mediastinum: Cardiomediastinal silhouette is unremarkable. Musculoskeletal: No acute osseous pathology. Other findings: None Lines/Tubes: Endotracheal tube with distal tip 7.2 cm above the danilo. Nasogastric tube with its distal tip and side-port projecting under the diaphragm. Right internal jugular central venous catheter with distal tip at the cavoatrial junction. Right-sided PICC line with distal tip at the cavoatrial junction. IMPRESSION: 1. Similar multifocal airspace opacities. 2. Stable support lines and tubes. [facility], , 09/12/2024 7:01 AM
[2024-09-12 08:24] LABS: Anisocytosis Slight; HGB 7.3 gm/dL (11.4-16.0); Hypochromasia Slight; MCH 29.7 pg (25.0-35.0); MCHC 33.2 g/dL (31.0-37.0); MCV 89.4 fL (80.0-100.0); RBC 2.46 m/uL (3.80-5.40); RDW 18.1 % (11.5-15.5)
--- NOTE | 2024-09-12 08:27 | P.PN ---
Subjective Principal diagnosis: Acute respiratory failure. The patient is 64-year-old female essentially admitted to ICU for respiratory failure atrial fibrillation and element of COVID pneumonia. She is still requiring significant respiratory support and has failed weaning. Drug holiday is noted. Tracheostomy with PEG tube is also pending via surgery. Objective - Vital Signs Vital signs: Vital Signs Temp 97.6 F 09/12/24 04:00 Pulse 107 H 09/12/24 08:17 Resp 26 H 09/12/24 07:00 BP 102/60 09/12/24 07:00 Pulse Ox 94 L 09/12/24 07:00 FiO2 50 09/12/24 08:07 Intake & Output 09/11/24 09/12/24 09/12/24 18:59 06:59 18:59 Intake Total 700.105 869.914 26.364 Output Total 18 30 0 Balance 682.105 839.914 26.364 Weight 75.5 kg Intake: IV 276 276 23 .9NS KVO 240 240 20 .9NS Pressure Bag 36 36 3 Intake, IV Titration 149.105 288.914 3.364 Amount Norepinephrine 8 mg In 149.105 288.914 3.364 Sodium Chloride 0.9% 250 ml @ 0.03 MCG/KG/MIN 3. 106 mls/hr IV .Q24H [facility] Rx#:[id number] Tube Feeding 245 275 Other 30 30 Output: Urine 18 30 0 Other: Voiding Method Indwelling Catheter Indwelling Catheter # Bowel Movements 1 ABP, PAP, CO, CI - Last Documented Arterial Blood Pressure 93/51 - Constitutional General appearance: Present: thin - Respiratory Respiratory: bilateral: diminished - Cardiovascular Rhythm: irregularly irregular Heart sounds: normal: S1, S2 Abnormal Heart Sounds: Absent: S4 Gallop - Gastrointestinal General gastrointestinal: Present: soft. Absent: tenderness - Psychiatric Psychiatric: Absent: A&O x's 3 - Labs CBC & Chem 7: 09/11/24 06:00 09/11/24 06:00 Labs: Abnormal Lab Results - Last 24 Hours (Table) 09/07/24 09/11/24 09/11/24 Range/Units 13:40 06:00 06:00 Plt Count 48 L (150-450) k/uL ABG pH (7.35-7.45) ABG pO2 (83-108) mmHg Hemoglobin (11.4-16.0) gm/dL Sodium 132 L (137-145) mmol/L Chloride 95 L (98-107) mmol/L BUN 87 H (7-17) mg/dL Creatinine 2.17 H (0.52-1.04) mg/dL Glucose 115 H (74-99) mg/dL POC Glucose (mg/dL) (70-110) mg/dL Calcium 8.3 L (8.4-10.2) mg/dL AST 13 L (14-36) U/L ALT 43 H (4-34) U/L Total Protein 5.6 L (6.3-8.2) g/dL Albumin 2.3 L (3.5-5.0) g/dL Reference Lab Result See [facility] REF Reports A 09/11/24 09/11/24 09/11/24 Range/Units 12:15 17:53 23:21 Plt Count (150-450) k/uL ABG pH (7.35-7.45) ABG pO2 (83-108) mmHg Hemoglobin (11.4-16.0) gm/dL Sodium (137-145) mmol/L Chloride (98-107) mmol/L BUN (7-17) mg/dL Creatinine (0.52-1.04) mg/dL Glucose (74-99) mg/dL POC Glucose (mg/dL) 131 H 156 H 138 H (70-110) mg/dL Calcium (8.4-10.2) mg/dL AST (14-36) U/L ALT (4-34) U/L Total Protein (6.3-8.2) g/dL Albumin (3.5-5.0) g/dL Reference Lab Result 09/12/24 Range/Units 05:36 Plt Count (150-450) k/uL ABG pH 7.29 L (7.35-7.45) ABG pO2 82 L (83-108) mmHg Hemoglobin 7.3 L (11.4-16.0) gm/dL Sodium (137-145) mmol/L Chloride (98-107) mmol/L BUN (7-17) mg/dL Creatinine (0.52-1.04) mg/dL Glucose (74-99) mg/dL POC Glucose (mg/dL) (70-110) mg/dL Calcium (8.4-10.2) mg/dL AST (14-36) U/L ALT (4-34) U/L Total Protein (6.3-8.2) g/dL Albumin (3.5-5.0) g/dL Reference Lab Result Assessment and Plan (1) COPD (chronic obstructive pulmonary disease) Current Visit: Yes Status: Acute Code(s): J44.9 - CHRONIC OBSTRUCTIVE PULMONARY DISEASE, UNSPECIFIED SNOMED Code(s): 55006617 (2) End stage renal disease Current Visit: Yes Status: Acute Priority: High Code(s): N18.6 - END STAGE RENAL DISEASE SNOMED Code(s): 85287116 (3) Intractable pain Current Visit: Yes Status: Acute Priority: High Code(s): R52 - PAIN, UNSPECIFIED SNOMED Code(s): 15437445 (4) Multiple myeloma Current Visit: Yes Status: Acute Priority: Medium Code(s): C90.00 - MULTIPLE MYELOMA NOT HAVING ACHIEVED REMISSION SNOMED Code(s): 910312719 (5) Right hip pain Current Visit: Yes Status: Acute Code(s): M25.551 - PAIN IN RIGHT HIP SNOMED Code(s): 26827896 Plan: Appreciate multiple consultants input. Dialysis treatment per nephrology. Holding off of chemotherapy for multiple myeloma at this time. Tracheostomy with PEG tube is now pending. Prognosis is guarded secondary to multiple comorbidities including multiple myeloma ESRD lung mass and respiratory failure.
[2024-09-12 08:34] LABS: ALT 40 U/L (4-34); AST 14 U/L (14-36); Albumin 2.2 g/dL (3.5-5.0); Alkaline Phosphatase 75 U/L (38-126); Anion Gap 17 mmol/L; Carbon Dioxide 19 mmol/L (22-30); Chloride 96 mmol/L (98-107); Glucose 133 mg/dL (74-99); Potassium 5.3 mmol/L (3.5-5.1); Sodium 132 mmol/L (137-145); Total Bilirubin 0.9 mg/dL (0.2-1.3); Total Protein 5.2 g/dL (6.3-8.2)
[2024-09-12 08:40] LABS: African American GFR (CKD) 21 (>60 ml/min/1.73 sqM); Non-African American GFR(CKD) 19 (>60 ml/min/1.73 sqM); Platelet Count 47 k/uL (150-450); WBC 1.1 k/uL (3.8-10.6)
[2024-09-12 08:54] LABS: Blood Urea Nitrogen 109 mg/dL (7-17)
[2024-09-12 09:28] LABS: Monocytes # (M) 0.03 k/uL (0-1.0); Neutrophils # (M) 0.57 k/uL (1.3-7.7); Neutrophils % (M) 52 %; Nucleated Red Blood Cells 0 /100 WBC (0-0); Total Cells Counted 100
[2024-09-12 10:14] VITALS: BP 84/43; TEMP 99
--- NOTE | 2024-09-12 10:40 | P.PN ---
Subjective Progress Note Date: 09/12/24 Acute hypoxic respiratory failure, multifactorial This is a 63-year-old female patient with a known history of multiple myeloma receiving chemotherapy recently, suspected lung cancer with a PET positive right upper lobe 1.7 cm spiculated nodule, chronic obstructive pulmonary disease, chronic tobacco dependence, hypertension, hypothyroidism, end-stage renal disease receiving hemodialysis. She was admitted here on 08/21/2024 with complaints of right lower extremity pain. Been undergoing evaluation. Today on August 23, 2024 she had rapid response called on her twice for increasing shortness of breath and hypoxemia. She was subsequently transferred to the intensive care unit. She was placed on BiPAP 07/27 and 100% FiO2. She continued to do poorly and was subsequently intubated and placed on the mechanical ventilator. Currently on assist-control mode at a rate of 20, tidal volume 350, FiO2 100% and a PEEP of 5. She did undergo a left subclavian triple-lumen catheter placement and a right radial arterial line placement. Chest x-ray revealed satisfactory positions of the lines. Subtle scattered opacities may represent atypical pneumonia. Finding out today she is positive for COVID-19. Arterial blood gases post intubation revealed a PaO2 greater than 420, pCO2 of 60 and a pH of 7.28. FiO2 will be decreased accordingly. White count 8.5. Hemoglobin 8.7. Platelets 404. Sodium 129. Potassium 5.7. Bicarb 24. BUN 57. Creatinine 5.92. Glucose 82. She is sedated on propofol at 15 mcg/kg/min. The patient is seen today August 24, 2024 in follow-up in the intensive care unit. She remains intubated on the mechanical ventilator and assist-control mode at a rate of 20, tidal volume 350, FiO2 50% and a PEEP of 5. Morning blood gases revealed a PaO2 of 99. pCO2 48. pH 7.35. She is still requiring norepinephrine at 7 mcg/min. Cardizem drip at 5 mg an hour. Propofol at 40 mcg/kg/min. Lactated Ringer's at 100 mL/h. She is being nourished with vital HP at 10 mL/h with a goal of 46 mL/h. She remains on Symbicort, albuterol, Decadron. She is on Lovenox for DVT prophylaxis. Protonix for GI prophylaxis. Blood cultures now showing gram-positive cocci in clusters. Sputum culture pending. Vancomycin will be given x 1 until further cultures result. White count 6.6. Hemoglobin 7.0. Platelets 352. Sodium 132. Potassium 4.8. Bicarb 25. BUN 32. Creatinine 3.32. Glucose 108. The patient is seen today August 25, 2024 in follow-up in the intensive care unit. She remains intubated on the mechanical ventilator currently in settings of assist-control mode at a rate of 20, tidal volume 350, FiO2 50% and a PEEP of 5. Morning blood gases revealed a PaO2 of 91. pCO2 of 53 and a pH of 7.28. Chest x-ray reveals chronic and for somatic changes with mild cardiomegaly and patchy bilateral multifocal edema. No significant change. She remains on norepinephrine at 4 mcg/min. Cardizem drip is off. She was having sinus pauses yesterday. She has issues with intermittent atrial flutter. She is sedated on propofol at 40 mcg/kg/min. Lactated Ringer's at KVO. She is being nourished with vital HP at 10 mL/h. He received vancomycin x 1 for Staphylococcus epidermidis blood culture. Sputum culture revealed no growth. White count 12.9. Hemoglobin 7.5. Platelets 423. Sodium 133. Potassium 5.0. Bicarb 21. BUN 58. Creatinine 4.48. Glucose 134. She remains on Symbicort, albuterol, Decadron. Lovenox for DVT prophylaxis. Protonix for GI prophylaxis. The patient is seen today August 26, 2024 in follow-up in the intensive care unit. She remains intubated on mechanical ventilator and assist-control mode with a rate of 20, tidal valve 350, FiO2 50% and a PEEP of 5. Morning blood gases revealed a PaO2 of 90. pCO2 57 and a pH of 7.28. She did receive hemodialysis with 500 mL of fluid removed yesterday. She remains on norepinephrine at 1.7 mcg/min. Propofol at 50 mcg/kg/min. Lactated Ringer's at KVO. Vital HP at 10 mL an hour with a goal of 46 mL/h. She is continued with high residuals. May need Reglan if no improvement. She remains on albuterol, Symbicort, Decadron. Lovenox for DVT prophylaxis. Show chronic and for somatic changes and mild cardiomegaly with small to tiny left pleural effusion and patchy bilateral multifocal edema and/or acute infiltrates. No significant change. Blood culture was positive for Staphylococcus epidermidis. Sputum culture revealed no growth. White count 13.3. Hemoglobin 7.5. Platelets 364. Sodium 133. Potassium 5.1. Bicarb 24. BUN 41. Creatinine 2.91. Glucose 137. Currently in a +250 mL balance. On 08/27/2024, this patient is being seen for a follow-up. The patient remains intubated on the mechanical ventilator due to a combination of COPD and CHF exacerbation and COVID-19 infection. Noted the patient also has history of multiple myeloma receiving treatment on an outpatient basis. The patient has end-stage renal disease on hemodialysis and the patient also has history of hypertension hypothyroidism and during the course of the illness, the patient was also found to have a spiculated 1.7 cm right upper lobe lesion that was PET avid. This morning, the patient remains intubated on the mechanical ventilator. The patient is on assist-control mode at rate of 20, tidal volume of 350, FiO2 50% with a PEEP of 5. The patient remains sedated with propofol at 50 mc. The blood gases from today showed a pH of 7.26 with a pCO2 of 56 and pO2 of 70 and the chest x-ray shows stable perihilar and lower lobe pulmonary infiltrates. ET tube is around 5 cm above the danilo. The patient also has a dialysis permacath port in the right subclavian. Blood culture was positive for coagulase-negative staph and Staph epidermidis on 08/23/2024. Sputum culture was negative. The patient is currently on Decadron 8 mg p.o. daily Symbicort. No antibiotic coverage for now. is also on Lovenox for DVT prophylaxis at a dose of 30 mg subcu on a daily basis. Hemodynamically, the patient is requiring a low-dose norepinephrine for blood pressure support. Echocardiogram done on 08/23/2024 shows mild impairment of LV function with an EF of around 40 to 45% evidence of severe pulmonary hypertension and RV dilatation and estimated pulmonary artery pressures of around 56. Blood work from today shows a white cell count of 10.6, hemoglobin 7.2 and platelet count of 333. The sodium level is sodium is 135 at 135 with a potassium of 5.3, BUN 70 creatinine of 4.34. She is still on NE low dose at 0.04mc/kg/min. Her fluid balance is 1.4 L over the past 24 hours. Her last hemodialysis session was on 08/25/2024 with a total of 1 L of fluid was removed. She is on Vital HP at 30 cc. hr. Residuals are oin 250 cc range On 08/28/2023, the patient is being seen for a follow-up. Remains intubated on mechanical ventilator. Patient remains on propofol running at 45 mcg/kg/min. On today's evaluation, the patient is on assist-control mode with rate of 20, tidal volume of 450, FiO2 of 50% and the PEEP was brought up to 8 as the morning blood gases showed a pH of 7.38 with a pCO2 of 50 and pO2 of 66 and this was an FiO2 of 50%. The chest x-ray findings are essentially unchanged. The patient continues to have perihilar and lower lobe pulmonary infiltrates, patchy, slightly worse on the left and there is also some background cardiomegaly. The patient underwent hemodialysis yesterday. The patient is end-stage renal disease and she is currently on hemodialysis. She remains on norepinephrine which is running at 0.1 mcg/kg/min and the patient remains on vasopressin physio logic dose at 0.03 units. The patient has been having difficulties with atrial fibrillation since yesterday. Cardiology has been involved in the case and the patient was started on Cardizem drip and Cardizem drip is running at 5 mg an hour. Nevertheless, the patient continues to be in A-fib and she remains tachycardic. On a separate note, her hemoglobin is at 6.7. Still awaiting an appropriate manage for the packed RBC transfusion. The rest of the blood work shows a white cell count of 7.9, platelet count of 258, BUN is 48 with a creatinine of 2.8, sodium is at 132, chloride is 94 and a serum bicarb is at 27 at this point. Remains on Decadron 8 mg p.o. daily. Afebrile. Receiving ent eral feeding for nutritional support. On 08/29/2024, the patient is being seen for a follow-up. The patient remains intubated on the mechanical ventilator. This morning, the patient is on propofol running at 30 mcg/kg/min. The patient is on mechanical ventilator assist-control mode rate of 20, tidal volume of 450, FiO2 50% with a PEEP of 8. Blood gas from today showed a pH of 7.27 with a pCO2 of 53 and pO2 of 97. CAT scan of the brain was negative. CAT scan of the chest was also completed y esterday and it showed interstitial infiltrates bilaterally consistent with COVID-19 pneumonia. At the same time, the patient had areas of consolidation lung bases left more than right highly suspicious for a bacterial infection. Based on that, the patient was started on a combination of Zosyn and vancomycin. The patient received a unit of packed RBC and the hemoglobin today is at 7.3. The patient remains on low-dose norepinephrine running at 0.08 mcg/kg/min. IV fluids are currently at KVO. Receiving vital high-protein at rate of 40 cc an hour. The patient encountered atrial fibrillation and she is currently back in normal sinus rhythm. She remains on amiodarone at 0.5 mg/min. Last hemodialysis session was on 08/27/2024. The white cell count is at 4.7, hemoglobin 7.3 and a platelet count of 188. Sodium is at 131 with a potassium level of 5.1, BUN is 81 with a creatinine of 3.3. No other significant events overnight. The patient is currently afebrile. Overnight, the patient was having low-grade fever On 08/30/2024, the patient is being seen for a follow-up. The patient remains intubated on the mechanical ventilator. This morning, the patient is on propofol running at 15 mcg/kg/min. She is on assist-control mode of mechanical ventilation and the patient is on assist-control rate of 20, tidal volume of 450, FiO2 50% with a PEEP of 6. Blood gas showed pH of 7.26 with a pCO2 of 57 and pO2 of 78. Chest x-ray shows stable, probably slightly improved perihilar and lower lobe pulmonary filtration as the patient is currently on a combination of Zosyn and vancomycin. The patient is also to undergo hemodialysis today. Hemodynamically, the patient is in normal sinus rhythm. The patient is on no pressors. The patient is dealing vital high-protein at rate of 40 cc an hour. Blood work from today shows a white cell count of 3.7 with a hemoglobin 8.2 and a platelet count of 143. The sodium is at 130, potassium is at 5.9 with a chloride of 93 and a bicarb of 19. BUN is 119 with a potassium level of 3.8. The patient remains on Decadron. Rest of the medications are essentially unchanged. The patient was given a sedation holiday yesterday and the patient was able to arouse and follows some simple commands. Not ready for extubation yet. Hemoglobin has been stable. No signs of any bleeding. 08/31/2024, the patient is being seen for a follow-up. The patient remains on propofol running at 25 mcg/kg/min. Breathing seems to be labile and the patient continues to have a high minute ventilation of around 16 to 17 L/min. She remains on assist-control mode of mechanical ventilation at rate of 20, tidal volume of 500, FiO2 50% with a PEEP of 6. Blood gas showed a pH of 7.37 with a pCO2 of 45 and pO2 of 74. The chest x-ray findings are stable and the patient stable bilateral pulmonary filtrates. The patient underwent hemodialysis yesterday and a total of 650 cc of fluid was removed. Postdialysis, the patient was placed on norepinephrine which is currently running at 0.06 mcg/kg/min. The patient is in a normal sinus rhythm and she converted as of 3 AM this morning. She is on vital high-protein at rate of 40 cc an hour. Afebrile for now. White cell count is down to 1.7 with a hemoglobin 7.7 and a platelet count of 106. Sodium is at 133, potassium is at 4.7, bicarb is 25 with a BUN of 19 and creatinine of 2.6. Vancomycin trough level was 18. On 09/01/2024, the patient is being seen for a follow-up. Calm and comfortable, remains on propofol at 20 mcg/kg/min. This morning, her breathing is less labored and her minute ventilation is down to 12. She is on a pressure control mode of mechanical ventilation at rate of 20, pressure control of 20, I, 0.8, FiO2 of 50% with a PEEP of 6. Chest x-ray findings are unchanged. The patient is to undergo another session of hemodialysis today. Blood gas from today shows a pH of 7.39 with a pCO2 of 39 and pO2 of 101. Cardiac rhythm is sinus and the patient remains on a combination of oral amiodarone and metoprolol. The patient remains on vital high-protein at rate of 40 cc an hour. No pressors for now. The white cell count of 2.2 renal cell 0.5 and a platelet count of 92. Sodium is 134, BUN is 117 and a creatinine of 3.37. Potassium level is at 5.1. Serum bicarb is at 18. Remains on Zosyn and vancomycin. Sputum cultures have been negative. Blood cultures been negative. Remains on Lovenox 30 mg subcu for DVT prophylaxis. Remains on Decadron 8 mg p.o. on a daily basis. On 09/02/2024, the patient is being seen for a follow-up. The patient remains on propofol running at 30 mcg/kg/min. Calm and comfortable on pressure control mode of mechanical ventilation at rate of 20, pressure control of 20, FiO2 50% with a PEEP of 5. Blood gas showed a pH of 7.37 with a pCO2 of 34 and pO2 of 103. Chest x-ray findings are stable. Remains on low-dose norepinephrine runni ng at 0.1 mcg/kg/min. Hemodialysis performed yesterday a total of 650 cc of fluid was removed. She is in A-fib/flutter and the patient remains on oral amiodarone 400 mg p.o. twice a day and metoprolol 25 mg p.o. twice a day. She remains on Lovenox 30 mg subcu for DVT prophylaxis. She remains on Decadron. The blood work from today shows a white cell count of 1.8 with a hemoglobin of 7.5 and a platelet count of 77. Platelet counts are stable. BUN is 84 with a creatinine of 2.3 and a sodium levels at 132. Vancomycin level is at 17. Patient was evaluated today in the ICU on 09/03/2024 remains intubated and mechanically ventilated, she is on pressure control mode of mechanical ventilation with PI of 20, DI 0.8, rate 14 FiO2 40% and PEEP of 5 ABG showed a pO2 of 75 pCO2 37 pH of 7.38 hence no changes were made in vent settings. Patient requiring norepinephrine at 0.1 mcg/kg/min also on propofol 30 mcg/kg/min Cardizem 5 mg/h she is receiving vital HP at 40 cc/h IV fluid at KVO remains on Zosyn, and she is on hemodialysis today, when I saw the patient she was actually receiving hemodialysis the plan is to remove 1 L. Patient had COVID over 10 days ago, and she is out of precautions. Her peak airway pressures 26 Plateau pressure is 19. Chest x-ray continues to show multifocal airspace opacities. WBC count is 2.3 hemoglobin is 7 electrolytes are normal BUN is 113 creatinine 2.96 Patient seen today on 09/04 2024 patient, patient remains intubated and mechanically ventilated, he is on pressure control mode of mechanical ventilation with pressure control of 20 rate 18 TI 0.8 FiO2 40% and PEEP of 5 ABG showed a pO2 of 73 pCO2 39 pH of 7.37 hence no adjustments were made on the ventilator settings. Patient is still requiring norepinephrine at 0.1 mcg/kg/min propofol 25 mcg/kg/min she briefly she was on vasopressin last night which is now off, patient had episodes of bradycardia radiating down to 40 heart rate, and cardiology stopped her Cardizem. She will be given metoprolol and amiodarone as per cardiology on the case. Patient had a PICC line placed today, patient is on Decadron and I cut it down to 4 mg daily remains on Lovenox for DVT prophylaxis remains on GI prophylaxis. Patient is awake, opens her eyes, but does not seem to track or follow any instructions. Hence I plan to cut down the propofol further and continue to assess mental status on a daily basis. Obviously considering her mental status, she is not ready to be weaned or extubated. Chest x-ray continues to show multiple opacities in both lungs left more so than right WBC count today is low at 1.4 hemoglobin 6.4, patient will be transfused with at least 1 unit of packed RBCs for a hemoglobin of 6.4 Patient was reevaluated today on 09/05/2024, remains in the ICU, intubated and mechanically ventilated, she is on a pressure control mode of mechanical ventilation, pressure control of 20 rate of 18 TI 0.8 FiO2 40% and PEEP of 5 ABG is marginal with a pO2 of 68 pCO2 34 pH of 7.45. Patient is still requiring hemodialysis she is also requiring norepinephrine at 0.14 mcg/kg/min propofol at 10 mcg/kg/min receiving vital HP at 55/55 patient had a drop in her hemoglobin today down to 6 and she is receiving a unit of packed RBCs may require even more. WBC count is 1.6 hemoglobin 6 platelets are 70,000. Antibiotics whitley she is on acyclovir, vancomycin and Zosyn patient is requiring hemodialysis today. Neurologically the patient is about the same, she opens her eyes, does not tr ack, does not follow any instructions, hence will consider discontinuing propofol or cutting the dose further down to fully assess mental status off sedation completely. Chest x-ray continues to show COPD, and multifocal infiltrates left more so than right. Last sputum culture from 09/01 was nondia gnostic she had at 1 point positive blood cultures for Staph epidermidis blood cultures remain negative all along. Patient was seen today on 09/06/2024, patient remains in the ICU, intubated and mechanically ventilated. Remains on pressure control mode of mechanical ventilation, pressure control of 20 inspiratory time of 0.8 rate normal 18, FiO2 40% and PEEP of 5 ABG is marginal with a pO2 of 65 pCO2 of 35 pH of 7.45 FiO2 was increased from 40% to 45%. Otherwise no changes were made in her vent settings. Patient is still requiring norepinephrine for low blood pressure she is on norepinephrine at 0.09 mcg/kg/min propofol has been on hold since yesterday IV fluid at KVO vital AF at 55 cc/h remains on Zosyn Decadron and Lovenox. Patient continues to have poor mental status, she opens her eyes but does not follow any instructions according to the nurse yesterday she had 1 episode when she was following simple instructions intermittently, patient received a dose of Dilaudid today, and now she is unable to follow any instructions. Continues to have leukopenia with WBC of 1.2 hemoglobin is 7 patient received a unit of packed RBCs yesterday. Basic metabolic profile is relatively normal bicarb is normal BUN is 73 creatinine 2.09 intermittently receiving dialysis. Antibiotics and antiviral whitley, patient remains on acyclovir, remains on Zosyn, off vancomycin. Chest x-ray continues to show similar multifocal airspace opacities left more so than right. Patient was seen today on 09/07/2024, remains in the ICU, intubated and mechanically ventilated, patient remains on pressure mode of mechanical ventilation/pressure control with pressure control of 20 TI 0.8 FiO2 45% PEEP of 5 and rate 18. ABG is marginal with a pO2 of 66 pCO2 35 pH of 7.31, patient was placed on pressure support mode of mechanical ventilation with pressure support of 10 and CPAP, noted bicarb to be low, hence the patient was given an amp of bicarb. Patient is still requiring norepinephrine at 0.07 mcg/kg/min propofol has been on hold for the last 2 days patient will receive a unit of packed RBCs for low hemoglobin patient is on hemodialysis today, and she is still receiving Zosyn. Mentation whitley is about the same, patient opens eyes but does not follow any instructions and obviously she is not quite ready for weaning chest x-ray continues show bilateral patchy infiltrates. Because of her mental status, will continue to hold sedation, and again I have no plans to wean or extubate this patient at this point yet. WBC count is 1.1 hemoglobin 6.7 a unit of packed RBCs will be given electrolytes are normal bicarb is 21 anion gap is 14 BUN is 106 creatinine 2.54 patient is on dialysis today. Patient was seen today on 09/08/2024, patient remains in the ICU remains intubated on mechanically ventilated, patient is on assist-control rate of 24 tidal volume 500 FiO2 50% PEEP of 5 patient seems to be quite tachypneic and does not follow any instructions opens her eyes, seems to be working hard to breathe, adjustments were made on the ventilator with increasing the flow and increasing the rate to override her effort, continued to have tachypnea and almost struggling to breathe. Holding sedation for the last few days does not seem to be helping hence I am recommending that we sedate the patient and I would recommend that she goes back on propofol. From the overall picture, I believe the patient may eventually need tracheostomy and PEG tube placement. She is not going to be an easy wean, and tracheostomy and PEG tube placement will be an appropriate decision unless the family decides to go with comfort care measures. ABG today showed a pO2 of 70 pCO2 43 pH of 7.36. Yesterday p atient had almost 6 hours of pressure support and CPAP, she was noted to breathe hard, but maintained adequate saturation and maintained adequate pulmonary status. Again because of her mental status and a bit reluctant to extubate the patient. She will probably develop difficulty with clearing her secretions and will not be able to tolerate extubation. Hence most likely we may be heading towards tracheostomy and PEG tube placement. Neurology saw the patient for her mental status CT of the brain is negative. Continues to have leukopenia with WBC count of 1.2 hemoglobin is 7.5 platelets are also low at 55,000 patient has multiple myeloma ABG as noted earlier basic metabolic profile is normal bicarb is now 24 BUN is 82 creatinine 1.72 I do not believe patient will be dialyzed today. Seen today on 09/09/2024, patient remains in the ICU, intubated and mechanically ventilated. Patient remains encephalopathic hence I could not do much in the form of weaning trials on this patient, except she did go on pressure support and CPAP for quite some time, tolerated but because of her mental status and encephalopathy, could not proceed any further with weaning/extubation. She was placed back on mechanical ventilation AC mode, volume control, she is on assist- control rate of 24 tidal volume 500 FiO2 50% and PEEP of 5 ABG showed a pO2 of 84 pCO2 39 pH of 7.40. Last night the patient became hypotensive specially during her hemodialysis, and I recommended norepinephrine it was running at 0.04 mcg/kg/min vasopressin at 0.03, patient did well after her hemodialysis, and she is now off pressors. Hemoglobin this morning is 6.8, patient will receive a unit of packed RBCs at this is her fourth unit. Remains on Decadron, remains on Zosyn, remains on hemodialysis, and she remains encephalopathic, hence I am recommending tracheostomy and PEG tube placement, family apparently is not oppo sed to the idea of tracheostomy and PEG tube placement. Patient has been now intubated for 2 weeks, and she is not ready to wean and extubate, even if she is extubated, patient will not tolerate that for a long time considering her mental status/encephalopathy. She did well with pressure support and CPAP, but her mental status is still concerning. Continues to have leukopenia with WBC of 1.2 hemoglobin 6.8 electrolytes are normal BUN is 85 creatinine 1.66 patient did receive hemodialysis yesterday. Patient remains on bronchodilators, remains on Decadron 4 mg p.o. daily, remains on Zosyn, she is also receiving bicarb, and she is also on midodrine as well as amiodarone twice daily. Orally. 09/10/2024 patient seen and examined at bedside. Patient remains in the ICU intubated and mechanically ventilated. No acute events overnight. Ventilator settings at assist-control with a rate of 24, tidal volume 500 FiO2 50% with PEEP of 5. Patient on enteral feeding with a rate of 55. Patient remains on bronchodilators, on Decadron 4 mg p.o. daily, on Zosyn IVPB, midodrine and amiodarone 400 PO twice daily. Patient remains on propofol at a rate of 10 mcg/kg/min. Levophed and vasopressin have been held since midnight today. ABG today pO2 75, pCO2 41, pH 7.36. WBC very low at 0.6, hemoglobin 8, platelet count 43,000 sodium 131, potassium 5, chloride 95, bicarb 21, BUN 104, creatinine 2.5, glucose 141, calcium 8.2. Chest x-ray shows diffuse pleural- parenchymal changes to correlate CHF versus diffuse pneumonia, NG and ET tube in place. 09/11/2024 patient seen and examined at bedside. Patient remains in the ICU intubated and mechanically ventilated. Yesterday, patient became hypotensive during dialysis session and required Levophed to remain hemodynamically stable and tracheostomy and PEG tube placement was deferred. Ventilator settings are assist-control with a rate of 21, tidal volume 400, FiO2 50% at a PEEP of 5. Enteral feeding held at this time. Patient remains on bronchodilators, Levophed at 0.15 mcg/kg/min, propofol at 10 mcg/kg/min, midodrine 5 mg p.o. AC and 3 times daily, dexamethasone 4 mg p.o., amiodarone 400 mg p.o. twice daily and and Lopressor 25 mg p.o. 3 times daily. ABG today pO2 83, pCO2 46, NPH 7.28. Labs show WBC 0.7, hemoglobin 8.2, sodium 132, potassium 4.9, chloride 95, bicarb 22, BUN 87, creatinine 2.17, glucose 115, calcium 8.3, AST 1, ALT 13, albumin 2.3. Chest x-ray showed diffuse pleural-parenchymal changes to correlate for CHF versus diffuse pneumonia, ET tube, NG tube, PICC line, dialysis port seen and in place. EEG reported abnormal due to background slowing of mild to moderate degree suggestive of generalized cerebral dysfunction seen with toxic metabolic encephalopathy or related to diffuse structural brain abnormality, negative for epileptiform activity. 09/12/2024 patient seen and examined at bedside. Patient remains in the ICU intubated and mechanically ventilated. No acute events overnight. Ventilator settings are assist-control with a rate of 26, tidal volume 400, FiO2 50% at a PEEP of 5. Enteral feeding held at this time. Patient remains on bronchodilators, Levophed at 0.14 mcg/kg/min, propofol at 10 mcg/kg/min, midodrine 5 mg p.o. AC and 3 times daily, dexamethasone 4 mg p.o., amiodarone 400 mg p.o. twice daily and and Lopressor 25 mg p.o. 3 times daily. ABG today's p O2 82, pCO2 45 and pH 7.29 and FiO2 50%. Labs today show WBC 1.1, hemoglobin 7.3, platelet count 47,000, sodium 132, potassium 5.3, bicarb 19, BUN 109, creatinine 2.61, glucose 133, calcium 8, albumin 2.2, AST 14, ALT 40, alk phos 75. Blood cultures and sputum cultures from 09/01 were negative. Chest x-ray today shows stable multifocal airspace opacities with ET tube, nasogastric tube, right IJ central cath, and right-sided PICC line seen and in place. Review of Systems: Cannot be obtained GENERAL EXAM: non-toxic, intubated and mechanically ventilated HEAD: Normocephalic. Atraumatic EYES: Normal reaction of pupils, equal size. NOSE: Clear with pink turbinates. THROAT: Endotracheal tube and gastric tube are intact. NECK: No masses, no JVD. CHEST: No chest wall deformity. LUNGS: Crackles at the bases no rhonchi no wheezes CVS: S1 and S2 normal with no audible murmur, tachycardic. ABDOMEN: Soft nontender nondistended no rebound no guarding SKIN: No rashes CENTRAL NERVOUS SYSTEM: No major change in her mental status and she remains encephalopathic opens eyes does not follow any instructions EXTREMITIES: +2 bilateral upper and lower extremity edema. No clubbing, no cyanosis. Peripheral pulses are intact. Impression: -Active: Acute hypoxic respiratory failure, multifactorial Acute exacerbation of COPD Acute on chronic systolic congestive heart failure Acute COVID-19 pneumonia. Procal has decreased to 7.42. Recent sputum cultures and blood cultures on 09/01 have been negative. Zosyn discontinued on 09/10. Sepsis and septic shock with hypotension secondary to pneumonia Status post PICC line placement on 09/04/2024 Acute metabolic encephalopathy Failure to wean because of encephalopathy Paroxysmal atrial fibrillation -Chronic conditions: History of multiple myeloma has been on Revlimid, patient has chronic pancytopenia Right upper lobe spiculated nodule with positive PET scan needs outpatient workup it is 1.7 cm highly suspicious for bronchogenic carcinoma/adenocarcinoma Tobacco dependence syndrome End-stage renal disease, on hemodialysis Benign essential hypertension Chronic anemia Recommendations: Continue ventilatory support. Patient encephalopathic and unable to tolarate weaning trials Assess mental status daily Continue sedation/low-dose propofol Use pressors as needed for hemodynamic instability. Still requiring Levophed at this time. Continue hemodialysis. Scheduled Tuesday. Continue amiodarone 400 PO twice daily and Lopressor 25 mg PO thrice daily Continue sodium bicarbonate tablet 650 mg p.o. twice daily VTE prophylaxis held for now. Will resume after procedures Held nutritional support/enteral feeding for now. Will resume after procedures. Transfuse for hemoglobin below 7 Tracheostomy and PEG tube placement today per surgery. Family is aware and verbalized understanding that patient must be a FULL CODE if we will still proceed with procedures or if discussion on comfort care must be done if they would like to keep the patient on NO CODE status. GI prophylaxis: Protonix 40mg IV DVT prophylaxis: SCDs Prognosis: guarded. Remains critically ill. Objective - Vital Signs Vital signs: Vital Signs Temp 97.6 F 09/12/24 04:00 Pulse 101 H 09/12/24 07:00 Resp 26 H 09/12/24 07:00 BP 102/60 09/12/24 07:00 Pulse Ox 94 L 09/12/24 07:00 FiO2 50 09/12/24 05:47 Intake & Output 09/11/24 09/12/24 09/12/24 18:59 06:59 18:59 Intake Total 700.105 869.914 26.364 Output Total 18 30 0 Balance 682.105 839.914 26.364 Weight 75.5 kg Intake: IV 276 276 23 .9NS KVO 240 240 20 .9NS Pressure Bag 36 36 3 Intake, IV Titration 149.105 288.914 3.364 Amount Norepinephrine 8 mg In 149.105 288.914 3.364 Sodium Chloride 0.9% 250 ml @ 0.03 MCG/KG/MIN 3. 106 mls/hr IV .Q24H [facility] Rx#:[id number] Tube Feeding 245 275 Other 30 30 Output: Urine 18 30 0 Other: Voiding Method Indwelling Catheter Indwelling Catheter # Bowel Movements 1 ABP, PAP, CO, CI - Last Documented Arterial Blood Pressure 93/51 - Labs CBC & Chem 7: 09/12/24 07:49 09/12/24 07:49 Labs: Abnormal Lab Results - Last 24 Hours (Table) 09/07/24 09/11/24 09/11/24 Range/Units 13:40 06:00 06:00 Plt Count 48 L (150-450) k/uL ABG pH (7.35-7.45) ABG pO2 (83-108) mmHg Hemoglobin (11.4-16.0) gm/dL Sodium 132 L (137-145) mmol/L Chloride 95 L (98-107) mmol/L BUN 87 H (7-17) mg/dL Creatinine 2.17 H (0.52-1.04) mg/dL Glucose 115 H (74-99) mg/dL POC Glucose (mg/dL) (70-110) mg/dL Calcium 8.3 L (8.4-10.2) mg/dL AST 13 L (14-36) U/L ALT 43 H (4-34) U/L Total Protein 5.6 L (6.3-8.2) g/dL Albumin 2.3 L (3.5-5.0) g/dL Reference Lab Result See [facility] REF Reports A 09/11/24 09/11/24 09/11/24 Range/Units 12:15 17:53 23:21 Plt Count (150-450) k/uL ABG pH (7.35-7.45) ABG pO2 (83-108) mmHg Hemoglobin (11.4-16.0) gm/dL Sodium (137-145) mmol/L Chloride (98-107) mmol/L BUN (7-17) mg/dL Creatinine (0.52-1.04) mg/dL Glucose (74-99) mg/dL POC Glucose (mg/dL) 131 H 156 H 138 H (70-110) mg/dL Calcium (8.4-10.2) mg/dL AST (14-36) U/L ALT (4-34) U/L Total Protein (6.3-8.2) g/dL Albumin (3.5-5.0) g/dL Reference Lab Result 09/12/24 Range/Units 05:36 Plt Count (150-450) k/uL ABG pH 7.29 L (7.35-7.45) ABG pO2 82 L (83-108) mmHg Hemoglobin 7.3 L (11.4-16.0) gm/dL Sodium (137-145) mmol/L Chloride (98-107) mmol/L BUN (7-17) mg/dL Creatinine (0.52-1.04) mg/dL Glucose (74-99) mg/dL POC Glucose (mg/dL) (70-110) mg/dL Calcium (8.4-10.2) mg/dL AST (14-36) U/L ALT (4-34) U/L Total Protein (6.3-8.2) g/dL Albumin (3.5-5.0) g/dL Reference Lab Result
--- NOTE | 2024-09-12 10:55 | P.PN ---
Subjective Progress Note Date: 09/12/24 SURGICAL PROGRESS NOTE CHIEF COMPLAINT: Respiratory failure HISTORY OF PRESENT ILLNESS: Surgical service following in regards to tracheostomy and PEG tube placement. Per nursing staff family has made patient no CODE STATUS. Family is discussing if they want to proceed with trach and PEG. Tube feeds on hold. Afebrile. WBC 1.1 Hgb 7.3 platelets 47 sodium 132 potassium 5.3 creatinine 2.61 PHYSICAL EXAM: VITAL SIGNS: Reviewed. GENERAL: no acute distress. ABDOMEN: Soft. Nondistended. Nontender. NEUROLOGIC: Intubated and sedated ASSESSMENT: 1. Failure weaning from hypoxemic respiratory failure 2. Lung cancer 3. Multiple myeloma 4. End-stage renal disease dialysis dependent 5. Pancytopenia following chemotherapy 6. Right groin lymph node mass 7. Severe protein calorie malnutrition PLAN: -Family decided to proceed with comfort care. Tracheostomy and PEG tube for today have been cancelled. Physician Pot Puller note has been reviewed by physician. Signing provider agrees with the documented findings, assessment, and plan of care. Objective - Vital Signs Vital signs: Vital Signs Temp 99 F 09/12/24 08:00 Pulse 78 09/12/24 10:00 Resp 33 H 09/12/24 10:00 BP 84/43 09/12/24 10:00 Pulse Ox 99 09/12/24 10:00 FiO2 50 09/12/24 10:00 Intake & Output 09/11/24 09/12/24 09/12/24 18:59 06:59 18:59 Intake Total 700.105 869.914 144.319 Output Total 18 30 5 Balance 682.105 839.914 139.319 Weight 75.5 kg Intake: IV 276 276 83 .9NS KVO 240 240 80 .9NS Pressure Bag 36 36 3 Intake, IV Titration 149.105 288.914 61.319 Amount Norepinephrine 8 mg In 149.105 288.914 61.319 Sodium Chloride 0.9% 250 ml @ 0.03 MCG/KG/MIN 3. 106 mls/hr IV .Q24H [facility] Rx#:[id number] Tube Feeding 245 275 Other 30 30 Output: Urine 18 30 5 Other: Voiding Method Indwelling Catheter Indwelling Catheter Indwelling Catheter # Bowel Movements 1 ABP, PAP, CO, CI - Last Documented Arterial Blood Pressure 93/51 - Labs CBC & Chem 7: 09/12/24 07:49 09/12/24 07:49 Labs: Abnormal Lab Results - Last 24 Hours (Table) 09/07/24 09/11/24 09/11/24 Range/Units 13:40 06:00 06:00 WBC (3.8-10.6) k/uL RBC (3.80-5.40) m/uL Hgb (11.4-16.0) gm/dL Hct (34.0-46.0) % RDW (11.5-15.5) % Plt Count 48 L (150-450) k/uL Neutrophils # (Manual) (1.3-7.7) k/uL Lymphocytes # (Manual) (1.0-4.8) k/uL ABG pH (7.35-7.45) ABG pO2 (83-108) mmHg Hemoglobin (11.4-16.0) gm/dL Sodium 132 L (137-145) mmol/L Potassium (3.5-5.1) mmol/L Chloride 95 L (98-107) mmol/L Carbon Dioxide (22-30) mmol/L BUN 87 H (7-17) mg/dL Creatinine 2.17 H (0.52-1.04) mg/dL Glucose 115 H (74-99) mg/dL POC Glucose (mg/dL) (70-110) mg/dL Calcium 8.3 L (8.4-10.2) mg/dL AST 13 L (14-36) U/L ALT 43 H (4-34) U/L Total Protein 5.6 L (6.3-8.2) g/dL Albumin 2.3 L (3.5-5.0) g/dL Reference Lab Result See [facility] REF Reports A 09/11/24 09/11/24 09/11/24 Range/Units 12:15 17:53 23:21 WBC (3.8-10.6) k/uL RBC (3.80-5.40) m/uL Hgb (11.4-16.0) gm/dL Hct (34.0-46.0) % RDW (11.5-15.5) % Plt Count (150-450) k/uL Neutrophils # (Manual) (1.3-7.7) k/uL Lymphocytes # (Manual) (1.0-4.8) k/uL ABG pH (7.35-7.45) ABG pO2 (83-108) mmHg Hemoglobin (11.4-16.0) gm/dL Sodium (137-145) mmol/L Potassium (3.5-5.1) mmol/L Chloride (98-107) mmol/L Carbon Dioxide (22-30) mmol/L BUN (7-17) mg/dL Creatinine (0.52-1.04) mg/dL Glucose (74-99) mg/dL POC Glucose (mg/dL) 131 H 156 H 138 H (70-110) mg/dL Calcium (8.4-10.2) mg/dL AST (14-36) U/L ALT (4-34) U/L Total Protein (6.3-8.2) g/dL Albumin (3.5-5.0) g/dL Reference Lab Result 09/12/24 09/12/24 09/12/24 Range/Units 05:36 07:49 07:49 WBC 1.1 L* (3.8-10.6) k/uL RBC 2.46 L (3.80-5.40) m/uL Hgb 7.3 L (11.4-16.0) gm/dL Hct 22.0 L (34.0-46.0) % RDW 18.1 H (11.5-15.5) % Plt Count 47 L (150-450) k/uL Neutrophils # (Manual) 0.57 L (1.3-7.7) k/uL Lymphocytes # (Manual) 0.50 L (1.0-4.8) k/uL ABG pH 7.29 L (7.35-7.45) ABG pO2 82 L (83-108) mmHg Hemoglobin 7.3 L (11.4-16.0) gm/dL Sodium 132 L (137-145) mmol/L Potassium 5.3 H (3.5-5.1) mmol/L Chloride 96 L (98-107) mmol/L Carbon Dioxide 19 L (22-30) mmol/L BUN 109 H* (7-17) mg/dL Creatinine 2.61 H (0.52-1.04) mg/dL Glucose 133 H (74-99) mg/dL POC Glucose (mg/dL) (70-110) mg/dL Calcium 8.0 L (8.4-10.2) mg/dL AST (14-36) U/L ALT 40 H (4-34) U/L Total Protein 5.2 L (6.3-8.2) g/dL Albumin 2.2 L (3.5-5.0) g/dL Reference Lab Result
[2024-09-12] MEDS: HYDROmorphone 1 MG/ML 1 ML SYRINGE IVP PRN (11:36)
[2024-09-12] MEDS ORDERED: DIPHENOX-ATROP 2.5-0.025MG/5ML 60 ML BOTTLE PO PRN (11:38)
[2024-09-12] MEDS ORDERED: MORPHINE SULFATE 4 MG/ML SYRINGE IV PRN (11:38)
[2024-09-12] MEDS: MORPHINE SULFATE (100 MG/2 ML) 100 MG in SODIUM CHLORIDE 0.9% 100 ML IV SCH (12:42)
[2024-09-12] MEDS ORDERED: DIPHENOX-ATROP 2.5-0.025 MG 1 EACH TAB PO PRN (13:00)
[2024-09-12 14:23] VITALS: PULSE 0; RESP 0
--- NOTE | 2024-09-13 14:45 | CDI ---
Documentation Clarification Form Date: 09/13/2024 02:36:31 PM From: Lara Cardenas Phone: Admit Date: 08/23/2024 10:01:00 AM Patient Name: Jennifer Singh Visit Number: [id number] Discharge Date: 09/12/2024 01:05:00 PM ATTENTION: The Clinical Documentation Specialists (CDI) and [facility] Coding Staff appreciate your assistance in clarifying documentation. Please respond to the clarification below the line at the bottom and electronically sign. The CDI & [facility] Coding staff will review the response and follow-up if needed. Please note: Queries are made part of the Legal Health Record. If you have any questions, please contact the author of this message via ITS. Doctor/Provider: Frederick Vargas There is documentation of chronic kidney disease mineral bone disease per Nephrology Progress Notes. Additional clarification is requested. History/Risk Factors: 63yo F, ERICA on ESRD, Covid PNA w severe sepsis, AHRF on vent >96hrs, RLL pain d/e mass, multiple myeloma, anemia, ACSHF, palliative care Clinical Indicators: Phosphorus level 7.9 Treatment: monitored Can you please specify the mineral bone disease, if possible? [ x] Renal osteodystrophy [ ] Mineral bone disease of CKD, NOS [ ] Other, please specify [ ] Unable to determine (Template Last Revised: October 2020) MTDD
--- NOTE | 2024-09-21 08:56 | CDI ---
Documentation Clarification Form Date: 09/20/2024 09:20:00 AM From: Madhavi Martinez RN, CCDS Phone: [phone] Admit Date: 08/23/2024 10:01:00 AM Patient Name: Jennifer Singh Visit Number: [id number] Discharge Date: 09/12/2024 01:05:00 PM ATTENTION: The Clinical Documentation Specialists (CDI) and [facility] Coding Staff appreciate your assistance in clarifying documentation. Please respond to the clarification below the line at the bottom and electronically sign. The CDI & [facility] Coding staff will review the response and follow-up if needed. Please note: Queries are made part of the Legal Health Record. If you have any questions, please contact the author of this message via ITS. Doctor. Manny Delacruz Hypotension specially during her hemodialysis and recommended norepinephrine is documented in the progress notes on 08/30/24. Additional clarification regarding this diagnosis is requested. Patient maintained on Levophed drip per MAR 08/23-09/12 (titrate) Patient Intubated on mechanical vent 08/23-09/12 Patient continue on in house dialysis Tuesday, Tuesday, Tuesday per nephrology orders History/Risk Factors: Angina, COPD, Hypertension, ESRD on hemodialysis, Multiple myeloma Former smoker Clinical Indicators: 63-year-old female presented on 08/21/24 admit 08/23/24 She had right leg pain. Rapid response requiring intubation and mechanical ventilation the patient is respiratory failure on the basis of COPD, fluid overload and COVID Pneumonia On admission: VS: (04:00) 94/67 126 22 96k% 5/L (15:00 92/59 77 20 Mechanical vent 08/23 Labs COVID-Detected, WBC 8.5 HGB 8.7 NA 129 BUN 57 Cr 5.92 Treatment: ICU/Telemetry monitoring Levophed Drip per orders (08/23-09/12) Vasopressin 0.03 Units/min 09/08-09/09 Can the hypotension be further specified? [ x ] Hypotension due to patient other comorbid conditions, of severe sepsis with septic shock, COVID-Pneumonia, bacterial pneumonia, multiple myeloma [ ] Hypotension due to Dialysis is clinically significant and not a complication [ ] Other Condition, please specify [ ] Unable to determine (Template Last Revised: October 2020) MTDD
== END 2024-09-12 13:05 | disposition expired | DRG 207 ==
LOC: EC 05:05 → 5NMEDONC 06:46 → 3SCARD 08-22 20:56 → OBSVTOIN 08-23 10:01 → 2SICU 08-23 13:35
PROVIDERS: ADMIT Family Medicine; ATTEND Family Medicine
PROC: 5A1D70Z Performance of Urinary Filtration, Intermittent, Less than 6 Hours Per Day (ICD-10-PCS; 2024-08-21)
PROC: 8E0ZXY6 Isolation (ICD-10-PCS; 2024-08-21)
PROC: 5A1955Z Respiratory Ventilation, Greater than 96 Consecutive Hours (ICD-10-PCS; principal; 2024-08-23)
PROC: 0BH18EZ Insertion of Endotracheal Airway into Trachea, Via Natural or Artificial Opening Endoscopic (ICD-10-PCS; 2024-08-23)
PROC: 03HY32Z Insertion of Monitoring Device into Upper Artery, Percutaneous Approach (ICD-10-PCS; 2024-08-23)
PROC: 4A133B1 Monitoring of Arterial Pressure, Peripheral, Percutaneous Approach (ICD-10-PCS; 2024-08-23)
PROC: 4A133J1 Monitoring of Arterial Pulse, Peripheral, Percutaneous Approach (ICD-10-PCS; 2024-08-23)
PROC: 05H633Z Insertion of Infusion Device into Left Subclavian Vein, Percutaneous Approach (ICD-10-PCS; 2024-08-23)
PROC: 3E033XZ Introduction of Vasopressor into Peripheral Vein, Percutaneous Approach (ICD-10-PCS; 2024-08-23)
PROC: 3E053RZ Introduction of Antiarrhythmic into Peripheral Artery, Percutaneous Approach (ICD-10-PCS; 2024-08-23)
PROC: 5A09357 Assistance with Respiratory Ventilation, Less than 24 Consecutive Hours, Continuous Positive Airway Pressure (ICD-10-PCS; 2024-08-23)
PROC: 3E0G76Z Introduction of Nutritional Substance into Upper GI, Via Natural or Artificial Opening (ICD-10-PCS; 2024-08-23)
PROC: 30233N1 Transfusion of Nonautologous Red Blood Cells into Peripheral Vein, Percutaneous Approach (ICD-10-PCS; 2024-08-28)
PROC: 30233R1 Transfusion of Nonautologous Platelets into Peripheral Vein, Percutaneous Approach (ICD-10-PCS; 2024-09-10)
DX: U07.1 COVID-19 (principal); R65.21 Severe sepsis with septic shock; A41.89 Other specified sepsis; G92.8 Other toxic encephalopathy; D61.810 Antineoplastic chemotherapy induced pancytopenia; E43 Unspecified severe protein-calorie malnutrition; J12.82 Pneumonia due to coronavirus disease 2019; I50.23 Acute on chronic systolic (congestive) heart failure; Z51.5 Encounter for palliative care; Z66 Do not resuscitate; N18.6 End stage renal disease; J15.9 Unspecified bacterial pneumonia; J96.01 Acute respiratory failure with hypoxia; I13.2 Hypertensive heart and chronic kidney disease with heart failure and with stage 5 chronic kidney disease, or end stage renal disease; C90.00 Multiple myeloma not having achieved remission; C34.11 Malignant neoplasm of upper lobe, right bronchus or lung; Z99.2 Dependence on renal dialysis; J44.0 Chronic obstructive pulmonary disease with (acute) lower respiratory infection; I27.22 Pulmonary hypertension due to left heart disease; D63.1 Anemia in chronic kidney disease; E03.9 Hypothyroidism, unspecified; I07.1 Rheumatic tricuspid insufficiency; E85.81 Light chain (AL) amyloidosis; N17.8 Other acute kidney failure; I47.19 Other supraventricular tachycardia; I48.3 Typical atrial flutter; J44.1 Chronic obstructive pulmonary disease with (acute) exacerbation; I48.19 Other persistent atrial fibrillation; I42.9 Cardiomyopathy, unspecified; D46.Z Other myelodysplastic syndromes; E88.A Wasting disease (syndrome) due to underlying condition; Z53.8 Procedure and treatment not carried out for other reasons; E87.5 Hyperkalemia; I49.1 Atrial premature depolarization; I49.49 Other premature depolarization; L89.151 Pressure ulcer of sacral region, stage 1; T45.1X5A Adverse effect of antineoplastic and immunosuppressive drugs, initial encounter; G89.29 Other chronic pain; R59.0 Localized enlarged lymph nodes; G57.82 Other specified mononeuropathies of left lower limb; N25.0 Renal osteodystrophy; R00.1 Bradycardia, unspecified; R19.7 Diarrhea, unspecified; M19.90 Unspecified osteoarthritis, unspecified site; Z79.899 Other long term (current) drug therapy; Z87.891 Personal history of nicotine dependence; Z79.82 Long term (current) use of aspirin; Z68.24 Body mass index [BMI] 24.0-24.9, adult
CPT/HCPCS: 36415; 36573; 36600; 70450; 71045; 71250; 72192; 73502; 80048; 80053; 80202; 81001; 82140; 82533; 82607; 82784; 82805; 83605; 83735; 83883; 84100; 84145; 84165; 84439; 84443; 85025; 85027; 85379; 85610; 86140; 86706; 86850; 86870; 86880; 86900; 86901; 86902; 86920; 87040; 87070; 87205; 87324; 87340; 87636; 90935; 93005; 93306; 94002; 94003; 94640; 94660; 94760; 95822; 96361; 96374; 96376; 99285